=== PATIENT | male | born 1950 | race Caucasian/White ===

== ENCOUNTER 2023-03-15 18:18 | Inpatient (IN) | payer OTHER, SELFPAY ==
[2023-03-15] VITALS (10 sets, daily range): BP systolic 110–140; BP diastolic 58–78; PULSE 58–89; RESP 14–24; TEMP 36.2–36.5; O2SAT 92–95; BMI 52.4
--- NOTE | ~2023-03-15 | XR_ITS ---
EXAMINATION: XR CHEST CLINICAL INFORMATION: Cough COMPARISON: None available. TECHNIQUE: Frontal view of the chest was obtained. FINDINGS: Examination is limited due to patient's body habitus. There is no evidence of infiltrates nodules or pleural effusions seen. Cardiomediastinal silhouette is mildly prominent. XR/XR chest 1V IMPRESSION: Mild cardiomegaly
--- NOTE | ~2023-03-15 | CT_ITS ---
EXAMINATION: CT HEAD WITHOUT CONTRAST CLINICAL INFORMATION: Altered mental status. COMPARISON: CT head dated 03/16/2023. TECHNIQUE: Contiguous axial imaging was performed from the skull base to vertex without intravenous administration of contrast. This CT examination was performed using dose optimization techniques as appropriate, variously including the following: *Automated exposure control *Adjustment of mA and/or kV according to patient size (this includes techniques or standardized protocols for targeted exams where dose is matched to indication/reason for exam; i.e. extremities or head) *Use of iterative reconstruction technique DLP: 828 mGy-cm FINDINGS: There is no intracranial hemorrhage. There is no evidence of acute/subacute cerebral or cerebellar infarction. There is no mass effect. No midline shift. No extra-axial fluid collection. The ventricles are normal in size. The calvarium is intact. Visualized paranasal sinuses are well aerated. There is a small inferior right mastoid air cell effusion. CT/CT head/brain wo IV con IMPRESSION: No acute intracranial pathology.
--- NOTE | ~2023-03-15 | US_ITS ---
EXAMINATION: US ABDOMEN LIMITED CLINICAL INFORMATION: Mid back swelling. COMPARISON: None available. TECHNIQUE: Focused real-time imaging of the right mid back lesion on the left was performed. US/US abdomen limited FINDINGS / IMPRESSION: There is a 2.7 x 2.2 x 2.9 cm complex fluid collection overlying the mid left back. There is a skin tract identified. There is no appreciable flow within or around the lesion. This may represent an abscess.
--- NOTE | ~2023-03-15 | CT_ITS ---
EXAMINATION: CT HEAD WITHOUT CONTRAST CLINICAL INFORMATION: Visual and auditory hallucinations, and nystagmus. COMPARISON: None available. TECHNIQUE: Contiguous axial imaging was performed from the skull base to vertex without intravenous administration of contrast. This CT examination was performed using dose optimization techniques as appropriate, variously including the following: *Automated exposure control *Adjustment of mA and/or kV according to patient size (this includes techniques or standardized protocols for targeted exams where dose is matched to indication/reason for exam; i.e. extremities or head) *Use of iterative reconstruction technique DLP: 826 mGy-cm FINDINGS: There is no acute intra-axial, extra-axial bleed, masses or midline shift. There is no acute infarction evolution. There is no edema. The olguin to white matter differentiation is maintained normal. The lateral ventricles are symmetrical in size and configuration without enlargement. The posterior fossa is unremarkable. Bone windows reveal no calvarial abnormality. There is no scalp soft tissue abnormality. Bilateral paranasal sinuses and mastoid air cells are well-aerated. CT/CT head/brain wo IV con IMPRESSION: No acute intracranial process seen.
--- NOTE | ~2023-03-15 | XR_ITS ---
EXAMINATION: XR CHEST CLINICAL INFORMATION: Hypoxia. COMPARISON: Chest radiograph earlier today at 11:52 AM. TECHNIQUE: AP view of the chest was obtained. FINDINGS: Limited evaluation secondary to rotation and poor inspiratory effort. New multifocal patchy and interstitial opacities. Stable prominence of the cardiomediastinal silhouette. No pleural effusion or pneumothorax. No acute osseous findings. XR/XR chest 1V IMPRESSION: Worsening pulmonary aeration with new multifocal patchy and interstitial opacities; the rapid development of findings are worrisome for aspiration, pulmonary edema and atelectasis. Close attention on follow-up recommended.
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
--- NOTE | 2023-03-15 18:55 | PC.NURSE ---
labs obtained/sent to lab.
[2023-03-15 19:01] LABS: MANUAL DIFF FLAG NO
[2023-03-15 19:07] LABS: Basophils Percent Auto 0.4 % (0-2); Eosinophils Absolute Auto 0.2 X10*3/uL (0.0-0.4); Eosinophils Percent Auto 2.2 % (0-4); Hematocrit 42.1 % (42.0-52.0); Imm Gran Abs Auto 0.01 X10*3/uL (0.00-0.03); Imm Gran Pct Auto 0.1 % (0.0-0.4); Lymphocytes Percent Auto 13.4 % (20-40); Mean Corpuscular HGB Conc 33.3 g/dl (31.0-36.0); Mean Corpuscular Hemoglobin 32.9 pg (27.0-33.0); Mean Corpuscular Volume 99.1 fL (80.0-98.0); Mean Platelet Volume 9.7 fL (9.4-12.4); Monocytes Absolute Auto 0.5 X10*3/uL (0.1-1.2); Monocytes Percent Auto 7.1 % (2-11); Neutrophils Absolute Auto 5.5 x10*3/uL (2.0-8.3); Neutrophils Percent Auto 76.8 % (45-73); Platelet Count 159 X10*3/uL (160-400); Red Blood Count 4.25 X10*6/uL (4.60-5.80); White Blood Count 7.2 X10*3/uL (4.8-10.8)
--- NOTE | 2023-03-15 19:11 | PC.NURSE ---
Assumed care for patient. Pt currently resting at the bedside. No apparent distress noted. O2Sat 95% on 3L NC. Pt states unable to provide a urine sample at this time. Pending lab results. Pt made aware of plan of care.
[2023-03-15 19:17] LABS: Alanine Aminotransferase 12 U/L (0-40); Albumin Level 3.6 g/dL (3.5-5.0); Alkaline Phosphatase 140 U/L (39-117); Anion Gap 16 (12-20); Aspartate Amino Transferase 13 U/L (5-37); Bilirubin Direct 0.3 mg/dL (0.0-0.5); Bilirubin Total 0.8 mg/dL (0.0-1.0); Blood Urea Nitrogen 18 mg/dL (9-16); Calcium 9.5 mg/dL (8.4-10.2); Carbon Dioxide 27 mmol/L (22-29); Chloride 103 mmol/L (96-108); Estimated Glomerular Filt Rate 56; Glucose Random 108 mg/dL (60-115); Potassium 4.2 mmol/L (3.3-5.1); Sodium 142 mmol/L (135-145); Total Protein 6.5 g/dL (6.5-8.0)
--- NOTE | 2023-03-15 19:56 | MHC.EDTECH ---
Patient inc therefore patient changed and repositioned
--- NOTE | 2023-03-15 20:15 | PC.NURSE ---
This nurse called to the bedside as pt was agitated and combative attempting to get out of bed. Pt advised to remain in bed without any success. Pt is unredirectable, yelling and screaming obscenities attempting to grab at the staff. Removed nasal canula. MD at the bedside. Verbal order obtained to medicate pt for safety. Pt medicated. Tolerated well. Pt placed on the air sampling and monitoring and placed back on the nasal canula. Pt then became calm and cooperative and went to sleep with no complication. VSS. Breaths even regular and unlabored. @ 2140 Bladder scan showed 630cc of urine. Straight cath done as pt not able to provide a urine sample. Pt tolerated well. 500cc of urine removed. Urine sent to the lab. @ 2200 Video camera placed at the bedside for safety.
[2023-03-15] MEDS: Haloperidol Lactate 5 MG/ML VIAL IM (20:18)
[2023-03-15] MEDS: diphenhydrAMINE HCL 50 MG/ML VIAL IM (20:18)
[2023-03-15] MEDS: Ziprasidone Mesylate 20 MG VIAL IM (20:18)
[2023-03-15 21:53] LABS: Appearance Urine Clear; Color Urine Yellow; Glucose Urine UA Negative (Negative); Leukocyte Esterase Urine Negative (Negative); Nitrite Urine Negative (Negative); PH 5.5 (5.0-9.0); Urine Blood Negative (Negative); Urine Ketones Negative (Negative); Urine Protein Negative (Neg-Trace)
--- NOTE | 2023-03-15 22:34 | PHA.MEDREC ---
Pharmacy Consult ? Medication Reconciliation Pharmacy has completed the medication reconciliation. Patient came from [place] with med list. Guerda Glez, RoslynD
[2023-03-16] VITALS (7 sets, daily range): BP systolic 113–135; BP diastolic 48–68; PULSE 57–77; RESP 12–20; TEMP 36.7–36.8; O2SAT 92–95
--- NOTE | 2023-03-16 | ECG_ITS ---
Test Reason : QTC PROLONGNATION Blood Pressure : / mmHG Vent. Rate : 069 BPM Atrial Rate : 069 BPM P-R Int : 236 ms QRS Dur : 156 ms QT Int : 446 ms P-R-T Axes : 000 129 -13 degrees QTc Int : 477 ms Sinus rhythm with 1st degree A-V block Right bundle branch block Abnormal ECG No previous ECGs available Referred By: Rhonda Li Electronically Signed By:MARCUS WORTHY MD
[2023-03-16 09:30] LABS: Amphetamine Screen Urine Not Detected (Not Detect); Barbiturates, Urine Not Detected (Not Detect); Benzodiazepines Screen Urine Not Detected (Not Detect); Cannabinoid Screen Urine Not Detected (Not Detect); Cocaine Screen Urine Not Detected (Not Detect); Fentanyl, urine Not Detected (Not Detect); Opiate Screen Urine Not Detected (Not Detect); Phencyclidine Screen Urine Not Detected (Not Detect)
--- NOTE | 2023-03-16 10:18 | PC.NURSE ---
Pt alert, answering questions appropriately. Breathing even and unlabored. Skin warm and dry. Pt denies any pain or SOB, resting in bed. Pt noted to be incontinent of urine, cleaned and [place] cath placed. No agitation or aggression noted.
[2023-03-16 11:41] LABS: TSH reflex Free T4 3.36 uIU/mL (0.32-4.0)
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
[2023-03-16 12:23] LABS: Glucose, Whole Blood 103 mg/dL (60-115)
[2023-03-16 12:35] LABS: Iron 119 mcg/dL (45-160); Percent Iron Saturation 53 % (15-50); Total Iron Binding Capacity 223 mcg/dL (228-428); Unsaturated Iron Binding 104 ug/dL
[2023-03-16 12:49] LABS: Ferritin 144 ng/mL (20-250)
[2023-03-16] MEDS: Furosemide 40 MG TABLET PO (13:02)
[2023-03-16] MEDS: carvediloL 3.125 MG TABLET PO ×2 (13:02→21:12)
[2023-03-16] MEDS: Aspirin Enteric Coated 81 MG TABLET.DR PO (13:02)
[2023-03-16] MEDS: HaloperidoL 1 MG TABLET PO ×2 (13:02→21:11)
[2023-03-16] MEDS: Clopidogrel Bisulfate 75 MG TABLET PO (13:02)
[2023-03-16] MEDS: metFORMIN HCl ER 500 MG TAB.ER.24H PO (13:07)
[2023-03-16] MEDS: Docusate Sodium 100 MG CAPSULE PO ×2 (13:07→21:11)
[2023-03-16] MEDS: Folic Acid 1 MG TABLET PO (13:07)
[2023-03-16] MEDS: Fluticasone/Umeclidinium/Vilanterol 200/62.5/25 BLST.W.DEV 1 PUFF INHALE (13:10)
[2023-03-16 13:17] LABS: Glucose, Whole Blood 95 mg/dL (60-115)
--- NOTE | 2023-03-16 13:21 | PC.NURSE ---
Pt accepted some meds. VSS. Seen by Rhonda JEROME and assessed. Pt sleeping but awakes easily to voice and continues to follow commands. POC checked and 95. Declines lunch, Metformin held as pt refused breakfast as well.
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
--- NOTE | 2023-03-16 15:24 | PC.NURSE ---
Pt placed on hospital bed for comfort Tech attempted Vitamin b12 and folate, unable, no pt refusing more sticks at this time, will inquire to see if lab can add on to blood in lab at this time, dr Guzman aware
--- NOTE | 2023-03-16 19:11 | PC.NURSE ---
Assumed care of pt. pt lying on stretcher, eyes closed, respiratinos even and unlabored, no acute distress at this time.
--- NOTE | 2023-03-16 20:16 | MHC.EDTECH ---
[place] catheter placed on patient at 2015
[2023-03-16] MEDS: traZODone HCL 50 MG TABLET PO (21:11)
[2023-03-16] MEDS: Atorvastatin Calcium 80 MG TABLET PO (21:11)
[2023-03-16] MEDS: Gabapentin 300 MG CAPSULE PO (21:11)
[2023-03-16] MEDS: Sennosides 8.6 MG TABLET 17.2 MG PO (21:11)
[2023-03-17] VITALS (9 sets, daily range): BP systolic 103–128; BP diastolic 49–74; PULSE 58–70; RESP 16–22; TEMP 36.3–36.7; O2SAT 92–94
--- NOTE | 2023-03-17 01:15 | PC.NURSE ---
Pt bedding changed, pt cleaned from incontinence of stool and urine. Pt AxO x4, but states unable to press call gamboa prior to BM and urination.
--- NOTE | 2023-03-17 03:06 | PC.NURSE ---
Pt bedding and pads changed again after pt incontinent of stool and urine. pt sts that he is aware of when he has to go but unaware of why he will not notify staff.
--- NOTE | 2023-03-17 07:11 | MHC.EDTECH ---
This pct attempted to draw labs on patient and the patients states he doesnt want anymore labs drawn. RN Aware
--- NOTE | 2023-03-17 07:23 | PC.NURSE ---
Resumed care of patient, he is currently resting. PCT in room collecting vitals, pt continues to refuse lab work ordered d/t multiple attempts, MD aware. Pt sating 88% when sleeping but comes up to mid 90s on his own.
--- NOTE | 2023-03-17 07:57 | PC.NURSE ---
Pt refusing to feed himself breakfast, this RN asked patient what he would do if he was at home, where he stated he would feed himself. he stated his arms are too weak for him to do it here.
[2023-03-17] MEDS: Fluticasone/Umeclidinium/Vilanterol 200/62.5/25 BLST.W.DEV 1 PUFF INHALE (08:02)
--- NOTE | 2023-03-17 09:29 | PC.NURSE ---
Ths RN attempted to bring in morning medications for patient he reported he was not going to take them because the bed was to uncomfortable. Will attempt again. Provider aware.
--- NOTE | 2023-03-17 10:42 | PC.NURSE ---
This RN attemptd to give patient his morning medications as he was in agreement if given with chocolate ice cream. However this RN and tech were at bedside and patient began to spit ice cream and medications out and in our faces. Stating the doctors dont care, I am not taking it, it does nothing for me . Provider aware of situation and that patient is refusing medications.
[2023-03-17 11:53] LABS: COVID-19 Test Negative (Negative); IDNOW Serial# 152EDE1D
--- NOTE | 2023-03-17 13:19 | PC.NURSE ---
vss and up to date at this time. pt calm/cooperative a this time/eating lunch. daughter bedside visiting pt at this time. pt waiting to be transferred to [facility] at this time. no sob/wob noted. respirations even and unlabored. bed alarm turned on. camera in place for safety precautions. call gamboa placed within reach.
--- NOTE | 2023-03-17 13:44 | PC.NURSE ---
this RN gave report to SREE De La Cruz on [facility] at this time. transport notified at this time.
[2023-03-17] MEDS: Gabapentin 300 MG CAPSULE PO (14:39)
--- NOTE | 2023-03-17 15:33 | P.CNPS_ITS ---
History of Present Illness Date of Service: 03/17/2023 Chief Complaint: FROM SNF,HALLUCINATIONS, HCP GAVE CONSENT, NO SECT Sources of Information: patient interviewed, chart reviewed and crisis/core team assessment reviewed Additional Sources of Information: daughter HPI Narrative: Interim Hx: met with pt and daughter. She reports pt is almost blind due to cataracts. She reports he appears at baseline which is calm, although evidently with significant cognitive impairments. Daughter reports plan is for pt to return home with services. At this point, after one month of short term rehab minimal improvement is noted. He reports he is fine, knows he is in hospital but confused as to situation. Diagnostics Vital Signs (24Hr): Vital Signs - 24 hr 03/16/23 16:03 03/16/23 19:11 03/16/23 23:45 Temperature 98.1 F Pulse Rate 57 74 Respiratory Rate 20 16 18 Blood Pressure 135/61 122/68 Pulse Oximetry 95 92 Oxygen Delivery Method Nasal Cannula Room Air Oxygen Flow Rate 3 03/17/23 06:17 03/17/23 07:15 03/17/23 08:03 Temperature 97.4 F 97.9 F Pulse Rate 66 70 70 Respiratory Rate 18 16 16 Blood Pressure 128/66 120/68 Pulse Oximetry 94 93 Oxygen Delivery Method Room Air Nasal Cannula Oxygen Flow Rate 3 03/17/23 13:17 03/17/23 14:41 Temperature 98.0 F 97.6 F Pulse Rate 59 58 Respiratory Rate 16 16 Blood Pressure 103/74 115/49 L Pulse Oximetry 93 93 Oxygen Delivery Method Nasal Cannula Nasal Cannula Oxygen Flow Rate 3 3 BMI result Body Mass Index 52.4 Labs 03/15/23 18:55 03/15/23 18:55 Labs: Laboratory Results - last 48 hr 03/15/23 03/15/23 03/15/23 18:55 21:44 21:46 WBC 7.2 RBC 4.25 L Hgb 14.0 Hct 42.1 MCV 99.1 H MCH 32.9 MCHC 33.3 RDW 15.0 Plt Count 159 L MPV 9.7 Immature Gran % (Auto) 0.1 Neut % (Auto) 76.8 H Lymph % (Auto) 13.4 L Ransom % (Auto) 7.1 Eos % (Auto) 2.2 Baso % (Auto) 0.4 Lymph # (Auto) 1.0 L Ransom # (Auto) 0.5 Eos # (Auto) 0.2 Baso # (Auto) 0.0 Abs Immat Gran (auto) 0.01 Absolute Neuts (auto) 5.5 Absolute Nucleated RBC 0.000 Nucleated RBC % (auto) 0.0 Sodium 142 Potassium 4.2 Chloride 103 Carbon Dioxide 27 Anion Gap 16 BUN 18 H Creatinine 1.25 Estim Creat Clear Calc 88.0 Estimated GFR 56 POC Glucose Random Glucose 108 Calcium 9.5 Iron TIBC % Saturation Unsat Iron Binding Ferritin Total Bilirubin 0.8 Direct Bilirubin 0.3 AST 13 ALT 12 Alkaline Phosphatase 140 H Total Protein 6.5 Albumin 3.6 TSH Urine Color Yellow Urine Appearance Clear Urine pH 5.5 Ur Specific Kevil 1.020 Urine Protein Negative Urine Glucose (UA) Negative Urine Ketones Negative Urine Blood Negative Urine Nitrite Negative Ur Leukocyte Esterase Negative Urine Opiates Screen Not Detected Urine Fentanyl Screen Not Detected Ur Barbiturates Screen Not Detected Ur Phencyclidine Scrn Not Detected Ur Amphetamines Screen Not Detected U Benzodiazepines Scrn Not Detected Urine Cocaine Screen Not Detected U Marijuana (THC) Screen Not Detected COVID-19 ([facility]) COVID-[employer]Move 03/16/23 03/16/23 03/16/23 10:58 12:18 13:11 WBC RBC Hgb Hct MCV MCH MCHC RDW Plt Count MPV Immature Gran % (Auto) Neut % (Auto) Lymph % (Auto) Ransom % (Auto) Eos % (Auto) Baso % (Auto) Lymph # (Auto) Ransom # (Auto) Eos # (Auto) Baso # (Auto) Abs Immat Gran (auto) Absolute Neuts (auto) Absolute Nucleated RBC Nucleated RBC % (auto) Sodium Potassium Chloride Carbon Dioxide Anion Gap BUN Creatinine Estim Creat Clear Calc Estimated GFR POC Glucose 103 95 Random Glucose Calcium Iron 119 TIBC 223 L % Saturation 53 H Unsat Iron Binding 104 Ferritin 144 Total Bilirubin Direct Bilirubin AST ALT Alkaline Phosphatase Total Protein Albumin TSH 3.36 Urine Color Urine Appearance Urine pH Ur Specific Kevil Urine Protein Urine Glucose (UA) Urine Ketones Urine Blood Urine Nitrite Ur Leukocyte Esterase Urine Opiates Screen Urine Fentanyl Screen Ur Barbiturates Screen Ur Phencyclidine Scrn Ur Amphetamines Screen U Benzodiazepines Scrn Urine Cocaine Screen U Marijuana (THC) Screen COVID-19 ([facility]) COVID-19 [employer]) 03/17/23 11:26 WBC RBC Hgb Hct MCV MCH MCHC RDW Plt Count MPV Immature Gran % (Auto) Neut % (Auto) Lymph % (Auto) Ransom % (Auto) Eos % (Auto) Baso % (Auto) Lymph # (Auto) Ransom # (Auto) Eos # (Auto) Baso # (Auto) Abs Immat Gran (auto) Absolute Neuts (auto) Absolute Nucleated RBC Nucleated RBC % (auto) Sodium Potassium Chloride Carbon Dioxide Anion Gap BUN Creatinine Estim Creat Clear Calc Estimated GFR POC Glucose Random Glucose Calcium Iron TIBC % Saturation Unsat Iron Binding Ferritin Total Bilirubin Direct Bilirubin AST ALT Alkaline Phosphatase Total Protein Albumin TSH Urine Color Urine Appearance Urine pH Ur Specific Kevil Urine Protein Urine Glucose (UA) Urine Ketones Urine Blood Urine Nitrite Ur Leukocyte Esterase Urine Opiates Screen Urine Fentanyl Screen Ur Barbiturates Screen Ur Phencyclidine Scrn Ur Amphetamines Screen U Benzodiazepines Scrn Urine Cocaine Screen U Marijuana (THC) Screen COVID-19 ([facility]) Negative COVID-19 Clin Com See Note Imaging Radiology Impressions: ITS Impressions Head CT 03/16/23 11:03 IMPRESSION: No acute intracranial process seen. Mental Status Exam Mental Status Exam Narrative: Appearance: MO, wearing hospital gown, poor hygiene, in NAD Behavior: difficult to engage, poor attention Psychomotor: no agitation or retardation noted Speech: mumbling, single words, mostly unintelligible, minimally spontaneous TP: disorganized Affect: somewhat somnolent Insight/judgment: impaired x 2 Cog/memory: alert with verbal stimuli, poor attention, knows he is in the hospital but thinks he is at either [place] or [place], not oriented to situation Medications Medications Current Medications Albuterol Sulfate (Albuterol Sulfate 90 Mcg 8 Gm Inhaler) 2 puff INHALE Q4H PRN PRN Reason: Wheezing Aspirin (Aspirin Enteric Coated 81 Mg Tablet.) 81 mg PO DAILY [facility] Last Admin: 03/17/23 10:41 Dose: Not Given Atorvastatin Calcium (Atorvastatin Calcium 80 Mg Tablet) 80 mg PO BEDTIME [facility] Last Admin: 03/16/23 21:11 Dose: 80 mg Carvedilol (Carvedilol 3.125 Mg Tablet) 3.125 mg PO BID [facility]; Protocol Last Admin: 03/17/23 10:41 Dose: Not Given Clopidogrel Bisulfate (Clopidogrel Bisulfate 75 Mg Tablet) 75 mg PO DAILY [facility] Last Admin: 03/17/23 10:41 Dose: Not Given Cyanocobalamin (Cyanocobalamin (Vitamin B-12) 1,000 Mcg/Ml Vial) 1,000 mcg IM Q30D [facility] Docusate Sodium (Docusate Sodium 100 Mg Capsule) 100 mg PO BID [facility] Last Admin: 03/17/23 10:42 Dose: Not Given Fluticasone/Umeclidinium/Vilanterol (Fluticasone/Umeclidinium/Vilanterol 200/62.5/25 Blst.W.Dev) 1 puff INHALE RDAILY [facility] Last Admin: 03/17/23 08:02 Dose: 1 puff Folic Acid (Folic Acid 1 Mg Tablet) 1 mg PO DAILY [facility] Last Admin: 03/17/23 10:42 Dose: Not Given Furosemide (Furosemide 40 Mg Tablet) 40 mg PO DAILY [facility]; Protocol Last Admin: 03/17/23 10:42 Dose: Not Given Gabapentin (Gabapentin 300 Mg Capsule) 300 mg PO TID [facility] Last Admin: 03/17/23 14:39 Dose: 300 mg Haloperidol (Haloperidol 1 Mg Tablet) 1 mg PO BID [facility] Last Admin: 03/17/23 10:42 Dose: Not Given Lactulose (Lactulose 20 Gm/30 Ml Solution) 10 gm PO DAILY [facility] Last Admin: 03/17/23 10:42 Dose: Not Given Metformin HCl (Metformin Hcl Er 500 Mg Tab.Er.24h) 500 mg PO DAILY [facility] Last Admin: 03/17/23 10:42 Dose: Not Given Polyethylene Glycol (Polyethylene Glycol 3350 17 Gm Powd.Pack) 17 gm PO DAILY [facility] Last Admin: 03/17/23 10:42 Dose: Not Given Senna (Sennosides 8.6 Mg Tablet) 17.2 mg PO BEDTIME [facility] Last Admin: 03/16/23 21:11 Dose: 17.2 mg Sertraline HCl (Sertraline Hcl 100 Mg Tablet) 100 mg PO DAILY [facility] Last Admin: 03/17/23 10:42 Dose: Not Given Trazodone HCl (Trazodone Hcl 50 Mg Tablet) 50 mg PO BEDTIME [facility] Last Admin: 03/16/23 21:11 Dose: 50 mg Allergies Allergies Allergy/AdvReac Type Severity Reaction Status Date / Time No Known Allergies Allergy Verified 03/15/23 18:32 Assessment & Plan Assessment & Plan (1) Delirium due to another medical condition: Status: Acute Code(s): F05 - Delirium due to known physiological condition (2) Major neurocognitive disorder: Status: Acute Code(s): F03.90 - Unspecified dementia, unspecified severity, without behavioral disturbance, psychotic disturbance, mood disturbance, and anxiety Plan Mr. Villalobos is a 72 year-old male with hx of dementia who presents with s/s of delirum--> poor attention, disorganized thought process (which apparently not baseline), sent from [facility] due to combative behaviors at facility. PLAN 03/17/2023- pt appears calm, with evident memory/cognitive impairment. Still not oriented to situation but knows this is a hospital. Daughter states this seems to be his baseline, does not think he is far off. We discussed plan to return home with services- will referred pt back to case management Total time managing care of this patient today ____ minutes.
[2023-03-17] MEDS: diphenhydrAMINE HCL 50 MG/ML VIAL IM (18:04)
[2023-03-17] MEDS: Ziprasidone Mesylate 20 MG VIAL IM (18:05)
[2023-03-17] MEDS: Haloperidol Lactate 5 MG/ML VIAL IM (18:05)
--- NOTE | 2023-03-17 18:09 | PC.NURSE ---
PT began screaming profanities at multiple staff members, kicking staff, grabbing staffs cloths to move closer to pt. Security called to bedside, IM medication administered per order
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
--- NOTE | 2023-03-17 19:28 | PC.NURSE ---
Pt continues to rip off O2 probe, not allowing Bp cuff on. HCP is back at bedside, CM requested to go talk with family that is at bedside.
[2023-03-17 21:10] LABS: Glucose, Whole Blood 83 mg/dL (60-115)
[2023-03-17 22:02] LABS: Folate 7.6 ng/mL (> or = 4.0); Vitamin B12 852 pg/mL (200-900)
[2023-03-18 02:08] VITALS: BP 129/58; PULSE 55; RESP 16; O2SAT 92
--- NOTE | 2023-03-18 02:12 | MHC.EDTECH ---
External cath. placed at this time.
--- NOTE | 2023-03-18 06:30 | PC.NURSE ---
Pt overall had an uneventful night. Refused PO meds but allowed staff to assist with cleaning him up due to incontinence. Tech applied [place] cath, pt resting in bed, breathing even an unlabored, O2 sats 97%on 3L while sleeping. Pt had dyspnea while at rest.
[2023-03-18] MEDS: Fluticasone/Umeclidinium/Vilanterol 200/62.5/25 BLST.W.DEV 1 PUFF INHALE (07:47)
[2023-03-18 07:49] VITALS: PULSE 63; RESP 16; O2SAT 92
[2023-03-18] MEDS: Gabapentin 300 MG CAPSULE PO ×3 (08:30→20:11)
[2023-03-18] MEDS: Sertraline HCL 100 MG TABLET PO (08:31)
[2023-03-18] MEDS: HaloperidoL 1 MG TABLET PO (08:31)
[2023-03-18 09:20] VITALS: PULSE 63
--- NOTE | 2023-03-18 10:18 | PC.NURSE ---
pt calm, cooperative. no distress, behavior non-concerning at this time. plan of care ongoing.
--- NOTE | 2023-03-18 12:42 | PC.NURSE ---
linens and bed changed. pt was incontinent of large amounts of soft brown stool.
--- NOTE | 2023-03-18 13:04 | P.CNPS_ITS ---
History of Present Illness Date of Service: 03/18/23 Chief Complaint: FROM SNF,HALLUCINATIONS, HCP GAVE CONSENT, NO SECT Sources of Information: patient interviewed, chart reviewed and crisis/core team assessment reviewed HPI Narrative: Interim Hx: pt combative last evening, trying to take his IV and throwing things to staff. He received IM geodone and ativan. Will schedule seroquel 50mg po TID for agitation. Diagnostics Vital Signs (24Hr): Vital Signs - 24 hr 03/17/23 13:17 03/17/23 14:41 03/17/23 18:05 Temperature 98.0 F 97.6 F Pulse Rate 59 58 70 Respiratory Rate 16 16 22 H Blood Pressure 103/74 115/49 L Pulse Oximetry 93 93 93 Oxygen Delivery Method Nasal Cannula Nasal Cannula Nasal Cannula Oxygen Flow Rate 3 3 2 03/17/23 18:20 03/17/23 18:35 03/17/23 18:50 Temperature Pulse Rate 68 Respiratory Rate 16 18 16 Blood Pressure Pulse Oximetry 92 93 Oxygen Delivery Method Nasal Cannula Nasal Cannula Oxygen Flow Rate 2 2 03/18/23 02:08 03/18/23 07:49 03/18/23 09:20 Temperature Pulse Rate 55 63 63 Respiratory Rate 16 16 Blood Pressure 129/58 L Pulse Oximetry 92 Oxygen Delivery Method Room Air Nasal Cannula Oxygen Flow Rate 3 BMI result Body Mass Index 52.4 Labs 03/15/23 18:55 03/15/23 18:55 Labs: Laboratory Results - last 48 hr 03/16/23 03/17/23 03/17/23 13:11 11:26 20:53 POC Glucose 95 83 Vitamin B12 Folate COVID-19 ([facility]) Negative COVID-19 Clin Com See Note 03/17/23 21:06 POC Glucose Vitamin B12 852 Folate 7.6 COVID-19 ([facility]) COVID-19 Clin Com Imaging Radiology Impressions: ITS Impressions Head CT 03/16/23 11:03 IMPRESSION: No acute intracranial process seen. Mental Status Exam Mental Status Exam Narrative: Appearance: MO, wearing hospital gown, poor hygiene, in NAD Behavior: difficult to engage, poor attention Psychomotor: no agitation or retardation noted Speech: mumbling, single words, mostly unintelligible, minimally spontaneous TP: disorganized Affect: somewhat somnolent Insight/judgment: impaired x 2 Cog/memory: alert with verbal stimuli, poor attention, knows he is in the hospital but thinks he is at either [place] or [place], not oriented to situation Medications Medications Current Medications Albuterol Sulfate (Albuterol Sulfate 90 Mcg 8 Gm Inhaler) 2 puff INHALE Q4H PRN PRN Reason: Wheezing Aspirin (Aspirin Enteric Coated 81 Mg Tablet.) 81 mg PO DAILY [facility] Last Admin: 03/18/23 08:31 Dose: Not Given Atorvastatin Calcium (Atorvastatin Calcium 80 Mg Tablet) 80 mg PO BEDTIME [facility] Last Admin: 03/17/23 21:36 Dose: Not Given Carvedilol (Carvedilol 3.125 Mg Tablet) 3.125 mg PO BID [facility]; Protocol Last Admin: 03/18/23 08:32 Dose: Not Given Clopidogrel Bisulfate (Clopidogrel Bisulfate 75 Mg Tablet) 75 mg PO DAILY [facility] Last Admin: 03/18/23 08:32 Dose: Not Given Cyanocobalamin (Cyanocobalamin (Vitamin B-12) 1,000 Mcg/Ml Vial) 1,000 mcg IM Q30D [facility] Docusate Sodium (Docusate Sodium 100 Mg Capsule) 100 mg PO BID [facility] Last Admin: 03/18/23 08:32 Dose: Not Given Fluticasone/Umeclidinium/Vilanterol (Fluticasone/Umeclidinium/Vilanterol 200/62.5/25 Blst.W.Dev) 1 puff INHALE RDAILY [facility] Last Admin: 03/18/23 07:47 Dose: 1 puff Folic Acid (Folic Acid 1 Mg Tablet) 1 mg PO DAILY [facility] Last Admin: 03/18/23 08:32 Dose: Not Given Furosemide (Furosemide 40 Mg Tablet) 40 mg PO DAILY [facility]; Protocol Last Admin: 03/18/23 08:32 Dose: Not Given Gabapentin (Gabapentin 300 Mg Capsule) 300 mg PO TID [facility] Last Admin: 03/18/23 08:30 Dose: 300 mg Haloperidol (Haloperidol 1 Mg Tablet) 1 mg PO BID [facility] Last Admin: 03/18/23 08:31 Dose: 1 mg Lactulose (Lactulose 20 Gm/30 Ml Solution) 10 gm PO DAILY [facility] Last Admin: 03/18/23 08:32 Dose: Not Given Metformin HCl (Metformin Hcl Er 500 Mg Tab.Er.24h) 500 mg PO DAILY [facility] Last Admin: 02/01/24 08:32 Dose: Not Given Polyethylene Glycol (Polyethylene Glycol 3350 17 Gm Powd.Pack) 17 gm PO DAILY [facility] Last Admin: 03/18/23 08:32 Dose: Not Given Senna (Sennosides 8.6 Mg Tablet) 17.2 mg PO BEDTIME [facility] Last Admin: 03/17/23 21:36 Dose: Not Given Sertraline HCl (Sertraline Hcl 100 Mg Tablet) 100 mg PO DAILY [facility] Last Admin: 03/18/23 08:31 Dose: 100 mg Trazodone HCl (Trazodone Hcl 50 Mg Tablet) 50 mg PO BEDTIME [facility] Last Admin: 03/17/23 21:36 Dose: Not Given Allergies Allergies Allergy/AdvReac Type Severity Reaction Status Date / Time No Known Allergies Allergy Verified 03/15/23 18:32 Assessment & Plan Assessment & Plan (1) Major neurocognitive disorder: Status: Acute Code(s): F03.90 - Unspecified dementia, unspecified severity, without behavioral disturbance, psychotic disturbance, mood disturbance, and anxiety Plan Mr. Villalobos is a 72 year-old male with hx of dementia who presents with s/s of delirum--> poor attention, disorganized thought process (which apparently not baseline), sent from [facility] due to combative behaviors at facility. PLAN 03/17/2023- pt appears calm, with evident memory/cognitive impairment. Still not oriented to situation but knows this is a hospital. Daughter states this seems to be his baseline, does not think he is far off. We discussed plan to return home with services- will referred pt back to case management 03/18 start seroquel 50mg po TID for agitation. monitor over sedation, EKG maintain Qtc<500ms, K>4, Mg>2. Total time managing care of this patient today ____ minutes.
[2023-03-18] MEDS: QUEtiapine Fumarate 50 MG TABLET PO ×2 (14:03→20:11)
--- NOTE | 2023-03-18 14:09 | MHC.CM.ED ---
Patient remains in ER. Received IM Geodon last night. Physical therapy recommending [facility] inspector care. Anticipate patient will not be able to be placed for at least 48 hours. Per Rhonda, fuels engineer, not inpatient psych appropriate. Will make medication recommendations. Continue to monitor for d/c needs.
[2023-03-18 14:41] VITALS: BP 110/53; PULSE 77; RESP 16; TEMP 36.5; O2SAT 93
--- NOTE | 2023-03-18 15:11 | PC.NURSE ---
pt ate lunch well, ate all of sandwich, chocolate pudding and apple sauce. took medications as ordered without issue.
--- NOTE | 2023-03-18 15:38 | PC.NURSE ---
pt bed linens changed, incontinent of stool
--- NOTE | 2023-03-18 16:28 | MHC.CM.ED ---
Met with patient's daughter/HCP, Deirdre and patient's sig other, Isabell, in family room. Physical therapy manisha explained. Had extensive conversation about appropriate level of care. At this time both are agreeable that going home is not reasonable because Isabell does not have enough help to assist patient. Deirdre works full stack software developer and is not able to help Isabell. Both are aware patient will be difficult to place due to behaviors and dementia. Both agreeable to referral being broadcasted. Referral will be broadcasted in [facility]. Continue to monitor for d/c needs.
[2023-03-18] MEDS: Docusate Sodium 100 MG CAPSULE PO (20:11)
[2023-03-18] MEDS: Atorvastatin Calcium 80 MG TABLET PO (20:11)
[2023-03-18] MEDS: carvediloL 3.125 MG TABLET PO (20:11)
[2023-03-18] MEDS: traZODone HCL 50 MG TABLET PO (20:11)
[2023-03-18] MEDS: Sennosides 8.6 MG TABLET 17.2 MG PO (20:11)
[2023-03-18 20:22] VITALS: BP 133/57; PULSE 76; RESP 17; TEMP 36.7; O2SAT 95
[2023-03-18 23:00] VITALS: BP 135/60; PULSE 70; RESP 17; TEMP 36.7; O2SAT 94
--- NOTE | 2023-03-19 02:05 | PC.NURSE ---
Patient is alert and oriented to self and place, answering questions appropriately. Breathing even and unlabored. Patient noted to be incontinent of urine and soft, brown stool, moderate amount. Lakesha care provided, bed linen changed. Skin is intact. Patient denies any pain or SOB, resting in bed, no agitation or aggression noted.
[2023-03-19 05:50] VITALS: BP 128/56; PULSE 68; RESP 20; TEMP 36.8; O2SAT 90
[2023-03-19] MEDS: Fluticasone/Umeclidinium/Vilanterol 200/62.5/25 BLST.W.DEV 1 PUFF INHALE (07:52)
[2023-03-19 07:55] VITALS: PULSE 75; RESP 18; O2SAT 94
[2023-03-19] MEDS: Lactulose 20 GM/30 ML SOLUTION 10 GM PO (09:49)
[2023-03-19] MEDS: Gabapentin 300 MG CAPSULE PO ×3 (09:51→20:17)
[2023-03-19] MEDS: Aspirin Enteric Coated 81 MG TABLET.DR PO (09:51)
[2023-03-19] MEDS: Folic Acid 1 MG TABLET PO (09:51)
[2023-03-19] MEDS: Furosemide 40 MG TABLET PO (09:52)
[2023-03-19] MEDS: Docusate Sodium 100 MG CAPSULE PO ×2 (09:52→20:17)
[2023-03-19] MEDS: QUEtiapine Fumarate 50 MG TABLET PO ×3 (09:52→20:17)
[2023-03-19] MEDS: Clopidogrel Bisulfate 75 MG TABLET PO (09:52)
[2023-03-19] MEDS: metFORMIN HCl ER 500 MG TAB.ER.24H PO (09:52)
[2023-03-19] MEDS: carvediloL 3.125 MG TABLET PO ×2 (09:52→20:17)
[2023-03-19 09:57] VITALS: BP 136/57; PULSE 74; RESP 18; TEMP 36.6; O2SAT 96
[2023-03-19] MEDS: Sertraline HCL 100 MG TABLET PO (10:10)
--- NOTE | 2023-03-19 10:24 | MHC.CM.ED ---
Addendum entered by Alfreda Encinas 03/19/23 11:32: No bed offers at this time. Referral broadcasted to all facilities in the [facility] contracted with [facility]. 150 referrals made. Original Note: Patient remains in ER. No IM meds overnight. Referral broadcasted within 25 miles to all facilities that are contracted with [facility]. Received telephone call from Deirdre asking about a referral to [facility]. T/W explained Deirdre would need to complete an application for the facility with a copy of patient's [id number] from the [employer]. Deirdre is unsure is patient has this form at home. Deirdre encouraged to [facility] [place] for help to see how she could obtain one. Also explained there is a waiting list. Deirdre aware referral has been broadcasted. Continue to monitor for d/c needs.
--- NOTE | 2023-03-19 10:33 | PC.NURSE ---
PO meds given as documented, pt denies pain. Pt cleaned, changed, new claritza and linen given. Daughter called for update. Plan of care remains the same. Pt aware and his daughter aware.
[2023-03-19 14:58] VITALS: BP 125/53; PULSE 72; RESP 22; TEMP 36.8; O2SAT 87
--- NOTE | 2023-03-19 19:28 | PC.NURSE ---
this rn assumed care of pt. pt resting in stretcher comfortably, no acute distress noted.
[2023-03-19] MEDS: traZODone HCL 50 MG TABLET PO (20:17)
[2023-03-19] MEDS: Sennosides 8.6 MG TABLET 17.2 MG PO (20:17)
[2023-03-19] MEDS: Atorvastatin Calcium 80 MG TABLET PO (20:17)
--- NOTE | 2023-03-19 20:21 | PC.NURSE ---
pt medicated per apr. pt tolerated well with juice.
[2023-03-20 04:55] VITALS: BP 122/62; PULSE 82; RESP 16; TEMP 36.7; O2SAT 98
--- NOTE | 2023-03-20 04:58 | MHC.EDTECH ---
Care provided, cleaned up, change sheets
[2023-03-20 07:31] LABS: Glucose, Whole Blood 109 mg/dL (60-115)
[2023-03-20 07:36] VITALS: PULSE 82; RESP 16
[2023-03-20] MEDS: Fluticasone/Umeclidinium/Vilanterol 200/62.5/25 BLST.W.DEV 1 PUFF INHALE (07:36)
[2023-03-20 07:53] VITALS: BP 143/71; PULSE 84; RESP 20; O2SAT 92
[2023-03-20] MEDS: Clopidogrel Bisulfate 75 MG TABLET PO (10:00)
[2023-03-20] MEDS: Docusate Sodium 100 MG CAPSULE PO ×2 (10:00→20:31)
[2023-03-20] MEDS: Furosemide 40 MG TABLET PO (10:00)
[2023-03-20] MEDS: Sertraline HCL 100 MG TABLET PO (10:00)
[2023-03-20] MEDS: Gabapentin 300 MG CAPSULE PO ×3 (10:00→20:31)
[2023-03-20] MEDS: metFORMIN HCl ER 500 MG TAB.ER.24H PO (10:00)
[2023-03-20] MEDS: polyethylene glycoL 3350 17 GM POWD.PACK PO ×2 (10:01→10:04)
[2023-03-20] MEDS: QUEtiapine Fumarate 50 MG TABLET PO ×3 (10:01→20:31)
[2023-03-20] MEDS: carvediloL 3.125 MG TABLET PO ×2 (10:01→20:31)
[2023-03-20] MEDS: Aspirin Enteric Coated 81 MG TABLET.DR PO (10:02)
[2023-03-20] MEDS: Folic Acid 1 MG TABLET PO (10:04)
[2023-03-20] MEDS: Lactulose 20 GM/30 ML SOLUTION 10 GM PO (10:04)
--- NOTE | 2023-03-20 10:25 | PC.NURSE ---
patient found to be incontinent of urine, patient cleaned up, on new pads. patient pulled up and repositioned in bed. medicated per APR. patient awake and alert, skin PWD.
[2023-03-20 11:32] VITALS: BP 140/68; PULSE 78; RESP 18; TEMP 36.8; O2SAT 94
--- NOTE | 2023-03-20 11:33 | PC.NURSE ---
pt comes from ED in hospital bed. pt a&o x4, pleasant, calm, and cooperative. pt wearing sunglasses and listening to tv, given blanket. pt resting quietly joe. rr even/unlabored, on 2L O2. pt aware of care plan. call gamboa within reach. plan of care ongoing.
--- NOTE | 2023-03-20 12:16 | PC.NURSE ---
pt 1:1 feed, consumed ~25% of meal.
[2023-03-20 12:18] LABS: Glucose, Whole Blood 149 mg/dL (60-115)
--- NOTE | 2023-03-20 13:42 | PC.NURSE ---
PT INCONTINENT OF LOOSE BM, URINE. LINENS CHANGED, PT CLEANED UP. TEXAS CATH PLACED WITH LEG BAG.
[2023-03-20 14:00] VITALS: BP 138/64; PULSE 80; RESP 22; TEMP 36.5; O2SAT 92
[2023-03-20 16:36] LABS: Glucose, Whole Blood 124 mg/dL (60-115)
--- NOTE | 2023-03-20 18:31 | PC.NURSE ---
pt complaining of pain to rear. repositioned in bed for comfort, pillow placed on right side underneath hip. pt sts more comfortable. resting quietly listening to tv. rr even/unlabored. no signs of distress noted. plan of care ongoing. sitter camera in place for pt safety.
[2023-03-20 20:14] VITALS: BP 136/64; PULSE 78; RESP 16; TEMP 36.7; O2SAT 96
[2023-03-20] MEDS: traZODone HCL 50 MG TABLET PO (20:31)
[2023-03-20] MEDS: Sennosides 8.6 MG TABLET 17.2 MG PO (20:31)
[2023-03-20] MEDS: Atorvastatin Calcium 80 MG TABLET PO (20:31)
--- NOTE | 2023-03-20 21:33 | PC.NURSE ---
Pt repositioned HOB elevated took all pm meds resting comfortably offers no complaints.
[2023-03-21 06:00] VITALS: BP 152/61; PULSE 71; RESP 20; TEMP 36.4; O2SAT 93
[2023-03-21 07:15] LABS: Glucose, Whole Blood 119 mg/dL (60-115)
[2023-03-21 07:27] VITALS: PULSE 71; RESP 20
[2023-03-21] MEDS: Fluticasone/Umeclidinium/Vilanterol 200/62.5/25 BLST.W.DEV 1 PUFF INHALE (07:27)
--- NOTE | 2023-03-21 09:50 | PC.NURSE ---
pt resting iwth eyes clsoed, RR even, unlabored, pt in NAD at this time. plan to medicate with AM meds
--- NOTE | 2023-03-21 11:13 | PC.NURSE ---
PT daughter at bedside to visit with pt. informed her pt had an uneventful night and has been allowed to sleep this AM. AM medications not administered at this time as unable to sufficiently wake pt to safely take medications. Shane JEROME made aware.
[2023-03-21 11:26] LABS: Glucose, Whole Blood 105 mg/dL (60-115)
--- NOTE | 2023-03-21 13:07 | PC.NURSE ---
Shane ADMINISTRATIVE JOB TITLES update on pt, verbal order to continue to hold seroquel and other meds until pt more awake - will reassess seroquel dosing and strength
[2023-03-21 13:58] VITALS: BP 123/63; PULSE 64; RESP 18; TEMP 36.8; O2SAT 91
--- NOTE | 2023-03-21 14:57 | PC.NURSE ---
pt continues to sleep, arousable to verbal stimuli but quickly falls back asleep, not safe at this time to administer PO 1500 medications.
--- NOTE | 2023-03-21 16:22 | PC.NURSE ---
pt pulling on texas catheter, removed it. pt irritable, requesting what happened to him , drowsy during conversations, easily falling back asleep. pt reprots discomfort to his back.coccyx - repositioned to his right side, two pillows placed behind his back. pt not allowing of this RN and LEATHER STAKER to replace his texas cath at this time
[2023-03-21 16:31] LABS: Glucose, Whole Blood 104 mg/dL (60-115)
--- NOTE | 2023-03-21 17:07 | PC.NURSE ---
pt incontinent of urine since pulling off texas cath, allowed this RN and QUALITY COMPLIANCE COORDINATOR to change linens, skin cleaned, dry now and intect - replaced texas cath with kaur bag at this time. pt refusing dinner.
[2023-03-21 20:08] VITALS: BP 140/65; PULSE 76; RESP 16; TEMP 36.8; O2SAT 97
[2023-03-21 20:18] LABS: Glucose, Whole Blood 84 mg/dL (60-115)
--- NOTE | 2023-03-21 20:20 | PC.NURSE ---
Pt sleeping at the bedside. Awaken as BS is 84 and pt did not eat through out the day. Food and liquid provided. Pt ate well with assistance. Video camera at the bedside. Pt is able to make needs known. Pt voided in the urinal with assistance. Monitoring is ongoing.
[2023-03-21] MEDS: QUEtiapine Fumarate 50 MG TABLET PO (21:07)
[2023-03-21] MEDS: Sennosides 8.6 MG TABLET 17.2 MG PO (21:07)
[2023-03-21] MEDS: carvediloL 3.125 MG TABLET PO (21:07)
[2023-03-21] MEDS: Atorvastatin Calcium 80 MG TABLET PO (21:07)
[2023-03-21] MEDS: traZODone HCL 50 MG TABLET PO (21:07)
[2023-03-21] MEDS: Docusate Sodium 100 MG CAPSULE PO (21:07)
[2023-03-21] MEDS: Gabapentin 300 MG CAPSULE PO (21:07)
--- NOTE | 2023-03-21 21:10 | PC.NURSE ---
Pt calm and cooperative resting at the bedside. Medicated as per APR. Pt tolerated well.
[2023-03-22 05:42] VITALS: BP 133/66; PULSE 62; RESP 16; TEMP 36.5; O2SAT 95
--- NOTE | 2023-03-22 05:43 | MHC.EDTECH ---
Patient was inconient of small amount of stool snd urine ,care given and bedding change ,vitals taken ,pt drank 240 ml orange juice during the night .
--- NOTE | 2023-03-22 06:10 | PC.NURSE ---
Pt. did well overnight. Slept through most of night. One episode of incontinence of both stool and urine, able to change patient with no irritation/behaviors. Pt. cooperative, in NAD and turning appropriately and asking for food and juice.
[2023-03-22 07:20] LABS: Glucose, Whole Blood 101 mg/dL (60-115)
[2023-03-22] MEDS: Furosemide 40 MG TABLET PO (07:48)
[2023-03-22] MEDS: Folic Acid 1 MG TABLET PO (07:48)
[2023-03-22] MEDS: QUEtiapine Fumarate 50 MG TABLET PO ×3 (07:48→20:27)
[2023-03-22] MEDS: Sertraline HCL 100 MG TABLET PO (07:49)
[2023-03-22] MEDS: Lactulose 20 GM/30 ML SOLUTION 10 GM PO (07:49)
[2023-03-22] MEDS: Aspirin Enteric Coated 81 MG TABLET.DR PO (07:49)
[2023-03-22] MEDS: Docusate Sodium 100 MG CAPSULE PO ×2 (07:49→20:27)
[2023-03-22] MEDS: carvediloL 3.125 MG TABLET PO ×2 (07:49→20:26)
[2023-03-22] MEDS: Clopidogrel Bisulfate 75 MG TABLET PO (07:49)
[2023-03-22] MEDS: metFORMIN HCl ER 500 MG TAB.ER.24H PO (07:49)
[2023-03-22] MEDS: Gabapentin 300 MG CAPSULE PO ×3 (07:49→20:26)
[2023-03-22] MEDS: Fluticasone/Umeclidinium/Vilanterol 200/62.5/25 BLST.W.DEV 1 PUFF INHALE (07:50)
[2023-03-22] MEDS: polyethylene glycoL 3350 17 GM POWD.PACK PO (07:50)
--- NOTE | 2023-03-22 08:21 | MHC.CM.ED ---
Addendum entered by Alfreda Encinas 03/22/23 14:42: Deirdre made aware via telephone. Addendum entered by Alfreda Encinas 03/22/23 13:54: Patient's sig other, Isabell, at bedside. Updated that 150 referrals were made in the [facility]. The following facilities are reviewing: [facility], [facility]. and [facility]. Antonella Still waiting to hear from: Antonella [facility], [facility], [facility], [facility], [facility], [facility], [facility], [facility], [facility], [facility], [facility], and [facility]. Original Note: Patient remains in ER overflow. Clinical updates sent to facilities still following or that haven't responded in [facility]. Continue to monitor for d/c needs.
[2023-03-22 11:17] LABS: Glucose, Whole Blood 167 mg/dL (60-115)
--- NOTE | 2023-03-22 11:35 | MHC.EDTECH ---
patient was washed up with complete bed change
--- NOTE | 2023-03-22 11:46 | MHC.EDTECH ---
patient was assisted with teeth brushing
[2023-03-22 13:02] LABS: Estimated Glomerular Filt Rate 44
[2023-03-22 14:00] VITALS: BP 125/63; PULSE 65; RESP 22; TEMP 36.4; O2SAT 95
--- NOTE | 2023-03-22 14:36 | PC.NURSE ---
Pt washed up and was assisted with lunch by WATERFRONT DIRECTOR. Pt's at his bedside, pt resting quietly at this time.
[2023-03-22 16:54] LABS: Glucose, Whole Blood 103 mg/dL (60-115)
[2023-03-22 20:10] LABS: Glucose, Whole Blood 106 mg/dL (60-115)
[2023-03-22 20:17] VITALS: BP 141/61; PULSE 59; RESP 20; TEMP 36.7; O2SAT 93
[2023-03-22] MEDS: Sennosides 8.6 MG TABLET 17.2 MG PO (20:26)
[2023-03-22] MEDS: Atorvastatin Calcium 80 MG TABLET PO (20:26)
[2023-03-22] MEDS: traZODone HCL 50 MG TABLET PO (20:27)
--- NOTE | 2023-03-22 23:27 | PC.NURSE ---
Patient reports sore discomfort in buttocks, repositioned to left side, head of the bed elevated. Video monitor at bedside.
--- NOTE | 2023-03-23 00:55 | PC.NURSE ---
Patient awake, requested a snack, provided with turkey sandwich and diet kirill brian, tolerated well. Patient repositioned to right side, head of the bed elevated, call gamboa in reach.
[2023-03-23 05:29] VITALS: BP 131/59; PULSE 56; RESP 19; TEMP 36.2; O2SAT 92
--- NOTE | 2023-03-23 05:41 | PC.NURSE ---
Patient noted to be incontinent of urine, enedelia care provided, patient transferred from a hospital into bariatric bed to promote comfort. Patient denies any pain at present, resting with his eye closed, RR 18, kareem in distress, call gamboa within patient's reach, video monitor in place.
[2023-03-23 07:21] LABS: Glucose, Whole Blood 99 mg/dL (60-115)
[2023-03-23 08:06] VITALS: BP 110/52; PULSE 58; RESP 16; TEMP 36; O2SAT 92
[2023-03-23] MEDS: Lactulose 20 GM/30 ML SOLUTION 10 GM PO (10:01)
[2023-03-23] MEDS: polyethylene glycoL 3350 17 GM POWD.PACK PO (10:01)
[2023-03-23] MEDS: carvediloL 3.125 MG TABLET PO ×2 (10:02→22:09)
[2023-03-23] MEDS: Folic Acid 1 MG TABLET PO (10:02)
[2023-03-23] MEDS: Docusate Sodium 100 MG CAPSULE PO ×2 (10:02→22:10)
[2023-03-23] MEDS: Gabapentin 300 MG CAPSULE PO ×3 (10:03→22:10)
[2023-03-23] MEDS: Aspirin Enteric Coated 81 MG TABLET.DR PO (10:03)
[2023-03-23] MEDS: Furosemide 40 MG TABLET PO (10:03)
[2023-03-23] MEDS: Sertraline HCL 100 MG TABLET PO (10:03)
[2023-03-23] MEDS: Clopidogrel Bisulfate 75 MG TABLET PO (10:03)
[2023-03-23] MEDS: metFORMIN HCl ER 500 MG TAB.ER.24H PO (10:03)
[2023-03-23] MEDS: QUEtiapine Fumarate 50 MG TABLET PO ×3 (10:04→22:10)
--- NOTE | 2023-03-23 10:30 | PC.NURSE ---
Meds given as documented, pt was assisted with eating breakfast, he was changed and repositioned. Resting quietly, he denies pain, vss. no complaints.
[2023-03-23 11:14] LABS: Glucose, Whole Blood 129 mg/dL (60-115)
[2023-03-23 14:00] VITALS: BP 135/74; PULSE 58; RESP 12; TEMP 36.9; O2SAT 92
[2023-03-23] MEDS: Acetaminophen 325 MG TABLET 975 MG PO ×2 (15:25→22:10)
[2023-03-23 16:12] LABS: Glucose, Whole Blood 114 mg/dL (60-115)
[2023-03-23 20:40] LABS: Glucose, Whole Blood 113 mg/dL (60-115)
[2023-03-23 21:10] VITALS: BP 125/61; PULSE 58; RESP 17; TEMP 36.5; O2SAT 92
[2023-03-23] MEDS: Sennosides 8.6 MG TABLET 17.2 MG PO (22:09)
--- NOTE | 2023-03-23 22:09 | MHC.EDTECH ---
changed pts bed waiting for section supervisor to bring [place]enn[place] catheter to put back on
[2023-03-23] MEDS: traZODone HCL 50 MG TABLET PO (22:10)
[2023-03-23] MEDS: Atorvastatin Calcium 80 MG TABLET PO (22:10)
--- NOTE | 2023-03-24 01:35 | PC.NURSE ---
Took report from off-going RN at 2300 hours. Pt is a 72 y/o male who came in on a section 12 for increased aggressive behavior, here since 03/15 from a detention. Pt is A & O X 4, pleasant and cooperative with staff. 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 Needs assistance with feeding. Takes pills ok with applesauce/pudding. POC at 2100 hours was 113. Pt is incontinent of urine. Plan: pt is awaiting placement, sending facility will not take pt back. Verbalizes needs appropriately. Will continue to monitor.
--- NOTE | 2023-03-24 01:45 | PC.NURSE ---
Took report from off-going RN at 2300 hours. Pt is a 66 y/o female who came here from home on Mar 16. CC on arrival was increased agression/agitation, increased confusion, and hallucinations. Pt is A & O X 1, history or dementia. is the decision-maker. Independent with meals, takes pills whole ok with water. Pt is calm and cooperative, verbalizes needs appropriately. No acute distress observed and skin is W/P/D. Independent with ambulation, but pt is an elopement risk. Plan is possible discharge to long-term care facility. Will continue to monitor.
--- NOTE | 2023-03-24 02:55 | PC.NURSE ---
Pt is sleeping, appears to be comfortable. Changes positions in bed with minimal assistance. Pt is arousable with verbal stimuli. TV is on per pt request. Pt verbalizes needs appropriately. Pt is awaiting placement. Will continue to monitor.
--- NOTE | 2023-03-24 05:02 | PC.NURSE ---
Pt is sleeping, appears comfortable. Was restless earlier and found diagonal in bed multiple times and was repositioned. Pt has a camera at the bedside. No acute distress noted. RR is regular rate and pattern. Will continue to monitor.
[2023-03-24 06:00] VITALS: BP 132/59; PULSE 55; RESP 18; TEMP 36.6; O2SAT 92
[2023-03-24 07:29] LABS: Glucose, Whole Blood 87 mg/dL (60-115)
[2023-03-24] MEDS: Lactulose 20 GM/30 ML SOLUTION 10 GM PO (08:20)
[2023-03-24] MEDS: polyethylene glycoL 3350 17 GM POWD.PACK PO (08:20)
[2023-03-24] MEDS: Docusate Sodium 100 MG CAPSULE PO (08:21)
[2023-03-24] MEDS: Acetaminophen 325 MG TABLET 975 MG PO ×3 (08:21→21:34)
[2023-03-24] MEDS: Gabapentin 300 MG CAPSULE PO ×3 (08:21→21:34)
[2023-03-24] MEDS: QUEtiapine Fumarate 50 MG TABLET PO ×3 (08:21→21:34)
[2023-03-24] MEDS: metFORMIN HCl ER 500 MG TAB.ER.24H PO (08:21)
[2023-03-24] MEDS: Folic Acid 1 MG TABLET PO (08:21)
[2023-03-24] MEDS: Aspirin Enteric Coated 81 MG TABLET.DR PO (08:21)
[2023-03-24] MEDS: Furosemide 40 MG TABLET PO (08:21)
[2023-03-24] MEDS: Sertraline HCL 100 MG TABLET PO (08:21)
[2023-03-24] MEDS: Clopidogrel Bisulfate 75 MG TABLET PO (08:21)
--- NOTE | 2023-03-24 11:46 | MHC.CM.ED ---
Addendum entered by Alfreda Encinas 03/24/23 12:42: Deirdre updated via telephone. Isabell updated via telephone. Both want patient to be placed for STR. T/W reiterated 4 facilities closed locally and bed offers have not been made if facility does not feel patient is 100% STR. Both verbalized understanding. Original Note: Patient remains in ER overflow. [facility], [facility], [facility], [facility] and [facility] are not able to offer a bed. Reached out to facilities that are still reviewing: [facility], [facility] and [facility]. Also reached out to facilities that haven't responded in [facility]: [facility]ella [facility], [facility], [facility], [facility], [facility], [facility], [facility], and [facility]. Continue to monitor for d/c needs.
[2023-03-24 12:19] LABS: Glucose, Whole Blood 146 mg/dL (60-115)
[2023-03-24 13:51] VITALS: BP 110/55; PULSE 61; RESP 20; TEMP 36.4; O2SAT 95
--- NOTE | 2023-03-24 18:59 | PC.NURSE ---
Patient incontinent of a large amount of soft stool. Patient given enedelia-care and new sheets.
[2023-03-24 20:16] LABS: Glucose, Whole Blood 118 mg/dL (60-115)
[2023-03-24 21:32] VITALS: BP 120/62; PULSE 83; RESP 20; TEMP 36.4; O2SAT 95
[2023-03-24] MEDS: traZODone HCL 50 MG TABLET PO (21:34)
[2023-03-24] MEDS: carvediloL 3.125 MG TABLET PO (21:34)
[2023-03-24] MEDS: Atorvastatin Calcium 80 MG TABLET PO (21:34)
[2023-03-25 05:27] VITALS: BP 140/60; PULSE 61; RESP 16; TEMP 36.3; O2SAT 93
--- NOTE | 2023-03-25 05:53 | MHC.EDTECH ---
This tech and sql tech Nicole did full bedding change on Pt due to being incontinent of urine. Pt cleaned up, new hospital gown put on, repositioned. Call gamboa within reach.
[2023-03-25 06:15] LABS: Glucose, Whole Blood 95 mg/dL (60-115)
[2023-03-25] MEDS: Fluticasone/Umeclidinium/Vilanterol 200/62.5/25 BLST.W.DEV 1 PUFF INHALE (08:03)
[2023-03-25 08:04] VITALS: PULSE 58; RESP 18; O2SAT 91
[2023-03-25] MEDS: Clopidogrel Bisulfate 75 MG TABLET PO (09:14)
[2023-03-25] MEDS: Aspirin Enteric Coated 81 MG TABLET.DR PO (09:14)
[2023-03-25] MEDS: Folic Acid 1 MG TABLET PO (09:14)
[2023-03-25] MEDS: QUEtiapine Fumarate 50 MG TABLET PO ×3 (09:15→20:14)
[2023-03-25] MEDS: Furosemide 40 MG TABLET PO (09:15)
[2023-03-25] MEDS: Sertraline HCL 100 MG TABLET PO (09:15)
[2023-03-25] MEDS: Gabapentin 300 MG CAPSULE PO ×3 (09:15→20:16)
[2023-03-25] MEDS: metFORMIN HCl ER 500 MG TAB.ER.24H PO (09:15)
[2023-03-25] MEDS: carvediloL 3.125 MG TABLET PO ×2 (09:15→20:15)
--- NOTE | 2023-03-25 09:37 | MHC.CM.ED ---
Patient remains in ER overflow. Received telephone call from Dione of [facility]. She can be reached via telephone at [phone]. Dione spoke with Deirdre via telephone. Patient's sig other, Isabell was being paid to provide adult foster care prior to patient going to [facility]. Patient will not be able to receive PUBLIC IMPROVEMENT INSPECTOR hours since adult foster care was being provided. Dione also explained to Deirdre that patient returning home would be an unrealistic expectation. Still waiting to hear from 9 other facilities to see if they are able to offer a bed. Continue to monitor for d/c needs.
[2023-03-25 11:36] LABS: Glucose, Whole Blood 154 mg/dL (60-115)
[2023-03-25 14:00] VITALS: BP 155/69; PULSE 68; RESP 20; TEMP 36.6; O2SAT 95
[2023-03-25] MEDS: Acetaminophen 325 MG TABLET 975 MG PO ×2 (15:21→20:16)
[2023-03-25 16:20] LABS: Glucose, Whole Blood 120 mg/dL (60-115)
--- NOTE | 2023-03-25 16:56 | PC.NURSE ---
assumed care of pt at 1555, on arrival to unit pt attempting to get out of bed, agitated, combative, striking out at staff w arms and legs. pt phone thrown across overflow nursing station. placed into bag to keep at nursing station while not in use. pt assisted back into bed, security at bedside, ED provider aware, medication ordered. pt calmed w security presence and repositioned back into bed, agreeable to relax in bed until dinner. pt positioned up in bed and eating dinner. daughter at bedside.
[2023-03-25] MEDS: traZODone HCL 50 MG TABLET PO (20:13)
[2023-03-25] MEDS: Sennosides 8.6 MG TABLET 17.2 MG PO (20:13)
[2023-03-25] MEDS: Atorvastatin Calcium 80 MG TABLET PO (20:14)
[2023-03-25] MEDS: Docusate Sodium 100 MG CAPSULE PO (20:14)
[2023-03-25 20:36] LABS: Glucose, Whole Blood 123 mg/dL (60-115)
--- NOTE | 2023-03-25 21:29 | PC.NURSE ---
pt threw himself out of bed into standing position, cont'd agitation/combative w staff trying to get pt back into bed. security at bedside. pt incontinent of stool, pt cleaned and repositioned back into bed, linens changed. pt resting w lights dimmed.
[2023-03-26 00:26] VITALS: RESP 14
[2023-03-26] MEDS: Acetaminophen 325 MG TABLET 975 MG PO (05:03)
[2023-03-26 05:05] VITALS: BP 106/60; PULSE 75; RESP 16; O2SAT 93
--- NOTE | 2023-03-26 05:13 | PC.NURSE ---
Pt calm and cooperative resting at the bedside. Reports pain to the right hip, 5/10. Medicated with Tylenol per MD. Pt tolerated well. Video camera and 1:1 sitter at bedside. Bed alarm on. Monitoring is ongoing.
--- NOTE | 2023-03-26 09:02 | MHC.EDTECH ---
patient refused POC to be taken, this tech asked twice, once with no response and second time a refusal
--- NOTE | 2023-03-26 09:33 | PC.NURSE ---
RN at bedside to attempt to give AM medications, pt ignoring this RN. Will retry when patient is cooperative.
--- NOTE | 2023-03-26 10:57 | PC.NURSE ---
Pt continues refusing meds, food and vitals.
--- NOTE | 2023-03-26 13:39 | PC.NURSE ---
Pt continues refusing meds, VS and POC glucose check.
--- NOTE | 2023-03-26 15:01 | PC.NURSE ---
Pt incontinent of urine, was initially refusing to get cleaned up - pt assisted with cleans linens, enedelia care and new sheets. Pt swearing at staff the entire time but did not attempt to hit staff.
--- NOTE | 2023-03-26 16:09 | PC.NURSE ---
Pt enters my care- pt refusing all medications- I just want to go home you guys are doing nothing for me attempted to VS patient refused
[2023-03-26 18:22] VITALS: BP 131/71; PULSE 78; RESP 15; TEMP 36.6; O2SAT 95
--- NOTE | 2023-03-26 18:24 | PC.NURSE ---
pt minimally helpful with full bed change for soaking matress and puddle of uurine on floor. cleansed. no breakdown. pt able to roll back and forth. feeding himself
[2023-03-26 19:13] LABS: Glucose, Whole Blood 93 mg/dL (60-115)
[2023-03-27 03:07] VITALS: BP 124/68; PULSE 76; RESP 16; TEMP 36.7; O2SAT 96
[2023-03-27 08:06] VITALS: PULSE 54; RESP 18; O2SAT 92
[2023-03-27] MEDS: Fluticasone/Umeclidinium/Vilanterol 200/62.5/25 BLST.W.DEV 1 PUFF INHALE (08:06)
[2023-03-27 09:08] VITALS: BP 107/57; PULSE 64; RESP 20; O2SAT 92
[2023-03-27] MEDS: Folic Acid 1 MG TABLET PO (09:10)
[2023-03-27] MEDS: Clopidogrel Bisulfate 75 MG TABLET PO (09:10)
[2023-03-27] MEDS: Sertraline HCL 100 MG TABLET PO (09:10)
[2023-03-27] MEDS: carvediloL 3.125 MG TABLET PO ×2 (09:10→23:36)
[2023-03-27] MEDS: QUEtiapine Fumarate 50 MG TABLET PO ×3 (09:11→23:37)
[2023-03-27] MEDS: Gabapentin 300 MG CAPSULE PO ×3 (09:11→23:37)
[2023-03-27] MEDS: Docusate Sodium 100 MG CAPSULE PO ×2 (09:12→23:38)
[2023-03-27] MEDS: metFORMIN HCl ER 500 MG TAB.ER.24H PO (09:13)
[2023-03-27] MEDS: Acetaminophen 325 MG TABLET 975 MG PO ×3 (09:14→23:37)
[2023-03-27] MEDS: Aspirin Enteric Coated 81 MG TABLET.DR PO (09:15)
[2023-03-27] MEDS: Furosemide 40 MG TABLET PO (09:24)
--- NOTE | 2023-03-27 09:44 | MHC.EDTECH ---
patient refused POC this morning. RN aware
--- NOTE | 2023-03-27 09:45 | PC.NURSE ---
Resumed care of patient, he is currently sleeping in bed. All needs met at this time.
--- NOTE | 2023-03-27 11:07 | PC.NURSE ---
Addendum entered by Alejandrina Kay 03/27/23 11:39: spoke w daughter, updated w plan of care, pt cleaned and repositioned back into bed by another RN and tech. daughter remains at bedside. Original Note: assumed care of pt at 1100, pt resting quietly in bed, camera at bedside.
[2023-03-27 16:27] VITALS: BP 122/55; PULSE 62; RESP 18; TEMP 36.8; O2SAT 97
--- NOTE | 2023-03-27 16:43 | PC.NURSE ---
pt declined 1130 POC, medicated per MAR - meds taken whole w pudding, vss. pt assisted w adjusting bed and elevating feet - pads clean and dry.
[2023-03-27 18:48] LABS: Glucose, Whole Blood 104 mg/dL (60-115)
[2023-03-27 20:32] LABS: Glucose, Whole Blood 90 mg/dL (60-115)
--- NOTE | 2023-03-27 20:50 | PC.NURSE ---
PT sitting up eating sandwich. Offers no complaints at this time.
--- NOTE | 2023-03-27 23:21 | PC.NURSE ---
PT refused scheduled eveinng medicatoin
[2023-03-27] MEDS: Sennosides 8.6 MG TABLET 17.2 MG PO (23:36)
[2023-03-27] MEDS: traZODone HCL 50 MG TABLET PO (23:37)
[2023-03-27] MEDS: Atorvastatin Calcium 80 MG TABLET PO (23:37)
[2023-03-27 23:42] VITALS: BP 119/51; RESP 16; TEMP 37.1; O2SAT 97
--- NOTE | 2023-03-28 00:07 | PC.NURSE ---
At 23:30 pt changed his mind and requested his scheduled evening medications.
--- NOTE | 2023-03-28 01:21 | PC.NURSE ---
PT incontinent of urine, pt cleaned up, repositioned and all linens changed. Does not offer any complaints at this time.
[2023-03-28] MEDS: Fluticasone/Umeclidinium/Vilanterol 200/62.5/25 BLST.W.DEV 1 PUFF INHALE (08:15)
[2023-03-28 08:16] VITALS: PULSE 57; RESP 16; O2SAT 97
[2023-03-28] MEDS: QUEtiapine Fumarate 50 MG TABLET PO ×3 (08:23→20:15)
[2023-03-28] MEDS: Docusate Sodium 100 MG CAPSULE PO ×2 (08:23→20:15)
[2023-03-28] MEDS: Aspirin Enteric Coated 81 MG TABLET.DR PO (08:23)
[2023-03-28] MEDS: Clopidogrel Bisulfate 75 MG TABLET PO (08:23)
[2023-03-28] MEDS: Sertraline HCL 100 MG TABLET PO (08:23)
[2023-03-28] MEDS: Furosemide 40 MG TABLET PO (08:23)
[2023-03-28] MEDS: metFORMIN HCl ER 500 MG TAB.ER.24H PO (08:23)
[2023-03-28] MEDS: Gabapentin 300 MG CAPSULE PO ×3 (08:23→20:15)
[2023-03-28] MEDS: Acetaminophen 325 MG TABLET 975 MG PO ×2 (08:24→20:15)
[2023-03-28] MEDS: Folic Acid 1 MG TABLET PO (08:28)
[2023-03-28 08:34] VITALS: BP 109/33; PULSE 49; RESP 19; O2SAT 98
--- NOTE | 2023-03-28 08:59 | PC.NURSE ---
Assumed care of this pt at 0900. Pt was assisted with breakfast, morning meds given by previous nurse. Pt laying quietly in bed at this time. Belongings and call bed in close reach. Video monitor on.
[2023-03-28 10:37] VITALS: BP 115/62; PULSE 52; RESP 16; O2SAT 96
[2023-03-28 13:04] LABS: Glucose, Whole Blood 118 mg/dL (60-115)
--- NOTE | 2023-03-28 13:05 | PC.NURSE ---
Pt was assisted with boosting himself up in bed using the orthopedic lift bar that is attached to the bed. Pt resting quietly in bed, his is at his bedside.
--- NOTE | 2023-03-28 15:18 | PC.NURSE ---
Pt repositioned, meds given as documented, He refused Tylenol.
--- NOTE | 2023-03-28 19:05 | PC.NURSE ---
Assumed care of pt. Pt lying on hospital bed, denies acute distress at this time. Requested compression boots for pt per inpt protocols for DVT prevention. Also has 2100 medications ordered. No acute distress at this time, WCTM.
[2023-03-28 19:32] LABS: Glucose, Whole Blood 109 mg/dL (60-115)
[2023-03-28 19:43] VITALS: BP 113/62; PULSE 51; RESP 20; O2SAT 97
--- NOTE | 2023-03-28 19:47 | MHC.EDTECH ---
I was able to do patient's POC, Vitals, pads changed and patient was cleaned VM. Asked for orange juice and toasts.
[2023-03-28] MEDS: Enoxaparin Sodium 40 MG/0.4 ML SYRINGE SUBCUT (20:15)
[2023-03-28] MEDS: Sennosides 8.6 MG TABLET 17.2 MG PO (20:15)
[2023-03-28] MEDS: Atorvastatin Calcium 80 MG TABLET PO (20:15)
[2023-03-28] MEDS: traZODone HCL 50 MG TABLET PO (20:15)
[2023-03-28] MEDS: carvediloL 3.125 MG TABLET PO (20:15)
--- NOTE | 2023-03-28 20:51 | PC.NURSE ---
pt bedding changed, pt repositioned.
[2023-03-29 01:13] VITALS: BP 126/63; PULSE 53; RESP 16; TEMP 36.4; O2SAT 100
--- NOTE | 2023-03-29 01:25 | MHC.EDTECH ---
This Pct assumed care of 0100 ,Pt vitals taken ,blood sugar check ,RN Nunu aware of result of 99 ,Patient asleep and is dry ,Call gamboa within Pt reach .
[2023-03-29 01:32] LABS: Glucose, Whole Blood 99 mg/dL (60-115)
--- NOTE | 2023-03-29 04:27 | MHC.EDTECH ---
Patient awake ,and asked for a drink ,Patient was assisted to drink 240 ml juice ,Patient continue to be dry .
[2023-03-29 05:15] VITALS: BP 119/56; PULSE 56; RESP 15; TEMP 36.3; O2SAT 100
--- NOTE | 2023-03-29 05:16 | MHC.EDTECH ---
Patient awake ,had a small bowel movement ,care given and bed pad change ,Pt drank 240 ml juice ,vitals taken and Patient was position on his side with Pillows ,This pct notice that Patient had not void since this policy writer sales assumed care tonight ,This pct spoke to SREE Nunes about patient not voiding ,Bladder scan done ,And Patient had 721 ml in his bladder ,SREE Nunes aware .
--- NOTE | 2023-03-29 05:38 | PC.NURSE ---
Addendum entered by Manju Lopez 03/29/23 05:42: MD notified of urinary retention. No new orders at this time. Continue to monitor. Original Note: Pt rolled onto right side, propped up with pillows. Pt incontinent of a small amount of stool, provided enedelia care and repositioned. Per EDT, pt has not voided throughout the night and is known to be incontinent. Bladder scan showing 721 ml of urine within bladder. Pt denies pain/discomfort/urge to void. Pt given juice/water. Will continue to monitor void status.
--- NOTE | 2023-03-29 05:56 | MHC.EDTECH ---
Patient drank 1 can of kirill brian and 1 cup of cranberry juice .
--- NOTE | 2023-03-29 07:41 | PC.RT ---
RT NOTE: Pt does not have appropriate inspiratory force to perform inhaler.
[2023-03-29 07:42] LABS: Glucose, Whole Blood 113 mg/dL (60-115)
--- NOTE | 2023-03-29 07:57 | PC.NURSE ---
urinal placed twice and patient is unable to urinate. Dr Bautista and Sallie PYLE are aware and patient is refusing to have a kaur cath placed due to high retention of urine per shift coordinator and RN.
[2023-03-29] MEDS: carvediloL 3.125 MG TABLET PO (08:33)
[2023-03-29] MEDS: Acetaminophen 325 MG TABLET 975 MG PO ×2 (08:33→16:20)
[2023-03-29] MEDS: Gabapentin 300 MG CAPSULE PO ×2 (08:33→16:21)
[2023-03-29] MEDS: Folic Acid 1 MG TABLET PO (08:33)
[2023-03-29] MEDS: Clopidogrel Bisulfate 75 MG TABLET PO (08:33)
[2023-03-29] MEDS: Furosemide 40 MG TABLET PO (08:33)
[2023-03-29] MEDS: Aspirin Enteric Coated 81 MG TABLET.DR PO (08:34)
[2023-03-29] MEDS: QUEtiapine Fumarate 50 MG TABLET PO ×2 (08:34→16:21)
[2023-03-29] MEDS: Docusate Sodium 100 MG CAPSULE PO ×2 (08:34→23:32)
[2023-03-29] MEDS: metFORMIN HCl ER 500 MG TAB.ER.24H PO (08:34)
[2023-03-29] MEDS: Lactulose 20 GM/30 ML SOLUTION 10 GM PO (08:34)
[2023-03-29] MEDS: polyethylene glycoL 3350 17 GM POWD.PACK PO (08:35)
[2023-03-29] MEDS: Sertraline HCL 100 MG TABLET PO (08:38)
[2023-03-29 09:37] LABS: Creatinine Clr Calc Pharmacy 76.4; Estimated Glomerular Filt Rate 48
--- NOTE | 2023-03-29 11:57 | PC.NURSE ---
per my anesthesiology tech the patient has been incontinent a large amount of urine this morning, still refusing kaur.
[2023-03-29 12:56] LABS: Glucose, Whole Blood 104 mg/dL (60-115)
--- NOTE | 2023-03-29 14:04 | MHC.CM.ED ---
Patient remains in ER. No bed offers at this time. Waiting to hear from [facility]. [facility] at [facility] Clinical updates sent to her. Continue to monitor for d/c needs.
[2023-03-29 14:51] VITALS: BP 109/52; PULSE 50; RESP 16; O2SAT 96
[2023-03-29 17:40] LABS: Glucose, Whole Blood 123 mg/dL (60-115)
--- NOTE | 2023-03-29 18:37 | MHC.CM.ED ---
Daughter, Brenda present at bedside and requesting an update. CM explained that [facility] is following, but they do not have any beds. [facility] following and updates sent by previous CM. Also waiting on [facility]. Pt did not particpate x2 in PT and PT is recommending LTC. Daughter is fixed on her father getting rehab and feels then he can come home. Daughter aware that once accepted at a facility, they will assess how he is doing. Daughter is not accepting of the fact that her father needs LTC and that PT has recommended LTC. She just keeps saying that he needs more time to get better. Daughter asked if CM has placed local referrals. Again CM reviewed all the facilities that were referred to (150 statewide) and that re-referrals were placed on Wednesday. Explained that CM always refers locally first. Explained that there are few beds open for his care. Pt is taking his meds and is eating his sandwich independently, if handed his food. CM will follow for discharge planning.
[2023-03-29 22:00] VITALS: BP 108/50; PULSE 52; RESP 20; TEMP 36.4; O2SAT 94
[2023-03-29 23:27] VITALS: BP 117/49; PULSE 54; RESP 18; O2SAT 96
[2023-03-29] MEDS: Enoxaparin Sodium 40 MG/0.4 ML SYRINGE SUBCUT (23:31)
[2023-03-29] MEDS: traZODone HCL 50 MG TABLET PO (23:32)
--- NOTE | 2023-03-29 23:40 | MHC.EDTECH ---
Bladder scan 514 mL @2340
[2023-03-30 00:29] LABS: Glucose, Whole Blood 90 mg/dL (60-115)
--- NOTE | 2023-03-30 05:50 | PC.NURSE ---
Late entry: PT had BM and large amount of urine output. PT cleaned and repositioned for comfort. PT refused most medications stated take me to pill court . Call gamboa within reach. Plan of care ongoing.
[2023-03-30 06:00] VITALS: BP 123/58; PULSE 60; RESP 16; TEMP 36.3; O2SAT 95
[2023-03-30 07:27] LABS: Glucose, Whole Blood 99 mg/dL (60-115)
[2023-03-30 11:50] LABS: Glucose, Whole Blood 87 mg/dL (60-115)
[2023-03-30] MEDS: Gabapentin 300 MG CAPSULE PO ×3 (12:42→21:23)
[2023-03-30] MEDS: Aspirin Enteric Coated 81 MG TABLET.DR PO (12:42)
[2023-03-30] MEDS: QUEtiapine Fumarate 50 MG TABLET PO ×3 (12:42→21:23)
[2023-03-30] MEDS: Sertraline HCL 100 MG TABLET PO (12:42)
[2023-03-30] MEDS: carvediloL 3.125 MG TABLET PO ×2 (12:42→21:23)
[2023-03-30] MEDS: Acetaminophen 325 MG TABLET 975 MG PO ×2 (12:42→21:23)
[2023-03-30] MEDS: Clopidogrel Bisulfate 75 MG TABLET PO (12:42)
[2023-03-30] MEDS: Furosemide 40 MG TABLET PO (12:43)
[2023-03-30] MEDS: metFORMIN HCl ER 500 MG TAB.ER.24H PO (12:43)
[2023-03-30] MEDS: Folic Acid 1 MG TABLET PO (12:43)
--- NOTE | 2023-03-30 13:13 | PC.NURSE ---
pt incontinent of stool, cleaned, linens changed and blanket provided. medicated per apr. t/w repositioned pt in bed, sitting up at this time. reports he feels a little down today. pleasant and cooperative. camera system remains at bedside.
--- NOTE | 2023-03-30 14:19 | MHC.CM.ED ---
Patient remains in ER. Clinical updates sent to facilities that we are still waiting for responses from: [facility], [facility], [facility], [facility], [facility], [facility], [facility], [facility]. All [place] facilities have declined patient at this time. Continue to monitor for d/c needs.
[2023-03-30 17:42] VITALS: BP 116/56; PULSE 58; RESP 16; O2SAT 96
[2023-03-30] MEDS: Enoxaparin Sodium 40 MG/0.4 ML SYRINGE SUBCUT (21:22)
[2023-03-30] MEDS: traZODone HCL 50 MG TABLET PO (21:23)
[2023-03-30] MEDS: Atorvastatin Calcium 80 MG TABLET PO (21:23)
[2023-03-30] MEDS: Docusate Sodium 100 MG CAPSULE PO (21:23)
[2023-03-30] MEDS: Sennosides 8.6 MG TABLET 17.2 MG PO (21:23)
--- NOTE | 2023-03-30 21:31 | PC.NURSE ---
Pt calm and cooperative, resting at the bedside. Mediated as ordered. Pt tolerated well.
[2023-03-30 21:33] VITALS: BP 110/50; PULSE 54; RESP 16; O2SAT 98
[2023-03-30 21:43] LABS: Glucose, Whole Blood 111 mg/dL (60-115)
--- NOTE | 2023-03-30 22:19 | PC.NURSE ---
Pt currently eating at the bedside with 1:1 feed. Eating and tolerating well.
[2023-03-31 06:13] VITALS: BP 135/66; PULSE 60; RESP 17; TEMP 36.6; O2SAT 97
--- NOTE | 2023-03-31 06:15 | MHC.EDTECH ---
This Tech and SREE Mcarthur changed pt into a clean hospital gown and placed clean linen on stretcher
[2023-03-31 07:37] LABS: Glucose, Whole Blood 78 mg/dL (60-115)
--- NOTE | 2023-03-31 08:00 | MHC.EDTECH ---
pt refused breakfast this morning, rn aware
[2023-03-31 08:05] VITALS: BP 139/57; PULSE 62; RESP 12; TEMP 35.8; O2SAT 100
[2023-03-31] MEDS: Fluticasone/Umeclidinium/Vilanterol 200/62.5/25 BLST.W.DEV 1 PUFF INHALE (08:14)
[2023-03-31 08:15] VITALS: PULSE 62; RESP 16; O2SAT 98
--- NOTE | 2023-03-31 08:29 | PC.NURSE ---
patient attempted to exit bed, camera notified staff. patient tsated he wanted to get up because he has a lot to do today, patient redirected that he is still in the emergency dept, patient repositioned in bed, sitting up position with legs down so he feels as if he is sitting in a chair. patient states he is more comfortable sitting that way. patient refused breakfast stating he wants to eat it in a little while, let patient know we can heat up breakfast when he is ready. patient is calm and cooperative, martha gamboa within reach. patient skin dry and intact, linens and pads clean and dry
[2023-03-31] MEDS: metFORMIN HCl ER 500 MG TAB.ER.24H PO (08:50)
[2023-03-31] MEDS: carvediloL 3.125 MG TABLET PO ×2 (08:50→20:15)
[2023-03-31] MEDS: QUEtiapine Fumarate 50 MG TABLET PO ×3 (08:51→20:15)
[2023-03-31] MEDS: Gabapentin 300 MG CAPSULE PO ×3 (08:51→20:16)
[2023-03-31] MEDS: Lactulose 20 GM/30 ML SOLUTION 10 GM PO (08:51)
[2023-03-31] MEDS: Docusate Sodium 100 MG CAPSULE PO ×2 (08:51→20:19)
[2023-03-31] MEDS: Aspirin Enteric Coated 81 MG TABLET.DR PO (08:51)
[2023-03-31] MEDS: Folic Acid 1 MG TABLET PO (08:51)
[2023-03-31] MEDS: Furosemide 40 MG TABLET PO (08:51)
[2023-03-31] MEDS: Clopidogrel Bisulfate 75 MG TABLET PO (08:51)
[2023-03-31] MEDS: Acetaminophen 325 MG TABLET 975 MG PO ×3 (08:51→20:17)
[2023-03-31] MEDS: polyethylene glycoL 3350 17 GM POWD.PACK PO (08:52)
[2023-03-31] MEDS: Sertraline HCL 100 MG TABLET PO (09:04)
--- NOTE | 2023-03-31 12:32 | MHC.EDTECH ---
pt was found smeared with stool, pt was enedelia cleaned, blanket given, pt now comfortable in bed
[2023-03-31 13:40] LABS: Glucose, Whole Blood 125 mg/dL (60-115)
--- NOTE | 2023-03-31 13:42 | MHC.EDTECH ---
pt refused lunch, rn aware
[2023-03-31 14:43] VITALS: BP 136/61; PULSE 66; RESP 16; O2SAT 93
--- NOTE | 2023-03-31 14:44 | MHC.EDTECH ---
pt was found incontinent of stool/ pt was enedelia cleaned, blankets given, pt positioned comfortably in bed
[2023-03-31 16:55] LABS: Glucose, Whole Blood 111 mg/dL (60-115)
[2023-03-31 20:12] VITALS: BP 144/78; PULSE 71; RESP 19; O2SAT 93
[2023-03-31] MEDS: traZODone HCL 50 MG TABLET PO (20:15)
[2023-03-31] MEDS: Enoxaparin Sodium 40 MG/0.4 ML SYRINGE SUBCUT (20:15)
[2023-03-31] MEDS: Sennosides 8.6 MG TABLET 17.2 MG PO (20:19)
[2023-03-31] MEDS: Atorvastatin Calcium 80 MG TABLET PO (20:23)
--- NOTE | 2023-04-01 03:23 | PC.NURSE ---
This RN was called to room by EDTA after finding pt on floor when going to check on him. Pt found in sitting position between bed and storage cart in room. Urine noted on floor. Security staff called to bedside to assist with lift, however was unsuccessful due to body habitus and location in room. Pt was assisted to lie down on jaison mat, jaison mat connected to jaison lift and pt was successfully lifted onto baribed. No obvious injuries noted. Provider Zenaida made aware.
[2023-04-01 04:13] VITALS: BP 146/65; PULSE 64; RESP 16; TEMP 36.6; O2SAT 96
[2023-04-01 07:44] VITALS: BP 121/66; PULSE 78; RESP 18; TEMP 37; O2SAT 95
[2023-04-01 07:48] LABS: Glucose, Whole Blood 87 mg/dL (60-115)
[2023-04-01 07:53] VITALS: PULSE 78; RESP 18
[2023-04-01] MEDS: Fluticasone/Umeclidinium/Vilanterol 200/62.5/25 BLST.W.DEV 1 PUFF INHALE (07:53)
[2023-04-01] MEDS: carvediloL 3.125 MG TABLET PO (07:57)
[2023-04-01] MEDS: Clopidogrel Bisulfate 75 MG TABLET PO (07:57)
[2023-04-01] MEDS: Aspirin Enteric Coated 81 MG TABLET.DR PO (07:57)
[2023-04-01] MEDS: Folic Acid 1 MG TABLET PO (07:58)
[2023-04-01] MEDS: Furosemide 40 MG TABLET PO (07:58)
[2023-04-01] MEDS: metFORMIN HCl ER 500 MG TAB.ER.24H PO (07:58)
[2023-04-01] MEDS: QUEtiapine Fumarate 50 MG TABLET PO ×2 (07:58→16:35)
[2023-04-01] MEDS: Gabapentin 300 MG CAPSULE PO ×2 (07:58→16:34)
[2023-04-01] MEDS: Acetaminophen 325 MG TABLET 975 MG PO ×2 (07:59→16:34)
[2023-04-01] MEDS: polyethylene glycoL 3350 17 GM POWD.PACK PO (07:59)
[2023-04-01] MEDS: Docusate Sodium 100 MG CAPSULE PO (07:59)
[2023-04-01] MEDS: Lactulose 20 GM/30 ML SOLUTION 10 GM PO (07:59)
[2023-04-01] MEDS: Sertraline HCL 100 MG TABLET PO (08:02)
--- NOTE | 2023-04-01 11:30 | MHC.CM.ED ---
Addendum entered by Alfreda Encinas 04/01/23 15:31: Asked Surekha from [facility] to re-eval. Left a voicemail for [facility] to see if any of their facilities had a bed to offer patient. Original Note: Patient remains in ER. [facility] does [facility] at this time but is following. Will re-reach out to facilities that haven't responded: [facility], [facility], [facility], [facility], [facility], [facility]. Continue to monitor for d/c needs.
--- NOTE | 2023-04-01 11:31 | PC.NURSE ---
patient had large bowel movement in bed, patient linens changed, new pads, patient cleaned up. patient repositioned in bed. patient seems to be altered, often stating he is on a bus or going somewhere, patient is redirectable and explained to that he is in the emergency dept still. patient calm and cooperative, no signs of distress, tele camera on patient for safety.
--- NOTE | 2023-04-01 11:41 | P.CNPS_ITS ---
History of Present Illness Date of Service: Chief Complaint: FROM SNF,HALLUCINATIONS, HCP GAVE CONSENT, NO SECT Reason for Consult: agitation Sources of Information: patient interviewed, chart reviewed and crisis/core team assessment reviewed HPI Narrative: Interim Hx: pt has continued to present with episodes of increase combative behaviors, declining his medications and requiring IM medications. Pt seen with his . Pt reports I'm fine, I'm fine. He asks why he can't go home. Pt explained that he requiring more care- total care not ambulating than the one his can provide at this time. Pt states if I fall, she can just call the police, they help me back up. Pt lacks insight into concerns in terms of advancing dementia and level of care that he needs. He states I don't refuse medications, they don't give them to me. No SI/HI. No psychosis or delusions. Diagnostics Vital Signs (24Hr): Vital Signs - 24 hr 03/31/23 14:43 03/31/23 20:12 04/01/23 04:13 Temperature 97.9 F Pulse Rate 66 71 64 Respiratory Rate 16 19 16 Blood Pressure 136/61 144/78 H 146/65 H Pulse Oximetry 93 93 96 Oxygen Delivery Method Nasal Cannula Nasal Cannula Room Air Oxygen Flow Rate 2 2 04/01/23 07:44 04/01/23 07:53 Temperature 98.6 F Pulse Rate 78 78 Respiratory Rate 18 18 Blood Pressure 121/66 Pulse Oximetry 95 Oxygen Delivery Method Room Air Oxygen Flow Rate BMI result Body Mass Index 52.4 Labs 03/15/23 18:55 03/29/23 09:06 Labs: Laboratory Results - last 48 hr 03/30/23 03/30/23 03/31/23 11:44 21:39 07:33 POC Glucose 87 111 78 03/31/23 03/31/23 04/01/23 13:36 16:51 07:45 POC Glucose 125 H 111 87 Imaging Radiology Impressions: ITS Impressions Head CT 03/16/23 11:03 IMPRESSION: No acute intracranial process seen. Mental Status Exam Mental Status Exam Narrative: Appearance: MO, wearing hospital gown, poor hygiene, in NAD Behavior: coopearative Psychomotor: no agitation or retardation noted Speech: clear, regular rate. spontaneous TP:more organized and linear Mood: good Affect: constricted VH/AH: none Delusions: none Insight/judgment: impaired x 2 Cog/memory: Alert, oriented to place, not situation or need for higher level of care Medications Medications Current Medications Acetaminophen (Acetaminophen 325 Mg Tablet) 975 mg PO TID [facility] Last Admin: 04/01/23 07:59 Dose: 975 mg Albuterol Sulfate (Albuterol Sulfate 90 Mcg 8 Gm Inhaler) 2 puff INHALE Q4H PRN PRN Reason: Wheezing Aspirin (Aspirin Enteric Coated 81 Mg Tablet.) 81 mg PO DAILY [facility] Last Admin: 04/01/23 07:57 Dose: 81 mg Atorvastatin Calcium (Atorvastatin Calcium 80 Mg Tablet) 80 mg PO BEDTIME [facility] Last Admin: 03/31/23 20:23 Dose: 80 mg Carvedilol (Carvedilol 3.125 Mg Tablet) 3.125 mg PO BID [facility]; Protocol Last Admin: 04/01/23 07:57 Dose: 3.125 mg Clopidogrel Bisulfate (Clopidogrel Bisulfate 75 Mg Tablet) 75 mg PO DAILY [facility] Last Admin: 04/01/23 07:57 Dose: 75 mg Cyanocobalamin (Cyanocobalamin (Vitamin B-12) 1,000 Mcg/Ml Vial) 1,000 mcg IM Q30D [facility] Docusate Sodium (Docusate Sodium 100 Mg Capsule) 100 mg PO BID [facility] Last Admin: 04/01/23 07:59 Dose: 100 mg Enoxaparin Sodium (Enoxaparin Sodium 40 Mg/0.4 Ml Syringe) 40 mg SUBCUT Q24H [facility] Last Admin: 03/31/23 20:15 Dose: 40 mg Fluticasone/Umeclidinium/Vilanterol (Fluticasone/Umeclidinium/Vilanterol 200/62.5/25 Blst.W.Dev) 1 puff INHALE RDAILY [facility] Last Admin: 04/01/23 07:53 Dose: 1 puff Folic Acid (Folic Acid 1 Mg Tablet) 1 mg PO DAILY [facility] Last Admin: 04/01/23 07:58 Dose: 1 mg Furosemide (Furosemide 40 Mg Tablet) 40 mg PO DAILY [facility]; Protocol Last Admin: 04/01/23 07:58 Dose: 40 mg Gabapentin (Gabapentin 300 Mg Capsule) 300 mg PO TID [facility] Last Admin: 04/01/23 07:58 Dose: 300 mg Lactulose (Lactulose 20 Gm/30 Ml Solution) 10 gm PO DAILY [facility] Last Admin: 04/01/23 07:59 Dose: 10 gm Metformin HCl (Metformin Hcl Er 500 Mg Tab.Er.24h) 500 mg PO DAILY [facility] Last Admin: 04/01/23 07:58 Dose: 500 mg Polyethylene Glycol (Polyethylene Glycol 3350 17 Gm Powd.Pack) 17 gm PO DAILY [facility] Last Admin: 04/01/23 07:59 Dose: 17 gm Quetiapine Fumarate (Quetiapine Fumarate 50 Mg Tablet) 50 mg PO TID [facility] Last Admin: 04/01/23 07:58 Dose: 50 mg Senna (Sennosides 8.6 Mg Tablet) 17.2 mg PO BEDTIME [facility] Last Admin: 03/31/23 20:19 Dose: 17.2 mg Sertraline HCl (Sertraline Hcl 100 Mg Tablet) 100 mg PO DAILY [facility] Last Admin: 04/01/23 08:02 Dose: 100 mg Trazodone HCl (Trazodone Hcl 50 Mg Tablet) 50 mg PO BEDTIME [facility] Last Admin: 03/31/23 20:15 Dose: 50 mg Allergies Allergies Allergy/AdvReac Type Severity Reaction Status Date / Time No Known Allergies Allergy Verified 03/15/23 18:32 Assessment & Plan Assessment & Plan (1) Major neurocognitive disorder: Status: Acute Code(s): F03.90 - Unspecified dementia, unspecified severity, without behavioral disturbance, psychotic disturbance, mood disturbance, and anxiety Plan Mr. Villalobos is a 72 year-old male with hx of dementia who presents with s/s of delirium--> poor attention, disorganized thought process (which apparently not baseline), sent from [facility] due to combative behaviors at facility. PLAN 03/17/2023- pt appears calm, with evident memory/cognitive impairment. Still not oriented to situation but knows this is a hospital. Daughter states this seems to be his baseline, does not think he is far off. We discussed plan to return home with services- will referred pt back to case management 03/18 start seroquel 50mg po TID for agitation. monitor over sedation, EKG maintain Qtc<500ms, K>4, Mg>2. 2/2- it does appear that when he takes seroquel, he is calmer, unfortunately, when he refuses which is more out of episodic explosive behaviors than ongoing aggression or combative behaviors s/s to dementia, is difficult to redirect. His attention does appear much more improved. His thought process is more linear than when he first came to the hospital. Total time managing care of this patient today ____ minutes.
[2023-04-01 13:48] LABS: Glucose, Whole Blood 108 mg/dL (60-115)
--- NOTE | 2023-04-01 16:30 | PC.NURSE ---
patient found to be incontinent of a large amount of urine, patient linens changed, patient cleaned up, new dry pads. patient resting in bed, calm and cooperative, tele monitor in place for safety.
--- NOTE | 2023-04-01 18:54 | PC.NURSE ---
patient found to be incontinent of small amount of stool , patient cleaned up, new pads and linens in place, patient repositioned back in bed. respirations equal and unlabored. patient shows no signs of distress
[2023-04-01 19:52] VITALS: BP 124/57; PULSE 69; RESP 18; O2SAT 95
--- NOTE | 2023-04-01 21:31 | PC.NURSE ---
report given to SREE Carrillo
[2023-04-02] VITALS (7 sets, daily range): BP systolic 100–138; BP diastolic 46–62; PULSE 58–70; RESP 14–17; TEMP 36.4–36.8; O2SAT 83–96
[2023-04-02] MEDS: Fluticasone/Umeclidinium/Vilanterol 200/62.5/25 BLST.W.DEV 1 PUFF INHALE (07:18)
[2023-04-02 07:53] LABS: Glucose, Whole Blood 78 mg/dL (60-115)
--- NOTE | 2023-04-02 07:58 | MHC.EDTECH ---
T/w assisted Pt with breakfast. Had only OJ, bananas, and oatmeal per request.
[2023-04-02 08:40] LABS: Glucose, Whole Blood 122 mg/dL (60-115)
--- NOTE | 2023-04-02 08:56 | MHC.EDTECH ---
This tech and 2 other ED techs did full bedding change and cleaned up Pt. Repositioned and given warm blankets as Pt stated he was cold.
[2023-04-02] MEDS: Clopidogrel Bisulfate 75 MG TABLET PO (11:18)
[2023-04-02] MEDS: Aspirin Enteric Coated 81 MG TABLET.DR PO (11:18)
[2023-04-02] MEDS: carvediloL 3.125 MG TABLET PO ×2 (11:18→20:44)
[2023-04-02] MEDS: metFORMIN HCl ER 500 MG TAB.ER.24H PO (11:20)
[2023-04-02] MEDS: Furosemide 40 MG TABLET PO (11:20)
[2023-04-02] MEDS: Gabapentin 300 MG CAPSULE PO ×2 (11:20→20:44)
[2023-04-02] MEDS: Folic Acid 1 MG TABLET PO (11:21)
[2023-04-02] MEDS: QUEtiapine Fumarate 50 MG TABLET PO ×2 (11:21→20:44)
[2023-04-02] MEDS: Acetaminophen 325 MG TABLET 975 MG PO ×2 (11:21→20:43)
[2023-04-02] MEDS: Sertraline HCL 100 MG TABLET PO (11:38)
--- NOTE | 2023-04-02 11:41 | PC.NURSE ---
pt medicated per MAR, per primary RN pt has had 3 large BM's since 0700, colace, lactulose, and miralax held.
[2023-04-02] MEDS: Albuterol Sulfate 2.5 MG, Albuterol/Iprat 2.5/0.5MG 3 ML 3 ML INHALE (12:01)
[2023-04-02 12:31] LABS: Influenza A PCR NEGATIVE (Negative); Influenza B PCR NEGATIVE (Negative); Resp Syncy Virus RNA Qual PCR NEGATIVE (Negative); SARS COV2 PCR INHOUSE POSITIVE (Negative)
[2023-04-02 12:54] LABS: Glucose, Whole Blood 132 mg/dL (60-115)
[2023-04-02 14:06] LABS: MANUAL DIFF FLAG NO
[2023-04-02 14:09] LABS: Basophils Percent Auto 0.2 % (0-2); Eosinophils Absolute Auto 0.2 X10*3/uL (0.0-0.4); Eosinophils Percent Auto 2.2 % (0-4); Hematocrit 43.6 % (42.0-52.0); Hemoglobin 14.2 g/dl (14.0-18.0); Imm Gran Abs Auto 0.03 X10*3/uL (0.00-0.03); Imm Gran Pct Auto 0.4 % (0.0-0.4); Lymphocytes Percent Auto 12.3 % (20-40); Mean Corpuscular HGB Conc 32.6 g/dl (31.0-36.0); Mean Corpuscular Hemoglobin 32.8 pg (27.0-33.0); Mean Corpuscular Volume 100.7 fL (80.0-98.0); Mean Platelet Volume 9.6 fL (9.4-12.4); Monocytes Absolute Auto 0.7 X10*3/uL (0.1-1.2); Monocytes Percent Auto 8.4 % (2-11); Neutrophils Absolute Auto 6.2 x10*3/uL (2.0-8.3); Neutrophils Percent Auto 76.5 % (45-73); Platelet Count 162 X10*3/uL (160-400); Red Blood Count 4.33 X10*6/uL (4.60-5.80); Red Cell Distribution Width 14.8 % (11.0-16.0); White Blood Count 8.1 X10*3/uL (4.8-10.8)
[2023-04-02 14:12] LABS: VBG Base Excess 10.3 mmol/L; VBG HCO3 37 mmol/L (22-26); VBG pCO2 60 mmHg; VBG pO2 44 mmHg
[2023-04-02 14:12] LABS: Venous Blood Gas Refer to POC result
[2023-04-02 14:25] LABS: Alanine Aminotransferase 22 U/L (0-40); Albumin Level 3.7 g/dL (3.5-5.0); Alkaline Phosphatase 144 U/L (39-117); Anion Gap 13 (12-20); Aspartate Amino Transferase 22 U/L (5-37); Blood Urea Nitrogen 29 mg/dL (9-16); Calcium 9.4 mg/dL (8.4-10.2); Carbon Dioxide 33 mmol/L (22-29); Chloride 101 mmol/L (96-108); Estimated Glomerular Filt Rate 44; Glucose Random 124 mg/dL (60-115); Magnesium 2.7 mg/dL (1.6-2.6); Potassium 5.1 mmol/L (3.3-5.1); Sodium 142 mmol/L (135-145); Total Protein 6.9 g/dL (6.5-8.0)
[2023-04-02 14:33] LABS: Bilirubin Total 0.7 mg/dL (0.0-1.0)
[2023-04-02 15:05] LABS: Glucose, Whole Blood 97 mg/dL (60-115)
--- NOTE | 2023-04-02 15:10 | PC.NURSE ---
pt found to be Covid (+), pt has productive cough, pt SpO2 89-96 on 2l via NC-- PA Rick aware, respiratory at bedside.
--- NOTE | 2023-04-02 15:33 | PC.NURSE ---
pt in bed, appears to be sleeping, rise an fall of chest noted. pt difficult to rouse- will hold 3pm for now primary RN aware
[2023-04-02 15:45] LABS: Adenovirus F 40/41 Not Detected (Not Detect.); Astrovirus Not Detected (Not Detect.); Campylobacter Not Detected (Not Detect.); Cryptosporidium Not Detected (Not Detect.); Cyclospora cayetanensis Not Detected (Not Detect.); E. coli EAEC Not Detected (Not Detect.); E. coli EPEC Not Detected (Not Detect.); E. coli ETEC Not Detected (Not Detect.); E. coli STEC Not Detected (Not Detect.); Entamoeba histolytica Not Detected (Not Detect.); Giardia lamblia Not Detected (Not Detect.); Norovirus GI/GII Not Detected (Not Detect.); Plesiomonas shigelloides Not Detected (Not Detect.); Rotavirus A Not Detected (Not Detect.); Salmonella Not Detected (Not Detect.); Sapovirus Not Detected (Not Detect.); Shigella sp./EIEC Not Detected (Not Detect.); Vibrio Not Detected (Not Detect.); Vibrio Cholerae Not Detected (Not Detect.); Yersinia enterocolitica Not Detected (Not Detect.)
[2023-04-02] MEDS: dexAMETHasone sod phosphate 4 MG/ML VIAL 6 MG IVPUSH (19:44)
[2023-04-02] MEDS: Enoxaparin Sodium 40 MG/0.4 ML SYRINGE SUBCUT (19:44)
--- NOTE | 2023-04-02 19:44 | MHC.CM.ED ---
Pt diagnosed with Covid today. Sleepy, lethargic. O2Sats on RM 82. Dr. Casper will speak with hospitalist regarding admission. CM called a notified daugher/HCP Brenda regarding need for admission d/t covid and decreased oxygen saturations. Will speak with Brenda again after patient is seen by the hospitalist. Brenda reiterates that her father is a full code.
--- NOTE | 2023-04-02 19:45 | PM.IMHP ---
History of Present Illness Date of Service: 04/02/23 Attending physician on admission: Katelyn Abraham Chief Complaint: Hypoxia, COVID+ Pt is a 72-year-old male with a PMH significant for?CAD, [id number] diabetes type 2, who initially presented presents to the ED on 03/15/2023 from SNF after reportedly having hallucinations and being combative with staff. Patient was initially uncooperative and combative with EMS and declined being brought to the hospital. Healthcare proxy was invoked in order to bring him to the ED. a week prior patient was brought to be state but patient was non cooperative with labs and testing and was sent back to the facility without any workup. When patient presented to [facility] he had been experiencing worsening hallucinations, reportedly seeing horses, children, even dinosaurs. Workup at the hospital was negative for medical reason to explain his hallucinations. Psych was consulted and thought he may be suffering from delirium. Patient was then placed in physician observation. ?During stay patient had episode of sudden aggression, trying to punch staff, grab cords and IV lines; needed to be chemically restrained. Case management involved and initial plan at was for patient to return home with services, however after further discussion and consideration patient needs additional resources and bed search for long-term stay was undertaken. Earlier today patient was noted to be quite lethargic, and seen to be desatting to 82%. Patient tested positive for COVID, and was placed on 5 L O2. Other labs unremarkable. Patient afebrile, no tachycardia or tachypnea. No leukocytosis. CXR showed mild cardiomegaly and no evidence of pneumonia. Patient was started on dexamethasone. At time of interview and exam patient is somnolent but arousable. Answer some questions but falls back asleep immediately. Patient alert and oriented x2, not to place or situation. Denies any acute medical complaints. Patient will be admitted to the hospital medical floor for treatment and further evaluation of acute hypoxic respiratory failure in the setting of COVID infection. Review of Systems Review of Systems: Patient is somnolent, barely answering questions before falling back asleep. Denies any acute medical concerns at this time. [facility] Medical History (Updated 04/02/23 @ 20:52 by LASHANDA Martinez) Non-insulin dependent type 2 diabetes mellitus HTN (hypertension) CAD (coronary artery disease) Unspecified asthma Social History Patient Tobacco Use Status: Never used Tobacco Smoked in Last 30 Days: No Use of substances other than those prescribed or required for medical reasons: No Advance Directives: Yes Advance Directives on File: Yes Advance Directives Date on File: 03/15/23 Healthcare Proxy: Yes (Daughter) Guardian: No Meds Allergies Allergy/AdvReac Type Severity Reaction Status Date / Time No Known Allergies Allergy Verified 03/15/23 18:32 Active Medications: Current Medications Acetaminophen (Acetaminophen 325 Mg Tablet) 975 mg PO TID [facility] Last Admin: 04/02/23 17:03 Dose: Not Given Albuterol Sulfate (Albuterol Sulfate 90 Mcg 8 Gm Inhaler) 2 puff INHALE Q4H PRN PRN Reason: Wheezing Aspirin (Aspirin Enteric Coated 81 Mg Tablet.Dr) 81 mg PO DAILY [facility] Last Admin: 04/02/23 11:18 Dose: 81 mg Atorvastatin Calcium (Atorvastatin Calcium 80 Mg Tablet) 80 mg PO BEDTIME [facility] Last Admin: 04/01/23 21:05 Dose: Not Given Carvedilol (Carvedilol 3.125 Mg Tablet) 3.125 mg PO BID [facility]; Protocol Last Admin: 04/02/23 11:18 Dose: 3.125 mg Clopidogrel Bisulfate (Clopidogrel Bisulfate 75 Mg Tablet) 75 mg PO DAILY [facility] Last Admin: 04/02/23 11:18 Dose: 75 mg Cyanocobalamin (Cyanocobalamin (Vitamin B-12) 1,000 Mcg/Ml Vial) 1,000 mcg IM Q30D [facility] Dexamethasone Sodium Phosphate (Dexamethasone Sod Phosphate 4 Mg/Ml Vial) 6 mg IVPUSH DAILY [facility] Dextrose (Dextrose 50 % 25 Gm/50 Ml Syringe) 25 gm IVPUSH Q15M PRN; Protocol PRN Reason: per Hypoglycemia Standing Ord. Docusate Sodium (Docusate Sodium 100 Mg Capsule) 100 mg PO BID [facility] Last Admin: 04/02/23 11:32 Dose: Not Given Enoxaparin Sodium (Enoxaparin Sodium 40 Mg/0.4 Ml Syringe) 40 mg SUBCUT Q24H [facility] Last Admin: 04/02/23 19:44 Dose: 40 mg Fluticasone/Umeclidinium/Vilanterol (Fluticasone/Umeclidinium/Vilanterol 200/62.5/25 Blst.W.Dev) 1 puff INHALE RDAILY [facility] Last Admin: 04/02/23 07:18 Dose: 1 puff Folic Acid (Folic Acid 1 Mg Tablet) 1 mg PO DAILY [facility] Last Admin: 04/02/23 11:21 Dose: 1 mg Furosemide (Furosemide 40 Mg Tablet) 40 mg PO DAILY [facility]; Protocol Last Admin: 04/02/23 11:20 Dose: 40 mg Gabapentin (Gabapentin 300 Mg Capsule) 300 mg PO TID [facility] Last Admin: 04/02/23 17:03 Dose: Not Given Glucose (Glucose Gel 15 Gm Gel..Gram.) 15 gm PO Q15M PRN; Protocol PRN Reason: per Hypoglycemia Standing Ord. Insulin Human Lispro (Insulin Lispro 100 Unit/Ml 3 Ml Vial) 0 unit SUBCUT QIDACHS [facility]; Protocol Lactulose (Lactulose 20 Gm/30 Ml Solution) 10 gm PO DAILY [facility] Last Admin: 04/02/23 11:32 Dose: Not Given Melatonin (Melatonin 3 Mg Tablet) 6 mg PO BEDTIME PRN PRN Reason: Insomnia Metformin HCl (Metformin Hcl Er 500 Mg Tab.Er.24h) 500 mg PO DAILY [facility] Last Admin: 04/02/23 11:20 Dose: 500 mg Ondansetron HCl (Ondansetron Hcl 4 Mg/2 Ml Vial) 4 mg IVPUSH Q8H PRN PRN Reason: Nausea and Vomiting Polyethylene Glycol (Polyethylene Glycol 3350 17 Gm Powd.Pack) 17 gm PO DAILY [facility] Last Admin: 04/02/23 11:32 Dose: Not Given Quetiapine Fumarate (Quetiapine Fumarate 50 Mg Tablet) 50 mg PO TID [facility] Last Admin: 04/02/23 17:03 Dose: Not Given Senna (Sennosides 8.6 Mg Tablet) 17.2 mg PO BEDTIME [facility] Last Admin: 04/01/23 21:05 Dose: Not Given Sertraline HCl (Sertraline Hcl 100 Mg Tablet) 100 mg PO DAILY [facility] Last Admin: 04/02/23 11:38 Dose: 100 mg Sodium Chloride (0.9 % Sodium Chloride Flush 3 Ml Syringe) [facility] Trazodone HCl (Trazodone Hcl 50 Mg Tablet) 50 mg PO BEDTIME [facility] Last Admin: 04/01/23 21:05 Dose: Not Given Home Medications Medication Instructions Recorded Confirmed Last Taken Type acetaminophen 500 mg tablet 1,000 mg PO TID Pain 03/15/23 03/15/23 03/15/23 History albuterol sulfate 90 mcg/actuation 2 puff inhalation Q4H PRN Wheezing 03/15/23 03/15/23 Unknown History aerosol inhaler aspirin 81 mg tablet,delayed 81 mg PO DAILY 03/15/23 03/15/23 03/15/23 History release atorvastatin 80 mg tablet 80 mg PO BEDTIME 03/15/23 03/15/23 03/14/23 History bupropion HCl 100 mg tablet 100 mg PO DAILY 03/15/23 03/15/23 03/15/23 History carvedilol 3.125 mg tablet 3.125 mg PO BID 03/15/23 03/15/23 03/15/23 History cholecalciferol (vitamin D3) 1,250 1,250 mcg PO WE 03/15/23 03/15/23 03/10/23 History mcg (50,000 unit) tablet clopidogrel 75 mg tablet 75 mg PO DAILY 03/15/23 03/15/23 03/15/23 History cyanocobalamin (vitamin B-12) 100 mcg IM QMONTH 03/15/23 03/15/23 03/08/23 History 1,000 mcg/mL injection solution diclofenac sodium 1 % topical gel 2 g topical TID 03/15/23 03/15/23 03/15/23 History docusate sodium 100 mg capsule 100 mg PO BID 03/15/23 03/15/23 03/15/23 History (Colace) fluticasone fur. 200 mcg-umeclid 1 inh inhalation DAILY 03/15/23 03/15/23 03/15/23 History 62.5 mcg-vilant 25 mcg inhalat.powder (Trelegy Ellipta) folic acid 1 mg tablet 1 mg PO DAILY 03/15/23 03/15/23 03/15/23 History furosemide 40 mg tablet 40 mg PO DAILY 03/15/23 03/15/23 03/15/23 History gabapentin 300 mg capsule 300 mg PO TID 03/15/23 03/15/23 03/15/23 History lactulose 10 gram/15 mL oral 10 g PO DAILY 03/15/23 03/15/23 03/15/23 History solution metformin 500 mg tablet,extended 500 mg PO DAILY 03/15/23 03/15/23 03/15/23 History release 24 hr polyethylene glycol 3350 17 gram 17 g PO DAILY 03/15/23 03/15/23 03/15/23 History oral powder packet (Miralax) sennosides 8.6 mg tablet (senna) 17.2 mg PO BEDTIME 03/15/23 03/15/23 03/14/23 History sertraline 100 mg tablet 100 mg PO DAILY 03/15/23 03/15/23 03/15/23 History trazodone 50 mg tablet 50 mg PO BEDTIME 03/15/23 03/15/23 03/14/23 History Physical Exam Vital Signs and Narrative: Vital Signs: Last Vital Signs Temp 97.5 F 04/02/23 13:42 Pulse 69 04/02/23 13:42 Resp 16 04/02/23 13:42 BP 104/46 L 04/02/23 13:42 Pulse Ox 83 L 04/02/23 19:03 O2 Del Method Room Air 04/02/23 19:03 O2 Flow Rate 2 04/02/23 13:42 Oxygen Flow Rate 3 03/15/23 18:32 BMI result Body Mass Index 52.4 Constitutional: Somnolent but arousable. Answers a few questions, but falls back asleep immediately. In no acute distress. Mental Status: Oriented to person and time. Not to place or situation. Eyes: Pupils are equal, round, and reactive to light. Ear, Nose, and Throat: Oropharynx clear, mucous membranes moist. Ears and nose without deformities. Trachea midline. Respiratory: Clear to auscultation bilaterally. No wheezing, rales, or rhonchi. Cardiovascular: S1, S2 regular. No murmurs, rubs, or gallops. Gastrointestinal: Abdomen soft, non-tender, obese. Normal bowel sounds. Neurologic: Cranial nerves II-XII are grossly intact bilaterally. No focal neurological deficits. Moves all extremities spontaneously. Skin: Warm, dry. Musculoskeletal: No cyanosis or clubbing. Extremities: No edema. Results Labs 04/02/23 14:01 04/02/23 14:01 Labs: Laboratory Results - last 24 hr 04/02/23 04/02/23 04/02/23 07:39 08:38 11:50 MCV MCH MCHC RDW Plt Count MPV Immature Gran % (Auto) Neut % (Auto) Lymph % (Auto) [place] % (Auto) Eos % (Auto) Baso % (Auto) Lymph # (Auto) [place] # (Auto) Eos # (Auto) Baso # (Auto) Abs Immat Gran (auto) Absolute Neuts (auto) Absolute Nucleated RBC Nucleated RBC % (auto) VBG pH VBG pCO2 VBG pO2 VBG HCO3 VBG O2 Saturation VBG Base Excess Anion Gap Estim Creat Clear Calc Estimated GFR POC Glucose 78 122 H Random Glucose Calcium Magnesium Total Bilirubin AST ALT Alkaline Phosphatase Total Protein Albumin Stl C. cayetanensis PCR Stool Rotavirus A PCR Stl Adenov F 40/41 PCR Stool Astrovirus (PCR) Stool Campylobacter PCR Stool Cryptosporidium PCR Stl Sh Tox Pr E STEC PCR Stool E coli O157 PCR Stl Enterotoxigenic E PCR Stool EPEC (PCR) Stool EAEC (PCR) Stl E. histolytica PCR Stool Giardia Lamblia PCR Stl P. shigelloides PCR Stool Salmonella PCR Stool Sapovirus (PCR) Stl Shigella/EIEC PCR St Y.enterocolitica PCR Stool Vibrio (PCR) Stl Vibrio cholerae PCR Stl Norovirus GI/GII PCR Influenza Type A (PCR) NEGATIVE Influenza Type B (PCR) NEGATIVE RSV RNA Qual (PCR) NEGATIVE SARS-CoV-2 RNA (RT-PCR) POSITIVE A 04/02/23 04/02/23 04/02/23 12:45 12:49 14:01 MCV 100.7 H MCH 32.8 MCHC 32.6 RDW 14.8 Plt Count 162 MPV 9.6 Immature Gran % (Auto) 0.4 Neut % (Auto) 76.5 H Lymph % (Auto) 12.3 L [place] % (Auto) 8.4 Eos % (Auto) 2.2 Baso % (Auto) 0.2 Lymph # (Auto) 1.0 L [place] # (Auto) 0.7 Eos # (Auto) 0.2 Baso # (Auto) 0.0 Abs Immat Gran (auto) 0.03 Absolute Neuts (auto) 6.2 Absolute Nucleated RBC 0.000 Nucleated RBC % (auto) 0.0 VBG pH VBG pCO2 VBG pO2 VBG HCO3 VBG O2 Saturation VBG Base Excess Anion Gap 13 Estim Creat Clear Calc 71.0 Estimated GFR 44 POC Glucose 132 H Random Glucose 124 H Calcium 9.4 Magnesium 2.7 H Total Bilirubin 0.7 AST 22 ALT 22 Alkaline Phosphatase 144 H Total Protein 6.9 Albumin 3.7 Stl C. cayetanensis PCR Not Detected Stool Rotavirus A PCR Not Detected Stl Adenov F 40/41 PCR Not Detected Stool Astrovirus (PCR) Not Detected Stool Campylobacter PCR Not Detected Stool Cryptosporidium PCR Not Detected Stl Sh Tox Pr E STEC PCR Not Detected Stool E coli O157 PCR Not applicable Stl Enterotoxigenic E PCR Not Detected Stool EPEC (PCR) Not Detected Stool EAEC (PCR) Not Detected Stl E. histolytica PCR Not Detected Stool Giardia Lamblia PCR Not Detected Stl P. shigelloides PCR Not Detected Stool Salmonella PCR Not Detected Stool Sapovirus (PCR) Not Detected Stl Shigella/EIEC PCR Not Detected St Y.enterocolitica PCR Not Detected Stool Vibrio (PCR) Not Detected Stl Vibrio cholerae PCR Not Detected Stl Norovirus GI/GII PCR Not Detected Influenza Type A (PCR) Influenza Type B (PCR) RSV RNA Qual (PCR) SARS-CoV-2 RNA (RT-PCR) 04/02/23 04/02/23 14:05 14:58 MCV MCH MCHC RDW Plt Count MPV Immature Gran % (Auto) Neut % (Auto) Lymph % (Auto) [place] % (Auto) Eos % (Auto) Baso % (Auto) Lymph # (Auto) [place] # (Auto) Eos # (Auto) Baso # (Auto) Abs Immat Gran (auto) Absolute Neuts (auto) Absolute Nucleated RBC Nucleated RBC % (auto) VBG pH 7.40 VBG pCO2 60 VBG pO2 44 VBG HCO3 37 H VBG O2 Saturation 69.0 VBG Base Excess 10.3 Anion Gap Estim Creat Clear Calc Estimated GFR POC Glucose 97 Random Glucose Calcium Magnesium Total Bilirubin AST ALT Alkaline Phosphatase Total Protein Albumin Stl C. cayetanensis PCR Stool Rotavirus A PCR Stl Adenov F 40/41 PCR Stool Astrovirus (PCR) Stool Campylobacter PCR Stool Cryptosporidium PCR Stl Sh Tox Pr E STEC PCR Stool E coli O157 PCR Stl Enterotoxigenic E PCR Stool EPEC (PCR) Stool EAEC (PCR) Stl E. histolytica PCR Stool Giardia Lamblia PCR Stl P. shigelloides PCR Stool Salmonella PCR Stool Sapovirus (PCR) Stl Shigella/EIEC PCR St Y.enterocolitica PCR Stool Vibrio (PCR) Stl Vibrio cholerae PCR Stl Norovirus GI/GII PCR Influenza Type A (PCR) Influenza Type B (PCR) RSV RNA Qual (PCR) SARS-CoV-2 RNA (RT-PCR) Imaging Radiologist's Impressions: Impressions Chest X-Ray 04/02/23 12:03 IMPRESSION: Mild cardiomegaly Assessment and Plan (1) Hypoxia: Status: Acute (2) COVID-19: Status: Acute Plan Pt is a 72-year-old male with a PMH significant for?CAD, dii-bddxjqo-aukquszau diabetes type 2, who initially presented presents to the ED on 03/15/2023 from SNF after reportedly having hallucinations and being combative with staff. Pt was placed in physician observation in the ED until he became hypoxic and tested positive for COVID. Patient will be admitted to the hospital medical floor for treatment and further evaluation of acute hypoxic respiratory failure in the setting of COVID infection. Acute hypoxic respiratory failure in the setting COVID infection Patient desatted as low as 83% RA Will treat with dexamethasone, started 04/02/2023 No indication for remdesivir at this time Titrate supplemental O2 >92, wean as tolerated Continue home inhalers DuoNebs p.r.n. Monitor respiratory status HTN Continue Carvedilol CAD/HLD Continue statin, aspirin, and Plavix Mild persistence asthma Continue home inhalers Ifa-ddncmty-kxtaottlv type 2 diabetes Hold metformin [address] place on sliding scale insulin Diabetic diet Mood disorder Continue home meds Disposition Pt followed by Case Management for terminal operations supervisor placement Full Code Attending:?Dr. Abraham DVT Prophylaxis: Lovenox Pt will require a hospitalization of at least two nights for treatment of?acute hypoxic respiratory failure in setting of COVID. Patient will require hospitalization for administration of IV steroids and supplemental oxygen. Quality Stroke Does the patient have a stroke diagnosis?: No VTE Prior VTE?: No VTE Risk Level:: Medical - moderate - high VTE Device Contraindication: Treatment Not Indicated VTE Drug Contraindication: N/A - Med Ordered
[2023-04-02 19:49] LABS: VBG Base Excess 10.6 mmol/L; VBG HCO3 38 mmol/L (22-26); VBG pCO2 65 mmHg; VBG pH 7.37 (7.32-7.43); VBG pO2 27 mmHg
[2023-04-02 19:49] LABS: Venous Blood Gas Refer to POC result
[2023-04-02 19:58] LABS: Lactic Acid 0.8 mmol/L (0.5-2.0)
[2023-04-02 20:07] LABS: B Type Natriuretic Peptide 22 pg/mL (<100)
--- NOTE | 2023-04-02 20:11 | MHC.EDTECH ---
Patient total bed changed and repositioned
--- NOTE | 2023-04-02 20:12 | PC.NURSE ---
Pt tested positive for COVID today. Dr Casper at bedside removed O2. Pt O2 sat dropped intothe 80's. Pt is now going to be admitted. 20g IV placed in the right AC and labs/cultures have been drawn and sent. Pt was cleaned and repositioned in bed, assisted with the urinal.
[2023-04-02] MEDS: Sennosides 8.6 MG TABLET 17.2 MG PO (20:43)
[2023-04-02] MEDS: Docusate Sodium 100 MG CAPSULE PO (20:44)
[2023-04-02] MEDS: traZODone HCL 50 MG TABLET PO (20:44)
[2023-04-02] MEDS: Atorvastatin Calcium 80 MG TABLET PO (20:44)
[2023-04-02 21:09] LABS: Glucose, Whole Blood 109 mg/dL (60-115)
[2023-04-02 21:33] LABS: CDiff Gene PCR NEGATIVE (Negative)
[2023-04-03 00:36] VITALS: BP 114/81; PULSE 58; RESP 18; TEMP 36.4; O2SAT 96
[2023-04-03] MEDS: 0.9 % Sodium Chloride Flush 3 ML SYRINGE IVFLUSH ×3 (01:06→20:05)
[2023-04-03 01:28] LABS: Glucose, Whole Blood 150 mg/dL (60-115)
[2023-04-03 03:25] VITALS: BP 111/73; PULSE 62; RESP 18; TEMP 36.2; O2SAT 96
[2023-04-03 07:25] VITALS: BP 112/58; PULSE 58; RESP 20; TEMP 36.3; O2SAT 96
[2023-04-03 07:26] VITALS: BMI 44.3
--- NOTE | 2023-04-03 07:26 | PC.NURSE ---
Pt arrived with cell phone and some snacks in a bag. No other belongings with patient on arrival to unit.
[2023-04-03 08:23] LABS: Basophils Percent Auto 0.1 % (0-2); Hematocrit 39.2 % (42.0-52.0); Imm Gran Abs Auto 0.03 X10*3/uL (0.00-0.03); Imm Gran Pct Auto 0.4 % (0.0-0.4); Lymphocytes Absolute Auto 0.5 X10*3/uL (1.2-4.9); Lymphocytes Percent Auto 6.4 % (20-40); MANUAL DIFF FLAG SCAN; Mean Corpuscular HGB Conc 33.2 g/dl (31.0-36.0); Mean Corpuscular Hemoglobin 33.6 pg (27.0-33.0); Mean Corpuscular Volume 101.3 fL (80.0-98.0); Mean Platelet Volume 9.5 fL (9.4-12.4); Monocytes Absolute Auto 0.2 X10*3/uL (0.1-1.2); Monocytes Percent Auto 2.1 % (2-11); Platelet Count 153 X10*3/uL (160-400); Red Blood Count 3.87 X10*6/uL (4.60-5.80); Red Cell Distribution Width 14.7 % (11.0-16.0); SCAN SMEAR FLAG 1; White Blood Count 7.7 X10*3/uL (4.8-10.8)
[2023-04-03 08:29] LABS: Glucose, Whole Blood 137 mg/dL (60-115)
[2023-04-03] MEDS: Fluticasone/Umeclidinium/Vilanterol 200/62.5/25 BLST.W.DEV 1 PUFF INHALE (08:39)
[2023-04-03 08:40] VITALS: PULSE 58; RESP 20; O2SAT 94
[2023-04-03 08:48] LABS: Anion Gap 13 (12-20); Blood Urea Nitrogen 32 mg/dL (9-16); Calcium 9.3 mg/dL (8.4-10.2); Carbon Dioxide 33 mmol/L (22-29); Chloride 99 mmol/L (96-108); Creatinine Clr Calc Pharmacy 64.3; Estimated Glomerular Filt Rate 44; Glucose Random 137 mg/dL (60-115); Potassium 4.9 mmol/L (3.3-5.1); Sodium 140 mmol/L (135-145)
[2023-04-03] MEDS: Docusate Sodium 100 MG CAPSULE PO ×2 (09:46→20:04)
[2023-04-03] MEDS: QUEtiapine Fumarate 50 MG TABLET PO ×3 (09:46→20:05)
[2023-04-03] MEDS: carvediloL 3.125 MG TABLET PO ×2 (09:46→20:04)
[2023-04-03] MEDS: Sertraline HCL 100 MG TABLET PO (09:46)
[2023-04-03] MEDS: Clopidogrel Bisulfate 75 MG TABLET PO (09:46)
[2023-04-03] MEDS: Folic Acid 1 MG TABLET PO (09:46)
[2023-04-03] MEDS: dexAMETHasone sod phosphate 4 MG/ML VIAL 6 MG IVPUSH (09:47)
[2023-04-03] MEDS: Furosemide 40 MG TABLET PO (09:47)
[2023-04-03] MEDS: Acetaminophen 325 MG TABLET 975 MG PO ×3 (09:47→20:04)
[2023-04-03] MEDS: Gabapentin 300 MG CAPSULE PO ×3 (09:47→20:04)
[2023-04-03] MEDS: Aspirin Enteric Coated 81 MG TABLET.DR PO (09:47)
[2023-04-03 11:49] LABS: SLIDE REVIEW VERIFIED
--- NOTE | 2023-04-03 11:55 | MHC.CM.PN ---
IMM sent to pt.s HCP / daughter Deirdre Rolle. Pt. is confused, HCP has been invoked. DC plan for pt is LTC in SNF. referrals out, none accepting at this time. CM will follow and assist with DC plan.
[2023-04-03 11:56] LABS: Glucose, Whole Blood 208 mg/dL (60-115)
[2023-04-03] MEDS: Benzonatate 100 MG CAPSULE 200 MG PO ×3 (12:26→20:04)
[2023-04-03] MEDS: Omeprazole 20 MG CAPSULE.DR PO (12:27)
[2023-04-03] MEDS: Insulin Lispro 100 UNIT/ML 3 ML VIAL SUBCUT (12:27)
--- NOTE | 2023-04-03 13:07 | HO.PM.IMPN ---
Subjective Subjective Date of Service: 04/03/23 Interval History: Being followed for COVID-19 infection with hypoxia, patient is resting comfortably complaining of abdominal discomfort, and cough at times productive, denies fever ,chills offers no other complaints of nausea vomiting, no diarrhea not aware of last bowel movement. Review of Systems All other system reviewed and negative Physical Exam Vital Signs: Vital Signs: Last Vital Signs Temp 97.3 F 04/03/23 07:25 Pulse 58 04/03/23 08:40 Resp 20 04/03/23 08:40 BP 112/58 L 04/03/23 07:25 Pulse Ox 96 04/03/23 07:25 O2 Del Method Nasal Cannula 04/03/23 07:25 O2 Flow Rate 4 04/03/23 07:25 Oxygen Flow Rate 3 03/15/23 18:32 BMI result Body Mass Index 44.3 Const: Other: General awake alert, resting comfortably in no acute distress. Neck supple no JVD. CVS regular rate rhythm, Respiratory lungs clear to auscultation, no respiratory distress, no wheeze, no rhonchi. Gastrointestinal abdomen soft, nontender, bowel sounds audible,no guarding , no rigidity. Extremities no edema. Neuro non focal, moving all 4 extremity, speech clear. Psych appropriate affect Objective Data Active Medications Acetaminophen (Acetaminophen 325 Mg Tablet) 975 mg PO TID [facility] Last Admin: 04/03/23 09:47 Dose: 975 mg Documented By: KARINE Al Hydroxide/Mg Hydroxide (Magnesium Hydrox/Alum Hydrox 30 Ml Oral.Susp) 30 ml PO Q6H PRN PRN Reason: dyspepsia Albuterol Sulfate (Albuterol Sulfate 90 Mcg 8 Gm Inhaler) 2 puff INHALE Q4H PRN PRN Reason: Wheezing Albuterol/Ipratropium (Albuterol/Iprat 2.5/0.5mg 3 Ml Ampul.Neb) 3 ml INHALE RQ4H WHILE AWAKE PRN PRN Reason: Shortness of Breath/Wheezing Aspirin (Aspirin Enteric Coated 81 Mg Tablet.) 81 mg PO DAILY [facility] Last Admin: 04/03/23 09:47 Dose: 81 mg Documented By: KARINE Atorvastatin Calcium (Atorvastatin Calcium 80 Mg Tablet) 80 mg PO BEDTIME [facility] Last Admin: 04/02/23 20:44 Dose: 80 mg Documented By: PIERRE Benzonatate (Benzonatate 100 Mg Capsule) 200 mg PO TID [facility] Last Admin: 04/03/23 12:26 Dose: 200 mg Documented By: KARINE Carvedilol (Carvedilol 3.125 Mg Tablet) 3.125 mg PO BID [facility]; Protocol Last Admin: 04/03/23 09:46 Dose: 3.125 mg Documented By: KARINE Clopidogrel Bisulfate (Clopidogrel Bisulfate 75 Mg Tablet) 75 mg PO DAILY [facility] Last Admin: 04/03/23 09:46 Dose: 75 mg Documented By: KARINE Cyanocobalamin (Cyanocobalamin (Vitamin B-12) 1,000 Mcg/Ml Vial) 1,000 mcg IM Q30D [facility] Dexamethasone Sodium Phosphate (Dexamethasone Sod Phosphate 4 Mg/Ml Vial) 6 mg IVPUSH DAILY [facility] Last Admin: 04/03/23 09:47 Dose: 6 mg Documented By: KARINE Dextrose (Dextrose 50 % 25 Gm/50 Ml Syringe) 25 gm IVPUSH Q15M PRN; Protocol PRN Reason: per Hypoglycemia Standing Ord. Docusate Sodium (Docusate Sodium 100 Mg Capsule) 100 mg PO BID [facility] Last Admin: 04/03/23 09:46 Dose: 100 mg Documented By: KARINE Enoxaparin Sodium (Enoxaparin Sodium 40 Mg/0.4 Ml Syringe) 40 mg SUBCUT Q24H [facility] Last Admin: 04/02/23 19:44 Dose: 40 mg Documented By: PIERRE Fluticasone/Umeclidinium/Vilanterol (Fluticasone/Umeclidinium/Vilanterol 200/62.5/25 Blst.W.Dev) 1 puff INHALE RDAILY [facility] Last Admin: 04/03/23 08:39 Dose: 1 puff Documented By: JASSI Folic Acid (Folic Acid 1 Mg Tablet) 1 mg PO DAILY [facility] Last Admin: 04/03/23 09:46 Dose: 1 mg Documented By: KARINE Furosemide (Furosemide 40 Mg Tablet) 40 mg PO DAILY [facility]; Protocol Last Admin: 04/03/23 09:47 Dose: 40 mg Documented By: KARINE Gabapentin (Gabapentin 300 Mg Capsule) 300 mg PO TID [facility] Last Admin: 04/03/23 09:47 Dose: 300 mg Documented By: KARINE Glucose (Glucose Gel 15 Gm Gel..Gram.) 15 gm PO Q15M PRN; Protocol PRN Reason: per Hypoglycemia Standing Ord. Remdesivir 200 mg/ Sodium (Chloride) 210 mls @ 105 mls/hr IV ONCE ONE Stop: 04/03/23 14:59 Remdesivir 100 mg/ Sodium (Chloride) 230 mls @ 115 mls/hr IV Q24H [facility] Stop: 04/05/23 14:59 Insulin Human Lispro (Insulin Lispro 100 Unit/Ml 3 Ml Vial) 0 unit SUBCUT QIDACHS [facility]; Protocol Last Admin: 04/03/23 12:27 Dose: 4 unit Documented By: KARINE Lactulose (Lactulose 20 Gm/30 Ml Solution) 10 gm PO DAILY [facility] Last Admin: 04/03/23 10:31 Dose: Not Given Documented By: KARINE Non-Admin Reason: Patient Refused Melatonin (Melatonin 3 Mg Tablet) 6 mg PO BEDTIME PRN PRN Reason: Insomnia Omeprazole (Omeprazole 20 Mg Capsule.Dr) 20 mg PO DAILY@0630 [facility] Last Admin: 04/03/23 12:27 Dose: 20 mg Documented By: KARINE Ondansetron HCl (Ondansetron Hcl 4 Mg/2 Ml Vial) 4 mg IVPUSH Q8H PRN PRN Reason: Nausea and Vomiting Polyethylene Glycol (Polyethylene Glycol 3350 17 Gm Powd.Pack) 17 gm PO DAILY [facility] Last Admin: 04/03/23 10:31 Dose: Not Given Documented By: KARINE Non-Admin Reason: Patient Refused Quetiapine Fumarate (Quetiapine Fumarate 50 Mg Tablet) 50 mg PO TID [facility] Last Admin: 04/03/23 09:46 Dose: 50 mg Documented By: KARINE Senna (Sennosides 8.6 Mg Tablet) 17.2 mg PO BEDTIME [facility] Last Admin: 04/02/23 20:43 Dose: 17.2 mg Documented By: PIERRE Sertraline HCl (Sertraline Hcl 100 Mg Tablet) 100 mg PO DAILY [facility] Last Admin: 04/03/23 09:46 Dose: 100 mg Documented By: KARINE Sodium Chloride (0.9 % Sodium Chloride Flush 3 Ml Syringe) 3 ml IVFLUSH QSHIFT [facility] Last Admin: 04/03/23 01:06 Dose: 3 ml Documented By: ANDATUL Trazodone HCl (Trazodone Hcl 50 Mg Tablet) 50 mg PO BEDTIME [facility] Last Admin: 04/02/23 20:44 Dose: 50 mg Documented By: PIERRE Labs 04/03/23 07:48 04/03/23 07:48 Labs: Laboratory Results - last 24 hr 04/02/23 04/02/23 04/02/23 12:45 14:01 14:05 MCV 100.7 H MCH 32.8 MCHC 32.6 RDW 14.8 Plt Count 162 MPV 9.6 Immature Gran % (Auto) 0.4 Neut % (Auto) 76.5 H Lymph % (Auto) 12.3 L [place] % (Auto) 8.4 Eos % (Auto) 2.2 Baso % (Auto) 0.2 Lymph # (Auto) 1.0 L [place] # (Auto) 0.7 Eos # (Auto) 0.2 Baso # (Auto) 0.0 Abs Immat Gran (auto) 0.03 Absolute Neuts (auto) 6.2 Absolute Nucleated RBC 0.000 Nucleated RBC % (auto) 0.0 Smear Tech's Comments VBG pH 7.40 VBG pCO2 60 VBG pO2 44 VBG HCO3 37 H VBG O2 Saturation 69.0 VBG Base Excess 10.3 Anion Gap 13 Estim Creat Clear Calc 71.0 Estimated GFR 44 POC Glucose Random Glucose 124 H Lactic Acid Calcium 9.4 Magnesium 2.7 H Total Bilirubin 0.7 AST 22 ALT 22 Alkaline Phosphatase 144 H B-Natriuretic Peptide Total Protein 6.9 Albumin 3.7 Stl C. cayetanensis PCR Not Detected Stool Rotavirus A PCR Not Detected Stl Adenov F 40/41 PCR Not Detected Stool Astrovirus (PCR) Not Detected Stool Campylobacter PCR Not Detected Stool Cryptosporidium PCR Not Detected Stl Sh Tox Pr E STEC PCR Not Detected Stool E coli O157 PCR Not applicable Stl Enterotoxigenic E PCR Not Detected Stool EPEC (PCR) Not Detected Stool EAEC (PCR) Not Detected Stl E. histolytica PCR Not Detected Stool Giardia Lamblia PCR Not Detected Stl P. shigelloides PCR Not Detected Stool Salmonella PCR Not Detected Stool Sapovirus (PCR) Not Detected Stl Shigella/EIEC PCR Not Detected St Y.enterocolitica PCR Not Detected Stool Vibrio (PCR) Not Detected Stl Vibrio cholerae PCR Not Detected Stl Norovirus GI/GII PCR Not Detected C. difficile Tox B Gene NEGATIVE 04/02/23 04/02/23 04/02/23 14:58 19:38 19:42 MCV MCH MCHC RDW Plt Count MPV Immature Gran % (Auto) Neut % (Auto) Lymph % (Auto) [place] % (Auto) Eos % (Auto) Baso % (Auto) Lymph # (Auto) [place] # (Auto) Eos # (Auto) Baso # (Auto) Abs Immat Gran (auto) Absolute Neuts (auto) Absolute Nucleated RBC Nucleated RBC % (auto) Smear Tech's Comments VBG pH 7.37 VBG pCO2 65 VBG pO2 27 VBG HCO3 38 H VBG O2 Saturation 32.0 VBG Base Excess 10.6 Anion Gap Estim Creat Clear Calc Estimated GFR POC Glucose 97 Random Glucose Lactic Acid 0.8 Calcium Magnesium Total Bilirubin AST ALT Alkaline Phosphatase B-Natriuretic Peptide 22 Total Protein Albumin Stl C. cayetanensis PCR Stool Rotavirus A PCR Stl Adenov F 40/41 PCR Stool Astrovirus (PCR) Stool Campylobacter PCR Stool Cryptosporidium PCR Stl Sh Tox Pr E STEC PCR Stool E coli O157 PCR Stl Enterotoxigenic E PCR Stool EPEC (PCR) Stool EAEC (PCR) Stl E. histolytica PCR Stool Giardia Lamblia PCR Stl P. shigelloides PCR Stool Salmonella PCR Stool Sapovirus (PCR) Stl Shigella/EIEC PCR St Y.enterocolitica PCR Stool Vibrio (PCR) Stl Vibrio cholerae PCR Stl Norovirus GI/GII PCR C. difficile Tox B Gene 04/02/23 04/03/23 04/03/23 21:05 01:24 07:48 MCV 101.3 H MCH 33.6 H MCHC 33.2 RDW 14.7 Plt Count 153 L MPV 9.5 Immature Gran % (Auto) 0.4 Neut % (Auto) 91.0 H Lymph % (Auto) 6.4 L [place] % (Auto) 2.1 Eos % (Auto) 0.0 Baso % (Auto) 0.1 Lymph # (Auto) 0.5 L [place] # (Auto) 0.2 Eos # (Auto) 0.0 Baso # (Auto) 0.0 Abs Immat Gran (auto) 0.03 Absolute Neuts (auto) 7.0 Absolute Nucleated RBC 0.000 Nucleated RBC % (auto) 0.0 Smear Tech's Comments VERIFIED VBG pH VBG pCO2 VBG pO2 VBG HCO3 VBG O2 Saturation VBG Base Excess Anion Gap 13 Estim Creat Clear Calc 64.3 Estimated GFR 44 POC Glucose 109 150 H Random Glucose 137 H Lactic Acid Calcium 9.3 Magnesium Total Bilirubin AST ALT Alkaline Phosphatase B-Natriuretic Peptide Total Protein Albumin Stl C. cayetanensis PCR Stool Rotavirus A PCR Stl Adenov F PCR Stool Astrovirus (PCR) Stool Campylobacter PCR Stool Cryptosporidium PCR Stl Sh Tox Pr E STEC PCR Stool E coli O157 PCR Stl Enterotoxigenic E PCR Stool EPEC (PCR) Stool EAEC (PCR) Stl E. histolytica PCR Stool Giardia Lamblia PCR Stl P. shigelloides PCR Stool Salmonella PCR Stool Sapovirus (PCR) Stl Shigella/EIEC PCR St Y.enterocolitica PCR Stool Vibrio (PCR) Stl Vibrio cholerae PCR Stl Norovirus GI/GII PCR C. difficile Tox B Gene 04/03/23 04/03/23 08:05 11:53 MCV MCH MCHC RDW Plt Count MPV Immature Gran % (Auto) Neut % (Auto) Lymph % (Auto) [place] % (Auto) Eos % (Auto) Baso % (Auto) Lymph # (Auto) [place] # (Auto) Eos # (Auto) Baso # (Auto) Abs Immat Gran (auto) Absolute Neuts (auto) Absolute Nucleated RBC Nucleated RBC % (auto) Smear Tech's Comments VBG pH VBG pCO2 VBG pO2 VBG HCO3 VBG O2 Saturation VBG Base Excess Anion Gap Estim Creat Clear Calc Estimated GFR POC Glucose 137 H 208 H Random Glucose Lactic Acid Calcium Magnesium Total Bilirubin AST ALT Alkaline Phosphatase B-Natriuretic Peptide Total Protein Albumin Stl C. cayetanensis PCR Stool Rotavirus A PCR Stl Adenov F PCR Stool Astrovirus (PCR) Stool Campylobacter PCR Stool Cryptosporidium PCR Stl Sh Tox Pr E STEC PCR Stool E coli O157 PCR Stl Enterotoxigenic E PCR Stool EPEC (PCR) Stool EAEC (PCR) Stl E. histolytica PCR Stool Giardia Lamblia PCR Stl P. shigelloides PCR Stool Salmonella PCR Stool Sapovirus (PCR) Stl Shigella/EIEC PCR St Y.enterocolitica PCR Stool Vibrio (PCR) Stl Vibrio cholerae PCR Stl Norovirus GI/GII PCR C. difficile Tox B Gene Assessment and Plan (1) Hypoxia: Status: Acute (2) COVID-19: Status: Acute Plan 72-year-old male with a PMH significant for?CAD, [id number] diabetes type 2, who initially presented presents to the ED on 03/15/2023 from SNF after reportedly having hallucinations and being combative with staff. Pt was placed in physician observation in the ED until he became hypoxic and tested positive for COVID. Patient will be admitted to the hospital medical floor for treatment and further evaluation of acute hypoxic respiratory failure in the setting of COVID infection. Acute hypoxic respiratory failure in the setting COVID infection Clinically improving no shortness of breath, persistent cough Continue IV dexamethasone, started 04/02/2023, will add remdesivir Titrate supplemental O2 >92, wean as tolerated, not on home oxygen Will add Prilosec while on steroids Continue inhalers, DuoNeb as needed, add cough medication Monitor respiratory status HTN Soft blood pressures Continue Carvedilol and follow BP CAD/HLD Continue statin, aspirin, Coreg and Plavix Mild persistence asthma no acute exacerbation Continue home inhalers Oug-mkcxeuu-aqhogorcl type 2 diabetes Hold metformin, Will place on sliding scale insulin Diabetic diet Mood disorder Continue home meds, being followed by Psychiatry. Morbid obesity recommend low-calorie diet. Disposition Pt followed by Case Management for custodial placement. Full Code DVT Prophylaxis: Lovenox Pt will require continued inpatient hospitalization for?acute hypoxic respiratory failure in setting of COVID. Patient will require hospitalization for administration of IV steroids and supplemental oxygen. Quality Stroke Does the patient have a stroke diagnosis?: No VTE Prior VTE?: No VTE Risk Level:: Medical - moderate - high VTE Device Contraindication: Treatment Not Indicated VTE Drug Contraindication: N/A - Med Ordered
[2023-04-03] MEDS: Remdesivir 200 MG in 0.9 % Sodium Chloride 210 ML 105 MG IV (14:40)
[2023-04-03 15:26] VITALS: BP 129/62; PULSE 62; RESP 20; TEMP 36.2; O2SAT 92
[2023-04-03 16:42] LABS: Glucose, Whole Blood 167 mg/dL (60-115)
[2023-04-03 19:10] VITALS: BP 133/66; PULSE 56; RESP 20; TEMP 36.2; O2SAT 98
[2023-04-03] MEDS: Sennosides 8.6 MG TABLET 17.2 MG PO (20:04)
[2023-04-03] MEDS: traZODone HCL 50 MG TABLET PO (20:04)
[2023-04-03] MEDS: Enoxaparin Sodium 40 MG/0.4 ML SYRINGE SUBCUT (20:04)
[2023-04-03] MEDS: Atorvastatin Calcium 80 MG TABLET PO (20:05)
[2023-04-03 20:32] LABS: Glucose, Whole Blood 162 mg/dL (60-115)
[2023-04-04] VITALS (7 sets, daily range): BP systolic 117–167; BP diastolic 57–71; PULSE 47–70; RESP 16–20; TEMP 35.7–36.7; O2SAT 92–98
[2023-04-04] MEDS: Omeprazole 20 MG CAPSULE.DR PO (05:48)
[2023-04-04 07:38] LABS: Glucose, Whole Blood 144 mg/dL (60-115)
[2023-04-04] MEDS: Fluticasone/Umeclidinium/Vilanterol 200/62.5/25 BLST.W.DEV 1 PUFF INHALE (07:59)
[2023-04-04] MEDS: Benzonatate 100 MG CAPSULE 200 MG PO ×3 (08:00→20:54)
[2023-04-04] MEDS: Sertraline HCL 100 MG TABLET PO (08:44)
[2023-04-04] MEDS: Clopidogrel Bisulfate 75 MG TABLET PO (08:44)
[2023-04-04] MEDS: Gabapentin 300 MG CAPSULE PO ×3 (08:47→20:53)
[2023-04-04] MEDS: Acetaminophen 325 MG TABLET 975 MG PO ×3 (08:48→20:53)
[2023-04-04] MEDS: Aspirin Enteric Coated 81 MG TABLET.DR PO (08:48)
[2023-04-04] MEDS: Docusate Sodium 100 MG CAPSULE PO ×2 (08:48→20:54)
[2023-04-04] MEDS: carvediloL 3.125 MG TABLET PO (08:48)
[2023-04-04] MEDS: Furosemide 40 MG TABLET PO (08:48)
[2023-04-04] MEDS: Folic Acid 1 MG TABLET PO (08:48)
[2023-04-04] MEDS: 0.9 % Sodium Chloride Flush 3 ML SYRINGE IVFLUSH ×2 (08:49→20:54)
[2023-04-04] MEDS: dexAMETHasone sod phosphate 4 MG/ML VIAL 6 MG IVPUSH (08:49)
[2023-04-04] MEDS: QUEtiapine Fumarate 50 MG TABLET PO ×3 (08:50→20:54)
[2023-04-04 11:21] LABS: Glucose, Whole Blood 216 mg/dL (60-115)
[2023-04-04] MEDS: Insulin Lispro 100 UNIT/ML 3 ML VIAL SUBCUT ×2 (11:57→16:53)
--- NOTE | 2023-04-04 14:01 | HO.PM.IMPN ---
Subjective Subjective Date of Service: 04/04/23 Interval History: Being followed for COVID infection and hypoxia Patient offers no acute complaints, denies shortness of breath, no cough denies fever chills, tolerating diet with no nausea, no vomiting, no abdominal pain, no acute events overnight oxygenation is stable on 2 L Review of Systems All other system reviewed and negative Physical Exam Vital Signs: Vital Signs: Last Vital Signs Temp 97.2 F 04/04/23 07:26 Pulse 55 04/04/23 08:01 Resp 16 04/04/23 08:01 BP 126/57 L 04/04/23 07:26 Pulse Ox 97 04/04/23 07:26 O2 Del Method Nasal Cannula 04/04/23 07:26 O2 Flow Rate 4 04/04/23 07:26 Oxygen Flow Rate 3 03/15/23 18:32 BMI result Body Mass Index 44.3 Const: Other: General awake alert, resting comfortably in no acute distress. Neck supple no JVD. CVS regular rate rhythm, Respiratory lungs clear to auscultation, no respiratory distress, no wheeze, no rhonchi. Gastrointestinal abdomen soft, nontender, bowel sounds audible,no guarding , no rigidity. Extremities no edema. Neuro non focal, moving all 4 extremity, speech clear. Psych appropriate affect Objective Data Active Medications Acetaminophen (Acetaminophen 325 Mg Tablet) 975 mg PO TID [facility] Last Admin: 04/04/23 08:48 Dose: 975 mg Documented By: KARINE Al Hydroxide/Mg Hydroxide (Magnesium Hydrox/Alum Hydrox 30 Ml Oral.Susp) 30 ml PO Q6H PRN PRN Reason: dyspepsia Albuterol Sulfate (Albuterol Sulfate 90 Mcg 8 Gm Inhaler) 2 puff INHALE Q4H PRN PRN Reason: Wheezing Albuterol/Ipratropium (Albuterol/Iprat 2.5/0.5mg 3 Ml Ampul.Neb) 3 ml INHALE RQ4H WHILE AWAKE PRN PRN Reason: Shortness of Breath/Wheezing Aspirin (Aspirin Enteric Coated 81 Mg Tablet.) 81 mg PO DAILY [facility] Last Admin: 04/04/23 08:48 Dose: 81 mg Documented By: KARINE Atorvastatin Calcium (Atorvastatin Calcium 80 Mg Tablet) 80 mg PO BEDTIME [facility] Last Admin: 04/03/23 20:05 Dose: 80 mg Documented By: ZUNILDA Benzonatate (Benzonatate 100 Mg Capsule) 200 mg PO TID [facility] Last Admin: 04/04/23 08:00 Dose: 200 mg Documented By: KARINE Carvedilol (Carvedilol 3.125 Mg Tablet) 3.125 mg PO BID [facility]; Protocol Last Admin: 04/04/23 08:48 Dose: 3.125 mg Documented By: KARINE Clopidogrel Bisulfate (Clopidogrel Bisulfate 75 Mg Tablet) 75 mg PO DAILY [facility] Last Admin: 04/04/23 08:44 Dose: 75 mg Documented By: KARINE Cyanocobalamin (Cyanocobalamin (Vitamin B-12) 1,000 Mcg/Ml Vial) 1,000 mcg IM Q30D [facility] Dexamethasone Sodium Phosphate (Dexamethasone Sod Phosphate 4 Mg/Ml Vial) 6 mg IVPUSH DAILY [facility] Last Admin: 04/04/23 08:49 Dose: 6 mg Documented By: KARINE Dextrose (Dextrose 50 % 25 Gm/50 Ml Syringe) 25 gm IVPUSH Q15M PRN; Protocol PRN Reason: per Hypoglycemia Standing Ord. Docusate Sodium (Docusate Sodium 100 Mg Capsule) 100 mg PO BID [facility] Last Admin: 04/04/23 08:48 Dose: 100 mg Documented By: KARINE Enoxaparin Sodium (Enoxaparin Sodium 40 Mg/0.4 Ml Syringe) 40 mg SUBCUT Q24H [facility] Last Admin: 04/03/23 20:04 Dose: 40 mg Documented By: ZUNILDA Fluticasone/Umeclidinium/Vilanterol (Fluticasone/Umeclidinium/Vilanterol 200/62.5/25 Blst.W.Dev) 1 puff INHALE RDAILY [facility] Last Admin: 04/04/23 07:59 Dose: 1 puff Documented By: DU Folic Acid (Folic Acid 1 Mg Tablet) 1 mg PO DAILY [facility] Last Admin: 04/04/23 08:48 Dose: 1 mg Documented By: KARINE Furosemide (Furosemide 40 Mg Tablet) 40 mg PO DAILY [facility]; Protocol Last Admin: 04/04/23 08:48 Dose: 40 mg Documented By: KARINE Gabapentin (Gabapentin 300 Mg Capsule) 300 mg PO TID [facility] Last Admin: 04/04/23 08:47 Dose: 300 mg Documented By: KARINE Glucose (Glucose Gel 15 Gm Gel..Gram.) 15 gm PO Q15M PRN; Protocol PRN Reason: per Hypoglycemia Standing Ord. Remdesivir 100 mg/ Sodium (Chloride) 230 mls @ 115 mls/hr IV Q24H [facility] Stop: 04/05/23 14:59 Insulin Human Lispro (Insulin Lispro 100 Unit/Ml 3 Ml Vial) 0 unit SUBCUT QIDACHS [facility]; Protocol Last Admin: 04/04/23 11:57 Dose: 4 unit Documented By: KARINE Lactulose (Lactulose 20 Gm/30 Ml Solution) 10 gm PO DAILY [facility] Last Admin: 04/04/23 08:50 Dose: Not Given Documented By: KARINE Non-Admin Reason: Patient Refused Melatonin (Melatonin 3 Mg Tablet) 6 mg PO BEDTIME PRN PRN Reason: Insomnia Omeprazole (Omeprazole 20 Mg Capsule.Dr) 20 mg PO DAILY@0630 [facility] Last Admin: 04/04/23 05:48 Dose: 20 mg Documented By: ZUNILDA Ondansetron HCl (Ondansetron Hcl 4 Mg/2 Ml Vial) 4 mg IVPUSH Q8H PRN PRN Reason: Nausea and Vomiting Polyethylene Glycol (Polyethylene Glycol 3350 17 Gm Powd.Pack) 17 gm PO DAILY [facility] Last Admin: 04/04/23 08:50 Dose: Not Given Documented By: KARINE Non-Admin Reason: Patient Refused Quetiapine Fumarate (Quetiapine Fumarate 50 Mg Tablet) 50 mg PO TID [facility] Last Admin: 04/04/23 08:50 Dose: 50 mg Documented By: KARINE Senna (Sennosides 8.6 Mg Tablet) 17.2 mg PO BEDTIME [facility] Last Admin: 04/03/23 20:04 Dose: 17.2 mg Documented By: ZUNILDA Sertraline HCl (Sertraline Hcl 100 Mg Tablet) 100 mg PO DAILY [facility] Last Admin: 04/04/23 08:44 Dose: 100 mg Documented By: KARINE Sodium Chloride (0.9 % Sodium Chloride Flush 3 Ml Syringe) 3 ml IVFLUSH QSHIFT [facility] Last Admin: 04/04/23 08:49 Dose: 3 ml Documented By: KARINE Trazodone HCl (Trazodone Hcl 50 Mg Tablet) 50 mg PO BEDTIME [facility] Last Admin: 04/03/23 20:04 Dose: 50 mg Documented By: ZUNILDA Labs 04/03/23 07:48 04/03/23 07:48 Labs: Laboratory Results - last 24 hr 04/03/23 04/03/23 04/04/23 16:35 20:25 07:24 POC Glucose 167 H 162 H 144 H 04/04/23 11:17 POC Glucose 216 H Microbiology Microbiology Results: Microbiology 04/02/23 19:38 Blood Culture - Preliminary Blood - Venous No growth after 24 hours. 04/02/23 19:38 Blood Culture - Preliminary Blood - Venous No growth after 24 hours. Assessment and Plan (1) Hypoxia: Status: Acute (2) COVID-19: Status: Acute Plan 72-year-old male with a PMH significant for?CAD, [id number] diabetes type 2, who initially presented presents to the ED on 03/15/2023 from SNF after reportedly having hallucinations and being combative with staff. Pt was placed in physician observation in the ED until he became hypoxic and tested positive for COVID. Patient will be admitted to the hospital medical floor for treatment and further evaluation of acute hypoxic respiratory failure in the setting of COVID infection. Acute hypoxic respiratory failure in the setting COVID infection Clinically improving no shortness of breath, mild cough Continue IV dexamethasone, started 04/02/2023, and remdesivir started on 04/03/23- 04/05 Titrate supplemental O2 wean as tolerated, not on home oxygen Continue inhalers, DuoNeb as needed, cough medication, and GI prophylaxis with Prilosec Monitor respiratory status HTN Stable blood pressures Continue Carvedilol and follow BP CAD/HLD Continue statin, aspirin, Coreg and Plavix Mild persistence asthma no acute exacerbation Continue home inhalers Yoc-yurnjrh-ouxmnrike type 2 diabetes mild hyperglycemia due to steroids Hold metformin,,on sliding scale insulin and diabetic diet Mood disorder Continue home meds, being followed by Psychiatry. Morbid obesity recommend low-calorie diet. Disposition Pt followed by Case Management for vise hand placement. Full Code DVT Prophylaxis: Lovenox Pt will require continued inpatient hospitalization for?acute hypoxic respiratory failure in setting of COVID. Patient will require hospitalization for administration of IV steroids and supplemental oxygen. Quality Stroke Does the patient have a stroke diagnosis?: No VTE Prior VTE?: No VTE Risk Level:: Medical - moderate - high VTE Device Contraindication: Treatment Not Indicated VTE Drug Contraindication: N/A - Med Ordered
[2023-04-04] MEDS: Remdesivir 100 MG in 0.9 % Sodium Chloride 230 ML 115 MG IV (15:16)
[2023-04-04 16:22] LABS: Glucose, Whole Blood 190 mg/dL (60-115)
[2023-04-04] MEDS: traZODone HCL 50 MG TABLET PO (20:52)
[2023-04-04] MEDS: Sennosides 8.6 MG TABLET 17.2 MG PO (20:53)
[2023-04-04] MEDS: Atorvastatin Calcium 80 MG TABLET PO (20:53)
[2023-04-04] MEDS: Enoxaparin Sodium 40 MG/0.4 ML SYRINGE SUBCUT (20:54)
[2023-04-04 21:09] LABS: Glucose, Whole Blood 149 mg/dL (60-115)
[2023-04-04 21:15] LABS: Glucose, Whole Blood 147 mg/dL (60-115)
[2023-04-05 03:15] VITALS: BP 132/60; PULSE 53; RESP 20; TEMP 36.6; O2SAT 93
[2023-04-05] MEDS: Omeprazole 20 MG CAPSULE.DR PO (05:43)
[2023-04-05 07:47] LABS: Glucose, Whole Blood 170 mg/dL (60-115)
[2023-04-05 08:00] VITALS: BP 106/66; PULSE 50; RESP 20; TEMP 36.2; O2SAT 98
[2023-04-05 08:16] LABS: Glucose, Whole Blood 170 mg/dL (60-115)
[2023-04-05] MEDS: Insulin Lispro 100 UNIT/ML 3 ML VIAL SUBCUT ×4 (09:48→21:28)
[2023-04-05] MEDS: dexAMETHasone sod phosphate 4 MG/ML VIAL 6 MG IVPUSH (09:48)
[2023-04-05] MEDS: Docusate Sodium 100 MG CAPSULE PO ×2 (09:49→20:43)
[2023-04-05] MEDS: Sertraline HCL 100 MG TABLET PO (09:49)
[2023-04-05] MEDS: Aspirin Enteric Coated 81 MG TABLET.DR PO (09:49)
[2023-04-05] MEDS: Clopidogrel Bisulfate 75 MG TABLET PO (09:49)
[2023-04-05] MEDS: Benzonatate 100 MG CAPSULE 200 MG PO ×3 (09:49→20:43)
[2023-04-05] MEDS: Folic Acid 1 MG TABLET PO (09:49)
[2023-04-05] MEDS: carvediloL 3.125 MG TABLET PO ×2 (09:49→20:43)
[2023-04-05] MEDS: Gabapentin 300 MG CAPSULE PO ×3 (09:49→20:43)
[2023-04-05] MEDS: Acetaminophen 325 MG TABLET 975 MG PO ×3 (09:49→20:43)
[2023-04-05] MEDS: QUEtiapine Fumarate 50 MG TABLET PO ×3 (09:49→20:43)
[2023-04-05] MEDS: Furosemide 40 MG TABLET PO (09:49)
[2023-04-05] MEDS: 0.9 % Sodium Chloride Flush 3 ML SYRINGE IVFLUSH ×2 (09:51→23:23)
[2023-04-05 11:27] LABS: Glucose, Whole Blood 195 mg/dL (60-115)
[2023-04-05 11:48] VITALS: BP 121/63; PULSE 53; RESP 20; TEMP 36.1; O2SAT 95
--- NOTE | 2023-04-05 12:36 | P.PNIM_ITS ---
Subjective Subjective Date of Service: 04/05/23 Interval History: Being followed for COVID and hypoxia Patient awake alert offers no complaint of shortness of breath, no fevers, no chills, oxygenation stable at baseline on 2 L of oxygen, tolerating diet no nausea, no vomiting. Review of Systems All other system reviewed and negative Physical Exam 2 Vital Signs: Vital Signs: Last Vital Signs Temp 97 F 04/05/23 11:48 Pulse 53 04/05/23 11:48 Resp 20 04/05/23 11:48 BP 121/63 04/05/23 11:48 Pulse Ox 95 04/05/23 11:48 O2 Del Method Nasal Cannula 04/05/23 11:48 O2 Flow Rate 2 04/05/23 11:48 Oxygen Flow Rate 3 03/15/23 18:32 BMI result Body Mass Index 44.3 Const: Other: General awake alert, resting comfortably in no acute distress. Neck supple no JVD. CVS regular rate rhythm, Respiratory lungs clear to auscultation, no respiratory distress, no wheeze, no rhonchi. Gastrointestinal abdomen soft, non tender, bowel sounds audible,no guarding , no rigidity. Extremities no pitting edema. Neuro non focal, moving all 4 extremity, speech clear. Psych appropriate affect Objective Data Active Medications Acetaminophen (Acetaminophen 325 Mg Tablet) 975 mg PO TID [facility] Last Admin: 04/05/23 09:49 Dose: 975 mg Documented By: YUDY Al Hydroxide/Mg Hydroxide (Magnesium Hydrox/Alum Hydrox 30 Ml Oral.Susp) 30 ml PO Q6H PRN PRN Reason: dyspepsia Albuterol Sulfate (Albuterol Sulfate 90 Mcg 8 Gm Inhaler) 2 puff INHALE Q4H PRN PRN Reason: Wheezing Albuterol/Ipratropium (Albuterol/Iprat 2.5/0.5mg 3 Ml Ampul.Neb) 3 ml INHALE RQ4H WHILE AWAKE PRN PRN Reason: Shortness of Breath/Wheezing Aspirin (Aspirin Enteric Coated 81 Mg Tablet.) 81 mg PO DAILY [facility] Last Admin: 04/05/23 09:49 Dose: 81 mg Documented By: YUDY Atorvastatin Calcium (Atorvastatin Calcium 80 Mg Tablet) 80 mg PO BEDTIME [facility] Last Admin: 04/04/23 20:53 Dose: 80 mg Documented By: ARLEEN Benzonatate (Benzonatate 100 Mg Capsule) 200 mg PO TID [facility] Last Admin: 04/05/23 09:49 Dose: 200 mg Documented By: YUDY Carvedilol (Carvedilol 3.125 Mg Tablet) 3.125 mg PO BID [facility]; Protocol Last Admin: 04/05/23 09:49 Dose: 3.125 mg Documented By: YUDY Clopidogrel Bisulfate (Clopidogrel Bisulfate 75 Mg Tablet) 75 mg PO DAILY [facility] Last Admin: 04/05/23 09:49 Dose: 75 mg Documented By: YUDY Cyanocobalamin (Cyanocobalamin (Vitamin B-12) 1,000 Mcg/Ml Vial) 1,000 mcg IM Q30D [facility] Dexamethasone Sodium Phosphate (Dexamethasone Sod Phosphate 4 Mg/Ml Vial) 6 mg IVPUSH DAILY [facility] Last Admin: 04/05/23 09:48 Dose: 6 mg Documented By: YUDY Dextrose (Dextrose 50 % 25 Gm/50 Ml Syringe) 25 gm IVPUSH Q15M PRN; Protocol PRN Reason: per Hypoglycemia Standing Ord. Docusate Sodium (Docusate Sodium 100 Mg Capsule) 100 mg PO BID [facility] Last Admin: 04/05/23 09:49 Dose: 100 mg Documented By: YUDY Enoxaparin Sodium (Enoxaparin Sodium 40 Mg/0.4 Ml Syringe) 40 mg SUBCUT Q24H [facility] Last Admin: 04/04/23 20:54 Dose: 40 mg Documented By: ARLEEN Fluticasone/Umeclidinium/Vilanterol (Fluticasone/Umeclidinium/Vilanterol 200/62.5/25 Blst.W.Dev) 1 puff INHALE RDAILY [facility] Last Admin: 04/04/23 07:59 Dose: 1 puff Documented By: DU Folic Acid (Folic Acid 1 Mg Tablet) 1 mg PO DAILY [facility] Last Admin: 04/05/23 09:49 Dose: 1 mg Documented By: YUDY Furosemide (Furosemide 40 Mg Tablet) 40 mg PO DAILY [facility]; Protocol Last Admin: 04/05/23 09:49 Dose: 40 mg Documented By: YUDY Gabapentin (Gabapentin 300 Mg Capsule) 300 mg PO TID [facility] Last Admin: 04/05/23 09:49 Dose: 300 mg Documented By: YUDY Glucose (Glucose Gel 15 Gm Gel..Gram.) 15 gm PO Q15M PRN; Protocol PRN Reason: per Hypoglycemia Standing Ord. Remdesivir 100 mg/ Sodium (Chloride) 230 mls @ 115 mls/hr IV Q24H [facility] Stop: 04/05/23 14:59 Last Infusion: 04/04/23 18:04 Dose: Infused Documented By: LETHATEKWilton Insulin Human Lispro (Insulin Lispro 100 Unit/Ml 3 Ml Vial) 0 unit SUBCUT QIDACHS [facility]; Protocol Last Admin: 04/05/23 09:48 Dose: 2 unit Documented By: YUDY Lactulose (Lactulose 20 Gm/30 Ml Solution) 10 gm PO DAILY [facility] Last Admin: 04/05/23 09:50 Dose: Not Given Documented By: YUDY Non-Admin Reason: loose stools x2 Melatonin (Melatonin 3 Mg Tablet) 6 mg PO BEDTIME PRN PRN Reason: Insomnia Omeprazole (Omeprazole 20 Mg Capsule.) 20 mg PO DAILY@0630 [facility] Last Admin: 04/05/23 05:43 Dose: 20 mg Documented By: ARLEEN Ondansetron HCl (Ondansetron Hcl 4 Mg/2 Ml Vial) 4 mg IVPUSH Q8H PRN PRN Reason: Nausea and Vomiting Polyethylene Glycol (Polyethylene Glycol 3350 17 Gm Powd.Pack) 17 gm PO DAILY [facility] Last Admin: 04/05/23 09:51 Dose: Not Given Documented By: YUDY Non-Admin Reason: loose stools Quetiapine Fumarate (Quetiapine Fumarate 50 Mg Tablet) 50 mg PO TID [facility] Last Admin: 04/05/23 09:49 Dose: 50 mg Documented By: YUDY Senna (Sennosides 8.6 Mg Tablet) 17.2 mg PO BEDTIME [facility] Last Admin: 04/04/23 20:53 Dose: 17.2 mg Documented By: ARLEEN Sertraline HCl (Sertraline Hcl 100 Mg Tablet) 100 mg PO DAILY [facility] Last Admin: 04/05/23 09:49 Dose: 100 mg Documented By: YUDY Sodium Chloride (0.9 % Sodium Chloride Flush 3 Ml Syringe) [address] [facility] Last Admin: 04/05/23 09:51 Dose: 3 ml Documented By: YUDY Trazodone HCl (Trazodone Hcl 50 Mg Tablet) 50 mg PO BEDTIME [facility] Last Admin: 04/04/23 20:52 Dose: 50 mg Documented By: ARLEEN Labs 04/03/23 07:48 04/03/23 07:48 Labs: Laboratory Results - last 24 hr 04/04/23 04/04/23 04/04/23 16:15 19:52 21:11 POC Glucose 190 H 149 H 147 H 04/05/23 04/05/23 04/05/23 07:43 08:11 11:11 POC Glucose 170 H 170 H 195 H Microbiology Microbiology Results: Microbiology 04/02/23 19:38 Blood Culture - Preliminary Blood - Venous No growth after 48 hours. 04/02/23 19:38 Blood Culture - Preliminary Blood - Venous No growth after 48 hours. Assessment and Plan (1) Hypoxia: Status: Acute (2) COVID-19: Status: Acute Plan 72-year-old male with a PMH significant for?CAD, [id number]-mywuwviam diabetes type 2, who initially presented presents to the ED on 03/15/2023 from [facility] after reportedly having hallucinations and being combative with staff. Pt was placed in physician observation in the ED until he became hypoxic and tested positive for COVID. Patient will be admitted to the hospital medical floor for treatment and further evaluation of acute hypoxic respiratory failure in the setting of COVID infection. Acute hypoxic respiratory failure in the setting COVID infection no shortness of breath, cough improving on IV dexamethasone, started 04/02/2023, will transition to by mouth, on remdesivir 04/03/23- 04/05 Titrate supplemental O2 wean as tolerated, as as pt. on 2 L of home oxygen Continue inhalers, DuoNeb as needed, cough medication, and GI prophylaxis with Prilosec Monitor respiratory status HTN Stable blood pressures Continue Carvedilol and follow BP CAD/HLD Continue statin, aspirin, Coreg and Plavix Mild persistence asthma no acute exacerbation Continue home inhalers Csn-onwipdp-qaorqsmqf type 2 diabetes mild hyperglycemia due to steroids Hold metformin,,on sliding scale insulin and diabetic diet Mood disorder Continue home meds, being followed by Psychiatry. Morbid obesity recommend low-calorie diet. Disposition Pt followed by Case Management for lobsterman placement. Full Code DVT Prophylaxis: Lovenox Pt will require continued inpatient hospitalization for?acute hypoxic respiratory failure in setting of COVID. Need safe disposition will discuss with CM. Quality Stroke Does the patient have a stroke diagnosis?: No VTE Prior VTE?: No VTE Risk Level:: Medical - moderate - high VTE Device Contraindication: Treatment Not Indicated VTE Drug Contraindication: N/A - Med Ordered
[2023-04-05] MEDS: ondansetron HCL 4 MG/2 ML VIAL IVPUSH (12:43)
[2023-04-05] MEDS: Remdesivir 100 MG in 0.9 % Sodium Chloride 230 ML 115 MG IV (13:03)
[2023-04-05 16:00] VITALS: BP 135/63; PULSE 54; RESP 16; TEMP 36.1; O2SAT 98
[2023-04-05 16:43] LABS: Glucose, Whole Blood 191 mg/dL (60-115)
[2023-04-05 20:00] VITALS: BP 140/70; PULSE 51; RESP 18; TEMP 36.2; O2SAT 97
[2023-04-05] MEDS: traZODone HCL 50 MG TABLET PO (20:43)
[2023-04-05] MEDS: Enoxaparin Sodium 40 MG/0.4 ML SYRINGE SUBCUT (20:43)
[2023-04-05] MEDS: Atorvastatin Calcium 80 MG TABLET PO (20:43)
[2023-04-05 21:11] LABS: Glucose, Whole Blood 177 mg/dL (60-115)
[2023-04-06 03:22] VITALS: BP 134/68; PULSE 59; RESP 18; TEMP 37.1; O2SAT 98
[2023-04-06] MEDS: Omeprazole 20 MG CAPSULE.DR PO (06:11)
[2023-04-06 07:33] VITALS: BP 146/57; PULSE 55; RESP 18; TEMP 36.1; O2SAT 96
[2023-04-06] MEDS: Fluticasone/Umeclidinium/Vilanterol 200/62.5/25 BLST.W.DEV 1 PUFF INHALE (07:53)
[2023-04-06 07:55] VITALS: PULSE 57; RESP 16; O2SAT 96
[2023-04-06] MEDS: Lactulose 20 GM/30 ML SOLUTION 10 GM PO (09:00)
--- NOTE | 2023-04-06 09:08 | MHC.CM.PN ---
SNF referral updated in [facility], no current bed offers at this time. Referral faxed to [facility] at [phone], and this CM spoke to Chyna in admissions about the pt. Chyna states there is currently a wait list for their facility, but they will review pts information.
[2023-04-06 09:20] LABS: Glucose, Whole Blood 121 mg/dL (60-115)
[2023-04-06] MEDS: Furosemide 40 MG TABLET PO (09:31)
[2023-04-06] MEDS: Gabapentin 300 MG CAPSULE PO ×3 (09:31→20:49)
[2023-04-06] MEDS: Acetaminophen 325 MG TABLET 975 MG PO ×3 (09:31→20:49)
[2023-04-06] MEDS: Docusate Sodium 100 MG CAPSULE PO ×2 (09:31→20:49)
[2023-04-06] MEDS: carvediloL 3.125 MG TABLET PO ×2 (09:31→20:49)
[2023-04-06] MEDS: Clopidogrel Bisulfate 75 MG TABLET PO (09:31)
[2023-04-06] MEDS: Folic Acid 1 MG TABLET PO (09:31)
[2023-04-06] MEDS: Benzonatate 100 MG CAPSULE 200 MG PO ×3 (09:32→20:49)
[2023-04-06] MEDS: QUEtiapine Fumarate 50 MG TABLET PO ×3 (09:32→20:49)
[2023-04-06] MEDS: dexAMETHasone 6 MG TABLET PO (09:32)
[2023-04-06] MEDS: Aspirin Enteric Coated 81 MG TABLET.DR PO (09:32)
[2023-04-06] MEDS: polyethylene glycoL 3350 17 GM POWD.PACK PO (09:32)
[2023-04-06] MEDS: Sertraline HCL 100 MG TABLET PO (09:32)
[2023-04-06] MEDS: 0.9 % Sodium Chloride Flush 3 ML SYRINGE IVFLUSH ×3 (09:32→20:49)
[2023-04-06 12:04] LABS: Glucose, Whole Blood 181 mg/dL (60-115)
--- NOTE | 2023-04-06 12:19 | P.PNIM_ITS ---
Subjective Subjective Date of Service: 04/06/23 Interval History: Being followed for acute hypoxic respiratory failure due to COVID Patient offers no acute complaints no shortness of breath, no cough ,no fevers, no chills, no acute events overnight. Review of Systems All other system reviewed and negative. Physical Exam 2 Vital Signs: Vital Signs: Last Vital Signs Temp 96.9 F 04/06/23 07:33 Pulse 57 04/06/23 07:55 Resp 16 04/06/23 07:55 BP 146/57 H 04/06/23 07:33 Pulse Ox 96 04/06/23 07:33 O2 Del Method Nasal Cannula 04/06/23 07:33 O2 Flow Rate 2 04/06/23 07:33 Oxygen Flow Rate 3 03/15/23 18:32 BMI result Body Mass Index 44.3 Const: Other: General awake alert, resting comfortably in no acute distress. Neck supple no JVD. CVS regular rate rhythm, Respiratory lungs clear to auscultation, no respiratory distress, no wheeze, no rhonchi. Gastrointestinal abdomen soft, non tender, bowel sounds audible,no guarding , no rigidity. Extremities no pitting edema. Neuro non focal, moving all 4 extremity, speech clear. Psych appropriate affect Objective Data Active Medications Acetaminophen (Acetaminophen 325 Mg Tablet) 975 mg PO TID [facility] Last Admin: 04/06/23 09:31 Dose: 975 mg Documented By: JEROMY Al Hydroxide/Mg Hydroxide (Magnesium Hydrox/Alum Hydrox 30 Ml Oral.Susp) 30 ml PO Q6H PRN PRN Reason: dyspepsia Albuterol Sulfate (Albuterol Sulfate 90 Mcg 8 Gm Inhaler) 2 puff INHALE Q4H PRN PRN Reason: Wheezing Albuterol/Ipratropium (Albuterol/Iprat 2.5/0.5mg 3 Ml Ampul.Neb) 3 ml INHALE RQ4H WHILE AWAKE PRN PRN Reason: Shortness of Breath/Wheezing Aspirin (Aspirin Enteric Coated 81 Mg Tablet.) 81 mg PO DAILY [facility] Last Admin: 04/06/23 09:32 Dose: 81 mg Documented By: JEROMY Atorvastatin Calcium (Atorvastatin Calcium 80 Mg Tablet) 80 mg PO BEDTIME [facility] Last Admin: 04/05/23 20:43 Dose: 80 mg Documented By: FERMIN Benzonatate (Benzonatate 100 Mg Capsule) 200 mg PO TID [facility] Last Admin: 04/06/23 09:32 Dose: 200 mg Documented By: JEROMY Carvedilol (Carvedilol 3.125 Mg Tablet) 3.125 mg PO BID [facility]; Protocol Last Admin: 04/06/23 09:31 Dose: 3.125 mg Documented By: JEROMY Clopidogrel Bisulfate (Clopidogrel Bisulfate 75 Mg Tablet) 75 mg PO DAILY [facility] Last Admin: 04/06/23 09:31 Dose: 75 mg Documented By: JEROMY Cyanocobalamin (Cyanocobalamin (Vitamin B-12) 1,000 Mcg/Ml Vial) 1,000 mcg IM Q30D [facility] Dexamethasone (Dexamethasone 6 Mg Tablet) 6 mg PO DAILY [facility] Last Admin: 04/06/23 09:32 Dose: 6 mg Documented By: JEROMY Dextrose (Dextrose 50 % 25 Gm/50 Ml Syringe) 25 gm IVPUSH Q15M PRN; Protocol PRN Reason: per Hypoglycemia Standing Ord. Docusate Sodium (Docusate Sodium 100 Mg Capsule) 100 mg PO BID [facility] Last Admin: 04/06/23 09:31 Dose: 100 mg Documented By: JEROMY Enoxaparin Sodium (Enoxaparin Sodium 40 Mg/0.4 Ml Syringe) 40 mg SUBCUT Q24H [facility] Last Admin: 04/05/23 20:43 Dose: 40 mg Documented By: FERMIN Fluticasone/Umeclidinium/Vilanterol (Fluticasone/Umeclidinium/Vilanterol 200/62.5/25 Blst.W.Dev) 1 puff INHALE RDAILY [facility] Last Admin: 04/06/23 07:53 Dose: 1 puff Documented By: ANITA Folic Acid (Folic Acid 1 Mg Tablet) 1 mg PO DAILY [facility] Last Admin: 04/06/23 09:31 Dose: 1 mg Documented By: JEROMY Furosemide (Furosemide 40 Mg Tablet) 40 mg PO DAILY [facility]; Protocol Last Admin: 04/06/23 09:31 Dose: 40 mg Documented By: JEROMY Gabapentin (Gabapentin 300 Mg Capsule) 300 mg PO TID [facility] Last Admin: 04/06/23 09:31 Dose: 300 mg Documented By: JEROMY Glucose (Glucose Gel 15 Gm Gel..Gram.) 15 gm PO Q15M PRN; Protocol PRN Reason: per Hypoglycemia Standing Ord. Insulin Human Lispro (Insulin Lispro 100 Unit/Ml 3 Ml Vial) 0 unit SUBCUT QIDACHS [facility]; Protocol Last Admin: 04/06/23 09:26 Dose: Not Given Documented By: JEROMY Non-Admin Reason: No Insulin Coverage Lactulose (Lactulose 20 Gm/30 Ml Solution) 10 gm PO DAILY [facility] Last Admin: 04/05/23 09:50 Dose: Not Given Documented By: YUDY Non-Admin Reason: loose stools x2 Melatonin (Melatonin 3 Mg Tablet) 6 mg PO BEDTIME PRN PRN Reason: Insomnia Omeprazole (Omeprazole 20 Mg Capsule.Dr) 20 mg PO DAILY@0630 [facility] Last Admin: 04/06/23 06:11 Dose: 20 mg Documented By: SARIKA Ondansetron HCl (Ondansetron Hcl 4 Mg/2 Ml Vial) 4 mg IVPUSH Q8H PRN PRN Reason: Nausea and Vomiting Last Admin: 04/05/23 12:43 Dose: 4 mg Documented By: FERMIN Polyethylene Glycol (Polyethylene Glycol 3350 17 Gm Powd.Pack) 17 gm PO DAILY [facility] Last Admin: 04/06/23 09:32 Dose: 17 gm Documented By: JEROMY Quetiapine Fumarate (Quetiapine Fumarate 50 Mg Tablet) 50 mg PO TID [facility] Last Admin: 04/06/23 09:32 Dose: 50 mg Documented By: JEROMY Senna (Sennosides 8.6 Mg Tablet) 17.2 mg PO BEDTIME [facility] Last Admin: 04/05/23 20:44 Dose: Not Given Documented By: FERMIN Non-Admin Reason: large bm earlier Sertraline HCl (Sertraline Hcl 100 Mg Tablet) 100 mg PO DAILY [facility] Last Admin: 04/06/23 09:32 Dose: 100 mg Documented By: JEROMY Sodium Chloride (0.9 % Sodium Chloride Flush 3 Ml Syringe) 3 ml IVFLUSH QSHIFT [facility] Last Admin: 04/06/23 09:32 Dose: 3 ml Documented By: JEROMY Trazodone HCl (Trazodone Hcl 50 Mg Tablet) 50 mg PO BEDTIME [facility] Last Admin: 04/05/23 20:43 Dose: 50 mg Documented By: FERMIN Labs 04/03/23 07:48 04/03/23 07:48 Labs: Laboratory Results - last 24 hr 04/05/23 04/05/23 04/06/23 16:26 21:01 07:38 POC Glucose 191 H 177 H 121 H 04/06/23 11:12 POC Glucose 181 H Assessment and Plan (1) Hypoxia: Status: Acute (2) COVID-19: Status: Acute Plan 72-year-old male with a PMH significant for?CAD, mzs-wbgxwxa-[id number] diabetes type 2, who initially presented presents [facility] the ED [facility] after reportedly having hallucinations and being combative with staff. Pt was placed in physician observation in the ED until he became hypoxic and tested positive for COVID. Patient will be admitted to the hospital medical floor for treatment and further evaluation of acute hypoxic respiratory failure in the setting of COVID infection. Acute hypoxic respiratory failure in the setting COVID infection no shortness of breath, cough improving on po dexamethasone, started 04/02/2023, finished course of remdesivir 04/03/23- 04/05 Titrate supplemental O2 wean as tolerated, as as pt. on 2 L of home oxygen Continue inhalers, DuoNeb as needed, cough medication, and GI prophylaxis with Prilosec Monitor respiratory status HTN Stable blood pressures Continue Carvedilol and follow BP CAD/HLD Continue statin, aspirin, Coreg and Plavix, check lipid profile Mild persistence asthma no acute exacerbation Continue home inhalers Ivh-brufobf-bpkggczpn type 2 diabetes mild hyperglycemia due to steroids Hold metformin,,on sliding scale insulin and diabetic diet Mood disorder Continue home meds, being followed by Psychiatry. Morbid obesity recommend low-calorie diet. Disposition followed by Case Management for buttermaker continuous churn placement. Full Code DVT Prophylaxis: Lovenox Pt will require continued inpatient hospitalization for?acute hypoxic respiratory failure in setting of COVID. Need safe disposition CM arranging for long-term care placement. Quality Stroke Does the patient have a stroke diagnosis?: No VTE Prior VTE?: No VTE Risk Level:: Medical - moderate - high VTE Device Contraindication: Treatment Not Indicated VTE Drug Contraindication: N/A - Med Ordered
[2023-04-06] MEDS: Insulin Lispro 100 UNIT/ML 3 ML VIAL SUBCUT ×2 (12:39→16:32)
[2023-04-06 16:00] VITALS: BP 131/60; PULSE 55; RESP 18; TEMP 36.2; O2SAT 92
[2023-04-06 16:22] LABS: Glucose, Whole Blood 261 mg/dL (60-115)
[2023-04-06 20:00] VITALS: BP 129/63; PULSE 61; RESP 20; TEMP 36.4; O2SAT 95
[2023-04-06] MEDS: Enoxaparin Sodium 40 MG/0.4 ML SYRINGE SUBCUT (20:48)
[2023-04-06] MEDS: Atorvastatin Calcium 80 MG TABLET PO (20:49)
[2023-04-06] MEDS: traZODone HCL 50 MG TABLET PO (20:49)
[2023-04-06] MEDS: Sennosides 8.6 MG TABLET 17.2 MG PO (20:49)
[2023-04-06 21:28] LABS: Glucose, Whole Blood 177 mg/dL (60-115)
[2023-04-07 00:31] VITALS: BP 127/59; PULSE 54; RESP 20; TEMP 36.2; O2SAT 95
[2023-04-07 04:00] VITALS: BP 112/58; PULSE 52; RESP 18; TEMP 36.1; O2SAT 98
[2023-04-07 06:22] LABS: Anion Gap 10 (12-20); Blood Urea Nitrogen 34 mg/dL (9-16); Calcium 9.2 mg/dL (8.4-10.2); Carbon Dioxide 37 mmol/L (22-29); Chloride 99 mmol/L (96-108); Cholesterol 101 mg/dL (<200); Creatinine Clr Calc Pharmacy 79.1; Estimated Glomerular Filt Rate 56; Glucose Random 159 mg/dL (60-115); HDL Cholesterol 29 mg/dL (>40); LDL Cholesterol Calculated 52 mg/dL (<100); Potassium 4.9 mmol/L (3.3-5.1); Sodium 141 mmol/L (135-145); Triglycerides 103 mg/dL (<150)
[2023-04-07 08:00] VITALS: BP 112/58; PULSE 52; RESP 18; TEMP 36.1; O2SAT 98
[2023-04-07 08:00] LABS: Glucose, Whole Blood 149 mg/dL (60-115)
[2023-04-07] MEDS: Benzonatate 100 MG CAPSULE 200 MG PO ×3 (08:03→20:00)
[2023-04-07] MEDS: polyethylene glycoL 3350 17 GM POWD.PACK PO (08:03)
[2023-04-07] MEDS: QUEtiapine Fumarate 50 MG TABLET PO ×3 (08:04→20:01)
[2023-04-07] MEDS: Folic Acid 1 MG TABLET PO (08:04)
[2023-04-07] MEDS: Furosemide 40 MG TABLET PO (08:04)
[2023-04-07] MEDS: Docusate Sodium 100 MG CAPSULE PO ×2 (08:04→20:01)
[2023-04-07] MEDS: dexAMETHasone 6 MG TABLET PO (08:04)
[2023-04-07] MEDS: Aspirin Enteric Coated 81 MG TABLET.DR PO (08:04)
[2023-04-07] MEDS: carvediloL 3.125 MG TABLET PO ×2 (08:05→20:00)
[2023-04-07] MEDS: Gabapentin 300 MG CAPSULE PO ×3 (08:05→20:00)
[2023-04-07] MEDS: Clopidogrel Bisulfate 75 MG TABLET PO (08:05)
[2023-04-07] MEDS: Sertraline HCL 100 MG TABLET PO (08:05)
[2023-04-07] MEDS: 0.9 % Sodium Chloride Flush 3 ML SYRINGE IVFLUSH ×2 (08:39→20:01)
[2023-04-07 08:49] VITALS: PULSE 61; RESP 18; O2SAT 97
[2023-04-07] MEDS: Omeprazole 20 MG CAPSULE.DR PO (08:49)
[2023-04-07] MEDS: Fluticasone/Umeclidinium/Vilanterol 200/62.5/25 BLST.W.DEV 1 PUFF INHALE (08:49)
[2023-04-07 10:29] LABS: Glucose, Whole Blood 167 mg/dL (60-115)
--- NOTE | 2023-04-07 11:23 | MHC.SL.SWA ---
Risk of Aspiration Due to: ? Cognition Dysphasia Diet Status: No change Liquid Consistency and Strategies for Safe Swallow: Liquid Intake Recommendation: Thin Liquid Intake Strategies: Unrestricted Solid Food Consistency: Dietary Recommendations: Regular Additional Modifications to Solid Foods: Moisten w/ sauce/gravy Oral Medication Intake: Whole with Liquid Please contact the pharmacy regarding appropriate crushable or liquid drug formulations that are available whenever modified delivery is recommended. Compensatory Strategies and Precautions to be Taken for Safe Swallow: Sitting Upright (90 deg) Small Bites and Sips Alternate Liquids/Solids Rate of Ingestion Change Avoid Specific Foods Supervision While Eating and Drinking for Safe Swallow: Total Supervision (1:1) Foods to Avoid: Dry, tough to chew, sticky foods Recommendation for Speech: Inpatient Speech Therapy Comment: Recommend patient continue with REGULAR solids and THIN liquids. Pills WHOLE in liquid. Recommendations to decrease risk of aspiration: alternate liquids/solids, drink from cup to assist w/ residue clearance, small bites, slow rate of ingestion. Discussed recommendations w/ patient and patient was agreeable. Supervision recommended to support recommended strategies and assist w/ tray set up and navigation as needed. Recommend cognitive screening w/ DOORMAKER. RN, RD, and MD provided recommendations via [place]. Frequency/Duration: M-F during hospitalization Certified Court Interpreter Clinican/Clinical Fellow: No Supervisory Statement: I have reviewed and agree with the student/clinical fellow's documentation: N/A Speech Language Pathologist: Cyndi Patricia M.A., CCC-DOORMAKER
--- NOTE | 2023-04-07 12:12 | MHC.CM.PN ---
Received message from Elena Pretty that their copy director will be in to see pt tomorrow (04/08).
--- NOTE | 2023-04-07 12:13 | MHC.CM.PN ---
Received a phone call from Kalpana from the ID, she wanted to know why we [facility]. This CM explained that it appears we were not aware that this pt was [facility]. Per Kalpana, the pt is [facility] and ID # is [id number]. Kalpana requested that H&P, and progress notes be faxed to her by this CM. This CM explained that we are in the process of a LTC bed search for this pt.
[2023-04-07] MEDS: Insulin Lispro 100 UNIT/ML 3 ML VIAL SUBCUT ×3 (12:41→20:01)
--- NOTE | 2023-04-07 13:28 | P.PNIM_ITS ---
Subjective Subjective Date of Service: 04/07/23 Interval History: Being followed for COVID infection and need for long-term care placement Patient had an episode of aspiration while eating dinner last night, no issues this morning, seen by speech therapist and they recommend to continue regular solids and thin liquids, denies shortness of breath, no cough, no nausea, no vomiting ,tolerating diet, no abdominal pain no acute events overnight. Review of Systems All other system reviewed and negative. Physical Exam 2 Vital Signs: Vital Signs: Last Vital Signs Temp 97.0 F 04/07/23 04:00 Pulse 61 04/07/23 08:49 Resp 18 04/07/23 08:49 BP 112/58 L 04/07/23 04:00 Pulse Ox 98 04/07/23 04:00 O2 Del Method Nasal Cannula 04/07/23 04:00 O2 Flow Rate 2 04/07/23 04:00 Oxygen Flow Rate 3 03/15/23 18:32 BMI result Body Mass Index 44.3 Const: Other: General awake alert, resting comfortably in no acute distress. Neck supple no JVD. CVS regular rate rhythm, Respiratory lungs clear to auscultation, no respiratory distress, no wheeze, no rhonchi. Gastrointestinal abdomen soft, non tender, bowel sounds audible,no guarding , no rigidity. Extremities no pitting edema. Neuro non focal, moving all 4 extremity, speech clear. Psych appropriate affect [place] catheter Objective Data Active Medications Acetaminophen (Acetaminophen 325 Mg Tablet) 975 mg PO TID [facility] Last Admin: 04/07/23 08:37 Dose: Not Given Documented By: YUDY Non-Admin Reason: max dose almost reached Al Hydroxide/Mg Hydroxide (Magnesium Hydrox/Alum Hydrox 30 Ml Oral.Susp) 30 ml PO Q6H PRN PRN Reason: dyspepsia Albuterol Sulfate (Albuterol Sulfate 90 Mcg 8 Gm Inhaler) 2 puff INHALE Q4H PRN PRN Reason: Wheezing Albuterol/Ipratropium (Albuterol/Iprat 2.5/0.5mg 3 Ml Ampul.Neb) 3 ml INHALE RQ4H WHILE AWAKE PRN PRN Reason: Shortness of Breath/Wheezing Aspirin (Aspirin Enteric Coated 81 Mg Tablet.Dr) 81 mg PO DAILY [facility] Last Admin: 04/07/23 08:04 Dose: 81 mg Documented By: YUDY Atorvastatin Calcium (Atorvastatin Calcium 80 Mg Tablet) 80 mg PO BEDTIME [facility] Last Admin: 04/06/23 20:49 Dose: 80 mg Documented By: ZUNILDA Benzonatate (Benzonatate 100 Mg Capsule) 200 mg PO TID [facility] Last Admin: 04/07/23 08:03 Dose: 200 mg Documented By: YUDY Carvedilol (Carvedilol 3.125 Mg Tablet) 3.125 mg PO BID [facility]; Protocol Last Admin: 04/07/23 08:05 Dose: 3.125 mg Documented By: YUDY Clopidogrel Bisulfate (Clopidogrel Bisulfate 75 Mg Tablet) 75 mg PO DAILY [facility] Last Admin: 04/07/23 08:05 Dose: 75 mg Documented By: YUDY Cyanocobalamin (Cyanocobalamin (Vitamin B-12) 1,000 Mcg/Ml Vial) 1,000 mcg IM Q30D [facility] Dexamethasone (Dexamethasone 6 Mg Tablet) 6 mg PO DAILY [facility] Last Admin: 04/07/23 08:04 Dose: 6 mg Documented By: YUDY Dextrose (Dextrose 50 % 25 Gm/50 Ml Syringe) 25 gm IVPUSH Q15M PRN; Protocol PRN Reason: per Hypoglycemia Standing Ord. Docusate Sodium (Docusate Sodium 100 Mg Capsule) 100 mg PO BID [facility] Last Admin: 04/07/23 08:04 Dose: 100 mg Documented By: YUDY Enoxaparin Sodium (Enoxaparin Sodium 40 Mg/0.4 Ml Syringe) 40 mg SUBCUT Q24H [facility] Last Admin: 04/06/23 20:48 Dose: 40 mg Documented By: ZUNILDA Fluticasone/Umeclidinium/Vilanterol (Fluticasone/Umeclidinium/Vilanterol 200/62.5/25 Blst.W.Dev) 1 puff INHALE RDAILY [facility] Last Admin: 04/07/23 08:49 Dose: 1 puff Documented By: YANN Folic Acid (Folic Acid 1 Mg Tablet) 1 mg PO DAILY [facility] Last Admin: 04/07/23 08:04 Dose: 1 mg Documented By: YUDY Furosemide (Furosemide 40 Mg Tablet) 40 mg PO DAILY [facility]; Protocol Last Admin: 04/07/23 08:04 Dose: 40 mg Documented By: YUDY Gabapentin (Gabapentin 300 Mg Capsule) 300 mg PO TID [facility] Last Admin: 04/07/23 08:05 Dose: 300 mg Documented By: YUDY Glucose (Glucose Gel 15 Gm Gel..Gram.) 15 gm PO Q15M PRN; Protocol PRN Reason: per Hypoglycemia Standing Ord. Insulin Human Lispro (Insulin Lispro 100 Unit/Ml 3 Ml Vial) 0 unit SUBCUT QIDACHS [facility]; Protocol Last Admin: 04/07/23 12:41 Dose: 2 unit Documented By: YUDY Lactulose (Lactulose 20 Gm/30 Ml Solution) 10 gm PO DAILY [facility] Last Admin: 04/07/23 08:37 Dose: Not Given Documented By: YUDY Non-Admin Reason: pt had BM Melatonin (Melatonin 3 Mg Tablet) 6 mg PO BEDTIME PRN PRN Reason: Insomnia Omeprazole (Omeprazole 20 Mg Capsule.Dr) 20 mg PO DAILY@0630 [facility] Last Admin: 04/07/23 08:49 Dose: 20 mg Documented By: YUDY Ondansetron HCl (Ondansetron Hcl 4 Mg/2 Ml Vial) 4 mg IVPUSH Q8H PRN PRN Reason: Nausea and Vomiting Last Admin: 04/05/23 12:43 Dose: 4 mg Documented By: FERMIN Polyethylene Glycol (Polyethylene Glycol 3350 17 Gm Powd.Pack) 17 gm PO DAILY [facility] Last Admin: 04/07/23 08:03 Dose: 17 gm Documented By: YUDY Quetiapine Fumarate (Quetiapine Fumarate 50 Mg Tablet) 50 mg PO TID [facility] Last Admin: 04/07/23 08:04 Dose: 50 mg Documented By: YUDY Senna (Sennosides 8.6 Mg Tablet) 17.2 mg PO BEDTIME [facility] Last Admin: 04/06/23 20:49 Dose: 17.2 mg Documented By: ZUNILDA Sertraline HCl (Sertraline Hcl 100 Mg Tablet) 100 mg PO DAILY [facility] Last Admin: 04/07/23 08:05 Dose: 100 mg Documented By: YUDY Sodium Chloride (0.9 % Sodium Chloride Flush 3 Ml Syringe) 3 ml IVFLUSH QSHIFT [facility] Last Admin: 04/07/23 08:39 Dose: 3 ml Documented By: YUDY Trazodone HCl (Trazodone Hcl 50 Mg Tablet) 50 mg PO BEDTIME [facility] Last Admin: 04/06/23 20:49 Dose: 50 mg Documented By: ZUNILDA Labs 04/03/23 07:48 04/07/23 06:00 Labs: Laboratory Results - last 24 hr 04/06/23 04/06/23 04/07/23 16:02 21:11 06:00 Anion Gap 10 L Estim Creat Clear Calc 79.1 Estimated GFR 56 POC Glucose 261 H 177 H Random Glucose 159 H Calcium 9.2 Triglycerides 103 Cholesterol 101 LDL Cholesterol, Calc 52 HDL Cholesterol 29 L 04/07/23 04/07/23 07:56 10:25 Anion Gap Estim Creat Clear Calc Estimated GFR POC Glucose 149 H 167 H Random Glucose Calcium Triglycerides Cholesterol LDL Cholesterol, Calc HDL Cholesterol Assessment and Plan (1) Hypoxia: Status: Acute (2) COVID-19: Status: Acute Plan 72-year-old male with a PMH significant for?CAD, nae-bwinkgp-quhxiceeh diabetes type 2, who initially presented presents to the ED on 03/15/2023 from SNF after reportedly having hallucinations and being combative with staff. Pt was placed in physician observation in the ED until he became hypoxic and tested positive for COVID. Patient will be admitted to the hospital medical floor for treatment and further evaluation of acute hypoxic respiratory failure in the setting of COVID infection. Acute hypoxic respiratory failure in the setting COVID infection no shortness of breath, cough improving on po dexamethasone, started 04/02/2023 thru 04/12 , finished course of remdesivir 04/03/23- 04/05 o2 weaned to 2L , on home oxygen 2 L Continue inhalers, DuoNeb as needed, cough medication, and GI prophylaxis with Prilosec. Monitor respiratory status HTN Stable blood pressures Continue Carvedilol and follow BP CAD/HLD Continue statin, aspirin, Coreg and Plavix, ldl 52 / t.chol 101, will decrease dose of statin to 40 mg Mild persistence asthma no acute exacerbation Continue home inhalers Lin-cfcfydp-spgvfaywb type 2 diabetes mild hyperglycemia due to steroids Hold metformin,,on sliding scale insulin and diabetic diet Mood disorder Continue meds, as ordered by Psychiatry. Morbid obesity recommend low-calorie diet. Disposition followed by Case Management for snf placement. Full Code DVT Prophylaxis: Lovenox Pt will require continued inpatient hospitalization for?acute hypoxic respiratory failure in setting of COVID. Need safe disposition CM arranging for long-term care placement. Quality Stroke Does the patient have a stroke diagnosis?: No VTE Prior VTE?: No VTE Risk Level:: Medical - moderate - high VTE Device Contraindication: Treatment Not Indicated VTE Drug Contraindication: N/A - Med Ordered
[2023-04-07 14:56] VITALS: BP 132/59; PULSE 65; RESP 18; TEMP 36.3; O2SAT 92
--- NOTE | 2023-04-07 15:01 | MHC.CM.PN ---
[facility] in [place], [place] is interested and following for a potential LTC male bed. Per [facility] HACKETT, since pt was covid+ on 04/02, he won't be considered recovered until 04/13, so they cannot consider until then, but will follow.
[2023-04-07 16:20] LABS: Glucose, Whole Blood 205 mg/dL (60-115)
[2023-04-07 19:07] VITALS: BP 119/63; PULSE 65; RESP 18; TEMP 36.3; O2SAT 92
[2023-04-07] MEDS: traZODone HCL 50 MG TABLET PO (20:00)
[2023-04-07] MEDS: Atorvastatin Calcium 40 MG TABLET PO (20:00)
[2023-04-07] MEDS: Sennosides 8.6 MG TABLET 17.2 MG PO (20:00)
[2023-04-07] MEDS: Acetaminophen 325 MG TABLET 975 MG PO (20:00)
[2023-04-07] MEDS: Enoxaparin Sodium 40 MG/0.4 ML SYRINGE SUBCUT (20:01)
[2023-04-07 20:09] LABS: Glucose, Whole Blood 177 mg/dL (60-115)
[2023-04-08] VITALS (7 sets, daily range): BP systolic 120–157; BP diastolic 59–82; PULSE 58–90; RESP 17–22; TEMP 36.3–36.8; O2SAT 92–96
[2023-04-08] MEDS: Omeprazole 20 MG CAPSULE.DR PO (05:39)
[2023-04-08] MEDS: Fluticasone/Umeclidinium/Vilanterol 200/62.5/25 BLST.W.DEV 1 PUFF INHALE (08:31)
[2023-04-08] MEDS: Benzonatate 100 MG CAPSULE 200 MG PO ×2 (08:46→15:30)
[2023-04-08] MEDS: Aspirin Enteric Coated 81 MG TABLET.DR PO (08:46)
[2023-04-08] MEDS: polyethylene glycoL 3350 17 GM POWD.PACK PO (08:46)
[2023-04-08] MEDS: Gabapentin 300 MG CAPSULE PO ×2 (08:46→15:30)
[2023-04-08] MEDS: Lactulose 20 GM/30 ML SOLUTION 10 GM PO (08:46)
[2023-04-08] MEDS: dexAMETHasone 6 MG TABLET PO (08:47)
[2023-04-08] MEDS: Acetaminophen 325 MG TABLET 975 MG PO ×2 (08:47→15:30)
[2023-04-08] MEDS: QUEtiapine Fumarate 50 MG TABLET PO ×2 (08:47→15:30)
[2023-04-08] MEDS: Docusate Sodium 100 MG CAPSULE PO (08:47)
[2023-04-08] MEDS: Clopidogrel Bisulfate 75 MG TABLET PO (08:47)
[2023-04-08] MEDS: Furosemide 40 MG TABLET PO (08:47)
[2023-04-08] MEDS: Folic Acid 1 MG TABLET PO (08:47)
[2023-04-08] MEDS: carvediloL 3.125 MG TABLET PO (08:47)
[2023-04-08] MEDS: Sertraline HCL 100 MG TABLET PO (08:47)
[2023-04-08 08:48] LABS: Glucose, Whole Blood 113 mg/dL (60-115)
[2023-04-08] MEDS: 0.9 % Sodium Chloride Flush 3 ML SYRINGE IVFLUSH ×2 (09:00→15:30)
[2023-04-08 11:04] LABS: Glucose, Whole Blood 202 mg/dL (60-115)
[2023-04-08] MEDS: Cyanocobalamin (Vitamin B-12) 1,000 MCG/ML VIAL 1000 MCG IM (11:46)
[2023-04-08] MEDS: Insulin Lispro 100 UNIT/ML 3 ML VIAL SUBCUT ×3 (11:46→23:28)
--- NOTE | 2023-04-08 13:10 | MHC.SL.SWA ---
Speech Pathologist Impression: Risk of Aspiration Due to: Reduced Cognition None Dysphasia Diet Status: Recommend DOWNGRADE diet to Chopped/Advance (NDD3) to assure softer foods that a pre-cut, continue on thin liquids and pills whole with liquid. Patient requires 1-1 assistance at all meals. Liquid Consistency and Strategies for Safe Swallow: Liquid Intake Recommendation: Thin Liquid Intake Strategies: Small Sips Solid Food Consistency: Dietary Recommendations: Chopped/Advanced (NDD3) Additional Modifications to Solid Foods: Patient requires full assistance at all meals, including preparing tray by adding sauces and gravies, opening all items, orienting patient verbally to what is on his tray, then directly feeding patient. Oral Medication Intake: Whole with Liquid Please contact the pharmacy regarding appropriate crushable or liquid drug formulations that are available whenever modified delivery is recommended. Compensatory Strategies and Precautions to be Taken for Safe Swallow: Sitting Upright (90 deg) Liquids from Straw Small Bites and Sips Alternate Liquids/Solids Supervision While Eating and Drinking for Safe Swallow: Total Supervision (1:1) Foods to Avoid: Dry, tough to chew, sticky foods, large pieces of uncut meat. Swallowing Recommended Treatments: Compens. Strategy Educat. Recommendation for Speech: Inpatient Speech Therapy Comment: Patient seen at lunch. Patient was alone in room with lunch tray on table beside bed. When I stated who I was and that lunch was here, he replied Nobody told me about it, I didn't know. Tray had large, thick piece of uncut turkey, mashed potatoes and gravy, with chocolate pudding and diet kirill brian. TIMBER WATCHMAN assisted patient, who is visually impaired and has scattered dentition, by cutting up the meat into bite size pieces, pouring the gravy onto the plate, adjusting head of bed to 90 Degrees, and positioning table w/ tray in front of patient and placing fork in patient's hand. Patient then began to randomly stab fork away from plate of food and required hand over hand assistance to stab pieces of meat with fork and bring to mouth. Patient additionally appeared to miss mouth if not directed. TIMBER WATCHMAN then assisted patient fully with meal. Patient managed smaller, precut pieces of meat with gravy or mashed potatoes, producing a mildly prolonged oral phase to adequately chew meat (given limited dentition) and timely swallow. TIMBER WATCHMAN also assisted patient with holding can and taking straw sips of Kirill Brian. TIMBER WATCHMAN further attempted to assess patient's level of independence while eating by draping a towel on chest, handing patient the cup of pudding, placing spoon in hand and orienting him to the cup in other hand. Patient again was not able to manage self feeding in this condition, as he repeatedly stabbed the spoon at the towel on his chest, needed hand over hand assistance to get pudding from cup, frequently missed his mouth, depositing pudding on burrell/face and towel. Recommend DOWNGRADE diet to Chopped/Advance (NDD3) to assure softer foods that a pre-cut, continue on thin liquids and pills whole with liquid. Patient requires 1-1 assistance at all meals. MD, RD, RN notified of recommendations by secure text, TIMBER WATCHMAN adjusted whiteboard in room with revised recommendations. Recommend 1 f/u from TIMBER WATCHMAN to assure toleration and patient appropriately accessing meals. Frequency/Duration: M-F during hospitalization Date Range for Service Req: Timeline to reassess: Box Order Person Clinican/Clinical Fellow: No Supervisory Statement: I have reviewed and agree with the student/clinical fellow's documentation: N/A Speech Language Pathologist: Monie Luke M.A., [facility]TIM[facility] W[facility]
--- NOTE | 2023-04-08 14:41 | MHC.CM.PN ---
Pt. evaluated in person today by admission director at [facility], they have a contract with [facility]. Pt also has [facility] insurance coverage, [facility] a contract with [facility], Evelia, the [facility] liason said she would let [facility] know about pt. as well, they will let us know if they can accept him.
--- NOTE | 2023-04-08 16:05 | HO.PM.IMPN ---
Subjective Subjective Date of Service: 04/08/23 Interval History: seen and examined this morning follow up for placement appears comfortable Review of Systems Review of Systems: Yes all other systems are reviewed and are negative Constitutional Constitutional: Denies chills and Denies fever(s) Cardiovascular Cardiovascular: Denies chest pain, Denies palpitations and Denies dyspnea Respiratory Respiratory: Denies dyspnea Endocrine Endocrine: Denies palpitations Physical Exam Vital Signs: Vital Signs: Last Vital Signs Temp 97.9 F 04/08/23 16:00 Pulse 90 04/08/23 16:00 Resp 17 04/08/23 16:00 BP 149/74 H 04/08/23 16:00 Pulse Ox 94 04/08/23 16:00 O2 Del Method Nasal Cannula 04/08/23 16:00 O2 Flow Rate 3 04/08/23 16:00 Oxygen Flow Rate 3 03/15/23 18:32 BMI result Body Mass Index 44.3 Const: Other: resting in bed, appears comfortable General: alert and awake Nutritional Appearance: obese Resp: Effort & Inspection: normal respiratory effort, able to speak in complete sentences, no respiratory distress and no use of accessory muscles Cardio: Rate: regular rate GI: Inspection: No distended Palpation (GI): Soft to palpation and nontender Neuro: Other: grossly nonfocal General: moves all extremities Extrem: General: Yes no pedal edema Objective Data Active Medications Acetaminophen (Acetaminophen 325 Mg Tablet) 975 mg PO TID [facility] Last Admin: 04/08/23 15:30 Dose: 975 mg Documented By: ASHLEE Al Hydroxide/Mg Hydroxide (Magnesium Hydrox/Alum Hydrox 30 Ml Oral.Susp) 30 ml PO Q6H PRN PRN Reason: dyspepsia Albuterol Sulfate (Albuterol Sulfate 90 Mcg 8 Gm Inhaler) 2 puff INHALE Q4H PRN PRN Reason: Wheezing Albuterol/Ipratropium (Albuterol/Iprat 2.5/0.5mg 3 Ml Ampul.Neb) 3 ml INHALE RQ4H WHILE AWAKE PRN PRN Reason: Shortness of Breath/Wheezing Aspirin (Aspirin Enteric Coated 81 Mg Tablet.) 81 mg PO DAILY [facility] Last Admin: 04/08/23 08:46 Dose: 81 mg Documented By: SAHLEE Atorvastatin Calcium (Atorvastatin Calcium 40 Mg Tablet) 40 mg PO BEDTIME [facility] Last Admin: 04/07/23 20:00 Dose: 40 mg Documented By: ZUNILDA Benzonatate (Benzonatate 100 Mg Capsule) 200 mg PO TID [facility] Last Admin: 04/08/23 15:30 Dose: 200 mg Documented By: ASHLEE Carvedilol (Carvedilol 3.125 Mg Tablet) 3.125 mg PO BID [facility]; Protocol Last Admin: 04/08/23 08:47 Dose: 3.125 mg Documented By: ASHLEE Clopidogrel Bisulfate (Clopidogrel Bisulfate 75 Mg Tablet) 75 mg PO DAILY [facility] Last Admin: 04/08/23 08:47 Dose: 75 mg Documented By: ASHLEE Cyanocobalamin (Cyanocobalamin (Vitamin B-12) 1,000 Mcg/Ml Vial) 1,000 mcg IM Q30D [facility] Last Admin: 04/08/23 11:46 Dose: 1,000 mcg Documented By: ASHLEE Dexamethasone (Dexamethasone 6 Mg Tablet) 6 mg PO DAILY [facility] Last Admin: 04/08/23 08:47 Dose: 6 mg Documented By: ASHLEE Dextrose (Dextrose 50 % 25 Gm/50 Ml Syringe) 25 gm IVPUSH Q15M PRN; Protocol PRN Reason: per Hypoglycemia Standing Ord. Docusate Sodium (Docusate Sodium 100 Mg Capsule) 100 mg PO BID [facility] Last Admin: 04/08/23 08:47 Dose: 100 mg Documented By: ASHLEE Enoxaparin Sodium (Enoxaparin Sodium 40 Mg/0.4 Ml Syringe) 40 mg SUBCUT Q24H [facility] Last Admin: 04/07/23 20:01 Dose: 40 mg Documented By: ZUNILDA Fluticasone/Umeclidinium/Vilanterol (Fluticasone/Umeclidinium/Vilanterol 200/62.5/25 Blst.W.Dev) 1 puff INHALE RDAILY [facility] Last Admin: 04/08/23 08:31 Dose: 1 puff Documented By: YANN Folic Acid (Folic Acid 1 Mg Tablet) 1 mg PO DAILY [facility] Last Admin: 04/08/23 08:47 Dose: 1 mg Documented By: ASHLEE Furosemide (Furosemide 40 Mg Tablet) 40 mg PO DAILY [facility]; Protocol Last Admin: 04/08/23 08:47 Dose: 40 mg Documented By: ASHLEE Gabapentin (Gabapentin 300 Mg Capsule) 300 mg PO TID [facility] Last Admin: 04/08/23 15:30 Dose: 300 mg Documented By: ASHLEE Glucose (Glucose Gel 15 Gm Gel..Gram.) 15 gm PO Q15M PRN; Protocol PRN Reason: per Hypoglycemia Standing Ord. Insulin Human Lispro (Insulin Lispro 100 Unit/Ml 3 Ml Vial) 0 unit SUBCUT QIDACHS [facility]; Protocol Last Admin: 04/08/23 11:46 Dose: 4 unit Documented By: ASHLEE Lactulose (Lactulose 20 Gm/30 Ml Solution) 10 gm PO DAILY [facility] Last Admin: 04/08/23 08:46 Dose: 10 gm Documented By: ASHLEE Melatonin (Melatonin 3 Mg Tablet) 6 mg PO BEDTIME PRN PRN Reason: Insomnia Omeprazole (Omeprazole 20 Mg Capsule.Dr) 20 mg PO DAILY@0630 [facility] Last Admin: 04/08/23 05:39 Dose: 20 mg Documented By: ZUNILDA Ondansetron HCl (Ondansetron Hcl 4 Mg/2 Ml Vial) 4 mg IVPUSH Q8H PRN PRN Reason: Nausea and Vomiting Last Admin: 04/05/23 12:43 Dose: 4 mg Documented By: FERMIN Polyethylene Glycol (Polyethylene Glycol 3350 17 Gm Powd.Pack) 17 gm PO DAILY [facility] Last Admin: 04/08/23 08:46 Dose: 17 gm Documented By: ASHLEE Quetiapine Fumarate (Quetiapine Fumarate 50 Mg Tablet) 50 mg PO TID [facility] Last Admin: 04/08/23 15:30 Dose: 50 mg Documented By: ASHLEE Senna (Sennosides 8.6 Mg Tablet) 17.2 mg PO BEDTIME [facility] Last Admin: 04/07/23 20:00 Dose: 17.2 mg Documented By: ZUNILDA Sertraline HCl (Sertraline Hcl 100 Mg Tablet) 100 mg PO DAILY [facility] Last Admin: 04/08/23 08:47 Dose: 100 mg Documented By: ASHLEE Sodium Chloride (0.9 % Sodium Chloride Flush 3 Ml Syringe) 3 ml IVFLUSH QSHIFT [facility] Last Admin: 04/08/23 15:30 Dose: 3 ml Documented By: ASHLEE Trazodone HCl (Trazodone Hcl 50 Mg Tablet) 50 mg PO BEDTIME [facility] Last Admin: 04/07/23 20:00 Dose: 50 mg Documented By: ZUNILDA Labs 04/03/23 07:48 04/07/23 06:00 Labs: Laboratory Results - last 24 hr 04/07/23 04/07/23 04/08/23 16:15 19:56 08:25 POC Glucose 205 H 177 H 113 04/08/23 11:00 POC Glucose 202 H Microbiology Microbiology Results: Microbiology 04/02/23 19:38 Blood Culture - Final Blood - Venous No growth after 5 days. 04/02/23 19:38 Blood Culture - Final Blood - Venous No growth after 5 days. Assessment and Plan (1) COVID-19: Status: Acute (2) Major neurocognitive disorder: Status: Acute Plan This is a 72-year-old male with a PMH significant for?CAD, uor-sekhxdg-edrrrotqk diabetes type 2, who initially presented presents to the ED on 03/15/2023 from SNF after reportedly having hallucinations and being combative with staff. Pt was placed in physician observation in the ED until he became hypoxic and tested positive for COVID admitted to the medical floor for treatment and further evaluation of acute hypoxic respiratory failure in the setting of COVID infection. Acute hypoxic respiratory failure in the setting COVID 19 infection no shortness of breath, cough improving on po dexamethasone, started 04/02/2023 thru 04/12 , finished course of remdesivir 04/03/23- 04/05 currently on3L NC, on home oxygen 2 L Continue inhalers, DuoNeb as needed, cough medication, and GI prophylaxis with Prilosec. Monitor respiratory status HTN Stable blood pressures Continue Carvedilol and follow BP CAD/HLD Continue statin, aspirin, Coreg and Plavix, ldl 52 / t.chol 101, will decrease dose of statin to 40 mg Mild persistence asthma no acute exacerbation Continue home inhalers Tfo-yrfnxpk-oabbhtvxm type 2 diabetes mild hyperglycemia due to steroids Hold metformin,,on sliding scale insulin and diabetic diet Mood disorder/dementia Continue trazodone, sertraline continue seroquel as ordered by Psychiatry. Morbid obesity BMI 44.3 recommend low-calorie diet. Disposition followed by Case Management for senior care placement. Full Code DVT Prophylaxis: Lovenox Pt will require continued inpatient hospitalization for?acute hypoxic respiratory failure in setting of COVID. Need safe disposition CM arranging for long-term care placement. Quality Stroke Does the patient have a stroke diagnosis?: No VTE Prior VTE?: No VTE Risk Level:: Medical - moderate - high VTE Device Contraindication: Treatment Not Indicated VTE Drug Contraindication: N/A - Med Ordered
[2023-04-08 16:09] LABS: Glucose, Whole Blood 223 mg/dL (60-115)
[2023-04-08] MEDS: OLANZapine 10 MG VIAL 5 MG IM (21:23)
[2023-04-08] MEDS: Enoxaparin Sodium 40 MG/0.4 ML SYRINGE SUBCUT (21:24)
[2023-04-08 22:22] LABS: Glucose, Whole Blood 166 mg/dL (60-115)
[2023-04-09 03:08] VITALS: BP 133/70; PULSE 63; RESP 18; TEMP 36.2; O2SAT 96
--- NOTE | 2023-04-09 04:30 | PC.NURSE ---
Around 2100, high fall risk patient increasingly agitated and belligerent. Alert and oriented to person. Loud, verbally abusive to staff with profanity. Pulled off nasal cannula and attempted to climb out of bed. Patient not redirectable or consolable. MD notified, code assist called. Nursing spinning and winding supervisor at bedside. order of stat Zyprexa given with effect. Vital signs stable. Call gamboa in reach. Fall risk precautions in place. Sitter and camera in room. Call gamboa in reach. Plan of care ongoing.
[2023-04-09] MEDS: Omeprazole 20 MG CAPSULE.DR PO (05:49)
[2023-04-09 07:42] VITALS: BP 115/56; PULSE 70; RESP 20; TEMP 36.4; O2SAT 94
[2023-04-09 07:52] LABS: Glucose, Whole Blood 158 mg/dL (60-115)
[2023-04-09] MEDS: Fluticasone/Umeclidinium/Vilanterol 200/62.5/25 BLST.W.DEV 1 PUFF INHALE (08:23)
[2023-04-09 08:28] VITALS: PULSE 69; RESP 18; O2SAT 98
--- NOTE | 2023-04-09 08:58 | MHC.CM.PN ---
Addendum entered by Brielle Garrison 04/09/23 16:12: Pt retested for covid and is now negative. [facility] willing [facility] pt on Wednesday 04/12 pending [facility] auth and [facility] transport. Mag[facility] Z[facility] at [facility], and [facility] also continue to follow. This CM spoke with pts daughter/HCP Deirdre to provide an update. Deirdre states they would like him to get STR and come home. This CM explained that we have been looking for LTC for this pt as that is what PT has recommended. Deirdre is aware and in agreement with plan. Daughter/HCP Deirdre would like a call on Wednesday 04/12 to confirm placement preference. She states pt had been to [facility] in the past and it was a good experience. Original Note: [facility] met with pt yesterday, today they report they are willing to accept pt, but first have to confirm if they have a precaution bed available. [facility] suggested [facility] a better fit as [facility]. This CM contacted the [facility] and spoke with Pepper who confirmed that the pt has LTC coverage through the [facility]. Pepper is going to work on getting his case approved for LTC and will call and update us if she gets more information (since pt does not have VA MD, per Pepper there will be a few more steps to take in order to get approval).
[2023-04-09] MEDS: Aspirin Enteric Coated 81 MG TABLET.DR PO (09:04)
[2023-04-09] MEDS: carvediloL 3.125 MG TABLET PO (09:04)
[2023-04-09] MEDS: Acetaminophen 325 MG TABLET 975 MG PO ×2 (09:04→22:44)
[2023-04-09] MEDS: Insulin Lispro 100 UNIT/ML 3 ML VIAL SUBCUT ×4 (09:04→22:44)
[2023-04-09] MEDS: Benzonatate 100 MG CAPSULE 200 MG PO ×2 (09:04→22:43)
[2023-04-09] MEDS: 0.9 % Sodium Chloride Flush 3 ML SYRINGE IVFLUSH ×3 (09:05→22:45)
[2023-04-09] MEDS: Folic Acid 1 MG TABLET PO (09:05)
[2023-04-09] MEDS: Sertraline HCL 100 MG TABLET PO (09:05)
[2023-04-09] MEDS: Furosemide 40 MG TABLET PO (09:05)
[2023-04-09] MEDS: Gabapentin 300 MG CAPSULE PO ×2 (09:05→22:43)
[2023-04-09] MEDS: Clopidogrel Bisulfate 75 MG TABLET PO (09:05)
[2023-04-09] MEDS: dexAMETHasone 6 MG TABLET PO (09:05)
[2023-04-09] MEDS: QUEtiapine Fumarate 50 MG TABLET PO ×2 (09:05→22:43)
[2023-04-09 09:15] LABS: Hematocrit 38.5 % (42.0-52.0); Mean Corpuscular HGB Conc 33.8 g/dl (31.0-36.0); Mean Corpuscular Hemoglobin 33.1 pg (27.0-33.0); Mean Platelet Volume 9.6 fL (9.4-12.4); Platelet Count 144 X10*3/uL (160-400); Red Blood Count 3.93 X10*6/uL (4.60-5.80); Red Cell Distribution Width 14.5 % (11.0-16.0); White Blood Count 10.7 X10*3/uL (4.8-10.8)
[2023-04-09 09:31] LABS: Anion Gap 16 (12-20); Blood Urea Nitrogen 35 mg/dL (9-16); Calcium 9.1 mg/dL (8.4-10.2); Carbon Dioxide 25 mmol/L (22-29); Chloride 101 mmol/L (96-108); Estimated Glomerular Filt Rate 58; Glucose Random 162 mg/dL (60-115); Potassium 4.2 mmol/L (3.3-5.1); Sodium 138 mmol/L (135-145)
[2023-04-09 11:21] VITALS: BP 113/56; PULSE 65; RESP 20; TEMP 36.4; O2SAT 93
[2023-04-09 11:51] LABS: Glucose, Whole Blood 175 mg/dL (60-115)
--- NOTE | 2023-04-09 13:07 | MHC.SL.SWA ---
Speech Pathologist Impression: Risk of aspiration, oral phase dysphagia Risk of Aspiration Due to: Reduced Cognition Dysphasia Diet Status: No changes Liquid Consistency and Strategies for Safe Swallow: Liquid Intake Recommendation: Thin Liquid Intake Strategies: Small Sips Solid Food Consistency: Dietary Recommendations: Chopped/Advanced (NDD3) Additional Modifications to Solid Foods: Patient requires full assistance at all meals, including preparing tray by adding sauces and gravies, opening all items, orienting patient verbally to what is on his tray, then directly feeding patient. Oral Medication Intake: Whole with Liquid Please contact the pharmacy regarding appropriate crushable or liquid drug formulations that are available whenever modified delivery is recommended. Compensatory Strategies and Precautions to be Taken for Safe Swallow: Sitting Upright (90 deg) Double Swallow Small Bites and Sips Alternate Liquids/Solids Rate of Ingestion Change Oral Check Avoid Specific Foods Supervision While Eating and Drinking for Safe Swallow: Total Assistance (1:1) Foods to Avoid: Dry, tough to chew, sticky foods, large pieces of uncut meat. Swallowing Recommended Treatments: Compens. Strategy Educat. Recommendation for Speech: D/C Auditor Appraiser Clinican/Clinical Fellow: No Supervisory Statement: I have reviewed and agree with the student/clinical fellow's documentation: N/A Speech Language Pathologist: Peace Shepherd M.A., CCC-STUDY LEAD
[2023-04-09 14:50] LABS: Influenza A PCR NEGATIVE (Negative); Influenza B PCR NEGATIVE (Negative); Resp Syncy Virus RNA Qual PCR NEGATIVE (Negative); SARS COV2 PCR INHOUSE NEGATIVE (Negative)
--- NOTE | 2023-04-09 15:45 | PM.DS ---
DS: Providers Provider Date of Service: 04/09/23 Date of admission: 04/02/23 19:08 Date of discharge: 04/09/23 Primary care physician: Con Urena MD Consults: 03/15/23 20:14 Consult to Care Team Routine Comment: Reason for consultation: Agitation, aggression 03/16/23 10:27 Consult to Psychiatry Stat Consulting Provider: Psych Covering Reason for consultation: New onset auditory and visual hallucinations, aggressive behavior in SNF Attending physician on discharge: Cornelio Motta Discharging clinician: Tabitha Pandey DS: Diagnosis Discharge Diagnosis (1) COVID-19: Status: Acute (2) Major neurocognitive disorder: Status: Acute DS: Summary Hospital Course Hospital Course: From H&P on the day of admission Pt is a 72-year-old male with a PMH significant for?CAD, shw-nyaskqb-urgkhlddn diabetes type 2, who initially presented presents to the ED on 03/15/2023 from SNF after reportedly having hallucinations and being combative with staff. Patient was initially uncooperative and combative with EMS and declined being brought to the hospital. Healthcare proxy was invoked in order to bring him to the ED. a week prior patient was brought to be state but patient was non cooperative with labs and testing and was sent back to the facility without any workup. When patient presented to [facility] he had been experiencing worsening hallucinations, reportedly seeing horses, children, even dinosaurs. Workup at the hospital was negative for medical reason to explain his hallucinations. Psych was consulted and thought he may be suffering from delirium. Patient was then placed in physician observation. ?During stay patient had episode of sudden aggression, trying to punch staff, grab cords and IV lines; needed to be chemically restrained. Case management involved and initial plan at was for patient to return home with services, however after further discussion and consideration patient needs additional resources and bed search for long-term stay was undertaken. Earlier today patient was noted to be quite lethargic, and seen to be desatting to 82%. Patient tested positive for COVID, and was placed on 5 L O2. Other labs unremarkable. Patient afebrile, no tachycardia or tachypnea. No leukocytosis. CXR showed mild cardiomegaly and no evidence of pneumonia. Patient was started on dexamethasone. At time of interview and exam patient is somnolent but arousable. Answer some questions but falls back asleep immediately. Patient alert and oriented x2, not to place or situation. Denies any acute medical complaints. Patient will be admitted to the hospital medical floor for treatment and further evaluation of acute hypoxic respiratory failure in the setting of COVID infection. Hospital course by problem: Acute on chronic hypoxic respiratory failure due to COVID 19 infection no shortness of breath, cough improving on po dexamethasone, started 04/02/2023 to end 04/12, finished course of remdesivir 04/03/23- 04/05 during hospitalization currently on2L NC, baseline home oxygen 2 L Continue inhalers, DuoNeb as needed, cough medication, and GI prophylaxis with Prilosec. HTN Stable blood pressures Continue Carvedilol CAD/HLD Continue statin, aspirin, Coreg and Plavix, ldl 52 / t.chol 101, will decrease dose of statin to 40 mg Mild persistence asthma no acute exacerbation Continue home inhalers Kfp-spkkwte-jdgkrilbc type 2 diabetes mild hyperglycemia due to steroids Hold metformin,,on sliding scale insulin and diabetic diet Mood disorder/dementia Continue trazodone, sertraline continue seroquel as ordered by Psychiatry. Morbid obesity BMI 44.3 recommend low-calorie diet. Time Attestation Discharge coordination time: Greater than 30 minutes Quality: Safe Use of Opioids Does Pt have an Active Cancer Diagnosis on the Problem List?: No Quality: Stroke Does the patient have a stroke diagnosis?: No Physical Exam Vital Signs: Vital Signs: Last Vital Signs Temp 97.5 F 04/09/23 11:21 Pulse 65 04/09/23 11:21 Resp 20 04/09/23 11:21 BP 113/56 L 04/09/23 11:21 Pulse Ox 93 04/09/23 11:21 O2 Del Method Nasal Cannula 04/09/23 11:21 O2 Flow Rate 2 04/09/23 11:21 Oxygen Flow Rate 3 03/15/23 18:32 BMI result Body Mass Index 44.3 DS: Data Data Completed and Pending Labs on day of discharge: Laboratory Results - last 24 hr 04/08/23 04/08/23 04/09/23 16:03 22:17 07:48 WBC RBC Hgb Hct MCV MCH MCHC RDW Plt Count MPV Absolute Nucleated RBC Nucleated RBC % (auto) Sodium Potassium Chloride Carbon Dioxide Anion Gap BUN Creatinine Estim Creat Clear Calc Estimated GFR POC Glucose 223 H 166 H 158 H Random Glucose Calcium COVID-19 (CECY) COVID-19 Clin Com Influenza Type A (PCR) Influenza Type B (PCR) RSV RNA Qual (PCR) SARS-CoV-2 RNA (RT-PCR) 04/09/23 04/09/23 04/09/23 08:41 11:26 12:35 WBC 10.7 RBC 3.93 L Hgb 13.0 L Hct 38.5 L MCV 98.0 MCH 33.1 H MCHC 33.8 RDW 14.5 Plt Count 144 L MPV 9.6 Absolute Nucleated RBC 0.000 Nucleated RBC % (auto) 0.0 Sodium 138 Potassium 4.2 Chloride 101 Carbon Dioxide 25 Anion Gap 16 BUN 35 H Creatinine 1.23 Estim Creat Clear Calc 81.0 Estimated GFR 58 POC Glucose 175 H Random Glucose 162 H Calcium 9.1 COVID-19 (CECY) Cancelled COVID-19 Clin Com Cancelled Influenza Type A (PCR) NEGATIVE Influenza Type B (PCR) NEGATIVE RSV RNA Qual (PCR) NEGATIVE SARS-CoV-2 RNA (RT-PCR) NEGATIVE Discharge Plan Discharge Anticipated Discharge Date/Time: 04/09/23 15:58 Patient Disposition: Xfer SNF Discharge Diagnosis: acute on chronic hypoxic respiratory failure due to covid 19 Referrals: Physician,Unknown J [Physician] - 1 Week Discharge Medications: New omeprazole 20 mg Capsule,Delayed Release(Dr/Ec) 20 mg PO DAILY@0630 Qty: 1 0RF quetiapine 50 mg Tablet 50 mg PO TID Qty: 30 0RF dexamethasone 6 mg Tablet 6 mg PO DAILY Qty: 3 0RF atorvastatin 40 mg Tablet 40 mg PO BEDTIME Qty: 1 0RF Continued furosemide 40 mg tablet 40 mg PO DAILY sennosides [senna] 8.6 mg Tablet 17.2 mg PO BEDTIME trazodone 50 mg Tablet 50 mg PO BEDTIME polyethylene glycol 3350 [Miralax] 17 gram Powder In Packet 17 g PO DAILY sertraline 100 mg tablet 100 mg PO DAILY clopidogrel 75 mg tablet 75 mg PO DAILY aspirin 81 mg Tablet,Delayed Release (Dr/Ec) 81 mg PO DAILY acetaminophen 500 mg Tablet 1,000 mg PO TID carvedilol 3.125 mg tablet 3.125 mg PO BID cyanocobalamin (vitamin B-12) 1,000 mcg/mL Solution 100 mcg IM QMONTH docusate sodium [Colace] 100 mg Capsule 100 mg PO BID gabapentin 300 mg Capsule 300 mg PO TID folic acid 1 mg Tablet 1 mg PO DAILY albuterol sulfate 90 mcg/actuation Hfa Aerosol Inhaler 2 puff INHALATION Q4H PRN (Reason: Wheezing) metformin 500 mg tablet extended release 24 hr 500 mg PO DAILY lactulose 10 gram/15 mL Solution 10 g PO DAILY cholecalciferol (vitamin D3) 1,250 mcg (50,000 unit) Tablet 1,250 mcg PO WE Trelegy Ellipta 200-62.5-25 mcg Blister With Device 1 inh INHALATION DAILY Discontinued atorvastatin 80 mg tablet 80 mg PO BEDTIME bupropion HCl 100 mg Tablet 100 mg PO DAILY diclofenac sodium 1 % Gel 2 g TOPICAL TID Rx Instructions: apply to single elbow, wrist or hand; for hand includes palm/fingers/back of hand Discharge Orders: Discharge Order (Routine); Ordered 04/09/23 Ordered By: Tabitha Pandey Activity on Discharge: As tolerated Stand Alone Forms: Patient Portal Discharge page Care Plan Goals: see below Health Concerns: covid 19 dementia Plan of Treatment: complete three more days of decadron to complete 10 days for covid dose of statin decreased to 40 mg uses baseline 2L NC Assessment: see discharge summary
[2023-04-09 16:00] VITALS: BP 159/70; PULSE 60; RESP 29; TEMP 35.9; O2SAT 92
--- NOTE | 2023-04-09 16:12 | MHC.CM.PN ---
Addendum entered by Brielle Castroerland 04/09/23 16:19: This CM received call from [facility], they are not able to accept pt today as they do no have a bed ready for him until Wednesday. This CM updated provider, pts daughter/HCP Deirdre, and called and left a message for Pepper from the [place] to update. DCP: [facility]. Addendum entered by Brielle Bladimir 04/09/23 16:17: Second IMM given 04/09 to daughter Deirdre, and she was updated n time of D/C. Original Note: This CM received a call from Pepper from the [place], she states they received a phone call from [facility] who would like to take this patient today. Pepper states they have the [facility] and she will set [facility]. Pepper called back to confirm time of transport of 4:30pm.
--- NOTE | 2023-04-09 16:17 | P.PNIM_ITS ---
Subjective Subjective Date of Service: 04/09/23 Interval History: seen and this morning follow up for covid 19 on baseline oxygen denies sob Review of Systems Review of Systems: Yes all other systems are reviewed and are negative Constitutional Constitutional: Denies chills and Denies fever(s) Cardiovascular Cardiovascular: Denies dyspnea Respiratory Respiratory: Denies dyspnea Gastrointestinal Gastrointestinal: Denies abdominal pain Physical Exam 2 Vital Signs: Vital Signs: Last Vital Signs Temp 97.5 F 04/09/23 11:21 Pulse 65 04/09/23 11:21 Resp 20 04/09/23 11:21 BP 113/56 L 04/09/23 11:21 Pulse Ox 93 04/09/23 11:21 O2 Del Method Nasal Cannula 04/09/23 11:21 O2 Flow Rate 2 04/09/23 11:21 Oxygen Flow Rate 3 03/15/23 18:32 BMI result Body Mass Index 44.3 Const: Other: resting in bed, appears comfortable General: alert and awake Nutritional Appearance: obese Resp: Effort & Inspection: normal respiratory effort, able to speak in complete sentences, no respiratory distress and no use of accessory muscles Cardio: Rate: regular rate GI: Inspection: No distended Palpation (GI): Soft to palpation and nontender Neuro: Other: grossly nonfocal General: moves all extremities Extrem: General: Yes no pedal edema Objective Data Active Medications Acetaminophen (Acetaminophen 325 Mg Tablet) 975 mg PO TID [facility] Last Admin: 04/09/23 09:04 Dose: 975 mg Documented By: ALKA Al Hydroxide/Mg Hydroxide (Magnesium Hydrox/Alum Hydrox 30 Ml Oral.Susp) 30 ml PO Q6H PRN PRN Reason: dyspepsia Albuterol Sulfate (Albuterol Sulfate 90 Mcg 8 Gm Inhaler) 2 puff INHALE Q4H PRN PRN Reason: Wheezing Albuterol/Ipratropium (Albuterol/Iprat 2.5/0.5mg 3 Ml Ampul.Neb) 3 ml INHALE RQ4H WHILE AWAKE PRN PRN Reason: Shortness of Breath/Wheezing Aspirin (Aspirin Enteric Coated 81 Mg Tablet.Dr) 81 mg PO DAILY [facility] Last Admin: 04/09/23 09:04 Dose: 81 mg Documented By: ALKA Atorvastatin Calcium (Atorvastatin Calcium 40 Mg Tablet) 40 mg PO BEDTIME [facility] Last Admin: 04/08/23 23:50 Dose: Not Given Documented By: TRUPTI Non-Admin Reason: Patient Condition Contraindication Benzonatate (Benzonatate 100 Mg Capsule) 200 mg PO TID [facility] Last Admin: 04/09/23 09:04 Dose: 200 mg Documented By: ALKA Carvedilol (Carvedilol 3.125 Mg Tablet) 3.125 mg PO BID [facility]; Protocol Last Admin: 04/09/23 09:04 Dose: 3.125 mg Documented By: ALKA Clopidogrel Bisulfate (Clopidogrel Bisulfate 75 Mg Tablet) 75 mg PO DAILY [facility] Last Admin: 04/09/23 09:05 Dose: 75 mg Documented By: ALKA Cyanocobalamin (Cyanocobalamin (Vitamin B-12) 1,000 Mcg/Ml Vial) 1,000 mcg IM Q30D [facility] Last Admin: 04/08/23 11:46 Dose: 1,000 mcg Documented By: ASHLEE Dexamethasone (Dexamethasone 6 Mg Tablet) 6 mg PO DAILY [facility] Stop: 04/12/23 23:59 Last Admin: 04/09/23 09:05 Dose: 6 mg Documented By: ALKA Dextrose (Dextrose 50 % 25 Gm/50 Ml Syringe) 25 gm IVPUSH Q15M PRN; Protocol PRN Reason: per Hypoglycemia Standing Ord. Docusate Sodium (Docusate Sodium 100 Mg Capsule) 100 mg PO BID [facility] Last Admin: 04/09/23 09:12 Dose: Not Given Documented By: ALKA Non-Admin Reason: Physician Approved Enoxaparin Sodium (Enoxaparin Sodium 40 Mg/0.4 Ml Syringe) 40 mg SUBCUT Q24H [facility] Last Admin: 04/08/23 21:24 Dose: 40 mg Documented By: TRUPTI Fluticasone/Umeclidinium/Vilanterol (Fluticasone/Umeclidinium/Vilanterol 200/62.5/25 Blst.W.Dev) 1 puff INHALE RDAILY [facility] Last Admin: 04/09/23 08:23 Dose: 1 puff Documented By: JASON Folic Acid (Folic Acid 1 Mg Tablet) 1 mg PO DAILY [facility] Last Admin: 04/09/23 09:05 Dose: 1 mg Documented By: ALKA Furosemide (Furosemide 40 Mg Tablet) 40 mg PO DAILY [facility]; Protocol Last Admin: 04/09/23 09:05 Dose: 40 mg Documented By: ALKA Gabapentin (Gabapentin 300 Mg Capsule) 300 mg PO TID [facility] Last Admin: 04/09/23 09:05 Dose: 300 mg Documented By: ALKA Glucose (Glucose Gel 15 Gm Gel..Gram.) 15 gm PO Q15M PRN; Protocol PRN Reason: per Hypoglycemia Standing Ord. Insulin Human Lispro (Insulin Lispro 100 Unit/Ml 3 Ml Vial) 0 unit SUBCUT QIDACHS [facility]; Protocol Last Admin: 04/09/23 11:56 Dose: 2 unit Documented By: ALKA Lactulose (Lactulose 20 Gm/30 Ml Solution) 10 gm PO DAILY [facility] Last Admin: 04/09/23 09:12 Dose: Not Given Documented By: ALKA Non-Admin Reason: Physician Approved Melatonin (Melatonin 3 Mg Tablet) 6 mg PO BEDTIME PRN PRN Reason: Insomnia Omeprazole (Omeprazole 20 Mg Capsule.Dr) 20 mg PO DAILY@0630 [facility] Last Admin: 04/09/23 05:49 Dose: 20 mg Documented By: TRUPTI Ondansetron HCl (Ondansetron Hcl 4 Mg/2 Ml Vial) 4 mg IVPUSH Q8H PRN PRN Reason: Nausea and Vomiting Last Admin: 04/05/23 12:43 Dose: 4 mg Documented By: FERMIN Polyethylene Glycol (Polyethylene Glycol 3350 17 Gm Powd.Pack) 17 gm PO DAILY [facility] Last Admin: 04/09/23 09:12 Dose: Not Given Documented By: ALKA Non-Admin Reason: Physician Approved Quetiapine Fumarate (Quetiapine Fumarate 50 Mg Tablet) 50 mg PO TID [facility] Last Admin: 04/09/23 09:05 Dose: 50 mg Documented By: ALKA Senna (Sennosides 8.6 Mg Tablet) 17.2 mg PO BEDTIME [facility] Last Admin: 04/08/23 23:51 Dose: Not Given Documented By: TRUPTI Non-Admin Reason: Patient Condition Contraindication Sertraline HCl (Sertraline Hcl 100 Mg Tablet) 100 mg PO DAILY [facility] Last Admin: 04/09/23 09:05 Dose: 100 mg Documented By: ALKA Sodium Chloride (0.9 % Sodium Chloride Flush 3 Ml Syringe) 3 ml IVFLUSH QSHIFT [facility] Last Admin: 04/09/23 09:05 Dose: 3 ml Documented By: ALKA Trazodone HCl (Trazodone Hcl 50 Mg Tablet) 50 mg PO BEDTIME [facility] Last Admin: 04/08/23 23:51 Dose: Not Given Documented By: TRUPTI Non-Admin Reason: Patient Condition Contraindication Labs 04/09/23 08:41 04/09/23 08:41 Labs: Laboratory Results - last 24 hr 04/08/23 04/09/23 04/09/23 22:17 07:48 08:41 MCV 98.0 MCH 33.1 H MCHC 33.8 RDW 14.5 Plt Count 144 L MPV 9.6 Absolute Nucleated RBC 0.000 Nucleated RBC % (auto) 0.0 Anion Gap 16 Estim Creat Clear Calc 81.0 Estimated GFR 58 POC Glucose 166 H 158 H Random Glucose 162 H Calcium 9.1 COVID-19 ([facility]) COVID-19 Clin Com Influenza Type A (PCR) Influenza Type B (PCR) RSV RNA Qual (PCR) SARS-CoV-2 RNA (RT-PCR) 04/09/23 04/09/23 11:26 12:35 MCV MCH MCHC RDW Plt Count MPV Absolute Nucleated RBC Nucleated RBC % (auto) Anion Gap Estim Creat Clear Calc Estimated GFR POC Glucose 175 H Random Glucose Calcium COVID-19 (CECY) Cancelled COVID-19 Clin Com Cancelled Influenza Type A (PCR) NEGATIVE Influenza Type B (PCR) NEGATIVE RSV RNA Qual (PCR) NEGATIVE SARS-CoV-2 RNA (RT-PCR) NEGATIVE Assessment and Plan (1) COVID-19: Status: Acute Plan This is a 72-year-old male with a PMH significant for?CAD, oqe-wokkwqv-feurkvgqx diabetes type 2, who initially presented presents to the ED on 03/15/2023 from [facility] after reportedly having hallucinations and being combative with staff. Pt was placed in physician observation in the ED until he became hypoxic and tested positive for COVID admitted to the medical floor for treatment and further evaluation of acute hypoxic respiratory failure in the setting of COVID infection. Acute hypoxic respiratory failure in the setting COVID 19 infection no shortness of breath, cough improving on po dexamethasone, started 04/02/2023 thru 04/12 , finished course of remdesivir 04/03/23- 04/05 currently back on baseline home oxygen 2 L Continue inhalers, DuoNeb as needed, cough medication, and GI prophylaxis with Prilosec. Monitor respiratory status HTN Stable blood pressures Continue Carvedilol and follow BP CAD/HLD Continue statin, aspirin, Coreg and Plavix, ldl 52 / t.chol 101, will decrease dose of statin to 40 mg Mild persistence asthma no acute exacerbation Continue home inhalers Ehy-dkwmeen-rnehmkrko type 2 diabetes mild hyperglycemia due to steroids Hold metformin,,on sliding scale insulin and diabetic diet Mood disorder/dementia Continue trazodone, sertraline continue seroquel as ordered by Psychiatry. Morbid obesity BMI 44.3 recommend low-calorie diet. Disposition followed by Case Management for buttermaker helper placement. Full Code DVT Prophylaxis: Lovenox Pt will require continued inpatient hospitalization for?acute hypoxic respiratory failure in setting of COVID. Need safe disposition CM arranging for long-term care placement. Quality Stroke Does the patient have a stroke diagnosis?: No VTE Prior VTE?: No VTE Risk Level:: Medical - moderate - high VTE Device Contraindication: Treatment Not Indicated VTE Drug Contraindication: N/A - Med Ordered
[2023-04-09 17:09] LABS: Glucose, Whole Blood 204 mg/dL (60-115)
[2023-04-09 19:32] VITALS: BP 168/70; PULSE 50; RESP 18; TEMP 36.8; O2SAT 96
[2023-04-09 20:19] LABS: Glucose, Whole Blood 181 mg/dL (60-115)
[2023-04-09] MEDS: Enoxaparin Sodium 40 MG/0.4 ML SYRINGE SUBCUT (22:42)
[2023-04-09] MEDS: traZODone HCL 50 MG TABLET PO (22:43)
[2023-04-09] MEDS: Sennosides 8.6 MG TABLET 17.2 MG PO (22:43)
[2023-04-09] MEDS: Docusate Sodium 100 MG CAPSULE PO (22:43)
[2023-04-09] MEDS: Atorvastatin Calcium 40 MG TABLET PO (22:44)
[2023-04-10 03:16] VITALS: BP 133/60; PULSE 64; RESP 20; TEMP 37.2; O2SAT 94
[2023-04-10] MEDS: Omeprazole 20 MG CAPSULE.DR PO (04:56)
[2023-04-10 07:02] VITALS: BP 114/63; PULSE 75; RESP 18; TEMP 36.2; O2SAT 96
[2023-04-10 07:34] LABS: Glucose, Whole Blood 126 mg/dL (60-115)
[2023-04-10] MEDS: Fluticasone/Umeclidinium/Vilanterol 200/62.5/25 BLST.W.DEV 1 PUFF INHALE (08:19)
[2023-04-10 08:20] VITALS: PULSE 75; RESP 20; O2SAT 95
[2023-04-10] MEDS: Gabapentin 300 MG CAPSULE PO ×3 (09:50→21:52)
[2023-04-10] MEDS: Folic Acid 1 MG TABLET PO (09:50)
[2023-04-10] MEDS: Furosemide 40 MG TABLET PO (09:50)
[2023-04-10] MEDS: carvediloL 3.125 MG TABLET PO ×2 (09:50→21:52)
[2023-04-10] MEDS: Sertraline HCL 100 MG TABLET PO (09:50)
[2023-04-10] MEDS: QUEtiapine Fumarate 50 MG TABLET PO ×3 (09:50→21:52)
[2023-04-10] MEDS: Acetaminophen 325 MG TABLET 975 MG PO ×3 (09:50→21:52)
[2023-04-10] MEDS: Clopidogrel Bisulfate 75 MG TABLET PO (09:50)
[2023-04-10] MEDS: Benzonatate 100 MG CAPSULE 200 MG PO ×3 (09:51→21:52)
[2023-04-10] MEDS: dexAMETHasone 6 MG TABLET PO (09:51)
[2023-04-10] MEDS: Aspirin Enteric Coated 81 MG TABLET.DR PO (09:51)
[2023-04-10] MEDS: Docusate Sodium 100 MG CAPSULE PO ×2 (09:51→21:52)
[2023-04-10] MEDS: 0.9 % Sodium Chloride Flush 3 ML SYRINGE IVFLUSH ×2 (09:51→16:10)
[2023-04-10] MEDS: polyethylene glycoL 3350 17 GM POWD.PACK PO (09:52)
[2023-04-10 11:28] LABS: Glucose, Whole Blood 217 mg/dL (60-115)
[2023-04-10] MEDS: Insulin Lispro 100 UNIT/ML 3 ML VIAL SUBCUT ×3 (11:34→21:53)
[2023-04-10 15:05] VITALS: BP 153/67; PULSE 63; RESP 18; TEMP 36.2; O2SAT 95
--- NOTE | 2023-04-10 15:17 | MHC.CM.PN ---
CM MET WITH PTS DAUGHTER AT BEDSIDE PER HER REQUEST SHE SAYS SHE LOOKED UP [facility] AND IS CONCERNED ABOUT HOW FAR AWAY IT IS SHE ASKS THAT PT GO TO [facility] IF THEY ARE STILL OFFERING UPDATE SENT TO [facility] TO DETERMINE IF THEY HAVE A BED TO OFFER
[2023-04-10 15:29] LABS: Glucose, Whole Blood 187 mg/dL (60-115)
--- NOTE | 2023-04-10 16:06 | P.PNIM_ITS ---
Subjective Subjective Date of Service: 04/10/23 Interval History: seen and examined this morning follow up for placement no overnight events awake, alert, no complaints this am Review of Systems Review of Systems: Yes all other systems are reviewed and are negative Constitutional Constitutional: Denies chills and Denies fever(s) Cardiovascular Cardiovascular: Denies chest pain and Denies dyspnea Respiratory Respiratory: Denies cough and Denies dyspnea Physical Exam 2 Vital Signs: Vital Signs: Last Vital Signs Temp 97.1 F 04/10/23 15:05 Pulse 63 04/10/23 15:05 Resp 18 04/10/23 15:05 BP 153/67 H 04/10/23 15:05 Pulse Ox 95 04/10/23 15:05 O2 Del Method Nasal Cannula 04/10/23 15:05 O2 Flow Rate 2 04/10/23 15:05 Oxygen Flow Rate 3 03/15/23 18:32 BMI result Body Mass Index 44.3 Const: Other: resting in bed, appears comfortable General: alert and awake Nutritional Appearance: obese Resp: Effort & Inspection: normal respiratory effort, able to speak in complete sentences, no respiratory distress and no use of accessory muscles Cardio: Rate: regular rate GI: Inspection: No distended Palpation (GI): Soft to palpation and nontender Neuro: Other: grossly nonfocal General: moves all extremities Extrem: General: Yes no pedal edema Objective Data Active Medications Acetaminophen (Acetaminophen 325 Mg Tablet) 975 mg PO TID [facility] Last Admin: 04/10/23 09:50 Dose: 975 mg Documented By: VIRGIE Al Hydroxide/Mg Hydroxide (Magnesium Hydrox/Alum Hydrox 30 Ml Oral.Susp) 30 ml PO Q6H PRN PRN Reason: dyspepsia Albuterol Sulfate (Albuterol Sulfate 90 Mcg 8 Gm Inhaler) 2 puff INHALE Q4H PRN PRN Reason: Wheezing Aspirin (Aspirin Enteric Coated 81 Mg Tablet.) 81 mg PO DAILY [facility] Last Admin: 04/10/23 09:51 Dose: 81 mg Documented By: VIRGIE Atorvastatin Calcium (Atorvastatin Calcium 40 Mg Tablet) 40 mg PO BEDTIME [facility] Last Admin: 04/09/23 22:44 Dose: 40 mg Documented By: DEBI Benzonatate (Benzonatate 100 Mg Capsule) 200 mg PO TID [facility] Last Admin: 04/10/23 09:51 Dose: 200 mg Documented By: VIRGIE Carvedilol (Carvedilol 3.125 Mg Tablet) 3.125 mg PO BID [facility]; Protocol Last Admin: 04/10/23 09:50 Dose: 3.125 mg Documented By: VIRGIE Clopidogrel Bisulfate (Clopidogrel Bisulfate 75 Mg Tablet) 75 mg PO DAILY [facility] Last Admin: 04/10/23 09:50 Dose: 75 mg Documented By: VIRGIE Cyanocobalamin (Cyanocobalamin (Vitamin B-12) 1,000 Mcg/Ml Vial) 1,000 mcg IM Q30D [facility] Last Admin: 04/08/23 11:46 Dose: 1,000 mcg Documented By: ASHLEE Dexamethasone (Dexamethasone 6 Mg Tablet) 6 mg PO DAILY [facility] Stop: 04/12/23 23:59 Last Admin: 04/10/23 09:51 Dose: 6 mg Documented By: VIRGIE Dextrose (Dextrose 50 % 25 Gm/50 Ml Syringe) 25 gm IVPUSH Q15M PRN; Protocol PRN Reason: per Hypoglycemia Standing Ord. Docusate Sodium (Docusate Sodium 100 Mg Capsule) 100 mg PO BID [facility] Last Admin: 04/10/23 09:51 Dose: 100 mg Documented By: VIRGIE Enoxaparin Sodium (Enoxaparin Sodium 40 Mg/0.4 Ml Syringe) 40 mg SUBCUT Q24H [facility] Last Admin: 04/09/23 22:42 Dose: 40 mg Documented By: DEBI Fluticasone/Umeclidinium/Vilanterol (Fluticasone/Umeclidinium/Vilanterol 200/62.5/25 Blst.W.Dev) 1 puff INHALE RDAILY [facility] Last Admin: 04/10/23 08:19 Dose: 1 puff Documented By: PERLA Folic Acid (Folic Acid 1 Mg Tablet) 1 mg PO DAILY [facility] Last Admin: 04/10/23 09:50 Dose: 1 mg Documented By: VIRGIE Furosemide (Furosemide 40 Mg Tablet) 40 mg PO DAILY [facility]; Protocol Last Admin: 04/10/23 09:50 Dose: 40 mg Documented By: VIRGIE Gabapentin (Gabapentin 300 Mg Capsule) 300 mg PO TID [facility] Last Admin: 04/10/23 09:50 Dose: 300 mg Documented By: VIRGIE Glucose (Glucose Gel 15 Gm Gel..Gram.) 15 gm PO Q15M PRN; Protocol PRN Reason: per Hypoglycemia Standing Ord. Insulin Human Lispro (Insulin Lispro 100 Unit/Ml 3 Ml Vial) 0 unit SUBCUT QIDACHS [facility]; Protocol Last Admin: 04/10/23 11:34 Dose: 4 unit Documented By: VIRGIE Lactulose (Lactulose 20 Gm/30 Ml Solution) 10 gm PO DAILY [facility] Last Admin: 04/10/23 09:51 Dose: Not Given Documented By: VIRGIE Non-Admin Reason: Patient Refused Melatonin (Melatonin 3 Mg Tablet) 6 mg PO BEDTIME PRN PRN Reason: Insomnia Omeprazole (Omeprazole 20 Mg Capsule.Dr) 20 mg PO DAILY@0630 [facility] Last Admin: 04/10/23 04:56 Dose: 20 mg Documented By: ARLEEN Ondansetron HCl (Ondansetron Hcl 4 Mg/2 Ml Vial) 4 mg IVPUSH Q8H PRN PRN Reason: Nausea and Vomiting Last Admin: 04/05/23 12:43 Dose: 4 mg Documented By: FERMIN Polyethylene Glycol (Polyethylene Glycol 3350 17 Gm Powd.Pack) 17 gm PO DAILY [facility] Last Admin: 04/10/23 09:52 Dose: 17 gm Documented By: VIRGIE Quetiapine Fumarate (Quetiapine Fumarate 50 Mg Tablet) 50 mg PO TID [facility] Last Admin: 04/10/23 09:50 Dose: 50 mg Documented By: VIRGIE Senna (Sennosides 8.6 Mg Tablet) 17.2 mg PO BEDTIME [facility] Last Admin: 04/09/23 22:43 Dose: 17.2 mg Documented By: DEBI Sertraline HCl (Sertraline Hcl 100 Mg Tablet) 100 mg PO DAILY [facility] Last Admin: 04/10/23 09:50 Dose: 100 mg Documented By: VIRGIE Sodium Chloride (0.9 % Sodium Chloride Flush 3 Ml Syringe) 3 ml IVFLUSH QSHIFT [facility] Last Admin: 04/10/23 09:51 Dose: 3 ml Documented By: VIRGIE Trazodone HCl (Trazodone Hcl 50 Mg Tablet) 50 mg PO BEDTIME [facility] Last Admin: 04/09/23 22:43 Dose: 50 mg Documented By: DEBI Labs 04/09/23 08:41 04/09/23 08:41 Labs: Laboratory Results - last 24 hr 04/09/23 04/09/23 04/10/23 16:49 20:11 07:16 POC Glucose 204 H 181 H 126 H 04/10/23 04/10/23 11:21 15:07 POC Glucose 217 H 187 H Assessment and Plan (1) Major neurocognitive disorder: Status: Acute Plan This is a 72-year-old male with a PMH significant for?CAD, byn-xdwymke-kmebgdava diabetes type 2, who initially presented presents to the ED on 03/15/2023 from SNF after reportedly having hallucinations and being combative with staff. Pt was placed in physician observation in the ED until he became hypoxic and tested positive for COVID admitted to the medical floor for treatment and further evaluation of acute hypoxic respiratory failure in the setting of COVID infection. Acute hypoxic respiratory failure in the setting COVID 19 infection no shortness of breath, cough improving on po dexamethasone, started 04/02/2023 thru 04/12 , finished course of remdesivir 04/03/23- 04/05 currently back on baseline home oxygen 2 L Continue inhalers, DuoNeb as needed, cough medication, and GI prophylaxis with Prilosec. HTN Stable blood pressures Continue Carvedilol and follow BP CAD/HLD Continue statin, aspirin, Coreg and Plavix, ldl 52 / t.chol 101, will decrease dose of statin to 40 mg Mild persistence asthma no acute exacerbation Continue home inhalers Pah-fhbhjkl-mzuyvijfe type 2 diabetes mild hyperglycemia due to steroids Hold metformin,,on sliding scale insulin and diabetic diet Mood disorder/dementia Continue trazodone, sertraline continue seroquel as ordered by Psychiatry. Morbid obesity BMI 44.3 recommend low-calorie diet. Disposition followed by Case Management for director long term care placement Full Code DVT Prophylaxis: Lovenox Pt will require continued hospital stay for safe disposition CM arranging for long-term care placement. Quality Stroke Does the patient have a stroke diagnosis?: No VTE Prior VTE?: No VTE Risk Level:: Medical - moderate - high VTE Device Contraindication: Treatment Not Indicated VTE Drug Contraindication: N/A - Med Ordered
[2023-04-10 19:30] VITALS: BP 141/55; PULSE 53; RESP 16; TEMP 36.6; O2SAT 92
[2023-04-10 20:35] LABS: Glucose, Whole Blood 239 mg/dL (60-115)
[2023-04-10] MEDS: traZODone HCL 50 MG TABLET PO (21:52)
[2023-04-10] MEDS: Sennosides 8.6 MG TABLET 17.2 MG PO (21:52)
[2023-04-10] MEDS: Atorvastatin Calcium 40 MG TABLET PO (21:52)
[2023-04-10] MEDS: Enoxaparin Sodium 40 MG/0.4 ML SYRINGE SUBCUT (21:53)
[2023-04-11] VITALS (9 sets, daily range): BP systolic 118–158; BP diastolic 57–78; PULSE 54–73; RESP 16–20; TEMP 36–36.9; O2SAT 92–96
[2023-04-11] MEDS: Omeprazole 20 MG CAPSULE.DR PO (05:52)
[2023-04-11] MEDS: 0.9 % Sodium Chloride Flush 3 ML SYRINGE IVFLUSH ×3 (05:55→16:28)
[2023-04-11] MEDS: Fluticasone/Umeclidinium/Vilanterol 200/62.5/25 BLST.W.DEV 1 PUFF INHALE (07:54)
[2023-04-11 08:19] LABS: Glucose, Whole Blood 136 mg/dL (60-115)
[2023-04-11] MEDS: Furosemide 40 MG TABLET PO (09:46)
[2023-04-11] MEDS: dexAMETHasone 6 MG TABLET PO (09:46)
[2023-04-11] MEDS: Aspirin Enteric Coated 81 MG TABLET.DR PO (09:46)
[2023-04-11] MEDS: polyethylene glycoL 3350 17 GM POWD.PACK PO (09:46)
[2023-04-11] MEDS: Acetaminophen 325 MG TABLET 975 MG PO ×3 (09:46→21:41)
[2023-04-11] MEDS: Sertraline HCL 100 MG TABLET PO (09:46)
[2023-04-11] MEDS: QUEtiapine Fumarate 50 MG TABLET PO ×3 (09:46→20:06)
[2023-04-11] MEDS: Benzonatate 100 MG CAPSULE 200 MG PO ×3 (09:46→20:06)
[2023-04-11] MEDS: Clopidogrel Bisulfate 75 MG TABLET PO (09:47)
[2023-04-11] MEDS: Gabapentin 300 MG CAPSULE PO ×3 (09:47→20:06)
[2023-04-11] MEDS: Folic Acid 1 MG TABLET PO (09:47)
[2023-04-11] MEDS: Docusate Sodium 100 MG CAPSULE PO ×2 (09:52→20:04)
[2023-04-11] MEDS: Insulin Lispro 100 UNIT/ML 3 ML VIAL SUBCUT ×3 (11:42→21:40)
[2023-04-11 12:02] LABS: Glucose, Whole Blood 227 mg/dL (60-115)
--- NOTE | 2023-04-11 13:38 | HO.PM.IMPN ---
Subjective Subjective Date of Service: 04/11/23 Interval History: Seen in examined this morning Follow-up were placement No overnight events Doing well, no specific complaints. Denies shortness of breath or cough Review of Systems Review of Systems: Yes all other systems are reviewed and are negative Constitutional Constitutional: Denies chills and Denies fever(s) Cardiovascular Cardiovascular: Denies chest pain, Denies palpitations and Denies dyspnea Respiratory Respiratory: Denies cough and Denies dyspnea Endocrine Endocrine: Denies palpitations Physical Exam Vital Signs: Vital Signs: Last Vital Signs Temp 98.0 F 04/11/23 11:25 Pulse 59 04/11/23 11:25 Resp 16 04/11/23 11:25 BP 128/59 L 04/11/23 11:25 Pulse Ox 94 04/11/23 11:25 O2 Del Method Nasal Cannula 04/11/23 11:25 O2 Flow Rate 3 04/11/23 11:25 Oxygen Flow Rate 3 03/15/23 18:32 BMI result Body Mass Index 44.3 Const: Other: resting in bed, appears comfortable General: alert and awake Nutritional Appearance: obese Resp: Effort & Inspection: normal respiratory effort, able to speak in complete sentences, no respiratory distress and no use of accessory muscles Cardio: Rate: regular rate GI: Inspection: No distended Palpation (GI): Soft to palpation and nontender Neuro: Other: grossly nonfocal General: moves all extremities Extrem: General: Yes no pedal edema Objective Data Active Medications Acetaminophen (Acetaminophen 325 Mg Tablet) 975 mg PO TID [facility] Last Admin: 04/11/23 09:46 Dose: 975 mg Documented By: VIRGIE Al Hydroxide/Mg Hydroxide (Magnesium Hydrox/Alum Hydrox 30 Ml Oral.Susp) 30 ml PO Q6H PRN PRN Reason: dyspepsia Albuterol Sulfate (Albuterol Sulfate 90 Mcg 8 Gm Inhaler) 2 puff INHALE Q4H PRN PRN Reason: Wheezing Aspirin (Aspirin Enteric Coated 81 Mg Tablet.) 81 mg PO DAILY [facility] Last Admin: 04/11/23 09:46 Dose: 81 mg Documented By: VIRGIE Atorvastatin Calcium (Atorvastatin Calcium 40 Mg Tablet) 40 mg PO BEDTIME [facility] Last Admin: 04/10/23 21:52 Dose: 40 mg Documented By: DEBI Benzonatate (Benzonatate 100 Mg Capsule) 200 mg PO TID [facility] Last Admin: 04/11/23 09:46 Dose: 200 mg Documented By: VIRGIE Carvedilol (Carvedilol 3.125 Mg Tablet) 3.125 mg PO BID [facility]; Protocol Last Admin: 04/11/23 09:53 Dose: Not Given Documented By: VIRGIE Non-Admin Reason: Decreased Heart Rate Clopidogrel Bisulfate (Clopidogrel Bisulfate 75 Mg Tablet) 75 mg PO DAILY [facility] Last Admin: 04/11/23 09:47 Dose: 75 mg Documented By: VIRGIE Cyanocobalamin (Cyanocobalamin (Vitamin B-12) 1,000 Mcg/Ml Vial) 1,000 mcg IM Q30D [facility] Last Admin: 04/08/23 11:46 Dose: 1,000 mcg Documented By: ASHLEE Dexamethasone (Dexamethasone 6 Mg Tablet) 6 mg PO DAILY [facility] Stop: 04/12/23 23:59 Last Admin: 04/11/23 09:46 Dose: 6 mg Documented By: VIRGIE Dextrose (Dextrose 50 % 25 Gm/50 Ml Syringe) 25 gm IVPUSH Q15M PRN; Protocol PRN Reason: per Hypoglycemia Standing Ord. Docusate Sodium (Docusate Sodium 100 Mg Capsule) 100 mg PO BID [facility] Last Admin: 04/11/23 09:52 Dose: 100 mg Documented By: VIRGIE Enoxaparin Sodium (Enoxaparin Sodium 40 Mg/0.4 Ml Syringe) 40 mg SUBCUT Q24H [facility] Last Admin: 04/10/23 21:53 Dose: 40 mg Documented By: DBEI Fluticasone/Umeclidinium/Vilanterol (Fluticasone/Umeclidinium/Vilanterol 200/62.5/25 Blst.W.Dev) 1 puff INHALE RDAILY [facility] Last Admin: 04/11/23 07:54 Dose: 1 puff Documented By: PERLA Folic Acid (Folic Acid 1 Mg Tablet) 1 mg PO DAILY [facility] Last Admin: 04/11/23 09:47 Dose: 1 mg Documented By: VIRGIE Furosemide (Furosemide 40 Mg Tablet) 40 mg PO DAILY [facility]; Protocol Last Admin: 04/11/23 09:46 Dose: 40 mg Documented By: VIRGIE Gabapentin (Gabapentin 300 Mg Capsule) 300 mg PO TID [facility] Last Admin: 04/11/23 09:47 Dose: 300 mg Documented By: VIRGIE Glucose (Glucose Gel 15 Gm Gel..Gram.) 15 gm PO Q15M PRN; Protocol PRN Reason: per Hypoglycemia Standing Ord. Insulin Human Lispro (Insulin Lispro 100 Unit/Ml 3 Ml Vial) 0 unit SUBCUT QIDACHS [facility]; Protocol Last Admin: 04/11/23 11:42 Dose: 4 unit Documented By: VIRGIE Lactulose (Lactulose 20 Gm/30 Ml Solution) 10 gm PO DAILY [facility] Last Admin: 04/11/23 09:47 Dose: Not Given Documented By: VIRGIE Non-Admin Reason: Patient Refused Melatonin (Melatonin 3 Mg Tablet) 6 mg PO BEDTIME PRN PRN Reason: Insomnia Omeprazole (Omeprazole 20 Mg Capsule.Dr) 20 mg PO DAILY@0630 [facility] Last Admin: 04/11/23 05:52 Dose: 20 mg Documented By: SHI Ondansetron HCl (Ondansetron Hcl 4 Mg/2 Ml Vial) 4 mg IVPUSH Q8H PRN PRN Reason: Nausea and Vomiting Last Admin: 04/05/23 12:43 Dose: 4 mg Documented By: FERMIN Polyethylene Glycol (Polyethylene Glycol 3350 17 Gm Powd.Pack) 17 gm PO DAILY [facility] Last Admin: 04/11/23 09:46 Dose: 17 gm Documented By: VIRGIE Quetiapine Fumarate (Quetiapine Fumarate 50 Mg Tablet) 50 mg PO TID [facility] Last Admin: 04/11/23 09:46 Dose: 50 mg Documented By: VIRGIE Senna (Sennosides 8.6 Mg Tablet) 17.2 mg PO BEDTIME [facility] Last Admin: 04/10/23 21:52 Dose: 17.2 mg Documented By: DEBI Sertraline HCl (Sertraline Hcl 100 Mg Tablet) 100 mg PO DAILY [facility] Last Admin: 04/11/23 09:46 Dose: 100 mg Documented By: VIRGIE Sodium Chloride (0.9 % Sodium Chloride Flush 3 Ml Syringe) 3 ml IVFLUSH QSHIFT [facility] Last Admin: 04/11/23 09:47 Dose: 3 ml Documented By: VIRGIE Trazodone HCl (Trazodone Hcl 50 Mg Tablet) 50 mg PO BEDTIME [facility] Last Admin: 04/10/23 21:52 Dose: 50 mg Documented By: DEBI Labs 04/09/23 08:41 04/09/23 08:41 Labs: Laboratory Results - last 24 hr 04/10/23 04/10/23 04/11/23 15:07 20:28 07:54 POC Glucose 187 H 239 H 136 H 04/11/23 11:29 POC Glucose 227 H Assessment and Plan (1) Major neurocognitive disorder: Status: Acute Plan This is a 72-year-old male with a PMH significant for?CAD, [id number]-vbgybifgm diabetes type 2, who initially presented presents to the ED on 03/15/2023 from SNF after reportedly having hallucinations and being combative with staff. Pt was placed in physician observation in the ED until he became hypoxic and tested positive for COVID admitted to the medical floor for treatment and further evaluation of acute hypoxic respiratory failure in the setting of COVID infection. Acute hypoxic respiratory failure in the setting COVID 19 infection no shortness of breath, cough improving on po dexamethasone, started 04/02/2023 thru 04/12 , finished course of remdesivir 04/03/23- 04/05 currently back on baseline home oxygen 2 L Continue inhalers, DuoNeb as needed, cough medication, and GI prophylaxis with Prilosec. HTN Stable blood pressures Continue Carvedilol and follow BP CAD/HLD Continue statin, aspirin, Coreg and Plavix, ldl 52 / t.chol 101, dose of statin decreased to 40 mg Mild persistence asthma no acute exacerbation Continue home inhalers Jxr-vmfnrwi-psowvmokj type 2 diabetes mild hyperglycemia due to steroids Hold metformin,,on sliding scale insulin and diabetic diet Mood disorder/dementia Continue trazodone, sertraline continue seroquel as ordered by Psychiatry. Morbid obesity BMI 44.3 recommend low-calorie diet. 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 Quality Stroke Does the patient have a stroke diagnosis?: No VTE Prior VTE?: No VTE Risk Level:: Medical - moderate - high VTE Device Contraindication: Treatment Not Indicated VTE Drug Contraindication: N/A - Med Ordered
[2023-04-11 16:50] LABS: Glucose, Whole Blood 262 mg/dL (60-115)
[2023-04-11] MEDS: Enoxaparin Sodium 40 MG/0.4 ML SYRINGE SUBCUT (20:03)
[2023-04-11] MEDS: Atorvastatin Calcium 40 MG TABLET PO (20:04)
[2023-04-11] MEDS: Sennosides 8.6 MG TABLET 17.2 MG PO (20:05)
[2023-04-11] MEDS: traZODone HCL 50 MG TABLET PO (20:06)
[2023-04-11 21:20] LABS: Glucose, Whole Blood 232 mg/dL (60-115)
[2023-04-12] VITALS (7 sets, daily range): BP systolic 105–157; BP diastolic 61–75; PULSE 50–69; RESP 18–20; TEMP 36–36.6; O2SAT 93–98
[2023-04-12] MEDS: 0.9 % Sodium Chloride Flush 3 ML SYRINGE IVFLUSH ×2 (00:47→08:11)
[2023-04-12] MEDS: Omeprazole 20 MG CAPSULE.DR PO (05:23)
[2023-04-12] MEDS: Fluticasone/Umeclidinium/Vilanterol 200/62.5/25 BLST.W.DEV 1 PUFF INHALE (07:42)
[2023-04-12 08:03] LABS: Glucose, Whole Blood 163 mg/dL (60-115)
[2023-04-12] MEDS: Aspirin Enteric Coated 81 MG TABLET.DR PO (08:10)
[2023-04-12] MEDS: Folic Acid 1 MG TABLET PO (08:10)
[2023-04-12] MEDS: Acetaminophen 325 MG TABLET 975 MG PO ×3 (08:10→21:17)
[2023-04-12] MEDS: Clopidogrel Bisulfate 75 MG TABLET PO (08:11)
[2023-04-12] MEDS: Benzonatate 100 MG CAPSULE 200 MG PO ×3 (08:11→21:17)
[2023-04-12] MEDS: Gabapentin 300 MG CAPSULE PO ×3 (08:11→21:16)
[2023-04-12] MEDS: dexAMETHasone 6 MG TABLET PO (08:11)
[2023-04-12] MEDS: Docusate Sodium 100 MG CAPSULE PO ×2 (08:11→21:16)
[2023-04-12] MEDS: Sertraline HCL 100 MG TABLET PO (08:11)
[2023-04-12] MEDS: Lactulose 20 GM/30 ML SOLUTION 10 GM PO (08:11)
[2023-04-12] MEDS: Furosemide 40 MG TABLET PO (08:11)
[2023-04-12] MEDS: polyethylene glycoL 3350 17 GM POWD.PACK PO (08:11)
[2023-04-12] MEDS: QUEtiapine Fumarate 50 MG TABLET PO ×3 (08:11→21:18)
[2023-04-12] MEDS: Insulin Lispro 100 UNIT/ML 3 ML VIAL SUBCUT ×4 (08:12→21:16)
[2023-04-12 11:35] LABS: Glucose, Whole Blood 240 mg/dL (60-115)
--- NOTE | 2023-04-12 12:30 | HO.PM.IMPN ---
Subjective Subjective Date of Service: 04/12/23 Interval History: Asking for more food, no acute issues overnight, tolerating diet ,no nausea, no vomiting, no abdominal pain oxygen stable on 2 L of home oxygen, denies shortness of breath, no cough . Review of Systems All other system reviewed and negative. Physical Exam Vital Signs: Vital Signs: Last Vital Signs Temp 97.9 F 04/12/23 07:23 Pulse 53 04/12/23 07:42 Resp 18 04/12/23 07:42 BP 157/67 H 04/12/23 07:23 Pulse Ox 96 04/12/23 07:23 O2 Del Method Nasal Cannula 04/12/23 07:23 O2 Flow Rate 2 04/12/23 07:23 Oxygen Flow Rate 3 03/15/23 18:32 BMI result Body Mass Index 44.3 Const: Other: General awake alert, resting comfortably in no acute distress. Neck supple no JVD. CVS regular rate rhythm, Respiratory lungs clear to auscultation, no respiratory distress, no wheeze, no rhonchi. Gastrointestinal abdomen soft, non tender, bowel sounds audible,no guarding , no rigidity. Extremities no pitting edema. Neuro non focal, moving all 4 extremity, speech clear. Psych appropriate affect [place] catheter Objective Data Active Medications Acetaminophen (Acetaminophen 325 Mg Tablet) 975 mg PO TID [facility] Last Admin: 04/12/23 08:10 Dose: 975 mg Documented By: SHIV Al Hydroxide/Mg Hydroxide (Magnesium Hydrox/Alum Hydrox 30 Ml Oral.Susp) 30 ml PO Q6H PRN PRN Reason: dyspepsia Albuterol Sulfate (Albuterol Sulfate 90 Mcg 8 Gm Inhaler) 2 puff INHALE Q4H PRN PRN Reason: Wheezing Aspirin (Aspirin Enteric Coated 81 Mg Tablet.) 81 mg PO DAILY [facility] Last Admin: 04/12/23 08:10 Dose: 81 mg Documented By: SHIV Atorvastatin Calcium (Atorvastatin Calcium 40 Mg Tablet) 40 mg PO BEDTIME [facility] Last Admin: 04/11/23 20:04 Dose: 40 mg Documented By: LASHAWNAMER Benzonatate (Benzonatate 100 Mg Capsule) 200 mg PO TID [facility] Last Admin: 04/12/23 08:11 Dose: 200 mg Documented By: SHIV Carvedilol (Carvedilol 3.125 Mg Tablet) 3.125 mg PO BID [facility]; Protocol Last Admin: 04/12/23 08:12 Dose: Not Given Documented By: SHIV Non-Admin Reason: Decreased Heart Rate Clopidogrel Bisulfate (Clopidogrel Bisulfate 75 Mg Tablet) 75 mg PO DAILY [facility] Last Admin: 04/12/23 08:11 Dose: 75 mg Documented By: SHIV Cyanocobalamin (Cyanocobalamin (Vitamin B-12) 1,000 Mcg/Ml Vial) 1,000 mcg IM Q30D [facility] Last Admin: 04/08/23 11:46 Dose: 1,000 mcg Documented By: ASHLEE Dexamethasone (Dexamethasone 6 Mg Tablet) 6 mg PO DAILY [facility] Stop: 04/12/23 23:59 Last Admin: 04/12/23 08:11 Dose: 6 mg Documented By: SHIV Dextrose (Dextrose 50 % 25 Gm/50 Ml Syringe) 25 gm IVPUSH Q15M PRN; Protocol PRN Reason: per Hypoglycemia Standing Ord. Docusate Sodium (Docusate Sodium 100 Mg Capsule) 100 mg PO BID [facility] Last Admin: 04/12/23 08:11 Dose: 100 mg Documented By: SHIV Enoxaparin Sodium (Enoxaparin Sodium 40 Mg/0.4 Ml Syringe) 40 mg SUBCUT Q24H [facility] Last Admin: 04/11/23 20:03 Dose: 40 mg Documented By: KENNEDI Fluticasone/Umeclidinium/Vilanterol (Fluticasone/Umeclidinium/Vilanterol 200/62.5/25 Blst.W.Dev) 1 puff INHALE RDAILY [facility] Last Admin: 04/12/23 07:42 Dose: 1 puff Documented By: JASSI Folic Acid (Folic Acid 1 Mg Tablet) 1 mg PO DAILY [facility] Last Admin: 04/12/23 08:10 Dose: 1 mg Documented By: SHIV Furosemide (Furosemide 40 Mg Tablet) 40 mg PO DAILY [facility]; Protocol Last Admin: 04/12/23 08:11 Dose: 40 mg Documented By: SHIV Gabapentin (Gabapentin 300 Mg Capsule) 300 mg PO TID [facility] Last Admin: 04/12/23 08:11 Dose: 300 mg Documented By: SHIV Glucose (Glucose Gel 15 Gm Gel..Gram.) 15 gm PO Q15M PRN; Protocol PRN Reason: per Hypoglycemia Standing Ord. Insulin Human Lispro (Insulin Lispro 100 Unit/Ml 3 Ml Vial) 0 unit SUBCUT QIDACHS [facility]; Protocol Last Admin: 04/12/23 12:18 Dose: 4 unit Documented By: SHIV Lactulose (Lactulose 20 Gm/30 Ml Solution) 10 gm PO DAILY [facility] Last Admin: 04/12/23 08:11 Dose: 10 gm Documented By: SHIV Melatonin (Melatonin 3 Mg Tablet) 6 mg PO BEDTIME PRN PRN Reason: Insomnia Omeprazole (Omeprazole 20 Mg Capsule.Dr) 20 mg PO DAILY@0630 [facility] Last Admin: 04/12/23 05:23 Dose: 20 mg Documented By: JONI Ondansetron HCl (Ondansetron Hcl 4 Mg/2 Ml Vial) 4 mg IVPUSH Q8H PRN PRN Reason: Nausea and Vomiting Last Admin: 04/05/23 12:43 Dose: 4 mg Documented By: FERMIN Polyethylene Glycol (Polyethylene Glycol 3350 17 Gm Powd.Pack) 17 gm PO DAILY [facility] Last Admin: 04/12/23 08:11 Dose: 17 gm Documented By: SHIV Quetiapine Fumarate (Quetiapine Fumarate 50 Mg Tablet) 50 mg PO TID [facility] Last Admin: 04/12/23 08:11 Dose: 50 mg Documented By: SHIV Senna (Sennosides 8.6 Mg Tablet) 17.2 mg PO BEDTIME [facility] Last Admin: 04/11/23 20:05 Dose: 17.2 mg Documented By: KENNEDI Sertraline HCl (Sertraline Hcl 100 Mg Tablet) 100 mg PO DAILY [facility] Last Admin: 04/12/23 08:11 Dose: 100 mg Documented By: SHIV Sodium Chloride (0.9 % Sodium Chloride Flush 3 Ml Syringe) 3 ml IVFLUSH QSHIFT [facility] Last Admin: 04/12/23 08:11 Dose: 3 ml Documented By: SHIV Trazodone HCl (Trazodone Hcl 50 Mg Tablet) 50 mg PO BEDTIME [facility] Last Admin: 04/11/23 20:06 Dose: 50 mg Documented By: KENNEDI Labs 04/09/23 08:41 04/09/23 08:41 Labs: Laboratory Results - last 24 hr 04/11/23 04/11/23 04/12/23 15:49 21:09 07:47 POC Glucose 262 H 232 H 163 H 04/12/23 11:21 POC Glucose 240 H Assessment and Plan (1) Major neurocognitive disorder: Status: Acute Plan This is a 72-year-old male with a PMH significant for?CAD, wpi-cpxgrqm-trorqvejq diabetes type 2, who initially presented presents to the ED on 03/15/2023 from SNF after reportedly having hallucinations and being combative with staff. Pt was placed in physician observation in the ED until he became hypoxic and tested positive for COVID admitted to the medical floor for treatment and further evaluation of acute hypoxic respiratory failure in the setting of COVID infection. Acute hypoxic respiratory failure in the setting COVID 19 infection no shortness of breath, cough improving on po dexamethasone, started 04/02/2023 thru 04/12 , last dose of dexamethasone today finished course of remdesivir 04/03/23- 04/05 currently back on baseline home oxygen 2 L Continue inhalers, DuoNeb as needed, cough medication, and GI prophylaxis with Prilosec. HTN Stable blood pressures Continue Carvedilol and follow BP CAD/HLD Continue statin, aspirin, Coreg and Plavix, ldl 52 / t.chol 101, dose of statin decreased to 40 mg Mild persistence asthma no acute exacerbation Continue home inhalers Jnp-gcgbxqk-flncxtfvi type 2 diabetes mild hyperglycemia due to steroids on sliding scale insulin and diabetic diet, will resume home medication on discharge. Mood disorder/dementia Continue trazodone, sertraline and continue seroquel as ordered by Psychiatry. Morbid obesity BMI 44.3 recommend low-calorie diet. Disposition followed by Case Management for [facility] placement Full Code DVT Prophylaxis: Lovenox requires continued hospital stay for safe disposition CM arranging for long-term care placement. Quality Stroke Does the patient have a stroke diagnosis?: No VTE Prior VTE?: No VTE Risk Level:: Medical - moderate - high VTE Device Contraindication: Treatment Not Indicated VTE Drug Contraindication: N/A - Med Ordered
--- NOTE | 2023-04-12 12:46 | MHC.CM.PN ---
Pt. will not be transferring to SNF that had accepted him previously. SNF reported that they are not able to care for him because of behaviors. Referrals have been updated to find an alternative.
[2023-04-12 16:16] LABS: Glucose, Whole Blood 337 mg/dL (60-115)
[2023-04-12 20:47] LABS: Glucose, Whole Blood 236 mg/dL (60-115)
[2023-04-12] MEDS: traZODone HCL 50 MG TABLET PO (21:16)
[2023-04-12] MEDS: Sennosides 8.6 MG TABLET 17.2 MG PO (21:16)
[2023-04-12] MEDS: Enoxaparin Sodium 40 MG/0.4 ML SYRINGE SUBCUT (21:17)
[2023-04-12] MEDS: Atorvastatin Calcium 40 MG TABLET PO (21:17)
[2023-04-13] VITALS (7 sets, daily range): BP systolic 121–146; BP diastolic 58–83; PULSE 56–98; RESP 17–20; TEMP 36–36.8; O2SAT 91–96
[2023-04-13] MEDS: Omeprazole 20 MG CAPSULE.DR PO (04:26)
[2023-04-13 07:33] LABS: Glucose, Whole Blood 201 mg/dL (60-115)
[2023-04-13] MEDS: Fluticasone/Umeclidinium/Vilanterol 200/62.5/25 BLST.W.DEV 1 PUFF INHALE (07:47)
[2023-04-13] MEDS: polyethylene glycoL 3350 17 GM POWD.PACK PO (08:04)
[2023-04-13] MEDS: Lactulose 20 GM/30 ML SOLUTION 10 GM PO (08:05)
[2023-04-13] MEDS: Insulin Lispro 100 UNIT/ML 3 ML VIAL SUBCUT ×3 (08:06→20:06)
[2023-04-13] MEDS: Clopidogrel Bisulfate 75 MG TABLET PO (08:06)
[2023-04-13] MEDS: Acetaminophen 325 MG TABLET 975 MG PO ×2 (08:06→16:43)
[2023-04-13] MEDS: Benzonatate 100 MG CAPSULE 200 MG PO ×3 (08:06→19:58)
[2023-04-13] MEDS: Sertraline HCL 100 MG TABLET PO (08:06)
[2023-04-13] MEDS: Furosemide 40 MG TABLET PO (08:06)
[2023-04-13] MEDS: carvediloL 3.125 MG TABLET PO ×2 (08:07→19:57)
[2023-04-13] MEDS: Folic Acid 1 MG TABLET PO (08:07)
[2023-04-13] MEDS: Docusate Sodium 100 MG CAPSULE PO (08:07)
[2023-04-13] MEDS: QUEtiapine Fumarate 50 MG TABLET PO ×3 (08:07→19:58)
[2023-04-13] MEDS: Gabapentin 300 MG CAPSULE PO ×3 (08:07→19:58)
[2023-04-13] MEDS: Aspirin Enteric Coated 81 MG TABLET.DR PO (08:07)
[2023-04-13 11:13] LABS: Glucose, Whole Blood 182 mg/dL (60-115)
--- NOTE | 2023-04-13 12:38 | P.PNIM_ITS ---
Subjective Subjective Date of Service: 04/13/23 Interval History: Offers no acute complaints this morning, tolerating diet, no nausea no vomiting no abdominal pain no other acute issues overnight oxygenation stable on 2 L of home oxygen. Review of Systems All other system reviewed and negative. Physical Exam 2 Vital Signs: Vital Signs: Last Vital Signs Temp 98.2 F 04/13/23 07:33 Pulse 56 04/13/23 07:49 Resp 18 04/13/23 07:49 BP 146/67 H 04/13/23 07:33 Pulse Ox 94 04/13/23 07:33 O2 Del Method Nasal Cannula 04/13/23 07:33 O2 Flow Rate 2 04/13/23 07:33 Oxygen Flow Rate 3 03/15/23 18:32 BMI result Body Mass Index 44.3 Const: Other: General awake alert, resting comfortably in no acute distress. Neck supple no JVD. CVS regular rate rhythm, Respiratory lungs clear to auscultation, no respiratory distress, no wheeze, no rhonchi. Gastrointestinal abdomen soft, non tender, bowel sounds audible,no guarding , no rigidity. Extremities no pitting edema. Neuro non focal, moving all 4 extremity, speech clear. Psych appropriate affect Objective Data Active Medications Acetaminophen (Acetaminophen 325 Mg Tablet) 975 mg PO TID [facility] Last Admin: 04/13/23 08:06 Dose: 975 mg Documented By: ASHLEE Al Hydroxide/Mg Hydroxide (Magnesium Hydrox/Alum Hydrox 30 Ml Oral.Susp) 30 ml PO Q6H PRN PRN Reason: dyspepsia Albuterol Sulfate (Albuterol Sulfate 90 Mcg 8 Gm Inhaler) 2 puff INHALE Q4H PRN PRN Reason: Wheezing Aspirin (Aspirin Enteric Coated 81 Mg Tablet.) 81 mg PO DAILY [facility] Last Admin: 04/13/23 08:07 Dose: 81 mg Documented By: ASHLEE Atorvastatin Calcium (Atorvastatin Calcium 40 Mg Tablet) 40 mg PO BEDTIME [facility] Last Admin: 04/12/23 21:17 Dose: 40 mg Documented By: LASHAWNAMER Benzonatate (Benzonatate 100 Mg Capsule) 200 mg PO TID [facility] Last Admin: 04/13/23 08:06 Dose: 200 mg Documented By: ASHLEE Carvedilol (Carvedilol 3.125 Mg Tablet) 3.125 mg PO BID [facility]; Protocol Last Admin: 04/13/23 08:07 Dose: 3.125 mg Documented By: ASHLEE Clopidogrel Bisulfate (Clopidogrel Bisulfate 75 Mg Tablet) 75 mg PO DAILY [facility] Last Admin: 04/13/23 08:06 Dose: 75 mg Documented By: ASHLEE Cyanocobalamin (Cyanocobalamin (Vitamin B-12) 1,000 Mcg/Ml Vial) 1,000 mcg IM Q30D [facility] Last Admin: 04/08/23 11:46 Dose: 1,000 mcg Documented By: ASHLEE Dextrose (Dextrose 50 % 25 Gm/50 Ml Syringe) 25 gm IVPUSH Q15M PRN; Protocol PRN Reason: per Hypoglycemia Standing Ord. Docusate Sodium (Docusate Sodium 100 Mg Capsule) 100 mg PO BID [facility] Last Admin: 04/13/23 08:07 Dose: 100 mg Documented By: ASHLEE Enoxaparin Sodium (Enoxaparin Sodium 40 Mg/0.4 Ml Syringe) 40 mg SUBCUT Q24H [facility] Last Admin: 04/12/23 21:17 Dose: 40 mg Documented By: KENNEDI Fluticasone/Umeclidinium/Vilanterol (Fluticasone/Umeclidinium/Vilanterol 200/62.5/25 Blst.W.Dev) 1 puff INHALE RDAILY [facility] Last Admin: 04/13/23 07:47 Dose: 1 puff Documented By: JASON Folic Acid (Folic Acid 1 Mg Tablet) 1 mg PO DAILY [facility] Last Admin: 04/13/23 08:07 Dose: 1 mg Documented By: ASHLEE Furosemide (Furosemide 40 Mg Tablet) 40 mg PO DAILY [facility]; Protocol Last Admin: 04/13/23 08:06 Dose: 40 mg Documented By: ASHLEE Gabapentin (Gabapentin 300 Mg Capsule) 300 mg PO TID [facility] Last Admin: 04/13/23 08:07 Dose: 300 mg Documented By: ASHLEE Glucose (Glucose Gel 15 Gm Gel..Gram.) 15 gm PO Q15M PRN; Protocol PRN Reason: per Hypoglycemia Standing Ord. Insulin Human Lispro (Insulin Lispro 100 Unit/Ml 3 Ml Vial) 0 unit SUBCUT QIDACHS [facility]; Protocol Last Admin: 04/13/23 08:06 Dose: 4 unit Documented By: ASHLEE Lactulose (Lactulose 20 Gm/30 Ml Solution) 10 gm PO DAILY [facility] Last Admin: 04/13/23 08:05 Dose: 10 gm Documented By: ASHLEE Melatonin (Melatonin 3 Mg Tablet) 6 mg PO BEDTIME PRN PRN Reason: Insomnia Omeprazole (Omeprazole 20 Mg Capsule.Dr) 20 mg PO DAILY@0630 [facility] Last Admin: 04/13/23 04:26 Dose: 20 mg Documented By: JONI Ondansetron HCl (Ondansetron Hcl 4 Mg/2 Ml Vial) 4 mg IVPUSH Q8H PRN PRN Reason: Nausea and Vomiting Last Admin: 04/05/23 12:43 Dose: 4 mg Documented By: FERMIN Polyethylene Glycol (Polyethylene Glycol 3350 17 Gm Powd.Pack) 17 gm PO DAILY [facility] Last Admin: 04/13/23 08:04 Dose: 17 gm Documented By: ASHLEE Quetiapine Fumarate (Quetiapine Fumarate 50 Mg Tablet) 50 mg PO TID [facility] Last Admin: 04/13/23 08:07 Dose: 50 mg Documented By: ASHLEE Senna (Sennosides 8.6 Mg Tablet) 17.2 mg PO BEDTIME [facility] Last Admin: 04/12/23 21:16 Dose: 17.2 mg Documented By: KENNEDI Sertraline HCl (Sertraline Hcl 100 Mg Tablet) 100 mg PO DAILY [facility] Last Admin: 04/13/23 08:06 Dose: 100 mg Documented By: ASHLEE Sodium Chloride (0.9 % Sodium Chloride Flush 3 Ml Syringe) 3 ml IVFLUSH QSHIFT [facility] Last Admin: 04/13/23 08:07 Dose: Not Given Documented By: ASHLEE Non-Admin Reason: No IV access Trazodone HCl (Trazodone Hcl 50 Mg Tablet) 50 mg PO BEDTIME [facility] Last Admin: 04/12/23 21:16 Dose: 50 mg Documented By: KENNEDI Labs 04/09/23 08:41 04/09/23 08:41 Labs: Laboratory Results - last 24 hr 04/12/23 04/12/23 04/13/23 16:13 20:43 07:28 POC Glucose 337 H 236 H 201 H 04/13/23 11:10 POC Glucose 182 H Assessment and Plan (1) Major neurocognitive disorder: Status: Acute Plan This is a 72-year-old male with a PMH significant for?CAD, [id number]-zqkxjcecu diabetes type 2, who initially presented presents to the ED on 03/15/2023 from SNF after reportedly having hallucinations and being combative with staff. Pt was placed in physician observation in the ED until he became hypoxic and tested positive for COVID admitted to the medical floor for treatment and further evaluation of acute hypoxic respiratory failure in the setting of COVID infection. Acute hypoxic respiratory failure in the setting COVID 19 infection no shortness of breath, cough improving Finished course of dexamethasone and remdesivir currently back on baseline home oxygen 2 L Continue inhalers, DuoNeb as needed, cough medication, and GI prophylaxis with Prilosec. HTN Stable blood pressures Continue Carvedilol and follow BP CAD/HLD Continue statin, aspirin, Coreg and Plavix, ldl 52 / t.chol 101, dose of statin decreased to 40 mg Mild persistence asthma no acute exacerbation Continue home inhalers Xqk-hsjcrll-zitkajipq type 2 diabetes mild hyperglycemia due to steroids on sliding scale insulin and diabetic diet, will resume home medication on discharge. Mood disorder/dementia Continue trazodone, sertraline and continue seroquel as ordered by Psychiatry. Morbid obesity BMI 44.3 recommend low-calorie diet. Disposition Will obtain repeat PT evaluation to re assess disposition plan Full Code DVT Prophylaxis: Lovenox requires continued hospital stay for safe disposition . Quality Stroke Does the patient have a stroke diagnosis?: No VTE Prior VTE?: No VTE Risk Level:: Medical - moderate - high VTE Device Contraindication: Treatment Not Indicated VTE Drug Contraindication: N/A - Med Ordered
[2023-04-13 16:08] LABS: Glucose, Whole Blood 193 mg/dL (60-115)
[2023-04-13] MEDS: Atorvastatin Calcium 40 MG TABLET PO (19:57)
[2023-04-13] MEDS: metFORMIN HCl ER 500 MG TAB.ER.24H PO (19:58)
[2023-04-13] MEDS: traZODone HCL 50 MG TABLET PO (19:58)
[2023-04-13] MEDS: Enoxaparin Sodium 40 MG/0.4 ML SYRINGE SUBCUT (19:58)
[2023-04-13 20:01] LABS: Glucose, Whole Blood 215 mg/dL (60-115)
[2023-04-14] VITALS (8 sets, daily range): BP systolic 105–135; BP diastolic 53–67; PULSE 69–82; RESP 18–20; TEMP 36.3–37; O2SAT 91–96
[2023-04-14] MEDS: Omeprazole 20 MG CAPSULE.DR PO (06:32)
[2023-04-14 07:31] LABS: Glucose, Whole Blood 118 mg/dL (60-115)
[2023-04-14] MEDS: Fluticasone/Umeclidinium/Vilanterol 200/62.5/25 BLST.W.DEV 1 PUFF INHALE (07:33)
[2023-04-14] MEDS: Lactulose 20 GM/30 ML SOLUTION 10 GM PO (08:26)
[2023-04-14] MEDS: Benzonatate 100 MG CAPSULE 200 MG PO ×2 (08:27→16:07)
[2023-04-14] MEDS: Acetaminophen 325 MG TABLET 975 MG PO ×2 (08:27→16:06)
[2023-04-14] MEDS: Docusate Sodium 100 MG CAPSULE PO (08:28)
[2023-04-14] MEDS: Folic Acid 1 MG TABLET PO (08:28)
[2023-04-14] MEDS: Clopidogrel Bisulfate 75 MG TABLET PO (08:28)
[2023-04-14] MEDS: Sertraline HCL 100 MG TABLET PO (08:28)
[2023-04-14] MEDS: Gabapentin 300 MG CAPSULE PO ×2 (08:28→16:07)
[2023-04-14] MEDS: Furosemide 40 MG TABLET PO (08:28)
[2023-04-14] MEDS: QUEtiapine Fumarate 50 MG TABLET PO ×2 (08:28→16:07)
[2023-04-14] MEDS: carvediloL 3.125 MG TABLET PO (08:28)
[2023-04-14] MEDS: Aspirin Enteric Coated 81 MG TABLET.DR PO (08:28)
[2023-04-14] MEDS: polyethylene glycoL 3350 17 GM POWD.PACK PO (08:30)
--- NOTE | 2023-04-14 10:59 | HO.PM.IMPN ---
Subjective Subjective Date of Service: 04/14/23 Interval History: Being followed for placement. Offers no acute complaints tolerating diet with no nausea, no vomiting, no abdominal pain or diarrhea, denies shortness of breath. No other acute events overnight. Review of Systems All other system reviewed and negative Physical Exam Vital Signs: Vital Signs: Last Vital Signs Temp 97.3 F 04/14/23 07:55 Pulse 69 04/14/23 07:55 Resp 20 04/14/23 07:55 BP 110/53 L 04/14/23 07:55 Pulse Ox 94 04/14/23 07:55 O2 Del Method Nasal Cannula 04/14/23 07:55 O2 Flow Rate 2 04/14/23 07:55 Oxygen Flow Rate 3 03/15/23 18:32 BMI result Body Mass Index 44.3 Const: Other: General awake alert, resting comfortably in no acute distress. Neck supple no JVD. CVS regular rate rhythm, Respiratory lungs clear to auscultation, no respiratory distress, no wheeze, no rhonchi. Gastrointestinal abdomen soft, non tender, bowel sounds audible,no guarding , no rigidity. Extremities no pitting edema. Neuro non focal, moving all 4 extremity, speech clear. Psych appropriate affect Objective Data Active Medications Acetaminophen (Acetaminophen 325 Mg Tablet) 975 mg PO TID [facility] Last Admin: 04/14/23 08:27 Dose: 975 mg Documented By: KARINE Al Hydroxide/Mg Hydroxide (Magnesium Hydrox/Alum Hydrox 30 Ml Oral.Susp) 30 ml PO Q6H PRN PRN Reason: dyspepsia Albuterol Sulfate (Albuterol Sulfate 90 Mcg 8 Gm Inhaler) 2 puff INHALE Q4H PRN PRN Reason: Wheezing Aspirin (Aspirin Enteric Coated 81 Mg Tablet.) 81 mg PO DAILY [facility] Last Admin: 04/14/23 08:28 Dose: 81 mg Documented By: KARINE Atorvastatin Calcium (Atorvastatin Calcium 40 Mg Tablet) 40 mg PO BEDTIME [facility] Last Admin: 04/13/23 19:57 Dose: 40 mg Documented By: SARIKA Benzonatate (Benzonatate 100 Mg Capsule) 200 mg PO TID [facility] Last Admin: 04/14/23 08:27 Dose: 200 mg Documented By: KARINE Carvedilol (Carvedilol 3.125 Mg Tablet) 3.125 mg PO BID [facility]; Protocol Last Admin: 04/14/23 08:28 Dose: 3.125 mg Documented By: KARINE Clopidogrel Bisulfate (Clopidogrel Bisulfate 75 Mg Tablet) 75 mg PO DAILY [facility] Last Admin: 04/14/23 08:28 Dose: 75 mg Documented By: KARINE Cyanocobalamin (Cyanocobalamin (Vitamin B-12) 1,000 Mcg/Ml Vial) 1,000 mcg IM Q30D [facility] Last Admin: 04/08/23 11:46 Dose: 1,000 mcg Documented By: ASHLEE Dextrose (Dextrose 50 % 25 Gm/50 Ml Syringe) 25 gm IVPUSH Q15M PRN; Protocol PRN Reason: per Hypoglycemia Standing Ord. Docusate Sodium (Docusate Sodium 100 Mg Capsule) 100 mg PO BID [facility] Last Admin: 04/14/23 08:28 Dose: 100 mg Documented By: KARINE Enoxaparin Sodium (Enoxaparin Sodium 40 Mg/0.4 Ml Syringe) 40 mg SUBCUT Q24H [facility] Last Admin: 04/13/23 19:58 Dose: 40 mg Documented By: SARIKA Fluticasone/Umeclidinium/Vilanterol (Fluticasone/Umeclidinium/Vilanterol 200/62.5/25 Blst.W.Dev) 1 puff INHALE RDAILY [facility] Last Admin: 04/14/23 07:33 Dose: 1 puff Documented By: JASON Folic Acid (Folic Acid 1 Mg Tablet) 1 mg PO DAILY [facility] Last Admin: 04/14/23 08:28 Dose: 1 mg Documented By: KARINE Furosemide (Furosemide 40 Mg Tablet) 40 mg PO DAILY [facility]; Protocol Last Admin: 04/14/23 08:28 Dose: 40 mg Documented By: KARINE Gabapentin (Gabapentin 300 Mg Capsule) 300 mg PO TID [facility] Last Admin: 04/14/23 08:28 Dose: 300 mg Documented By: KARINE Glucose (Glucose Gel 15 Gm Gel..Gram.) 15 gm PO Q15M PRN; Protocol PRN Reason: per Hypoglycemia Standing Ord. Insulin Human Lispro (Insulin Lispro 100 Unit/Ml 3 Ml Vial) 0 unit SUBCUT QIDACHS [facility]; Protocol Last Admin: 04/14/23 07:34 Dose: Not Given Documented By: KARINE Non-Admin Reason: No Insulin Coverage Lactulose (Lactulose 20 Gm/30 Ml Solution) 10 gm PO DAILY [facility] Last Admin: 04/14/23 08:26 Dose: 10 gm Documented By: KARINE Melatonin (Melatonin 3 Mg Tablet) 6 mg PO BEDTIME PRN PRN Reason: Insomnia Metformin HCl (Metformin Hcl Er 500 Mg Tab.Er.24h) 500 mg PO DAILY@1800 [facility] Last Admin: 04/13/23 19:58 Dose: 500 mg Documented By: SARIKA Omeprazole (Omeprazole 20 Mg Capsule.Dr) 20 mg PO DAILY@0630 [facility] Last Admin: 04/14/23 06:32 Dose: 20 mg Documented By: MARIAELENA Ondansetron HCl (Ondansetron Hcl 4 Mg/2 Ml Vial) 4 mg IVPUSH Q8H PRN PRN Reason: Nausea and Vomiting Last Admin: 04/05/23 12:43 Dose: 4 mg Documented By: FERMIN Polyethylene Glycol (Polyethylene Glycol 3350 17 Gm Powd.Pack) 17 gm PO DAILY [facility] Last Admin: 04/14/23 08:30 Dose: 17 gm Documented By: KARINE Quetiapine Fumarate (Quetiapine Fumarate 50 Mg Tablet) 50 mg PO TID [facility] Last Admin: 04/14/23 08:28 Dose: 50 mg Documented By: KARINE Senna (Sennosides 8.6 Mg Tablet) 17.2 mg PO BEDTIME [facility] Last Admin: 04/13/23 20:07 Dose: Not Given Documented By: SARIKA Non-Admin Reason: Runny BMS Sertraline HCl (Sertraline Hcl 100 Mg Tablet) 100 mg PO DAILY [facility] Last Admin: 04/14/23 08:28 Dose: 100 mg Documented By: KARINE Sodium Chloride (0.9 % Sodium Chloride Flush 3 Ml Syringe) 3 ml IVFLUSH QSHIFT [facility] Last Admin: 04/14/23 08:41 Dose: Not Given Documented By: KARINE Non-Admin Reason: No Access Trazodone HCl (Trazodone Hcl 50 Mg Tablet) 50 mg PO BEDTIME [facility] Last Admin: 04/13/23 19:58 Dose: 50 mg Documented By: SARIKA Labs 04/09/23 08:41 04/09/23 08:41 Labs: Laboratory Results - last 24 hr 04/13/23 04/13/23 04/13/23 11:10 16:04 19:58 POC Glucose 182 H 193 H 215 H 04/14/23 07:26 POC Glucose 118 H Assessment and Plan (1) Major neurocognitive disorder: Status: Acute Plan This is a 72-year-old male with a PMH significant for?CAD, [id number]-jydodwyqe diabetes type 2, who initially presented presents to the ED on 03/15/2023 from SNF after reportedly having hallucinations and being combative with staff. Pt was placed in physician observation in the ED until he became hypoxic and tested positive for COVID admitted to the medical floor for treatment and further evaluation of acute hypoxic respiratory failure in the setting of COVID infection. Acute hypoxic respiratory failure in the setting COVID 19 infection no shortness of breath, cough improving Finished course of dexamethasone and remdesivir currently back on baseline home oxygen 2 L Continue inhalers, DuoNeb as needed, cough medication, and GI prophylaxis with Prilosec. HTN Stable blood pressures Continue Carvedilol and follow BP CAD/HLD Continue statin, aspirin, Coreg and Plavix, ldl 52 / t.chol 101, dose of statin decreased to 40 mg Mild persistence asthma no acute exacerbation Continue home inhalers Jja-ylajlux-npqagjvex type 2 diabetes mild hyperglycemia due to steroids on sliding scale insulin and diabetic diet, will resume home medication on discharge. Mood disorder/dementia Continue trazodone, sertraline and continue seroquel as ordered by Psychiatry. Morbid obesity BMI 44.3 recommend low-calorie diet. Disposition PT continue to recommend short-term rehab, for home patient will need wheelchair, bed with trapeze for repositioning further DME will be determined by PT Full Code DVT Prophylaxis: Lovenox requires continued hospital stay for safe disposition . Quality Stroke Does the patient have a stroke diagnosis?: No VTE Prior VTE?: No VTE Risk Level:: Medical - moderate - high VTE Device Contraindication: Treatment Not Indicated VTE Drug Contraindication: N/A - Med Ordered
[2023-04-14 11:05] LABS: Glucose, Whole Blood 230 mg/dL (60-115)
[2023-04-14] MEDS: Insulin Lispro 100 UNIT/ML 3 ML VIAL SUBCUT ×2 (11:37→16:07)
--- NOTE | 2023-04-14 13:31 | MHC.CM.PN ---
EMR reviewed and per MD rounds, pt remains medically cleared for D/C, but unable to due to placement issue, pt no longer has any SNF bed offers with 179 referrals [facility] throughout [place] and [place]. [facility] and per Sofia the primary care sales representative, they can help us with getting him services in the home including PT/OT/SN and DME, [facility]. CM will continue to follow.
--- NOTE | 2023-04-14 14:51 | HO.WOUND ---
Wound Consult: Initial 72yr old?M admitted to [facility] [place] on 04/02 - See progress notes and H&P for detailed history.? Wound consult placed for Back and Buttock wound.? Arrival to bedside pt was sitting in chair and not currently able to stand for assessment - discussed with direct care team upon return to bed will assess skin. Reviewed photos provided by staff and are documented below. Will attempt assessment in future when patient returns to bed. Back Etiology: ??Unknown Etiology Measurements: pin point opening Drainage / Odor: serosang drainage per direct care team - fluctuance noted Pain: pt denies Goals of Treatment: ?foam for exudate absorption until further assessment Bilateral buttock Etiology: Thrombocytopenia Wound Bed: scattered areas of dark purple pigmentation nonblanchable - will need further assessment however the shape and locations are not consisitent with pressure injury. The patients lab values were reviewed and he is noted to have Platelet count of 144 as of 04/09/23 vs COVID 19 diagnosis with covid like skin manifestations of microthrombi scattered throughout. Drainage / Odor: None per direct care team Edges: ? irregular [place]ha wound: ? observed MASD Goals of Treatment: ? barrier cream to protect from friction and moisture - off load pressure Recommendations: 1. Turn and Reposition every 2 hours and as needed for patient comfort.? Use pillows or wedges to support off loading positions. Currently in Bariatric Bed. 2. Off Load all bony prominences with use of pillows and heel boots if needed.? Apply Preventative foams where needed. ? 3. Monitor for incontinence and moisture control, use barrier creams when needed for prevention and treatment. Do not use brief for incontinence control. 4. Provide adequate and supplemental nutrition.? 5. When applicable maintain blood glucose levels per Providers order. Re-consult wound care Nurse for wound deterioration or wound changes.
[2023-04-14 15:24] LABS: Glucose, Whole Blood 154 mg/dL (60-115)
[2023-04-14] MEDS: metFORMIN HCl ER 500 MG TAB.ER.24H PO (18:16)
[2023-04-14 20:01] LABS: Glucose, Whole Blood 176 mg/dL (60-115)
[2023-04-14] MEDS: Enoxaparin Sodium 40 MG/0.4 ML SYRINGE SUBCUT (22:02)
[2023-04-15 03:44] VITALS: BP 137/86; PULSE 80; RESP 19; TEMP 37; O2SAT 94
[2023-04-15] MEDS: Omeprazole 20 MG CAPSULE.DR PO (05:26)
[2023-04-15 06:59] VITALS: BP 134/64; PULSE 89; RESP 20; TEMP 36.1; O2SAT 95
[2023-04-15 07:06] LABS: Glucose, Whole Blood 120 mg/dL (60-115)
[2023-04-15] MEDS: Fluticasone/Umeclidinium/Vilanterol 200/62.5/25 BLST.W.DEV 1 PUFF INHALE (07:41)
[2023-04-15 07:42] VITALS: PULSE 86; RESP 18; O2SAT 97
[2023-04-15] MEDS: Aspirin Enteric Coated 81 MG TABLET.DR PO (09:15)
[2023-04-15] MEDS: Sertraline HCL 100 MG TABLET PO (09:15)
[2023-04-15] MEDS: Furosemide 40 MG TABLET PO (09:15)
[2023-04-15] MEDS: carvediloL 3.125 MG TABLET PO ×2 (09:15→21:56)
[2023-04-15] MEDS: Folic Acid 1 MG TABLET PO ×2 (09:15)
[2023-04-15] MEDS: Clopidogrel Bisulfate 75 MG TABLET PO (09:15)
[2023-04-15] MEDS: Acetaminophen 325 MG TABLET 975 MG PO ×3 (09:16→21:50)
[2023-04-15] MEDS: Benzonatate 100 MG CAPSULE 200 MG PO (09:16)
[2023-04-15] MEDS: Docusate Sodium 100 MG CAPSULE PO (09:17)
[2023-04-15] MEDS: Lactulose 20 GM/30 ML SOLUTION 10 GM PO (09:17)
[2023-04-15] MEDS: Gabapentin 300 MG CAPSULE PO ×3 (09:17→21:50)
[2023-04-15] MEDS: polyethylene glycoL 3350 17 GM POWD.PACK PO (09:17)
[2023-04-15] MEDS: QUEtiapine Fumarate 50 MG TABLET PO (09:18)
[2023-04-15 11:34] LABS: Glucose, Whole Blood 182 mg/dL (60-115)
[2023-04-15] MEDS: Insulin Lispro 100 UNIT/ML 3 ML VIAL SUBCUT (12:08)
--- NOTE | 2023-04-15 13:30 | HO.WOUND ---
Wound Consult: Follow up 72yr old?M admitted [place] [facility] [place] - See progress notes and H&P for detailed history.? Wound consult placed for Back and Buttock wound.? Arrival to bedside pt was in bed and able to reposition with assist to have me assess hi back and buttock. I will defer to Dr. Molina who also assessed his back - etiology remains unknown there is a pinpoint opening oozing serosang fluid - there is significant pain the the area and a large moveable indurated area associated with significant pain when palpated. There was no fluctuance noted and the pink pigmentation is blanchable - no warmth detected at the time of my assessment. I suggest imaging or surgical consult for etiology. Per my discussion with Dr. Molina she will recommend warm compresses and she will followup - discussed with direct care team to cover with dry dressing for drainage absorption. Back Etiology: ??Unknown Etiology Measurements: pin point opening Drainage / Odor: serosang drainage induration noted - no fluctuance noted Pain: patient reports significant pain when assessed Goals of Treatment: ?foam or dry gauze dressing for exudate absorption until further assessment and follow up with Dr. Swartz Bilateral buttock Etiology: Thrombocytopenia vs Covid 19 related microthrombi - not consisitent with MASD or Pressure Presentation Wound Bed: scattered areas of dark purple pigmentation nonblanchable intact tissue the right buttock is not over a bony prominence the left buttock are red paco and are blanchable throuhgout - etiology is not consistent with typical pressure or MASD presentation. Pressure typically does not scattered and present in nonpressure points and have patterns of intact non-injured tissue. The patients lab values were reviewed and he is noted to have Platelet count of 144 as of 04/09/23 vs COVID 19 diagnosis with covid like skin manifestations of microthrombi scattered throughout. Drainage / Odor: None per direct care team Edges: ? irregular [place]ha wound: No induration no fluctuance and no warmth noted Goals of Treatment: ? barrier cream to protect from friction and moisture - off load pressure Recommendations: 1. Turn and Reposition every 2 hours and as needed for patient comfort.? Use pillows or wedges to support off loading positions. Currently in Bariatric Bed. 2. Off Load all bony prominences with use of pillows and heel boots if needed.? Apply Preventative foams where needed. ? 3. Monitor for incontinence and moisture control, use barrier creams when needed for prevention and treatment. Do not use brief for incontinence control. 4. Provide adequate and supplemental nutrition.? 5. When applicable maintain blood glucose levels per Providers order. 6. Sacrum and buttocks - Off Load Pressure - Cleanse with PH balance spray or wipes, pat dry. ?Apply thin layer of barrier cream to wound bed - only pat and dab no scrub and rub when soiling occurs. Reapply thin layer PRN after each episode of incontinence. 7. Back - Cleanse with NS pat dry. Cover with foam dressing or dry gauze dressing for drainage absorption. Defer to Dr. Swartz. Re-consult wound care Nurse for wound deterioration or wound changes.
--- NOTE | 2023-04-15 13:42 | MHC.CM.PN ---
This CM called the [facility] to inquire about any updates regarding them assisting with getting the pt any additional services/DME at home. Per the [facility], they are waiting for their MD to review his clinicals at this time, which will likely happen by tomorrow.
--- NOTE | 2023-04-15 14:01 | HO.PM.IMPN ---
Subjective Subjective Date of Service: 04/15/23 Interval History: Complaining of discomfort left-sided mid back, patient is awake historian complaining of having a mass there for almost a year and then says it is comes and goes, noted to have serosanguineous stain on bed sheet, denies fever, no chills, tolerating diet, no other acute issues overnight. Review of Systems All other system reviewed and negative. Physical Exam Vital Signs: Vital Signs: Last Vital Signs Temp 96.9 F 04/15/23 06:59 Pulse 86 04/15/23 07:42 Resp 18 04/15/23 07:42 BP 134/64 04/15/23 06:59 Pulse Ox 95 04/15/23 06:59 O2 Del Method Nasal Cannula 04/15/23 06:59 O2 Flow Rate 2 04/15/23 06:59 Oxygen Flow Rate 3 03/15/23 18:32 BMI result Body Mass Index 44.3 Const: Other: General awake alert, resting comfortably in no acute distress. Neck supple no JVD. CVS regular rate rhythm, Respiratory lungs clear to auscultation, no respiratory distress, no wheeze, no rhonchi. Gastrointestinal abdomen soft, non tender, bowel sounds audible,no guarding , no rigidity. Mid back left-sided oval area of subcutaneous mass, no fluctuation, no warmth, no redness mild discomfort with palpation, no opening or drainage noted mild stain on bedsheet Extremities no pitting edema. Neuro non focal, moving all 4 extremity, speech clear. Psych appropriate affect Objective Data Active Medications Acetaminophen (Acetaminophen 325 Mg Tablet) 975 mg PO TID [facility] Last Admin: 04/15/23 09:16 Dose: 975 mg Documented By: RADHA Al Hydroxide/Mg Hydroxide (Magnesium Hydrox/Alum Hydrox 30 Ml Oral.Susp) 30 ml PO Q6H PRN PRN Reason: dyspepsia Albuterol Sulfate (Albuterol Sulfate 90 Mcg 8 Gm Inhaler) 2 puff INHALE Q4H PRN PRN Reason: Wheezing Aspirin (Aspirin Enteric Coated 81 Mg Tablet.) 81 mg PO DAILY [facility] Last Admin: 04/15/23 09:15 Dose: 81 mg Documented By: RADHA Atorvastatin Calcium (Atorvastatin Calcium 40 Mg Tablet) 40 mg PO BEDTIME [facility] Last Admin: 04/14/23 21:57 Dose: Not Given Documented By: ARLEEN Non-Admin Reason: pt drowsy, held med Benzonatate (Benzonatate 100 Mg Capsule) 200 mg PO TID [facility] Last Admin: 04/15/23 09:16 Dose: 200 mg Documented By: RADHA Carvedilol (Carvedilol 3.125 Mg Tablet) 3.125 mg PO BID [facility]; Protocol Last Admin: 04/15/23 09:15 Dose: 3.125 mg Documented By: RADHA Clopidogrel Bisulfate (Clopidogrel Bisulfate 75 Mg Tablet) 75 mg PO DAILY [facility] Last Admin: 04/15/23 09:15 Dose: 75 mg Documented By: RADHA Cyanocobalamin (Cyanocobalamin (Vitamin B-12) 1,000 Mcg/Ml Vial) 1,000 mcg IM Q30D [facility] Last Admin: 04/08/23 11:46 Dose: 1,000 mcg Documented By: ASHLEE Dextrose (Dextrose 50 % 25 Gm/50 Ml Syringe) 25 gm IVPUSH Q15M PRN; Protocol PRN Reason: per Hypoglycemia Standing Ord. Docusate Sodium (Docusate Sodium 100 Mg Capsule) 100 mg PO BID [facility] Last Admin: 04/15/23 09:17 Dose: 100 mg Documented By: RADHA Enoxaparin Sodium (Enoxaparin Sodium 40 Mg/0.4 Ml Syringe) 40 mg SUBCUT Q24H [facility] Last Admin: 04/14/23 22:02 Dose: 40 mg Documented By: ARLEEN Fluticasone/Umeclidinium/Vilanterol (Fluticasone/Umeclidinium/Vilanterol 200/62.5/25 Blst.W.Dev) 1 puff INHALE RDAILY [facility] Last Admin: 04/15/23 07:41 Dose: 1 puff Documented By: JASON Folic Acid (Folic Acid 1 Mg Tablet) 1 mg PO DAILY [facility] Last Admin: 04/15/23 09:15 Dose: 1 mg Documented By: RADHA Furosemide (Furosemide 40 Mg Tablet) 40 mg PO DAILY [facility]; Protocol Last Admin: 04/15/23 09:15 Dose: 40 mg Documented By: RADHA Gabapentin (Gabapentin 300 Mg Capsule) 300 mg PO TID [facility] Last Admin: 04/15/23 09:17 Dose: 300 mg Documented By: RADHA Glucose (Glucose Gel 15 Gm Gel..Gram.) 15 gm PO Q15M PRN; Protocol PRN Reason: per Hypoglycemia Standing Ord. Insulin Human Lispro (Insulin Lispro 100 Unit/Ml 3 Ml Vial) 0 unit SUBCUT QIDACHS [facility]; Protocol Last Admin: 04/15/23 12:08 Dose: 2 unit Documented By: SHERRYFAChong Lactulose (Lactulose 20 Gm/30 Ml Solution) 10 gm PO DAILY [facility] Last Admin: 04/15/23 09:17 Dose: 10 gm Documented By: RADHA Melatonin (Melatonin 3 Mg Tablet) 6 mg PO BEDTIME PRN PRN Reason: Insomnia Metformin HCl (Metformin Hcl Er 500 Mg Tab.Er.24h) 500 mg PO DAILY@1800 [facility] Last Admin: 04/14/23 18:16 Dose: 500 mg Documented By: KARINE Omeprazole (Omeprazole 20 Mg Capsule.Dr) 20 mg PO DAILY@0630 [facility] Last Admin: 04/15/23 05:26 Dose: 20 mg Documented By: ARLEEN Ondansetron HCl (Ondansetron Hcl 4 Mg/2 Ml Vial) 4 mg IVPUSH Q8H PRN PRN Reason: Nausea and Vomiting Last Admin: 04/05/23 12:43 Dose: 4 mg Documented By: FERMIN Polyethylene Glycol (Polyethylene Glycol 3350 17 Gm Powd.Pack) 17 gm PO DAILY [facility] Last Admin: 04/15/23 09:17 Dose: 17 gm Documented By: RADHA Quetiapine Fumarate (Quetiapine Fumarate 50 Mg Tablet) 50 mg PO TID [facility] Last Admin: 04/15/23 09:18 Dose: 50 mg Documented By: RADHA Senna (Sennosides 8.6 Mg Tablet) 17.2 mg PO BEDTIME [facility] Last Admin: 04/14/23 21:58 Dose: Not Given Documented By: ARLEEN Non-Admin Reason: pt drowsy, held med Sertraline HCl (Sertraline Hcl 100 Mg Tablet) 100 mg PO DAILY [facility] Last Admin: 04/15/23 09:15 Dose: 100 mg Documented By: RADHA Sodium Chloride (0.9 % Sodium Chloride Flush 3 Ml Syringe) 3 ml IVFLUSH QSHIFT [facility] Last Admin: 04/15/23 11:18 Dose: Not Given Documented By: PAIGE Non-Admin Reason: See Note Trazodone HCl (Trazodone Hcl 50 Mg Tablet) 50 mg PO BEDTIME [facility] Last Admin: 04/14/23 21:58 Dose: Not Given Documented By: ARLEEN Non-Admin Reason: pt MD tony held med Labs 04/09/23 08:41 04/09/23 08:41 Labs: Laboratory Results - last 24 hr 04/14/23 04/14/23 04/15/23 15:20 19:57 07:02 POC Glucose 154 H 176 H 120 H 04/15/23 11:31 POC Glucose 182 H Assessment and Plan (1) Major neurocognitive disorder: Status: Acute Plan This is a 72-year-old male with a PMH significant for?CAD, rfw-mewyykr-wyrazvdyb diabetes type 2, who initially presented presents to the ED on 03/15/2023 from [facility] after reportedly having hallucinations and being combative with staff. Pt was placed in physician observation in the ED until he became hypoxic and tested positive for COVID admitted to the medical floor for treatment and further evaluation of acute hypoxic respiratory failure in the setting of COVID infection. Acute hypoxic respiratory failure in the setting COVID 19 infection Finished course of dexamethasone and remdesivir currently back on baseline home oxygen 2 L Continue inhalers, DuoNeb as needed, cough medication, and GI prophylaxis with Prilosec. Left mid back discomfort Noted to have egg shaped mobile mass question subcutaneous nodule versus area of induration/boil, no fevers, no chills as per patient he has this for a year that comes and goes. Apply hot compresses, obtain surgical consult HTN Stable blood pressures Continue Carvedilol ,lasix and follow BP CAD/HLD Continue statin, aspirin, Coreg and Plavix, ldl 52 / t.chol 101, dose of statin decreased to 40 mg Mild persistence asthma no acute exacerbation Continue home inhalers Zhy-mrorobd-mjcaugxmt type 2 diabetes Better blood pressure control since finished course of dexamethasone on metformin sliding scale insulin and diabetic diet, Mood disorder/dementia Continue trazodone, sertraline and continue seroquel as ordered by Psychiatry. Will re-consult Psychiatry to assess for need of additional antipsychotic medications to avoid as needed Zyprexa. Morbid obesity BMI 44.3 recommend low-calorie diet. Disposition PT continue to recommend short-term rehab, for home patient will need wheelchair, bed with trapeze for repositioning further DME will be determined by PT Full Code DVT Prophylaxis: Lovenox requires continued hospital stay for safe disposition . Quality Stroke Does the patient have a stroke diagnosis?: No VTE Prior VTE?: No VTE Risk Level:: Medical - moderate - high VTE Device Contraindication: Treatment Not Indicated VTE Drug Contraindication: N/A - Med Ordered
[2023-04-15] MEDS: QUEtiapine Fumarate 100 MG TABLET PO ×2 (14:41→21:50)
--- NOTE | 2023-04-15 15:46 | PM.CNGS ---
History of Present Illness Consult details Consult date: 04/15/23 Narrative: Patient is a 72-year-old male with significant psychiatric history who was complaining of a soft tissue mass of his mid back which he has had over the years time. Surgical consultation for evaluation. Chart was reviewed and patient evaluated PMFSH Past Medical History Medical History (Updated 04/15/23 @ 15:49 by Juve Holloway MD) Non-insulin dependent type 2 diabetes mellitus HTN (hypertension) CAD (coronary artery disease) Unspecified asthma Social History Social History Household Members: Other Household Members Other:: unable to assess Patient Tobacco Use Status: Never used Tobacco Advance Directives Date on File: 03/15/23 service: No Meds Allergies Allergy/AdvReac Type Severity Reaction Status Date / Time No Known Allergies Allergy Verified 03/15/23 18:32 Active Medications: Current Medications Acetaminophen (Acetaminophen 325 Mg Tablet) 975 mg PO TID [facility] Last Admin: 04/15/23 14:41 Dose: 975 mg Al Hydroxide/Mg Hydroxide (Magnesium Hydrox/Alum Hydrox 30 Ml Oral.Susp) 30 ml PO Q6H PRN PRN Reason: dyspepsia Albuterol Sulfate (Albuterol Sulfate 90 Mcg 8 Gm Inhaler) 2 puff INHALE Q4H PRN PRN Reason: Wheezing Aspirin (Aspirin Enteric Coated 81 Mg Tablet.Dr) 81 mg PO DAILY [facility] Last Admin: 04/15/23 09:15 Dose: 81 mg Atorvastatin Calcium (Atorvastatin Calcium 40 Mg Tablet) 40 mg PO BEDTIME [facility] Last Admin: 04/14/23 21:57 Dose: Not Given Carvedilol (Carvedilol 3.125 Mg Tablet) 3.125 mg PO BID [facility]; Protocol Last Admin: 04/15/23 09:15 Dose: 3.125 mg Clopidogrel Bisulfate (Clopidogrel Bisulfate 75 Mg Tablet) 75 mg PO DAILY [facility] Last Admin: 04/15/23 09:15 Dose: 75 mg Cyanocobalamin (Cyanocobalamin (Vitamin B-12) 1,000 Mcg/Ml Vial) 1,000 mcg IM Q30D [facility] Last Admin: 04/08/23 11:46 Dose: 1,000 mcg Dextrose (Dextrose 50 % 25 Gm/50 Ml Syringe) 25 gm IVPUSH Q15M PRN; Protocol PRN Reason: per Hypoglycemia Standing Ord. Docusate Sodium (Docusate Sodium 100 Mg Capsule) 100 mg PO BID [facility] Last Admin: 04/15/23 09:17 Dose: 100 mg Enoxaparin Sodium (Enoxaparin Sodium 40 Mg/0.4 Ml Syringe) 40 mg SUBCUT Q24H [facility] Last Admin: 04/14/23 22:02 Dose: 40 mg Fluticasone/Umeclidinium/Vilanterol (Fluticasone/Umeclidinium/Vilanterol 200/62.5/25 Blst.W.Dev) 1 puff INHALE RDAILY [facility] Last Admin: 04/15/23 07:41 Dose: 1 puff Folic Acid (Folic Acid 1 Mg Tablet) 1 mg PO DAILY [facility] Last Admin: 04/15/23 09:15 Dose: 1 mg Furosemide (Furosemide 40 Mg Tablet) 40 mg PO DAILY [facility]; Protocol Last Admin: 04/15/23 09:15 Dose: 40 mg Gabapentin (Gabapentin 300 Mg Capsule) 300 mg PO TID [facility] Last Admin: 04/15/23 14:41 Dose: 300 mg Glucose (Glucose Gel 15 Gm Gel..Gram.) 15 gm PO Q15M PRN; Protocol PRN Reason: per Hypoglycemia Standing Ord. Insulin Human Lispro (Insulin Lispro 100 Unit/Ml 3 Ml Vial) 0 unit SUBCUT QIDACHS [facility]; Protocol Last Admin: 04/15/23 12:08 Dose: 2 unit Lactulose (Lactulose 20 Gm/30 Ml Solution) 10 gm PO DAILY [facility] Last Admin: 04/15/23 09:17 Dose: 10 gm Melatonin (Melatonin 3 Mg Tablet) 6 mg PO BEDTIME PRN PRN Reason: Insomnia Metformin HCl (Metformin Hcl Er 500 Mg Tab.Er.24h) 500 mg PO DAILY@1800 [facility] Last Admin: 04/14/23 18:16 Dose: 500 mg Omeprazole (Omeprazole 20 Mg Capsule.Dr) 20 mg PO DAILY@0630 [facility] Last Admin: 04/15/23 05:26 Dose: 20 mg Ondansetron HCl (Ondansetron Hcl 4 Mg/2 Ml Vial) 4 mg IVPUSH Q8H PRN PRN Reason: Nausea and Vomiting Last Admin: 04/05/23 12:43 Dose: 4 mg Polyethylene Glycol (Polyethylene Glycol 3350 17 Gm Powd.Pack) 17 gm PO DAILY [facility] Last Admin: 04/15/23 09:17 Dose: 17 gm Quetiapine Fumarate (Quetiapine Fumarate 100 Mg Tablet) 100 mg PO TID [facility] Last Admin: 04/15/23 14:41 Dose: 100 mg Senna (Sennosides 8.6 Mg Tablet) 17.2 mg PO BEDTIME [facility] Last Admin: 04/14/23 21:58 Dose: Not Given Sertraline HCl (Sertraline Hcl 100 Mg Tablet) 100 mg PO DAILY [facility] Last Admin: 04/15/23 09:15 Dose: 100 mg Sodium Chloride (0.9 % Sodium Chloride Flush 3 Ml Syringe) 3 ml IVFLUSH QSHIFT [facility] Last Admin: 04/15/23 11:18 Dose: Not Given Trazodone HCl (Trazodone Hcl 50 Mg Tablet) 50 mg PO BEDTIME [facility] Last Admin: 04/14/23 21:58 Dose: Not Given Home Medications Medication Instructions Recorded Confirmed Last Taken Type acetaminophen 500 mg tablet 1,000 mg PO TID Pain 03/15/23 03/15/23 03/15/23 History albuterol sulfate 90 mcg/actuation 2 puff inhalation Q4H PRN Wheezing 03/15/23 03/15/23 Unknown History aerosol inhaler aspirin 81 mg tablet,delayed 81 mg PO DAILY 03/15/23 03/15/23 03/15/23 History release carvedilol 3.125 mg tablet 3.125 mg PO BID 03/15/23 03/15/23 03/15/23 History cholecalciferol (vitamin D3) 1,250 1,250 mcg PO WE 03/15/23 03/15/23 03/10/23 History mcg (50,000 unit) tablet clopidogrel 75 mg tablet 75 mg PO DAILY 03/15/23 03/15/23 03/15/23 History cyanocobalamin (vitamin B-12) 100 mcg IM QMONTH 03/15/23 03/15/23 03/08/23 History 1,000 mcg/mL injection solution docusate sodium 100 mg capsule 100 mg PO BID 03/15/23 03/15/23 03/15/23 History (Colace) fluticasone fur. 200 mcg-umeclid 1 inh inhalation DAILY 03/15/23 03/15/23 03/15/23 History 62.5 mcg-vilant 25 mcg inhalat.powder (Trelegy Ellipta) folic acid 1 mg tablet 1 mg PO DAILY 03/15/23 03/15/23 03/15/23 History furosemide 40 mg tablet 40 mg PO DAILY 03/15/23 03/15/23 03/15/23 History gabapentin 300 mg capsule 300 mg PO TID 03/15/23 03/15/23 03/15/23 History lactulose 10 gram/15 mL oral 10 g PO DAILY 03/15/23 03/15/23 03/15/23 History solution metformin 500 mg tablet,extended 500 mg PO DAILY 03/15/23 03/15/23 03/15/23 History release 24 hr polyethylene glycol 3350 17 gram 17 g PO DAILY 03/15/23 03/15/23 03/15/23 History oral powder packet (Miralax) sennosides 8.6 mg tablet (senna) 17.2 mg PO BEDTIME 03/15/23 03/15/23 03/14/23 History sertraline 100 mg tablet 100 mg PO DAILY 03/15/23 03/15/23 03/15/23 History trazodone 50 mg tablet 50 mg PO BEDTIME 03/15/23 03/15/23 03/14/23 History Physical Exam Vital Signs: Vital Signs: Last Vital Signs Temp 96.9 F 04/15/23 06:59 Pulse 86 04/15/23 07:42 Resp 18 04/15/23 07:42 BP 134/64 04/15/23 06:59 Pulse Ox 95 04/15/23 06:59 O2 Del Method Nasal Cannula 04/15/23 06:59 O2 Flow Rate 2 04/15/23 06:59 Oxygen Flow Rate 3 03/15/23 18:32 BMI result Body Mass Index 44.3 Const: Other: Profoundly corpulent morbidly obese patient. Minimally cooperative. Back/Spine/Pelvis: Other: Examined most noteworthy of a proximally 4 x 3 cm soft tissue mass mid back assist with a large lipoma, less likely sebaceous cyst. No evidence erythema, fluctuance or infection. Results Labs 04/09/23 08:41 04/09/23 08:41 Labs: Abnormal lab results 04/14/23 04/15/23 04/15/23 Range/Units 19:57 07:02 11:31 POC Glucose 176 H 120 H 182 H (60-115) mg/dL Urine 03/15/23 Range/Units 21:46 Urine Color Yellow Urine Appearance Clear Urine pH 5.5 (5.0-9.0) Ur Specific [place] 1.020 (1.005-1.025) Urine Protein Negative (Neg-Trace) mg/dL Urine Glucose (UA) Negative (Negative) mg/dL All other labs normal. Assessment and Plan (1) Lipoma of back: Status: Acute Plan At present, there is no immediately urgency for this process. Once the patient is being discharged, he can be followed up in the surgical clinic for further evaluation for possible excision. All questions answered. We will follow up p.r.n.. Procedures Date of Service Date of Service: 04/15/23
[2023-04-15 15:55] VITALS: BP 120/63; PULSE 63; RESP 20; TEMP 36.2; O2SAT 96
[2023-04-15 16:28] LABS: Glucose, Whole Blood 117 mg/dL (60-115)
[2023-04-15] MEDS: metFORMIN HCl ER 500 MG TAB.ER.24H PO (17:13)
[2023-04-15 19:17] VITALS: BP 131/59; PULSE 71; RESP 20; TEMP 36.3; O2SAT 92
[2023-04-15 19:34] LABS: Glucose, Whole Blood 141 mg/dL (60-115)
[2023-04-15] MEDS: Enoxaparin Sodium 40 MG/0.4 ML SYRINGE SUBCUT (21:50)
[2023-04-15] MEDS: Atorvastatin Calcium 40 MG TABLET PO (21:50)
[2023-04-16] VITALS (8 sets, daily range): BP systolic 106–130; BP diastolic 56–62; PULSE 68–77; RESP 16–20; TEMP 36.3–36.6; O2SAT 92–98
[2023-04-16] MEDS: Omeprazole 20 MG CAPSULE.DR PO (05:10)
[2023-04-16 08:01] LABS: Glucose, Whole Blood 114 mg/dL (60-115)
[2023-04-16] MEDS: Fluticasone/Umeclidinium/Vilanterol 200/62.5/25 BLST.W.DEV 1 PUFF INHALE (08:36)
[2023-04-16] MEDS: Lactulose 20 GM/30 ML SOLUTION 10 GM PO (09:30)
[2023-04-16] MEDS: polyethylene glycoL 3350 17 GM POWD.PACK PO (09:30)
[2023-04-16] MEDS: Sertraline HCL 100 MG TABLET PO (09:30)
[2023-04-16] MEDS: Clopidogrel Bisulfate 75 MG TABLET PO (09:31)
[2023-04-16] MEDS: Acetaminophen 325 MG TABLET 975 MG PO ×3 (09:31→22:21)
[2023-04-16] MEDS: Docusate Sodium 100 MG CAPSULE PO (09:31)
[2023-04-16] MEDS: Gabapentin 300 MG CAPSULE PO ×3 (09:31→22:22)
[2023-04-16] MEDS: carvediloL 3.125 MG TABLET PO ×2 (09:32→22:22)
[2023-04-16] MEDS: QUEtiapine Fumarate 100 MG TABLET PO ×4 (09:32→22:27)
[2023-04-16] MEDS: Furosemide 40 MG TABLET PO (09:32)
[2023-04-16] MEDS: Aspirin Enteric Coated 81 MG TABLET.DR PO (09:32)
[2023-04-16 11:07] LABS: Glucose, Whole Blood 195 mg/dL (60-115)
[2023-04-16] MEDS: Insulin Lispro 100 UNIT/ML 3 ML VIAL SUBCUT (12:18)
--- NOTE | 2023-04-16 14:59 | MHC.CM.PN ---
EMR reviewed and per MD rounds, pt remains medically cleared for D/C pending bed offer. Currently 180 SNF referrals out and no bed offers. CM will continue to follow.
[2023-04-16 16:35] LABS: Glucose, Whole Blood 118 mg/dL (60-115)
[2023-04-16] MEDS: metFORMIN HCl ER 500 MG TAB.ER.24H PO (16:47)
--- NOTE | 2023-04-16 16:51 | HO.PM.IMPN ---
Subjective Subjective Date of Service: 04/16/23 Interval History: No acute issues overnight. Daughter requesting repeat speech eval to upgrade diet Review of Systems Denies chest pain Denies shortness of breath Denies nausea vomiting diarrhea Denies fever Physical Exam Vital Signs: Vital Signs: Last Vital Signs Temp 97.5 F 04/16/23 15:50 Pulse 69 04/16/23 15:50 Resp 20 04/16/23 15:50 BP 106/56 L 04/16/23 15:50 Pulse Ox 92 04/16/23 15:50 O2 Del Method Nasal Cannula 04/16/23 15:50 O2 Flow Rate 2 04/16/23 15:50 Oxygen Flow Rate 3 03/15/23 18:32 BMI result Body Mass Index 44.3 Const: Other: No acute distress Resp: Other: Clear to auscultation bilaterally no rales rhonchi or wheezes Cardio: Other: No S4; positive S1-S2; no S3 murmurs rubs or gallops GI: Other: Soft nontender nondistended normoactive bowel sounds Extrem: Other: No edema bilaterally Objective Data Active Medications Acetaminophen (Acetaminophen 325 Mg Tablet) 975 mg PO TID [facility] Last Admin: 04/16/23 14:34 Dose: 975 mg Documented By: SINA Al Hydroxide/Mg Hydroxide (Magnesium Hydrox/Alum Hydrox 30 Ml Oral.Susp) 30 ml PO Q6H PRN PRN Reason: dyspepsia Albuterol Sulfate (Albuterol Sulfate 90 Mcg 8 Gm Inhaler) 2 puff INHALE Q4H PRN PRN Reason: Wheezing Aspirin (Aspirin Enteric Coated 81 Mg Tablet.) 81 mg PO DAILY [facility] Last Admin: 04/16/23 09:32 Dose: 81 mg Documented By: ZORAIDA Atorvastatin Calcium (Atorvastatin Calcium 40 Mg Tablet) 40 mg PO BEDTIME [facility] Last Admin: 04/15/23 21:50 Dose: 40 mg Documented By: ARLEEN Carvedilol (Carvedilol 3.125 Mg Tablet) 3.125 mg PO BID [facility]; Protocol Last Admin: 04/16/23 09:32 Dose: 3.125 mg Documented By: ZORAIDA Clopidogrel Bisulfate (Clopidogrel Bisulfate 75 Mg Tablet) 75 mg PO DAILY [facility] Last Admin: 04/16/23 09:31 Dose: 75 mg Documented By: ZORAIDA Cyanocobalamin (Cyanocobalamin (Vitamin B-12) 1,000 Mcg/Ml Vial) 1,000 mcg IM Q30D [facility] Last Admin: 04/08/23 11:46 Dose: 1,000 mcg Documented By: ASHLEE Dextrose (Dextrose 50 % 25 Gm/50 Ml Syringe) 25 gm IVPUSH Q15M PRN; Protocol PRN Reason: per Hypoglycemia Standing Ord. Docusate Sodium (Docusate Sodium 100 Mg Capsule) 100 mg PO BID [facility] Last Admin: 04/16/23 09:31 Dose: 100 mg Documented By: ZORAIDA Enoxaparin Sodium (Enoxaparin Sodium 40 Mg/0.4 Ml Syringe) 40 mg SUBCUT Q24H [facility] Last Admin: 04/15/23 21:50 Dose: 40 mg Documented By: ARLEEN Fluticasone/Umeclidinium/Vilanterol (Fluticasone/Umeclidinium/Vilanterol 200/62.5/25 Blst.W.Dev) 1 puff INHALE RDAILY [facility] Last Admin: 04/16/23 08:36 Dose: 1 puff Documented By: MAURICE Folic Acid (Folic Acid 1 Mg Tablet) 1 mg PO DAILY [facility] Last Admin: 04/15/23 09:15 Dose: 1 mg Documented By: RADHA Furosemide (Furosemide 40 Mg Tablet) 40 mg PO DAILY [facility]; Protocol Last Admin: 04/16/23 09:32 Dose: 40 mg Documented By: ZORAIDA Gabapentin (Gabapentin 300 Mg Capsule) 300 mg PO TID [facility] Last Admin: 04/16/23 14:35 Dose: 300 mg Documented By: SINA Glucose (Glucose Gel 15 Gm Gel..Gram.) 15 gm PO Q15M PRN; Protocol PRN Reason: per Hypoglycemia Standing Ord. Insulin Human Lispro (Insulin Lispro 100 Unit/Ml 3 Ml Vial) 0 unit SUBCUT QIDACHS [facility]; Protocol Last Admin: 04/16/23 16:39 Dose: Not Given Documented By: SINA Non-Admin Reason: No Insulin Coverage Lactulose (Lactulose 20 Gm/30 Ml Solution) 10 gm PO DAILY [facility] Last Admin: 04/16/23 09:30 Dose: 10 gm Documented By: ZORAIDA Melatonin (Melatonin 3 Mg Tablet) 6 mg PO BEDTIME PRN PRN Reason: Insomnia Metformin HCl (Metformin Hcl Er 500 Mg Tab.Er.24h) 500 mg PO DAILY@1800 [facility] Last Admin: 04/16/23 16:47 Dose: 500 mg Documented By: SINA Omeprazole (Omeprazole 20 Mg Capsule.Dr) 20 mg PO DAILY@0630 [facility] Last Admin: 04/16/23 05:10 Dose: 20 mg Documented By: ARLEEN Ondansetron HCl (Ondansetron Hcl 4 Mg/2 Ml Vial) 4 mg IVPUSH Q8H PRN PRN Reason: Nausea and Vomiting Last Admin: 04/05/23 12:43 Dose: 4 mg Documented By: FERMIN Polyethylene Glycol (Polyethylene Glycol 3350 17 Gm Powd.Pack) 17 gm PO DAILY [facility] Last Admin: 04/16/23 09:30 Dose: 17 gm Documented By: ZROAIDA Quetiapine Fumarate (Quetiapine Fumarate 100 Mg Tablet) 100 mg PO TID [facility] Last Admin: 04/16/23 14:35 Dose: Not Given Documented By: SINA Non-Admin Reason: No Access Senna (Sennosides 8.6 Mg Tablet) 17.2 mg PO BEDTIME [facility] Last Admin: 04/15/23 21:59 Dose: Not Given Documented By: ARLEEN Non-Admin Reason: multiple bowel movments Sertraline HCl (Sertraline Hcl 100 Mg Tablet) 100 mg PO DAILY [facility] Last Admin: 04/16/23 09:30 Dose: 100 mg Documented By: ZORAIDA Sodium Chloride (0.9 % Sodium Chloride Flush 3 Ml Syringe) 3 ml IVFLUSH QSHIFT [facility] Last Admin: 04/16/23 16:39 Dose: Not Given Documented By: SINA Non-Admin Reason: No Access Trazodone HCl (Trazodone Hcl 50 Mg Tablet) 50 mg PO BEDTIME [facility] Last Admin: 04/15/23 21:59 Dose: Not Given Documented By: ARLEEN Non-Admin Reason: pt drowsy Labs 04/09/23 08:41 04/09/23 08:41 Labs: Laboratory Results - last 24 hr 04/15/23 04/16/23 04/16/23 19:23 07:03 10:55 POC Glucose 141 H 114 195 H 04/16/23 15:53 POC Glucose 118 H Assessment and Plan (1) COVID-19: Status: Acute (2) Hypoxia: Status: Acute (3) Major neurocognitive disorder: Status: Acute Plan This is a 72-year-old male with a PMH significant for?CAD, scu-rcdqjuv-cgckyapmn diabetes type 2, who initially presented presents to the ED on 03/15/[facility] after reportedly having hallucinations and being combative with staff. Pt was placed in physician observation in the ED until he became hypoxic and tested positive for COVID admitted to the medical floor for treatment and further evaluation of acute hypoxic respiratory failure in the setting of COVID infection. 1.Acute hypoxic respiratory failure in the setting COVID 19 infection -Finished course of dexamethasone and remdesivir -baseline home oxygen 2 L 2.Left mid back discomfort -lipoma -no acute intervention. 3.HTN -acceptable control on current therapies -adjust as indicated 4.Ozk-cihlyxm-ageteeluq type 2 diabetes -acceptable control on current therapies -lispro correctional scale -adjust as indicated Full Code Lovenox requires continued hospital stay for safe disposition . Quality Stroke Does the patient have a stroke diagnosis?: No VTE Prior VTE?: No VTE Risk Level:: Medical - moderate - high VTE Device Contraindication: Treatment Not Indicated VTE Drug Contraindication: N/A - Med Ordered
[2023-04-16 19:53] LABS: Glucose, Whole Blood 173 mg/dL (60-115)
[2023-04-16 20:36] LABS: Creatinine Clr Calc Pharmacy 77.3; Estimated Glomerular Filt Rate 54
[2023-04-16] MEDS: Enoxaparin Sodium 40 MG/0.4 ML SYRINGE SUBCUT (22:21)
[2023-04-16] MEDS: traZODone HCL 50 MG TABLET PO (22:22)
[2023-04-16] MEDS: Atorvastatin Calcium 40 MG TABLET PO (22:22)
[2023-04-17 03:04] VITALS: BP 128/60; PULSE 71; RESP 18; TEMP 36.1; O2SAT 94
[2023-04-17] MEDS: Omeprazole 20 MG CAPSULE.DR PO (05:48)
[2023-04-17 08:00] VITALS: BP 112/58; PULSE 84; RESP 16; TEMP 37; O2SAT 96
[2023-04-17] MEDS: Fluticasone/Umeclidinium/Vilanterol 200/62.5/25 BLST.W.DEV 1 PUFF INHALE (08:04)
[2023-04-17 08:06] VITALS: PULSE 71; RESP 18; O2SAT 97
[2023-04-17 09:14] LABS: Glucose, Whole Blood 107 mg/dL (60-115)
[2023-04-17] MEDS: Gabapentin 300 MG CAPSULE PO ×3 (10:14→20:52)
[2023-04-17] MEDS: Clopidogrel Bisulfate 75 MG TABLET PO (10:14)
[2023-04-17] MEDS: Sertraline HCL 100 MG TABLET PO (10:15)
[2023-04-17] MEDS: Aspirin Enteric Coated 81 MG TABLET.DR PO (10:15)
[2023-04-17] MEDS: Folic Acid 1 MG TABLET PO (10:15)
[2023-04-17] MEDS: Acetaminophen 325 MG TABLET 975 MG PO ×3 (10:15→20:52)
[2023-04-17] MEDS: QUEtiapine Fumarate 100 MG TABLET PO ×2 (10:15→20:54)
[2023-04-17] MEDS: Furosemide 40 MG TABLET PO (10:15)
[2023-04-17] MEDS: Lactulose 20 GM/30 ML SOLUTION 10 GM PO (10:16)
[2023-04-17] MEDS: carvediloL 3.125 MG TABLET PO ×2 (10:16→20:53)
[2023-04-17] MEDS: polyethylene glycoL 3350 17 GM POWD.PACK PO (10:16)
[2023-04-17] MEDS: Docusate Sodium 100 MG CAPSULE PO ×2 (10:16→20:52)
[2023-04-17 12:00] VITALS: BP 114/56; PULSE 100; RESP 20; TEMP 37.3; O2SAT 92
--- NOTE | 2023-04-17 12:09 | PC.NURSE ---
patient is alert and oriented, to self, place, time, and situation. Patient is a agitated about not getting out of bed. Screaming at [employer] and nurse using profound language. Patient is bedfast and unable to get up. When asked when patient last walked he stated 1958. Patient refused repositioning at time. Bed in lowest position, bed alarm on. Patient has camera in room.
[2023-04-17 12:12] LABS: Glucose, Whole Blood 185 mg/dL (60-115)
[2023-04-17] MEDS: Insulin Lispro 100 UNIT/ML 3 ML VIAL SUBCUT ×3 (12:52→20:52)
--- NOTE | 2023-04-17 14:00 | P.PNIM_ITS ---
Subjective Subjective Date of Service: 04/17/23 Interval History: No acute issues overnight. Await speech eval to upgrade diet Review of Systems Denies chest pain Denies shortness of breath Denies nausea vomiting diarrhea Denies fever Physical Exam 2 Vital Signs: Vital Signs: Last Vital Signs Temp 99.1 F 04/17/23 12:00 Pulse 100 04/17/23 12:00 Resp 20 04/17/23 12:00 BP 114/56 L 04/17/23 12:00 Pulse Ox 92 04/17/23 12:00 O2 Del Method Nasal Cannula 04/17/23 12:00 O2 Flow Rate 2 04/17/23 12:00 Oxygen Flow Rate 3 03/15/23 18:32 BMI result Body Mass Index 44.3 Const: Other: No acute distress Resp: Other: Clear to auscultation bilaterally no rales rhonchi or wheezes Cardio: Other: No S4; positive S1-S2; no S3 murmurs rubs or gallops GI: Other: Soft nontender nondistended normoactive bowel sounds Extrem: Other: No edema bilaterally Objective Data Active Medications Acetaminophen (Acetaminophen 325 Mg Tablet) 975 mg PO TID [facility] Last Admin: 04/17/23 10:15 Dose: 975 mg Documented By: TORRIE Al Hydroxide/Mg Hydroxide (Magnesium Hydrox/Alum Hydrox 30 Ml Oral.Susp) 30 ml PO Q6H PRN PRN Reason: dyspepsia Albuterol Sulfate (Albuterol Sulfate 90 Mcg 8 Gm Inhaler) 2 puff INHALE Q4H PRN PRN Reason: Wheezing Aspirin (Aspirin Enteric Coated 81 Mg Tablet.) 81 mg PO DAILY [facility] Last Admin: 04/17/23 10:15 Dose: 81 mg Documented By: TORRIE Atorvastatin Calcium (Atorvastatin Calcium 40 Mg Tablet) 40 mg PO BEDTIME [facility] Last Admin: 04/16/23 22:22 Dose: 40 mg Documented By: BE Carvedilol (Carvedilol 3.125 Mg Tablet) 3.125 mg PO BID [facility]; Protocol Last Admin: 04/17/23 10:16 Dose: 3.125 mg Documented By: TORRIE Clopidogrel Bisulfate (Clopidogrel Bisulfate 75 Mg Tablet) 75 mg PO DAILY [facility] Last Admin: 04/17/23 10:14 Dose: 75 mg Documented By: TORRIE Cyanocobalamin (Cyanocobalamin (Vitamin B-12) 1,000 Mcg/Ml Vial) 1,000 mcg IM Q30D [facility] Last Admin: 04/08/23 11:46 Dose: 1,000 mcg Documented By: ASHLEE Dextrose (Dextrose 50 % 25 Gm/50 Ml Syringe) 25 gm IVPUSH Q15M PRN; Protocol PRN Reason: per Hypoglycemia Standing Ord. Docusate Sodium (Docusate Sodium 100 Mg Capsule) 100 mg PO BID [facility] Last Admin: 04/17/23 10:16 Dose: 100 mg Documented By: TORRIE Enoxaparin Sodium (Enoxaparin Sodium 40 Mg/0.4 Ml Syringe) 40 mg SUBCUT Q24H [facility] Last Admin: 04/16/23 22:21 Dose: 40 mg Documented By: BE Fluticasone/Umeclidinium/Vilanterol (Fluticasone/Umeclidinium/Vilanterol 200/62.5/25 Blst.W.Dev) 1 puff INHALE RDAILY [facility] Last Admin: 04/17/23 08:04 Dose: 1 puff Documented By: DU Folic Acid (Folic Acid 1 Mg Tablet) 1 mg PO DAILY [facility] Last Admin: 04/17/23 10:15 Dose: 1 mg Documented By: TORRIE Furosemide (Furosemide 40 Mg Tablet) 40 mg PO DAILY [facility]; Protocol Last Admin: 04/17/23 10:15 Dose: 40 mg Documented By: TORRIE Gabapentin (Gabapentin 300 Mg Capsule) 300 mg PO TID [facility] Last Admin: 04/17/23 10:14 Dose: 300 mg Documented By: TORRIE Glucose (Glucose Gel 15 Gm Gel..Gram.) 15 gm PO Q15M PRN; Protocol PRN Reason: per Hypoglycemia Standing Ord. Insulin Human Lispro (Insulin Lispro 100 Unit/Ml 3 Ml Vial) 0 unit SUBCUT QIDACHS [facility]; Protocol Last Admin: 04/17/23 12:52 Dose: 2 unit Documented By: TORRIE Lactulose (Lactulose 20 Gm/30 Ml Solution) 10 gm PO DAILY [facility] Last Admin: 04/17/23 10:16 Dose: 10 gm Documented By: TORRIE Melatonin (Melatonin 3 Mg Tablet) 6 mg PO BEDTIME PRN PRN Reason: Insomnia Metformin HCl (Metformin Hcl Er 500 Mg Tab.Er.24h) 500 mg PO DAILY@1800 [facility] Last Admin: 04/16/23 16:47 Dose: 500 mg Documented By: SINA Omeprazole (Omeprazole 20 Mg Capsule.Dr) 20 mg PO DAILY@0630 [facility] Last Admin: 04/17/23 05:48 Dose: 20 mg Documented By: BE Ondansetron HCl (Ondansetron Hcl 4 Mg/2 Ml Vial) 4 mg IVPUSH Q8H PRN PRN Reason: Nausea and Vomiting Last Admin: 04/05/23 12:43 Dose: 4 mg Documented By: FERMIN Polyethylene Glycol (Polyethylene Glycol 3350 17 Gm Powd.Pack) 17 gm PO DAILY [facility] Last Admin: 04/17/23 10:16 Dose: 17 gm Documented By: TORRIE Quetiapine Fumarate (Quetiapine Fumarate 100 Mg Tablet) 100 mg PO TID [facility] Last Admin: 04/17/23 10:15 Dose: 100 mg Documented By: TORRIE Senna (Sennosides 8.6 Mg Tablet) 17.2 mg PO BEDTIME [facility] Last Admin: 04/16/23 22:23 Dose: Not Given Documented By: BE Non-Admin Reason: Patient Refused Sertraline HCl (Sertraline Hcl 100 Mg Tablet) 100 mg PO DAILY [facility] Last Admin: 04/17/23 10:15 Dose: 100 mg Documented By: TORRIE Sodium Chloride (0.9 % Sodium Chloride Flush 3 Ml Syringe) 3 ml IVFLUSH QSHIFT [facility] Last Admin: 04/17/23 10:14 Dose: Not Given Documented By: TORRIE Non-Admin Reason: No Access Trazodone HCl (Trazodone Hcl 50 Mg Tablet) 50 mg PO BEDTIME [facility] Last Admin: 04/16/23 22:22 Dose: 50 mg Documented By: BE Labs 04/09/23 08:41 04/16/23 20:10 Labs: Laboratory Results - last 24 hr 04/16/23 04/16/23 04/16/23 15:53 19:44 20:10 Estim Creat Clear Calc 77.3 Estimated GFR 54 POC Glucose 118 H 173 H 04/17/23 04/17/23 09:11 12:04 Estim Creat Clear Calc Estimated GFR POC Glucose 107 185 H Assessment and Plan (1) Major neurocognitive disorder: Status: Acute Plan This is a 72-year-old male with a PMH significant for?CAD, [id number]-jvpacjhgt diabetes type 2, who initially presented presents to the ED on 03/15/2023 from SNF after reportedly having hallucinations and being combative with staff. Pt was placed in physician observation in the ED until he became hypoxic and tested positive for COVID admitted to the medical floor for treatment and further evaluation of acute hypoxic respiratory failure in the setting of COVID infection. 1.Acute hypoxic respiratory failure in the setting COVID 19 infection -Finished course of dexamethasone and remdesivir -baseline home oxygen 2 L 2.Left mid back discomfort -lipoma -no acute intervention. 3.HTN -acceptable control on current therapies -adjust as indicated 4.Rqh-irqzoud-snfvybfst type 2 diabetes -acceptable control on current therapies -lispro correctional scale -adjust as indicated Full Code Lovenox requires continued hospital stay for safe disposition . Quality Stroke Does the patient have a stroke diagnosis?: No VTE Prior VTE?: No VTE Risk Level:: Medical - moderate - high VTE Device Contraindication: Treatment Not Indicated VTE Drug Contraindication: N/A - Med Ordered
[2023-04-17 15:33] VITALS: BP 136/66; PULSE 87; RESP 16; TEMP 36.9; O2SAT 91
[2023-04-17 16:46] LABS: Glucose, Whole Blood 154 mg/dL (60-115)
[2023-04-17] MEDS: metFORMIN HCl ER 500 MG TAB.ER.24H PO (17:15)
[2023-04-17 19:36] VITALS: BP 91/53; PULSE 80; RESP 20; TEMP 36.9; O2SAT 95
[2023-04-17] MEDS: Enoxaparin Sodium 40 MG/0.4 ML SYRINGE SUBCUT (20:52)
[2023-04-17] MEDS: Atorvastatin Calcium 40 MG TABLET PO (20:53)
[2023-04-17] MEDS: traZODone HCL 50 MG TABLET PO (20:53)
[2023-04-17] MEDS: Sennosides 8.6 MG TABLET 17.2 MG PO (20:53)
[2023-04-18 00:01] VITALS: BP 104/56; PULSE 73; RESP 20; TEMP 36.1; O2SAT 91
[2023-04-18 00:16] LABS: Glucose, Whole Blood 151 mg/dL (60-115)
[2023-04-18 03:21] VITALS: BP 148/69; PULSE 74; RESP 20; TEMP 36.3; O2SAT 93
[2023-04-18] MEDS: Omeprazole 20 MG CAPSULE.DR PO (05:51)
[2023-04-18 07:28] VITALS: BP 127/58; PULSE 90; RESP 18; TEMP 36.1; O2SAT 95
[2023-04-18] MEDS: Fluticasone/Umeclidinium/Vilanterol 200/62.5/25 BLST.W.DEV 1 PUFF INHALE (07:54)
[2023-04-18 07:55] VITALS: PULSE 90; RESP 18; O2SAT 95
[2023-04-18 07:57] LABS: Glucose, Whole Blood 146 mg/dL (60-115)
[2023-04-18] MEDS: polyethylene glycoL 3350 17 GM POWD.PACK PO (09:38)
[2023-04-18] MEDS: Furosemide 40 MG TABLET PO (09:38)
[2023-04-18] MEDS: Lactulose 20 GM/30 ML SOLUTION 10 GM PO (09:38)
[2023-04-18] MEDS: carvediloL 3.125 MG TABLET PO ×2 (09:38→21:56)
[2023-04-18] MEDS: Gabapentin 300 MG CAPSULE PO ×3 (09:39→21:56)
[2023-04-18] MEDS: QUEtiapine Fumarate 100 MG TABLET PO ×3 (09:39→21:56)
[2023-04-18] MEDS: Aspirin Enteric Coated 81 MG TABLET.DR PO (09:39)
[2023-04-18] MEDS: Folic Acid 1 MG TABLET PO (09:39)
[2023-04-18] MEDS: Clopidogrel Bisulfate 75 MG TABLET PO (09:39)
[2023-04-18] MEDS: Acetaminophen 325 MG TABLET 975 MG PO ×3 (09:39→21:56)
[2023-04-18] MEDS: Sertraline HCL 100 MG TABLET PO (09:39)
[2023-04-18] MEDS: Docusate Sodium 100 MG CAPSULE PO (09:39)
[2023-04-18 11:42] LABS: Glucose, Whole Blood 177 mg/dL (60-115)
[2023-04-18] MEDS: Insulin Lispro 100 UNIT/ML 3 ML VIAL SUBCUT (12:15)
--- NOTE | 2023-04-18 12:33 | HO.PM.IMPN ---
Subjective Subjective Date of Service: 04/18/23 Interval History: No acute issues overnight Review of Systems Denies chest pain Denies shortness of breath Denies nausea vomiting diarrhea Denies fever Physical Exam Vital Signs: Vital Signs: Last Vital Signs Temp 96.9 F 04/18/23 07:28 Pulse 90 04/18/23 07:55 Resp 18 04/18/23 07:55 BP 127/58 L 04/18/23 07:28 Pulse Ox 95 04/18/23 07:28 O2 Del Method Nasal Cannula 04/18/23 07:28 O2 Flow Rate 2 04/18/23 07:28 Oxygen Flow Rate 3 03/15/23 18:32 BMI result Body Mass Index 44.3 Const: Other: No acute distress Resp: Other: Clear to auscultation bilaterally no rales rhonchi or wheezes Cardio: Other: No S4; positive S1-S2; no S3 murmurs rubs or gallops GI: Other: Soft nontender nondistended normoactive bowel sounds Extrem: Other: No edema bilaterally Objective Data Active Medications Acetaminophen (Acetaminophen 325 Mg Tablet) 975 mg PO TID [facility] Last Admin: 04/18/23 09:39 Dose: 975 mg Documented By: TORRIE Al Hydroxide/Mg Hydroxide (Magnesium Hydrox/Alum Hydrox 30 Ml Oral.Susp) 30 ml PO Q6H PRN PRN Reason: dyspepsia Albuterol Sulfate (Albuterol Sulfate 90 Mcg 8 Gm Inhaler) 2 puff INHALE Q4H PRN PRN Reason: Wheezing Aspirin (Aspirin Enteric Coated 81 Mg Tablet.) 81 mg PO DAILY [facility] Last Admin: 04/18/23 09:39 Dose: 81 mg Documented By: TORRIE Atorvastatin Calcium (Atorvastatin Calcium 40 Mg Tablet) 40 mg PO BEDTIME [facility] Last Admin: 04/17/23 20:53 Dose: 40 mg Documented By: FERMIN Carvedilol (Carvedilol 3.125 Mg Tablet) 3.125 mg PO BID [facility]; Protocol Last Admin: 04/18/23 09:38 Dose: 3.125 mg Documented By: TORRIE Clopidogrel Bisulfate (Clopidogrel Bisulfate 75 Mg Tablet) 75 mg PO DAILY [facility] Last Admin: 04/18/23 09:39 Dose: 75 mg Documented By: TORRIE Cyanocobalamin (Cyanocobalamin (Vitamin B-12) 1,000 Mcg/Ml Vial) 1,000 mcg IM Q30D [facility] Last Admin: 04/08/23 11:46 Dose: 1,000 mcg Documented By: ASHLEE Dextrose (Dextrose 50 % 25 Gm/50 Ml Syringe) 25 gm IVPUSH Q15M PRN; Protocol PRN Reason: per Hypoglycemia Standing Ord. Docusate Sodium (Docusate Sodium 100 Mg Capsule) 100 mg PO BID [facility] Last Admin: 04/18/23 09:39 Dose: 100 mg Documented By: TORRIE Enoxaparin Sodium (Enoxaparin Sodium 40 Mg/0.4 Ml Syringe) 40 mg SUBCUT Q24H [facility] Last Admin: 04/17/23 20:52 Dose: 40 mg Documented By: FERMIN Fluticasone/Umeclidinium/Vilanterol (Fluticasone/Umeclidinium/Vilanterol 200/62.5/25 Blst.W.Dev) 1 puff INHALE RDAILY [facility] Last Admin: 04/18/23 07:54 Dose: 1 puff Documented By: DU Folic Acid (Folic Acid 1 Mg Tablet) 1 mg PO DAILY [facility] Last Admin: 04/18/23 09:39 Dose: 1 mg Documented By: TORRIE Furosemide (Furosemide 40 Mg Tablet) 40 mg PO DAILY [facility]; Protocol Last Admin: 04/18/23 09:38 Dose: 40 mg Documented By: TORRIE Gabapentin (Gabapentin 300 Mg Capsule) 300 mg PO TID [facility] Last Admin: 04/18/23 09:39 Dose: 300 mg Documented By: TORRIE Glucose (Glucose Gel 15 Gm Gel..Gram.) 15 gm PO Q15M PRN; Protocol PRN Reason: per Hypoglycemia Standing Ord. Insulin Human Lispro (Insulin Lispro 100 Unit/Ml 3 Ml Vial) 0 unit SUBCUT QIDACHS [facility]; Protocol Last Admin: 04/18/23 12:15 Dose: 2 unit Documented By: TORRIE Lactulose (Lactulose 20 Gm/30 Ml Solution) 10 gm PO DAILY [facility] Last Admin: 04/18/23 09:38 Dose: 10 gm Documented By: TORRIE Melatonin (Melatonin 3 Mg Tablet) 6 mg PO BEDTIME PRN PRN Reason: Insomnia Metformin HCl (Metformin Hcl Er 500 Mg Tab.Er.24h) 500 mg PO DAILY@1800 [facility] Last Admin: 04/17/23 17:15 Dose: 500 mg Documented By: TORRIE Omeprazole (Omeprazole 20 Mg Capsule.) 20 mg PO DAILY@0630 [facility] Last Admin: 04/18/23 05:51 Dose: 20 mg Documented By: DEBI Ondansetron HCl (Ondansetron Hcl 4 Mg/2 Ml Vial) 4 mg IVPUSH Q8H PRN PRN Reason: Nausea and Vomiting Last Admin: 04/05/23 12:43 Dose: 4 mg Documented By: FERMIN Polyethylene Glycol (Polyethylene Glycol 3350 17 Gm Powd.Pack) 17 gm PO DAILY [facility] Last Admin: 04/18/23 09:38 Dose: 17 gm Documented By: TORRIE Quetiapine Fumarate (Quetiapine Fumarate 100 Mg Tablet) 100 mg PO TID [facility] Last Admin: 04/18/23 09:39 Dose: 100 mg Documented By: TORRIE Senna (Sennosides 8.6 Mg Tablet) 17.2 mg PO BEDTIME [facility] Last Admin: 04/17/23 20:53 Dose: 17.2 mg Documented By: FERMIN Sertraline HCl (Sertraline Hcl 100 Mg Tablet) 100 mg PO DAILY [facility] Last Admin: 04/18/23 09:39 Dose: 100 mg Documented By: TORRIE Sodium Chloride (0.9 % Sodium Chloride Flush 3 Ml Syringe) 3 ml IVFLUSH QSHIFT [facility] Last Admin: 04/18/23 09:21 Dose: Not Given Documented By: TORRIE Non-Admin Reason: No Access Trazodone HCl (Trazodone Hcl 50 Mg Tablet) 50 mg PO BEDTIME [facility] Last Admin: 04/17/23 20:53 Dose: 50 mg Documented By: FERMIN Labs 04/09/23 08:41 04/16/23 20:10 Labs: Laboratory Results - last 24 hr 04/17/23 04/17/23 04/18/23 16:27 19:52 07:31 POC Glucose 154 H 151 H 146 H 04/18/23 11:15 POC Glucose 177 H Assessment and Plan (1) Major neurocognitive disorder: Status: Acute Plan This is a 72-year-old male with a PMH significant for?CAD, [id number]-qpautlvoe diabetes type 2, who initially presented presents to the ED on 03/15/2023 from SNF after reportedly having hallucinations and being combative with staff. Pt was placed in physician observation in the ED until he became hypoxic and tested positive for COVID admitted to the medical floor for treatment and further evaluation of acute hypoxic respiratory failure in the setting of COVID infection. 1.Acute hypoxic respiratory failure in the setting COVID 19 infection -Finished course of dexamethasone and remdesivir -baseline home oxygen 2 L 2.Left mid back discomfort -lipoma -no acute intervention. 3.HTN -acceptable control on current therapies -adjust as indicated 4.Toy-klddwbi-yvkqadycf type 2 diabetes -acceptable control on current therapies -lispro correctional scale -adjust as indicated Full Code Lovenox requires continued hospital stay for safe disposition . Quality Stroke Does the patient have a stroke diagnosis?: No VTE Prior VTE?: No VTE Risk Level:: Medical - moderate - high VTE Device Contraindication: Treatment Not Indicated VTE Drug Contraindication: N/A - Med Ordered
[2023-04-18 15:12] VITALS: BP 111/55; PULSE 85; RESP 18; TEMP 36.2; O2SAT 92
[2023-04-18 16:10] LABS: Glucose, Whole Blood 137 mg/dL (60-115)
[2023-04-18] MEDS: metFORMIN HCl ER 500 MG TAB.ER.24H PO (17:01)
[2023-04-18 19:54] VITALS: BP 127/60; PULSE 88; RESP 20; TEMP 37.4; O2SAT 92
[2023-04-18 21:28] LABS: Glucose, Whole Blood 196 mg/dL (60-115)
[2023-04-18] MEDS: Enoxaparin Sodium 40 MG/0.4 ML SYRINGE SUBCUT (21:55)
[2023-04-18] MEDS: Atorvastatin Calcium 40 MG TABLET PO (21:56)
[2023-04-18] MEDS: traZODone HCL 50 MG TABLET PO (21:57)
[2023-04-19 04:00] VITALS: BP 116/58; PULSE 78; RESP 20; TEMP 36.3; O2SAT 92
[2023-04-19] MEDS: Omeprazole 20 MG CAPSULE.DR PO (06:23)
[2023-04-19 07:32] VITALS: BP 136/75; PULSE 86; RESP 20; TEMP 36.3; O2SAT 95
[2023-04-19] MEDS: Fluticasone/Umeclidinium/Vilanterol 200/62.5/25 BLST.W.DEV 1 PUFF INHALE (07:59)
[2023-04-19 08:00] VITALS: PULSE 85; RESP 21; O2SAT 91
[2023-04-19] MEDS: Clopidogrel Bisulfate 75 MG TABLET PO (08:05)
[2023-04-19] MEDS: polyethylene glycoL 3350 17 GM POWD.PACK PO (08:05)
[2023-04-19] MEDS: Docusate Sodium 100 MG CAPSULE PO ×2 (08:05→21:01)
[2023-04-19] MEDS: Lactulose 20 GM/30 ML SOLUTION 10 GM PO (08:05)
[2023-04-19] MEDS: QUEtiapine Fumarate 100 MG TABLET PO ×3 (08:06→21:02)
[2023-04-19] MEDS: Gabapentin 300 MG CAPSULE PO ×3 (08:06→21:01)
[2023-04-19] MEDS: carvediloL 3.125 MG TABLET PO ×2 (08:06→21:01)
[2023-04-19] MEDS: Aspirin Enteric Coated 81 MG TABLET.DR PO (08:06)
[2023-04-19] MEDS: Folic Acid 1 MG TABLET PO (08:06)
[2023-04-19] MEDS: Sertraline HCL 100 MG TABLET PO (08:07)
[2023-04-19] MEDS: Furosemide 40 MG TABLET PO (08:07)
[2023-04-19 08:51] LABS: Glucose, Whole Blood 121 mg/dL (60-115)
[2023-04-19 11:35] VITALS: BP 109/57; PULSE 82; RESP 20; TEMP 36.7; O2SAT 94
[2023-04-19 12:14] LABS: Glucose, Whole Blood 123 mg/dL (60-115)
[2023-04-19 12:25] LABS: Glucose, Whole Blood 119 mg/dL (60-115)
--- NOTE | 2023-04-19 13:42 | MHC.SL.SWA ---
Speech Pathologist Impression: Risk of aspiration, oropharyngeal dysphagia, lethargy Risk of Aspiration Due to: Reduced Cognition Dysphasia Diet Status: Not appropriate for upgrade at this time. Recommend continue on Chopped/Advanced diet (NDD3) to assure softer foods that a pre-cut, thin liquids and pills whole with liquid. Patient requires 1-1 assistance at all meals. Plan to re-assess tomorrow. Liquid Consistency and Strategies for Safe Swallow: Liquid Intake Recommendation: Thin Liquid Intake Strategies: Small Sips Solid Food Consistency: Dietary Recommendations: Chopped/Advanced (NDD3) Additional Modifications to Solid Foods: Patient requires full assistance at all meals, including preparing tray by adding sauces and gravies, opening all items, orienting patient verbally to what is on his tray, then directly feeding patient. Oral Medication Intake: Whole with Liquid Please contact the pharmacy regarding appropriate crushable or liquid drug formulations that are available whenever modified delivery is recommended. Compensatory Strategies and Precautions to be Taken for Safe Swallow: Sitting Upright (90 deg) Double Swallow Small Bites and Sips Alternate Liquids/Solids Rate of Ingestion Change Oral Check Avoid Specific Foods Supervision While Eating and Drinking for Safe Swallow: Total Assistance (1:1) Foods to Avoid: Dry, tough to chew, sticky foods, large pieces of uncut meat. Swallowing Recommended Treatments: Compens. Strategy Educat. Recommendation for Speech: Inpatient Speech Therapy Comment: 1:1 assistance feeding Frequency/Duration: M-F during hospitalization Date Range for Service Req: Timeline to reassess: Chemical Engineering Professor Clinican/Clinical Fellow: No Supervisory Statement: I have reviewed and agree with the student/clinical fellow's documentation: N/A Speech Language Pathologist: Peace Shepherd M.A., CCC-[employer]
--- NOTE | 2023-04-19 14:04 | P.PNIM_ITS ---
Subjective Subjective Date of Service: 04/19/23 Interval History: No acute events overnight. Seen by speech who felt he is not ready for upgrade of diet Review of Systems Denies chest pain Denies shortness of breath Denies nausea vomiting diarrhea Denies fever Physical Exam 2 Vital Signs: Vital Signs: Last Vital Signs Temp 98.1 F 04/19/23 11:35 Pulse 82 04/19/23 11:35 Resp 20 04/19/23 11:35 BP 109/57 L 04/19/23 11:35 Pulse Ox 94 04/19/23 11:35 O2 Del Method Nasal Cannula 04/19/23 11:35 O2 Flow Rate 2 04/19/23 11:35 Oxygen Flow Rate 3 03/15/23 18:32 BMI result Body Mass Index 44.3 Const: Other: No acute distress Resp: Other: Clear to auscultation bilaterally no rales rhonchi or wheezes Cardio: Other: No S4; positive S1-S2; no S3 murmurs rubs or gallops GI: Other: Soft nontender nondistended normoactive bowel sounds Extrem: Other: No edema bilaterally Objective Data Active Medications Acetaminophen (Acetaminophen 325 Mg Tablet) 975 mg PO TID [facility] Last Admin: 04/19/23 08:36 Dose: Not Given Documented By: JOSH Non-Admin Reason: Max dosage exceeded Al Hydroxide/Mg Hydroxide (Magnesium Hydrox/Alum Hydrox 30 Ml Oral.Susp) 30 ml PO Q6H PRN PRN Reason: dyspepsia Albuterol Sulfate (Albuterol Sulfate 90 Mcg 8 Gm Inhaler) 2 puff INHALE Q4H PRN PRN Reason: Wheezing Aspirin (Aspirin Enteric Coated 81 Mg Tablet.) 81 mg PO DAILY [facility] Last Admin: 04/19/23 08:06 Dose: 81 mg Documented By: JOSH Atorvastatin Calcium (Atorvastatin Calcium 40 Mg Tablet) 40 mg PO BEDTIME [facility] Last Admin: 04/18/23 21:56 Dose: 40 mg Documented By: DEB Carvedilol (Carvedilol 3.125 Mg Tablet) 3.125 mg PO BID [facility]; Protocol Last Admin: 04/19/23 08:06 Dose: 3.125 mg Documented By: JOSH Clopidogrel Bisulfate (Clopidogrel Bisulfate 75 Mg Tablet) 75 mg PO DAILY [facility] Last Admin: 04/19/23 08:05 Dose: 75 mg Documented By: JOSH Cyanocobalamin (Cyanocobalamin (Vitamin B-12) 1,000 Mcg/Ml Vial) 1,000 mcg IM Q30D [facility] Last Admin: 04/08/23 11:46 Dose: 1,000 mcg Documented By: ASHLEE Dextrose (Dextrose 50 % 25 Gm/50 Ml Syringe) 25 gm IVPUSH Q15M PRN; Protocol PRN Reason: per Hypoglycemia Standing Ord. Docusate Sodium (Docusate Sodium 100 Mg Capsule) 100 mg PO BID [facility] Last Admin: 04/19/23 08:05 Dose: 100 mg Documented By: JOSH Enoxaparin Sodium (Enoxaparin Sodium 40 Mg/0.4 Ml Syringe) 40 mg SUBCUT Q24H [facility] Last Admin: 04/18/23 21:55 Dose: 40 mg Documented By: DEB Fluticasone/Umeclidinium/Vilanterol (Fluticasone/Umeclidinium/Vilanterol 200/62.5/25 Blst.W.Dev) 1 puff INHALE RDAILY [facility] Last Admin: 04/19/23 07:59 Dose: 1 puff Documented By: PERLA Folic Acid (Folic Acid 1 Mg Tablet) 1 mg PO DAILY [facility] Last Admin: 04/19/23 08:06 Dose: 1 mg Documented By: JOSH Furosemide (Furosemide 40 Mg Tablet) 40 mg PO DAILY [facility]; Protocol Last Admin: 04/19/23 08:07 Dose: 40 mg Documented By: JOSH Gabapentin (Gabapentin 300 Mg Capsule) 300 mg PO TID [facility] Last Admin: 04/19/23 08:06 Dose: 300 mg Documented By: JOSH Glucose (Glucose Gel 15 Gm Gel..Gram.) 15 gm PO Q15M PRN; Protocol PRN Reason: per Hypoglycemia Standing Ord. Insulin Human Lispro (Insulin Lispro 100 Unit/Ml 3 Ml Vial) 0 unit SUBCUT QIDACHS [facility]; Protocol Last Admin: 04/19/23 12:20 Dose: Not Given Documented By: JOSH Non-Admin Reason: No Insulin Coverage Lactulose (Lactulose 20 Gm/30 Ml Solution) 10 gm PO DAILY [facility] Last Admin: 04/19/23 08:05 Dose: 10 gm Documented By: JOSH Melatonin (Melatonin 3 Mg Tablet) 6 mg PO BEDTIME PRN PRN Reason: Insomnia Metformin HCl (Metformin Hcl Er 500 Mg Tab.Er.24h) 500 mg PO DAILY@1800 [facility] Last Admin: 04/18/23 17:01 Dose: 500 mg Documented By: TORRIE Omeprazole (Omeprazole 20 Mg Capsule.Dr) 20 mg PO DAILY@0630 [facility] Last Admin: 04/19/23 06:23 Dose: 20 mg Documented By: DEB Ondansetron HCl (Ondansetron Hcl 4 Mg/2 Ml Vial) 4 mg IVPUSH Q8H PRN PRN Reason: Nausea and Vomiting Last Admin: 04/05/23 12:43 Dose: 4 mg Documented By: FERMIN Polyethylene Glycol (Polyethylene Glycol 3350 17 Gm Powd.Pack) 17 gm PO DAILY [facility] Last Admin: 04/19/23 08:05 Dose: 17 gm Documented By: JOSH Quetiapine Fumarate (Quetiapine Fumarate 100 Mg Tablet) 100 mg PO TID [facility] Last Admin: 04/19/23 08:06 Dose: 100 mg Documented By: JOSH Senna (Sennosides 8.6 Mg Tablet) 17.2 mg PO BEDTIME [facility] Last Admin: 04/18/23 22:04 Dose: Not Given Documented By: DEB Non-Admin Reason: Patient Refused Sertraline HCl (Sertraline Hcl 100 Mg Tablet) 100 mg PO DAILY [facility] Last Admin: 04/19/23 08:07 Dose: 100 mg Documented By: JOSH Sodium Chloride (0.9 % Sodium Chloride Flush 3 Ml Syringe) 3 ml IVFLUSH QSHIFT [facility] Last Admin: 04/19/23 08:07 Dose: Not Given Documented By: JOSH Non-Admin Reason: No IV access Trazodone HCl (Trazodone Hcl 50 Mg Tablet) 50 mg PO BEDTIME [facility] Last Admin: 04/18/23 21:57 Dose: 50 mg Documented By: DEB Labs 04/09/23 08:41 04/16/23 20:10 Labs: Laboratory Results - last 24 hr 04/18/23 04/18/23 04/19/23 15:16 20:46 07:36 POC Glucose 137 H 196 H 121 H 04/19/23 04/19/23 11:40 12:11 POC Glucose 119 H 123 H Assessment and Plan (1) Major neurocognitive disorder: Status: Acute Plan This is a 72-year-old male with a PMH significant for?CAD, fvf-tclhzcn-swedatzpr diabetes type 2, who initially presented presents to the ED on 03/15/2023 from SNF after reportedly having hallucinations and being combative with staff. Pt was placed in physician observation in the ED until he became hypoxic and tested positive for COVID admitted to the medical floor for treatment and further evaluation of acute hypoxic respiratory failure in the setting of COVID infection. 1.Acute hypoxic respiratory failure in the setting COVID 19 infection -Finished course of dexamethasone and remdesivir -baseline home oxygen 2 L 2.Left mid back discomfort -lipoma -no acute intervention. 3.HTN -acceptable control on current therapies -adjust as indicated 4.Zav-upxrokg-vuofhclnj type 2 diabetes -acceptable control on current therapies -lispro correctional scale -adjust as indicated Full Code Lovenox requires continued hospital stay for safe disposition . Quality Stroke Does the patient have a stroke diagnosis?: No VTE Prior VTE?: No VTE Risk Level:: Medical - moderate - high VTE Device Contraindication: Treatment Not Indicated VTE Drug Contraindication: N/A - Med Ordered
[2023-04-19] MEDS: Acetaminophen 325 MG TABLET 975 MG PO ×2 (15:26→21:01)
--- NOTE | 2023-04-19 15:28 | MHC.CM.PN ---
EMR reviewed and per MD rounds, pt remains medically cleared for D/C, but unable to due to inability to find placement for pt. 180 referrals in careport updated today, and there are no bed offers. This CM called [facility] and they state they lost pts information but requested we fax it to them again to review. [facility] states they are full but can possibly add pt to the waitlist.
[2023-04-19 15:57] VITALS: BP 116/56; PULSE 80; RESP 22; TEMP 37; O2SAT 96
[2023-04-19 16:00] LABS: Glucose, Whole Blood 130 mg/dL (60-115)
[2023-04-19] MEDS: metFORMIN HCl ER 500 MG TAB.ER.24H PO (18:01)
[2023-04-19 19:08] VITALS: BP 129/56; PULSE 85; RESP 20; TEMP 36.7; O2SAT 92
[2023-04-19 20:08] LABS: Glucose, Whole Blood 194 mg/dL (60-115)
[2023-04-19] MEDS: Sennosides 8.6 MG TABLET 17.2 MG PO (21:01)
[2023-04-19] MEDS: traZODone HCL 50 MG TABLET PO (21:01)
[2023-04-19] MEDS: Atorvastatin Calcium 40 MG TABLET PO (21:01)
[2023-04-19] MEDS: Insulin Lispro 100 UNIT/ML 3 ML VIAL SUBCUT (21:02)
[2023-04-19] MEDS: Enoxaparin Sodium 40 MG/0.4 ML SYRINGE SUBCUT (21:02)
[2023-04-20] VITALS (7 sets, daily range): BP systolic 107–136; BP diastolic 55–60; PULSE 66–90; RESP 16–20; TEMP 36.1–36.9; O2SAT 91–98
[2023-04-20] MEDS: Fluticasone/Umeclidinium/Vilanterol 200/62.5/25 BLST.W.DEV 1 PUFF INHALE (07:55)
[2023-04-20 07:59] LABS: Glucose, Whole Blood 134 mg/dL (60-115)
[2023-04-20] MEDS: Docusate Sodium 100 MG CAPSULE PO (08:30)
[2023-04-20] MEDS: Aspirin Enteric Coated 81 MG TABLET.DR PO (08:30)
[2023-04-20] MEDS: Acetaminophen 325 MG TABLET 975 MG PO ×2 (08:30→16:49)
[2023-04-20] MEDS: Gabapentin 300 MG CAPSULE PO ×2 (08:31→16:50)
[2023-04-20] MEDS: polyethylene glycoL 3350 17 GM POWD.PACK PO (08:31)
[2023-04-20] MEDS: Lactulose 20 GM/30 ML SOLUTION 10 GM PO (08:31)
[2023-04-20] MEDS: Furosemide 40 MG TABLET PO (08:31)
[2023-04-20] MEDS: carvediloL 3.125 MG TABLET PO (08:31)
[2023-04-20] MEDS: Folic Acid 1 MG TABLET PO (08:31)
[2023-04-20] MEDS: QUEtiapine Fumarate 100 MG TABLET PO ×2 (08:31→16:50)
[2023-04-20] MEDS: Clopidogrel Bisulfate 75 MG TABLET PO (08:31)
[2023-04-20] MEDS: Sertraline HCL 100 MG TABLET PO (08:31)
[2023-04-20 12:30] LABS: Glucose, Whole Blood 130 mg/dL (60-115)
--- NOTE | 2023-04-20 15:18 | MHC.SL.DTX ---
Dysphagia Diet modifications: Last documented Solid diet consistencies: Chopped/Advanced (NDD3) Last documented Liquid consistency: Thin Changes made to current diet?: No: No Changes Liquid Consistency and Strategies: Liquid Intake Recommendation: Thin Compensatory Strategies for Safe Swallow: Small Sips Compensatory Strategies for Safe Swallow(b): Sitting Upright (90 deg) Double Swallow Small Bites and Sips Alternate Liquids/Solids Rate of Ingestion Change Oral Check Avoid Specific Foods Solid Food Consistency: Dietary Recommendations: Chopped/Advanced (NDD3) Additional Modifications to Solids: Patient requires full assistance at all meals, including preparing tray by adding sauces and gravies, opening all items, orienting patient verbally to what is on his tray, then directly feeding patient. Oral Medication Intake: Whole with Liquid Strategies and Precautions to be Taken for Safe Swallow: Sitting Upright (90 deg) Double Swallow Small Bites and Sips Alternate Liquids/Solids Rate of Ingestion Change Oral Check Avoid Specific Foods Supervision While Eating and/Drinking: Total Assistance (1:1) Foods to Avoid: Dry, tough to chew, sticky foods, large pieces of uncut meat. Swallowing Recommended Treatments: Compens. Strategy Educat. Recommendation for Speech: Inpatient Speech Therapy Comment: 1:1 assistance feeding Frequency/Duration: M-F during hospitalization Date Range for Service Req: Timeline to reassess: Additional Comments: Patient initially presented to the ED on 03/15 from SNF after reportedly having hallucinations and becoming combative with staff. Patient was placed in physician observation in the ED, until he became hypoxic and tested positive for COVID. He was admitted to the medical floor for treatment and further evaluation of acute hypoxic respiratory failure in the setting of COVID infection. Patient finished course of dexamethasone and remdesivir and is on 2L home 02 at baseline. Per EMR, patient is medically cleared for discharge pending bed offer. Speech services were discharged 10 days ago, as patient was stable on a chopped diet, recommended per CLAY DRY PRESS MIXER OPERATOR given patient's scattered dentition and recent choking event on hamburger. CLAY DRY PRESS MIXER OPERATOR was re-consulted per daughter's request to evaluate for a diet upgrade. Treatment: Pt seen in the morning with breakfast. He awakens to name, agrees to trial PO. He is provided items from his breakfast tray. Cut-up pancakes, un-moistened with butter or syrup 2/2 diabetic restrictions. He tolerates with delayed mastication and oral residue present. He is missing multiple teeth and uses his tongue to break down the bolus. He tolerates follow-up sips of Thin Liquids via straw with no overt s/s of aspiration. CLAY DRY PRESS MIXER OPERATOR returns later in the day. His Daughter is present. She purchased him a Cheeseburger and Onion Rings from a local restaurant and is feeding him with 1:1 assistance. CLAY DRY PRESS MIXER OPERATOR discussed results of this mornings treatment, and informed that I am not recommending upgrade to Regular Solids. Pt Dtr confirmed that she is his HCP, CLAY DRY PRESS MIXER OPERATOR informed of their right to informed refusal. Discussed with MD and RN. Confirmed that we will continue keeping him on a diet of Chopped/Advanced Solids (NDD3) during admission, but that Family is able to make their own decisions about feeding under supervision. Per RN, Pt Dtr reporting to RN that CLAY DRY PRESS MIXER OPERATOR said, he can have whatever he wants . Rail Signal Worker Clinican/Clinical Fellow: No Supervisory Statement: I have reviewed and agree with the student/clinical fellow's documentation: N/A Speech Language Pathologist: Royer Perez M.A., [facility]-CLAY DRY PRESS MIXER OPERATOR
[2023-04-20] MEDS: Insulin Lispro 100 UNIT/ML 3 ML VIAL SUBCUT (16:49)
[2023-04-20 16:50] LABS: Glucose, Whole Blood 157 mg/dL (60-115)
[2023-04-20] MEDS: metFORMIN HCl ER 500 MG TAB.ER.24H PO (16:50)
[2023-04-20 16:59] LABS: Glucose, Whole Blood 162 mg/dL (60-115)
[2023-04-20 20:15] LABS: Glucose, Whole Blood 141 mg/dL (60-115)
[2023-04-21] MEDS: Enoxaparin Sodium 40 MG/0.4 ML SYRINGE SUBCUT ×2 (00:03→20:18)
[2023-04-21] MEDS: Atorvastatin Calcium 40 MG TABLET PO ×2 (00:04→20:18)
[2023-04-21] MEDS: Acetaminophen 325 MG TABLET 975 MG PO ×3 (00:04→16:01)
[2023-04-21] MEDS: carvediloL 3.125 MG TABLET PO ×3 (00:04→20:18)
[2023-04-21] MEDS: Docusate Sodium 100 MG CAPSULE PO ×3 (00:06→20:18)
[2023-04-21] MEDS: Sennosides 8.6 MG TABLET 17.2 MG PO ×2 (00:06→20:18)
[2023-04-21] MEDS: Gabapentin 300 MG CAPSULE PO ×4 (00:06→20:18)
[2023-04-21] MEDS: QUEtiapine Fumarate 100 MG TABLET PO ×4 (00:08→20:18)
[2023-04-21] MEDS: traZODone HCL 50 MG TABLET PO ×2 (00:08→20:18)
[2023-04-21 04:00] VITALS: BP 109/53; PULSE 69; RESP 16; TEMP 36.3; O2SAT 2
[2023-04-21 07:14] VITALS: BP 120/55; PULSE 67; RESP 17; TEMP 37; O2SAT 92
[2023-04-21 07:38] LABS: Glucose, Whole Blood 105 mg/dL (60-115)
[2023-04-21] MEDS: Aspirin Enteric Coated 81 MG TABLET.DR PO (07:56)
[2023-04-21] MEDS: Sertraline HCL 100 MG TABLET PO (07:56)
[2023-04-21] MEDS: Folic Acid 1 MG TABLET PO (07:56)
[2023-04-21] MEDS: Clopidogrel Bisulfate 75 MG TABLET PO (07:56)
[2023-04-21] MEDS: Furosemide 40 MG TABLET PO (07:57)
[2023-04-21] MEDS: Fluticasone/Umeclidinium/Vilanterol 200/62.5/25 BLST.W.DEV 1 PUFF INHALE (08:27)
[2023-04-21 08:29] VITALS: PULSE 69; RESP 16; O2SAT 91
[2023-04-21 11:53] LABS: Glucose, Whole Blood 160 mg/dL (60-115)
[2023-04-21] MEDS: Insulin Lispro 100 UNIT/ML 3 ML VIAL SUBCUT (12:19)
--- NOTE | 2023-04-21 14:26 | HO.PM.IMPN ---
Subjective Subjective Date of Service: 04/20/23 Interval History: date of service: 04/20/23 No acute events overnight. Review of Systems no chest pain or sob Physical Exam Vital Signs: Vital Signs: Last Vital Signs Temp 98.6 F 04/21/23 07:14 Pulse 69 04/21/23 08:29 Resp 16 04/21/23 08:29 BP 120/55 L 04/21/23 07:14 Pulse Ox 92 04/21/23 07:14 O2 Del Method Nasal Cannula 04/21/23 07:14 O2 Flow Rate 2 04/20/23 23:46 Oxygen Flow Rate 3 03/15/23 18:32 BMI result Body Mass Index 44.3 Appearance: awake,not in distress.? cvs: [id number], [id number] , no murmur res: clear to auscultation ,no rhonchii or wheezing abd: no rebound or guarding ,nt, bs present. ext pulses present , no cyanosis ,Gait well balanced well coordinated. neuro: axo3 , nonfocal. Objective Data Active Medications Acetaminophen (Acetaminophen 325 Mg Tablet) 975 mg PO TID [facility] Last Admin: 04/21/23 07:56 Dose: 975 mg Documented By: SINA Al Hydroxide/Mg Hydroxide (Magnesium Hydrox/Alum Hydrox 30 Ml Oral.Susp) 30 ml PO Q6H PRN PRN Reason: dyspepsia Albuterol Sulfate (Albuterol Sulfate 90 Mcg 8 Gm Inhaler) 2 puff INHALE Q4H PRN PRN Reason: Wheezing Aspirin (Aspirin Enteric Coated 81 Mg Tablet.) 81 mg PO DAILY [facility] Last Admin: 04/21/23 07:56 Dose: 81 mg Documented By: SINA Atorvastatin Calcium (Atorvastatin Calcium 40 Mg Tablet) 40 mg PO BEDTIME [facility] Last Admin: 04/21/23 00:04 Dose: 40 mg Documented By: KRYSTLE Carvedilol (Carvedilol 3.125 Mg Tablet) 3.125 mg PO BID [facility]; Protocol Last Admin: 04/21/23 07:56 Dose: 3.125 mg Documented By: SINA Clopidogrel Bisulfate (Clopidogrel Bisulfate 75 Mg Tablet) 75 mg PO DAILY [facility] Last Admin: 04/21/23 07:56 Dose: 75 mg Documented By: SINA Cyanocobalamin (Cyanocobalamin (Vitamin B-12) 1,000 Mcg/Ml Vial) 1,000 mcg IM Q30D [facility] Last Admin: 04/08/23 11:46 Dose: 1,000 mcg Documented By: ASHLEE Dextrose (Dextrose 50 % 25 Gm/50 Ml Syringe) 25 gm IVPUSH Q15M PRN; Protocol PRN Reason: per Hypoglycemia Standing Ord. Docusate Sodium (Docusate Sodium 100 Mg Capsule) 100 mg PO BID [facility] Last Admin: 04/21/23 07:57 Dose: 100 mg Documented By: SINA Enoxaparin Sodium (Enoxaparin Sodium 40 Mg/0.4 Ml Syringe) 40 mg SUBCUT Q24H [facility] Last Admin: 04/21/23 00:03 Dose: 40 mg Documented By: KRYSTLE Fluticasone/Umeclidinium/Vilanterol (Fluticasone/Umeclidinium/Vilanterol 200/62.5/25 Blst.W.Dev) 1 puff INHALE RDAILY [facility] Last Admin: 04/21/23 08:27 Dose: 1 puff Documented By: JASON Folic Acid (Folic Acid 1 Mg Tablet) 1 mg PO DAILY [facility] Last Admin: 04/21/23 07:56 Dose: 1 mg Documented By: SINA Furosemide (Furosemide 40 Mg Tablet) 40 mg PO DAILY [facility]; Protocol Last Admin: 04/21/23 07:57 Dose: 40 mg Documented By: SINA Gabapentin (Gabapentin 300 Mg Capsule) 300 mg PO TID [facility] Last Admin: 04/21/23 07:57 Dose: 300 mg Documented By: SINA Glucose (Glucose Gel 15 Gm Gel..Gram.) 15 gm PO Q15M PRN; Protocol PRN Reason: per Hypoglycemia Standing Ord. Insulin Human Lispro (Insulin Lispro 100 Unit/Ml 3 Ml Vial) 0 unit SUBCUT QIDACHS [facility]; Protocol Last Admin: 04/21/23 12:19 Dose: 2 unit Documented By: SINA Lactulose (Lactulose 20 Gm/30 Ml Solution) 10 gm PO DAILY [facility] Last Admin: 04/21/23 07:52 Dose: Not Given Documented By: SINA Non-Admin Reason: PT MOVING BOWELS WITH NO ISSUE Melatonin (Melatonin 3 Mg Tablet) 6 mg PO BEDTIME PRN PRN Reason: Insomnia Metformin HCl (Metformin Hcl Er 500 Mg Tab.Er.24h) 500 mg PO DAILY@1800 [facility] Last Admin: 04/20/23 16:50 Dose: 500 mg Documented By: SINA Omeprazole (Omeprazole 20 Mg Capsule.Dr) 20 mg PO DAILY@0630 [facility] Last Admin: 04/21/23 07:30 Dose: Not Given Documented By: SINA Non-Admin Reason: NOT MY PT AT THIS TIME Ondansetron HCl (Ondansetron Hcl 4 Mg/2 Ml Vial) 4 mg IVPUSH Q8H PRN PRN Reason: Nausea and Vomiting Last Admin: 04/05/23 12:43 Dose: 4 mg Documented By: FERMIN Polyethylene Glycol (Polyethylene Glycol 3350 17 Gm Powd.Pack) 17 gm PO DAILY [facility] Last Admin: 04/21/23 07:52 Dose: Not Given Documented By: SINA Non-Admin Reason: PT MOVING BOWELS WITH NO ISSUE Quetiapine Fumarate (Quetiapine Fumarate 100 Mg Tablet) 100 mg PO TID [facility] Last Admin: 04/21/23 07:57 Dose: 100 mg Documented By: SINA Senna (Sennosides 8.6 Mg Tablet) 17.2 mg PO BEDTIME [facility] Last Admin: 04/21/23 00:06 Dose: 17.2 mg Documented By: KRYSTLE Sertraline HCl (Sertraline Hcl 100 Mg Tablet) 100 mg PO DAILY [facility] Last Admin: 04/21/23 07:56 Dose: 100 mg Documented By: SIAN Sodium Chloride (0.9 % Sodium Chloride Flush 3 Ml Syringe) 3 ml IVFLUSH QSHIFT [facility] Last Admin: 04/21/23 06:56 Dose: Not Given Documented By: SINA Non-Admin Reason: No Access Trazodone HCl (Trazodone Hcl 50 Mg Tablet) 50 mg PO BEDTIME [facility] Last Admin: 04/21/23 00:08 Dose: 50 mg Documented By: KRYSTLE Labs 04/09/23 08:41 04/16/23 20:10 Labs: Laboratory Results - last 24 hr 04/20/23 04/20/23 04/20/23 16:28 16:46 20:12 POC Glucose 162 H 157 H 141 H 04/21/23 04/21/23 07:33 11:44 POC Glucose 105 160 H Assessment and Plan (1) COVID-19: Status: Acute Plan 72-year-old male with a PMH significant for?CAD, [id number] diabetes type 2, who initially presented presents to the ED on 03/15/2023 from SNF after reportedly having hallucinations and being combative with staff. Pt was placed in physician observation in the ED until he became hypoxic and tested positive for COVID admitted to the medical floor for treatment and further evaluation of acute hypoxic respiratory failure in the setting of COVID infection. 1.Acute hypoxic respiratory failure in the setting COVID 19 infection -Finished course of dexamethasone and remdesivir -baseline home oxygen 2 L 2.Left mid back discomfort -lipoma -no acute intervention. 3.HTN -acceptable control on current therapies -adjust as indicated 4.Ros-altxpek-znfrsvyzv type 2 diabetes -acceptable control on current therapies -lispro correctional scale -adjust as indicated Full Code Lovenox requires continued hospital stay for safe disposition . Quality Stroke Does the patient have a stroke diagnosis?: No VTE Prior VTE?: No VTE Risk Level:: Medical - moderate - high VTE Device Contraindication: Treatment Not Indicated VTE Drug Contraindication: N/A - Med Ordered
--- NOTE | 2023-04-21 14:29 | P.PNIM_ITS ---
Subjective Subjective Date of Service: 04/21/23 Interval History: No acute events overnight. Seen by speech who felt he is not ready for upgrade of diet Review of Systems denies any chest pain or no new acute events overnight. Physical Exam 2 Vital Signs: Vital Signs: Last Vital Signs Temp 98.6 F 04/21/23 07:14 Pulse 69 04/21/23 08:29 Resp 16 04/21/23 08:29 BP 120/55 L 04/21/23 07:14 Pulse Ox 92 04/21/23 07:14 O2 Del Method Nasal Cannula 04/21/23 07:14 O2 Flow Rate 2 04/20/23 23:46 Oxygen Flow Rate 3 03/15/23 18:32 BMI result Body Mass Index 44.3 Appearance: awake,not in distress.? cvs: rrr, [id number] . res: clear to auscultation ,no rhonchii or wheezing abd: no rebound or guarding ,nt, bs present. ext pulses present , no cyanosis . neuro: axo3 , nonfocal. Objective Data Active Medications Acetaminophen (Acetaminophen 325 Mg Tablet) 975 mg PO TID [facility] Last Admin: 04/21/23 07:56 Dose: 975 mg Documented By: SINA Al Hydroxide/Mg Hydroxide (Magnesium Hydrox/Alum Hydrox 30 Ml Oral.Susp) 30 ml PO Q6H PRN PRN Reason: dyspepsia Albuterol Sulfate (Albuterol Sulfate 90 Mcg 8 Gm Inhaler) 2 puff INHALE Q4H PRN PRN Reason: Wheezing Aspirin (Aspirin Enteric Coated 81 Mg Tablet.) 81 mg PO DAILY [facility] Last Admin: 04/21/23 07:56 Dose: 81 mg Documented By: SINA Atorvastatin Calcium (Atorvastatin Calcium 40 Mg Tablet) 40 mg PO BEDTIME [facility] Last Admin: 04/21/23 00:04 Dose: 40 mg Documented By: KRYSTLE Carvedilol (Carvedilol 3.125 Mg Tablet) 3.125 mg PO BID [facility]; Protocol Last Admin: 04/21/23 07:56 Dose: 3.125 mg Documented By: SINA Clopidogrel Bisulfate (Clopidogrel Bisulfate 75 Mg Tablet) 75 mg PO DAILY [facility] Last Admin: 04/21/23 07:56 Dose: 75 mg Documented By: SINA Cyanocobalamin (Cyanocobalamin (Vitamin B-12) 1,000 Mcg/Ml Vial) 1,000 mcg IM Q30D [facility] Last Admin: 04/08/23 11:46 Dose: 1,000 mcg Documented By: ASHLEE Dextrose (Dextrose 50 % 25 Gm/50 Ml Syringe) 25 gm IVPUSH Q15M PRN; Protocol PRN Reason: per Hypoglycemia Standing Ord. Docusate Sodium (Docusate Sodium 100 Mg Capsule) 100 mg PO BID [facility] Last Admin: 04/21/23 07:57 Dose: 100 mg Documented By: SINA Enoxaparin Sodium (Enoxaparin Sodium 40 Mg/0.4 Ml Syringe) 40 mg SUBCUT Q24H [facility] Last Admin: 04/21/23 00:03 Dose: 40 mg Documented By: KRYSTLE Fluticasone/Umeclidinium/Vilanterol (Fluticasone/Umeclidinium/Vilanterol 200/62.5/25 Blst.W.Dev) 1 puff INHALE RDAILY [facility] Last Admin: 04/21/23 08:27 Dose: 1 puff Documented By: JASON Folic Acid (Folic Acid 1 Mg Tablet) 1 mg PO DAILY [facility] Last Admin: 04/21/23 07:56 Dose: 1 mg Documented By: SINA Furosemide (Furosemide 40 Mg Tablet) 40 mg PO DAILY [facility]; Protocol Last Admin: 04/21/23 07:57 Dose: 40 mg Documented By: SINA Gabapentin (Gabapentin 300 Mg Capsule) 300 mg PO TID [facility] Last Admin: 04/21/23 07:57 Dose: 300 mg Documented By: SINA Glucose (Glucose Gel 15 Gm Gel..Gram.) 15 gm PO Q15M PRN; Protocol PRN Reason: per Hypoglycemia Standing Ord. Insulin Human Lispro (Insulin Lispro 100 Unit/Ml 3 Ml Vial) 0 unit SUBCUT QIDACHS [facility]; Protocol Last Admin: 04/21/23 12:19 Dose: 2 unit Documented By: SINA Lactulose (Lactulose 20 Gm/30 Ml Solution) 10 gm PO DAILY [facility] Last Admin: 04/21/23 07:52 Dose: Not Given Documented By: SINA Non-Admin Reason: PT MOVING BOWELS WITH NO ISSUE Melatonin (Melatonin 3 Mg Tablet) 6 mg PO BEDTIME PRN PRN Reason: Insomnia Metformin HCl (Metformin Hcl Er 500 Mg Tab.Er.24h) 500 mg PO DAILY@1800 [facility] Last Admin: 04/20/23 16:50 Dose: 500 mg Documented By: SINA Omeprazole (Omeprazole 20 Mg Capsule.Dr) 20 mg PO DAILY@0630 [facility] Last Admin: 04/21/23 07:30 Dose: Not Given Documented By: SINA Non-Admin Reason: NOT MY PT AT THIS TIME Ondansetron HCl (Ondansetron Hcl 4 Mg/2 Ml Vial) 4 mg IVPUSH Q8H PRN PRN Reason: Nausea and Vomiting Last Admin: 04/05/23 12:43 Dose: 4 mg Documented By: FERMIN Polyethylene Glycol (Polyethylene Glycol 3350 17 Gm Powd.Pack) 17 gm PO DAILY [facility] Last Admin: 04/21/23 07:52 Dose: Not Given Documented By: SINA Non-Admin Reason: PT MOVING BOWELS WITH NO ISSUE Quetiapine Fumarate (Quetiapine Fumarate 100 Mg Tablet) 100 mg PO TID [facility] Last Admin: 04/21/23 07:57 Dose: 100 mg Documented By: SINA Senna (Sennosides 8.6 Mg Tablet) 17.2 mg PO BEDTIME [facility] Last Admin: 04/21/23 00:06 Dose: 17.2 mg Documented By: KRYSTLE Sertraline HCl (Sertraline Hcl 100 Mg Tablet) 100 mg PO DAILY [facility] Last Admin: 04/21/23 07:56 Dose: 100 mg Documented By: SINA Sodium Chloride (0.9 % Sodium Chloride Flush 3 Ml Syringe) 3 ml IVFLUSH QSHIFT [facility] Last Admin: 04/21/23 06:56 Dose: Not Given Documented By: SINA Non-Admin Reason: No Access Trazodone HCl (Trazodone Hcl 50 Mg Tablet) 50 mg PO BEDTIME [facility] Last Admin: 04/21/23 00:08 Dose: 50 mg Documented By: KRYSTLE Labs 04/09/23 08:41 04/16/23 20:10 Labs: Laboratory Results - last 24 hr 04/20/23 04/20/23 04/20/23 16:28 16:46 20:12 POC Glucose 162 H 157 H 141 H 03/06/24 03/06/24 07:33 11:44 POC Glucose 105 160 H Assessment and Plan (1) Hypoxia: Status: Acute Plan 72-year-old male with a PMH significant for?CAD, [id number] diabetes type 2, who initially presented presents to the ED on 03/15/2023 from SNF after reportedly having hallucinations and being combative with staff. Pt was placed in physician observation in the ED until he became hypoxic and tested positive for COVID admitted to the medical floor for treatment and further evaluation of acute hypoxic respiratory failure in the setting of COVID infection. 1.Acute hypoxic respiratory failure in the setting COVID 19 infection -Finished course of dexamethasone and remdesivir -baseline home oxygen 2 L 2.Left mid back discomfort -lipoma -no acute intervention. 3.HTN -acceptable control on current therapies -adjust as indicated 4.Oit-ctmvfev-xijdfxfqp type 2 diabetes -acceptable control on current therapies -lispro correctional scale -adjust as indicated Full Code Lovenox requires continued hospital stay for safe disposition . Quality Stroke Does the patient have a stroke diagnosis?: No VTE Prior VTE?: No VTE Risk Level:: Medical - moderate - high VTE Device Contraindication: Treatment Not Indicated VTE Drug Contraindication: N/A - Med Ordered
--- NOTE | 2023-04-21 15:02 | MHC.CM.PN ---
EMR reviewed and per MD rounds, pt remains medically cleared for D/C, but unable to due to inability to find placement for pt. Referrals in [facility] updated today, no bed offers received.
[2023-04-21 15:17] VITALS: BP 132/60; PULSE 73; RESP 17; TEMP 37.1; O2SAT 94
[2023-04-21 15:49] LABS: Glucose, Whole Blood 108 mg/dL (60-115)
[2023-04-21] MEDS: metFORMIN HCl ER 500 MG TAB.ER.24H PO (16:38)
[2023-04-21 19:19] VITALS: BP 120/58; PULSE 75; RESP 18; TEMP 36.6; O2SAT 93
[2023-04-21 20:02] LABS: Glucose, Whole Blood 127 mg/dL (60-115)
[2023-04-22 03:19] VITALS: BP 106/58; PULSE 78; RESP 18; TEMP 36.1; O2SAT 93
[2023-04-22] MEDS: Omeprazole 20 MG CAPSULE.DR PO (05:09)
[2023-04-22 07:15] LABS: Glucose, Whole Blood 124 mg/dL (60-115)
[2023-04-22 07:20] VITALS: BP 103/52; PULSE 76; RESP 20; TEMP 36.3; O2SAT 94
[2023-04-22] MEDS: Lactulose 20 GM/30 ML SOLUTION 10 GM PO (08:37)
[2023-04-22] MEDS: polyethylene glycoL 3350 17 GM POWD.PACK PO (08:37)
[2023-04-22] MEDS: Furosemide 40 MG TABLET PO (08:39)
[2023-04-22] MEDS: Sertraline HCL 100 MG TABLET PO (08:39)
[2023-04-22] MEDS: Clopidogrel Bisulfate 75 MG TABLET PO (08:39)
[2023-04-22] MEDS: carvediloL 3.125 MG TABLET PO (08:39)
[2023-04-22] MEDS: Docusate Sodium 100 MG CAPSULE PO (08:39)
[2023-04-22] MEDS: Acetaminophen 325 MG TABLET 975 MG PO ×3 (08:39→20:50)
[2023-04-22] MEDS: Folic Acid 1 MG TABLET PO (08:39)
[2023-04-22] MEDS: Aspirin Enteric Coated 81 MG TABLET.DR PO (08:39)
[2023-04-22] MEDS: Gabapentin 300 MG CAPSULE PO ×3 (08:39→20:50)
[2023-04-22] MEDS: QUEtiapine Fumarate 100 MG TABLET PO ×3 (08:39→20:50)
[2023-04-22 11:02] LABS: Glucose, Whole Blood 197 mg/dL (60-115)
[2023-04-22 11:13] VITALS: PULSE 79; RESP 19; O2SAT 90
[2023-04-22] MEDS: Fluticasone/Umeclidinium/Vilanterol 200/62.5/25 BLST.W.DEV 1 PUFF INHALE (11:13)
[2023-04-22] MEDS: Insulin Lispro 100 UNIT/ML 3 ML VIAL SUBCUT ×2 (12:15→20:57)
--- NOTE | 2023-04-22 14:24 | MHC.CM.PN ---
This CM called [facility] to check on status of pts file, Chyna at [facility] stated they never received the information we faxed. Fax number verified with Chyna and paperwork faxed for the third time to [facility] in an effort to have him added to their wait list. Referrals in careport updated and expanded, of 220 referrals, no bed offers received.
--- NOTE | 2023-04-22 14:49 | HO.PM.IMPN ---
Subjective Subjective Date of Service: 04/22/23 Interval History: No acute events overnight. Seen by speech who felt he is not ready for upgrade of diet Review of Systems denies any chest pain or no new acute events overnight. Physical Exam Vital Signs: Vital Signs: Last Vital Signs Temp 97.4 F 04/22/23 07:20 Pulse 79 04/22/23 11:13 Resp 19 04/22/23 11:13 BP 103/52 L 04/22/23 07:20 Pulse Ox 94 04/22/23 07:20 O2 Del Method Nasal Cannula 04/22/23 07:20 O2 Flow Rate 2 04/22/23 07:20 Oxygen Flow Rate 3 03/15/23 18:32 BMI result Body Mass Index 44.3 Appearance: awake,not in distress.? cvs: rrr, [id number] . res: clear to auscultation ,no rhonchii or wheezing abd: no rebound or guarding ,nt, bs present. ext pulses present , no cyanosis . neuro: axo3 , nonfocal. Objective Data Active Medications Acetaminophen (Acetaminophen 325 Mg Tablet) 975 mg PO TID [facility] Last Admin: 04/22/23 08:39 Dose: 975 mg Documented By: ASHLEE Al Hydroxide/Mg Hydroxide (Magnesium Hydrox/Alum Hydrox 30 Ml Oral.Susp) 30 ml PO Q6H PRN PRN Reason: dyspepsia Albuterol Sulfate (Albuterol Sulfate 90 Mcg 8 Gm Inhaler) 2 puff INHALE Q4H PRN PRN Reason: Wheezing Aspirin (Aspirin Enteric Coated 81 Mg Tablet.) 81 mg PO DAILY [facility] Last Admin: 04/22/23 08:39 Dose: 81 mg Documented By: ASHLEE Atorvastatin Calcium (Atorvastatin Calcium 40 Mg Tablet) 40 mg PO BEDTIME [facility] Last Admin: 04/21/23 20:18 Dose: 40 mg Documented By: IBETH Carvedilol (Carvedilol 3.125 Mg Tablet) 3.125 mg PO BID [facility]; Protocol Last Admin: 04/22/23 08:39 Dose: 3.125 mg Documented By: ASHLEE Clopidogrel Bisulfate (Clopidogrel Bisulfate 75 Mg Tablet) 75 mg PO DAILY [facility] Last Admin: 04/22/23 08:39 Dose: 75 mg Documented By: ASHLEE Cyanocobalamin (Cyanocobalamin (Vitamin B-12) 1,000 Mcg/Ml Vial) 1,000 mcg IM Q30D [facility] Last Admin: 04/08/23 11:46 Dose: 1,000 mcg Documented By: ASHLEE Dextrose (Dextrose 50 % 25 Gm/50 Ml Syringe) 25 gm IVPUSH Q15M PRN; Protocol PRN Reason: per Hypoglycemia Standing Ord. Docusate Sodium (Docusate Sodium 100 Mg Capsule) 100 mg PO BID PRN PRN Reason: Constipation Enoxaparin Sodium (Enoxaparin Sodium 40 Mg/0.4 Ml Syringe) 40 mg SUBCUT Q24H [facility] Last Admin: 04/21/23 20:18 Dose: 40 mg Documented By: IBETH Fluticasone/Umeclidinium/Vilanterol (Fluticasone/Umeclidinium/Vilanterol 200/62.5/25 Blst.W.Dev) 1 puff INHALE RDAILY [facility] Last Admin: 04/22/23 11:13 Dose: 1 puff Documented By: PERLA Folic Acid (Folic Acid 1 Mg Tablet) 1 mg PO DAILY [facility] Last Admin: 04/22/23 08:39 Dose: 1 mg Documented By: ASHLEE Furosemide (Furosemide 40 Mg Tablet) 40 mg PO DAILY [facility]; Protocol Last Admin: 04/22/23 08:39 Dose: 40 mg Documented By: ASHLEE Gabapentin (Gabapentin 300 Mg Capsule) 300 mg PO TID [facility] Last Admin: 04/22/23 08:39 Dose: 300 mg Documented By: ASHLEE Glucose (Glucose Gel 15 Gm Gel..Gram.) 15 gm PO Q15M PRN; Protocol PRN Reason: per Hypoglycemia Standing Ord. Insulin Human Lispro (Insulin Lispro 100 Unit/Ml 3 Ml Vial) 0 unit SUBCUT QIDACHS [facility]; Protocol Last Admin: 04/22/23 12:15 Dose: 2 unit Documented By: ASHLEE Lactulose (Lactulose 20 Gm/30 Ml Solution) 10 gm PO DAILY PRN PRN Reason: Constipation Melatonin (Melatonin 3 Mg Tablet) 6 mg PO BEDTIME PRN PRN Reason: Insomnia Metformin HCl (Metformin Hcl Er 500 Mg Tab.Er.24h) 500 mg PO DAILY@1800 [facility] Last Admin: 04/21/23 16:38 Dose: 500 mg Documented By: SINA Omeprazole (Omeprazole 20 Mg Capsule.Dr) 20 mg PO DAILY@0630 [facility] Last Admin: 04/22/23 05:09 Dose: 20 mg Documented By: JONI Ondansetron HCl (Ondansetron Hcl 4 Mg/2 Ml Vial) 4 mg IVPUSH Q8H PRN PRN Reason: Nausea and Vomiting Last Admin: 04/05/23 12:43 Dose: 4 mg Documented By: FERMIN Polyethylene Glycol (Polyethylene Glycol 3350 17 Gm Powd.Pack) 17 gm PO DAILY PRN PRN Reason: Constipation Quetiapine Fumarate (Quetiapine Fumarate 100 Mg Tablet) 100 mg PO TID [facility] Last Admin: 04/22/23 08:39 Dose: 100 mg Documented By: ASHLEE Senna (Sennosides 8.6 Mg Tablet) 17.2 mg PO BEDTIME [facility] Last Admin: 04/21/23 20:18 Dose: 17.2 mg Documented By: IBETH Sertraline HCl (Sertraline Hcl 100 Mg Tablet) 100 mg PO DAILY [facility] Last Admin: 04/22/23 08:39 Dose: 100 mg Documented By: ASHLEE Sodium Chloride (0.9 % Sodium Chloride Flush 3 Ml Syringe) 3 ml IVFLUSH QSHIFT [facility] Last Admin: 04/22/23 08:45 Dose: Not Given Documented By: ASHLEE Non-Admin Reason: No IV access Trazodone HCl (Trazodone Hcl 50 Mg Tablet) 50 mg PO BEDTIME [facility] Last Admin: 04/21/23 20:18 Dose: 50 mg Documented By: IBETH Labs 04/09/23 08:41 04/16/23 20:10 Labs: Laboratory Results - last 24 hr 04/21/23 04/21/23 04/22/23 15:27 19:57 07:12 POC Glucose 108 127 H 124 H 04/22/23 10:58 POC Glucose 197 H Assessment and Plan (1) Hypoxia: Status: Acute Plan 72-year-old male with a PMH significant for?CAD, [id number] diabetes type 2, who initially presented presents to the ED on 03/15/2023 from [facility] after reportedly having hallucinations and being combative with staff. Pt was placed in physician observation in the ED until he became hypoxic and tested positive for COVID admitted to the medical floor for treatment and further evaluation of acute hypoxic respiratory failure in the setting of COVID infection. 1.Acute hypoxic respiratory failure in the setting COVID 19 infection -Finished course of dexamethasone and remdesivir -baseline home oxygen 2 L 2.Left mid back discomfort -lipoma -no acute intervention. 3.HTN -acceptable control on current therapies -adjust as indicated 4.Ecy-vbkjwsw-pkwjltiss type 2 diabetes -acceptable control on current therapies -lispro correctional scale -adjust as indicated Full Code Lovenox requires continued hospital stay for safe disposition . Quality Stroke Does the patient have a stroke diagnosis?: No VTE Prior VTE?: No VTE Risk Level:: Medical - moderate - high VTE Device Contraindication: Treatment Not Indicated VTE Drug Contraindication: N/A - Med Ordered
--- NOTE | 2023-04-22 14:52 | HO.PM.IMPN ---
Subjective Subjective Date of Service: 04/22/23 Interval History: No acute events overnight. Seen by speech who felt he is not ready for upgrade of diet Review of Systems denies any chest pain or no new acute events overnight. Physical Exam Vital Signs: Vital Signs: Last Vital Signs Temp 97.4 F 04/22/23 07:20 Pulse 79 04/22/23 11:13 Resp 19 04/22/23 11:13 BP 103/52 L 04/22/23 07:20 Pulse Ox 94 04/22/23 07:20 O2 Del Method Nasal Cannula 04/22/23 07:20 O2 Flow Rate 2 04/22/23 07:20 Oxygen Flow Rate 3 03/15/23 18:32 BMI result Body Mass Index 44.3 Appearance: awake,not in distress.? cvs: rrr, [id number] . res: clear to auscultation ,no rhonchii or wheezing abd: no rebound or guarding ,nt, bs present. ext pulses present , no cyanosis . neuro: axo3 , nonfocal. Objective Data Active Medications Acetaminophen (Acetaminophen 325 Mg Tablet) 975 mg PO TID [facility] Last Admin: 04/22/23 08:39 Dose: 975 mg Documented By: ASHLEE Al Hydroxide/Mg Hydroxide (Magnesium Hydrox/Alum Hydrox 30 Ml Oral.Susp) 30 ml PO Q6H PRN PRN Reason: dyspepsia Albuterol Sulfate (Albuterol Sulfate 90 Mcg 8 Gm Inhaler) 2 puff INHALE Q4H PRN PRN Reason: Wheezing Aspirin (Aspirin Enteric Coated 81 Mg Tablet.) 81 mg PO DAILY [facility] Last Admin: 04/22/23 08:39 Dose: 81 mg Documented By: ASHLEE Atorvastatin Calcium (Atorvastatin Calcium 40 Mg Tablet) 40 mg PO BEDTIME [facility] Last Admin: 04/21/23 20:18 Dose: 40 mg Documented By: IBETH Carvedilol (Carvedilol 3.125 Mg Tablet) 3.125 mg PO BID [facility]; Protocol Last Admin: 04/22/23 08:39 Dose: 3.125 mg Documented By: ASHLEE Clopidogrel Bisulfate (Clopidogrel Bisulfate 75 Mg Tablet) 75 mg PO DAILY [facility] Last Admin: 04/22/23 08:39 Dose: 75 mg Documented By: ASHLEE Cyanocobalamin (Cyanocobalamin (Vitamin B-12) 1,000 Mcg/Ml Vial) 1,000 mcg IM Q30D [facility] Last Admin: 04/08/23 11:46 Dose: 1,000 mcg Documented By: ASHLEE Dextrose (Dextrose 50 % 25 Gm/50 Ml Syringe) 25 gm IVPUSH Q15M PRN; Protocol PRN Reason: per Hypoglycemia Standing Ord. Docusate Sodium (Docusate Sodium 100 Mg Capsule) 100 mg PO BID PRN PRN Reason: Constipation Enoxaparin Sodium (Enoxaparin Sodium 40 Mg/0.4 Ml Syringe) 40 mg SUBCUT Q24H [facility] Last Admin: 04/21/23 20:18 Dose: 40 mg Documented By: IBETH Fluticasone/Umeclidinium/Vilanterol (Fluticasone/Umeclidinium/Vilanterol 200/62.5/25 Blst.W.Dev) 1 puff INHALE RDAILY [facility] Last Admin: 04/22/23 11:13 Dose: 1 puff Documented By: PERLA Folic Acid (Folic Acid 1 Mg Tablet) 1 mg PO DAILY [facility] Last Admin: 04/22/23 08:39 Dose: 1 mg Documented By: ASHLEE Furosemide (Furosemide 40 Mg Tablet) 40 mg PO DAILY [facility]; Protocol Last Admin: 04/22/23 08:39 Dose: 40 mg Documented By: ASHLEE Gabapentin (Gabapentin 300 Mg Capsule) 300 mg PO TID [facility] Last Admin: 04/22/23 08:39 Dose: 300 mg Documented By: ASHLEE Glucose (Glucose Gel 15 Gm Gel..Gram.) 15 gm PO Q15M PRN; Protocol PRN Reason: per Hypoglycemia Standing Ord. Insulin Human Lispro (Insulin Lispro 100 Unit/Ml 3 Ml Vial) 0 unit SUBCUT QIDACHS [facility]; Protocol Last Admin: 04/22/23 12:15 Dose: 2 unit Documented By: ASHLEE Lactulose (Lactulose 20 Gm/30 Ml Solution) 10 gm PO DAILY PRN PRN Reason: Constipation Melatonin (Melatonin 3 Mg Tablet) 6 mg PO BEDTIME PRN PRN Reason: Insomnia Metformin HCl (Metformin Hcl Er 500 Mg Tab.Er.24h) 500 mg PO DAILY@1800 [facility] Last Admin: 04/21/23 16:38 Dose: 500 mg Documented By: SINA Omeprazole (Omeprazole 20 Mg Capsule.Dr) 20 mg PO DAILY@0630 [facility] Last Admin: 04/22/23 05:09 Dose: 20 mg Documented By: JONI Ondansetron HCl (Ondansetron Hcl 4 Mg/2 Ml Vial) 4 mg IVPUSH Q8H PRN PRN Reason: Nausea and Vomiting Last Admin: 04/05/23 12:43 Dose: 4 mg Documented By: FERMIN Polyethylene Glycol (Polyethylene Glycol 3350 17 Gm Powd.Pack) 17 gm PO DAILY PRN PRN Reason: Constipation Quetiapine Fumarate (Quetiapine Fumarate 100 Mg Tablet) 100 mg PO TID [facility] Last Admin: 04/22/23 08:39 Dose: 100 mg Documented By: ASHLEE Senna (Sennosides 8.6 Mg Tablet) 17.2 mg PO BEDTIME [facility] Last Admin: 04/21/23 20:18 Dose: 17.2 mg Documented By: IBETH Sertraline HCl (Sertraline Hcl 100 Mg Tablet) 100 mg PO DAILY [facility] Last Admin: 04/22/23 08:39 Dose: 100 mg Documented By: ASHLEE Sodium Chloride (0.9 % Sodium Chloride Flush 3 Ml Syringe) 3 ml IVFLUSH QSHIFT [facility] Last Admin: 04/22/23 08:45 Dose: Not Given Documented By: ASHLEE Non-Admin Reason: No IV access Trazodone HCl (Trazodone Hcl 50 Mg Tablet) 50 mg PO BEDTIME [facility] Last Admin: 04/21/23 20:18 Dose: 50 mg Documented By: IBETH Labs 04/09/23 08:41 04/16/23 20:10 Labs: Laboratory Results - last 24 hr 04/21/23 04/21/23 04/22/23 15:27 19:57 07:12 POC Glucose 108 127 H 124 H 04/22/23 10:58 POC Glucose 197 H Assessment and Plan (1) Hypoxia: Status: Acute Plan 72-year-old male with a PMH significant for?CAD, [id number] diabetes type 2, who initially presented presents to the ED on 03/15/2023 from [facility] after reportedly having hallucinations and being combative with staff. Pt was placed in physician observation in the ED until he became hypoxic and tested positive for COVID admitted to the medical floor for treatment and further evaluation of acute hypoxic respiratory failure in the setting of COVID infection. 1.Acute hypoxic respiratory failure in the setting COVID 19 infection -Finished course of dexamethasone and remdesivir -baseline home oxygen 2 L 2.Left mid back discomfort -lipoma -no acute intervention. 3.HTN -acceptable control on current therapies -adjust as indicated 4.Ari-mvsumyf-ligqmvoob type 2 diabetes -acceptable control on current therapies -lispro correctional scale -adjust as indicated Full Code Lovenox requires continued hospital stay for safe disposition . Quality Stroke Does the patient have a stroke diagnosis?: No VTE Prior VTE?: No VTE Risk Level:: Medical - moderate - high VTE Device Contraindication: Treatment Not Indicated VTE Drug Contraindication: N/A - Med Ordered
--- NOTE | 2023-04-22 15:00 | HO.WOUND ---
Wound Consult: Follow up 72yr old?M admitted to [facility] [place] on 04/02 - See progress notes and H&P for detailed history.? Wound consult placed for Back reassessment and penis wound.? Arrival to bedside pt was in bed and able to reposition with assist to have me assess his back and buttock. Etiology remains unknown there is a pinpoint opening oozing serosang fluid - there is significant pain the the area and a large irregular softly indurated area associated with significant pain when palpated. There is a corresponding red pink erythema noted to his skin that remains blanchable. I suggest imaging or re consult surgical. Per my discussion with Dr. Osorio surgery was re-consulted today. 04/15/23 04/22/23 Back assessment increased erythema Back Etiology: ??Unknown Etiology Measurements: pin point opening Drainage / Odor: serosang drainage soft induration noted - no fluctuance noted Pain: patient reports significant pain when assessed Goals of Treatment: ?foam or dry gauze dressing for exudate absorption until further assessment from surgery and imaging 3 Buttocks Site - appears improving Bilateral buttock Etiology: Thrombocytopenia vs Covid 19 related microthrombi - not consistent with Pressure Presentation Wound Bed: resolving scattered areas of dark purple pigmentation nonblanchable intact tissue the right buttock is not over a bony prominence the left buttock are red maroon and are blanchable throughout - etiology is not consistent with typical pressure. Pressure typically does not scattered and present in nonpressure points and have patterns of intact non-injured tissue. The patients lab values were reviewed and he is noted to have Platelet count of 144 as of 04/09/23 the patient continues with significant bruising throughout his extremities platelet labs have not been drawn since 04/09/23 Drainage / Odor: None per direct care team Edges: ? irregular [place] wound: MASD - Patient with frequent loose stools - blanchable pink erythema to buttocks perianal and scrotum and No induration no fluctuance and no warmth noted Goals of Treatment: ? barrier cream to protect from friction and moisture - off load pressure Penis Etiology: Device related mucosal pressure injury Wound Bed: Intact maroon purple nonblanchable pigmentation -coincides with condom cath application Drainage / Odor: None Edges: ? irregular [place] wound: MASD to scrotum and perineal area- Patient with frequent loose stools - blanchable pink erythema to buttocks perianal and scrotum and No induration no fluctuance and no warmth noted Goals of Treatment: ? barrier cream to protect from friction and moisture - off load pressure Recommendations: 1. Turn and Reposition every 2 hours and as needed for patient comfort.? Use pillows or wedges to support off loading positions. Currently in Bariatric Bed. 2. Off Load all bony prominences with use of pillows and heel boots if needed.? Apply Preventative foams where needed. ? 3. Monitor for incontinence and moisture control, use barrier creams when needed for prevention and treatment. Do not use brief for incontinence control. 4. Provide adequate and supplemental nutrition.? 5. When applicable maintain blood glucose levels per Providers order. 6. Sacrum, scrotum and buttocks - Off Load Pressure - Cleanse with PH balance spray or wipes, pat dry. ?Apply thin layer of barrier cream to wound bed - only pat and dab no scrub and rub when soiling occurs. Reapply thin layer PRN after each episode of incontinence. 7. Back - Cleanse with NS pat dry. Cover with foam dressing or dry gauze dressing for drainage absorption. Defer to Dr. Osorio and Surgery Consult. 8. Penis - Protect from trauma - apply skin prep allow to dry. Discontinue use of Condom Cath. Re-consult wound care Nurse for wound deterioration or wound changes.
--- NOTE | 2023-04-22 15:27 | MHC.SL.SWA ---
Speech Pathologist Impression: Risk of Aspiration Due to: Reduced Cognition None Dysphasia Diet Status: Recommend continue on Chopped/Advanced diet (NDD3) to assure softer foods that a pre-cut, thin liquids, and pills whole with liquid. Patient requires 1-1 assistance at all meals. Liquid Consistency and Strategies for Safe Swallow: Liquid Intake Recommendation: Thin Liquid Intake Strategies: Small Sips Solid Food Consistency: Dietary Recommendations: Chopped/Advanced (NDD3) Additional Modifications to Solid Foods: Patient requires full assistance at all meals, including preparing tray by adding sauces and gravies, opening all items, orienting patient verbally to what is on his tray, then directly feeding patient. Oral Medication Intake: Whole with Liquid Please contact the pharmacy regarding appropriate crushable or liquid drug formulations that are available whenever modified delivery is recommended. Compensatory Strategies and Precautions to be Taken for Safe Swallow: Sitting Upright (90 deg) Small Bites and Sips Alternate Liquids/Solids Rate of Ingestion Change Avoid Specific Foods Supervision While Eating and Drinking for Safe Swallow: Total Assistance (1:1) Foods to Avoid: Dry, tough to chew, sticky foods, large pieces of uncut meat. Swallowing Recommended Treatments: Compens. Strategy Educat. Recommendation for Speech: Inpatient Speech Therapy Comment: Pt seen at lunch with tray of chopped turkey, mashed potatoes and gravy. Patient was seated in cardiac chair, having just been moved there by RN and PT. RN reports that staff has been regularly providing 1-1 feeding. VIDEOTAPE OPERATOR fed patient bites of turkey and mashed potatoes and gravy, cuing patient each time the fork was presented, with patient producing a timely, oral and pharyngeal phase of swallow. Patient noted to still be coughing periodically. Patient additionally took several straw sips of soda with meal, which was alternated with bites of food. Patient tolerated these consistencies well when given 1-1 support and cuing. Discussed patient with MD in phone call, as per MD, family member continues to request patient be advanced to regular diet. Safety issues due to patient's blindness and level of confusion, the need for one to one feeding with cuing and the history of patient choking on regular diet was discussed. Patient is currently on safest and least restrictive diet for this setting, can resume regular diet at next level of care as long as caregiver is present at all meals and has adequately prepared food cut into small, manageable pieces. Frequency/Duration: M-F during hospitalization Date Range for Service Req: Timeline to reassess: Senior Mobile Web Developer Clinican/Clinical Fellow: No Supervisory Statement: I have reviewed and agree with the student/clinical fellow's documentation: N/A Speech Language Pathologist: Cyndi Patricia M.A., CCC-VIDEOTAPE OPERATOR
[2023-04-22 15:58] VITALS: BP 133/75; PULSE 79; RESP 18; TEMP 36.4; O2SAT 94
[2023-04-22 16:21] LABS: Glucose, Whole Blood 129 mg/dL (60-115)
--- NOTE | 2023-04-22 16:33 | P.PNGS_ITS ---
Subjective Subjective Date of Service: 04/22/23 Interval history: Patient is back lesion re-evaluated today. Patient reports some discomfort from the lesion. Physical Exam 2 Vital Signs: Vital Signs: Last Vital Signs Temp 97.5 F 04/22/23 15:58 Pulse 79 04/22/23 15:58 Resp 18 04/22/23 15:58 BP 133/75 04/22/23 15:58 Pulse Ox 94 04/22/23 15:58 O2 Del Method Nasal Cannula 04/22/23 15:58 O2 Flow Rate 2 04/22/23 15:58 Oxygen Flow Rate 3 03/15/23 18:32 BMI result Body Mass Index 44.3 Const: General: no acute distress Nutritional Appearance: overweight O rientation/consciousness: patient oriented x3 Resp: Effort & Inspection: normal respiratory effort Back/Spine/Pelvis: Other: Area of inflammation noted in the mid back, covered with a pink foam dressing. Central punctum noted in the central portion of the lesion. Lesion appears consistent with an epidermal inclusion cyst with surrounding inflammation. No definite abscess appreciated. Neuro: General: patient oriented x3 Objective Data Active Medications Acetaminophen (Acetaminophen 325 Mg Tablet) 975 mg PO TID [facility] Last Admin: 04/22/23 15:41 Dose: 975 mg Documented By: ASHLEE Al Hydroxide/Mg Hydroxide (Magnesium Hydrox/Alum Hydrox 30 Ml Oral.Susp) 30 ml PO Q6H PRN PRN Reason: dyspepsia Albuterol Sulfate (Albuterol Sulfate 90 Mcg 8 Gm Inhaler) 2 puff INHALE Q4H PRN PRN Reason: Wheezing Aspirin (Aspirin Enteric Coated 81 Mg Tablet.) 81 mg PO DAILY [facility] Last Admin: 04/22/23 08:39 Dose: 81 mg Documented By: ASHLEE Atorvastatin Calcium (Atorvastatin Calcium 40 Mg Tablet) 40 mg PO BEDTIME [facility] Last Admin: 04/21/23 20:18 Dose: 40 mg Documented By: IBETH Carvedilol (Carvedilol 3.125 Mg Tablet) 3.125 mg PO BID [facility]; Protocol Last Admin: 04/22/23 08:39 Dose: 3.125 mg Documented By: ASHLEE Clopidogrel Bisulfate (Clopidogrel Bisulfate 75 Mg Tablet) 75 mg PO DAILY [facility] Last Admin: 04/22/23 08:39 Dose: 75 mg Documented By: ASHLEE Cyanocobalamin (Cyanocobalamin (Vitamin B-12) 1,000 Mcg/Ml Vial) 1,000 mcg IM Q30D [facility] Last Admin: 04/08/23 11:46 Dose: 1,000 mcg Documented By: ASHLEE Dextrose (Dextrose 50 % 25 Gm/50 Ml Syringe) 25 gm IVPUSH Q15M PRN; Protocol PRN Reason: per Hypoglycemia Standing Ord. Docusate Sodium (Docusate Sodium 100 Mg Capsule) 100 mg PO BID PRN PRN Reason: Constipation Enoxaparin Sodium (Enoxaparin Sodium 40 Mg/0.4 Ml Syringe) 40 mg SUBCUT Q24H [facility] Last Admin: 04/21/23 20:18 Dose: 40 mg Documented By: IBETH Fluticasone/Umeclidinium/Vilanterol (Fluticasone/Umeclidinium/Vilanterol 200/62.5/25 Blst.W.Dev) 1 puff INHALE RDAILY [facility] Last Admin: 04/22/23 11:13 Dose: 1 puff Documented By: PERLA Folic Acid (Folic Acid 1 Mg Tablet) 1 mg PO DAILY [facility] Last Admin: 04/22/23 08:39 Dose: 1 mg Documented By: ASHLEE Furosemide (Furosemide 40 Mg Tablet) 40 mg PO DAILY [facility]; Protocol Last Admin: 04/22/23 08:39 Dose: 40 mg Documented By: ASHLEE Gabapentin (Gabapentin 300 Mg Capsule) 300 mg PO TID [facility] Last Admin: 04/22/23 15:41 Dose: 300 mg Documented By: ASHLEE Glucose (Glucose Gel 15 Gm Gel..Gram.) 15 gm PO Q15M PRN; Protocol PRN Reason: per Hypoglycemia Standing Ord. Insulin Human Lispro (Insulin Lispro 100 Unit/Ml 3 Ml Vial) 0 unit SUBCUT QIDACHS [facility]; Protocol Last Admin: 04/22/23 12:15 Dose: 2 unit Documented By: ASHLEE Lactulose (Lactulose 20 Gm/30 Ml Solution) 10 gm PO DAILY PRN PRN Reason: Constipation Melatonin (Melatonin 3 Mg Tablet) 6 mg PO BEDTIME PRN PRN Reason: Insomnia Metformin HCl (Metformin Hcl Er 500 Mg Tab.Er.24h) 500 mg PO DAILY@1800 [facility] Last Admin: 04/21/23 16:38 Dose: 500 mg Documented By: SINA Omeprazole (Omeprazole 20 Mg Capsule.Dr) 20 mg PO DAILY@0630 [facility] Last Admin: 04/22/23 05:09 Dose: 20 mg Documented By: JONI Ondansetron HCl (Ondansetron Hcl 4 Mg/2 Ml Vial) 4 mg IVPUSH Q8H PRN PRN Reason: Nausea and Vomiting Last Admin: 04/05/23 12:43 Dose: 4 mg Documented By: FERMIN Polyethylene Glycol (Polyethylene Glycol 3350 17 Gm Powd.Pack) 17 gm PO DAILY PRN PRN Reason: Constipation Quetiapine Fumarate (Quetiapine Fumarate 100 Mg Tablet) 100 mg PO TID [facility] Last Admin: 04/22/23 15:41 Dose: 100 mg Documented By: ASHLEE Senna (Sennosides 8.6 Mg Tablet) 17.2 mg PO BEDTIME [facility] Last Admin: 04/21/23 20:18 Dose: 17.2 mg Documented By: IBETH Sertraline HCl (Sertraline Hcl 100 Mg Tablet) 100 mg PO DAILY [facility] Last Admin: 04/22/23 08:39 Dose: 100 mg Documented By: ASHLEE Sodium Chloride (0.9 % Sodium Chloride Flush 3 Ml Syringe) 3 ml IVFLUSH QSHIFT [facility] Last Admin: 04/22/23 08:45 Dose: Not Given Documented By: ASHLEE Non-Admin Reason: No IV access Trazodone HCl (Trazodone Hcl 50 Mg Tablet) 50 mg PO BEDTIME [facility] Last Admin: 04/21/23 20:18 Dose: 50 mg Documented By: IBETH Labs 04/09/23 08:41 04/16/23 20:10 Labs: Laboratory Results - last 24 hr 04/21/23 04/22/23 04/22/23 19:57 07:12 10:58 POC Glucose 127 H 124 H 197 H 04/22/23 16:17 POC Glucose 129 H Procedures Date of Service Date of Service: 04/22/23 Progress Note: A&P Assessment and plan (1) Epidermal inclusion cyst: Status: Acute Plan Area of inflammation in the upper back previously felt to be lipoma however now is much more inflamed, tender to palpation. May be an infected sebaceous cyst although no abscess is appreciated at this time. Recommend ultrasound of the soft tissue to evaluate for abscess. Time Spent With Patient Time: Total time managing care of this patient today ____ minutes. Quality Stroke Does the patient have a stroke diagnosis?: No VTE Prior VTE?: No VTE Risk Level:: Medical - moderate - high VTE Device Contraindication: Treatment Not Indicated VTE Drug Contraindication: N/A - Med Ordered
--- NOTE | 2023-04-22 18:38 | PC.NURSE ---
PATIENT HAS BEEN CALM/COOPERATIVE/EASILY REDIRECTABLE SINCE DISCONTINUATION OF DEXAMETHASONE. PATIENT OCCASSIONALLY WILL YELL OUT TO BE CLEANED IF UNABLE TO FIND CALL PHELPS DUE TO BLINDNESS AND MISPLACING HIS PHELPS, BUT IS OTHERWISE COOPERATIVE WITH CARE, TAKING MEDICATION PRESCRIBED, AND ATTEMPTS TO WORK WITH PHYSICAL THERAPY TO GET OUT OF BED. PATIENT HAS A GRUFF DEMEANOR AT TIMES BUT IS OTHERWISE FUNNY AND PLEASANT.
[2023-04-22] MEDS: metFORMIN HCl ER 500 MG TAB.ER.24H PO (18:49)
[2023-04-22 19:15] VITALS: BP 103/51; PULSE 77; RESP 18; TEMP 36.6; O2SAT 92
[2023-04-22 20:08] LABS: Glucose, Whole Blood 193 mg/dL (60-115)
[2023-04-22 20:35] LABS: MANUAL DIFF FLAG NO
[2023-04-22 20:36] LABS: Basophils Percent Auto 0.3 % (0-2); Eosinophils Absolute Auto 0.3 X10*3/uL (0.0-0.4); Eosinophils Percent Auto 3.5 % (0-4); Hematocrit 33.1 % (42.0-52.0); Hemoglobin 10.9 g/dl (14.0-18.0); Imm Gran Abs Auto 0.03 X10*3/uL (0.00-0.03); Imm Gran Pct Auto 0.4 % (0.0-0.4); Lymphocytes Absolute Auto 0.8 X10*3/uL (1.2-4.9); Mean Corpuscular HGB Conc 32.9 g/dl (31.0-36.0); Mean Corpuscular Hemoglobin 33.3 pg (27.0-33.0); Mean Corpuscular Volume 101.2 fL (80.0-98.0); Mean Platelet Volume 8.4 fL (9.4-12.4); Monocytes Absolute Auto 0.4 X10*3/uL (0.1-1.2); Monocytes Percent Auto 5.8 % (2-11); Neutrophils Absolute Auto 5.7 x10*3/uL (2.0-8.3); Platelet Count 158 X10*3/uL (160-400); Red Blood Count 3.27 X10*6/uL (4.60-5.80); White Blood Count 7.2 X10*3/uL (4.8-10.8)
[2023-04-22 20:49] LABS: Alanine Aminotransferase 10 U/L (0-40); Albumin Level 2.7 g/dL (3.5-5.0); Alkaline Phosphatase 104 U/L (39-117); Anion Gap 11 (12-20); Aspartate Amino Transferase 10 U/L (5-37); Bilirubin Total 0.4 mg/dL (0.0-1.0); Blood Urea Nitrogen 22 mg/dL (9-16); Calcium 8.8 mg/dL (8.4-10.2); Carbon Dioxide 32 mmol/L (22-29); Chloride 101 mmol/L (96-108); Creatinine Clr Calc Pharmacy 79.1; Estimated Glomerular Filt Rate 56; Glucose Random 190 mg/dL (60-115); Potassium 4.4 mmol/L (3.3-5.1); Sodium 140 mmol/L (135-145); Total Protein 5.7 g/dL (6.5-8.0)
[2023-04-22] MEDS: Atorvastatin Calcium 40 MG TABLET PO (20:50)
[2023-04-22] MEDS: Melatonin 3 MG TABLET 6 MG PO (20:50)
[2023-04-22] MEDS: Enoxaparin Sodium 40 MG/0.4 ML SYRINGE SUBCUT (20:57)
[2023-04-22] MEDS: traZODone HCL 50 MG TABLET PO (20:58)
[2023-04-22 21:50] VITALS: RESP 18
[2023-04-23 03:32] VITALS: BP 130/60; PULSE 72; RESP 20; TEMP 36.4; O2SAT 91
[2023-04-23] MEDS: Omeprazole 20 MG CAPSULE.DR PO (05:39)
--- NOTE | 2023-04-23 06:00 | PC.NURSE ---
Assumed care of patient at 19:00. Patient is A&Ox3-4 and has been calm and cooperative, compliant with most meds except bowel regimen due to report of multiple BMs earlier today; scheduled bowel regimen held per pt request. BM x1 this shift. NSR on tele. Scheduled coreg held per MD for soft BP. Per chart review patient had an abdominal ultrasound for a questionable mid-back lesion versus cyst at the recommendation of consulted general surgery; ultrasound showed a complex fluid collection with concern for abscess. Covering Dr. Yan Hawk notified, CBC with diff and CMP ordered and obtained. No leukocytosis noted. Pt remains afebrile for credit underwriter. Pt medicated in the evening for pain at this site with repositioning with +effect. Pt resting in bed appearing comfortable overnight, denied further pain. Breathing observed even and unlabored without distress on patient's baseline 2L nc. Bed alarm on and in-room camera for safety. Plan of care continues.
[2023-04-23 07:24] VITALS: BP 109/52; PULSE 75; RESP 20; TEMP 36.6; O2SAT 93
[2023-04-23] MEDS: Fluticasone/Umeclidinium/Vilanterol 200/62.5/25 BLST.W.DEV 1 PUFF INHALE (07:25)
[2023-04-23 07:26] VITALS: PULSE 75; RESP 20; O2SAT 91
[2023-04-23 07:26] LABS: Glucose, Whole Blood 109 mg/dL (60-115)
[2023-04-23 07:44] LABS: Creatinine Clr Calc Pharmacy 90.6; Estimated Glomerular Filt Rate > 60
[2023-04-23] MEDS: Gabapentin 300 MG CAPSULE PO ×3 (08:06→22:49)
[2023-04-23] MEDS: Folic Acid 1 MG TABLET PO (08:06)
[2023-04-23] MEDS: carvediloL 3.125 MG TABLET PO ×2 (08:06→22:49)
[2023-04-23] MEDS: Aspirin Enteric Coated 81 MG TABLET.DR PO (08:06)
[2023-04-23] MEDS: QUEtiapine Fumarate 100 MG TABLET PO ×3 (08:06→22:49)
[2023-04-23] MEDS: Sertraline HCL 100 MG TABLET PO (08:06)
[2023-04-23] MEDS: Clopidogrel Bisulfate 75 MG TABLET PO (08:06)
[2023-04-23] MEDS: Furosemide 40 MG TABLET PO (08:06)
[2023-04-23] MEDS: Acetaminophen 325 MG TABLET 975 MG PO ×3 (08:06→22:49)
--- NOTE | 2023-04-23 10:45 | PM.PNGS ---
Subjective Subjective Date of Service: 04/23/23 Interval history: C/o back pain. US performed yesterday suggests abscess. Physical Exam Vital Signs: Vital Signs: Last Vital Signs Temp 97.8 F 04/23/23 07:24 Pulse 75 04/23/23 07:26 Resp 20 04/23/23 07:26 BP 109/52 L 04/23/23 07:24 Pulse Ox 93 04/23/23 07:24 O2 Del Method Nasal Cannula 04/23/23 07:24 O2 Flow Rate 2 04/23/23 07:24 Oxygen Flow Rate 3 03/15/23 18:32 BMI result Body Mass Index 44.3 Const: General: comfortable, no acute distress and alert Orientation/consciousness: patient oriented x3 Back/Spine/Pelvis: Other: central/left midback with large indurated erythematous area with central punctate, area tender, no drainage Neuro: General: patient oriented x3 and moves all extremities Objective Data Active Medications Acetaminophen (Acetaminophen 325 Mg Tablet) 975 mg PO TID [facility] Last Admin: 04/23/23 08:06 Dose: 975 mg Documented By: ASHLEE Al Hydroxide/Mg Hydroxide (Magnesium Hydrox/Alum Hydrox 30 Ml Oral.Susp) 30 ml PO Q6H PRN PRN Reason: dyspepsia Albuterol Sulfate (Albuterol Sulfate 90 Mcg 8 Gm Inhaler) 2 puff INHALE Q4H PRN PRN Reason: Wheezing Aspirin (Aspirin Enteric Coated 81 Mg Tablet.) 81 mg PO DAILY [facility] Last Admin: 04/23/23 08:06 Dose: 81 mg Documented By: ASHLEE Atorvastatin Calcium (Atorvastatin Calcium 40 Mg Tablet) 40 mg PO BEDTIME [facility] Last Admin: 04/22/23 20:50 Dose: 40 mg Documented By: KATRINA Carvedilol (Carvedilol 3.125 Mg Tablet) 3.125 mg PO BID [facility]; Protocol Last Admin: 04/23/23 08:06 Dose: 3.125 mg Documented By: ASHLEE Clopidogrel Bisulfate (Clopidogrel Bisulfate 75 Mg Tablet) 75 mg PO DAILY [facility] Last Admin: 04/23/23 08:06 Dose: 75 mg Documented By: ASHLEE Cyanocobalamin (Cyanocobalamin (Vitamin B-12) 1,000 Mcg/Ml Vial) 1,000 mcg IM Q30D [facility] Last Admin: 04/08/23 11:46 Dose: 1,000 mcg Documented By: ASHLEE Dextrose (Dextrose 50 % 25 Gm/50 Ml Syringe) 25 gm IVPUSH Q15M PRN; Protocol PRN Reason: per Hypoglycemia Standing Ord. Docusate Sodium (Docusate Sodium 100 Mg Capsule) 100 mg PO BID PRN PRN Reason: Constipation Enoxaparin Sodium (Enoxaparin Sodium 40 Mg/0.4 Ml Syringe) 40 mg SUBCUT Q24H [facility] Last Admin: 04/22/23 20:57 Dose: 40 mg Documented By: KATRINA Fluticasone/Umeclidinium/Vilanterol (Fluticasone/Umeclidinium/Vilanterol 200/62.5/25 Blst.W.Dev) 1 puff INHALE RDAILY [facility] Last Admin: 04/23/23 07:25 Dose: 1 puff Documented By: JASSI Folic Acid (Folic Acid 1 Mg Tablet) 1 mg PO DAILY [facility] Last Admin: 04/23/23 08:06 Dose: 1 mg Documented By: ASHLEE Furosemide (Furosemide 40 Mg Tablet) 40 mg PO DAILY [facility]; Protocol Last Admin: 04/23/23 08:06 Dose: 40 mg Documented By: ASHLEE Gabapentin (Gabapentin 300 Mg Capsule) 300 mg PO TID [facility] Last Admin: 04/23/23 08:06 Dose: 300 mg Documented By: ASHLEE Glucose (Glucose Gel 15 Gm Gel..Gram.) 15 gm PO Q15M PRN; Protocol PRN Reason: per Hypoglycemia Standing Ord. Piperacillin Sod/Tazobactam (Sod 3.375 gm/ Sodium Chloride) 50 mls @ 100 mls/hr IV Q6H [facility] Insulin Human Lispro (Insulin Lispro 100 Unit/Ml 3 Ml Vial) 0 unit SUBCUT QIDACHS [facility]; Protocol Last Admin: 04/23/23 07:32 Dose: Not Given Documented By: ASHLEE Non-Admin Reason: No Insulin Coverage Lactulose (Lactulose 20 Gm/30 Ml Solution) 10 gm PO DAILY PRN PRN Reason: Constipation Melatonin (Melatonin 3 Mg Tablet) 6 mg PO BEDTIME PRN PRN Reason: Insomnia Last Admin: 04/22/23 20:50 Dose: 6 mg Documented By: KATRINA Metformin HCl (Metformin Hcl Er 500 Mg Tab.Er.24h) 500 mg PO DAILY@1800 [facility] Last Admin: 04/22/23 18:49 Dose: 500 mg Documented By: ASHLEE Omeprazole (Omeprazole 20 Mg Capsule.Dr) 20 mg PO DAILY@0630 [facility] Last Admin: 04/23/23 05:39 Dose: 20 mg Documented By: KATRINA Ondansetron HCl (Ondansetron Hcl 4 Mg/2 Ml Vial) 4 mg IVPUSH Q8H PRN PRN Reason: Nausea and Vomiting Last Admin: 04/05/23 12:43 Dose: 4 mg Documented By: FERMIN Polyethylene Glycol (Polyethylene Glycol 3350 17 Gm Powd.Pack) 17 gm PO DAILY PRN PRN Reason: Constipation Quetiapine Fumarate (Quetiapine Fumarate 100 Mg Tablet) 100 mg PO TID [facility] Last Admin: 04/23/23 08:06 Dose: 100 mg Documented By: ASHLEE Senna (Sennosides 8.6 Mg Tablet) 17.2 mg PO BEDTIME [facility] Last Admin: 04/22/23 21:00 Dose: Not Given Documented By: KATRINA Non-Admin Reason: Patient Refused Sertraline HCl (Sertraline Hcl 100 Mg Tablet) 100 mg PO DAILY [facility] Last Admin: 04/23/23 08:06 Dose: 100 mg Documented By: ASHLEE Sodium Chloride (0.9 % Sodium Chloride Flush 3 Ml Syringe) 3 ml IVFLUSH QSHIFT [facility] Last Admin: 04/23/23 08:07 Dose: Not Given Documented By: ASHLEE Non-Admin Reason: No IV access Trazodone HCl (Trazodone Hcl 50 Mg Tablet) 50 mg PO BEDTIME [facility] Last Admin: 04/22/23 20:58 Dose: 50 mg Documented By: KATRINA Labs 04/22/23 20:26 04/23/23 07:01 Labs: Laboratory Results - last 24 hr 04/22/23 04/22/23 04/22/23 10:58 16:17 19:19 MCV MCH MCHC RDW Plt Count MPV Immature Gran % (Auto) Neut % (Auto) Lymph % (Auto) Swift % (Auto) Eos % (Auto) Baso % (Auto) Lymph # (Auto) Swift # (Auto) Eos # (Auto) Baso # (Auto) Abs Immat Gran (auto) Absolute Neuts (auto) Absolute Nucleated RBC Nucleated RBC % (auto) Anion Gap Estim Creat Clear Calc Estimated GFR POC Glucose 197 H 129 H 193 H Random Glucose Calcium Total Bilirubin AST ALT Alkaline Phosphatase Total Protein Albumin 04/22/23 04/23/23 04/23/23 20:26 07:01 07:22 MCV 101.2 H MCH 33.3 H MCHC 32.9 RDW 16.0 Plt Count 158 L MPV 8.4 L Immature Gran % (Auto) 0.4 Neut % (Auto) 79.0 H Lymph % (Auto) 11.0 L Swift % (Auto) 5.8 Eos % (Auto) 3.5 Baso % (Auto) 0.3 Lymph # (Auto) 0.8 L Swift # (Auto) 0.4 Eos # (Auto) 0.3 Baso # (Auto) 0.0 Abs Immat Gran (auto) 0.03 Absolute Neuts (auto) 5.7 Absolute Nucleated RBC 0.000 Nucleated RBC % (auto) 0.0 Anion Gap 11 L Estim Creat Clear Calc 79.1 90.6 Estimated GFR 56 > 60 POC Glucose 109 Random Glucose 190 H Calcium 8.8 Total Bilirubin 0.4 AST 10 ALT 10 Alkaline Phosphatase 104 Total Protein 5.7 L Albumin 2.7 L Procedures Date of Service Date of Service: 04/23/23 Progress Note: A&P Assessment and plan (1) Epidermal inclusion cyst: Status: Acute (2) Back abscess: Status: Acute Plan Patient with epidermal inclusion cyst secondarily infected now with abscess and subsequent surrounding cellulitis. Recommended to proceed with I&D of back abscess. Patient in agreement. Patient was placed in right lateral decubitus position. The site of procedure was confirmed by the patient. After assuring informed consent, the skin was prepped with Betadine. 20cc 1% lidocaine local anesthesia was then infiltrated over the central portion of the induration and punctate. An incision was made with an 11 blade measuring approximately 3 cm the same location. This was deepened into the subcutaneous tissue with a milan clamp. A pocket was identified and a large amount of purulent fluid was evacuated. A culture was obtained. The area was then probed to ensure any loculations were broken up and the entire collection was drained. No further fluctuance was appreciated. Pressure was held with sterile gauze until hemostasis ensured. The patient tolerated the procedure well. Can perform daily dressing changes with saline soaked kerlix roll followed by fluffs and abdominal dressing. Time Spent With Patient Time: Total time managing care of this patient today ____ minutes. Quality Stroke Does the patient have a stroke diagnosis?: No VTE Prior VTE?: No VTE Risk Level:: Medical - moderate - high VTE Device Contraindication: Treatment Not Indicated VTE Drug Contraindication: N/A - Med Ordered
--- NOTE | 2023-04-23 11:31 | MHC.CM.PN ---
EMR reviewed and per MD rounds, pt is not medically cleared for D/C due to back abscess pending surgical drain this afternoon.
[2023-04-23 11:51] LABS: Glucose, Whole Blood 195 mg/dL (60-115)
--- NOTE | 2023-04-23 13:13 | MHC.SL.SWA ---
Speech Pathologist Impression: Risk of aspiration, oropharyngeal dysphagia Risk of Aspiration Due to: Reduced Cognition None Dysphasia Diet Status: Recommend continue on Chopped/Advanced diet (NDD3) to assure softer foods that a pre-cut, thin liquids, and pills whole with liquid. Patient requires 1-1 assistance at all meals. Liquid Consistency and Strategies for Safe Swallow: Liquid Intake Recommendation: Thin Liquid Intake Strategies: Small Sips Solid Food Consistency: Dietary Recommendations: Chopped/Advanced (NDD3) Additional Modifications to Solid Foods: Patient requires full assistance at all meals, including preparing tray by adding sauces and gravies, opening all items, orienting patient verbally to what is on his tray, then directly feeding patient. Oral Medication Intake: Whole with Liquid Please contact the pharmacy regarding appropriate crushable or liquid drug formulations that are available whenever modified delivery is recommended. Compensatory Strategies and Precautions to be Taken for Safe Swallow: Sitting Upright (90 deg) Small Bites and Sips Alternate Liquids/Solids Rate of Ingestion Change Avoid Specific Foods Supervision While Eating and Drinking for Safe Swallow: Total Assistance (1:1) Foods to Avoid: Dry, tough to chew, sticky foods, large pieces of uncut meat. Swallowing Recommended Treatments: Compens. Strategy Educat. Recommendation for Speech: Inpatient Speech Therapy Comment: 1:1 assistance feeding Frequency/Duration: M-F during hospitalization Date Range for Service Req: Timeline to reassess: Bilingual Medical Receptionist Clinican/Clinical Fellow: No Supervisory Statement: I have reviewed and agree with the student/clinical fellow's documentation: N/A Speech Language Pathologist: Peace Shepherd M.A., CCC-SIGN PAINTER HELPER
[2023-04-23 14:54] VITALS: BP 127/55; PULSE 84; RESP 20; TEMP 37; O2SAT 92
[2023-04-23] MEDS: Amoxicillin/Potassium Clav 4,000 MG/50 ML SUSP.RECON 875 MG PO ×2 (15:51→22:49)
[2023-04-23 16:31] LABS: Glucose, Whole Blood 131 mg/dL (60-115)
--- NOTE | 2023-04-23 17:46 | P.PNIM_ITS ---
Subjective Subjective Date of Service: 04/23/23 Interval History: back abcess Review of Systems s/p I&D No feveror chills Physical Exam 2 Vital Signs: Vital Signs: Last Vital Signs Temp 98.6 F 04/23/23 14:54 Pulse 84 04/23/23 14:54 Resp 20 04/23/23 14:54 BP 127/55 L 04/23/23 14:54 Pulse Ox 92 04/23/23 14:54 O2 Del Method Nasal Cannula 04/23/23 14:54 O2 Flow Rate 2 04/23/23 14:54 Oxygen Flow Rate 3 03/15/23 18:32 BMI result Body Mass Index 44.3 Appearance: awake,not in distress.? cvs: [id number], [id number] . res: clear to auscultation ,no rhonchii or wheezing abd: no rebound or guarding ,nt, bs present. ext pulses present , no cyanosis . neuro: axo3 , nonfocal. Objective Data Active Medications Acetaminophen (Acetaminophen 325 Mg Tablet) 975 mg PO TID [facility] Last Admin: 04/23/23 15:05 Dose: 975 mg Documented By: ASHLEE Al Hydroxide/Mg Hydroxide (Magnesium Hydrox/Alum Hydrox 30 Ml Oral.Susp) 30 ml PO Q6H PRN PRN Reason: dyspepsia Albuterol Sulfate (Albuterol Sulfate 90 Mcg 8 Gm Inhaler) 2 puff INHALE Q4H PRN PRN Reason: Wheezing Amoxicillin/Clavulanate Potassium (Amoxicillin/Potassium Clav 4,000 Mg/50 Ml Susp.Recon) 875 mg PO BID [facility] Last Admin: 04/23/23 15:51 Dose: 875 mg Documented By: ASHLEE Aspirin (Aspirin Enteric Coated 81 Mg Tablet.) 81 mg PO DAILY [facility] Last Admin: 04/23/23 08:06 Dose: 81 mg Documented By: ASHLEE Atorvastatin Calcium (Atorvastatin Calcium 40 Mg Tablet) 40 mg PO BEDTIME [facility] Last Admin: 04/22/23 20:50 Dose: 40 mg Documented By: KATRINA Carvedilol (Carvedilol 3.125 Mg Tablet) 3.125 mg PO BID [facility]; Protocol Last Admin: 04/23/23 08:06 Dose: 3.125 mg Documented By: ASHLEE Clopidogrel Bisulfate (Clopidogrel Bisulfate 75 Mg Tablet) 75 mg PO DAILY [facility] Last Admin: 04/23/23 08:06 Dose: 75 mg Documented By: ASHLEE Cyanocobalamin (Cyanocobalamin (Vitamin B-12) 1,000 Mcg/Ml Vial) 1,000 mcg IM Q30D [facility] Last Admin: 04/08/23 11:46 Dose: 1,000 mcg Documented By: ASHLEE Dextrose (Dextrose 50 % 25 Gm/50 Ml Syringe) 25 gm IVPUSH Q15M PRN; Protocol PRN Reason: per Hypoglycemia Standing Ord. Docusate Sodium (Docusate Sodium 100 Mg Capsule) 100 mg PO BID PRN PRN Reason: Constipation Enoxaparin Sodium (Enoxaparin Sodium 40 Mg/0.4 Ml Syringe) 40 mg SUBCUT Q24H [facility] Last Admin: 04/22/23 20:57 Dose: 40 mg Documented By: KATRINA Fluticasone/Umeclidinium/Vilanterol (Fluticasone/Umeclidinium/Vilanterol 200/62.5/25 Blst.W.Dev) 1 puff INHALE RDAILY [facility] Last Admin: 04/23/23 07:25 Dose: 1 puff Documented By: JASSI Folic Acid (Folic Acid 1 Mg Tablet) 1 mg PO DAILY [facility] Last Admin: 04/23/23 08:06 Dose: 1 mg Documented By: ASHLEE Furosemide (Furosemide 40 Mg Tablet) 40 mg PO DAILY [facility]; Protocol Last Admin: 04/23/23 08:06 Dose: 40 mg Documented By: ASHLEE Gabapentin (Gabapentin 300 Mg Capsule) 300 mg PO TID [facility] Last Admin: 04/23/23 15:05 Dose: 300 mg Documented By: ASHLEE Glucose (Glucose Gel 15 Gm Gel..Gram.) 15 gm PO Q15M PRN; Protocol PRN Reason: per Hypoglycemia Standing Ord. Insulin Human Lispro (Insulin Lispro 100 Unit/Ml 3 Ml Vial) 0 unit SUBCUT QIDACHS [facility]; Protocol Last Admin: 04/23/23 15:03 Dose: Not Given Documented By: ASHLEE Non-Admin Reason: patient refused Lactulose (Lactulose 20 Gm/30 Ml Solution) 10 gm PO DAILY PRN PRN Reason: Constipation Melatonin (Melatonin 3 Mg Tablet) 6 mg PO BEDTIME PRN PRN Reason: Insomnia Last Admin: 04/22/23 20:50 Dose: 6 mg Documented By: KATRINA Metformin HCl (Metformin Hcl Er 500 Mg Tab.Er.24h) 500 mg PO DAILY@1800 [facility] Last Admin: 04/22/23 18:49 Dose: 500 mg Documented By: ASHLEE Omeprazole (Omeprazole 20 Mg Capsule.Dr) 20 mg PO DAILY@0630 [facility] Last Admin: 04/23/23 05:39 Dose: 20 mg Documented By: KATRINA Ondansetron HCl (Ondansetron Hcl 4 Mg/2 Ml Vial) 4 mg IVPUSH Q8H PRN PRN Reason: Nausea and Vomiting Last Admin: 04/05/23 12:43 Dose: 4 mg Documented By: FERMIN Polyethylene Glycol (Polyethylene Glycol 3350 17 Gm Powd.Pack) 17 gm PO DAILY PRN PRN Reason: Constipation Quetiapine Fumarate (Quetiapine Fumarate 100 Mg Tablet) 100 mg PO TID [facility] Last Admin: 04/23/23 15:05 Dose: 100 mg Documented By: ASHLEE Senna (Sennosides 8.6 Mg Tablet) 17.2 mg PO BEDTIME [facility] Last Admin: 04/22/23 21:00 Dose: Not Given Documented By: KATRINA Non-Admin Reason: Patient Refused Sertraline HCl (Sertraline Hcl 100 Mg Tablet) 100 mg PO DAILY [facility] Last Admin: 04/23/23 08:06 Dose: 100 mg Documented By: ASHLEE Sodium Chloride (0.9 % Sodium Chloride Flush 3 Ml Syringe) 3 ml IVFLUSH QSHIFT [facility] Last Admin: 04/23/23 08:07 Dose: Not Given Documented By: ASHLEE Non-Admin Reason: No IV access Trazodone HCl (Trazodone Hcl 50 Mg Tablet) 50 mg PO BEDTIME [facility] Last Admin: 04/22/23 20:58 Dose: 50 mg Documented By: KATRINA Labs 04/22/23 20:26 04/23/23 07:01 Labs: Laboratory Results - last 24 hr 04/22/23 04/22/23 04/23/23 19:19 20:26 07:01 MCV 101.2 H MCH 33.3 H MCHC 32.9 RDW 16.0 Plt Count 158 L MPV 8.4 L Immature Gran % (Auto) 0.4 Neut % (Auto) 79.0 H Lymph % (Auto) 11.0 L [place] % (Auto) 5.8 Eos % (Auto) 3.5 Baso % (Auto) 0.3 Lymph # (Auto) 0.8 L [place] # (Auto) 0.4 Eos # (Auto) 0.3 Baso # (Auto) 0.0 Abs Immat Gran (auto) 0.03 Absolute Neuts (auto) 5.7 Absolute Nucleated RBC 0.000 Nucleated RBC % (auto) 0.0 Anion Gap 11 L Estim Creat Clear Calc 79.1 90.6 Estimated GFR 56 > 60 POC Glucose 193 H Random Glucose 190 H Calcium 8.8 Total Bilirubin 0.4 AST 10 ALT 10 Alkaline Phosphatase 104 Total Protein 5.7 L Albumin 2.7 L 04/23/23 04/23/23 04/23/23 07:22 11:48 16:23 MCV MCH MCHC RDW Plt Count MPV Immature Gran % (Auto) Neut % (Auto) Lymph % (Auto) [place] % (Auto) Eos % (Auto) Baso % (Auto) Lymph # (Auto) [place] # (Auto) Eos # (Auto) Baso # (Auto) Abs Immat Gran (auto) Absolute Neuts (auto) Absolute Nucleated RBC Nucleated RBC % (auto) Anion Gap Estim Creat Clear Calc Estimated GFR POC Glucose 109 195 H 131 H Random Glucose Calcium Total Bilirubin AST ALT Alkaline Phosphatase Total Protein Albumin Microbiology Microbiology Results: Microbiology 04/23/23 10:40 Gram Stain - Final Back Assessment and Plan (1) Hypoxia: Status: Acute Plan 72-year-old male with a PMH significant for?CAD, [id number] diabetes type 2, who initially presented presents to the ED on 03/15/2023 from [facility] after reportedly having hallucinations and being combative with staff. Pt was placed in physician observation in the ED until he became hypoxic and tested positive for COVID admitted to the medical floor for treatment and further evaluation of acute hypoxic respiratory failure in the setting of COVID infection. back lower Lumbar abcess s/p i&d day1 no fever or chills noleucocytosis started on po augmentin Acute hypoxic respiratory failure in the setting COVID 19 infection -Finished course of dexamethasone and remdesivir -baseline home oxygen 2 L Left mid back discomfort -lipoma -no acute intervention. HTN -acceptable control on current therapies -adjust as indicated [id number] type 2 diabetes -acceptable control on current therapies -lispro correctional scale -adjust as indicated Full Code Lovenox requires continued hospital stay for safe disposition . Quality Stroke Does the patient have a stroke diagnosis?: No VTE Prior VTE?: No VTE Risk Level:: Medical - moderate - high VTE Device Contraindication: Treatment Not Indicated VTE Drug Contraindication: N/A - Med Ordered
[2023-04-23] MEDS: metFORMIN HCl ER 500 MG TAB.ER.24H PO (17:59)
[2023-04-23 20:00] VITALS: BP 136/75; PULSE 93; RESP 20; TEMP 37.5; O2SAT 93
[2023-04-23 21:00] LABS: Glucose, Whole Blood 122 mg/dL (60-115)
[2023-04-23] MEDS: Sennosides 8.6 MG TABLET 17.2 MG PO (22:48)
[2023-04-23] MEDS: Atorvastatin Calcium 40 MG TABLET PO (22:48)
[2023-04-23] MEDS: traZODone HCL 50 MG TABLET PO (22:50)
[2023-04-23] MEDS: Enoxaparin Sodium 40 MG/0.4 ML SYRINGE SUBCUT (22:50)
[2023-04-24] VITALS (7 sets, daily range): BP systolic 95–117; BP diastolic 47–58; PULSE 66–74; RESP 18–20; TEMP 36.1–36.4; O2SAT 90–96
[2023-04-24] MEDS: Omeprazole 20 MG CAPSULE.DR PO (06:03)
[2023-04-24 07:07] LABS: Glucose, Whole Blood 108 mg/dL (60-115)
[2023-04-24] MEDS: Fluticasone/Umeclidinium/Vilanterol 200/62.5/25 BLST.W.DEV 1 PUFF INHALE (08:07)
[2023-04-24] MEDS: Sertraline HCL 100 MG TABLET PO (10:02)
[2023-04-24] MEDS: QUEtiapine Fumarate 100 MG TABLET PO ×3 (10:02→22:24)
[2023-04-24] MEDS: Clopidogrel Bisulfate 75 MG TABLET PO (10:02)
[2023-04-24] MEDS: Aspirin Enteric Coated 81 MG TABLET.DR PO (10:02)
[2023-04-24] MEDS: Gabapentin 300 MG CAPSULE PO ×3 (10:02→22:23)
[2023-04-24] MEDS: Folic Acid 1 MG TABLET PO (10:02)
[2023-04-24] MEDS: Furosemide 40 MG TABLET PO (10:02)
[2023-04-24] MEDS: carvediloL 3.125 MG TABLET PO ×2 (10:02→22:23)
[2023-04-24] MEDS: Acetaminophen 325 MG TABLET 975 MG PO ×3 (10:02→22:24)
[2023-04-24] MEDS: Amoxicillin/Potassium Clav 4,000 MG/50 ML SUSP.RECON 875 MG PO ×2 (10:03→22:24)
[2023-04-24 11:03] LABS: Glucose, Whole Blood 165 mg/dL (60-115)
--- NOTE | 2023-04-24 11:46 | MHC.CM.PN ---
OF THIS NOTE, 221 SNF REFERRALS HAVE BEEN PLACED. ZERO BEDS OFFERS. CM ATTEMPTING TO PLACE PATIENT ON [facility] WAIT LIST.
--- NOTE | 2023-04-24 12:03 | PC.NURSE ---
Encouraged patient to get out of bed using jaison lift to sit in chair, pt refuses at this time. Education provided on importance of changing position to prevent skin breakdown. Pt allowing staff to turn and reposition in bed every two hours with pillows and PRN. Foam dressing applied to bilateral heels (for prevention) and coccyx (per wound care).
--- NOTE | 2023-04-24 12:44 | PC.NURSE ---
MD Osorio made aware pts o2 88-89% on 2L, increased o2 to 3L saturating 96%. Pt denies any SOB.
--- NOTE | 2023-04-24 14:56 | HO.PM.IMPN ---
Subjective Subjective Date of Service: 04/24/23 Interval History: back abcess Review of Systems s/p I&D No feveror chills Physical Exam Vital Signs: Vital Signs: Last Vital Signs Temp 97.4 F 04/24/23 07:10 Pulse 70 04/24/23 10:06 Resp 18 04/24/23 08:10 BP 105/56 L 04/24/23 10:06 Pulse Ox 96 04/24/23 10:15 O2 Del Method Nasal Cannula 04/24/23 10:15 O2 Flow Rate 3 04/24/23 10:15 Oxygen Flow Rate 3 03/15/23 18:32 BMI result Body Mass Index 44.3 Appearance: awake,not in distress.? cvs: rrr, [id number] . res: clear to auscultation ,no rhonchii or wheezing abd: no rebound or guarding ,nt, bs present. ext pulses present , no cyanosis . neuro: axo3 , nonfocal. Objective Data Active Medications Acetaminophen (Acetaminophen 325 Mg Tablet) 975 mg PO TID [facility] Last Admin: 04/24/23 10:02 Dose: 975 mg Documented By: BRENDEN Al Hydroxide/Mg Hydroxide (Magnesium Hydrox/Alum Hydrox 30 Ml Oral.Susp) 30 ml PO Q6H PRN PRN Reason: dyspepsia Albuterol Sulfate (Albuterol Sulfate 90 Mcg 8 Gm Inhaler) 2 puff INHALE Q4H PRN PRN Reason: Wheezing Amoxicillin/Clavulanate Potassium (Amoxicillin/Potassium Clav 4,000 Mg/50 Ml Susp.Recon) 875 mg PO BID [facility] Last Admin: 04/24/23 10:03 Dose: 875 mg Documented By: BRENDEN Aspirin (Aspirin Enteric Coated 81 Mg Tablet.Dr) 81 mg PO DAILY [facility] Last Admin: 04/24/23 10:02 Dose: 81 mg Documented By: BRENDEN Atorvastatin Calcium (Atorvastatin Calcium 40 Mg Tablet) 40 mg PO BEDTIME [facility] Last Admin: 04/23/23 22:48 Dose: 40 mg Documented By: DEBI Carvedilol (Carvedilol 3.125 Mg Tablet) 3.125 mg PO BID [facility]; Protocol Last Admin: 04/24/23 10:02 Dose: 3.125 mg Documented By: BRENDEN Clopidogrel Bisulfate (Clopidogrel Bisulfate 75 Mg Tablet) 75 mg PO DAILY [facility] Last Admin: 04/24/23 10:02 Dose: 75 mg Documented By: BRENDEN Cyanocobalamin (Cyanocobalamin (Vitamin B-12) 1,000 Mcg/Ml Vial) 1,000 mcg IM Q30D [facility] Last Admin: 04/08/23 11:46 Dose: 1,000 mcg Documented By: ASHLEE Dextrose (Dextrose 50 % 25 Gm/50 Ml Syringe) 25 gm IVPUSH Q15M PRN; Protocol PRN Reason: per Hypoglycemia Standing Ord. Docusate Sodium (Docusate Sodium 100 Mg Capsule) 100 mg PO BID PRN PRN Reason: Constipation Enoxaparin Sodium (Enoxaparin Sodium 40 Mg/0.4 Ml Syringe) 40 mg SUBCUT Q24H [facility] Last Admin: 04/23/23 22:50 Dose: 40 mg Documented By: DEBI Fluticasone/Umeclidinium/Vilanterol (Fluticasone/Umeclidinium/Vilanterol 200/62.5/25 Blst.W.Dev) 1 puff INHALE RDAILY [facility] Last Admin: 04/24/23 08:07 Dose: 1 puff Documented By: JASON Folic Acid (Folic Acid 1 Mg Tablet) 1 mg PO DAILY [facility] Last Admin: 04/24/23 10:02 Dose: 1 mg Documented By: BRENDEN Furosemide (Furosemide 40 Mg Tablet) 40 mg PO DAILY [facility]; Protocol Last Admin: 04/24/23 10:02 Dose: 40 mg Documented By: BRENDEN Gabapentin (Gabapentin 300 Mg Capsule) 300 mg PO TID [facility] Last Admin: 04/24/23 10:02 Dose: 300 mg Documented By: BRENDEN Glucose (Glucose Gel 15 Gm Gel..Gram.) 15 gm PO Q15M PRN; Protocol PRN Reason: per Hypoglycemia Standing Ord. Insulin Human Lispro (Insulin Lispro 100 Unit/Ml 3 Ml Vial) 0 unit SUBCUT QIDACHS [facility]; Protocol Last Admin: 04/24/23 12:07 Dose: Not Given Documented By: BRENDEN Non-Admin Reason: pt refusing to eat lunch Lactulose (Lactulose 20 Gm/30 Ml Solution) 10 gm PO DAILY PRN PRN Reason: Constipation Melatonin (Melatonin 3 Mg Tablet) 6 mg PO BEDTIME PRN PRN Reason: Insomnia Last Admin: 04/22/23 20:50 Dose: 6 mg Documented By: KATRINA Metformin HCl (Metformin Hcl Er 500 Mg Tab.Er.24h) 500 mg PO DAILY@1800 [facility] Last Admin: 04/23/23 17:59 Dose: 500 mg Documented By: ZACK Omeprazole (Omeprazole 20 Mg Capsule.Dr) 20 mg PO DAILY@0630 [facility] Last Admin: 04/24/23 06:03 Dose: 20 mg Documented By: DEBI Ondansetron HCl (Ondansetron Hcl 4 Mg/2 Ml Vial) 4 mg IVPUSH Q8H PRN PRN Reason: Nausea and Vomiting Last Admin: 04/05/23 12:43 Dose: 4 mg Documented By: FERMIN Polyethylene Glycol (Polyethylene Glycol 3350 17 Gm Powd.Pack) 17 gm PO DAILY PRN PRN Reason: Constipation Quetiapine Fumarate (Quetiapine Fumarate 100 Mg Tablet) 100 mg PO TID [facility] Last Admin: 04/24/23 10:02 Dose: 100 mg Documented By: BRENDEN Senna (Sennosides 8.6 Mg Tablet) 17.2 mg PO BEDTIME [facility] Last Admin: 04/23/23 22:48 Dose: 17.2 mg Documented By: DEBI Sertraline HCl (Sertraline Hcl 100 Mg Tablet) 100 mg PO DAILY [facility] Last Admin: 04/24/23 10:02 Dose: 100 mg Documented By: BRENDEN Sodium Chloride (0.9 % Sodium Chloride Flush 3 Ml Syringe) 3 ml IVFLUSH QSHIFT [facility] Last Admin: 04/24/23 10:15 Dose: Not Given Documented By: BRENDEN Non-Admin Reason: No IV present Trazodone HCl (Trazodone Hcl 50 Mg Tablet) 50 mg PO BEDTIME [facility] Last Admin: 04/23/23 22:50 Dose: 50 mg Documented By: DEBI Labs 04/22/23 20:26 04/23/23 07:01 Labs: Laboratory Results - last 24 hr 04/23/23 04/23/23 04/24/23 16:23 20:50 06:58 POC Glucose 131 H 122 H 108 04/24/23 10:53 POC Glucose 165 H Microbiology Microbiology Results: Microbiology 04/23/23 10:40 Gram Stain - Final Back Routine Culture - Preliminary No growth to date. Assessment and Plan (1) Back abscess: Status: Acute Plan 72-year-old male with a PMH significant for?CAD, [id number] diabetes type 2, who initially presented presents to the ED on [facility] after reportedly having hallucinations and being combative with staff. Pt was placed in physician observation in the ED until he became hypoxic and tested positive for COVID admitted to the medical floor for treatment and further evaluation of acute hypoxic respiratory failure in the setting of COVID infection. back lower Lumbar abcess s/p i&d day 2 no fever or chills noleucocytosis started on po augmentin Acute hypoxic respiratory failure in the setting COVID 19 infection -Finished course of dexamethasone and remdesivir -baseline home oxygen 2 L Left mid back discomfort -lipoma -no acute intervention. HTN -acceptable control on current therapies -adjust as indicated Ozg-jvciuhe-rkycckizy type 2 diabetes -acceptable control on current therapies -lispro correctional scale -adjust as indicated Full Code Lovenox requires continued hospital stay for safe disposition . Quality Stroke Does the patient have a stroke diagnosis?: No VTE Prior VTE?: No VTE Risk Level:: Medical - moderate - high VTE Device Contraindication: Treatment Not Indicated VTE Drug Contraindication: N/A - Med Ordered
[2023-04-24 16:12] LABS: Glucose, Whole Blood 120 mg/dL (60-115)
[2023-04-24] MEDS: metFORMIN HCl ER 500 MG TAB.ER.24H PO (17:25)
[2023-04-24 20:12] LABS: Glucose, Whole Blood 118 mg/dL (60-115)
[2023-04-24] MEDS: Enoxaparin Sodium 40 MG/0.4 ML SYRINGE SUBCUT (22:23)
[2023-04-24] MEDS: Atorvastatin Calcium 40 MG TABLET PO (22:24)
[2023-04-24] MEDS: traZODone HCL 50 MG TABLET PO (22:24)
[2023-04-24] MEDS: Sennosides 8.6 MG TABLET 17.2 MG PO (22:24)
[2023-04-25 03:10] VITALS: BP 113/56; PULSE 71; RESP 19; TEMP 36.4; O2SAT 95
[2023-04-25] MEDS: Omeprazole 20 MG CAPSULE.DR PO (06:35)
[2023-04-25 07:05] LABS: Glucose, Whole Blood 107 mg/dL (60-115)
[2023-04-25 07:10] VITALS: BP 107/62; PULSE 67; RESP 18; TEMP 36.1; O2SAT 94
[2023-04-25] MEDS: Fluticasone/Umeclidinium/Vilanterol 200/62.5/25 BLST.W.DEV 1 PUFF INHALE (07:51)
[2023-04-25 07:52] VITALS: PULSE 62; RESP 18; O2SAT 93
[2023-04-25] MEDS: Amoxicillin/Potassium Clav 4,000 MG/50 ML SUSP.RECON 875 MG PO ×2 (08:52→20:36)
[2023-04-25] MEDS: Clopidogrel Bisulfate 75 MG TABLET PO (08:53)
[2023-04-25] MEDS: Folic Acid 1 MG TABLET PO (08:53)
[2023-04-25] MEDS: Gabapentin 300 MG CAPSULE PO ×3 (08:54→20:36)
[2023-04-25] MEDS: carvediloL 3.125 MG TABLET PO ×2 (08:54→20:36)
[2023-04-25] MEDS: QUEtiapine Fumarate 100 MG TABLET PO ×3 (08:54→20:36)
[2023-04-25] MEDS: Acetaminophen 325 MG TABLET 975 MG PO ×2 (08:54→20:35)
[2023-04-25] MEDS: Furosemide 40 MG TABLET PO (08:54)
[2023-04-25] MEDS: Aspirin Enteric Coated 81 MG TABLET.DR PO (08:54)
[2023-04-25] MEDS: Sertraline HCL 100 MG TABLET PO (09:21)
[2023-04-25 10:58] LABS: Glucose, Whole Blood 153 mg/dL (60-115)
[2023-04-25] MEDS: Insulin Lispro 100 UNIT/ML 3 ML VIAL SUBCUT (11:22)
--- NOTE | 2023-04-25 13:40 | P.PNIM_ITS ---
Subjective Subjective Date of Service: 04/25/23 Interval History: back abcess Review of Systems ate breakfast No fever or chills Physical Exam 2 Vital Signs: Vital Signs: Last Vital Signs Temp 97.0 F 04/25/23 07:10 Pulse 62 04/25/23 07:52 Resp 18 04/25/23 07:52 BP 107/62 04/25/23 07:10 Pulse Ox 94 04/25/23 07:10 O2 Del Method Nasal Cannula 04/25/23 07:10 O2 Flow Rate 3 04/25/23 07:10 Oxygen Flow Rate 3 03/15/23 18:32 BMI result Body Mass Index 44.3 Appearance: awake,not in distress.? cvs: rrr, [id number] . res: clear to auscultation ,no rhonchii or wheezing abd: no rebound or guarding ,nt, bs present. ext pulses present , no cyanosis . neuro: axo3 , nonfocal. Objective Data Active Medications Acetaminophen (Acetaminophen 325 Mg Tablet) 975 mg PO TID [facility] Last Admin: 04/25/23 08:54 Dose: 975 mg Documented By: KEYSHA Al Hydroxide/Mg Hydroxide (Magnesium Hydrox/Alum Hydrox 30 Ml Oral.Susp) 30 ml PO Q6H PRN PRN Reason: dyspepsia Albuterol Sulfate (Albuterol Sulfate 90 Mcg 8 Gm Inhaler) 2 puff INHALE Q4H PRN PRN Reason: Wheezing Amoxicillin/Clavulanate Potassium (Amoxicillin/Potassium Clav 4,000 Mg/50 Ml Susp.Recon) 875 mg PO BID [facility] Last Admin: 04/25/23 08:52 Dose: 875 mg Documented By: KEYSHA Aspirin (Aspirin Enteric Coated 81 Mg Tablet.Dr) 81 mg PO DAILY [facility] Last Admin: 04/25/23 08:54 Dose: 81 mg Documented By: KEYSHA Atorvastatin Calcium (Atorvastatin Calcium 40 Mg Tablet) 40 mg PO BEDTIME [facility] Last Admin: 04/24/23 22:24 Dose: 40 mg Documented By: DEBI Carvedilol (Carvedilol 3.125 Mg Tablet) 3.125 mg PO BID [facility]; Protocol Last Admin: 04/25/23 08:54 Dose: 3.125 mg Documented By: KEYSHA Clopidogrel Bisulfate (Clopidogrel Bisulfate 75 Mg Tablet) 75 mg PO DAILY [facility] Last Admin: 04/25/23 08:53 Dose: 75 mg Documented By: KEYSHA Cyanocobalamin (Cyanocobalamin (Vitamin B-12) 1,000 Mcg/Ml Vial) 1,000 mcg IM Q30D [facility] Last Admin: 04/08/23 11:46 Dose: 1,000 mcg Documented By: ASHLEE Dextrose (Dextrose 50 % 25 Gm/50 Ml Syringe) 25 gm IVPUSH Q15M PRN; Protocol PRN Reason: per Hypoglycemia Standing Ord. Docusate Sodium (Docusate Sodium 100 Mg Capsule) 100 mg PO BID PRN PRN Reason: Constipation Enoxaparin Sodium (Enoxaparin Sodium 40 Mg/0.4 Ml Syringe) 40 mg SUBCUT Q24H [facility] Last Admin: 04/24/23 22:23 Dose: 40 mg Documented By: DEBI Fluticasone/Umeclidinium/Vilanterol (Fluticasone/Umeclidinium/Vilanterol 200/62.5/25 Blst.W.Dev) 1 puff INHALE RDAILY [facility] Last Admin: 04/25/23 07:51 Dose: 1 puff Documented By: PERLA Folic Acid (Folic Acid 1 Mg Tablet) 1 mg PO DAILY [facility] Last Admin: 04/25/23 08:53 Dose: 1 mg Documented By: KEYSHA Furosemide (Furosemide 40 Mg Tablet) 40 mg PO DAILY [facility]; Protocol Last Admin: 04/25/23 08:54 Dose: 40 mg Documented By: KEYSHA Gabapentin (Gabapentin 300 Mg Capsule) 300 mg PO TID [facility] Last Admin: 04/25/23 08:54 Dose: 300 mg Documented By: KEYSHA Glucose (Glucose Gel 15 Gm Gel..Gram.) 15 gm PO Q15M PRN; Protocol PRN Reason: per Hypoglycemia Standing Ord. Insulin Human Lispro (Insulin Lispro 100 Unit/Ml 3 Ml Vial) 0 unit SUBCUT QIDACHS [facility]; Protocol Last Admin: 04/25/23 11:22 Dose: 2 unit Documented By: KEYSHA Lactulose (Lactulose 20 Gm/30 Ml Solution) 10 gm PO DAILY PRN PRN Reason: Constipation Melatonin (Melatonin 3 Mg Tablet) 6 mg PO BEDTIME PRN PRN Reason: Insomnia Last Admin: 04/22/23 20:50 Dose: 6 mg Documented By: KATRINA Metformin HCl (Metformin Hcl Er 500 Mg Tab.Er.24h) 500 mg PO DAILY@1800 [facility] Last Admin: 04/24/23 17:25 Dose: 500 mg Documented By: BRENDEN Omeprazole (Omeprazole 20 Mg Capsule.Dr) 20 mg PO DAILY@0630 [facility] Last Admin: 04/25/23 06:35 Dose: 20 mg Documented By: DEBI Ondansetron HCl (Ondansetron Hcl 4 Mg/2 Ml Vial) 4 mg IVPUSH Q8H PRN PRN Reason: Nausea and Vomiting Last Admin: 04/05/23 12:43 Dose: 4 mg Documented By: FERMIN Polyethylene Glycol (Polyethylene Glycol 3350 17 Gm Powd.Pack) 17 gm PO DAILY PRN PRN Reason: Constipation Quetiapine Fumarate (Quetiapine Fumarate 100 Mg Tablet) 100 mg PO TID [facility] Last Admin: 04/25/23 08:54 Dose: 100 mg Documented By: KEYSHA Senna (Sennosides 8.6 Mg Tablet) 17.2 mg PO BEDTIME [facility] Last Admin: 04/24/23 22:24 Dose: 17.2 mg Documented By: DEBI Sertraline HCl (Sertraline Hcl 100 Mg Tablet) 100 mg PO DAILY [facility] Last Admin: 04/25/23 09:21 Dose: 100 mg Documented By: KEYSHA Sodium Chloride (0.9 % Sodium Chloride Flush 3 Ml Syringe) 3 ml IVFLUSH QSHIFT [facility] Last Admin: 04/25/23 07:21 Dose: Not Given Documented By: KEYSHA Non-Admin Reason: No Access Trazodone HCl (Trazodone Hcl 50 Mg Tablet) 50 mg PO BEDTIME [facility] Last Admin: 04/24/23 22:24 Dose: 50 mg Documented By: DEBI Labs 04/22/23 20:26 04/23/23 07:01 Labs: Laboratory Results - last 24 hr 04/24/23 04/24/23 04/25/23 15:38 19:33 06:53 POC Glucose 120 H 118 H 107 04/25/23 10:45 POC Glucose 153 H Microbiology Microbiology Results: Microbiology 04/23/23 10:40 Gram Stain - Final Back Routine Culture - Preliminary No growth to date. Assessment and Plan (1) Back abscess: Status: Acute Plan 72-year-old male with a PMH significant for?CAD, ovw-mabhyul-jlcgcyndw diabetes type 2, who initially presented presents to the ED on 03/15/[facility]23 from [facility] after reportedly having hallucinations and being combative with staff. Pt was placed in physician observation in the ED until he became hypoxic and tested positive for COVID admitted to the medical floor for treatment and further evaluation of acute hypoxic respiratory failure in the setting of COVID infection. back lower Lumbar abcess s/p i&d day 2 no fever or chills noleucocytosis started on po augmentin Acute hypoxic respiratory failure in the setting COVID 19 infection -Finished course of dexamethasone and remdesivir -baseline home oxygen 2 L Left mid back discomfort -lipoma -no acute intervention. HTN -acceptable control on current therapies -adjust as indicated Gmg-cieolbj-zpwjdyslt type 2 diabetes -acceptable control on current therapies -lispro correctional scale -adjust as indicated Full Code Lovenox requires continued hospital stay for safe disposition . Quality Stroke Does the patient have a stroke diagnosis?: No VTE Prior VTE?: No VTE Risk Level:: Medical - moderate - high VTE Device Contraindication: Treatment Not Indicated VTE Drug Contraindication: N/A - Med Ordered
--- NOTE | 2023-04-25 14:11 | HO.SKINPHOTO ---
Addendum entered by Russell Gerardo 04/25/23 14:12: Mid back- Post incision and drainage 04/22. Serosangiounous packing removed and packing replaced 04/24. Original Note: Location: Category: Stage: Length: Width: Depth: cm Location: Category: Stage: Length: Width: Depth: cm Location: Category: Stage: Length: Width: Depth: cm Location: Category: Stage: Length: Width: Depth: cm Location: Category: Stage: Length: Width: Depth: cm Location: Category: Stage: Length: Width: Depth: cm
[2023-04-25 15:12] VITALS: BP 106/56; PULSE 66; RESP 20; TEMP 36.7; O2SAT 94
[2023-04-25 16:06] LABS: Glucose, Whole Blood 135 mg/dL (60-115)
[2023-04-25 19:02] VITALS: BP 126/61; PULSE 60; RESP 20; TEMP 36.7; O2SAT 90
[2023-04-25] MEDS: metFORMIN HCl ER 500 MG TAB.ER.24H PO (19:12)
[2023-04-25 19:59] LABS: Glucose, Whole Blood 136 mg/dL (60-115)
[2023-04-25] MEDS: Enoxaparin Sodium 40 MG/0.4 ML SYRINGE SUBCUT (20:35)
[2023-04-25] MEDS: Atorvastatin Calcium 40 MG TABLET PO (20:36)
[2023-04-25] MEDS: traZODone HCL 50 MG TABLET PO (20:36)
[2023-04-25] MEDS: Sennosides 8.6 MG TABLET 17.2 MG PO (20:36)
[2023-04-26 03:54] VITALS: BP 123/57; PULSE 66; RESP 18; TEMP 37.1; O2SAT 95
[2023-04-26] MEDS: Omeprazole 20 MG CAPSULE.DR PO (05:35)
[2023-04-26 07:19] LABS: Glucose, Whole Blood 112 mg/dL (60-115)
[2023-04-26 07:35] VITALS: BP 117/48; PULSE 63; RESP 20; TEMP 36.2; O2SAT 97
[2023-04-26] MEDS: Amoxicillin/Potassium Clav 4,000 MG/50 ML SUSP.RECON 875 MG PO ×2 (09:57→20:22)
[2023-04-26] MEDS: Furosemide 40 MG TABLET PO (09:57)
[2023-04-26] MEDS: Clopidogrel Bisulfate 75 MG TABLET PO (09:57)
[2023-04-26] MEDS: Acetaminophen 325 MG TABLET 975 MG PO ×3 (09:57→20:13)
[2023-04-26] MEDS: Gabapentin 300 MG CAPSULE PO ×3 (09:58→20:14)
[2023-04-26] MEDS: QUEtiapine Fumarate 100 MG TABLET PO ×3 (09:58→20:13)
[2023-04-26] MEDS: Folic Acid 1 MG TABLET PO (09:58)
[2023-04-26] MEDS: Aspirin Enteric Coated 81 MG TABLET.DR PO (09:58)
[2023-04-26] MEDS: carvediloL 3.125 MG TABLET PO ×2 (09:58→20:14)
[2023-04-26] MEDS: Sertraline HCL 100 MG TABLET PO (09:58)
[2023-04-26 11:31] LABS: Glucose, Whole Blood 159 mg/dL (60-115)
[2023-04-26] MEDS: Insulin Lispro 100 UNIT/ML 3 ML VIAL SUBCUT (12:14)
--- NOTE | 2023-04-26 12:30 | MHC.CM.PN ---
Addendum entered by Pepper Phillips 04/26/23 13:33: referral expanded to include CT and [facility] SNFs Original Note: Pt continues to require STR and likely LTC, no accepting SNF's. CM to follow and continue to try and find placement for him.
--- NOTE | 2023-04-26 13:51 | MHC.SL.SWA ---
Speech Pathologist Impression: Risk of aspiration, oropharyngeal dysphagia Risk of Aspiration Due to: Reduced Cognition Dysphasia Diet Status: Recommend continue on Chopped/Advanced diet (NDD3) to assure softer foods that a pre-cut, thin liquids, and pills whole with liquid. Patient to be permitted soft sandwiches (i.e. tuna, egg salad, chicken salad, pb&j)-Kitchen staff and nursing notified. Patient requires 1-1 assistance at all meals. Liquid Consistency and Strategies for Safe Swallow: Liquid Intake Recommendation: Thin Liquid Intake Strategies: Small Sips Solid Food Consistency: Dietary Recommendations: Chopped/Advanced (NDD3) Additional Modifications to Solid Foods: Soft sandwiches and muffins ok with nursing or CREDENTIALER supervision Oral Medication Intake: Whole with Liquid Please contact the pharmacy regarding appropriate crushable or liquid drug formulations that are available whenever modified delivery is recommended. Compensatory Strategies and Precautions to be Taken for Safe Swallow: Sitting Upright (90 deg) Double Swallow Small Bites and Sips Alternate Liquids/Solids Rate of Ingestion Change Oral Check Avoid Specific Foods Supervision While Eating and Drinking for Safe Swallow: Total Assistance (1:1) Foods to Avoid: Dry, tough to chew, sticky foods, large pieces of uncut meat. Swallowing Recommended Treatments: Compens. Strategy Educat. Recommendation for Speech: Inpatient Speech Therapy Comment: 1:1 assistance feeding Frequency/Duration: M-F during hospitalization Date Range for Service Req: Timeline to reassess: Track Announcer Clinican/Clinical Fellow: No Supervisory Statement: I have reviewed and agree with the student/clinical fellow's documentation: N/A Speech Language Pathologist: Peace Shepherd M.A., CCC-CREDENTIALER
[2023-04-26 14:18] VITALS: O2SAT 87
[2023-04-26 15:17] VITALS: BP 139/58; PULSE 63; RESP 20; TEMP 36.1; O2SAT 92
[2023-04-26 15:28] LABS: Glucose, Whole Blood 119 mg/dL (60-115)
--- NOTE | 2023-04-26 16:32 | P.PNIM_ITS ---
Subjective Subjective Date of Service: 04/26/23 Interval History: back abcess Review of Systems no new c/o, Seen by speech who felt he is not ready for upgrade of diet. No fever or chills Physical Exam 2 Vital Signs: Vital Signs: Last Vital Signs Temp 97 F 04/26/23 15:17 Pulse 63 04/26/23 15:17 Resp 20 04/26/23 15:17 BP 139/58 L 04/26/23 15:17 Pulse Ox 92 04/26/23 15:17 O2 Del Method Nasal Cannula 04/26/23 15:17 O2 Flow Rate 2 04/26/23 15:17 Oxygen Flow Rate 3 03/15/23 18:32 BMI result Body Mass Index 44.3 Appearance: awake,not in distress.? cvs: [id number], [id number] . res: clear to auscultation ,no rhonchii or wheezing abd: no rebound or guarding ,nt, bs present. ext pulses present , no cyanosis . neuro: axo3 , nonfocal. Objective Data Active Medications Acetaminophen (Acetaminophen 325 Mg Tablet) 975 mg PO TID [facility] Last Admin: 04/26/23 15:55 Dose: 975 mg Documented By: KRISTY Al Hydroxide/Mg Hydroxide (Magnesium Hydrox/Alum Hydrox 30 Ml Oral.Susp) 30 ml PO Q6H PRN PRN Reason: dyspepsia Albuterol Sulfate (Albuterol Sulfate 90 Mcg 8 Gm Inhaler) 2 puff INHALE Q4H PRN PRN Reason: Wheezing Amoxicillin/Clavulanate Potassium (Amoxicillin/Potassium Clav 4,000 Mg/50 Ml Susp.Recon) 875 mg PO BID [facility] Last Admin: 04/26/23 09:57 Dose: 875 mg Documented By: KRISTY Aspirin (Aspirin Enteric Coated 81 Mg Tablet.) 81 mg PO DAILY [facility] Last Admin: 04/26/23 09:58 Dose: 81 mg Documented By: KRISTY Atorvastatin Calcium (Atorvastatin Calcium 40 Mg Tablet) 40 mg PO BEDTIME [facility] Last Admin: 04/25/23 20:36 Dose: 40 mg Documented By: IBETH Carvedilol (Carvedilol 3.125 Mg Tablet) 3.125 mg PO BID [facility]; Protocol Last Admin: 04/26/23 09:58 Dose: 3.125 mg Documented By: KRISTY Clopidogrel Bisulfate (Clopidogrel Bisulfate 75 Mg Tablet) 75 mg PO DAILY [facility] Last Admin: 04/26/23 09:57 Dose: 75 mg Documented By: KRISTY Cyanocobalamin (Cyanocobalamin (Vitamin B-12) 1,000 Mcg/Ml Vial) 1,000 mcg IM Q30D [facility] Last Admin: 04/08/23 11:46 Dose: 1,000 mcg Documented By: CHIRAGARLeobardo Dextrose (Dextrose 50 % 25 Gm/50 Ml Syringe) 25 gm IVPUSH Q15M PRN; Protocol PRN Reason: per Hypoglycemia Standing Ord. Docusate Sodium (Docusate Sodium 100 Mg Capsule) 100 mg PO BID PRN PRN Reason: Constipation Enoxaparin Sodium (Enoxaparin Sodium 40 Mg/0.4 Ml Syringe) 40 mg SUBCUT Q24H [facility] Last Admin: 04/25/23 20:35 Dose: 40 mg Documented By: IBETH Fluticasone/Umeclidinium/Vilanterol (Fluticasone/Umeclidinium/Vilanterol 200/62.5/25 Blst.W.Dev) 1 puff INHALE RDAILY [facility] Last Admin: 04/26/23 07:36 Dose: Not Given Documented By: JASSI Non-Admin Reason: Patient Asleep Folic Acid (Folic Acid 1 Mg Tablet) 1 mg PO DAILY [facility] Last Admin: 04/26/23 09:58 Dose: 1 mg Documented By: KRISTY Furosemide (Furosemide 40 Mg Tablet) 40 mg PO DAILY [facility]; Protocol Last Admin: 04/26/23 09:57 Dose: 40 mg Documented By: KRISTY Gabapentin (Gabapentin 300 Mg Capsule) 300 mg PO TID [facility] Last Admin: 04/26/23 15:55 Dose: 300 mg Documented By: KRISTY Glucose (Glucose Gel 15 Gm Gel..Gram.) 15 gm PO Q15M PRN; Protocol PRN Reason: per Hypoglycemia Standing Ord. Insulin Human Lispro (Insulin Lispro 100 Unit/Ml 3 Ml Vial) 0 unit SUBCUT QIDACHS [facility]; Protocol Last Admin: 04/26/23 15:55 Dose: Not Given Documented By: KRISTY Non-Admin Reason: poc= 119 Lactulose (Lactulose 20 Gm/30 Ml Solution) 10 gm PO DAILY PRN PRN Reason: Constipation Melatonin (Melatonin 3 Mg Tablet) 6 mg PO BEDTIME PRN PRN Reason: Insomnia Last Admin: 04/22/23 20:50 Dose: 6 mg Documented By: KATRINA Metformin HCl (Metformin Hcl Er 500 Mg Tab.Er.24h) 500 mg PO DAILY@1800 [facility] Last Admin: 04/25/23 19:12 Dose: 500 mg Documented By: IBETH Omeprazole (Omeprazole 20 Mg Capsule.Dr) 20 mg PO DAILY@0630 [facility] Last Admin: 04/26/23 05:35 Dose: 20 mg Documented By: JACKIE Ondansetron HCl (Ondansetron Hcl 4 Mg/2 Ml Vial) 4 mg IVPUSH Q8H PRN PRN Reason: Nausea and Vomiting Last Admin: 04/05/23 12:43 Dose: 4 mg Documented By: FERMIN Polyethylene Glycol (Polyethylene Glycol 3350 17 Gm Powd.Pack) 17 gm PO DAILY PRN PRN Reason: Constipation Quetiapine Fumarate (Quetiapine Fumarate 100 Mg Tablet) 100 mg PO TID [facility] Last Admin: 04/26/23 15:55 Dose: 100 mg Documented By: KRISTY Senna (Sennosides 8.6 Mg Tablet) 17.2 mg PO BEDTIME [facility] Last Admin: 04/25/23 20:36 Dose: 17.2 mg Documented By: IBETH Sertraline HCl (Sertraline Hcl 100 Mg Tablet) 100 mg PO DAILY [facility] Last Admin: 04/26/23 09:58 Dose: 100 mg Documented By: KRISTY Sodium Chloride (0.9 % Sodium Chloride Flush 3 Ml Syringe) 3 ml IVFLUSH QSHIFT [facility] Last Admin: 04/26/23 15:54 Dose: Not Given Documented By: KRISTY Non-Admin Reason: No Access Trazodone HCl (Trazodone Hcl 50 Mg Tablet) 50 mg PO BEDTIME [facility] Last Admin: 04/25/23 20:36 Dose: 50 mg Documented By: IBETH Labs 04/22/23 20:26 04/23/23 07:01 Labs: Laboratory Results - last 24 hr 04/25/23 04/26/23 04/26/23 19:51 07:09 11:21 POC Glucose 136 H 112 159 H 04/26/23 15:20 POC Glucose 119 H Microbiology Microbiology Results: Microbiology 04/23/23 10:40 Gram Stain - Final Back Routine Culture - Final Assessment and Plan (1) Back abscess: Status: Acute Plan 72-year-old male with a PMH significant for?CAD, qnc-hbmflag-eaesxlbup diabetes type 2, who initially presented presents to the ED on 03/15/2023 from SNF after reportedly having hallucinations and being combative with staff. Pt was placed in physician observation in the ED until he became hypoxic and tested positive for COVID admitted to the medical floor for treatment and further evaluation of acute hypoxic respiratory failure in the setting of COVID infection. back lower Lumbar abcess s/p i&d day 2 no fever or chills no leucocytosis started on po augmentin(started on 04/22) consider surgery follow up before discharge . Acute hypoxic respiratory failure in the setting COVID 19 infection -Finished course of dexamethasone and remdesivir -baseline home oxygen 2 L Left mid back discomfort -lipoma -no acute intervention. HTN -acceptable control on current therapies -adjust as indicated Rze-gjjlzmk-abxhoiiau type 2 diabetes -acceptable control on current therapies -lispro correctional scale -adjust as indicated Full Code Lovenox requires continued hospital stay for safe disposition . Quality Stroke Does the patient have a stroke diagnosis?: No VTE Prior VTE?: No VTE Risk Level:: Medical - moderate - high VTE Device Contraindication: Treatment Not Indicated VTE Drug Contraindication: N/A - Med Ordered
[2023-04-26] MEDS: metFORMIN HCl ER 500 MG TAB.ER.24H PO (17:07)
[2023-04-26 19:20] VITALS: BP 118/65; PULSE 65; RESP 18; TEMP 36.2; O2SAT 92
[2023-04-26 19:59] LABS: Glucose, Whole Blood 129 mg/dL (60-115)
[2023-04-26] MEDS: Sennosides 8.6 MG TABLET 17.2 MG PO (20:13)
[2023-04-26] MEDS: Atorvastatin Calcium 40 MG TABLET PO (20:13)
[2023-04-26] MEDS: Enoxaparin Sodium 40 MG/0.4 ML SYRINGE SUBCUT (20:14)
[2023-04-26] MEDS: traZODone HCL 50 MG TABLET PO (20:14)
[2023-04-27 03:30] VITALS: BP 124/58; PULSE 56; RESP 18; TEMP 36; O2SAT 94
[2023-04-27] MEDS: Omeprazole 20 MG CAPSULE.DR PO (05:43)
[2023-04-27 07:36] VITALS: BP 113/49; PULSE 57; RESP 20; TEMP 36.1; O2SAT 97
[2023-04-27 07:48] LABS: Glucose, Whole Blood 92 mg/dL (60-115)
[2023-04-27] MEDS: Fluticasone/Umeclidinium/Vilanterol 200/62.5/25 BLST.W.DEV 1 PUFF INHALE (08:11)
[2023-04-27 08:13] VITALS: PULSE 64; RESP 15; O2SAT 94
--- NOTE | 2023-04-27 10:25 | P.PNIM_ITS ---
Subjective Subjective Date of Service: 04/27/23 Interval History: f/u on need for placement, no new issues Physical Exam 2 Vital Signs: Vital Signs: Last Vital Signs Temp 97.0 F 04/27/23 07:36 Pulse 64 04/27/23 08:13 Resp 15 04/27/23 08:13 BP 113/49 L 04/27/23 07:36 Pulse Ox 97 04/27/23 07:36 O2 Del Method Nasal Cannula 04/27/23 07:36 O2 Flow Rate 2 04/27/23 07:36 Oxygen Flow Rate 3 03/15/23 18:32 BMI result Body Mass Index 44.3 Appearance: awake,not in distress.? cvs: rrr, [id number] . res: clear to auscultation ,no rhonchii or wheezing abd: no rebound or guarding ,nt, bs present. ext pulses present , no cyanosis . neuro: axo3 , nonfocal. Objective Data Active Medications Acetaminophen (Acetaminophen 325 Mg Tablet) 975 mg PO TID [facility] Last Admin: 04/26/23 20:13 Dose: 975 mg Documented By: JEANNIE Al Hydroxide/Mg Hydroxide (Magnesium Hydrox/Alum Hydrox 30 Ml Oral.Susp) 30 ml PO Q6H PRN PRN Reason: dyspepsia Albuterol Sulfate (Albuterol Sulfate 90 Mcg 8 Gm Inhaler) 2 puff INHALE Q4H PRN PRN Reason: Wheezing Amoxicillin/Clavulanate Potassium (Amoxicillin/Potassium Clav 4,000 Mg/50 Ml Susp.Recon) 875 mg PO BID [facility] Last Admin: 04/26/23 20:22 Dose: 875 mg Documented By: JEANNIE Aspirin (Aspirin Enteric Coated 81 Mg Tablet.) 81 mg PO DAILY [facility] Last Admin: 04/26/23 09:58 Dose: 81 mg Documented By: KRISTY Atorvastatin Calcium (Atorvastatin Calcium 40 Mg Tablet) 40 mg PO BEDTIME [facility] Last Admin: 04/26/23 20:13 Dose: 40 mg Documented By: JEANNIE Carvedilol (Carvedilol 3.125 Mg Tablet) 3.125 mg PO BID [facility]; Protocol Last Admin: 04/26/23 20:14 Dose: 3.125 mg Documented By: JEANNIE Clopidogrel Bisulfate (Clopidogrel Bisulfate 75 Mg Tablet) 75 mg PO DAILY [facility] Last Admin: 04/26/23 09:57 Dose: 75 mg Documented By: KRISTY Cyanocobalamin (Cyanocobalamin (Vitamin B-12) 1,000 Mcg/Ml Vial) 1,000 mcg IM Q30D [facility] Last Admin: 04/08/23 11:46 Dose: 1,000 mcg Documented By: ASHLEE Dextrose (Dextrose 50 % 25 Gm/50 Ml Syringe) 25 gm IVPUSH Q15M PRN; Protocol PRN Reason: per Hypoglycemia Standing Ord. Docusate Sodium (Docusate Sodium 100 Mg Capsule) 100 mg PO BID PRN PRN Reason: Constipation Enoxaparin Sodium (Enoxaparin Sodium 40 Mg/0.4 Ml Syringe) 40 mg SUBCUT Q24H [facility] Last Admin: 04/26/23 20:14 Dose: 40 mg Documented By: JEANNIE Fluticasone/Umeclidinium/Vilanterol (Fluticasone/Umeclidinium/Vilanterol 200/62.5/25 Blst.W.Dev) 1 puff INHALE RDAILY [facility] Last Admin: 04/27/23 08:11 Dose: 1 puff Documented By: PERLA Folic Acid (Folic Acid 1 Mg Tablet) 1 mg PO DAILY [facility] Last Admin: 04/26/23 09:58 Dose: 1 mg Documented By: KRISTY Furosemide (Furosemide 40 Mg Tablet) 40 mg PO DAILY [facility]; Protocol Last Admin: 04/26/23 09:57 Dose: 40 mg Documented By: KRISTY Gabapentin (Gabapentin 300 Mg Capsule) 300 mg PO TID [facility] Last Admin: 04/26/23 20:14 Dose: 300 mg Documented By: JEANNIE Glucose (Glucose Gel 15 Gm Gel..Gram.) 15 gm PO Q15M PRN; Protocol PRN Reason: per Hypoglycemia Standing Ord. Insulin Human Lispro (Insulin Lispro 100 Unit/Ml 3 Ml Vial) 0 unit SUBCUT QIDACHS [facility]; Protocol Last Admin: 04/27/23 09:12 Dose: Not Given Documented By: CHIRAG Non-Admin Reason: No Insulin Coverage Lactulose (Lactulose 20 Gm/30 Ml Solution) 10 gm PO DAILY PRN PRN Reason: Constipation Melatonin (Melatonin 3 Mg Tablet) 6 mg PO BEDTIME PRN PRN Reason: Insomnia Last Admin: 04/22/23 20:50 Dose: 6 mg Documented By: KATRINA Metformin HCl (Metformin Hcl Er 500 Mg Tab.Er.24h) 500 mg PO DAILY@1800 [facility] Last Admin: 04/26/23 17:07 Dose: 500 mg Documented By: KRISTY Omeprazole (Omeprazole 20 Mg Capsule.Dr) 20 mg PO DAILY@0630 [facility] Last Admin: 04/27/23 05:43 Dose: 20 mg Documented By: JEANNIE Ondansetron HCl (Ondansetron Hcl 4 Mg/2 Ml Vial) 4 mg IVPUSH Q8H PRN PRN Reason: Nausea and Vomiting Last Admin: 04/05/23 12:43 Dose: 4 mg Documented By: FERMIN Polyethylene Glycol (Polyethylene Glycol 3350 17 Gm Powd.Pack) 17 gm PO DAILY PRN PRN Reason: Constipation Quetiapine Fumarate (Quetiapine Fumarate 100 Mg Tablet) 100 mg PO TID [facility] Last Admin: 04/26/23 20:13 Dose: 100 mg Documented By: JEANNIE Senna (Sennosides 8.6 Mg Tablet) 17.2 mg PO BEDTIME [facility] Last Admin: 04/26/23 20:13 Dose: 17.2 mg Documented By: JEANNIE Sertraline HCl (Sertraline Hcl 100 Mg Tablet) 100 mg PO DAILY [facility] Last Admin: 04/26/23 09:58 Dose: 100 mg Documented By: KRISTY Sodium Chloride (0.9 % Sodium Chloride Flush 3 Ml Syringe) 3 ml IVFLUSH QSHIFT [facility] Last Admin: 04/26/23 22:34 Dose: Not Given Documented By: JEANNIE Non-Admin Reason: No Access Trazodone HCl (Trazodone Hcl 50 Mg Tablet) 50 mg PO BEDTIME [facility] Last Admin: 04/26/23 20:14 Dose: 50 mg Documented By: JEANNIE Labs 04/22/23 20:26 04/23/23 07:01 Labs: Laboratory Results - last 24 hr 04/26/23 04/26/23 04/26/23 11:21 15:20 19:49 POC Glucose 159 H 119 H 129 H 04/27/23 07:42 POC Glucose 92 Microbiology Microbiology Results: Microbiology 03/08/24 10:40 Gram Stain - Final Back Routine Culture - Final Assessment and Plan (1) Back abscess: Status: Acute Plan 72-year-old male with a PMH significant for?CAD, pcl-iggxdik-rqrdizlke diabetes type 2, who initially presented presents to the ED on 03/15/2023 from SNF after reportedly having hallucinations and being combative with staff. Pt was placed in physician observation in the ED until he became hypoxic and tested positive for COVID admitted to the medical floor for treatment and further evaluation of acute hypoxic respiratory failure in the setting of COVID infection and new awaiting Placement back lower Lumbar abcess s/p I and D, culture growing nothing at this point. Continue Augmentin for 7 days Acute hypoxic respiratory failure in the setting COVID 19 infection, -Finished course of dexamethasone and remdesivir -baseline home oxygen 2 L Left mid back discomfort -lipoma -no acute intervention. HTN--continue coreg, lasix morbid obesity weight loss adivsed Bxt-jzvticp-eejooolez type 2 diabetes -acceptable control on current therapies -continue metformin -lispro correctional scale -adjust as indicated Full Code Lovenox requires continued hospital stay for safe disposition . Quality Stroke Does the patient have a stroke diagnosis?: No VTE Prior VTE?: No VTE Risk Level:: Medical - moderate - high VTE Device Contraindication: Treatment Not Indicated VTE Drug Contraindication: N/A - Med Ordered
[2023-04-27] MEDS: carvediloL 3.125 MG TABLET PO ×2 (10:38→21:27)
[2023-04-27] MEDS: Clopidogrel Bisulfate 75 MG TABLET PO (10:39)
[2023-04-27] MEDS: Sertraline HCL 100 MG TABLET PO (10:39)
[2023-04-27] MEDS: Aspirin Enteric Coated 81 MG TABLET.DR PO (10:39)
[2023-04-27] MEDS: Acetaminophen 325 MG TABLET 975 MG PO ×3 (10:39→21:26)
[2023-04-27] MEDS: Folic Acid 1 MG TABLET PO (10:39)
[2023-04-27] MEDS: Furosemide 40 MG TABLET PO (10:39)
[2023-04-27] MEDS: Gabapentin 300 MG CAPSULE PO ×3 (10:39→21:27)
[2023-04-27] MEDS: Amoxicillin/Potassium Clav 4,000 MG/50 ML SUSP.RECON 875 MG PO ×2 (10:47→21:26)
[2023-04-27 12:10] LABS: Glucose, Whole Blood 128 mg/dL (60-115)
--- NOTE | 2023-04-27 14:26 | MHC.CM.PN ---
CM contacted daughter, Deirdre / HCP to recommend that she complete application for the [facility]. Deirdre said she will call there and put in an application.
[2023-04-27] MEDS: QUEtiapine Fumarate 100 MG TABLET PO ×2 (14:43→21:27)
[2023-04-27 15:50] VITALS: BP 112/74; PULSE 65; RESP 18; TEMP 37; O2SAT 89
[2023-04-27 16:58] LABS: Glucose, Whole Blood 114 mg/dL (60-115)
[2023-04-27] MEDS: metFORMIN HCl ER 500 MG TAB.ER.24H PO (17:28)
[2023-04-27 19:46] VITALS: BP 105/55; PULSE 60; RESP 18; TEMP 36.6; O2SAT 88
[2023-04-27 20:01] LABS: Glucose, Whole Blood 136 mg/dL (60-115)
[2023-04-27 21:06] VITALS: O2SAT 90
[2023-04-27] MEDS: Atorvastatin Calcium 40 MG TABLET PO (21:27)
[2023-04-27] MEDS: Enoxaparin Sodium 40 MG/0.4 ML SYRINGE SUBCUT (21:27)
[2023-04-27] MEDS: traZODone HCL 50 MG TABLET PO (21:27)
[2023-04-27] MEDS: Sennosides 8.6 MG TABLET 17.2 MG PO (21:28)
[2023-04-28 03:13] VITALS: BP 146/65; PULSE 82; RESP 18; TEMP 36.6; O2SAT 94
[2023-04-28] MEDS: Omeprazole 20 MG CAPSULE.DR PO (05:44)
[2023-04-28 06:58] VITALS: BP 124/57; PULSE 70; RESP 20; TEMP 37.1; O2SAT 97
[2023-04-28 07:05] LABS: Glucose, Whole Blood 97 mg/dL (60-115)
[2023-04-28] MEDS: Fluticasone/Umeclidinium/Vilanterol 200/62.5/25 BLST.W.DEV 1 PUFF INHALE (07:56)
[2023-04-28] MEDS: Furosemide 40 MG TABLET PO (09:32)
[2023-04-28] MEDS: QUEtiapine Fumarate 100 MG TABLET PO ×2 (09:33→21:57)
[2023-04-28] MEDS: Acetaminophen 325 MG TABLET 975 MG PO ×2 (09:33→21:57)
[2023-04-28] MEDS: Clopidogrel Bisulfate 75 MG TABLET PO (09:33)
[2023-04-28] MEDS: Folic Acid 1 MG TABLET PO (09:33)
[2023-04-28] MEDS: carvediloL 3.125 MG TABLET PO ×2 (09:33→21:57)
[2023-04-28] MEDS: Sertraline HCL 100 MG TABLET PO (09:33)
[2023-04-28] MEDS: Aspirin Enteric Coated 81 MG TABLET.DR PO (09:33)
[2023-04-28] MEDS: Gabapentin 300 MG CAPSULE PO ×3 (09:33→21:57)
[2023-04-28 09:48] VITALS: PULSE 70; RESP 20
[2023-04-28] MEDS: Amoxicillin/Potassium Clav 4,000 MG/50 ML SUSP.RECON 875 MG PO ×2 (11:13→22:02)
--- NOTE | 2023-04-28 11:25 | P.PNIM_ITS ---
Subjective Subjective Date of Service: 04/28/23 Interval History: f/u on need for placement, no new active issues, reting comfortably Physical Exam 2 Vital Signs: Vital Signs: Last Vital Signs Temp 98.7 F 04/28/23 06:58 Pulse 70 04/28/23 09:48 Resp 20 04/28/23 09:48 BP 124/57 L 04/28/23 06:58 Pulse Ox 97 04/28/23 06:58 O2 Del Method Nasal Cannula 04/28/23 06:58 O2 Flow Rate 2 04/28/23 06:58 Oxygen Flow Rate 3 03/15/23 18:32 BMI result Body Mass Index 44.3 Appearance: awake,not in distress.? cvs: [id number], [id number] . res: clear to auscultation ,no rhonchii or wheezing abd: no rebound or guarding ,nt, bs present. ext pulses present , no cyanosis . neuro: axo3 , nonfocal. Objective Data Active Medications Acetaminophen (Acetaminophen 325 Mg Tablet) 975 mg PO TID [facility] Last Admin: 04/28/23 09:33 Dose: 975 mg Documented By: GLORIA Al Hydroxide/Mg Hydroxide (Magnesium Hydrox/Alum Hydrox 30 Ml Oral.Susp) 30 ml PO Q6H PRN PRN Reason: dyspepsia Albuterol Sulfate (Albuterol Sulfate 90 Mcg 8 Gm Inhaler) 2 puff INHALE Q4H PRN PRN Reason: Wheezing Amoxicillin/Clavulanate Potassium (Amoxicillin/Potassium Clav 4,000 Mg/50 Ml Susp.Recon) 875 mg PO BID [facility] Last Admin: 04/28/23 11:13 Dose: 875 mg Documented By: GLORIA Aspirin (Aspirin Enteric Coated 81 Mg Tablet.) 81 mg PO DAILY [facility] Last Admin: 04/28/23 09:33 Dose: 81 mg Documented By: GLORIA Atorvastatin Calcium (Atorvastatin Calcium 40 Mg Tablet) 40 mg PO BEDTIME [facility] Last Admin: 04/27/23 21:27 Dose: 40 mg Documented By: TAHIR Carvedilol (Carvedilol 3.125 Mg Tablet) 3.125 mg PO BID [facility]; Protocol Last Admin: 04/28/23 09:33 Dose: 3.125 mg Documented By: GLORIA Clopidogrel Bisulfate (Clopidogrel Bisulfate 75 Mg Tablet) 75 mg PO DAILY [facility] Last Admin: 04/28/23 09:33 Dose: 75 mg Documented By: GLORIA Cyanocobalamin (Cyanocobalamin (Vitamin B-12) 1,000 Mcg/Ml Vial) 1,000 mcg IM Q30D [facility] Last Admin: 04/08/23 11:46 Dose: 1,000 mcg Documented By: LESSARLeobardo Dextrose (Dextrose 50 % 25 Gm/50 Ml Syringe) 25 gm IVPUSH Q15M PRN; Protocol PRN Reason: per Hypoglycemia Standing Ord. Docusate Sodium (Docusate Sodium 100 Mg Capsule) 100 mg PO BID PRN PRN Reason: Constipation Enoxaparin Sodium (Enoxaparin Sodium 40 Mg/0.4 Ml Syringe) 40 mg SUBCUT Q24H [facility] Last Admin: 04/27/23 21:27 Dose: 40 mg Documented By: TAHIR Fluticasone/Umeclidinium/Vilanterol (Fluticasone/Umeclidinium/Vilanterol 200/62.5/25 Blst.W.Dev) 1 puff INHALE RDAILY [facility] Last Admin: 04/28/23 07:56 Dose: 1 puff Documented By: RANDAL Folic Acid (Folic Acid 1 Mg Tablet) 1 mg PO DAILY [facility] Last Admin: 04/28/23 09:33 Dose: 1 mg Documented By: GLORIA Furosemide (Furosemide 40 Mg Tablet) 40 mg PO DAILY [facility]; Protocol Last Admin: 04/28/23 09:32 Dose: 40 mg Documented By: GLORIA Gabapentin (Gabapentin 300 Mg Capsule) 300 mg PO TID [facility] Last Admin: 04/28/23 09:33 Dose: 300 mg Documented By: GLORIA Glucose (Glucose Gel 15 Gm Gel..Gram.) 15 gm PO Q15M PRN; Protocol PRN Reason: per Hypoglycemia Standing Ord. Insulin Human Lispro (Insulin Lispro 100 Unit/Ml 3 Ml Vial) 0 unit SUBCUT QIDACHS [facility]; Protocol Last Admin: 04/28/23 08:23 Dose: Not Given Documented By: GLORIA Non-Admin Reason: No Insulin Coverage Lactulose (Lactulose 20 Gm/30 Ml Solution) 10 gm PO DAILY PRN PRN Reason: Constipation Melatonin (Melatonin 3 Mg Tablet) 6 mg PO BEDTIME PRN PRN Reason: Insomnia Last Admin: 04/22/23 20:50 Dose: 6 mg Documented By: KATRINA Metformin HCl (Metformin Hcl Er 500 Mg Tab.Er.24h) 500 mg PO DAILY@1800 [facility] Last Admin: 04/27/23 17:28 Dose: 500 mg Documented By: CHIRAG Omeprazole (Omeprazole 20 Mg Capsule.Dr) 20 mg PO DAILY@0630 [facility] Last Admin: 04/28/23 05:44 Dose: 20 mg Documented By: TAHIR Ondansetron HCl (Ondansetron Hcl 4 Mg/2 Ml Vial) 4 mg IVPUSH Q8H PRN PRN Reason: Nausea and Vomiting Last Admin: 04/05/23 12:43 Dose: 4 mg Documented By: FERMIN Polyethylene Glycol (Polyethylene Glycol 3350 17 Gm Powd.Pack) 17 gm PO DAILY PRN PRN Reason: Constipation Quetiapine Fumarate (Quetiapine Fumarate 100 Mg Tablet) 100 mg PO TID [facility] Last Admin: 04/28/23 09:33 Dose: 100 mg Documented By: GLORIA Senna (Sennosides 8.6 Mg Tablet) 17.2 mg PO BEDTIME [facility] Last Admin: 04/27/23 21:28 Dose: 17.2 mg Documented By: TAHIR Sertraline HCl (Sertraline Hcl 100 Mg Tablet) 100 mg PO DAILY [facility] Last Admin: 04/28/23 09:33 Dose: 100 mg Documented By: GLORIA Sodium Chloride (0.9 % Sodium Chloride Flush 3 Ml Syringe) 3 ml IVFLUSH QSHIFT [facility] Last Admin: 04/28/23 08:23 Dose: Not Given Documented By: GLORIA Non-Admin Reason: No Access Trazodone HCl (Trazodone Hcl 50 Mg Tablet) 50 mg PO BEDTIME [facility] Last Admin: 04/27/23 21:27 Dose: 50 mg Documented By: TAHIR Labs 04/22/23 20:26 04/23/23 07:01 Labs: Laboratory Results - last 24 hr 04/27/23 04/27/23 04/27/23 12:04 16:54 19:49 POC Glucose 128 H 114 136 H 04/28/23 07:01 POC Glucose 97 Assessment and Plan (1) Back abscess: Status: Acute Plan 72-year-old male with a PMH significant for?CAD, era-xdmewon-mkdgxvesc diabetes type 2, who initially presented presents to the ED on 03/15/2023 from SNF after reportedly having hallucinations and being combative with staff. Pt was placed in physician observation in the ED until he became hypoxic and tested positive for COVID admitted to the medical floor for treatment and further evaluation of acute hypoxic respiratory failure in the setting of COVID infection and new awaiting Placement back lower Lumbar abcess s/p I and D, culture growing nothing at this point. Continue Augmentin for 7 days Acute hypoxic respiratory failure in the setting COVID 19 infection, resolved -Finished course of dexamethasone and remdesivir -baseline home oxygen 2 L Left mid back discomfort -lipoma -no acute intervention. HTN--continue coreg, lasix morbid obesity weight loss adivsed Fzx-txngjom-ymvnvlkia type 2 diabetes -acceptable control on current therapies -continue metformin -lispro correctional scale -adjust as indicated Full Code Lovenox requires continued hospital stay for safe disposition . Quality Stroke Does the patient have a stroke diagnosis?: No VTE Prior VTE?: No VTE Risk Level:: Medical - moderate - high VTE Device Contraindication: Treatment Not Indicated VTE Drug Contraindication: N/A - Med Ordered
[2023-04-28 11:37] LABS: Glucose, Whole Blood 127 mg/dL (60-115)
[2023-04-28 15:32] VITALS: BP 140/63; PULSE 60; RESP 21; TEMP 36.3; O2SAT 95
[2023-04-28 15:59] LABS: Glucose, Whole Blood 106 mg/dL (60-115)
[2023-04-28] MEDS: metFORMIN HCl ER 500 MG TAB.ER.24H PO (17:40)
[2023-04-28 19:40] VITALS: BP 138/64; PULSE 63; RESP 21; TEMP 36.3; O2SAT 94
[2023-04-28 20:05] LABS: Glucose, Whole Blood 136 mg/dL (60-115)
[2023-04-28] MEDS: Enoxaparin Sodium 40 MG/0.4 ML SYRINGE SUBCUT (21:56)
[2023-04-28] MEDS: Atorvastatin Calcium 40 MG TABLET PO (21:57)
[2023-04-28] MEDS: Sennosides 8.6 MG TABLET 17.2 MG PO (21:57)
[2023-04-28] MEDS: traZODone HCL 50 MG TABLET PO (22:07)
[2023-04-29 07:20] LABS: Glucose, Whole Blood 90 mg/dL (60-115)
[2023-04-29 07:24] VITALS: BP 127/63; PULSE 65; RESP 22; TEMP 35.8; O2SAT 94
[2023-04-29] MEDS: Fluticasone/Umeclidinium/Vilanterol 200/62.5/25 BLST.W.DEV 1 PUFF INHALE (07:46)
[2023-04-29 07:50] VITALS: PULSE 63; RESP 20; O2SAT 95
--- NOTE | 2023-04-29 10:17 | PC.NURSE ---
This Rn went into the patient room this morning to medicate him with morning medications. Patient stats I am not taking anything this place has to give me. This RN educated patient on the importance of taking medications but patient was insistent on not taking them. He also refused to eat or drink anything and states that he wants everyone out of the room and to be left alone. MD was notified and will continue to encourage taking medications and eating. Call gamboa within reach, all other patients needs met.
[2023-04-29 11:34] LABS: Glucose, Whole Blood 102 mg/dL (60-115)
[2023-04-29 11:48] LABS: Hematocrit 35.6 % (42.0-52.0); Hemoglobin 11.7 g/dl (14.0-18.0); Mean Corpuscular HGB Conc 32.9 g/dl (31.0-36.0); Mean Corpuscular Hemoglobin 33.4 pg (27.0-33.0); Mean Corpuscular Volume 101.7 fL (80.0-98.0); Mean Platelet Volume 8.2 fL (9.4-12.4); Platelet Count 183 X10*3/uL (160-400); Red Cell Distribution Width 15.9 % (11.0-16.0); White Blood Count 6.9 X10*3/uL (4.8-10.8)
--- NOTE | 2023-04-29 11:51 | MHC.CM.PN ---
JASPREET called Genna at [facility] at HCP request to ask about DME and services that can provided to pt if he goes home. Genna reviewed this with her manager infrastructure and met with the family. [facility] came to the conclusion that the patient going home would not be a safe DC. They support continued SNF search and asked that the list of facilities that we have referred to be emailed to them and they will make some calls to see if they can help to get him accepted. List emailed today.
[2023-04-29 12:24] LABS: Anion Gap 13 (12-20); Blood Urea Nitrogen 18 mg/dL (9-16); Calcium 8.9 mg/dL (8.4-10.2); Carbon Dioxide 33 mmol/L (22-29); Chloride 100 mmol/L (96-108); Creatinine Clr Calc Pharmacy 88.2; Estimated Glomerular Filt Rate > 60; Glucose Random 106 mg/dL (60-115); Potassium 4.7 mmol/L (3.3-5.1); Sodium 141 mmol/L (135-145)
--- NOTE | 2023-04-29 12:45 | HO.PM.IMPN ---
Subjective Subjective Date of Service: 04/30/23 Interval History: Patient seems confused today, refusing care, food and thinks he's home Physical Exam Vital Signs: Vital Signs: Last Vital Signs Temp 96.4 F L 04/29/23 07:24 Pulse 63 04/29/23 07:50 Resp 20 04/29/23 07:50 BP 127/63 04/29/23 07:24 Pulse Ox 94 04/29/23 07:24 O2 Del Method Nasal Cannula 04/29/23 07:24 O2 Flow Rate 3 04/29/23 07:24 Oxygen Flow Rate 3 03/15/23 18:32 BMI result Body Mass Index 44.3 Objective Data Active Medications Acetaminophen (Acetaminophen 325 Mg Tablet) 975 mg PO TID [facility] Last Admin: 04/29/23 10:14 Dose: Not Given Documented By: VIRGIE Non-Admin Reason: Patient Refused Al Hydroxide/Mg Hydroxide (Magnesium Hydrox/Alum Hydrox 30 Ml Oral.Susp) 30 ml PO Q6H PRN PRN Reason: dyspepsia Albuterol Sulfate (Albuterol Sulfate 90 Mcg 8 Gm Inhaler) 2 puff INHALE Q4H PRN PRN Reason: Wheezing Amoxicillin/Clavulanate Potassium (Amoxicillin/Potassium Clav 4,000 Mg/50 Ml Susp.Recon) 875 mg PO BID [facility] Last Admin: 04/29/23 10:14 Dose: Not Given Documented By: VIRGIE Non-Admin Reason: Patient Refused Aspirin (Aspirin Enteric Coated 81 Mg Tablet.) 81 mg PO DAILY [facility] Last Admin: 04/29/23 10:14 Dose: Not Given Documented By: VIRGIE Non-Admin Reason: Patient Refused Atorvastatin Calcium (Atorvastatin Calcium 40 Mg Tablet) 40 mg PO BEDTIME [facility] Last Admin: 04/28/23 21:57 Dose: 40 mg Documented By: DEB Carvedilol (Carvedilol 3.125 Mg Tablet) 3.125 mg PO BID [facility]; Protocol Last Admin: 04/29/23 10:14 Dose: Not Given Documented By: VIRGIE Non-Admin Reason: Patient Refused Clopidogrel Bisulfate (Clopidogrel Bisulfate 75 Mg Tablet) 75 mg PO DAILY [facility] Last Admin: 04/29/23 10:14 Dose: Not Given Documented By: VIRGIE Non-Admin Reason: Patient Refused Cyanocobalamin (Cyanocobalamin (Vitamin B-12) 1,000 Mcg/Ml Vial) 1,000 mcg IM Q30D [facility] Last Admin: 04/08/23 11:46 Dose: 1,000 mcg Documented By: ASHLEE Dextrose (Dextrose 50 % 25 Gm/50 Ml Syringe) 25 gm IVPUSH Q15M PRN; Protocol PRN Reason: per Hypoglycemia Standing Ord. Docusate Sodium (Docusate Sodium 100 Mg Capsule) 100 mg PO BID PRN PRN Reason: Constipation Enoxaparin Sodium (Enoxaparin Sodium 40 Mg/0.4 Ml Syringe) 40 mg SUBCUT Q24H [facility] Last Admin: 04/28/23 21:56 Dose: 40 mg Documented By: DEB Fluticasone/Umeclidinium/Vilanterol (Fluticasone/Umeclidinium/Vilanterol 200/62.5/25 Blst.W.Dev) 1 puff INHALE RDAILY [facility] Last Admin: 04/29/23 07:46 Dose: 1 puff Documented By: MAURICE Folic Acid (Folic Acid 1 Mg Tablet) 1 mg PO DAILY [facility] Last Admin: 04/29/23 10:15 Dose: Not Given Documented By: VIRGIE Non-Admin Reason: Patient Refused Furosemide (Furosemide 40 Mg Tablet) 40 mg PO DAILY [facility]; Protocol Last Admin: 04/29/23 10:15 Dose: Not Given Documented By: VIRGIE Non-Admin Reason: Patient Refused Gabapentin (Gabapentin 300 Mg Capsule) 300 mg PO TID [facility] Last Admin: 04/29/23 10:15 Dose: Not Given Documented By: VIRGIE Non-Admin Reason: Patient Refused Glucose (Glucose Gel 15 Gm Gel..Gram.) 15 gm PO Q15M PRN; Protocol PRN Reason: per Hypoglycemia Standing Ord. Insulin Human Lispro (Insulin Lispro 100 Unit/Ml 3 Ml Vial) 0 unit SUBCUT QIDACHS [facility]; Protocol Last Admin: 04/29/23 11:44 Dose: Not Given Documented By: VIRGIE Non-Admin Reason: No Insulin Coverage Lactulose (Lactulose 20 Gm/30 Ml Solution) 10 gm PO DAILY PRN PRN Reason: Constipation Melatonin (Melatonin 3 Mg Tablet) 6 mg PO BEDTIME PRN PRN Reason: Insomnia Last Admin: 04/22/23 20:50 Dose: 6 mg Documented By: KATRINA Metformin HCl (Metformin Hcl Er 500 Mg Tab.Er.24h) 500 mg PO DAILY@1800 [facility] Last Admin: 04/28/23 17:40 Dose: 500 mg Documented By: GLORIA Omeprazole (Omeprazole 20 Mg Capsule.Dr) 20 mg PO DAILY@0630 [facility] Last Admin: 04/29/23 06:19 Dose: Not Given Documented By: DEB Non-Admin Reason: Patient Refused Ondansetron HCl (Ondansetron Hcl 4 Mg/2 Ml Vial) 4 mg IVPUSH Q8H PRN PRN Reason: Nausea and Vomiting Last Admin: 04/05/23 12:43 Dose: 4 mg Documented By: FERMIN Polyethylene Glycol (Polyethylene Glycol 3350 17 Gm Powd.Pack) 17 gm PO DAILY PRN PRN Reason: Constipation Quetiapine Fumarate (Quetiapine Fumarate 100 Mg Tablet) 100 mg PO TID [facility] Last Admin: 04/29/23 10:15 Dose: Not Given Documented By: VIRGIE Non-Admin Reason: Patient Refused Senna (Sennosides 8.6 Mg Tablet) 17.2 mg PO BEDTIME [facility] Last Admin: 04/28/23 21:57 Dose: 17.2 mg Documented By: DEB Sertraline HCl (Sertraline Hcl 100 Mg Tablet) 100 mg PO DAILY [facility] Last Admin: 04/29/23 10:15 Dose: Not Given Documented By: VIRGIE Non-Admin Reason: Patient Refused Sodium Chloride (0.9 % Sodium Chloride Flush 3 Ml Syringe) 3 ml IVFLUSH QSHIFT [facility] Last Admin: 04/29/23 10:13 Dose: Not Given Documented By: VIRGIE Non-Admin Reason: No Access Trazodone HCl (Trazodone Hcl 50 Mg Tablet) 50 mg PO BEDTIME [facility] Last Admin: 04/28/23 22:07 Dose: 50 mg Documented By: DEB Labs 04/29/23 11:37 04/30/23 09:20 Labs: Laboratory Results - last 24 hr 04/28/23 04/28/23 04/29/23 15:56 19:56 07:12 MCV MCH MCHC RDW Plt Count MPV Absolute Nucleated RBC Nucleated RBC % (auto) Anion Gap Estim Creat Clear Calc Estimated GFR POC Glucose 106 136 H 90 Random Glucose Calcium 04/29/23 04/29/23 11:21 11:37 MCV 101.7 H MCH 33.4 H MCHC 32.9 RDW 15.9 Plt Count 183 MPV 8.2 L Absolute Nucleated RBC 0.000 Nucleated RBC % (auto) 0.0 Anion Gap 13 Estim Creat Clear Calc 88.2 Estimated GFR > 60 POC Glucose 102 Random Glucose 106 Calcium 8.9 Assessment and Plan (1) Back abscess: Status: Acute Plan 72-year-old male with a PMH significant for?CAD, [id number] diabetes type 2, who initially presented presents to the ED on 03/15/2023 from SNF after reportedly having hallucinations and being combative with staff. Pt was placed in physician observation in the ED until he became hypoxic and tested positive for COVID admitted to the medical floor for treatment and further evaluation of acute hypoxic respiratory failure in the setting of COVID infection and new awaiting Placement back lower Lumbar abcess s/p I and D, culture growing nothing at this point. Continue Augmentin for 7 days Acute hypoxic respiratory failure in the setting COVID 19 infection, resolved -Finished course of dexamethasone and remdesivir -baseline home oxygen 2 L Left mid back discomfort -lipoma -no acute intervention. HTN--continue coreg, lasix morbid obesity weight loss adivsed Wvv-wsmjhao-hthfhvhmi type 2 diabetes -acceptable control on current therapies -continue metformin -lispro correctional scale -adjust as indicated Change in status, refusing care, uncooperative, routine labs including cbc and bmp ok.. check LFTs, check UA Full Code Lovenox requires continued hospital stay for safe disposition . Quality Stroke Does the patient have a stroke diagnosis?: No VTE Prior VTE?: No VTE Risk Level:: Medical - moderate - high VTE Device Contraindication: Treatment Not Indicated VTE Drug Contraindication: N/A - Med Ordered
--- NOTE | 2023-04-29 12:54 | MHC.SLORD ---
Speech Language Pathology Order Status: Patient sleeping or very lethargic on two visits today. Did not eat breakfast, took a few bites of lunch, per [employer], then refused. BILINGUAL OPERATOR attempted to wake patient to see if he wanted more, patient did not wake to prompting. BILINGUAL OPERATOR will follow.
[2023-04-29 13:56] LABS: Alanine Aminotransferase 27 U/L (0-40); Albumin Level 2.9 g/dL (3.5-5.0); Alkaline Phosphatase 127 U/L (39-117); Aspartate Amino Transferase 32 U/L (5-37); Bilirubin Direct 0.2 mg/dL (0.0-0.5); Bilirubin Total 0.4 mg/dL (0.0-1.0); Total Protein 5.7 g/dL (6.5-8.0)
[2023-04-29] MEDS: Gabapentin 300 MG CAPSULE PO ×2 (14:37→20:55)
[2023-04-29] MEDS: Acetaminophen 325 MG TABLET 975 MG PO ×2 (14:37→20:55)
[2023-04-29] MEDS: QUEtiapine Fumarate 100 MG TABLET PO ×2 (14:37→20:55)
[2023-04-29 15:51] VITALS: BP 115/56; PULSE 73; RESP 22; TEMP 36.2; O2SAT 96
[2023-04-29 16:00] LABS: Glucose, Whole Blood 140 mg/dL (60-115)
[2023-04-29] MEDS: metFORMIN HCl ER 500 MG TAB.ER.24H PO (17:46)
[2023-04-29 20:00] VITALS: BP 95/56; PULSE 77; RESP 17; TEMP 36.3; O2SAT 96
[2023-04-29 20:13] LABS: Glucose, Whole Blood 128 mg/dL (60-115)
[2023-04-29] MEDS: Enoxaparin Sodium 40 MG/0.4 ML SYRINGE SUBCUT (20:54)
[2023-04-29] MEDS: Sennosides 8.6 MG TABLET 17.2 MG PO (20:54)
[2023-04-29] MEDS: Atorvastatin Calcium 40 MG TABLET PO (20:55)
[2023-04-29] MEDS: carvediloL 3.125 MG TABLET PO (20:55)
[2023-04-29] MEDS: traZODone HCL 50 MG TABLET PO (20:55)
[2023-04-29] MEDS: Amoxicillin/Potassium Clav 4,000 MG/50 ML SUSP.RECON 875 MG PO (21:03)
[2023-04-30 04:00] VITALS: BP 133/65; PULSE 68; TEMP 37.1; O2SAT 98
[2023-04-30] MEDS: Fluticasone/Umeclidinium/Vilanterol 200/62.5/25 BLST.W.DEV 1 PUFF INHALE (07:45)
[2023-04-30 07:53] LABS: Glucose, Whole Blood 90 mg/dL (60-115)
[2023-04-30 08:00] VITALS: BP 113/49; PULSE 67; RESP 16; TEMP 36.4; O2SAT 97
[2023-04-30] MEDS: Aspirin Enteric Coated 81 MG TABLET.DR PO (09:43)
[2023-04-30] MEDS: Clopidogrel Bisulfate 75 MG TABLET PO (09:43)
[2023-04-30] MEDS: Gabapentin 300 MG CAPSULE PO (09:43)
[2023-04-30] MEDS: Sertraline HCL 100 MG TABLET PO (09:43)
[2023-04-30] MEDS: carvediloL 3.125 MG TABLET PO ×2 (09:43→20:18)
[2023-04-30] MEDS: QUEtiapine Fumarate 100 MG TABLET PO ×2 (09:45→20:18)
[2023-04-30] MEDS: Folic Acid 1 MG TABLET PO (09:45)
[2023-04-30] MEDS: Acetaminophen 325 MG TABLET 975 MG PO ×2 (09:45→20:18)
[2023-04-30] MEDS: Furosemide 40 MG TABLET PO (09:45)
[2023-04-30 09:58] LABS: Creatinine Clr Calc Pharmacy 76.7; Estimated Glomerular Filt Rate 54
[2023-04-30] MEDS: Amoxicillin/Potassium Clav 4,000 MG/50 ML SUSP.RECON 875 MG PO ×2 (10:01→20:19)
--- NOTE | 2023-04-30 11:10 | HO.PM.IMPN ---
Subjective Subjective Date of Service: 04/30/23 Interval History: He seems to be back at his baseline, cooperative and vitals ok Physical Exam Vital Signs: Vital Signs: Last Vital Signs Temp 97.6 F 04/30/23 08:00 Pulse 67 04/30/23 08:00 Resp 16 04/30/23 08:00 BP 113/49 L 04/30/23 08:00 Pulse Ox 97 04/30/23 08:00 O2 Del Method Nasal Cannula 04/30/23 08:00 O2 Flow Rate 3 04/30/23 08:00 Oxygen Flow Rate 3 03/15/23 18:32 BMI result Body Mass Index 44.3 Appearance: awake,not in distress.? cvs: rrr, [id number] . res: clear to auscultation ,no rhonchii or wheezing abd: no rebound or guarding ,nt, bs present. ext pulses present , no cyanosis . neuro: axo3 , nonfocal. Objective Data Active Medications Acetaminophen (Acetaminophen 325 Mg Tablet) 975 mg PO TID [facility] Last Admin: 04/30/23 09:45 Dose: 975 mg Documented By: JOSH Al Hydroxide/Mg Hydroxide (Magnesium Hydrox/Alum Hydrox 30 Ml Oral.Susp) 30 ml PO Q6H PRN PRN Reason: dyspepsia Albuterol Sulfate (Albuterol Sulfate 90 Mcg 8 Gm Inhaler) 2 puff INHALE Q4H PRN PRN Reason: Wheezing Amoxicillin/Clavulanate Potassium (Amoxicillin/Potassium Clav 4,000 Mg/50 Ml Susp.Recon) 875 mg PO BID [facility] Last Admin: 04/30/23 10:01 Dose: 875 mg Documented By: SARIKA Aspirin (Aspirin Enteric Coated 81 Mg Tablet.Dr) 81 mg PO DAILY [facility] Last Admin: 04/30/23 09:43 Dose: 81 mg Documented By: JOSH Atorvastatin Calcium (Atorvastatin Calcium 40 Mg Tablet) 40 mg PO BEDTIME [facility] Last Admin: 04/29/23 20:55 Dose: 40 mg Documented By: DEB Carvedilol (Carvedilol 3.125 Mg Tablet) 3.125 mg PO BID [facility]; Protocol Last Admin: 04/30/23 09:43 Dose: 3.125 mg Documented By: JOSH Clopidogrel Bisulfate (Clopidogrel Bisulfate 75 Mg Tablet) 75 mg PO DAILY [facility] Last Admin: 04/30/23 09:43 Dose: 75 mg Documented By: JOSH Cyanocobalamin (Cyanocobalamin (Vitamin B-12) 1,000 Mcg/Ml Vial) 1,000 mcg IM Q30D [facility] Last Admin: 04/08/23 11:46 Dose: 1,000 mcg Documented By: LESSARLeobardo Dextrose (Dextrose 50 % 25 Gm/50 Ml Syringe) 25 gm IVPUSH Q15M PRN; Protocol PRN Reason: per Hypoglycemia Standing Ord. Docusate Sodium (Docusate Sodium 100 Mg Capsule) 100 mg PO BID PRN PRN Reason: Constipation Enoxaparin Sodium (Enoxaparin Sodium 40 Mg/0.4 Ml Syringe) 40 mg SUBCUT Q24H [facility] Last Admin: 04/29/23 20:54 Dose: 40 mg Documented By: DEB Fluticasone/Umeclidinium/Vilanterol (Fluticasone/Umeclidinium/Vilanterol 200/62.5/25 Blst.W.Dev) 1 puff INHALE RDAILY [facility] Last Admin: 04/30/23 07:45 Dose: 1 puff Documented By: RANDAL Folic Acid (Folic Acid 1 Mg Tablet) 1 mg PO DAILY [facility] Last Admin: 04/30/23 09:45 Dose: 1 mg Documented By: JOSH Furosemide (Furosemide 40 Mg Tablet) 40 mg PO DAILY [facility]; Protocol Last Admin: 04/30/23 09:45 Dose: 40 mg Documented By: JOSH Gabapentin (Gabapentin 300 Mg Capsule) 300 mg PO TID [facility] Last Admin: 04/30/23 09:43 Dose: 300 mg Documented By: JOSH Glucose (Glucose Gel 15 Gm Gel..Gram.) 15 gm PO Q15M PRN; Protocol PRN Reason: per Hypoglycemia Standing Ord. Insulin Human Lispro (Insulin Lispro 100 Unit/Ml 3 Ml Vial) 0 unit SUBCUT QIDACHS [facility]; Protocol Last Admin: 04/30/23 08:28 Dose: Not Given Documented By: CONCEPCIÓN Non-Admin Reason: poc 90 Lactulose (Lactulose 20 Gm/30 Ml Solution) 10 gm PO DAILY PRN PRN Reason: Constipation Melatonin (Melatonin 3 Mg Tablet) 6 mg PO BEDTIME PRN PRN Reason: Insomnia Last Admin: 04/22/23 20:50 Dose: 6 mg Documented By: KATRINA Metformin HCl (Metformin Hcl Er 500 Mg Tab.Er.24h) 500 mg PO DAILY@1800 [facility] Last Admin: 04/29/23 17:46 Dose: 500 mg Documented By: VIRGIE Omeprazole (Omeprazole 20 Mg Capsule.Dr) 20 mg PO DAILY@0630 [facility] Last Admin: 04/30/23 07:50 Dose: Not Given Documented By: DEB Non-Admin Reason: Patient Refused Ondansetron HCl (Ondansetron Hcl 4 Mg/2 Ml Vial) 4 mg IVPUSH Q8H PRN PRN Reason: Nausea and Vomiting Last Admin: 04/05/23 12:43 Dose: 4 mg Documented By: FERMIN Polyethylene Glycol (Polyethylene Glycol 3350 17 Gm Powd.Pack) 17 gm PO DAILY PRN PRN Reason: Constipation Quetiapine Fumarate (Quetiapine Fumarate 100 Mg Tablet) 100 mg PO TID [facility] Last Admin: 04/30/23 09:45 Dose: 100 mg Documented By: JOSH Senna (Sennosides 8.6 Mg Tablet) 17.2 mg PO BEDTIME [facility] Last Admin: 04/29/23 20:54 Dose: 17.2 mg Documented By: DEB Sertraline HCl (Sertraline Hcl 100 Mg Tablet) 100 mg PO DAILY [facility] Last Admin: 04/30/23 09:43 Dose: 100 mg Documented By: JOSH Sodium Chloride (0.9 % Sodium Chloride Flush 3 Ml Syringe) 3 ml IVFLUSH QSHIFT [facility] Last Admin: 04/30/23 09:43 Dose: Not Given Documented By: JOSH Non-Admin Reason: no IV access Trazodone HCl (Trazodone Hcl 50 Mg Tablet) 50 mg PO BEDTIME [facility] Last Admin: 04/29/23 20:55 Dose: 50 mg Documented By: DEB Labs 04/29/23 11:37 04/30/23 09:20 Labs: Laboratory Results - last 24 hr 04/29/23 04/29/23 04/29/23 11:21 11:37 15:55 MCV 101.7 H MCH 33.4 H MCHC 32.9 RDW 15.9 Plt Count 183 MPV 8.2 L Absolute Nucleated RBC 0.000 Nucleated RBC % (auto) 0.0 Anion Gap 13 Estim Creat Clear Calc 88.2 Estimated GFR > 60 POC Glucose 102 140 H Random Glucose 106 Calcium 8.9 Total Bilirubin 0.4 Direct Bilirubin 0.2 AST 32 ALT 27 Alkaline Phosphatase 127 H Total Protein 5.7 L Albumin 2.9 L 04/29/23 04/30/23 04/30/23 19:49 07:49 09:20 MCV MCH MCHC RDW Plt Count MPV Absolute Nucleated RBC Nucleated RBC % (auto) Anion Gap Estim Creat Clear Calc 76.7 Estimated GFR 54 POC Glucose 128 H 90 Random Glucose Calcium Total Bilirubin Direct Bilirubin AST ALT Alkaline Phosphatase Total Protein Albumin Assessment and Plan (1) Back abscess: Status: Acute Plan 72-year-old male with a PMH significant for?CAD, hag-hmfonyb-[id number] diabetes type 2, who initially presented presents to the ED on 03/15/2023 from SNF after reportedly having hallucinations and being combative with staff. Pt was placed in physician observation in the ED until he became hypoxic and tested positive for COVID admitted to the medical floor for treatment and further evaluation of acute hypoxic respiratory failure in the setting of COVID infection and new awaiting Placement back lower Lumbar abcess s/p I and D, culture growing nothing at this point. Continue Augmentin for 7 days Acute hypoxic respiratory failure in the setting COVID 19 infection, resolved -Finished course of dexamethasone and remdesivir -baseline home oxygen 2 L Left mid back discomfort -lipoma -no acute intervention. HTN--continue coreg, lasix morbid obesity weight loss adivsed Eek-suyqcer-zsdvjwvma type 2 diabetes -acceptable control on current therapies -continue metformin -lispro correctional scale -adjust as indicated Change in status, refusing care, uncooperative, routine labs including cbc and bmp ok and he is back at his baseline Full Code Lovenox requires continued hospital stay for safe disposition . Quality Stroke Does the patient have a stroke diagnosis?: No VTE Prior VTE?: No VTE Risk Level:: Medical - moderate - high VTE Device Contraindication: Treatment Not Indicated VTE Drug Contraindication: N/A - Med Ordered
[2023-04-30 12:00] LABS: Glucose, Whole Blood 117 mg/dL (60-115)
--- NOTE | 2023-04-30 12:15 | MHC.SL.SWA ---
Speech Pathologist Impression: Risk of Aspiration Due to: Reduced Cognition None Dysphasia Diet Status: Recommend continue on Chopped/Advanced diet (NDD3) to assure softer foods that a pre-cut, thin liquids, and pills whole with liquid. Patient to be permitted soft sandwiches (i.e. tuna, egg salad, chicken salad, pb&j)-Kitchen staff and nursing notified. Patient requires 1-1 assistance at all meals. Liquid Consistency and Strategies for Safe Swallow: Liquid Intake Recommendation: Thin Liquid Intake Strategies: Small Sips Solid Food Consistency: Dietary Recommendations: Chopped/Advanced (NDD3) Additional Modifications to Solid Foods: Soft sandwiches and muffins ok with nursing or TEST CONSULTANT supervision. Oral Medication Intake: Whole with Liquid Please contact the pharmacy regarding appropriate crushable or liquid drug formulations that are available whenever modified delivery is recommended. Compensatory Strategies and Precautions to be Taken for Safe Swallow: Sitting Upright (90 deg) Double Swallow Small Bites and Sips Alternate Liquids/Solids Rate of Ingestion Change Oral Check Avoid Specific Foods Supervision While Eating and Drinking for Safe Swallow: Total Assistance (1:1) Foods to Avoid: Dry, tough to chew, sticky foods, large pieces of uncut meat. Swallowing Recommended Treatments: Compens. Strategy Educat. Recommendation for Speech: Inpatient Speech Therapy Comment: Patient was seen for trial of sandwich/advanced texture in the late a.m. Patient reportedly has been refusing food and medicine recently. Today he was reclined/sleeping upon TEST CONSULTANT entering room, but woke easily and expressed interest in trying a SB&J. Head of bed was raised so patient was roughly with upper body at 70 degrees while seated in bed, with patient expressing some discomfort with position change. Patient was given a piece of the sandwich, placing it in his hand, with patient bringing it to mouth, initially missing mouth, then putting it in. Patient then munched on the piece of sandwich briefly, then appeared to fall back to sleep, but woke with prompt and began to chew again. Patient took a prolonged period to chew this one piece of sandwich, seeming to lapse to sleep X2 more then waking to prompt. Patient was given sip of liquid to encourage swallowing the bolus that was in his mouth. Patient eventually swallowed bolus, opened mouth when requested to assure that he had swallow, and no evidence of residual was present. As patient was waxing and waning with lethargy, further trials were not attempted. Patient is currently on safest and least restrictive diet for this setting. It is recommended that patient continue on Chopped/Advanced (NDD3), be allowed soft sandwiches, either from kitchen or floor supply, thin liquids, and pills whole with liquid. Patient continues to require 1-1 feeding. At next level of care, Patient will continue to need a well prepared meal that is soft in texture and cut into bite size pieces and supported with one to one feeding. TEST CONSULTANT will continue to follow. Frequency/Duration: M-F during hospitalization Date Range for Service Req: Timeline to reassess: Structures Engineer Clinican/Clinical Fellow: No Supervisory Statement: I have reviewed and agree with the student/clinical fellow's documentation: N/A Speech Language Pathologist: Monie Luke M.A., CCC-TEST CONSULTANT
--- NOTE | 2023-04-30 13:40 | MHC.CM.PN ---
CM gathered requested information from medical chart and faxed it to [facility], it was part of the application for pt to go there that family obtained and dropped off here for us to complete. Dtr / HCP said she will bring the remaining papers of the application to the Home today.
[2023-04-30 14:15] LABS: Glucose, Whole Blood 152 mg/dL (60-115)
[2023-04-30 14:18] LABS: ABG Base Excess 10.5 mmol/L; ABG HCO3 37 mmol/L (22-26); ABG pCO2 61 mmHg (32-45); ABG pH 7.39 (7.35-7.45); ABG pO2 81 mmHg (83-108)
[2023-04-30 14:42] VITALS: O2SAT 94
[2023-04-30 14:44] LABS: Ammonia 39 umol/L (13-55)
[2023-04-30 15:33] VITALS: BP 121/80; PULSE 60; RESP 12; TEMP 36; O2SAT 97
[2023-04-30 15:55] LABS: Glucose, Whole Blood 157 mg/dL (60-115)
--- NOTE | 2023-04-30 16:14 | PC.NURSE ---
#22 angio inserted in right wrist per primary RN Reyna request,patient tolerated it well
[2023-04-30] MEDS: 0.9 % Sodium Chloride Flush 3 ML SYRINGE IVFLUSH (17:12)
[2023-04-30 18:03] LABS: Anion Gap 12 (12-20); Blood Urea Nitrogen 17 mg/dL (9-16); Calcium 9.4 mg/dL (8.4-10.2); Carbon Dioxide 34 mmol/L (22-29); Chloride 100 mmol/L (96-108); Glucose Random 99 mg/dL (60-115); Potassium 4.6 mmol/L (3.3-5.1); Sodium 141 mmol/L (135-145)
--- NOTE | 2023-04-30 18:43 | PM.EVENT ---
Event Note Date of Service: 04/30/23 Event Note: pt has been more somnolent than usual,, on examination sleeping but awakes to his name and converses apropriately, vital are stable. ABG shows ph 7.39 CO2 61 PO2 81 fully compensated chronic resp acidosis from COPD, labs BMP, ammonia normal, CT head negative, he woke up and ate his dinner. He reportedly was like that yesterday, but later became agresive, beligerant and code assist was called. He maybe more sedated from Psych meds, will have Psych review his meds, get UA Time Spent With Patient Time: Total time managing care of this patient today ____ minutes.
[2023-04-30] MEDS: metFORMIN HCl ER 500 MG TAB.ER.24H PO (18:46)
[2023-04-30 18:52] LABS: Appearance Urine Clear; Color Urine Yellow; Glucose Urine UA Negative (Negative); Leukocyte Esterase Urine Negative (Negative); Nitrite Urine Negative (Negative); PH 5.5 (5.0-9.0); Urine Blood Negative (Negative); Urine Ketones Negative (Negative); Urine Protein Negative (Neg-Trace)
[2023-04-30 19:13] VITALS: BP 115/51; PULSE 61; RESP 18; TEMP 36.4; O2SAT 96
[2023-04-30 19:22] LABS: Glucose, Whole Blood 133 mg/dL (60-115)
[2023-04-30] MEDS: Sennosides 8.6 MG TABLET 17.2 MG PO (20:18)
[2023-04-30] MEDS: Enoxaparin Sodium 40 MG/0.4 ML SYRINGE SUBCUT (20:18)
[2023-04-30] MEDS: Gabapentin 100 MG CAPSULE 200 MG PO (20:18)
[2023-04-30] MEDS: Atorvastatin Calcium 40 MG TABLET PO (20:18)
--- NOTE | 2023-04-30 23:54 | PC.NURSE ---
Pt alert to person and place, responds to voice , answers appropriately, flat affects, no moods swings tonight , tolerated 100% of his dinner, fed by the nursing staff, no s/s of aspiration .
[2023-05-01 00:30] LABS: ABG Refer to POC result
[2023-05-01 03:09] VITALS: BP 135/91; PULSE 67; RESP 18; TEMP 36.1; O2SAT 96
[2023-05-01] MEDS: Omeprazole 20 MG CAPSULE.DR PO (05:51)
--- NOTE | 2023-05-01 06:18 | PC.NURSE ---
Patient A/Ox4 bladder scanned patient @[id number] mls , notified Dr. Abraham, straight cath ordered. Explained procedure to pt, verbalized understanding, 600 mLs total output. Tolerated well. Repositioned in bed to his R side. notified.
[2023-05-01 07:32] LABS: Glucose, Whole Blood 95 mg/dL (60-115)
[2023-05-01 07:42] VITALS: BP 140/70; PULSE 65; RESP 18; TEMP 36.3; O2SAT 95
[2023-05-01] MEDS: Fluticasone/Umeclidinium/Vilanterol 200/62.5/25 BLST.W.DEV 1 PUFF INHALE (07:53)
[2023-05-01 07:56] VITALS: PULSE 67; RESP 18; O2SAT 95
[2023-05-01] MEDS: Acetaminophen 325 MG TABLET 975 MG PO ×3 (09:27→21:17)
[2023-05-01] MEDS: Sertraline HCL 100 MG TABLET PO (09:27)
[2023-05-01] MEDS: Folic Acid 1 MG TABLET PO (09:27)
[2023-05-01] MEDS: carvediloL 3.125 MG TABLET PO (09:27)
[2023-05-01] MEDS: Gabapentin 100 MG CAPSULE 200 MG PO ×2 (09:27→21:19)
[2023-05-01] MEDS: Amoxicillin/Potassium Clav 4,000 MG/50 ML SUSP.RECON 875 MG PO ×2 (09:27→21:48)
[2023-05-01] MEDS: QUEtiapine Fumarate 100 MG TABLET PO (09:27)
[2023-05-01] MEDS: Aspirin Enteric Coated 81 MG TABLET.DR PO (09:27)
[2023-05-01] MEDS: Furosemide 40 MG TABLET PO (09:28)
[2023-05-01] MEDS: Clopidogrel Bisulfate 75 MG TABLET PO (09:28)
[2023-05-01 11:19] LABS: Glucose, Whole Blood 153 mg/dL (60-115)
--- NOTE | 2023-05-01 13:11 | P.PNIM_ITS ---
Subjective Subjective Date of Service: 05/01/23 Interval History: Patient was awake and eating breakfst with staff, vitals look stable. Physical Exam 2 Vital Signs: Vital Signs: Last Vital Signs Temp 97.4 F 05/01/23 07:42 Pulse 67 05/01/23 07:56 Resp 18 05/01/23 07:56 BP 140/70 H 05/01/23 07:42 Pulse Ox 95 05/01/23 07:42 O2 Del Method Nasal Cannula 05/01/23 07:42 O2 Flow Rate 1 05/01/23 07:42 Oxygen Flow Rate 3 03/15/23 18:32 BMI result Body Mass Index 44.3 Appearance: awake,not in distress, cvs: rrr, [id number] . res: clear to auscultation ,no rhonchii or wheezing abd: no rebound or guarding ,nt, bs present. ext pulses present , no cyanosis . neuro: axo3 , nonfocal. Objective Data Active Medications Acetaminophen (Acetaminophen 325 Mg Tablet) 975 mg PO TID [facility] Last Admin: 05/01/23 09:27 Dose: 975 mg Documented By: KARINE Al Hydroxide/Mg Hydroxide (Magnesium Hydrox/Alum Hydrox 30 Ml Oral.Susp) 30 ml PO Q6H PRN PRN Reason: dyspepsia Albuterol Sulfate (Albuterol Sulfate 90 Mcg 8 Gm Inhaler) 2 puff INHALE Q4H PRN PRN Reason: Wheezing Amoxicillin/Clavulanate Potassium (Amoxicillin/Potassium Clav 4,000 Mg/50 Ml Susp.Recon) 875 mg PO BID [facility] Last Admin: 05/01/23 09:27 Dose: 875 mg Documented By: KARINE Aspirin (Aspirin Enteric Coated 81 Mg Tablet.Dr) 81 mg PO DAILY [facility] Last Admin: 05/01/23 09:27 Dose: 81 mg Documented By: KARINE Atorvastatin Calcium (Atorvastatin Calcium 40 Mg Tablet) 40 mg PO BEDTIME [facility] Last Admin: 04/30/23 20:18 Dose: 40 mg Documented By: IBETH Carvedilol (Carvedilol 3.125 Mg Tablet) 3.125 mg PO BID [facility]; Protocol Last Admin: 05/01/23 09:27 Dose: 3.125 mg Documented By: KARINE Clopidogrel Bisulfate (Clopidogrel Bisulfate 75 Mg Tablet) 75 mg PO DAILY [facility] Last Admin: 05/01/23 09:28 Dose: 75 mg Documented By: KARINE Cyanocobalamin (Cyanocobalamin (Vitamin B-12) 1,000 Mcg/Ml Vial) 1,000 mcg IM Q30D [facility] Last Admin: 04/08/23 11:46 Dose: 1,000 mcg Documented By: ASHLEE Dextrose (Dextrose 50 % 25 Gm/50 Ml Syringe) 25 gm IVPUSH Q15M PRN; Protocol PRN Reason: per Hypoglycemia Standing Ord. Docusate Sodium (Docusate Sodium 100 Mg Capsule) 100 mg PO BID PRN PRN Reason: Constipation Enoxaparin Sodium (Enoxaparin Sodium 40 Mg/0.4 Ml Syringe) 40 mg SUBCUT Q24H [facility] Last Admin: 04/30/23 20:18 Dose: 40 mg Documented By: IBETH Fluticasone/Umeclidinium/Vilanterol (Fluticasone/Umeclidinium/Vilanterol 200/62.5/25 Blst.W.Dev) 1 puff INHALE RDAILY [facility] Last Admin: 05/01/23 07:53 Dose: 1 puff Documented By: JASON Folic Acid (Folic Acid 1 Mg Tablet) 1 mg PO DAILY [facility] Last Admin: 05/01/23 09:27 Dose: 1 mg Documented By: KARINE Furosemide (Furosemide 40 Mg Tablet) 40 mg PO DAILY [facility]; Protocol Last Admin: 05/01/23 09:28 Dose: 40 mg Documented By: KARINE Gabapentin (Gabapentin 100 Mg Capsule) 200 mg PO BID [facility] Last Admin: 05/01/23 09:27 Dose: 200 mg Documented By: KARINE Glucose (Glucose Gel 15 Gm Gel..Gram.) 15 gm PO Q15M PRN; Protocol PRN Reason: per Hypoglycemia Standing Ord. Insulin Human Lispro (Insulin Lispro 100 Unit/Ml 3 Ml Vial) 0 unit SUBCUT QIDACHS [facility]; Protocol Last Admin: 05/01/23 12:01 Dose: Not Given Documented By: KARINE Non-Admin Reason: pt has not eaten Lactulose (Lactulose 20 Gm/30 Ml Solution) 10 gm PO DAILY PRN PRN Reason: Constipation Melatonin (Melatonin 3 Mg Tablet) 6 mg PO BEDTIME PRN PRN Reason: Insomnia Last Admin: 04/22/23 20:50 Dose: 6 mg Documented By: KATRINA Metformin HCl (Metformin Hcl Er 500 Mg Tab.Er.24h) 500 mg PO DAILY@1800 [facility] Last Admin: 04/30/23 18:46 Dose: 500 mg Documented By: IBETH Omeprazole (Omeprazole 20 Mg Capsule.Dr) 20 mg PO DAILY@0630 [facility] Last Admin: 05/01/23 05:51 Dose: 20 mg Documented By: PRESLEY Ondansetron HCl (Ondansetron Hcl 4 Mg/2 Ml Vial) 4 mg IVPUSH Q8H PRN PRN Reason: Nausea and Vomiting Last Admin: 04/05/23 12:43 Dose: 4 mg Documented By: FERMIN Polyethylene Glycol (Polyethylene Glycol 3350 17 Gm Powd.Pack) 17 gm PO DAILY PRN PRN Reason: Constipation Quetiapine Fumarate (Quetiapine Fumarate 100 Mg Tablet) 100 mg PO TID [facility] Last Admin: 05/01/23 09:27 Dose: 100 mg Documented By: KARINE Senna (Sennosides 8.6 Mg Tablet) 17.2 mg PO BEDTIME [facility] Last Admin: 04/30/23 20:18 Dose: 17.2 mg Documented By: IBETH Sertraline HCl (Sertraline Hcl 100 Mg Tablet) 100 mg PO DAILY [facility] Last Admin: 05/01/23 09:27 Dose: 100 mg Documented By: KARINE Sodium Chloride (0.9 % Sodium Chloride Flush 3 Ml Syringe) 3 ml IVFLUSH QSHIFT [facility] Last Admin: 05/01/23 12:01 Dose: Not Given Documented By: KARINE Non-Admin Reason: Patient Asleep Trazodone HCl (Trazodone Hcl 50 Mg Tablet) 50 mg PO BEDTIME PRN PRN Reason: insomnia Labs 04/29/23 11:37 04/30/23 09:20 Labs: Laboratory Results - last 24 hr 04/30/23 04/30/23 04/30/23 09:20 14:11 14:12 O2 Saturation 96.0 ABG pH at Pt Temp 7.39 ABG pCO2 at Pt Temp 61 H* ABG pO2 at Pt Temp 81 L ABG HCO3 37 H ABG Base Excess (Actual) 10.5 Anion Gap 12 Estim Creat Clear Calc 76.7 Estimated GFR 54 POC Glucose 152 H Random Glucose 99 Calcium 9.4 Ammonia Urine Color Urine Appearance Urine pH Ur Specific [place] Urine Protein Urine Glucose (UA) Urine Ketones Urine Blood Urine Nitrite Ur Leukocyte Esterase 04/30/23 04/30/23 04/30/23 14:30 14:32 15:52 O2 Saturation ABG pH at Pt Temp ABG pCO2 at Pt Temp ABG pO2 at Pt Temp ABG HCO3 ABG Base Excess (Actual) Anion Gap Estim Creat Clear Calc Estimated GFR POC Glucose 157 H Random Glucose Calcium Ammonia 39 Urine Color Yellow Urine Appearance Clear Urine pH 5.5 Ur Specific [place] 1.020 Urine Protein Negative Urine Glucose (UA) Negative Urine Ketones Negative Urine Blood Negative Urine Nitrite Negative Ur Leukocyte Esterase Negative 04/30/23 05/01/23 05/01/23 19:17 07:23 11:13 O2 Saturation ABG pH at Pt Temp ABG pCO2 at Pt Temp ABG pO2 at Pt Temp ABG HCO3 ABG Base Excess (Actual) Anion Gap Estim Creat Clear Calc Estimated GFR POC Glucose 133 H 95 153 H Random Glucose Calcium Ammonia Urine Color Urine Appearance Urine pH Ur Specific [place] Urine Protein Urine Glucose (UA) Urine Ketones Urine Blood Urine Nitrite Ur Leukocyte Esterase Microbiology Microbiology Results: Microbiology 04/30/23 14:30 Urine Culture - Preliminary Urine Catheterized - Straight Catheter No growth to date. Assessment and Plan (1) Back abscess: Status: Acute Plan 72-year-old male with a PMH significant for?CAD, [id number] diabetes type 2, who initially presented presents to the ED on 03/15/[address] [facility] after reportedly having hallucinations and being combative with staff. Pt was placed in physician observation in the ED until he became hypoxic and tested positive for COVID admitted to the medical floor for treatment and further evaluation of acute hypoxic respiratory failure in the setting of COVID infection and new awaiting Placement back lower Lumbar abcess s/p I and D, culture growing nothing at this point. Continue Augmentin for 7 days Acute hypoxic respiratory failure in the setting COVID 19 infection, resolved -Finished course of dexamethasone and remdesivir -baseline home oxygen 2 L Left mid back discomfort -lipoma -no acute intervention. HTN--continue coreg, lasix morbid obesity weight loss adivsed [id number] type 2 diabetes -acceptable control on current therapies -continue metformin -lispro correctional scale -adjust as indicated Increased somnolence--work up including head CTH, CBC, BMP, UA all have been negative. Concern for oversdation with meds, Psych advises decreasing seroquel to 75 tid and if not improving to 50 Full Code Lovenox requires continued hospital stay for safe disposition . Quality Stroke Does the patient have a stroke diagnosis?: No VTE Prior VTE?: No VTE Risk Level:: Medical - moderate - high VTE Device Contraindication: Treatment Not Indicated VTE Drug Contraindication: N/A - Med Ordered
--- NOTE | 2023-05-01 13:24 | P.CNPS_ITS ---
History of Present Illness Date of Service: 05/01/23 Chief Complaint: sedation Reason for Consult: sedation Requesting physician: Faraz Higgins Discussed with referring provider: Yes (text) Sources of Information: patient interviewed and chart reviewed HPI Narrative: Rodo is a 72-year-old white, partner, man who has been in the hospital and was initially agitated. He has been seen in consultation and his Seroquel was increased to 100 mg t.i.d., Zoloft to 100 mg daily and trazodone 50 mg p.r.n. for sleep. In the past few days he has been overly sedated and input has been requested. No history of substance abuse. 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 Lives with his partner of many years. Review of Systems Review of Systems Yes Unobtainable due to mental condition and Unobtainable due to mental status [facility] Medical History (Updated 04/23/23 @ 10:47 by Katie Cartagena PA-C) Non-insulin dependent type 2 diabetes mellitus HTN (hypertension) CAD (coronary artery disease) Unspecified asthma Diagnostics Vital Signs (24Hr): Vital Signs - 24 hr 04/30/23 15:33 04/30/23 19:13 05/01/23 03:09 Temperature 96.8 F 97.5 F 96.9 F Pulse Rate 60 61 67 Respiratory Rate 12 18 18 Blood Pressure 121/80 115/51 L 135/91 H Pulse Oximetry 97 96 96 Oxygen Delivery Method Nasal Cannula Nasal Cannula Nasal Cannula Oxygen Flow Rate 3 1 1 05/01/23 07:42 05/01/23 07:56 Temperature 97.4 F Pulse Rate 65 67 Respiratory Rate 18 18 Blood Pressure 140/70 H Pulse Oximetry 95 Oxygen Delivery Method Nasal Cannula Oxygen Flow Rate 1 BMI result Body Mass Index 44.3 Labs 04/29/23 11:37 04/30/23 09:20 Labs: Laboratory Results - last 48 hr 04/29/23 04/29/23 04/29/23 11:37 15:55 19:49 O2 Saturation ABG pH at Pt Temp ABG pCO2 at Pt Temp ABG pO2 at Pt Temp ABG HCO3 ABG Base Excess (Actual) Sodium Potassium Chloride Carbon Dioxide Anion Gap BUN Creatinine Estim Creat Clear Calc Estimated GFR POC Glucose 140 H 128 H Random Glucose Calcium Total Bilirubin 0.4 Direct Bilirubin 0.2 AST 32 ALT 27 Alkaline Phosphatase 127 H Ammonia Total Protein 5.7 L Albumin 2.9 L Urine Color Urine Appearance Urine pH Ur Specific [place] Urine Protein Urine Glucose (UA) Urine Ketones Urine Blood Urine Nitrite Ur Leukocyte Esterase 04/30/23 04/30/23 04/30/23 07:49 09:20 11:18 O2 Saturation ABG pH at Pt Temp ABG pCO2 at Pt Temp ABG pO2 at Pt Temp ABG HCO3 ABG Base Excess (Actual) Sodium 141 Potassium 4.6 Chloride 100 Carbon Dioxide 34 H Anion Gap 12 BUN 17 H Creatinine 1.30 Estim Creat Clear Calc 76.7 Estimated GFR 54 POC Glucose 90 117 H Random Glucose 99 Calcium 9.4 Total Bilirubin Direct Bilirubin AST ALT Alkaline Phosphatase Ammonia Total Protein Albumin Urine Color Urine Appearance Urine pH Ur Specific [place] Urine Protein Urine Glucose (UA) Urine Ketones Urine Blood Urine Nitrite Ur Leukocyte Esterase 04/30/23 04/30/23 04/30/23 14:11 14:12 14:30 O2 Saturation 96.0 ABG pH at Pt Temp 7.39 ABG pCO2 at Pt Temp 61 H* ABG pO2 at Pt Temp 81 L ABG HCO3 37 H ABG Base Excess (Actual) 10.5 Sodium Potassium Chloride Carbon Dioxide Anion Gap BUN Creatinine Estim Creat Clear Calc Estimated GFR POC Glucose 152 H Random Glucose Calcium Total Bilirubin Direct Bilirubin AST ALT Alkaline Phosphatase Ammonia Total Protein Albumin Urine Color Yellow Urine Appearance Clear Urine pH 5.5 Ur Specific [place] 1.020 Urine Protein Negative Urine Glucose (UA) Negative Urine Ketones Negative Urine Blood Negative Urine Nitrite Negative Ur Leukocyte Esterase Negative 04/30/23 04/30/23 04/30/23 14:32 15:52 19:17 O2 Saturation ABG pH at Pt Temp ABG pCO2 at Pt Temp ABG pO2 at Pt Temp ABG HCO3 ABG Base Excess (Actual) Sodium Potassium Chloride Carbon Dioxide Anion Gap BUN Creatinine Estim Creat Clear Calc Estimated GFR POC Glucose 157 H 133 H Random Glucose Calcium Total Bilirubin Direct Bilirubin AST ALT Alkaline Phosphatase Ammonia 39 Total Protein Albumin Urine Color Urine Appearance Urine pH Ur Specific [place] Urine Protein Urine Glucose (UA) Urine Ketones Urine Blood Urine Nitrite Ur Leukocyte Esterase 05/01/23 05/01/23 07:23 11:13 O2 Saturation ABG pH at Pt Temp ABG pCO2 at Pt Temp ABG pO2 at Pt Temp ABG HCO3 ABG Base Excess (Actual) Sodium Potassium Chloride Carbon Dioxide Anion Gap BUN Creatinine Estim Creat Clear Calc Estimated GFR POC Glucose 95 153 H Random Glucose Calcium Total Bilirubin Direct Bilirubin AST ALT Alkaline Phosphatase Ammonia Total Protein Albumin Urine Color Urine Appearance Urine pH Ur Specific [place] Urine Protein Urine Glucose (UA) Urine Ketones Urine Blood Urine Nitrite Ur Leukocyte Esterase Imaging Radiology Impressions: ITS Impressions Head CT 03/16/23 11:03 IMPRESSION: No acute intracranial process seen. Chest X-Ray 04/02/23 12:03 IMPRESSION: Mild cardiomegaly Chest X-Ray 04/02/23 19:15 IMPRESSION: Worsening pulmonary aeration with new multifocal patchy and interstitial opacities; the rapid development of findings are worrisome for aspiration, pulmonary edema and atelectasis. Close attention on follow-up recommended. Abdomen Ultrasound 04/22/23 16:52 FINDINGS / IMPRESSION: There is a 2.7 x 2.2 x 2.9 cm complex fluid collection overlying the mid left back. There is a skin tract identified. There is no appreciable flow within or around the lesion. This may represent an abscess. Head CT 04/30/23 16:56 IMPRESSION: No acute intracranial pathology. Mental Status Exam Mental Status Exam Narrative: Rodo was laying on his bed. He is alert, oriented to person and place, the month and the year. He is not able to convey why he is here. He is not able to understand his need for higher level of care. Speech is scanned with only 1 or 2 word answers. No signs of psychosis. No dangerous behaviors. Cognitively he has slow thought processes and some impairment but could not be formally tested. No suicidal ideations. Judgment is marginal Medications Medications Current Medications Acetaminophen (Acetaminophen 325 Mg Tablet) 975 mg PO TID [facility] Last Admin: 05/01/23 09:27 Dose: 975 mg Al Hydroxide/Mg Hydroxide (Magnesium Hydrox/Alum Hydrox 30 Ml Oral.Susp) 30 ml PO Q6H PRN PRN Reason: dyspepsia Albuterol Sulfate (Albuterol Sulfate 90 Mcg 8 Gm Inhaler) 2 puff INHALE Q4H PRN PRN Reason: Wheezing Amoxicillin/Clavulanate Potassium (Amoxicillin/Potassium Clav 4,000 Mg/50 Ml Susp.Recon) 875 mg PO BID [facility] Last Admin: 05/01/23 09:27 Dose: 875 mg Aspirin (Aspirin Enteric Coated 81 Mg Tablet.Dr) 81 mg PO DAILY [facility] Last Admin: 05/01/23 09:27 Dose: 81 mg Atorvastatin Calcium (Atorvastatin Calcium 40 Mg Tablet) 40 mg PO BEDTIME [facility] Last Admin: 04/30/23 20:18 Dose: 40 mg Carvedilol (Carvedilol 3.125 Mg Tablet) 3.125 mg PO BID [facility]; Protocol Last Admin: 05/01/23 09:27 Dose: 3.125 mg Clopidogrel Bisulfate (Clopidogrel Bisulfate 75 Mg Tablet) 75 mg PO DAILY [facility] Last Admin: 05/01/23 09:28 Dose: 75 mg Cyanocobalamin (Cyanocobalamin (Vitamin B-12) 1,000 Mcg/Ml Vial) 1,000 mcg IM Q30D [facility] Last Admin: 04/08/23 11:46 Dose: 1,000 mcg Dextrose (Dextrose 50 % 25 Gm/50 Ml Syringe) 25 gm IVPUSH Q15M PRN; Protocol PRN Reason: per Hypoglycemia Standing Ord. Docusate Sodium (Docusate Sodium 100 Mg Capsule) 100 mg PO BID PRN PRN Reason: Constipation Enoxaparin Sodium (Enoxaparin Sodium 40 Mg/0.4 Ml Syringe) 40 mg SUBCUT Q24H [facility] Last Admin: 04/30/23 20:18 Dose: 40 mg Fluticasone/Umeclidinium/Vilanterol (Fluticasone/Umeclidinium/Vilanterol 200/62.5/25 Blst.W.Dev) 1 puff INHALE RDAILY [facility] Last Admin: 05/01/23 07:53 Dose: 1 puff Folic Acid (Folic Acid 1 Mg Tablet) 1 mg PO DAILY [facility] Last Admin: 05/01/23 09:27 Dose: 1 mg Furosemide (Furosemide 40 Mg Tablet) 40 mg PO DAILY [facility]; Protocol Last Admin: 05/01/23 09:28 Dose: 40 mg Gabapentin (Gabapentin 100 Mg Capsule) 200 mg PO BID [facility] Last Admin: 05/01/23 09:27 Dose: 200 mg Glucose (Glucose Gel 15 Gm Gel..Gram.) 15 gm PO Q15M PRN; Protocol PRN Reason: per Hypoglycemia Standing Ord. Insulin Human Lispro (Insulin Lispro 100 Unit/Ml 3 Ml Vial) 0 unit SUBCUT QIDACHS [facility]; Protocol Last Admin: 05/01/23 12:01 Dose: Not Given Lactulose (Lactulose 20 Gm/30 Ml Solution) 10 gm PO DAILY PRN PRN Reason: Constipation Melatonin (Melatonin 3 Mg Tablet) 6 mg PO BEDTIME PRN PRN Reason: Insomnia Last Admin: 04/22/23 20:50 Dose: 6 mg Metformin HCl (Metformin Hcl Er 500 Mg Tab.Er.24h) 500 mg PO DAILY@1800 [facility] Last Admin: 04/30/23 18:46 Dose: 500 mg Omeprazole (Omeprazole 20 Mg Capsule.Dr) 20 mg PO DAILY@0630 [facility] Last Admin: 05/01/23 05:51 Dose: 20 mg Ondansetron HCl (Ondansetron Hcl 4 Mg/2 Ml Vial) 4 mg IVPUSH Q8H PRN PRN Reason: Nausea and Vomiting Last Admin: 04/05/23 12:43 Dose: 4 mg Polyethylene Glycol (Polyethylene Glycol 3350 17 Gm Powd.Pack) 17 gm PO DAILY PRN PRN Reason: Constipation Quetiapine Fumarate (Quetiapine Fumarate 100 Mg Tablet) 100 mg PO TID [facility] Last Admin: 05/01/23 09:27 Dose: 100 mg Senna (Sennosides 8.6 Mg Tablet) 17.2 mg PO BEDTIME [facility] Last Admin: 04/30/23 20:18 Dose: 17.2 mg Sertraline HCl (Sertraline Hcl 100 Mg Tablet) 100 mg PO DAILY [facility] Last Admin: 05/01/23 09:27 Dose: 100 mg Sodium Chloride (0.9 % Sodium Chloride Flush 3 Ml Syringe) [facility] Last Admin: 05/01/23 12:01 Dose: Not Given Trazodone HCl (Trazodone Hcl 50 Mg Tablet) 50 mg PO BEDTIME PRN PRN Reason: insomnia Allergies Allergies Allergy/AdvReac Type Severity Reaction Status Date / Time No Known Allergies Allergy Verified 03/15/23 18:32 Assessment & Plan Assessment & Plan (1) Major neurocognitive disorder: Status: Acute Code(s): F03.90 - Unspecified dementia, unspecified severity, without behavioral disturbance, psychotic disturbance, mood disturbance, and anxiety Plan I would suggest decreasing his Seroquel to 75 mg t.i.d. initially and if in a couple of days he has not improved to decrease further to 50 mg t.i.d.. Continue Zoloft and trazodone for now Total time managing care of this patient today ____ minutes.
[2023-05-01 15:23] VITALS: BP 109/60; PULSE 60; RESP 18; TEMP 36.3; O2SAT 94
[2023-05-01 15:30] LABS: Glucose, Whole Blood 105 mg/dL (60-115)
[2023-05-01] MEDS: 0.9 % Sodium Chloride Flush 3 ML SYRINGE IVFLUSH ×2 (16:35→21:49)
[2023-05-01] MEDS: metFORMIN HCl ER 500 MG TAB.ER.24H PO (16:35)
--- NOTE | 2023-05-01 18:16 | PC.NURSE ---
pt voided only one time this shift. Bladder scan showed only 76mls. pt denies any pain/discomfort. MD notified, pt started on 02/16 NS
[2023-05-01] MEDS: Sodium Chloride 0.45 % 1,000 ML 100 ML IVCONT (18:35)
[2023-05-01 20:00] VITALS: BP 122/59; PULSE 55; RESP 21; TEMP 37.1; O2SAT 92
[2023-05-01 20:45] LABS: Glucose, Whole Blood 95 mg/dL (60-115)
[2023-05-01] MEDS: Enoxaparin Sodium 40 MG/0.4 ML SYRINGE SUBCUT (21:15)
[2023-05-01] MEDS: Sennosides 8.6 MG TABLET 17.2 MG PO (21:18)
[2023-05-01] MEDS: QUEtiapine Fumarate 25 MG TABLET 75 MG PO (21:19)
[2023-05-01] MEDS: Atorvastatin Calcium 40 MG TABLET PO (21:20)
[2023-05-02 04:00] VITALS: BP 124/62; PULSE 60; RESP 20; TEMP 36.6; O2SAT 93
[2023-05-02 05:14] LABS: Glucose, Whole Blood 84 mg/dL (60-115)
[2023-05-02] MEDS: Omeprazole 20 MG CAPSULE.DR PO (06:57)
[2023-05-02 07:32] LABS: Glucose, Whole Blood 98 mg/dL (60-115)
[2023-05-02 07:45] VITALS: BP 124/50; PULSE 67; RESP 20; TEMP 36.1; O2SAT 93
[2023-05-02] MEDS: Fluticasone/Umeclidinium/Vilanterol 200/62.5/25 BLST.W.DEV 1 PUFF INHALE (07:49)
--- NOTE | 2023-05-02 08:13 | PC.NURSE ---
Pt incontinent of urine twice by 2200 then no U/O at 0500, Pt bladder scanned for 523cc, MD Abraham aware and straight cath ordered. Pt straight cathed for 450cc CYU, No resistance met but patient did not tolerate well from the moment he was being washed. He was repositioned and was resting comfortably once done. plan of care progressing.
--- NOTE | 2023-05-02 09:31 | P.PNIM_ITS ---
Subjective Subjective Date of Service: 05/02/23 Interval History: Pt is more awaker alert and at his baseline Physical Exam 2 Vital Signs: Vital Signs: Last Vital Signs Temp 97.0 F 05/02/23 07:45 Pulse 67 05/02/23 07:45 Resp 20 05/02/23 07:45 BP 124/50 L 05/02/23 07:45 Pulse Ox 93 05/02/23 07:45 O2 Del Method Nasal Cannula 05/02/23 07:45 O2 Flow Rate 2 05/02/23 07:45 Oxygen Flow Rate 3 03/15/23 18:32 BMI result Body Mass Index 44.3 Appearance: awake,not in distress, cvs: rrr, [id number] . res: clear to auscultation ,no rhonchii or wheezing abd: no rebound or guarding ,nt, bs present. ext pulses present , no cyanosis . neuro: axo3 , nonfocal. Objective Data Active Medications Acetaminophen (Acetaminophen 325 Mg Tablet) 975 mg PO TID [facility] Last Admin: 05/01/23 21:17 Dose: 975 mg Documented By: LISA Al Hydroxide/Mg Hydroxide (Magnesium Hydrox/Alum Hydrox 30 Ml Oral.Susp) 30 ml PO Q6H PRN PRN Reason: dyspepsia Albuterol Sulfate (Albuterol Sulfate 90 Mcg 8 Gm Inhaler) 2 puff INHALE Q4H PRN PRN Reason: Wheezing Amoxicillin/Clavulanate Potassium (Amoxicillin/Potassium Clav 4,000 Mg/50 Ml Susp.Recon) 875 mg PO BID [facility] Last Admin: 05/01/23 21:48 Dose: 875 mg Documented By: LISA Aspirin (Aspirin Enteric Coated 81 Mg Tablet.Dr) 81 mg PO DAILY [facility] Last Admin: 05/01/23 09:27 Dose: 81 mg Documented By: KARINE Atorvastatin Calcium (Atorvastatin Calcium 40 Mg Tablet) 40 mg PO BEDTIME [facility] Last Admin: 05/01/23 21:20 Dose: 40 mg Documented By: LISA Carvedilol (Carvedilol 3.125 Mg Tablet) 3.125 mg PO BID [facility]; Protocol Last Admin: 05/01/23 21:48 Dose: Not Given Documented By: LISA Non-Admin Reason: Decreased Heart Rate Clopidogrel Bisulfate (Clopidogrel Bisulfate 75 Mg Tablet) 75 mg PO DAILY [facility] Last Admin: 05/01/23 09:28 Dose: 75 mg Documented By: KARINE Cyanocobalamin (Cyanocobalamin (Vitamin B-12) 1,000 Mcg/Ml Vial) 1,000 mcg IM Q30D [facility] Last Admin: 04/08/23 11:46 Dose: 1,000 mcg Documented By: CHIRAGARLeobardo Dextrose (Dextrose 50 % 25 Gm/50 Ml Syringe) 25 gm IVPUSH Q15M PRN; Protocol PRN Reason: per Hypoglycemia Standing Ord. Docusate Sodium (Docusate Sodium 100 Mg Capsule) 100 mg PO BID PRN PRN Reason: Constipation Enoxaparin Sodium (Enoxaparin Sodium 40 Mg/0.4 Ml Syringe) 40 mg SUBCUT Q24H [facility] Last Admin: 05/01/23 21:15 Dose: 40 mg Documented By: LISA Fluticasone/Umeclidinium/Vilanterol (Fluticasone/Umeclidinium/Vilanterol 200/62.5/25 Blst.W.Dev) 1 puff INHALE RDAILY [facility] Last Admin: 05/02/23 07:49 Dose: 1 puff Documented By: ANITA Folic Acid (Folic Acid 1 Mg Tablet) 1 mg PO DAILY [facility] Last Admin: 05/01/23 09:27 Dose: 1 mg Documented By: KARINE Furosemide (Furosemide 40 Mg Tablet) 40 mg PO DAILY [facility]; Protocol Last Admin: 05/01/23 09:28 Dose: 40 mg Documented By: KARINE Gabapentin (Gabapentin 100 Mg Capsule) 200 mg PO BID [facility] Last Admin: 05/01/23 21:19 Dose: 200 mg Documented By: LISA Glucose (Glucose Gel 15 Gm Gel..Gram.) 15 gm PO Q15M PRN; Protocol PRN Reason: per Hypoglycemia Standing Ord. Sodium Chloride (Sodium Chloride 0.45 %) 1,000 mls @ 100 mls/hr IVCONT .Q10H [facility] Last Infusion: 05/02/23 03:30 Dose: 0 mls/hr Documented By: LISA Insulin Human Lispro (Insulin Lispro 100 Unit/Ml 3 Ml Vial) 0 unit SUBCUT QIDACHS [facility]; Protocol Last Admin: 05/01/23 21:26 Dose: Not Given Documented By: LISA Non-Admin Reason: No Insulin Coverage Lactulose (Lactulose 20 Gm/30 Ml Solution) 10 gm PO DAILY PRN PRN Reason: Constipation Melatonin (Melatonin 3 Mg Tablet) 6 mg PO BEDTIME PRN PRN Reason: Insomnia Last Admin: 04/22/23 20:50 Dose: 6 mg Documented By: KATRINA Metformin HCl (Metformin Hcl Er 500 Mg Tab.Er.24h) 500 mg PO DAILY@1800 [facility] Last Admin: 05/01/23 16:35 Dose: 500 mg Documented By: KARINE Omeprazole (Omeprazole 20 Mg Capsule.Dr) 20 mg PO DAILY@0630 [facility] Last Admin: 05/02/23 06:57 Dose: 20 mg Documented By: LISA Ondansetron HCl (Ondansetron Hcl 4 Mg/2 Ml Vial) 4 mg IVPUSH Q8H PRN PRN Reason: Nausea and Vomiting Last Admin: 04/05/23 12:43 Dose: 4 mg Documented By: FERMIN Polyethylene Glycol (Polyethylene Glycol 3350 17 Gm Powd.Pack) 17 gm PO DAILY PRN PRN Reason: Constipation Quetiapine Fumarate (Quetiapine Fumarate 25 Mg Tablet) 75 mg PO TID [facility] Last Admin: 05/01/23 21:19 Dose: 75 mg Documented By: LISA Senna (Sennosides 8.6 Mg Tablet) 17.2 mg PO BEDTIME [facility] Last Admin: 05/01/23 21:18 Dose: 17.2 mg Documented By: LISA Sertraline HCl (Sertraline Hcl 100 Mg Tablet) 100 mg PO DAILY [facility] Last Admin: 05/01/23 09:27 Dose: 100 mg Documented By: KARINE Sodium Chloride (0.9 % Sodium Chloride Flush 3 Ml Syringe) 3 ml IVFLUSH QSHIFT [facility] Last Admin: 05/01/23 21:49 Dose: 3 ml Documented By: LISA Trazodone HCl (Trazodone Hcl 50 Mg Tablet) 50 mg PO BEDTIME PRN PRN Reason: insomnia Labs 04/29/23 11:37 04/30/23 09:20 Labs: Laboratory Results - last 24 hr 05/01/23 05/01/23 05/01/23 11:13 15:26 20:41 POC Glucose 153 H 105 95 05/02/23 05/02/23 05:09 07:28 POC Glucose 84 98 Microbiology Microbiology Results: Microbiology 04/30/23 14:30 Urine Culture - Preliminary Urine Catheterized - Straight Catheter No growth to date. Assessment and Plan (1) Back abscess: Status: Acute Plan 72-year-old male with a PMH significant for?CAD, qcx-ymrcddl-dailoitby diabetes type 2, who initially presented presents to the ED on 03/15/2023 from SNF after reportedly having hallucinations and being combative with staff. Pt was placed in physician observation in the ED until he became hypoxic and tested positive for COVID admitted to the medical floor for treatment and further evaluation of acute hypoxic respiratory failure in the setting of COVID infection and new awaiting Placement back lower Lumbar abcess s/p I and D, culture growing nothing at this point. Continue Augmentin for 7 days Acute hypoxic respiratory failure in the setting COVID 19 infection, resolved -Finished course of dexamethasone and remdesivir -baseline home oxygen 2 L Left mid back discomfort -lipoma -no acute intervention. HTN--continue coreg, lasix morbid obesity weight loss adivsed Jip-orqnske-qyvokcwgu type 2 diabetes -acceptable control on current therapies -continue metformin -lispro correctional scale -adjust as indicated Increased somnolence--work up including head CTH, CBC, BMP, UA all have been negative. Concern for oversdation with meds, Psych advises decreasing seroquel to 75 tid and if not improving to 50. He is more alert today Decrease urine output not drinking much--encourage oral water, given some IVF and will reassess. Full Code Lovenox requires continued hospital stay for safe disposition . Quality Stroke Does the patient have a stroke diagnosis?: No VTE Prior VTE?: No VTE Risk Level:: Medical - moderate - high VTE Device Contraindication: Treatment Not Indicated VTE Drug Contraindication: N/A - Med Ordered
[2023-05-02] MEDS: Clopidogrel Bisulfate 75 MG TABLET PO (09:51)
[2023-05-02] MEDS: Gabapentin 100 MG CAPSULE 200 MG PO ×2 (09:51→20:56)
[2023-05-02] MEDS: carvediloL 3.125 MG TABLET PO ×2 (09:51→21:00)
[2023-05-02] MEDS: Sertraline HCL 100 MG TABLET PO (09:51)
[2023-05-02] MEDS: Folic Acid 1 MG TABLET PO (09:51)
[2023-05-02] MEDS: Acetaminophen 325 MG TABLET 975 MG PO ×3 (09:51→20:55)
[2023-05-02] MEDS: Aspirin Enteric Coated 81 MG TABLET.DR PO (09:52)
[2023-05-02] MEDS: Furosemide 40 MG TABLET PO (09:52)
[2023-05-02] MEDS: QUEtiapine Fumarate 25 MG TABLET 75 MG PO ×3 (09:52→20:55)
[2023-05-02] MEDS: Amoxicillin/Potassium Clav 4,000 MG/50 ML SUSP.RECON 875 MG PO ×2 (10:20→21:18)
[2023-05-02 11:13] LABS: Glucose, Whole Blood 155 mg/dL (60-115)
[2023-05-02] MEDS: Sodium Chloride 0.45 % 1,000 ML 100 ML IVCONT ×2 (12:12→22:41)
[2023-05-02] MEDS: Insulin Lispro 100 UNIT/ML 3 ML VIAL SUBCUT (12:23)
[2023-05-02 16:00] VITALS: BP 118/59; PULSE 62; RESP 20; TEMP 36.3; O2SAT 95
[2023-05-02 16:24] LABS: Glucose, Whole Blood 125 mg/dL (60-115)
[2023-05-02] MEDS: metFORMIN HCl ER 500 MG TAB.ER.24H PO (17:12)
[2023-05-02 19:05] VITALS: BP 112/55; PULSE 63; RESP 18; TEMP 36.2; O2SAT 94
[2023-05-02] MEDS: Atorvastatin Calcium 40 MG TABLET PO (20:55)
[2023-05-02] MEDS: Sennosides 8.6 MG TABLET 17.2 MG PO (20:55)
[2023-05-02] MEDS: Enoxaparin Sodium 40 MG/0.4 ML SYRINGE SUBCUT (21:00)
[2023-05-02] MEDS: 0.9 % Sodium Chloride Flush 3 ML SYRINGE IVFLUSH (21:04)
[2023-05-02 21:11] LABS: Glucose, Whole Blood 137 mg/dL (60-115)
[2023-05-03 03:03] VITALS: BP 121/58; PULSE 60; RESP 18; TEMP 36.4; O2SAT 92
[2023-05-03] MEDS: Omeprazole 20 MG CAPSULE.DR PO (06:10)
[2023-05-03 06:56] LABS: Glucose, Whole Blood 88 mg/dL (60-115)
[2023-05-03 07:09] VITALS: BP 132/56; PULSE 62; RESP 18; TEMP 36.2; O2SAT 95
[2023-05-03] MEDS: Fluticasone/Umeclidinium/Vilanterol 200/62.5/25 BLST.W.DEV 1 PUFF INHALE (07:53)
[2023-05-03 07:54] VITALS: PULSE 63; RESP 18; O2SAT 93
[2023-05-03 09:01] LABS: Anion Gap 10 (12-20); Blood Urea Nitrogen 18 mg/dL (9-16); Calcium 9.1 mg/dL (8.4-10.2); Carbon Dioxide 34 mmol/L (22-29); Chloride 101 mmol/L (96-108); Estimated Glomerular Filt Rate > 60; Glucose Random 91 mg/dL (60-115); Potassium 4.2 mmol/L (3.3-5.1); Sodium 141 mmol/L (135-145)
[2023-05-03] MEDS: Clopidogrel Bisulfate 75 MG TABLET PO (09:03)
[2023-05-03] MEDS: QUEtiapine Fumarate 25 MG TABLET 75 MG PO ×3 (09:03→20:56)
[2023-05-03] MEDS: Furosemide 40 MG TABLET PO (09:03)
[2023-05-03] MEDS: Sertraline HCL 100 MG TABLET PO (09:03)
[2023-05-03] MEDS: Gabapentin 100 MG CAPSULE 200 MG PO ×2 (09:03→20:54)
[2023-05-03] MEDS: Aspirin Enteric Coated 81 MG TABLET.DR PO (09:03)
[2023-05-03] MEDS: Amoxicillin/Potassium Clav 4,000 MG/50 ML SUSP.RECON 875 MG PO (09:04)
[2023-05-03] MEDS: Folic Acid 1 MG TABLET PO (09:04)
[2023-05-03] MEDS: carvediloL 3.125 MG TABLET PO ×2 (09:04→20:54)
--- NOTE | 2023-05-03 10:26 | P.PNIM_ITS ---
Subjective Subjective Date of Service: 05/03/23 Interval History: He is at his baseline, no acute complaining, Physical Exam 2 Vital Signs: Vital Signs: Last Vital Signs Temp 97.2 F 05/03/23 07:09 Pulse 63 05/03/23 07:54 Resp 18 05/03/23 07:54 BP 132/56 L 05/03/23 07:09 Pulse Ox 95 05/03/23 07:09 O2 Del Method Nasal Cannula 05/03/23 07:09 O2 Flow Rate 2 05/03/23 07:09 Oxygen Flow Rate 3 03/15/23 18:32 BMI result Body Mass Index 44.3 Appearance: awake,not in distress, cvs: rrr, [id number] . res: clear to auscultation ,no rhonchii or wheezing abd: no rebound or guarding ,nt, bs present. ext pulses present , no cyanosis . neuro: axo3 , nonfocal. Objective Data Active Medications Acetaminophen (Acetaminophen 325 Mg Tablet) 975 mg PO TID [facility] Last Admin: 05/03/23 08:43 Dose: Not Given Documented By: YUDY Non-Admin Reason: not needed Al Hydroxide/Mg Hydroxide (Magnesium Hydrox/Alum Hydrox 30 Ml Oral.Susp) 30 ml PO Q6H PRN PRN Reason: dyspepsia Albuterol Sulfate (Albuterol Sulfate 90 Mcg 8 Gm Inhaler) 2 puff INHALE Q4H PRN PRN Reason: Wheezing Amoxicillin/Clavulanate Potassium (Amoxicillin/Potassium Clav 4,000 Mg/50 Ml Susp.Recon) 875 mg PO BID [facility] Last Admin: 05/03/23 09:04 Dose: 875 mg Documented By: YUDY Aspirin (Aspirin Enteric Coated 81 Mg Tablet.Dr) 81 mg PO DAILY [facility] Last Admin: 05/03/23 09:03 Dose: 81 mg Documented By: YUDY Atorvastatin Calcium (Atorvastatin Calcium 40 Mg Tablet) 40 mg PO BEDTIME [facility] Last Admin: 05/02/23 20:55 Dose: 40 mg Documented By: ARLEEN Carvedilol (Carvedilol 3.125 Mg Tablet) 3.125 mg PO BID [facility]; Protocol Last Admin: 05/03/23 09:04 Dose: 3.125 mg Documented By: YUDY Clopidogrel Bisulfate (Clopidogrel Bisulfate 75 Mg Tablet) 75 mg PO DAILY [facility] Last Admin: 05/03/23 09:03 Dose: 75 mg Documented By: YUDY Cyanocobalamin (Cyanocobalamin (Vitamin B-12) 1,000 Mcg/Ml Vial) 1,000 mcg IM Q30D [facility] Last Admin: 04/08/23 11:46 Dose: 1,000 mcg Documented By: LESSARLeobardo Dextrose (Dextrose 50 % 25 Gm/50 Ml Syringe) 25 gm IVPUSH Q15M PRN; Protocol PRN Reason: per Hypoglycemia Standing Ord. Docusate Sodium (Docusate Sodium 100 Mg Capsule) 100 mg PO BID PRN PRN Reason: Constipation Enoxaparin Sodium (Enoxaparin Sodium 40 Mg/0.4 Ml Syringe) 40 mg SUBCUT Q24H [facility] Last Admin: 05/02/23 21:00 Dose: 40 mg Documented By: ARLEEN Fluticasone/Umeclidinium/Vilanterol (Fluticasone/Umeclidinium/Vilanterol 200/62.5/25 Blst.W.Dev) 1 puff INHALE RDAILY [facility] Last Admin: 05/03/23 07:53 Dose: 1 puff Documented By: YANN Folic Acid (Folic Acid 1 Mg Tablet) 1 mg PO DAILY [facility] Last Admin: 05/03/23 09:04 Dose: 1 mg Documented By: YUDY Furosemide (Furosemide 40 Mg Tablet) 40 mg PO DAILY [facility]; Protocol Last Admin: 05/03/23 09:03 Dose: 40 mg Documented By: YUDY Gabapentin (Gabapentin 100 Mg Capsule) 200 mg PO BID [facility] Last Admin: 05/03/23 09:03 Dose: 200 mg Documented By: YUDY Glucose (Glucose Gel 15 Gm Gel..Gram.) 15 gm PO Q15M PRN; Protocol PRN Reason: per Hypoglycemia Standing Ord. Insulin Human Lispro (Insulin Lispro 100 Unit/Ml 3 Ml Vial) 0 unit SUBCUT QIDACHS [facility]; Protocol Last Admin: 05/03/23 06:57 Dose: Not Given Documented By: YUDY Non-Admin Reason: No Insulin Coverage Lactulose (Lactulose 20 Gm/30 Ml Solution) 10 gm PO DAILY PRN PRN Reason: Constipation Melatonin (Melatonin 3 Mg Tablet) 6 mg PO BEDTIME PRN PRN Reason: Insomnia Last Admin: 04/22/23 20:50 Dose: 6 mg Documented By: KATRINA Metformin HCl (Metformin Hcl Er 500 Mg Tab.Er.24h) 500 mg PO DAILY@1800 [facility] Last Admin: 05/02/23 17:12 Dose: 500 mg Documented By: YUDY Omeprazole (Omeprazole 20 Mg Capsule.Dr) 20 mg PO DAILY@0630 [facility] Last Admin: 05/03/23 06:10 Dose: 20 mg Documented By: ARLEEN Ondansetron HCl (Ondansetron Hcl 4 Mg/2 Ml Vial) 4 mg IVPUSH Q8H PRN PRN Reason: Nausea and Vomiting Last Admin: 04/05/23 12:43 Dose: 4 mg Documented By: FERMIN Polyethylene Glycol (Polyethylene Glycol 3350 17 Gm Powd.Pack) 17 gm PO DAILY PRN PRN Reason: Constipation Quetiapine Fumarate (Quetiapine Fumarate 25 Mg Tablet) 75 mg PO TID [facility] Last Admin: 05/03/23 09:03 Dose: 75 mg Documented By: YUDY Senna (Sennosides 8.6 Mg Tablet) 17.2 mg PO BEDTIME [facility] Last Admin: 05/02/23 20:55 Dose: 17.2 mg Documented By: ARLEEN Sertraline HCl (Sertraline Hcl 100 Mg Tablet) 100 mg PO DAILY [facility] Last Admin: 05/03/23 09:03 Dose: 100 mg Documented By: YUDY Sodium Chloride (0.9 % Sodium Chloride Flush 3 Ml Syringe) 3 ml IVFLUSH QSHIFT [facility] Last Admin: 05/03/23 08:00 Dose: Not Given Documented By: YUDY Non-Admin Reason: IV Running Trazodone HCl (Trazodone Hcl 50 Mg Tablet) 50 mg PO BEDTIME PRN PRN Reason: insomnia Labs 04/29/23 11:37 05/03/23 07:59 Labs: Laboratory Results - last 24 hr 05/02/23 05/02/23 05/02/23 11:07 16:20 20:25 Hold Purple Top Anion Gap Estim Creat Clear Calc Estimated GFR POC Glucose 155 H 125 H 137 H Random Glucose Calcium 05/03/23 05/03/23 06:52 07:59 Hold Purple Top SEE NOTE Anion Gap 10 L Estim Creat Clear Calc 89.0 Estimated GFR > 60 POC Glucose 88 Random Glucose 91 Calcium 9.1 Microbiology Microbiology Results: Microbiology 04/30/23 14:30 Urine Culture - Final Urine Catheterized - Straight Catheter No growth. Assessment and Plan (1) Back abscess: Status: Acute Plan 72-year-old male with a PMH significant for?CAD, bdm-rzzelxx-hgrfrxukc diabetes type 2, who initially presented presents to the ED on 03/15/2023 from SNF after reportedly having hallucinations and being combative with staff. Pt was placed in physician observation in the ED until he became hypoxic and tested positive for COVID admitted to the medical floor for treatment and further evaluation of acute hypoxic respiratory failure in the setting of COVID infection and new awaiting Placement back lower Lumbar abcess s/p I and D, culture growing nothing at this point. Has completed course of Augmentin Acute hypoxic respiratory failure in the setting COVID 19 infection, resolved -Finished course of dexamethasone and remdesivir -baseline home oxygen 2 L Left mid back discomfort -lipoma -no acute intervention. HTN--continue coreg, lasix morbid obesity weight loss adivsed Mye-ifsrzzh-ykfamhqgi type 2 diabetes -acceptable control on current therapies -continue metformin -lispro correctional scale -adjust as indicated Increased somnolence--work up including head CTH, CBC, BMP, UA all have been negative. Concern for oversdation with meds, Psych advises decreasing seroquel to 75 tid and if not improving to 50. resolved. Dehydration, given IVF last 2 days, Bun/Creating better, he is eating and drinking on his own Decrease urine output not drinking much--encourage oral water, given some IVF and will reassess. Full Code Lovenox requires continued hospital stay for safe disposition . Quality Stroke Does the patient have a stroke diagnosis?: No VTE Prior VTE?: No VTE Risk Level:: Medical - moderate - high VTE Device Contraindication: Treatment Not Indicated VTE Drug Contraindication: N/A - Med Ordered
[2023-05-03 10:51] LABS: MANUAL DIFF FLAG NO
[2023-05-03 11:00] LABS: Basophils Percent Auto 0.3 % (0-2); Eosinophils Absolute Auto 0.5 X10*3/uL (0.0-0.4); Eosinophils Percent Auto 8.7 % (0-4); Hemoglobin 11.9 g/dl (14.0-18.0); Imm Gran Abs Auto 0.16 X10*3/uL (0.00-0.03); Imm Gran Pct Auto 2.6 % (0.0-0.4); Lymphocytes Absolute Auto 1.4 X10*3/uL (1.2-4.9); Lymphocytes Percent Auto 21.7 % (20-40); Mean Corpuscular HGB Conc 33.1 g/dl (31.0-36.0); Mean Corpuscular Volume 102.9 fL (80.0-98.0); Monocytes Absolute Auto 0.5 X10*3/uL (0.1-1.2); Monocytes Percent Auto 7.4 % (2-11); Neutrophils Absolute Auto 3.7 x10*3/uL (2.0-8.3); Neutrophils Percent Auto 59.3 % (45-73); Platelet Count 223 X10*3/uL (160-400); Red Cell Distribution Width 16.5 % (11.0-16.0); White Blood Count 6.2 X10*3/uL (4.8-10.8)
[2023-05-03 11:06] LABS: Glucose, Whole Blood 114 mg/dL (60-115)
--- NOTE | 2023-05-03 11:37 | MHC.SLORD ---
Speech Language Pathology Order Status: Patient attempting to get out of bed and refusing to participate in SOCIAL SECURITY BENEFITS INTERVIEWER eval/tx. He is on a chopped/advanced diet (NDD3), permitted soft sandwiches. SOCIAL SECURITY BENEFITS INTERVIEWER to f/u 1-2x.
--- NOTE | 2023-05-03 13:01 | MHC.CM.PN ---
Pt has been medically cleared for DC, we are still seeking LTC placement in SNF for him. Today, CM re sent requests for a bed through care port to all SNFs in [facility] and [facility].
[2023-05-03 15:47] VITALS: BP 138/62; PULSE 63; RESP 20; TEMP 36.4; O2SAT 92
[2023-05-03 16:18] LABS: Glucose, Whole Blood 117 mg/dL (60-115)
[2023-05-03] MEDS: Acetaminophen 325 MG TABLET 975 MG PO ×2 (16:21→20:55)
[2023-05-03] MEDS: metFORMIN HCl ER 500 MG TAB.ER.24H PO (16:22)
[2023-05-03] MEDS: 0.9 % Sodium Chloride Flush 3 ML SYRINGE IVFLUSH ×2 (16:23→21:30)
[2023-05-03 19:30] VITALS: BP 119/58; PULSE 79; RESP 20; TEMP 36.3; O2SAT 92
[2023-05-03] MEDS: Atorvastatin Calcium 40 MG TABLET PO (20:56)
[2023-05-03] MEDS: Enoxaparin Sodium 40 MG/0.4 ML SYRINGE SUBCUT (20:57)
[2023-05-03 21:17] LABS: Glucose, Whole Blood 116 mg/dL (60-115)
[2023-05-04 03:20] VITALS: BP 136/64; PULSE 62; RESP 20; TEMP 36.1; O2SAT 94
[2023-05-04] MEDS: Omeprazole 20 MG CAPSULE.DR PO (06:06)
[2023-05-04 07:08] LABS: Glucose, Whole Blood 86 mg/dL (60-115)
[2023-05-04] MEDS: Fluticasone/Umeclidinium/Vilanterol 200/62.5/25 BLST.W.DEV 1 PUFF INHALE (07:37)
[2023-05-04 07:38] VITALS: PULSE 69; RESP 20; O2SAT 94
[2023-05-04 07:46] VITALS: BP 116/50; PULSE 60; RESP 15; TEMP 36; O2SAT 95
--- NOTE | 2023-05-04 08:00 | PC.RT ---
pt on oxyegn and no orders present
[2023-05-04] MEDS: Folic Acid 1 MG TABLET PO (08:32)
[2023-05-04] MEDS: Clopidogrel Bisulfate 75 MG TABLET PO (08:32)
[2023-05-04] MEDS: Furosemide 40 MG TABLET PO (08:32)
[2023-05-04] MEDS: Acetaminophen 325 MG TABLET 975 MG PO ×3 (08:32→23:07)
[2023-05-04] MEDS: Gabapentin 100 MG CAPSULE 200 MG PO ×2 (08:32→23:08)
[2023-05-04] MEDS: carvediloL 3.125 MG TABLET PO ×2 (08:33→23:09)
[2023-05-04] MEDS: Aspirin Enteric Coated 81 MG TABLET.DR PO (08:33)
[2023-05-04] MEDS: 0.9 % Sodium Chloride Flush 3 ML SYRINGE IVFLUSH (08:33)
[2023-05-04] MEDS: QUEtiapine Fumarate 25 MG TABLET 75 MG PO ×3 (08:33→23:08)
[2023-05-04] MEDS: Sertraline HCL 100 MG TABLET PO (09:22)
--- NOTE | 2023-05-04 10:40 | HO.PM.IMPN ---
Subjective Subjective Date of Service: 05/04/23 Interval History: He is at his baseline, no acute complaining, Physical Exam Vital Signs: Vital Signs: Last Vital Signs Temp 96.8 F 05/04/23 07:46 Pulse 60 05/04/23 07:46 Resp 15 05/04/23 07:46 BP 116/50 L 05/04/23 07:46 Pulse Ox 95 05/04/23 07:46 O2 Del Method Nasal Cannula 05/04/23 07:46 O2 Flow Rate 2 05/04/23 07:46 Oxygen Flow Rate 3 03/15/23 18:32 BMI result Body Mass Index 44.3 Appearance: awake,not in distress, cvs: [id number], [id number] . res: clear to auscultation ,no rhonchii or wheezing abd: no rebound or guarding ,nt, bs present. ext pulses present , no cyanosis . neuro: axo3 , nonfocal. Objective Data Active Medications Acetaminophen (Acetaminophen 325 Mg Tablet) 975 mg PO TID [facility] Last Admin: 05/04/23 08:32 Dose: 975 mg Documented By: ALLEN Al Hydroxide/Mg Hydroxide (Magnesium Hydrox/Alum Hydrox 30 Ml Oral.Susp) 30 ml PO Q6H PRN PRN Reason: dyspepsia Albuterol Sulfate (Albuterol Sulfate 90 Mcg 8 Gm Inhaler) 2 puff INHALE Q4H PRN PRN Reason: Wheezing Aspirin (Aspirin Enteric Coated 81 Mg Tablet.) 81 mg PO DAILY [facility] Last Admin: 05/04/23 08:33 Dose: 81 mg Documented By: ALLEN Atorvastatin Calcium (Atorvastatin Calcium 40 Mg Tablet) 40 mg PO BEDTIME [facility] Last Admin: 05/03/23 20:56 Dose: 40 mg Documented By: BE Carvedilol (Carvedilol 3.125 Mg Tablet) 3.125 mg PO BID [facility]; Protocol Last Admin: 05/04/23 08:33 Dose: 3.125 mg Documented By: ALLEN Clopidogrel Bisulfate (Clopidogrel Bisulfate 75 Mg Tablet) 75 mg PO DAILY [facility] Last Admin: 05/04/23 08:32 Dose: 75 mg Documented By: ALLEN Cyanocobalamin (Cyanocobalamin (Vitamin B-12) 1,000 Mcg/Ml Vial) 1,000 mcg IM Q30D [facility] Last Admin: 04/08/23 11:46 Dose: 1,000 mcg Documented By: CHIRAGARLeobardo Dextrose (Dextrose 50 % 25 Gm/50 Ml Syringe) 25 gm IVPUSH Q15M PRN; Protocol PRN Reason: per Hypoglycemia Standing Ord. Docusate Sodium (Docusate Sodium 100 Mg Capsule) 100 mg PO BID PRN PRN Reason: Constipation Enoxaparin Sodium (Enoxaparin Sodium 40 Mg/0.4 Ml Syringe) 40 mg SUBCUT Q24H [facility] Last Admin: 05/03/23 20:57 Dose: 40 mg Documented By: BE Fluticasone/Umeclidinium/Vilanterol (Fluticasone/Umeclidinium/Vilanterol 200/62.5/25 Blst.W.Dev) 1 puff INHALE RDAILY [facility] Last Admin: 05/04/23 07:37 Dose: 1 puff Documented By: YANN Folic Acid (Folic Acid 1 Mg Tablet) 1 mg PO DAILY [facility] Last Admin: 05/04/23 08:32 Dose: 1 mg Documented By: ALLEN Furosemide (Furosemide 40 Mg Tablet) 40 mg PO DAILY [facility]; Protocol Last Admin: 05/04/23 08:32 Dose: 40 mg Documented By: ALLEN Gabapentin (Gabapentin 100 Mg Capsule) 200 mg PO BID [facility] Last Admin: 05/04/23 08:32 Dose: 200 mg Documented By: ALLEN Glucose (Glucose Gel 15 Gm Gel..Gram.) 15 gm PO Q15M PRN; Protocol PRN Reason: per Hypoglycemia Standing Ord. Insulin Human Lispro (Insulin Lispro 100 Unit/Ml 3 Ml Vial) 0 unit SUBCUT QIDACHS [facility]; Protocol Last Admin: 05/04/23 08:51 Dose: Not Given Documented By: ALLEN Non-Admin Reason: No Insulin Coverage Lactulose (Lactulose 20 Gm/30 Ml Solution) 10 gm PO DAILY PRN PRN Reason: Constipation Melatonin (Melatonin 3 Mg Tablet) 6 mg PO BEDTIME PRN PRN Reason: Insomnia Last Admin: 04/22/23 20:50 Dose: 6 mg Documented By: KATRINA Metformin HCl (Metformin Hcl Er 500 Mg Tab.Er.24h) 500 mg PO DAILY@1800 [facility] Last Admin: 05/03/23 16:22 Dose: 500 mg Documented By: HO.RUANES Omeprazole (Omeprazole 20 Mg Capsule.Dr) 20 mg PO DAILY@0630 [facility] Last Admin: 05/04/23 06:06 Dose: 20 mg Documented By: BE Ondansetron HCl (Ondansetron Hcl 4 Mg/2 Ml Vial) 4 mg IVPUSH Q8H PRN PRN Reason: Nausea and Vomiting Last Admin: 04/05/23 12:43 Dose: 4 mg Documented By: FERMIN Polyethylene Glycol (Polyethylene Glycol 3350 17 Gm Powd.Pack) 17 gm PO DAILY PRN PRN Reason: Constipation Quetiapine Fumarate (Quetiapine Fumarate 25 Mg Tablet) 75 mg PO TID [facility] Last Admin: 05/04/23 08:33 Dose: 75 mg Documented By: ALLEN Senna (Sennosides 8.6 Mg Tablet) 17.2 mg PO BEDTIME [facility] Last Admin: 05/03/23 20:56 Dose: Not Given Documented By: BE Non-Admin Reason: Patient Refused Sertraline HCl (Sertraline Hcl 100 Mg Tablet) 100 mg PO DAILY [facility] Last Admin: 05/04/23 09:22 Dose: 100 mg Documented By: ALLEN Sodium Chloride (0.9 % Sodium Chloride Flush 3 Ml Syringe) 3 ml IVFLUSH QSHIFT [facility] Last Admin: 05/04/23 08:33 Dose: 3 ml Documented By: ALLEN Trazodone HCl (Trazodone Hcl 50 Mg Tablet) 50 mg PO BEDTIME PRN PRN Reason: insomnia Labs 05/03/23 07:59 05/03/23 07:59 Labs: Laboratory Results - last 24 hr 05/03/23 05/03/23 05/03/23 07:59 11:02 16:09 MCV 102.9 H MCH 34.0 H MCHC 33.1 RDW 16.5 H Plt Count 223 MPV 9.0 L Immature Gran % (Auto) 2.6 H Neut % (Auto) 59.3 Lymph % (Auto) 21.7 Dukes % (Auto) 7.4 Eos % (Auto) 8.7 H Baso % (Auto) 0.3 Lymph # (Auto) 1.4 Dukes # (Auto) 0.5 Eos # (Auto) 0.5 H Baso # (Auto) 0.0 Abs Immat Gran (auto) 0.16 H Absolute Neuts (auto) 3.7 Absolute Nucleated RBC 0.000 Nucleated RBC % (auto) 0.0 POC Glucose 114 117 H 05/03/23 05/04/23 21:05 07:01 MCV MCH MCHC RDW Plt Count MPV Immature Gran % (Auto) Neut % (Auto) Lymph % (Auto) Dukes % (Auto) Eos % (Auto) Baso % (Auto) Lymph # (Auto) Dukes # (Auto) Eos # (Auto) Baso # (Auto) Abs Immat Gran (auto) Absolute Neuts (auto) Absolute Nucleated RBC Nucleated RBC % (auto) POC Glucose 116 H 86 Assessment and Plan (1) Back abscess: Status: Acute Plan 72-year-old male with a PMH significant for?CAD, lik-vspnniw-njfinesgy diabetes type 2, who initially presented presents to the ED on 03/15/2023 from SNF after reportedly having hallucinations and being combative with staff. Pt was placed in physician observation in the ED until he became hypoxic and tested positive for COVID admitted to the medical floor for treatment and further evaluation of acute hypoxic respiratory failure in the setting of COVID infection and new awaiting Placement back lower Lumbar abcess s/p I and D, culture growing nothing at this point. Has completed course of Augmentin Acute hypoxic respiratory failure in the setting COVID 19 infection, resolved -Finished course of dexamethasone and remdesivir -baseline home oxygen 2 L Left mid back discomfort -lipoma -no acute intervention. HTN--continue coreg, lasix morbid obesity weight loss adivsed Vfz-pnfdiev-xgeaeiohv type 2 diabetes -acceptable control on current therapies -continue metformin -lispro correctional scale -adjust as needed Increased somnolence--work up including head CTH, CBC, BMP, UA all have been negative. Concern for oversdation with meds, Psych advises decreasing seroquel to 75 tid and if not improving to 50. resolved. Dehydration, given IVF last 2 days, Bun/Creating better, he is eating and drinking on his own Decrease urine output not drinking much--encourage oral water, given some IVF and improved. check labs every week or every other week, mondays Full Code Lovenox requires continued hospital stay for safe disposition . Quality Stroke Does the patient have a stroke diagnosis?: No VTE Prior VTE?: No VTE Risk Level:: Medical - moderate - high VTE Device Contraindication: Treatment Not Indicated VTE Drug Contraindication: N/A - Med Ordered
--- NOTE | 2023-05-04 11:15 | MHC.SPEECHCO ---
Pt declined offerings of PO food and drink this morning. Per EMR, Pt tolerating his current diet with 1:1 feeding assistance. SIGN LANGUAGE INSTRUCTOR will re-attempt x1.
[2023-05-04 11:24] LABS: Glucose, Whole Blood 151 mg/dL (60-115)
[2023-05-04 11:27] VITALS: BP 108/63; PULSE 59; RESP 18; TEMP 36; O2SAT 94
--- NOTE | 2023-05-04 11:41 | MHC.CM.PN ---
[facility], spoke to Chyna who states they don't currently have any open beds to offer, but they are willing to continue to follow and review his case. Clinical updates faxed to Chyna for her review.
[2023-05-04] MEDS: Insulin Lispro 100 UNIT/ML 3 ML VIAL SUBCUT (11:54)
--- NOTE | 2023-05-04 13:03 | HO.WOUND ---
Wound Consult: Follow up 72yr old?[place] [facility] [place] See progress notes and H&P for detailed history.? Wound consult followup for reassessment of penis wound.? Arrival to bedside pt was in bed and agreeable to my assessment. Penis foreskin pulled back and assessed - no injury noted - no device in place - male urinary pad in place. Penis - Resolved device related mucosal pressure injury - no injury noted at this time. Topical care orders updated for direct care team.
[2023-05-04 15:55] VITALS: BP 137/63; PULSE 60; RESP 20; TEMP 36.2; O2SAT 99
[2023-05-04 16:34] LABS: Glucose, Whole Blood 76 mg/dL (60-115)
[2023-05-04] MEDS: metFORMIN HCl ER 500 MG TAB.ER.24H PO (17:08)
[2023-05-04 20:00] VITALS: BP 122/53; PULSE 73; RESP 20; TEMP 36.5; O2SAT 90
[2023-05-04 20:08] LABS: Glucose, Whole Blood 113 mg/dL (60-115)
[2023-05-04] MEDS: Enoxaparin Sodium 40 MG/0.4 ML SYRINGE SUBCUT (23:07)
[2023-05-04] MEDS: Atorvastatin Calcium 40 MG TABLET PO (23:08)
[2023-05-04] MEDS: traZODone HCL 50 MG TABLET PO (23:08)
[2023-05-04] MEDS: Sennosides 8.6 MG TABLET 17.2 MG PO (23:08)
[2023-05-05 03:42] VITALS: BP 119/66; PULSE 72; RESP 20; TEMP 36.1; O2SAT 92
[2023-05-05 07:18] VITALS: BP 110/62; PULSE 59; RESP 20; TEMP 36.4; O2SAT 93
[2023-05-05 07:30] LABS: Glucose, Whole Blood 98 mg/dL (60-115)
[2023-05-05] MEDS: Aspirin Enteric Coated 81 MG TABLET.DR PO (09:48)
[2023-05-05] MEDS: Furosemide 40 MG TABLET PO (09:49)
[2023-05-05] MEDS: Gabapentin 100 MG CAPSULE 200 MG PO (09:49)
[2023-05-05] MEDS: Clopidogrel Bisulfate 75 MG TABLET PO (09:49)
[2023-05-05] MEDS: Sertraline HCL 100 MG TABLET PO (09:49)
[2023-05-05] MEDS: carvediloL 3.125 MG TABLET PO (09:49)
[2023-05-05] MEDS: Acetaminophen 325 MG TABLET 975 MG PO ×2 (09:49→20:52)
[2023-05-05] MEDS: Folic Acid 1 MG TABLET PO (09:50)
[2023-05-05] MEDS: QUEtiapine Fumarate 25 MG TABLET 75 MG PO (09:55)
[2023-05-05 11:05] LABS: Glucose, Whole Blood 120 mg/dL (60-115)
[2023-05-05 11:12] VITALS: BP 163/70; PULSE 68; RESP 20; TEMP 35.9; O2SAT 95
[2023-05-05 11:40] LABS: Glucose, Whole Blood 116 mg/dL (60-115)
--- NOTE | 2023-05-05 12:17 | P.PNIM_ITS ---
Subjective Subjective Date of Service: 05/05/23 Interval History: Seen and evaluated this morning and afternoon difficult to arouse reported more sleepy and less responsive overnight denies any complaints Review of Systems Review of Systems: Yes all other systems are reviewed and are negative Physical Exam 2 Vital Signs: Vital Signs: Last Vital Signs Temp 96.6 F L 05/05/23 11:12 Pulse 68 05/05/23 11:12 Resp 20 05/05/23 11:12 BP 163/70 H 05/05/23 11:12 Pulse Ox 95 05/05/23 11:12 O2 Del Method Nasal Cannula 05/05/23 11:12 O2 Flow Rate 2 05/05/23 11:12 Oxygen Flow Rate 3 03/15/23 18:32 BMI result Body Mass Index 44.3 Const: Other: Constitutional : sleeping, not in distress Neck : Normal inspection, Supple Cardiovascular : RRR, no JVP, no lower extremity edema Respiratory : good bilateral air entry, no crackles, wheezes or rhonchi Gastrointestinal: soft, lax, Normal bowel sounds, Non tender Skin : Warm, Dry Neurological : Alert with stimulation, difficult to arouse, Objective Data Active Medications Acetaminophen (Acetaminophen 325 Mg Tablet) 975 mg PO TID [facility] Last Admin: 05/05/23 09:49 Dose: 975 mg Documented By: LEANN Al Hydroxide/Mg Hydroxide (Magnesium Hydrox/Alum Hydrox 30 Ml Oral.Susp) 30 ml PO Q6H PRN PRN Reason: dyspepsia Albuterol Sulfate (Albuterol Sulfate 90 Mcg 8 Gm Inhaler) 2 puff INHALE Q4H PRN PRN Reason: Wheezing Aspirin (Aspirin Enteric Coated 81 Mg Tablet.) 81 mg PO DAILY [facility] Last Admin: 05/05/23 09:48 Dose: 81 mg Documented By: LEANN Atorvastatin Calcium (Atorvastatin Calcium 40 Mg Tablet) 40 mg PO BEDTIME [facility] Last Admin: 05/04/23 23:08 Dose: 40 mg Documented By: TRUPTI Carvedilol (Carvedilol 3.125 Mg Tablet) 3.125 mg PO BID [facility]; Protocol Last Admin: 05/05/23 09:49 Dose: 3.125 mg Documented By: LEANN Clopidogrel Bisulfate (Clopidogrel Bisulfate 75 Mg Tablet) 75 mg PO DAILY [facility] Last Admin: 05/05/23 09:49 Dose: 75 mg Documented By: LEANN Cyanocobalamin (Cyanocobalamin (Vitamin B-12) 1,000 Mcg/Ml Vial) 1,000 mcg IM Q30D [facility] Last Admin: 04/08/23 11:46 Dose: 1,000 mcg Documented By: ASHLEE Dextrose (Dextrose 50 % 25 Gm/50 Ml Syringe) 25 gm IVPUSH Q15M PRN; Protocol PRN Reason: per Hypoglycemia Standing Ord. Docusate Sodium (Docusate Sodium 100 Mg Capsule) 100 mg PO BID PRN PRN Reason: Constipation Enoxaparin Sodium (Enoxaparin Sodium 40 Mg/0.4 Ml Syringe) 40 mg SUBCUT Q24H [facility] Last Admin: 05/04/23 23:07 Dose: 40 mg Documented By: LAFLAMNona Fluticasone/Umeclidinium/Vilanterol (Fluticasone/Umeclidinium/Vilanterol 200/62.5/25 Blst.W.Dev) 1 puff INHALE RDAILY [facility] Last Admin: 05/05/23 07:48 Dose: Not Given Documented By: JASON Non-Admin Reason: Patient Asleep Folic Acid (Folic Acid 1 Mg Tablet) 1 mg PO DAILY [facility] Last Admin: 05/05/23 09:50 Dose: 1 mg Documented By: LEANN Furosemide (Furosemide 40 Mg Tablet) 40 mg PO DAILY [facility]; Protocol Last Admin: 05/05/23 09:49 Dose: 40 mg Documented By: LEANN Gabapentin (Gabapentin 100 Mg Capsule) 200 mg PO BID [facility] Last Admin: 05/05/23 09:49 Dose: 200 mg Documented By: LEANN Glucose (Glucose Gel 15 Gm Gel..Gram.) 15 gm PO Q15M PRN; Protocol PRN Reason: per Hypoglycemia Standing Ord. Insulin Human Lispro (Insulin Lispro 100 Unit/Ml 3 Ml Vial) 0 unit SUBCUT QIDACHS [facility]; Protocol Last Admin: 05/05/23 11:08 Dose: Not Given Documented By: LEANN Non-Admin Reason: No Insulin Coverage Lactulose (Lactulose 20 Gm/30 Ml Solution) 10 gm PO DAILY PRN PRN Reason: Constipation Melatonin (Melatonin 3 Mg Tablet) 6 mg PO BEDTIME PRN PRN Reason: Insomnia Last Admin: 04/22/23 20:50 Dose: 6 mg Documented By: KATRINA Metformin HCl (Metformin Hcl Er 500 Mg Tab.Er.24h) 500 mg PO DAILY@1800 [facility] Last Admin: 05/04/23 17:08 Dose: 500 mg Documented By: ALLEN Omeprazole (Omeprazole 20 Mg Capsule.Dr) 20 mg PO DAILY@0630 [facility] Last Admin: 05/05/23 06:40 Dose: Not Given Documented By: TRUPTI Non-Admin Reason: Patient Refused Ondansetron HCl (Ondansetron Hcl 4 Mg/2 Ml Vial) 4 mg IVPUSH Q8H PRN PRN Reason: Nausea and Vomiting Last Admin: 04/05/23 12:43 Dose: 4 mg Documented By: FERMIN Polyethylene Glycol (Polyethylene Glycol 3350 17 Gm Powd.Pack) 17 gm PO DAILY PRN PRN Reason: Constipation Quetiapine Fumarate (Quetiapine Fumarate 50 Mg Tablet) 50 mg PO TID [facility] Senna (Sennosides 8.6 Mg Tablet) 17.2 mg PO BEDTIME [facility] Last Admin: 05/04/23 23:08 Dose: 17.2 mg Documented By: TRUPTI Sertraline HCl (Sertraline Hcl 100 Mg Tablet) 100 mg PO DAILY [facility] Last Admin: 05/05/23 09:49 Dose: 100 mg Documented By: LEANN Sodium Chloride (0.9 % Sodium Chloride Flush 3 Ml Syringe) 3 ml IVFLUSH QSHIFT [facility] Last Admin: 05/05/23 09:00 Dose: Not Given Documented By: LEANN Non-Admin Reason: No Access Trazodone HCl (Trazodone Hcl 50 Mg Tablet) 50 mg PO BEDTIME PRN PRN Reason: insomnia Last Admin: 05/04/23 23:08 Dose: 50 mg Documented By: TRUPTI Labs 05/03/23 07:59 05/03/23 07:59 Labs: Laboratory Results - last 24 hr 05/04/23 05/04/23 05/05/23 15:57 20:05 07:21 POC Glucose 76 113 98 05/05/23 05/05/23 10:58 11:37 POC Glucose 120 H 116 H Assessment and Plan (1) Back abscess: Status: Acute (2) Lipoma of back: Status: Acute (3) Toxic metabolic encephalopathy: Status: Acute Plan 72-year-old male with a PMH significant for?CAD, [id number]-vjhalqhax diabetes type 2, who initially presented presents to the ED on 03/15/2023 from SNF after reportedly having hallucinations and being combative with staff. Pt was placed in physician observation in the ED until he became hypoxic and tested positive for COVID admitted to the medical floor for treatment and further evaluation of acute hypoxic respiratory failure in the setting of COVID infection and new awaiting Placement back lower Lumbar abcess s/p I and D, culture did not grow anything. Has completed course of Augmentin Acute hypoxic respiratory failure in the setting COVID 19 infection, resolved Finished course of dexamethasone and remdesivir baseline home oxygen 2 L Left mid back discomfort lipoma, no acute intervention. HTN continue coreg, lasix morbid obesity weight loss adivsed Fbh-yrllsfp-yeelwciac type 2 diabetes acceptable control on current therapies continue metformin lispro correctional scale adjust as needed Increased somnolence fluctuating work up including head CTH, CBC, BMP, UA all have been negative. Concern for oversdation with meds, Psych advises decreasing seroquel to 75 tid and if not improving to 50. Will lower it more to 50 tid for now Dehydration given IVF, Bun/Creating better, he is eating and drinking on his own Decrease urine output not drinking much encourage oral water, given some IVF and improved. check labs every week or every other week, mondays Full Code Lovenox requires continued hospital stay for safe disposition . Quality Stroke Does the patient have a stroke diagnosis?: No VTE Prior VTE?: No VTE Risk Level:: Medical - moderate - high VTE Device Contraindication: Treatment Not Indicated VTE Drug Contraindication: N/A - Med Ordered
--- NOTE | 2023-05-05 12:19 | MHC.SLORD ---
Speech Language Pathology Order Status: PAINTER ASSISTANT attempted to see patient during lunch. Patient agreeable to eat w/ PAINTER ASSISTANT, was repositioned in bed, and consistently fell back asleep w/ multiple attempts to give PO. RN reports patient had recently been given seroquel which may have made him drowsy. PAINTER ASSISTANT to re-attempt later in day if time allows. Otherwise, PAINTER ASSISTANT to see patient tomorrow.
--- NOTE | 2023-05-05 12:52 | MHC.CM.PN ---
pt remains medically cleared and no accepting SNF. Referrals updated this week. CM received a call from pt.'s daughter, Shirley, she talked about her father going home with services from [facility]. This CM had informed her last week that [facility] is not pursuing bringing him home (by getting equipment and arranging for [employer] assistance in the home) because they do not think it would be a safe DC. Shirley said she wants him to come home and that [facility] will need to provide care. I advised her to speak directly to [facility] about this. She informed me that the application to the [facility] has been submitted and they have a 8-12 month waiting period.
[2023-05-05 12:55] VITALS: TEMP 36.5
[2023-05-05 14:47] VITALS: BP 137/62; PULSE 60; RESP 20; TEMP 36.2; O2SAT 90
--- NOTE | 2023-05-05 16:05 | HO.WOUND ---
Wound Consult: Follow up 72yr old?M admitted to [facility] on 04/02 - See progress notes and H&P for detailed history.? Wound consult follow up for Sacrum/ buttock and Back site. Back site has orders in place from the Surgical Team - however todays assessment revelaed packing is not longer needed - there is very little depth and the incision is approximating well. TT to Dr. Ortiz with regards to new orders needed - he will followup on topical orders. Back - I&D site - healing well - little erythema noted - WNL - Depth of approximately 0.3cm - likely does not need packing at this time - would recommend foam dressing Recommendations: My recommendation would be for the following: Back: Cleanse and lightly irrigate with NS, pat dry. Apply skin prep to periwound, allow to dry. Cover with Foam dressing change every other day. 04/22/23 Buttocks Site - appears improving Bilateral buttock - no pressure injury noted - -no purple maroon tissue noted - resolved - no open lesions noted - the red area to the right buttock remains intact and blanchable - barrier cream and off loading in place - incontinence care was provided and barrier cream applied and turned with wedges and pillows in place - bariatric bed in use. Goals of Treatment: ? barrier cream to protect from friction and moisture - off load pressure Penis - resolved no injury noted 1. Turn and Reposition every 2 hours and as needed for patient comfort.? Use pillows or wedges to support off loading positions. Currently in Bariatric Bed. 2. Off Load all bony prominences with use of pillows and heel boots if needed.? Apply Preventative foams where needed. ? 3. Monitor for incontinence and moisture control, use barrier creams when needed for prevention and treatment. Do not use brief for incontinence control. 4. Provide adequate and supplemental nutrition.? 5. When applicable maintain blood glucose levels per Providers order. 6. Sacrum, scrotum and buttocks - Off Load Pressure - Cleanse with PH balance spray or wipes, pat dry. ?Apply thin layer of barrier cream to wound bed - only pat and dab no scrub and rub when soiling occurs. Reapply thin layer PRN after each episode of incontinence. Re-consult wound care Nurse for wound deterioration or wound changes.
[2023-05-05 16:20] LABS: Glucose, Whole Blood 111 mg/dL (60-115)
[2023-05-05] MEDS: metFORMIN HCl ER 500 MG TAB.ER.24H PO (17:48)
[2023-05-05 20:00] VITALS: BP 99/51; PULSE 54; RESP 18; TEMP 36.7; O2SAT 99
[2023-05-05] MEDS: Enoxaparin Sodium 40 MG/0.4 ML SYRINGE SUBCUT (20:51)
[2023-05-05] MEDS: Atorvastatin Calcium 40 MG TABLET PO (20:53)
[2023-05-05] MEDS: Melatonin 3 MG TABLET 6 MG PO (20:54)
[2023-05-05] MEDS: Sennosides 8.6 MG TABLET 17.2 MG PO (20:55)
[2023-05-05 21:01] LABS: Glucose, Whole Blood 93 mg/dL (60-115)
[2023-05-06 03:12] VITALS: BP 107/48; PULSE 66; RESP 20; TEMP 36.1; O2SAT 91
[2023-05-06] MEDS: Omeprazole 20 MG CAPSULE.DR PO (06:36)
[2023-05-06 07:10] VITALS: BP 113/56; PULSE 59; RESP 20; TEMP 36.6; O2SAT 95
[2023-05-06 07:17] LABS: Glucose, Whole Blood 105 mg/dL (60-115)
[2023-05-06] MEDS: Clopidogrel Bisulfate 75 MG TABLET PO (08:14)
[2023-05-06] MEDS: Furosemide 40 MG TABLET PO (08:14)
[2023-05-06] MEDS: Acetaminophen 325 MG TABLET 975 MG PO ×2 (08:14→21:15)
[2023-05-06] MEDS: Sertraline HCL 100 MG TABLET PO (08:14)
[2023-05-06] MEDS: Folic Acid 1 MG TABLET PO (08:15)
[2023-05-06] MEDS: Aspirin Enteric Coated 81 MG TABLET.DR PO (08:15)
[2023-05-06 08:43] VITALS: PULSE 64; RESP 20; O2SAT 94
[2023-05-06] MEDS: Fluticasone/Umeclidinium/Vilanterol 200/62.5/25 BLST.W.DEV 1 PUFF INHALE (08:43)
[2023-05-06 11:12] LABS: Glucose, Whole Blood 111 mg/dL (60-115)
--- NOTE | 2023-05-06 11:54 | P.PNIM_ITS ---
Subjective Subjective Date of Service: 05/06/23 Interval History: Seen and evaluated this morning and afternoon more alert and interactive this morning tolerating diet denies any complaints Review of Systems Review of Systems: Yes all other systems are reviewed and are negative Physical Exam 2 Vital Signs: Vital Signs: Last Vital Signs Temp 97.8 F 05/06/23 07:10 Pulse 64 05/06/23 08:43 Resp 20 05/06/23 08:43 BP 113/56 L 05/06/23 07:10 Pulse Ox 95 05/06/23 07:10 O2 Del Method Nasal Cannula 05/06/23 07:10 O2 Flow Rate 2 05/06/23 07:10 Oxygen Flow Rate 3 03/15/23 18:32 BMI result Body Mass Index 44.3 Const: Other: Constitutional : sleeping, not in distress Neck : Normal inspection, Supple Cardiovascular : RRR, no JVP, no lower extremity edema Respiratory : good bilateral air entry, no crackles, wheezes or rhonchi Gastrointestinal: soft, lax, Normal bowel sounds, Non tender Skin : Warm, Dry Neurological : Alert , disoriented about time and place, moving all extremities Objective Data Active Medications Acetaminophen (Acetaminophen 325 Mg Tablet) 975 mg PO TID [facility] Last Admin: 05/06/23 08:14 Dose: 975 mg Documented By: ALKA Al Hydroxide/Mg Hydroxide (Magnesium Hydrox/Alum Hydrox 30 Ml Oral.Susp) 30 ml PO Q6H PRN PRN Reason: dyspepsia Albuterol Sulfate (Albuterol Sulfate 90 Mcg 8 Gm Inhaler) 2 puff INHALE Q4H PRN PRN Reason: Wheezing Aspirin (Aspirin Enteric Coated 81 Mg Tablet.) 81 mg PO DAILY [facility] Last Admin: 05/06/23 08:15 Dose: 81 mg Documented By: ALKA Atorvastatin Calcium (Atorvastatin Calcium 40 Mg Tablet) 40 mg PO BEDTIME [facility] Last Admin: 05/05/23 20:53 Dose: 40 mg Documented By: KRYSTLE Carvedilol (Carvedilol 3.125 Mg Tablet) 3.125 mg PO BID [facility]; Protocol Last Admin: 05/06/23 07:57 Dose: Not Given Documented By: ALKA Non-Admin Reason: Decreased Heart Rate Clopidogrel Bisulfate (Clopidogrel Bisulfate 75 Mg Tablet) 75 mg PO DAILY [facility] Last Admin: 05/06/23 08:14 Dose: 75 mg Documented By: ALKA Cyanocobalamin (Cyanocobalamin (Vitamin B-12) 1,000 Mcg/Ml Vial) 1,000 mcg IM Q30D [facility] Last Admin: 04/08/23 11:46 Dose: 1,000 mcg Documented By: ASHLEE Dextrose (Dextrose 50 % 25 Gm/50 Ml Syringe) 25 gm IVPUSH Q15M PRN; Protocol PRN Reason: per Hypoglycemia Standing Ord. Docusate Sodium (Docusate Sodium 100 Mg Capsule) 100 mg PO BID PRN PRN Reason: Constipation Enoxaparin Sodium (Enoxaparin Sodium 40 Mg/0.4 Ml Syringe) 40 mg SUBCUT Q24H [facility] Last Admin: 05/05/23 20:51 Dose: 40 mg Documented By: KRYSTLE Fluticasone/Umeclidinium/Vilanterol (Fluticasone/Umeclidinium/Vilanterol 200/62.5/25 Blst.W.Dev) 1 puff INHALE RDAILY [facility] Last Admin: 05/06/23 08:43 Dose: 1 puff Documented By: JACKELYN Folic Acid (Folic Acid 1 Mg Tablet) 1 mg PO DAILY [facility] Last Admin: 05/06/23 08:15 Dose: 1 mg Documented By: ALKA Furosemide (Furosemide 40 Mg Tablet) 40 mg PO DAILY [facility]; Protocol Last Admin: 05/06/23 08:14 Dose: 40 mg Documented By: ALKA Gabapentin (Gabapentin 100 Mg Capsule) 200 mg PO BID [facility] Last Admin: 05/05/23 09:49 Dose: 200 mg Documented By: LEANN Glucose (Glucose Gel 15 Gm Gel..Gram.) 15 gm PO Q15M PRN; Protocol PRN Reason: per Hypoglycemia Standing Ord. Insulin Human Lispro (Insulin Lispro 100 Unit/Ml 3 Ml Vial) 0 unit SUBCUT QIDACHS [facility]; Protocol Last Admin: 05/06/23 11:32 Dose: Not Given Documented By: ALKA Non-Admin Reason: No Insulin Coverage Lactulose (Lactulose 20 Gm/30 Ml Solution) 10 gm PO DAILY PRN PRN Reason: Constipation Melatonin (Melatonin 3 Mg Tablet) 6 mg PO BEDTIME PRN PRN Reason: Insomnia Last Admin: 05/05/23 20:54 Dose: 6 mg Documented By: KRYSTLE Metformin HCl (Metformin Hcl Er 500 Mg Tab.Er.24h) 500 mg PO DAILY@1800 [facility] Last Admin: 05/05/23 17:48 Dose: 500 mg Documented By: LEANN Omeprazole (Omeprazole 20 Mg Capsule.Dr) 20 mg PO DAILY@0630 [facility] Last Admin: 05/06/23 06:36 Dose: 20 mg Documented By: KRYSTLE Ondansetron HCl (Ondansetron Hcl 4 Mg/2 Ml Vial) 4 mg IVPUSH Q8H PRN PRN Reason: Nausea and Vomiting Last Admin: 04/05/23 12:43 Dose: 4 mg Documented By: FERMIN Polyethylene Glycol (Polyethylene Glycol 3350 17 Gm Powd.Pack) 17 gm PO DAILY PRN PRN Reason: Constipation Quetiapine Fumarate (Quetiapine Fumarate 50 Mg Tablet) 50 mg PO TID [facility] Last Admin: 05/05/23 15:38 Dose: Not Given Documented By: LEANN Non-Admin Reason: pt very drowsy, aware, ok to hold med Quetiapine Fumarate (Quetiapine Fumarate 50 Mg Tablet) 50 mg PO Q8H PRN PRN Reason: anxiety/restlessness Senna (Sennosides 8.6 Mg Tablet) 17.2 mg PO BEDTIME [facility] Last Admin: 05/05/23 20:55 Dose: 17.2 mg Documented By: KRYSTLE Sertraline HCl (Sertraline Hcl 100 Mg Tablet) 100 mg PO DAILY [facility] Last Admin: 05/06/23 08:14 Dose: 100 mg Documented By: ALKA Sodium Chloride (0.9 % Sodium Chloride Flush 3 Ml Syringe) 3 ml IVFLUSH QSHIFT [facility] Last Admin: 05/06/23 07:37 Dose: Not Given Documented By: ALKA Non-Admin Reason: No Access Trazodone HCl (Trazodone Hcl 50 Mg Tablet) 50 mg PO BEDTIME PRN PRN Reason: insomnia Last Admin: 05/04/23 23:08 Dose: 50 mg Documented By: LAFLAMC Labs 05/03/23 07:59 05/03/23 07:59 Labs: Laboratory Results - last 24 hr 05/05/23 05/05/23 05/06/23 16:13 20:55 07:14 POC Glucose 111 93 105 05/06/23 11:08 POC Glucose 111 Assessment and Plan (1) Toxic metabolic encephalopathy: Status: Acute Plan 72-year-old male with a PMH significant for?CAD, clm-[id number]-prgnmbnug diabetes type 2, who initially presented presents to the ED on 03/15/2023 from SNF after reportedly having hallucinations and being combative with staff. Pt was placed in physician observation in the ED until he became hypoxic and tested positive for COVID admitted to the medical floor for treatment and further evaluation of acute hypoxic respiratory failure in the setting of COVID infection and new awaiting Placement Increased somnolence 2/2 Toxic metabolic encephalopathy work up including head CTH, CBC, BMP, UA all have been negative. more alert and interactive Concern for oversdation with meds, Hold Seroquel 50 tid, to use PRN doses for now and restart full dose afterward Psych input appreciated back lower Lumbar abcess s/p I and D, culture did not grow anything. Has completed course of Augmentin local wound care, no packing , foam dressing and change every otherday Acute hypoxic respiratory failure in the setting COVID 19 infection, resolved Finished course of dexamethasone and remdesivir baseline home oxygen 2 L Left mid back discomfort lipoma, no acute intervention. HTN continue coreg, lasix morbid obesity weight loss adivsed Wtd-bexqpmo-vccnruyta type 2 diabetes acceptable control on current therapies continue metformin lispro correctional scale adjust as needed Dehydration Post IVF, Bun/Creating better, he is eating and drinking on his own check labs every week or every other week, mondays Full Code Lovenox requires continued hospital stay for safe disposition and medication management for Somnolence and altered mentation . Quality Stroke Does the patient have a stroke diagnosis?: No VTE Prior VTE?: No VTE Risk Level:: Medical - moderate - high VTE Device Contraindication: Treatment Not Indicated VTE Drug Contraindication: N/A - Med Ordered
[2023-05-06 15:32] VITALS: BP 122/59; PULSE 61; RESP 16; TEMP 36.3; O2SAT 93
--- NOTE | 2023-05-06 15:56 | MHC.CM.PN ---
CM met with pt.'s SO on 05/05/23, she was feeding pt his lunch. She discussed situation of wanting pt to go home, CM explained that services provided at home are limited in hours, she cried several times during conversation and said that she is having a nervous breakdown, and that some days are better than others. CM discussed that she may need to supplement care with private services, and she said she will think about this. Pt requires 2-3 people to assist with care due to his lack of mobility and care needs. CM discussed this with SO in terms of availability of assistance in the home, she understood and also said that she had heart surgery last year.
[2023-05-06 16:10] LABS: Glucose, Whole Blood 125 mg/dL (60-115)
--- NOTE | 2023-05-06 17:32 | MHC.SLORD ---
Speech Language Pathology Order Status: Patient was sleeping soundly at time of visit today, did not attempt to feed or po trials. MOSAIC TILER will continue to follow.
[2023-05-06 19:24] VITALS: BP 141/64; PULSE 59; RESP 18; TEMP 36.1; O2SAT 95
[2023-05-06 20:26] LABS: Glucose, Whole Blood 154 mg/dL (60-115)
[2023-05-06] MEDS: carvediloL 3.125 MG TABLET PO (21:15)
[2023-05-06] MEDS: Atorvastatin Calcium 40 MG TABLET PO (21:15)
[2023-05-06] MEDS: Sennosides 8.6 MG TABLET 17.2 MG PO (21:15)
[2023-05-06] MEDS: Enoxaparin Sodium 40 MG/0.4 ML SYRINGE SUBCUT (21:15)
[2023-05-06] MEDS: Insulin Lispro 100 UNIT/ML 3 ML VIAL SUBCUT (21:16)
[2023-05-07 03:47] VITALS: BP 127/60; PULSE 56; RESP 20; TEMP 37.1; O2SAT 98
[2023-05-07] MEDS: Omeprazole 20 MG CAPSULE.DR PO (06:04)
[2023-05-07 07:12] LABS: Hemoglobin 11.7 g/dl (14.0-18.0); Mean Corpuscular HGB Conc 33.4 g/dl (31.0-36.0); Mean Corpuscular Hemoglobin 34.3 pg (27.0-33.0); Mean Corpuscular Volume 102.6 fL (80.0-98.0); Mean Platelet Volume 9.1 fL (9.4-12.4); Platelet Count 192 X10*3/uL (160-400); Red Blood Count 3.41 X10*6/uL (4.60-5.80); Red Cell Distribution Width 16.3 % (11.0-16.0); White Blood Count 8.5 X10*3/uL (4.8-10.8)
[2023-05-07 07:32] LABS: Glucose, Whole Blood 77 mg/dL (60-115)
[2023-05-07 07:34] LABS: Anion Gap 10 (12-20); Blood Urea Nitrogen 20 mg/dL (9-16); Calcium 8.6 mg/dL (8.4-10.2); Carbon Dioxide 33 mmol/L (22-29); Chloride 103 mmol/L (96-108); Creatinine Clr Calc Pharmacy 86.7; Estimated Glomerular Filt Rate > 60; Glucose Random 84 mg/dL (60-115); Potassium 4.1 mmol/L (3.3-5.1); Sodium 142 mmol/L (135-145)
[2023-05-07 08:15] VITALS: PULSE 56; RESP 20; O2SAT 94
[2023-05-07] MEDS: Fluticasone/Umeclidinium/Vilanterol 200/62.5/25 BLST.W.DEV 1 PUFF INHALE (08:15)
[2023-05-07] MEDS: Acetaminophen 325 MG TABLET 975 MG PO ×3 (09:34→22:00)
[2023-05-07 09:35] VITALS: BP 117/61; PULSE 67
[2023-05-07] MEDS: Furosemide 40 MG TABLET PO (09:35)
[2023-05-07] MEDS: Folic Acid 1 MG TABLET PO (09:35)
[2023-05-07] MEDS: QUEtiapine Fumarate 25 MG TABLET PO ×3 (09:35→22:01)
[2023-05-07] MEDS: Aspirin Enteric Coated 81 MG TABLET.DR PO (09:35)
[2023-05-07] MEDS: Sertraline HCL 100 MG TABLET PO (09:35)
[2023-05-07] MEDS: carvediloL 3.125 MG TABLET PO ×2 (09:35→22:00)
[2023-05-07] MEDS: Clopidogrel Bisulfate 75 MG TABLET PO (09:37)
--- NOTE | 2023-05-07 09:52 | HO.PM.IMPN ---
Subjective Subjective Date of Service: 05/07/23 Interval History: Seen and evaluated this morning more alert and interactive tolerating diet, having bowel motions denies any complaints Review of Systems Review of Systems: Yes all other systems are reviewed and are negative Physical Exam Vital Signs: Vital Signs: Last Vital Signs Temp 98.7 F 05/07/23 03:47 Pulse 56 05/07/23 08:15 Resp 20 05/07/23 08:15 BP 127/60 05/07/23 03:47 Pulse Ox 98 05/07/23 03:47 O2 Del Method Nasal Cannula 05/07/23 03:47 O2 Flow Rate 2 05/07/23 03:47 Oxygen Flow Rate 3 03/15/23 18:32 BMI result Body Mass Index 44.3 Const: Other: Constitutional : alert, interactive, not in distress Neck : Normal inspection, Supple Cardiovascular : RRR, no JVP, no lower extremity edema Respiratory : good bilateral air entry, no crackles, wheezes or rhonchi Gastrointestinal: soft, lax, Normal bowel sounds, Non tender Skin : Warm, Dry Neurological : Alert , oriented x3, moving all extremities Objective Data Active Medications Acetaminophen (Acetaminophen 325 Mg Tablet) 975 mg PO TID [facility] Last Admin: 05/07/23 09:34 Dose: 975 mg Documented By: LEANN Al Hydroxide/Mg Hydroxide (Magnesium Hydrox/Alum Hydrox 30 Ml Oral.Susp) 30 ml PO Q6H PRN PRN Reason: dyspepsia Albuterol Sulfate (Albuterol Sulfate 90 Mcg 8 Gm Inhaler) 2 puff INHALE Q4H PRN PRN Reason: Wheezing Aspirin (Aspirin Enteric Coated 81 Mg Tablet.) 81 mg PO DAILY [facility] Last Admin: 05/07/23 09:35 Dose: 81 mg Documented By: LEANN Atorvastatin Calcium (Atorvastatin Calcium 40 Mg Tablet) 40 mg PO BEDTIME [facility] Last Admin: 05/06/23 21:15 Dose: 40 mg Documented By: IBETH Carvedilol (Carvedilol 3.125 Mg Tablet) 3.125 mg PO BID [facility]; Protocol Last Admin: 05/07/23 09:35 Dose: 3.125 mg Documented By: LEANN Clopidogrel Bisulfate (Clopidogrel Bisulfate 75 Mg Tablet) 75 mg PO DAILY [facility] Last Admin: 05/07/23 09:37 Dose: 75 mg Documented By: LEANN Cyanocobalamin (Cyanocobalamin (Vitamin B-12) 1,000 Mcg/Ml Vial) 1,000 mcg IM Q30D [facility] Last Admin: 04/08/23 11:46 Dose: 1,000 mcg Documented By: ASHLEE Dextrose (Dextrose 50 % 25 Gm/50 Ml Syringe) 25 gm IVPUSH Q15M PRN; Protocol PRN Reason: per Hypoglycemia Standing Ord. Docusate Sodium (Docusate Sodium 100 Mg Capsule) 100 mg PO BID PRN PRN Reason: Constipation Enoxaparin Sodium (Enoxaparin Sodium 40 Mg/0.4 Ml Syringe) 40 mg SUBCUT Q24H [facility] Last Admin: 05/06/23 21:15 Dose: 40 mg Documented By: IBETH Fluticasone/Umeclidinium/Vilanterol (Fluticasone/Umeclidinium/Vilanterol 200/62.5/25 Blst.W.Dev) 1 puff INHALE RDAILY [facility] Last Admin: 05/07/23 08:15 Dose: 1 puff Documented By: JACKELYN Folic Acid (Folic Acid 1 Mg Tablet) 1 mg PO DAILY [facility] Last Admin: 05/07/23 09:35 Dose: 1 mg Documented By: LEANN Furosemide (Furosemide 40 Mg Tablet) 40 mg PO DAILY [facility]; Protocol Last Admin: 05/07/23 09:35 Dose: 40 mg Documented By: LEANN Gabapentin (Gabapentin 100 Mg Capsule) 200 mg PO BID [facility] Last Admin: 05/05/23 09:49 Dose: 200 mg Documented By: LEANN Glucose (Glucose Gel 15 Gm Gel..Gram.) 15 gm PO Q15M PRN; Protocol PRN Reason: per Hypoglycemia Standing Ord. Insulin Human Lispro (Insulin Lispro 100 Unit/Ml 3 Ml Vial) 0 unit SUBCUT QIDACHS [facility]; Protocol Last Admin: 05/07/23 07:52 Dose: Not Given Documented By: LEANN Non-Admin Reason: No Insulin Coverage Lactulose (Lactulose 20 Gm/30 Ml Solution) 10 gm PO DAILY PRN PRN Reason: Constipation Melatonin (Melatonin 3 Mg Tablet) 6 mg PO BEDTIME PRN PRN Reason: Insomnia Last Admin: 05/05/23 20:54 Dose: 6 mg Documented By: KRYSTLE Metformin HCl (Metformin Hcl Er 500 Mg Tab.Er.24h) 500 mg PO DAILY@1800 [facility] Last Admin: 05/06/23 17:06 Dose: Not Given Documented By: ALKA Non-Admin Reason: Patient Refused Omeprazole (Omeprazole 20 Mg Capsule.) 20 mg PO DAILY@0630 [facility] Last Admin: 05/07/23 06:04 Dose: 20 mg Documented By: ASHVIN Ondansetron HCl (Ondansetron Hcl 4 Mg/2 Ml Vial) 4 mg IVPUSH Q8H PRN PRN Reason: Nausea and Vomiting Last Admin: 04/05/23 12:43 Dose: 4 mg Documented By: FERMIN Polyethylene Glycol (Polyethylene Glycol 3350 17 Gm Powd.Pack) 17 gm PO DAILY PRN PRN Reason: Constipation Quetiapine Fumarate (Quetiapine Fumarate 50 Mg Tablet) 50 mg PO Q8H PRN PRN Reason: anxiety/restlessness Quetiapine Fumarate (Quetiapine Fumarate 25 Mg Tablet) 25 mg PO TID [facility] Last Admin: 05/07/23 09:35 Dose: 25 mg Documented By: LEANN Senna (Sennosides 8.6 Mg Tablet) 17.2 mg PO BEDTIME [facility] Last Admin: 05/06/23 21:15 Dose: 17.2 mg Documented By: IBETH Sertraline HCl (Sertraline Hcl 100 Mg Tablet) 100 mg PO DAILY [facility] Last Admin: 05/07/23 09:35 Dose: 100 mg Documented By: LEANN Sodium Chloride (0.9 % Sodium Chloride Flush 3 Ml Syringe) 3 ml IVFLUSH QSHIFT [facility] Last Admin: 05/07/23 09:34 Dose: Not Given Documented By: LEANN Non-Admin Reason: No Access Trazodone HCl (Trazodone Hcl 50 Mg Tablet) 50 mg PO BEDTIME PRN PRN Reason: insomnia Last Admin: 05/04/23 23:08 Dose: 50 mg Documented By: MARIAMC Labs 05/07/23 06:44 05/07/23 06:44 Labs: Laboratory Results - last 24 hr 05/06/23 05/06/23 05/06/23 11:08 15:36 20:21 MCV MCH MCHC RDW Plt Count MPV Absolute Nucleated RBC Nucleated RBC % (auto) Anion Gap Estim Creat Clear Calc Estimated GFR POC Glucose 111 125 H 154 H Random Glucose Calcium 05/07/23 05/07/23 06:44 07:13 MCV 102.6 H MCH 34.3 H MCHC 33.4 RDW 16.3 H Plt Count 192 MPV 9.1 L Absolute Nucleated RBC 0.000 Nucleated RBC % (auto) 0.0 Anion Gap 10 L Estim Creat Clear Calc 86.7 Estimated GFR > 60 POC Glucose 77 Random Glucose 84 Calcium 8.6 Assessment and Plan (1) Toxic metabolic encephalopathy: Status: Acute (2) Aggressive behavior: Status: Acute (3) Major neurocognitive disorder: Status: Acute Plan 72-year-old male with a PMH significant for?CAD, [id number] diabetes type 2, who initially presented presents to the ED on 03/15/2023 from SNF after reportedly having hallucinations and being combative with staff. Pt was placed in physician observation in the ED until he became hypoxic and tested positive for COVID admitted to the medical floor for treatment and further evaluation of acute hypoxic respiratory failure in the setting of COVID infection and new awaiting Placement Increased somnolence 2/2 Toxic metabolic encephalopathy work up including head CTH, CBC, BMP, UA all have been negative. more alert and interactive Concern for oversdation with meds, Restart Seroquel 25 mg tid PRN Seroquel 50 tid if needed Psych input appreciated back lower Lumbar abcess s/p I and D, culture did not grow anything. Has completed course of Augmentin local wound care, no packing , foam dressing and change every otherday Acute hypoxic respiratory failure in the setting COVID 19 infection, resolved Finished course of dexamethasone and remdesivir baseline home oxygen 2 L Left mid back discomfort lipoma, no acute intervention. HTN continue coreg, lasix morbid obesity weight loss adivsed [id number] type 2 diabetes acceptable control on current therapies continue metformin lispro correctional scale adjust as needed Dehydration Post IVF, Bun/Creating better, he is eating and drinking on his own check labs every week or every other week, mondays Full Code Lovenox requires continued hospital stay for safe disposition and medication management for Somnolence and altered mentation . Quality Stroke Does the patient have a stroke diagnosis?: No VTE Prior VTE?: No VTE Risk Level:: Medical - moderate - high VTE Device Contraindication: Treatment Not Indicated VTE Drug Contraindication: N/A - Med Ordered
[2023-05-07 11:31] LABS: Glucose, Whole Blood 129 mg/dL (60-115)
--- NOTE | 2023-05-07 14:54 | MHC.CM.PN ---
Pt remains medically cleared for D/C, but unable to due to no bed offers. Referral updated, and updated clinicals [facility].
[2023-05-07 15:22] VITALS: BP 130/60; PULSE 60; RESP 18; TEMP 36.2; O2SAT 96
[2023-05-07 15:31] LABS: Glucose, Whole Blood 136 mg/dL (60-115)
--- NOTE | 2023-05-07 16:20 | MHC.SL.SWA ---
Speech Pathologist Impression: Risk of aspiration, oropharyngeal dysphagia Risk of Aspiration Due to: Reduced Cognition Dysphasia Diet Status: Recommend continue on Chopped/Advanced diet (NDD3) to assure softer foods that a pre-cut, thin liquids, and pills whole with liquid. Patient to be permitted soft sandwiches (i.e. tuna, egg salad, chicken salad, pb&j)-Kitchen staff and nursing notified. Patient requires 1-1 assistance at all meals. Liquid Consistency and Strategies for Safe Swallow: Liquid Intake Recommendation: Thin Liquid Intake Strategies: Small Sips Solid Food Consistency: Dietary Recommendations: Chopped/Advanced (NDD3) Additional Modifications to Solid Foods: Soft sandwiches and muffins ok with nursing or [employer] supervision. Oral Medication Intake: Whole with Liquid Please contact the pharmacy regarding appropriate crushable or liquid drug formulations that are available whenever modified delivery is recommended. Compensatory Strategies and Precautions to be Taken for Safe Swallow: Sitting Upright (90 deg) Double Swallow Small Bites and Sips Alternate Liquids/Solids Rate of Ingestion Change Oral Check Avoid Specific Foods Supervision While Eating and Drinking for Safe Swallow: Total Assistance (1:1) Foods to Avoid: Dry, tough to chew, sticky foods, large pieces of uncut meat. Swallowing Recommended Treatments: Compens. Strategy Educat. Recommendation for Speech: Inpatient Speech Therapy Comment: 1:1 assistance feeding Frequency/Duration: M-F during hospitalization Date Range for Service Req: Timeline to reassess: Cartography Technician Clinican/Clinical Fellow: No Supervisory Statement: I have reviewed and agree with the student/clinical fellow's documentation: N/A Speech Language Pathologist: Peace Shepherd M.A., CCC-[employer]
[2023-05-07] MEDS: metFORMIN HCl ER 500 MG TAB.ER.24H PO (17:33)
[2023-05-07 19:56] VITALS: BP 149/74; PULSE 83; RESP 17; TEMP 36.8; O2SAT 96
[2023-05-07 20:32] LABS: Glucose, Whole Blood 116 mg/dL (60-115)
[2023-05-07] MEDS: Sennosides 8.6 MG TABLET 17.2 MG PO (22:00)
[2023-05-07] MEDS: Enoxaparin Sodium 40 MG/0.4 ML SYRINGE SUBCUT (22:00)
[2023-05-07] MEDS: Atorvastatin Calcium 40 MG TABLET PO (22:00)
[2023-05-08 04:00] VITALS: BP 135/60; PULSE 59; RESP 16; TEMP 36.2; O2SAT 97
[2023-05-08] MEDS: Omeprazole 20 MG CAPSULE.DR PO (06:13)
[2023-05-08 07:20] LABS: Glucose, Whole Blood 85 mg/dL (60-115)
[2023-05-08 07:35] VITALS: BP 128/60; PULSE 61; RESP 20; TEMP 36.1; O2SAT 96
[2023-05-08] MEDS: Fluticasone/Umeclidinium/Vilanterol 200/62.5/25 BLST.W.DEV 1 PUFF INHALE (08:11)
[2023-05-08 08:13] VITALS: PULSE 62; RESP 16; O2SAT 94
[2023-05-08] MEDS: carvediloL 3.125 MG TABLET PO ×2 (08:46→20:16)
[2023-05-08] MEDS: Sertraline HCL 100 MG TABLET PO (08:46)
[2023-05-08] MEDS: Folic Acid 1 MG TABLET PO (08:46)
[2023-05-08] MEDS: Aspirin Enteric Coated 81 MG TABLET.DR PO (08:46)
[2023-05-08] MEDS: Acetaminophen 325 MG TABLET 975 MG PO ×2 (08:46→14:20)
[2023-05-08] MEDS: Furosemide 40 MG TABLET PO (08:46)
[2023-05-08] MEDS: Clopidogrel Bisulfate 75 MG TABLET PO (08:46)
[2023-05-08] MEDS: QUEtiapine Fumarate 25 MG TABLET PO ×3 (08:46→20:17)
--- NOTE | 2023-05-08 10:27 | HO.PM.IMPN ---
Subjective Subjective Date of Service: 05/08/23 Interval History: Seen and evaluated this morning alert and interactive denies any complaints Review of Systems Review of Systems: Yes all other systems are reviewed and are negative Physical Exam Vital Signs: Vital Signs: Last Vital Signs Temp 97.0 F 05/08/23 07:35 Pulse 62 05/08/23 08:13 Resp 16 05/08/23 08:13 BP 128/60 05/08/23 07:35 Pulse Ox 96 05/08/23 07:35 O2 Del Method Nasal Cannula 05/08/23 07:35 O2 Flow Rate 2 05/08/23 07:35 Oxygen Flow Rate 3 03/15/23 18:32 BMI result Body Mass Index 44.3 Const: Other: Constitutional : alert, interactive, not in distress Neck : Normal inspection, Supple Cardiovascular : RRR, no JVP, no lower extremity edema Respiratory : good bilateral air entry, no crackles, wheezes or rhonchi Gastrointestinal: soft, lax, Normal bowel sounds, Non tender Skin : Warm, Dry Neurological : Alert , oriented x3, moving all extremities Objective Data Active Medications Acetaminophen (Acetaminophen 325 Mg Tablet) 975 mg PO TID [facility] Last Admin: 05/08/23 08:46 Dose: 975 mg Documented By: ALEXA Al Hydroxide/Mg Hydroxide (Magnesium Hydrox/Alum Hydrox 30 Ml Oral.Susp) 30 ml PO Q6H PRN PRN Reason: dyspepsia Albuterol Sulfate (Albuterol Sulfate 90 Mcg 8 Gm Inhaler) 2 puff INHALE Q4H PRN PRN Reason: Wheezing Aspirin (Aspirin Enteric Coated 81 Mg Tablet.) 81 mg PO DAILY [facility] Last Admin: 05/08/23 08:46 Dose: 81 mg Documented By: ALEXA Atorvastatin Calcium (Atorvastatin Calcium 40 Mg Tablet) 40 mg PO BEDTIME [facility] Last Admin: 05/07/23 22:00 Dose: 40 mg Documented By: SHERRON Carvedilol (Carvedilol 3.125 Mg Tablet) 3.125 mg PO BID [facility]; Protocol Last Admin: 05/08/23 08:46 Dose: 3.125 mg Documented By: ALEXA Clopidogrel Bisulfate (Clopidogrel Bisulfate 75 Mg Tablet) 75 mg PO DAILY [facility] Last Admin: 05/08/23 08:46 Dose: 75 mg Documented By: ALEXA Cyanocobalamin (Cyanocobalamin (Vitamin B-12) 1,000 Mcg/Ml Vial) 1,000 mcg IM Q30D [facility] Last Admin: 05/08/23 09:05 Dose: Not Given Documented By: ALEXA Non-Admin Reason: Patient Refused Dextrose (Dextrose 50 % 25 Gm/50 Ml Syringe) 25 gm IVPUSH Q15M PRN; Protocol PRN Reason: per Hypoglycemia Standing Ord. Docusate Sodium (Docusate Sodium 100 Mg Capsule) 100 mg PO BID PRN PRN Reason: Constipation Enoxaparin Sodium (Enoxaparin Sodium 40 Mg/0.4 Ml Syringe) 40 mg SUBCUT Q24H [facility] Last Admin: 05/07/23 22:00 Dose: 40 mg Documented By: SHERRON Fluticasone/Umeclidinium/Vilanterol (Fluticasone/Umeclidinium/Vilanterol 200/62.5/25 Blst.W.Dev) 1 puff INHALE RDAILY [facility] Last Admin: 05/08/23 08:11 Dose: 1 puff Documented By: JASON Folic Acid (Folic Acid 1 Mg Tablet) 1 mg PO DAILY [facility] Last Admin: 05/08/23 08:46 Dose: 1 mg Documented By: ALEXA Furosemide (Furosemide 40 Mg Tablet) 40 mg PO DAILY [facility]; Protocol Last Admin: 05/08/23 08:46 Dose: 40 mg Documented By: ALEXA Gabapentin (Gabapentin 100 Mg Capsule) 200 mg PO BID [facility] Last Admin: 05/05/23 09:49 Dose: 200 mg Documented By: LEANN Glucose (Glucose Gel 15 Gm Gel..Gram.) 15 gm PO Q15M PRN; Protocol PRN Reason: per Hypoglycemia Standing Ord. Insulin Human Lispro (Insulin Lispro 100 Unit/Ml 3 Ml Vial) 0 unit SUBCUT QIDACHS [facility]; Protocol Last Admin: 05/08/23 07:21 Dose: Not Given Documented By: ALEXA Non-Admin Reason: No Insulin Coverage Lactulose (Lactulose 20 Gm/30 Ml Solution) 10 gm PO DAILY PRN PRN Reason: Constipation Melatonin (Melatonin 3 Mg Tablet) 6 mg PO BEDTIME PRN PRN Reason: Insomnia Last Admin: 05/05/23 20:54 Dose: 6 mg Documented By: KRYSTLE Metformin HCl (Metformin Hcl Er 500 Mg Tab.Er.24h) 500 mg PO DAILY@1800 [facility] Last Admin: 05/07/23 17:33 Dose: 500 mg Documented By: LEANN Omeprazole (Omeprazole 20 Mg Capsule.Dr) 20 mg PO DAILY@0630 [facility] Last Admin: 05/08/23 06:13 Dose: 20 mg Documented By: SHERRON Ondansetron HCl (Ondansetron Hcl 4 Mg/2 Ml Vial) 4 mg IVPUSH Q8H PRN PRN Reason: Nausea and Vomiting Last Admin: 04/05/23 12:43 Dose: 4 mg Documented By: FERMIN Polyethylene Glycol (Polyethylene Glycol 3350 17 Gm Powd.Pack) 17 gm PO DAILY PRN PRN Reason: Constipation Quetiapine Fumarate (Quetiapine Fumarate 50 Mg Tablet) 50 mg PO Q8H PRN PRN Reason: anxiety/restlessness Quetiapine Fumarate (Quetiapine Fumarate 25 Mg Tablet) 25 mg PO TID [facility] Last Admin: 05/08/23 08:46 Dose: 25 mg Documented By: ALEXA Senna (Sennosides 8.6 Mg Tablet) 17.2 mg PO BEDTIME [facility] Last Admin: 05/07/23 22:00 Dose: 17.2 mg Documented By: SHERRON Sertraline HCl (Sertraline Hcl 100 Mg Tablet) 100 mg PO DAILY [facility] Last Admin: 05/08/23 08:46 Dose: 100 mg Documented By: ALEXA Sodium Chloride (0.9 % Sodium Chloride Flush 3 Ml Syringe) 3 ml IVFLUSH QSHIFT [facility] Last Admin: 05/08/23 08:07 Dose: Not Given Documented By: ALEXA Non-Admin Reason: No Access Trazodone HCl (Trazodone Hcl 50 Mg Tablet) 50 mg PO BEDTIME PRN PRN Reason: insomnia Last Admin: 05/04/23 23:08 Dose: 50 mg Documented By: LAFLAMC Labs 05/07/23 06:44 05/07/23 06:44 Labs: Laboratory Results - last 24 hr 05/07/23 05/07/23 05/07/23 11:19 15:28 20:12 POC Glucose 129 H 136 H 116 H 05/08/23 07:16 POC Glucose 85 Assessment and Plan (1) Toxic metabolic encephalopathy: Status: Acute Plan 72-year-old male with a PMH significant for?CAD, [id number] diabetes type 2, who initially presented presents to the ED on 03/15/2023 from SNF after reportedly having hallucinations and being combative with staff. Pt was placed in physician observation in the ED until he became hypoxic and tested positive for COVID admitted to the medical floor for treatment and further evaluation of acute hypoxic respiratory failure in the setting of COVID infection and new awaiting Placement Increased somnolence 2/2 Toxic metabolic encephalopathy work up including head CTH, CBC, BMP, UA all have been negative. more alert and interactive Concern for oversdation with meds, Lowered Seroquel to 25 mg tid PRN Seroquel 50 tid if needed Psych input appreciated back lower Lumbar abcess s/p I and D, culture did not grow anything. Has completed course of Augmentin local wound care, no packing , foam dressing and change every otherday Acute hypoxic respiratory failure in the setting COVID 19 infection, resolved Finished course of dexamethasone and remdesivir baseline home oxygen 2 L Left mid back discomfort lipoma, no acute intervention. HTN continue coreg, lasix morbid obesity weight loss adivsed Hcc-ctdnybe-opdajtzas type 2 diabetes acceptable control on current therapies continue metformin lispro correctional scale adjust as needed Dehydration Post IVF, Bun/Creating better, he is eating and drinking on his own check labs every week or every other week, mondays Full Code Lovenox requires continued hospital stay for safe disposition and medication management for Somnolence and altered mentation . Quality Stroke Does the patient have a stroke diagnosis?: No VTE Prior VTE?: No VTE Risk Level:: Medical - moderate - high VTE Device Contraindication: Treatment Not Indicated VTE Drug Contraindication: N/A - Med Ordered
[2023-05-08 11:09] LABS: Glucose, Whole Blood 130 mg/dL (60-115)
[2023-05-08 15:30] VITALS: BP 126/60; PULSE 72; RESP 16; TEMP 36.4; O2SAT 97
[2023-05-08 16:33] LABS: Glucose, Whole Blood 120 mg/dL (60-115)
[2023-05-08] MEDS: metFORMIN HCl ER 500 MG TAB.ER.24H PO (17:37)
[2023-05-08 19:28] VITALS: BP 119/58; PULSE 76; RESP 16; TEMP 36.6; O2SAT 94
[2023-05-08 20:03] LABS: Glucose, Whole Blood 145 mg/dL (60-115)
[2023-05-08] MEDS: Sennosides 8.6 MG TABLET 17.2 MG PO (20:16)
[2023-05-08] MEDS: Enoxaparin Sodium 40 MG/0.4 ML SYRINGE SUBCUT (20:16)
[2023-05-08] MEDS: traZODone HCL 50 MG TABLET PO (20:16)
[2023-05-08] MEDS: Atorvastatin Calcium 40 MG TABLET PO (20:16)
[2023-05-09 04:00] VITALS: BP 118/56; PULSE 66; RESP 16; TEMP 36; O2SAT 97
[2023-05-09] MEDS: Omeprazole 20 MG CAPSULE.DR PO (05:29)
[2023-05-09 07:27] LABS: Glucose, Whole Blood 103 mg/dL (60-115)
[2023-05-09] MEDS: Fluticasone/Umeclidinium/Vilanterol 200/62.5/25 BLST.W.DEV 1 PUFF INHALE (07:29)
[2023-05-09 07:32] VITALS: PULSE 67; RESP 16; O2SAT 95
[2023-05-09 07:33] VITALS: BP 149/68; PULSE 94; RESP 14; TEMP 36.6; O2SAT 98
[2023-05-09] MEDS: Furosemide 40 MG TABLET PO (08:54)
[2023-05-09] MEDS: Acetaminophen 325 MG TABLET 975 MG PO ×2 (08:54→14:32)
[2023-05-09] MEDS: Folic Acid 1 MG TABLET PO (08:54)
[2023-05-09] MEDS: carvediloL 3.125 MG TABLET PO ×2 (08:55→21:40)
[2023-05-09] MEDS: Clopidogrel Bisulfate 75 MG TABLET PO (08:55)
[2023-05-09] MEDS: QUEtiapine Fumarate 25 MG TABLET PO ×3 (08:55→21:39)
[2023-05-09] MEDS: Aspirin Enteric Coated 81 MG TABLET.DR PO (08:55)
[2023-05-09] MEDS: Sertraline HCL 100 MG TABLET PO (08:55)
--- NOTE | 2023-05-09 09:46 | HO.PM.IMPN ---
Subjective Subjective Date of Service: 05/09/23 Interval History: Seen and evaluated this morning alert and interactive denies any complaints Review of Systems Review of Systems: Yes all other systems are reviewed and are negative Physical Exam Vital Signs: Vital Signs: Last Vital Signs Temp 97.8 F 05/09/23 07:33 Pulse 94 05/09/23 07:33 Resp 14 05/09/23 07:33 BP 149/68 H 05/09/23 07:33 Pulse Ox 98 05/09/23 07:33 O2 Del Method Room Air 05/09/23 07:33 O2 Flow Rate 2 05/09/23 04:00 Oxygen Flow Rate 3 03/15/23 18:32 BMI result Body Mass Index 44.3 Const: Other: Constitutional : alert, interactive, not in distress Neck : Normal inspection, Supple Cardiovascular : RRR, no JVP, no lower extremity edema Respiratory : good bilateral air entry, no crackles, wheezes or rhonchi Gastrointestinal: soft, lax, Normal bowel sounds, Non tender Skin : Warm, Dry Neurological : Alert , oriented x3, moving all extremities Objective Data Active Medications Acetaminophen (Acetaminophen 325 Mg Tablet) 975 mg PO TID [facility] Last Admin: 05/09/23 08:54 Dose: 975 mg Documented By: KENNEDI Al Hydroxide/Mg Hydroxide (Magnesium Hydrox/Alum Hydrox 30 Ml Oral.Susp) 30 ml PO Q6H PRN PRN Reason: dyspepsia Albuterol Sulfate (Albuterol Sulfate 90 Mcg 8 Gm Inhaler) 2 puff INHALE Q4H PRN PRN Reason: Wheezing Aspirin (Aspirin Enteric Coated 81 Mg Tablet.) 81 mg PO DAILY [facility] Last Admin: 05/09/23 08:55 Dose: 81 mg Documented By: KENNEDI Atorvastatin Calcium (Atorvastatin Calcium 40 Mg Tablet) 40 mg PO BEDTIME [facility] Last Admin: 05/08/23 20:16 Dose: 40 mg Documented By: CASTILAnita Carvedilol (Carvedilol 3.125 Mg Tablet) 3.125 mg PO BID [facility]; Protocol Last Admin: 05/09/23 08:55 Dose: 3.125 mg Documented By: KENNEDI Clopidogrel Bisulfate (Clopidogrel Bisulfate 75 Mg Tablet) 75 mg PO DAILY [facility] Last Admin: 05/09/23 08:55 Dose: 75 mg Documented By: KENNEDI Cyanocobalamin (Cyanocobalamin (Vitamin B-12) 1,000 Mcg/Ml Vial) 1,000 mcg IM Q30D [facility] Last Admin: 05/08/23 09:05 Dose: Not Given Documented By: ALEXA Non-Admin Reason: Patient Refused Dextrose (Dextrose 50 % 25 Gm/50 Ml Syringe) 25 gm IVPUSH Q15M PRN; Protocol PRN Reason: per Hypoglycemia Standing Ord. Docusate Sodium (Docusate Sodium 100 Mg Capsule) 100 mg PO BID PRN PRN Reason: Constipation Enoxaparin Sodium (Enoxaparin Sodium 40 Mg/0.4 Ml Syringe) 40 mg SUBCUT Q24H [facility] Last Admin: 05/08/23 20:16 Dose: 40 mg Documented By: CASTILAnita Fluticasone/Umeclidinium/Vilanterol (Fluticasone/Umeclidinium/Vilanterol 200/62.5/25 Blst.W.Dev) 1 puff INHALE RDAILY [facility] Last Admin: 05/09/23 07:29 Dose: 1 puff Documented By: JASON Folic Acid (Folic Acid 1 Mg Tablet) 1 mg PO DAILY [facility] Last Admin: 05/09/23 08:54 Dose: 1 mg Documented By: KENNEDI Furosemide (Furosemide 40 Mg Tablet) 40 mg PO DAILY [facility]; Protocol Last Admin: 05/09/23 08:54 Dose: 40 mg Documented By: KENNEDI Gabapentin (Gabapentin 100 Mg Capsule) 200 mg PO BID [facility] Last Admin: 05/05/23 09:49 Dose: 200 mg Documented By: LEANN Glucose (Glucose Gel 15 Gm Gel..Gram.) 15 gm PO Q15M PRN; Protocol PRN Reason: per Hypoglycemia Standing Ord. Insulin Human Lispro (Insulin Lispro 100 Unit/Ml 3 Ml Vial) 0 unit SUBCUT QIDACHS [facility]; Protocol Last Admin: 05/09/23 08:52 Dose: Not Given Documented By: KENNEDI Non-Admin Reason: No Insulin Coverage Lactulose (Lactulose 20 Gm/30 Ml Solution) 10 gm PO DAILY PRN PRN Reason: Constipation Melatonin (Melatonin 3 Mg Tablet) 6 mg PO BEDTIME PRN PRN Reason: Insomnia Last Admin: 05/05/23 20:54 Dose: 6 mg Documented By: KRYSTLE Metformin HCl (Metformin Hcl Er 500 Mg Tab.Er.24h) 500 mg PO DAILY@1800 [facility] Last Admin: 05/08/23 17:37 Dose: 500 mg Documented By: ALEXA Omeprazole (Omeprazole 20 Mg Capsule.Dr) 20 mg PO DAILY@0630 [facility] Last Admin: 05/09/23 05:29 Dose: 20 mg Documented By: JOE Ondansetron HCl (Ondansetron Hcl 4 Mg/2 Ml Vial) 4 mg IVPUSH Q8H PRN PRN Reason: Nausea and Vomiting Last Admin: 04/05/23 12:43 Dose: 4 mg Documented By: FERMIN Polyethylene Glycol (Polyethylene Glycol 3350 17 Gm Powd.Pack) 17 gm PO DAILY PRN PRN Reason: Constipation Quetiapine Fumarate (Quetiapine Fumarate 50 Mg Tablet) 50 mg PO Q8H PRN PRN Reason: anxiety/restlessness Quetiapine Fumarate (Quetiapine Fumarate 25 Mg Tablet) 25 mg PO TID [facility] Last Admin: 05/09/23 08:55 Dose: 25 mg Documented By: KENNEDI Senna (Sennosides 8.6 Mg Tablet) 17.2 mg PO BEDTIME [facility] Last Admin: 05/08/23 20:16 Dose: 17.2 mg Documented By: JOE Sertraline HCl (Sertraline Hcl 100 Mg Tablet) 100 mg PO DAILY [facility] Last Admin: 05/09/23 08:55 Dose: 100 mg Documented By: KENNEDI Sodium Chloride (0.9 % Sodium Chloride Flush 3 Ml Syringe) 3 ml IVFLUSH QSHIFT [facility] Last Admin: 05/09/23 08:54 Dose: Not Given Documented By: KENNEDI Non-Admin Reason: No Access Trazodone HCl (Trazodone Hcl 50 Mg Tablet) 50 mg PO BEDTIME PRN PRN Reason: insomnia Last Admin: 05/08/23 20:16 Dose: 50 mg Documented By: JOE Labs 05/07/23 06:44 05/07/23 06:44 Labs: Laboratory Results - last 24 hr 05/08/23 05/08/23 05/08/23 11:06 16:19 19:26 POC Glucose 130 H 120 H 145 H 05/09/23 07:22 POC Glucose 103 Assessment and Plan (1) Toxic metabolic encephalopathy: Status: Acute (2) Back abscess: Status: Acute (3) Aggressive behavior: Status: Acute Plan 72-year-old male with a PMH significant for?CAD, [id number] diabetes type 2, who initially presented presents to the ED on 03/15/2023 from SN[facility] after reportedly having hallucinations and being combative with staff. Pt was placed in physician observation in the ED until he became hypoxic and tested positive for COVID admitted to the medical floor for treatment and further evaluation of acute hypoxic respiratory failure in the setting of COVID infection and new awaiting Placement Increased somnolence 2/2 Toxic metabolic encephalopathy work up including head CTH, CBC, BMP, UA all have been negative. more alert and interactive Concern for oversdation with meds, Lowered Seroquel to 25 mg tid PRN Seroquel 50 tid if needed Psych input appreciated back lower Lumbar abcess s/p I and D, culture did not grow anything. Has completed course of Augmentin local wound care, no packing , foam dressing and change every otherday Acute hypoxic respiratory failure in the setting COVID 19 infection, resolved Finished course of dexamethasone and remdesivir baseline home oxygen 2 L Left mid back discomfort lipoma, no acute intervention. HTN continue coreg, lasix morbid obesity weight loss adivsed Tai-[id number] type 2 diabetes acceptable control on current therapies continue metformin lispro correctional scale adjust as needed Dehydration Post IVF, Bun/Creating better, he is eating and drinking on his own check labs every week or every other week, mondays Full Code Lovenox requires continued hospital stay for safe disposition and medication management for Somnolence and altered mentation . Quality Stroke Does the patient have a stroke diagnosis?: No VTE Prior VTE?: No VTE Risk Level:: Medical - moderate - high VTE Device Contraindication: Treatment Not Indicated VTE Drug Contraindication: N/A - Med Ordered
[2023-05-09 11:48] LABS: Glucose, Whole Blood 115 mg/dL (60-115)
[2023-05-09 15:19] VITALS: BP 118/58; PULSE 86; RESP 16; TEMP 36.7; O2SAT 95
[2023-05-09 16:09] LABS: Glucose, Whole Blood 98 mg/dL (60-115)
[2023-05-09] MEDS: metFORMIN HCl ER 500 MG TAB.ER.24H PO (17:13)
[2023-05-09 19:27] VITALS: BP 139/61; PULSE 72; RESP 18; TEMP 36.1; O2SAT 98
[2023-05-09 20:30] LABS: Glucose, Whole Blood 117 mg/dL (60-115)
[2023-05-09] MEDS: Enoxaparin Sodium 40 MG/0.4 ML SYRINGE SUBCUT (21:38)
[2023-05-09] MEDS: Sennosides 8.6 MG TABLET 17.2 MG PO (21:39)
[2023-05-09] MEDS: Atorvastatin Calcium 40 MG TABLET PO (21:40)
[2023-05-10 03:06] VITALS: BP 111/56; PULSE 64; RESP 18; TEMP 36.1; O2SAT 95
[2023-05-10 05:56] LABS: Hematocrit 37.2 % (42.0-52.0); Hemoglobin 11.9 g/dl (14.0-18.0); Mean Corpuscular Hemoglobin 32.6 pg (27.0-33.0); Mean Corpuscular Volume 101.9 fL (80.0-98.0); Mean Platelet Volume 9.2 fL (9.4-12.4); Platelet Count 159 X10*3/uL (160-400); Red Blood Count 3.65 X10*6/uL (4.60-5.80); Red Cell Distribution Width 15.9 % (11.0-16.0); White Blood Count 8.2 X10*3/uL (4.8-10.8)
[2023-05-10 06:12] LABS: Anion Gap 14 (12-20); Blood Urea Nitrogen 20 mg/dL (9-16); Calcium 8.6 mg/dL (8.4-10.2); Carbon Dioxide 29 mmol/L (22-29); Chloride 103 mmol/L (96-108); Creatinine Clr Calc Pharmacy 88.2; Estimated Glomerular Filt Rate > 60; Glucose Random 87 mg/dL (60-115); Potassium 3.9 mmol/L (3.3-5.1); Sodium 142 mmol/L (135-145)
[2023-05-10] MEDS: Omeprazole 20 MG CAPSULE.DR PO (06:16)
[2023-05-10 07:05] VITALS: BP 124/60; PULSE 62; RESP 18; TEMP 36.4; O2SAT 94
[2023-05-10 07:30] LABS: Glucose, Whole Blood 89 mg/dL (60-115)
[2023-05-10] MEDS: Fluticasone/Umeclidinium/Vilanterol 200/62.5/25 BLST.W.DEV 1 PUFF INHALE (07:30)
[2023-05-10 07:31] VITALS: PULSE 62; RESP 18; O2SAT 94
--- NOTE | 2023-05-10 08:34 | P.PNIM_ITS ---
Subjective Subjective Date of Service: 05/10/23 Interval History: Seen and evaluated this morning alert and interactive denies any complaints Review of Systems Review of Systems: Yes all other systems are reviewed and are negative Physical Exam 2 Vital Signs: Vital Signs: Last Vital Signs Temp 97.6 F 05/10/23 07:05 Pulse 62 05/10/23 07:31 Resp 18 05/10/23 07:31 BP 124/60 05/10/23 07:05 Pulse Ox 94 05/10/23 07:05 O2 Del Method Nasal Cannula 05/10/23 07:05 O2 Flow Rate 2 05/10/23 07:05 Oxygen Flow Rate 3 03/15/23 18:32 BMI result Body Mass Index 44.3 Const: Other: Constitutional : alert, interactive, not in distress Neck : Normal inspection, Supple Cardiovascular : RRR, no JVP, no lower extremity edema Respiratory : good bilateral air entry, no crackles, wheezes or rhonchi Gastrointestinal: soft, lax, Normal bowel sounds, Non tender Skin : Warm, Dry Neurological : Alert , oriented x3, moving all extremities Objective Data Active Medications Acetaminophen (Acetaminophen 325 Mg Tablet) 975 mg PO TID [facility] Last Admin: 05/09/23 21:39 Dose: Not Given Documented By: SHERRON Non-Admin Reason: Patient Refused Al Hydroxide/Mg Hydroxide (Magnesium Hydrox/Alum Hydrox 30 Ml Oral.Susp) 30 ml PO Q6H PRN PRN Reason: dyspepsia Albuterol Sulfate (Albuterol Sulfate 90 Mcg 8 Gm Inhaler) 2 puff INHALE Q4H PRN PRN Reason: Wheezing Aspirin (Aspirin Enteric Coated 81 Mg Tablet.) 81 mg PO DAILY [facility] Last Admin: 05/09/23 08:55 Dose: 81 mg Documented By: KENNEDI Atorvastatin Calcium (Atorvastatin Calcium 40 Mg Tablet) 40 mg PO BEDTIME [facility] Last Admin: 05/09/23 21:40 Dose: 40 mg Documented By: SHERRON Carvedilol (Carvedilol 3.125 Mg Tablet) 3.125 mg PO BID [facility]; Protocol Last Admin: 05/09/23 21:40 Dose: 3.125 mg Documented By: SHERRON Clopidogrel Bisulfate (Clopidogrel Bisulfate 75 Mg Tablet) 75 mg PO DAILY [facility] Last Admin: 05/09/23 08:55 Dose: 75 mg Documented By: KENNEDI Cyanocobalamin (Cyanocobalamin (Vitamin B-12) 1,000 Mcg/Ml Vial) 1,000 mcg IM Q30D [facility] Last Admin: 05/08/23 09:05 Dose: Not Given Documented By: ALEXA Non-Admin Reason: Patient Refused Dextrose (Dextrose 50 % 25 Gm/50 Ml Syringe) 25 gm IVPUSH Q15M PRN; Protocol PRN Reason: per Hypoglycemia Standing Ord. Docusate Sodium (Docusate Sodium 100 Mg Capsule) 100 mg PO BID PRN PRN Reason: Constipation Enoxaparin Sodium (Enoxaparin Sodium 40 Mg/0.4 Ml Syringe) 40 mg SUBCUT Q24H [facility] Last Admin: 05/09/23 21:38 Dose: 40 mg Documented By: SHERRON Fluticasone/Umeclidinium/Vilanterol (Fluticasone/Umeclidinium/Vilanterol 200/62.5/25 Blst.W.Dev) 1 puff INHALE RDAILY [facility] Last Admin: 05/10/23 07:30 Dose: 1 puff Documented By: JASSI Folic Acid (Folic Acid 1 Mg Tablet) 1 mg PO DAILY [facility] Last Admin: 05/09/23 08:54 Dose: 1 mg Documented By: KENNEDI Furosemide (Furosemide 40 Mg Tablet) 40 mg PO DAILY [facility]; Protocol Last Admin: 05/09/23 08:54 Dose: 40 mg Documented By: KENNEDI Gabapentin (Gabapentin 100 Mg Capsule) 200 mg PO BID [facility] Last Admin: 05/05/23 09:49 Dose: 200 mg Documented By: LEANN Glucose (Glucose Gel 15 Gm Gel..Gram.) 15 gm PO Q15M PRN; Protocol PRN Reason: per Hypoglycemia Standing Ord. Insulin Human Lispro (Insulin Lispro 100 Unit/Ml 3 Ml Vial) 0 unit SUBCUT QIDACHS [facility]; Protocol Last Admin: 05/10/23 08:04 Dose: Not Given Documented By: CAT Non-Admin Reason: No Insulin Coverage Lactulose (Lactulose 20 Gm/30 Ml Solution) 10 gm PO DAILY PRN PRN Reason: Constipation Melatonin (Melatonin 3 Mg Tablet) 6 mg PO BEDTIME PRN PRN Reason: Insomnia Last Admin: 05/05/23 20:54 Dose: 6 mg Documented By: KRYSTLE Metformin HCl (Metformin Hcl Er 500 Mg Tab.Er.24h) 500 mg PO DAILY@1800 [facility] Last Admin: 05/09/23 17:13 Dose: 500 mg Documented By: KENNEDI Omeprazole (Omeprazole 20 Mg Capsule.Dr) 20 mg PO DAILY@0630 [facility] Last Admin: 05/10/23 06:16 Dose: 20 mg Documented By: SHERRON Ondansetron HCl (Ondansetron Hcl 4 Mg/2 Ml Vial) 4 mg IVPUSH Q8H PRN PRN Reason: Nausea and Vomiting Last Admin: 04/05/23 12:43 Dose: 4 mg Documented By: FERMIN Polyethylene Glycol (Polyethylene Glycol 3350 17 Gm Powd.Pack) 17 gm PO DAILY PRN PRN Reason: Constipation Quetiapine Fumarate (Quetiapine Fumarate 50 Mg Tablet) 50 mg PO Q8H PRN PRN Reason: anxiety/restlessness Quetiapine Fumarate (Quetiapine Fumarate 25 Mg Tablet) 25 mg PO TID [facility] Last Admin: 05/09/23 21:39 Dose: 25 mg Documented By: SHERRON Senna (Sennosides 8.6 Mg Tablet) 17.2 mg PO BEDTIME [facility] Last Admin: 05/09/23 21:39 Dose: 17.2 mg Documented By: SHERRON Sertraline HCl (Sertraline Hcl 100 Mg Tablet) 100 mg PO DAILY [facility] Last Admin: 05/09/23 08:55 Dose: 100 mg Documented By: KENNEDI Sodium Chloride (0.9 % Sodium Chloride Flush 3 Ml Syringe) 3 ml IVFLUSH QSHIFT [facility] Last Admin: 05/10/23 00:26 Dose: Not Given Documented By: SHERRON Non-Admin Reason: No Access Trazodone HCl (Trazodone Hcl 50 Mg Tablet) 50 mg PO BEDTIME PRN PRN Reason: insomnia Last Admin: 05/08/23 20:16 Dose: 50 mg Documented By: GEORGESILM Labs 05/10/23 05:12 05/10/23 05:12 Labs: Laboratory Results - last 24 hr 05/09/23 05/09/23 05/09/23 11:33 15:59 20:20 MCV MCH MCHC RDW Plt Count MPV Absolute Nucleated RBC Nucleated RBC % (auto) Anion Gap Estim Creat Clear Calc Estimated GFR POC Glucose 115 98 117 H Random Glucose Calcium 05/10/23 05/10/23 05:12 07:08 MCV 101.9 H MCH 32.6 MCHC 32.0 RDW 15.9 Plt Count 159 L MPV 9.2 L Absolute Nucleated RBC 0.000 Nucleated RBC % (auto) 0.0 Anion Gap 14 Estim Creat Clear Calc 88.2 Estimated GFR > 60 POC Glucose 89 Random Glucose 87 Calcium 8.6 Assessment and Plan (1) Toxic metabolic encephalopathy: Status: Acute (2) Major neurocognitive disorder: Status: Acute Plan 72-year-old male with a PMH significant for?CAD, [id number] diabetes type 2, who initially presented presents to the ED on 03/15/2023 from SNF after reportedly having hallucinations and being combative with staff. Pt was placed in physician observation in the ED until he became hypoxic and tested positive for COVID admitted to the medical floor for treatment and further evaluation of acute hypoxic respiratory failure in the setting of COVID infection and new awaiting Placement Toxic metabolic encephalopathy more alert and interactive now Likely related to medications, hospital stay among others work up including head CTH, CBC, BMP, UA all have been negative. Concern for oversdation with meds, Lowered Seroquel to 25 mg tid with good response PRN Seroquel 50 tid if needed (did not have to use since 05/04) Psych input appreciated back lower Lumbar abcess s/p I and D, culture did not grow anything. Has completed course of Augmentin local wound care, no packing , foam dressing and change every otherday Acute hypoxic respiratory failure in the setting COVID 19 infection, resolved Finished course of dexamethasone and remdesivir baseline home oxygen 2 L Left mid back discomfort lipoma, no acute intervention. HTN continue coreg, lasix morbid obesity weight loss adivsed Szs-uohwgol-ryaxtnoxx type 2 diabetes acceptable control on current therapies continue metformin lispro correctional scale adjust as needed Dehydration Post IVF, Bun/Creating better he is eating and drinking on his own check labs every week or every other week, mondays Full Code Lovenox requires continued hospital stay for safe disposition and medication management for Somnolence and altered mentation pending safe discharge plan . Quality Stroke Does the patient have a stroke diagnosis?: No VTE Prior VTE?: No VTE Risk Level:: Medical - moderate - high VTE Device Contraindication: Treatment Not Indicated VTE Drug Contraindication: N/A - Med Ordered
[2023-05-10] MEDS: Aspirin Enteric Coated 81 MG TABLET.DR PO (09:28)
[2023-05-10] MEDS: Folic Acid 1 MG TABLET PO (09:29)
[2023-05-10] MEDS: QUEtiapine Fumarate 25 MG TABLET PO ×2 (09:29→21:16)
[2023-05-10] MEDS: Furosemide 40 MG TABLET PO (09:29)
[2023-05-10] MEDS: Clopidogrel Bisulfate 75 MG TABLET PO (09:29)
[2023-05-10] MEDS: carvediloL 3.125 MG TABLET PO ×2 (09:29→21:16)
[2023-05-10] MEDS: Sertraline HCL 100 MG TABLET PO (09:29)
[2023-05-10 11:51] LABS: Glucose, Whole Blood 113 mg/dL (60-115)
[2023-05-10 15:11] VITALS: BP 132/59; PULSE 66; RESP 14; TEMP 36.2; O2SAT 94
--- NOTE | 2023-05-10 16:05 | MHC.CM.PN ---
pt on a [facility]
[2023-05-10 16:31] LABS: Glucose, Whole Blood 94 mg/dL (60-115)
--- NOTE | 2023-05-10 17:27 | MHC.SLORD ---
Speech Language Pathology Order Status: Patient has been stable on CHOPPED/ADVANCED (NDD3) diet and THIN liquids. Patient was re-assessed multiple times by HISTORY INSTRUCTOR per family's request and no upgrade was recommended given patient's scattered dentition, waxing and waning level of alertness, and choking event on hamburger. He does additionally tolerate SOFT sandwiches (i.e. egg salad, pb&j, chicken salad, tuna fish salad, etc). He continues to require total 1:1 assistance feeding and aspiration precautions: ensure optimal positioning at 90 degrees, give small bites, alternate bites with sips, check oral cavity for clearance. Discussed with Dr. Ortiz. Per , further ST intervention is no longer warranted in this setting as patient appears to be on safest, least restrictive dietary recommendations for this setting. Please re-refer if HISTORY INSTRUCTOR can be of further assistance.
[2023-05-10] MEDS: metFORMIN HCl ER 500 MG TAB.ER.24H PO (17:39)
[2023-05-10 19:49] VITALS: BP 122/59; PULSE 76; RESP 16; TEMP 36.4; O2SAT 95
[2023-05-10 20:07] LABS: Glucose, Whole Blood 189 mg/dL (60-115)
[2023-05-10] MEDS: Insulin Lispro 100 UNIT/ML 3 ML VIAL SUBCUT (21:15)
[2023-05-10] MEDS: Acetaminophen 325 MG TABLET 975 MG PO (21:15)
[2023-05-10] MEDS: Sennosides 8.6 MG TABLET 17.2 MG PO (21:16)
[2023-05-10] MEDS: Enoxaparin Sodium 40 MG/0.4 ML SYRINGE SUBCUT (21:16)
[2023-05-10] MEDS: Atorvastatin Calcium 40 MG TABLET PO (21:16)
[2023-05-11 03:40] VITALS: BP 110/54; PULSE 60; RESP 18; TEMP 36.1; O2SAT 94
[2023-05-11] MEDS: Omeprazole 20 MG CAPSULE.DR PO (06:07)
[2023-05-11 07:28] LABS: Glucose, Whole Blood 96 mg/dL (60-115)
[2023-05-11 08:00] VITALS: BP 122/59; PULSE 66; RESP 16; TEMP 36.2; O2SAT 93
[2023-05-11] MEDS: Fluticasone/Umeclidinium/Vilanterol 200/62.5/25 BLST.W.DEV 1 PUFF INHALE (08:49)
[2023-05-11 08:53] VITALS: PULSE 66; RESP 16; O2SAT 90
[2023-05-11] MEDS: Sertraline HCL 100 MG TABLET PO (09:07)
[2023-05-11] MEDS: Clopidogrel Bisulfate 75 MG TABLET PO (09:07)
[2023-05-11] MEDS: Aspirin Enteric Coated 81 MG TABLET.DR PO (09:07)
[2023-05-11] MEDS: QUEtiapine Fumarate 25 MG TABLET PO ×3 (09:07→20:22)
[2023-05-11] MEDS: Furosemide 40 MG TABLET PO (09:07)
[2023-05-11] MEDS: Folic Acid 1 MG TABLET PO (09:08)
[2023-05-11] MEDS: carvediloL 3.125 MG TABLET PO ×2 (09:08→20:22)
--- NOTE | 2023-05-11 09:31 | P.PNIM_ITS ---
Subjective Subjective Date of Service: 05/11/23 Interval History: Seen and evaluated this morning alert and interactive denies any complaints Review of Systems Review of Systems: Yes all other systems are reviewed and are negative Physical Exam 2 Vital Signs: Vital Signs: Last Vital Signs Temp 97.1 F 05/11/23 08:00 Pulse 66 05/11/23 08:53 Resp 16 05/11/23 08:53 BP 122/59 L 05/11/23 08:00 Pulse Ox 93 05/11/23 08:00 O2 Del Method Nasal Cannula 05/11/23 08:00 O2 Flow Rate 3.0 05/11/23 08:00 Oxygen Flow Rate 3 03/15/23 18:32 BMI result Body Mass Index 44.3 Const: Other: Constitutional : alert, interactive, not in distress Neck : Normal inspection, Supple Cardiovascular : RRR, no JVP, no lower extremity edema Respiratory : good bilateral air entry, no crackles, wheezes or rhonchi Gastrointestinal: soft, lax, Normal bowel sounds, Non tender Skin : Warm, Dry Neurological : Alert , oriented x3, moving all extremities Objective Data Active Medications Acetaminophen (Acetaminophen 325 Mg Tablet) 975 mg PO TID REPLACED BY [facility] Last Admin: 05/11/23 09:08 Dose: Not Given Documented By: CAT Non-Admin Reason: Patient Refused Al Hydroxide/Mg Hydroxide (Magnesium Hydrox/Alum Hydrox 30 Ml Oral.Susp) 30 ml PO Q6H PRN PRN Reason: dyspepsia Albuterol Sulfate (Albuterol Sulfate 90 Mcg 8 Gm Inhaler) 2 puff INHALE Q4H PRN PRN Reason: Wheezing Aspirin (Aspirin Enteric Coated 81 Mg Tablet.) 81 mg PO DAILY REPLACED BY [facility] Last Admin: 05/11/23 09:07 Dose: 81 mg Documented By: CAT Atorvastatin Calcium (Atorvastatin Calcium 40 Mg Tablet) 40 mg PO BEDTIME REPLACED BY [facility] Last Admin: 05/10/23 21:16 Dose: 40 mg Documented By: SHERRON Carvedilol (Carvedilol 3.125 Mg Tablet) 3.125 mg PO BID REPLACED BY [facility]; Protocol Last Admin: 05/11/23 09:08 Dose: 3.125 mg Documented By: CAT Clopidogrel Bisulfate (Clopidogrel Bisulfate 75 Mg Tablet) 75 mg PO DAILY REPLACED BY [facility] Last Admin: 05/11/23 09:07 Dose: 75 mg Documented By: CAT Cyanocobalamin (Cyanocobalamin (Vitamin B-12) 1,000 Mcg/Ml Vial) 1,000 mcg IM Q30D REPLACED BY [facility] Last Admin: 05/08/23 09:05 Dose: Not Given Documented By: ALEXA Non-Admin Reason: Patient Refused Dextrose (Dextrose 50 % 25 Gm/50 Ml Syringe) 25 gm IVPUSH Q15M PRN; Protocol PRN Reason: per Hypoglycemia Standing Ord. Docusate Sodium (Docusate Sodium 100 Mg Capsule) 100 mg PO BID PRN PRN Reason: Constipation Enoxaparin Sodium (Enoxaparin Sodium 40 Mg/0.4 Ml Syringe) 40 mg SUBCUT Q24H REPLACED BY [facility] Last Admin: 05/10/23 21:16 Dose: 40 mg Documented By: SHERORN Fluticasone/Umeclidinium/Vilanterol (Fluticasone/Umeclidinium/Vilanterol 200/62.5/25 Blst.W.Dev) 1 puff INHALE RDAILY REPLACED BY [facility] Last Admin: 05/11/23 08:49 Dose: 1 puff Documented By: RANDAL Folic Acid (Folic Acid 1 Mg Tablet) 1 mg PO DAILY REPLACED BY [facility] Last Admin: 05/11/23 09:08 Dose: 1 mg Documented By: CAT Furosemide (Furosemide 40 Mg Tablet) 40 mg PO DAILY REPLACED BY [facility]; Protocol Last Admin: 05/11/23 09:07 Dose: 40 mg Documented By: CAT Gabapentin (Gabapentin 100 Mg Capsule) 200 mg PO BID REPLACED BY [facility] Last Admin: 05/05/23 09:49 Dose: 200 mg Documented By: LEANN Glucose (Glucose Gel 15 Gm Gel..Gram.) 15 gm PO Q15M PRN; Protocol PRN Reason: per Hypoglycemia Standing Ord. Insulin Human Lispro (Insulin Lispro 100 Unit/Ml 3 Ml Vial) 0 unit SUBCUT QIDACHS REPLACED BY [facility]; Protocol Last Admin: 05/11/23 07:30 Dose: Not Given Documented By: CAT Non-Admin Reason: No Insulin Coverage Lactulose (Lactulose 20 Gm/30 Ml Solution) 10 gm PO DAILY PRN PRN Reason: Constipation Melatonin (Melatonin 3 Mg Tablet) 6 mg PO BEDTIME PRN PRN Reason: Insomnia Last Admin: 05/05/23 20:54 Dose: 6 mg Documented By: KRYSTLE Metformin HCl (Metformin Hcl Er 500 Mg Tab.Er.24h) 500 mg PO DAILY@1800 REPLACED BY [facility] Last Admin: 05/10/23 17:39 Dose: 500 mg Documented By: CAT Omeprazole (Omeprazole 20 Mg Capsule.Dr) 20 mg PO DAILY@0630 REPLACED BY [facility] Last Admin: 05/11/23 06:07 Dose: 20 mg Documented By: SHERRON Ondansetron HCl (Ondansetron Hcl 4 Mg/2 Ml Vial) 4 mg IVPUSH Q8H PRN PRN Reason: Nausea and Vomiting Last Admin: 04/05/23 12:43 Dose: 4 mg Documented By: FERMIN Polyethylene Glycol (Polyethylene Glycol 3350 17 Gm Powd.Pack) 17 gm PO DAILY PRN PRN Reason: Constipation Quetiapine Fumarate (Quetiapine Fumarate 50 Mg Tablet) 50 mg PO Q8H PRN PRN Reason: anxiety/restlessness Quetiapine Fumarate (Quetiapine Fumarate 25 Mg Tablet) 25 mg PO TID REPLACED BY [facility] Last Admin: 05/11/23 09:07 Dose: 25 mg Documented By: CAT Senna (Sennosides 8.6 Mg Tablet) 17.2 mg PO BEDTIME REPLACED BY [facility] Last Admin: 05/10/23 21:16 Dose: 17.2 mg Documented By: SHERRON Sertraline HCl (Sertraline Hcl 100 Mg Tablet) 100 mg PO DAILY REPLACED BY [facility] Last Admin: 05/11/23 09:07 Dose: 100 mg Documented By: CAT Sodium Chloride (0.9 % Sodium Chloride Flush 3 Ml Syringe) 3 ml IVFLUSH QSHIFT REPLACED BY [facility] Last Admin: 05/11/23 07:31 Dose: Not Given Documented By: CAT Non-Admin Reason: No Access Trazodone HCl (Trazodone Hcl 50 Mg Tablet) 50 mg PO BEDTIME PRN PRN Reason: insomnia Last Admin: 05/08/23 20:16 Dose: 50 mg Documented By: GEORGESILAnita Labs 05/10/23 05:12 05/10/23 05:12 Labs: Laboratory Results - last 24 hr 05/10/23 05/10/23 05/10/23 11:47 16:25 19:51 POC Glucose 113 94 189 H 05/11/23 07:17 POC Glucose 96 Assessment and Plan (1) Toxic metabolic encephalopathy: Status: Acute (2) Major neurocognitive disorder: Status: Acute Plan 72-year-old male with a PMH significant for?CAD, [id number]-iunfavvzy diabetes type 2, who initially presented presents to the ED on 03/15/2023 from SNF after reportedly having hallucinations and being combative with staff. Pt was placed in physician observation in the ED until he became hypoxic and tested positive for COVID admitted to the medical floor for treatment and further evaluation of acute hypoxic respiratory failure in the setting of COVID infection and new awaiting Placement Toxic metabolic encephalopathy more alert and interactive now Likely related to medications, hospital stay among others work up including head CTH, CBC, BMP, UA all have been negative. Concern for oversdation with meds, Lowered Seroquel to 25 mg tid with good response PRN Seroquel 50 tid if needed (did not have to use since 05/04) Psych input appreciated back lower Lumbar abcess s/p I and D, culture did not grow anything. Has completed course of Augmentin local wound care, no packing , foam dressing and change every otherday Acute hypoxic respiratory failure in the setting COVID 19 infection, resolved Finished course of dexamethasone and remdesivir baseline home oxygen 2 L Left mid back discomfort lipoma, no acute intervention. HTN continue coreg, lasix morbid obesity weight loss adivsed Pds-umblase-lymmzxoyf type 2 diabetes acceptable control on current therapies continue metformin lispro correctional scale adjust as needed Dehydration Post IVF, Bun/Creating better he is eating and drinking on his own check labs every week or every other week, mondays Full Code Lovenox requires continued hospital stay for safe disposition and medication management for Somnolence and altered mentation pending safe discharge plan . Quality Stroke Does the patient have a stroke diagnosis?: No VTE Prior VTE?: No VTE Risk Level:: Medical - moderate - high VTE Device Contraindication: Treatment Not Indicated VTE Drug Contraindication: N/A - Med Ordered
[2023-05-11 11:12] LABS: Glucose, Whole Blood 152 mg/dL (60-115)
[2023-05-11] MEDS: Insulin Lispro 100 UNIT/ML 3 ML VIAL SUBCUT (11:39)
[2023-05-11 15:41] VITALS: BP 118/57; PULSE 62; RESP 16; TEMP 36.2; O2SAT 95
[2023-05-11 16:22] LABS: Glucose, Whole Blood 125 mg/dL (60-115)
[2023-05-11] MEDS: metFORMIN HCl ER 500 MG TAB.ER.24H PO (17:35)
[2023-05-11 19:14] VITALS: BP 113/59; PULSE 66; RESP 19; TEMP 36.1; O2SAT 94
[2023-05-11 20:14] LABS: Glucose, Whole Blood 137 mg/dL (60-115)
[2023-05-11] MEDS: Sennosides 8.6 MG TABLET 17.2 MG PO (20:22)
[2023-05-11] MEDS: Atorvastatin Calcium 40 MG TABLET PO (20:22)
[2023-05-11] MEDS: Enoxaparin Sodium 40 MG/0.4 ML SYRINGE SUBCUT (20:22)
[2023-05-12 02:48] VITALS: BP 131/60; PULSE 71; RESP 18; TEMP 36.1; O2SAT 94
[2023-05-12] MEDS: Omeprazole 20 MG CAPSULE.DR PO (05:57)
[2023-05-12 07:15] LABS: Glucose, Whole Blood 133 mg/dL (60-115)
[2023-05-12 07:33] VITALS: BP 106/53; PULSE 70; RESP 20; TEMP 36.8; O2SAT 93
[2023-05-12] MEDS: carvediloL 3.125 MG TABLET PO ×2 (08:05→19:53)
[2023-05-12] MEDS: Furosemide 40 MG TABLET PO (08:05)
[2023-05-12] MEDS: QUEtiapine Fumarate 25 MG TABLET PO ×3 (08:05→19:55)
[2023-05-12] MEDS: Aspirin Enteric Coated 81 MG TABLET.DR PO (08:05)
[2023-05-12] MEDS: Folic Acid 1 MG TABLET PO (08:05)
[2023-05-12] MEDS: Clopidogrel Bisulfate 75 MG TABLET PO (08:05)
[2023-05-12] MEDS: Sertraline HCL 100 MG TABLET PO (08:05)
[2023-05-12] MEDS: Fluticasone/Umeclidinium/Vilanterol 200/62.5/25 BLST.W.DEV 1 PUFF INHALE (08:23)
[2023-05-12 08:25] VITALS: PULSE 81; RESP 18; O2SAT 92
--- NOTE | 2023-05-12 10:04 | HO.PM.IMPN ---
Subjective Subjective Date of Service: 05/12/23 Interval History: back pain Physical Exam Vital Signs: Vital Signs: Last Vital Signs Temp 98.2 F 05/12/23 07:33 Pulse 81 05/12/23 08:25 Resp 18 05/12/23 08:25 BP 106/53 L 05/12/23 07:33 Pulse Ox 93 05/12/23 07:33 O2 Del Method Nasal Cannula 05/12/23 07:33 O2 Flow Rate 2 05/12/23 07:33 Oxygen Flow Rate 3 03/15/23 18:32 BMI result Body Mass Index 44.3 Const: Other: Constitutional : alert, interactive, not in distress Neck : Normal inspection, Supple Cardiovascular : RRR, no JVP, no lower extremity edema Respiratory : good bilateral air entry, no crackles, wheezes or rhonchi Gastrointestinal: soft, lax, Normal bowel sounds, Non tender Skin : Warm, Dry Neurological : Alert , oriented x3, moving all extremities Objective Data Active Medications Acetaminophen (Acetaminophen 325 Mg Tablet) 975 mg PO TID [facility] Last Admin: 05/12/23 08:03 Dose: Not Given Documented By: ROLAND Non-Admin Reason: Patient Refused Al Hydroxide/Mg Hydroxide (Magnesium Hydrox/Alum Hydrox 30 Ml Oral.Susp) 30 ml PO Q6H PRN PRN Reason: dyspepsia Albuterol Sulfate (Albuterol Sulfate 90 Mcg 8 Gm Inhaler) 2 puff INHALE Q4H PRN PRN Reason: Wheezing Aspirin (Aspirin Enteric Coated 81 Mg Tablet.) 81 mg PO DAILY [facility] Last Admin: 05/12/23 08:05 Dose: 81 mg Documented By: ROLAND Atorvastatin Calcium (Atorvastatin Calcium 40 Mg Tablet) 40 mg PO BEDTIME [facility] Last Admin: 05/11/23 20:22 Dose: 40 mg Documented By: CAT Carvedilol (Carvedilol 3.125 Mg Tablet) 3.125 mg PO BID [facility]; Protocol Last Admin: 05/12/23 08:05 Dose: 3.125 mg Documented By: ROLAND Clopidogrel Bisulfate (Clopidogrel Bisulfate 75 Mg Tablet) 75 mg PO DAILY [facility] Last Admin: 05/12/23 08:05 Dose: 75 mg Documented By: ROLAND Cyanocobalamin (Cyanocobalamin (Vitamin B-12) 1,000 Mcg/Ml Vial) 1,000 mcg IM Q30D [facility] Last Admin: 05/08/23 09:05 Dose: Not Given Documented By: ALEXA Non-Admin Reason: Patient Refused Dextrose (Dextrose 50 % 25 Gm/50 Ml Syringe) 25 gm IVPUSH Q15M PRN; Protocol PRN Reason: per Hypoglycemia Standing Ord. Docusate Sodium (Docusate Sodium 100 Mg Capsule) 100 mg PO BID PRN PRN Reason: Constipation Enoxaparin Sodium (Enoxaparin Sodium 40 Mg/0.4 Ml Syringe) 40 mg SUBCUT Q24H [facility] Last Admin: 05/11/23 20:22 Dose: 40 mg Documented By: CAT Fluticasone/Umeclidinium/Vilanterol (Fluticasone/Umeclidinium/Vilanterol 200/62.5/25 Blst.W.Dev) 1 puff INHALE RDAILY [facility] Last Admin: 05/12/23 08:23 Dose: 1 puff Documented By: JASON Folic Acid (Folic Acid 1 Mg Tablet) 1 mg PO DAILY [facility] Last Admin: 05/12/23 08:05 Dose: 1 mg Documented By: ROLAND Furosemide (Furosemide 40 Mg Tablet) 40 mg PO DAILY [facility]; Protocol Last Admin: 05/12/23 08:05 Dose: 40 mg Documented By: ROLAND Gabapentin (Gabapentin 100 Mg Capsule) 200 mg PO BID [facility] Last Admin: 05/05/23 09:49 Dose: 200 mg Documented By: LEANN Glucose (Glucose Gel 15 Gm Gel..Gram.) 15 gm PO Q15M PRN; Protocol PRN Reason: per Hypoglycemia Standing Ord. Insulin Human Lispro (Insulin Lispro 100 Unit/Ml 3 Ml Vial) 0 unit SUBCUT QIDACHS [facility]; Protocol Last Admin: 05/12/23 07:24 Dose: Not Given Documented By: ROLAND Non-Admin Reason: No Insulin Coverage Lactulose (Lactulose 20 Gm/30 Ml Solution) 10 gm PO DAILY PRN PRN Reason: Constipation Melatonin (Melatonin 3 Mg Tablet) 6 mg PO BEDTIME PRN PRN Reason: Insomnia Last Admin: 05/05/23 20:54 Dose: 6 mg Documented By: KRYSTLE Metformin HCl (Metformin Hcl Er 500 Mg Tab.Er.24h) 500 mg PO DAILY@1800 [facility] Last Admin: 05/11/23 17:35 Dose: 500 mg Documented By: CAT Omeprazole (Omeprazole 20 Mg Capsule.Dr) 20 mg PO DAILY@0630 [facility] Last Admin: 05/12/23 05:57 Dose: 20 mg Documented By: CARROLL Ondansetron HCl (Ondansetron Hcl 4 Mg/2 Ml Vial) 4 mg IVPUSH Q8H PRN PRN Reason: Nausea and Vomiting Last Admin: 04/05/23 12:43 Dose: 4 mg Documented By: FERMIN Polyethylene Glycol (Polyethylene Glycol 3350 17 Gm Powd.Pack) 17 gm PO DAILY PRN PRN Reason: Constipation Quetiapine Fumarate (Quetiapine Fumarate 50 Mg Tablet) 50 mg PO Q8H PRN PRN Reason: anxiety/restlessness Quetiapine Fumarate (Quetiapine Fumarate 25 Mg Tablet) 25 mg PO TID [facility] Last Admin: 05/12/23 08:05 Dose: 25 mg Documented By: ROLAND Senna (Sennosides 8.6 Mg Tablet) 17.2 mg PO BEDTIME [facility] Last Admin: 05/11/23 20:22 Dose: 17.2 mg Documented By: CAT Sertraline HCl (Sertraline Hcl 100 Mg Tablet) 100 mg PO DAILY [facility] Last Admin: 05/12/23 08:05 Dose: 100 mg Documented By: ROLAND Sodium Chloride (0.9 % Sodium Chloride Flush 3 Ml Syringe) 3 ml IVFLUSH QSHIFT [facility] Last Admin: 05/12/23 08:02 Dose: Not Given Documented By: ROLAND Non-Admin Reason: No Access Trazodone HCl (Trazodone Hcl 50 Mg Tablet) 50 mg PO BEDTIME PRN PRN Reason: insomnia Last Admin: 05/08/23 20:16 Dose: 50 mg Documented By: GEORGESILAnita Labs 05/10/23 05:12 05/10/23 05:12 Labs: Laboratory Results - last 24 hr 05/11/23 05/11/23 05/11/23 11:02 16:17 19:31 POC Glucose 152 H 125 H 137 H 05/12/23 07:04 POC Glucose 133 H Assessment and Plan (1) Toxic metabolic encephalopathy: Status: Acute (2) Major neurocognitive disorder: Status: Acute Plan 72M PMH significant for?CAD, tuj-grgkrgr-ingfjknil diabetes type 2, who initially presented to the ED on 03/15/2023 from SNF after reportedly having hallucinations and being combative with staff. Pt was placed in physician observation in the ED until he became hypoxic and tested positive for COVID admitted to the medical floor for treatment and further evaluation of acute hypoxic respiratory failure in the setting of COVID infection and new awaiting Placement Toxic metabolic encephalopathy more alert and interactive now Likely related to medications, hospital stay among others work up including head CTH, CBC, BMP, UA all have been negative. Concern for oversdation with meds, Lowered Seroquel to 25 mg tid with good response PRN Seroquel 50 tid if needed (did not have to use since 05/04) Psych input appreciated back lower Lumbar abcess s/p I and D, culture did not grow anything. Has completed course of Augmentin local wound care, no packing , foam dressing and change every other day Acute hypoxic respiratory failure in the setting COVID 19 infection, resolved Finished course of dexamethasone and remdesivir baseline home oxygen 2 L Left mid back discomfort lipoma, no acute intervention. HTN continue coreg, lasix morbid obesity weight loss advised Lsg-mvagfqt-mlmqmphpu type 2 diabetes acceptable control on current therapies continue metformin lispro correctional scale adjust as needed Dehydration Post IVF, Bun/Creating better he is eating and drinking on his own Full Code Lovenox requires continued hospital stay for safe disposition and medication management for Somnolence and altered mentation pending safe discharge plan . Quality Stroke Does the patient have a stroke diagnosis?: No VTE Prior VTE?: No VTE Risk Level:: Medical - moderate - high VTE Device Contraindication: Treatment Not Indicated VTE Drug Contraindication: N/A - Med Ordered
[2023-05-12 11:08] LABS: Glucose, Whole Blood 134 mg/dL (60-115)
[2023-05-12 15:19] VITALS: BP 135/65; PULSE 76; RESP 16; TEMP 36.6; O2SAT 94
[2023-05-12 16:30] LABS: Glucose, Whole Blood 111 mg/dL (60-115)
[2023-05-12] MEDS: metFORMIN HCl ER 500 MG TAB.ER.24H PO (17:28)
[2023-05-12 19:05] VITALS: BP 126/58; PULSE 75; RESP 16; TEMP 36.3; O2SAT 96
[2023-05-12 19:40] LABS: Glucose, Whole Blood 142 mg/dL (60-115)
[2023-05-12] MEDS: Enoxaparin Sodium 40 MG/0.4 ML SYRINGE SUBCUT (19:52)
[2023-05-12] MEDS: Atorvastatin Calcium 40 MG TABLET PO (19:53)
[2023-05-12] MEDS: Sennosides 8.6 MG TABLET 17.2 MG PO (19:53)
[2023-05-13 04:00] VITALS: BP 114/56; PULSE 67; RESP 18; TEMP 37.1; O2SAT 94
[2023-05-13] MEDS: Omeprazole 20 MG CAPSULE.DR PO (06:23)
[2023-05-13 07:21] VITALS: BP 115/54; PULSE 73; RESP 18; TEMP 36.1; O2SAT 96
[2023-05-13 07:21] LABS: Glucose, Whole Blood 136 mg/dL (60-115)
[2023-05-13] MEDS: Acetaminophen 325 MG TABLET 975 MG PO ×3 (07:55→20:46)
[2023-05-13] MEDS: Folic Acid 1 MG TABLET PO (07:55)
[2023-05-13] MEDS: QUEtiapine Fumarate 25 MG TABLET PO ×3 (07:55→20:46)
[2023-05-13] MEDS: Clopidogrel Bisulfate 75 MG TABLET PO (07:55)
[2023-05-13] MEDS: carvediloL 3.125 MG TABLET PO ×2 (07:55→20:46)
[2023-05-13] MEDS: Sertraline HCL 100 MG TABLET PO (07:55)
[2023-05-13] MEDS: Aspirin Enteric Coated 81 MG TABLET.DR PO (07:56)
[2023-05-13] MEDS: Furosemide 40 MG TABLET PO (07:56)
[2023-05-13] MEDS: Fluticasone/Umeclidinium/Vilanterol 200/62.5/25 BLST.W.DEV 1 PUFF INHALE (08:46)
[2023-05-13 08:50] VITALS: PULSE 70; RESP 15; O2SAT 93
--- NOTE | 2023-05-13 09:10 | HO.PM.IMPN ---
Subjective Subjective Date of Service: 05/13/23 Interval History: no new issues Physical Exam Vital Signs: Vital Signs: Last Vital Signs Temp 96.9 F 05/13/23 07:21 Pulse 70 05/13/23 08:50 Resp 15 05/13/23 08:50 BP 115/54 L 05/13/23 07:21 Pulse Ox 96 05/13/23 07:21 O2 Del Method Nasal Cannula 05/13/23 07:21 O2 Flow Rate 2 05/13/23 07:21 Oxygen Flow Rate 3 03/15/23 18:32 BMI result Body Mass Index 44.3 Const: Other: Constitutional : alert, interactive, not in distress Neck : Normal inspection, Supple Cardiovascular : RRR, no JVP, no lower extremity edema Respiratory : good bilateral air entry, no crackles, wheezes or rhonchi Gastrointestinal: soft, lax, Normal bowel sounds, Non tender Skin : Warm, Dry Neurological : Alert , oriented x3, moving all extremities Objective Data Active Medications Acetaminophen (Acetaminophen 325 Mg Tablet) 975 mg PO TID [facility] Last Admin: 05/13/23 07:55 Dose: 975 mg Documented By: JEROMY Al Hydroxide/Mg Hydroxide (Magnesium Hydrox/Alum Hydrox 30 Ml Oral.Susp) 30 ml PO Q6H PRN PRN Reason: dyspepsia Albuterol Sulfate (Albuterol Sulfate 90 Mcg 8 Gm Inhaler) 2 puff INHALE Q4H PRN PRN Reason: Wheezing Aspirin (Aspirin Enteric Coated 81 Mg Tablet.) 81 mg PO DAILY [facility] Last Admin: 05/13/23 07:56 Dose: 81 mg Documented By: JEROMY Atorvastatin Calcium (Atorvastatin Calcium 40 Mg Tablet) 40 mg PO BEDTIME [facility] Last Admin: 05/12/23 19:53 Dose: 40 mg Documented By: RAZIA Carvedilol (Carvedilol 3.125 Mg Tablet) 3.125 mg PO BID [facility]; Protocol Last Admin: 05/13/23 07:55 Dose: 3.125 mg Documented By: JEROMY Clopidogrel Bisulfate (Clopidogrel Bisulfate 75 Mg Tablet) 75 mg PO DAILY [facility] Last Admin: 05/13/23 07:55 Dose: 75 mg Documented By: JEROMY Cyanocobalamin (Cyanocobalamin (Vitamin B-12) 1,000 Mcg/Ml Vial) 1,000 mcg IM Q30D [facility] Last Admin: 05/08/23 09:05 Dose: Not Given Documented By: ALEXA Non-Admin Reason: Patient Refused Dextrose (Dextrose 50 % 25 Gm/50 Ml Syringe) 25 gm IVPUSH Q15M PRN; Protocol PRN Reason: per Hypoglycemia Standing Ord. Docusate Sodium (Docusate Sodium 100 Mg Capsule) 100 mg PO BID PRN PRN Reason: Constipation Enoxaparin Sodium (Enoxaparin Sodium 40 Mg/0.4 Ml Syringe) 40 mg SUBCUT Q24H [facility] Last Admin: 05/12/23 19:52 Dose: 40 mg Documented By: RAZIA Fluticasone/Umeclidinium/Vilanterol (Fluticasone/Umeclidinium/Vilanterol 200/62.5/25 Blst.W.Dev) 1 puff INHALE RDAILY [facility] Last Admin: 05/13/23 08:46 Dose: 1 puff Documented By: JASON Folic Acid (Folic Acid 1 Mg Tablet) 1 mg PO DAILY [facility] Last Admin: 05/13/23 07:55 Dose: 1 mg Documented By: JEROMY Furosemide (Furosemide 40 Mg Tablet) 40 mg PO DAILY [facility]; Protocol Last Admin: 05/13/23 07:56 Dose: 40 mg Documented By: JEROMY Gabapentin (Gabapentin 100 Mg Capsule) 200 mg PO BID [facility] Last Admin: 05/05/23 09:49 Dose: 200 mg Documented By: LEANN Glucose (Glucose Gel 15 Gm Gel..Gram.) 15 gm PO Q15M PRN; Protocol PRN Reason: per Hypoglycemia Standing Ord. Insulin Human Lispro (Insulin Lispro 100 Unit/Ml 3 Ml Vial) 0 unit SUBCUT QIDACHS [facility]; Protocol Last Admin: 05/13/23 07:39 Dose: Not Given Documented By: JEROMY Non-Admin Reason: No Insulin Coverage Lactulose (Lactulose 20 Gm/30 Ml Solution) 10 gm PO DAILY PRN PRN Reason: Constipation Melatonin (Melatonin 3 Mg Tablet) 6 mg PO BEDTIME PRN PRN Reason: Insomnia Last Admin: 05/05/23 20:54 Dose: 6 mg Documented By: KRYSTLE Metformin HCl (Metformin Hcl Er 500 Mg Tab.Er.24h) 500 mg PO DAILY@1800 [facility] Last Admin: 05/12/23 17:28 Dose: 500 mg Documented By: RAZIA Omeprazole (Omeprazole 20 Mg Capsule.) 20 mg PO DAILY@0630 [facility] Last Admin: 05/13/23 06:23 Dose: 20 mg Documented By: JYOTI Ondansetron HCl (Ondansetron Hcl 4 Mg/2 Ml Vial) 4 mg IVPUSH Q8H PRN PRN Reason: Nausea and Vomiting Last Admin: 04/05/23 12:43 Dose: 4 mg Documented By: FERMIN Polyethylene Glycol (Polyethylene Glycol 3350 17 Gm Powd.Pack) 17 gm PO DAILY PRN PRN Reason: Constipation Quetiapine Fumarate (Quetiapine Fumarate 50 Mg Tablet) 50 mg PO Q8H PRN PRN Reason: anxiety/restlessness Quetiapine Fumarate (Quetiapine Fumarate 25 Mg Tablet) 25 mg PO TID [facility] Last Admin: 05/13/23 07:55 Dose: 25 mg Documented By: JEROMY Senna (Sennosides 8.6 Mg Tablet) 17.2 mg PO BEDTIME [facility] Last Admin: 05/12/23 19:53 Dose: 17.2 mg Documented By: RAZIA Sertraline HCl (Sertraline Hcl 100 Mg Tablet) 100 mg PO DAILY [facility] Last Admin: 05/13/23 07:55 Dose: 100 mg Documented By: JEROMY Sodium Chloride (0.9 % Sodium Chloride Flush 3 Ml Syringe) 3 ml IVFLUSH QSHIFT [facility] Last Admin: 05/13/23 07:56 Dose: Not Given Documented By: JEROMY Non-Admin Reason: No Access Trazodone HCl (Trazodone Hcl 50 Mg Tablet) 50 mg PO BEDTIME PRN PRN Reason: insomnia Last Admin: 05/08/23 20:16 Dose: 50 mg Documented By: JOE Labs 05/10/23 05:12 05/10/23 05:12 Labs: Laboratory Results - last 24 hr 05/12/23 05/12/23 05/12/23 11:05 16:10 19:07 POC Glucose 134 H 111 142 H 05/13/23 07:11 POC Glucose 136 H Assessment and Plan (1) Toxic metabolic encephalopathy: Status: Acute (2) Major neurocognitive disorder: Status: Acute Plan 72M PMH significant for?CAD, lnv-eyalalq-scppnifiu diabetes type 2, who initially presented to the ED on 03/15/2023 from SNF after reportedly having hallucinations and being combative with staff. Pt was placed in physician observation in the ED until he became hypoxic and tested positive for COVID admitted to the medical floor for treatment and further evaluation of acute hypoxic respiratory failure in the setting of COVID infection and new awaiting Placement no new events overnight Toxic metabolic encephalopathy more alert and interactive now Likely related to medications, hospital stay among others work up including head CTH, CBC, BMP, UA all have been negative. Concern for oversdation with meds, Lowered Seroquel to 25 mg tid with good response PRN Seroquel 50 tid if needed (did not have to use since 05/04) Psych input appreciated back lower Lumbar abcess s/p I and D, culture did not grow anything. Has completed course of Augmentin local wound care, no packing , foam dressing and change every other day Acute hypoxic respiratory failure in the setting COVID 19 infection, resolved Finished course of dexamethasone and remdesivir baseline home oxygen 2 L Left mid back discomfort lipoma, no acute intervention. HTN continue coreg, lasix morbid obesity weight loss advised Jkq-ygzyvyj-tiqfipjrc type 2 diabetes acceptable control on current therapies continue metformin lispro correctional scale adjust as needed Dehydration Post IVF, Bun/Creating better he is eating and drinking on his own Full Code Lovenox requires continued hospital stay for safe disposition and medication management for Somnolence and altered mentation pending safe discharge plan . Quality Stroke Does the patient have a stroke diagnosis?: No VTE Prior VTE?: No VTE Risk Level:: Medical - moderate - high VTE Device Contraindication: Treatment Not Indicated VTE Drug Contraindication: N/A - Med Ordered
--- NOTE | 2023-05-13 09:25 | MHC.CM.PN ---
Addendum entered by Anastasiia Anaya 05/13/23 12:26: CM SPOKE TO [facility]U AND CONFIRMED PT IS STILL SEEKING PLACEMENT SHE REQUESTED UPDATED CLINICALS BE FAXED TO HER AT [phone] SHE CONFIRMED THE LAST UPDATES RECEIVED WERE 05/04/23 UPDATES FAXED Original Note: JASPREET RECEIVED A MESSAGE FROM [facility] AT [facility] REQUESTING A RETURN CALL ON THIS PT CM CALLED BACK AND LEFT A MESSAGE [facility] [phone] X [phone]
[2023-05-13 11:19] LABS: Glucose, Whole Blood 126 mg/dL (60-115)
[2023-05-13 14:52] VITALS: BP 122/60; PULSE 72; RESP 16; TEMP 36.6; O2SAT 93
[2023-05-13 16:17] LABS: Glucose, Whole Blood 132 mg/dL (60-115)
[2023-05-13] MEDS: metFORMIN HCl ER 500 MG TAB.ER.24H PO (18:27)
[2023-05-13 19:45] VITALS: BP 115/56; RESP 18; TEMP 36.5; O2SAT 93
[2023-05-13 20:03] LABS: Glucose, Whole Blood 115 mg/dL (60-115)
[2023-05-13] MEDS: Enoxaparin Sodium 40 MG/0.4 ML SYRINGE SUBCUT (20:45)
[2023-05-13] MEDS: traZODone HCL 50 MG TABLET PO (20:46)
[2023-05-13] MEDS: Sennosides 8.6 MG TABLET 17.2 MG PO (20:46)
[2023-05-13] MEDS: Atorvastatin Calcium 40 MG TABLET PO (20:46)
[2023-05-14] MEDS: Omeprazole 20 MG CAPSULE.DR PO (05:56)
[2023-05-14 06:25] LABS: Estimated Glomerular Filt Rate 58
[2023-05-14 07:20] LABS: Glucose, Whole Blood 99 mg/dL (60-115)
[2023-05-14 07:25] VITALS: BP 133/60; PULSE 78; RESP 18; TEMP 37; O2SAT 94
--- NOTE | 2023-05-14 07:46 | P.PNIM_ITS ---
Subjective Subjective Date of Service: 05/14/23 Interval History: denies new complaints Physical Exam 2 Vital Signs: Vital Signs: Last Vital Signs Temp 98.6 F 05/14/23 07:25 Pulse 78 05/14/23 07:25 Resp 18 05/14/23 07:25 BP 133/60 05/14/23 07:25 Pulse Ox 94 05/14/23 07:25 O2 Del Method Nasal Cannula 05/14/23 07:25 O2 Flow Rate 2 05/14/23 07:25 Oxygen Flow Rate 3 03/15/23 18:32 BMI result Body Mass Index 44.3 Const: Other: Constitutional : alert, interactive, not in distress Neck : Normal inspection, Supple Cardiovascular : RRR, no JVP, no lower extremity edema Respiratory : good bilateral air entry, no crackles, wheezes or rhonchi Gastrointestinal: soft, lax, Normal bowel sounds, Non tender Skin : Warm, Dry Neurological : Alert , oriented x3, moving all extremities Objective Data Active Medications Acetaminophen (Acetaminophen 325 Mg Tablet) 975 mg PO TID [facility] Last Admin: 05/13/23 20:46 Dose: 975 mg Documented By: BINH Al Hydroxide/Mg Hydroxide (Magnesium Hydrox/Alum Hydrox 30 Ml Oral.Susp) 30 ml PO Q6H PRN PRN Reason: dyspepsia Albuterol Sulfate (Albuterol Sulfate 90 Mcg 8 Gm Inhaler) 2 puff INHALE Q4H PRN PRN Reason: Wheezing Aspirin (Aspirin Enteric Coated 81 Mg Tablet.) 81 mg PO DAILY [facility] Last Admin: 05/13/23 07:56 Dose: 81 mg Documented By: JEROMY Atorvastatin Calcium (Atorvastatin Calcium 40 Mg Tablet) 40 mg PO BEDTIME [facility] Last Admin: 05/13/23 20:46 Dose: 40 mg Documented By: BINH Carvedilol (Carvedilol 3.125 Mg Tablet) 3.125 mg PO BID [facility]; Protocol Last Admin: 05/13/23 20:46 Dose: 3.125 mg Documented By: BINH Clopidogrel Bisulfate (Clopidogrel Bisulfate 75 Mg Tablet) 75 mg PO DAILY [facility] Last Admin: 05/13/23 07:55 Dose: 75 mg Documented By: JEROMY Cyanocobalamin (Cyanocobalamin (Vitamin B-12) 1,000 Mcg/Ml Vial) 1,000 mcg IM Q30D [facility] Last Admin: 05/08/23 09:05 Dose: Not Given Documented By: ALEXA Non-Admin Reason: Patient Refused Dextrose (Dextrose 50 % 25 Gm/50 Ml Syringe) 25 gm IVPUSH Q15M PRN; Protocol PRN Reason: per Hypoglycemia Standing Ord. Docusate Sodium (Docusate Sodium 100 Mg Capsule) 100 mg PO BID PRN PRN Reason: Constipation Enoxaparin Sodium (Enoxaparin Sodium 40 Mg/0.4 Ml Syringe) 40 mg SUBCUT Q24H [facility] Last Admin: 05/13/23 20:45 Dose: 40 mg Documented By: BINH Fluticasone/Umeclidinium/Vilanterol (Fluticasone/Umeclidinium/Vilanterol 200/62.5/25 Blst.W.Dev) 1 puff INHALE RDAILY [facility] Last Admin: 05/14/23 07:45 Dose: Not Given Documented By: JASSI Non-Admin Reason: pt unable to perform this am Folic Acid (Folic Acid 1 Mg Tablet) 1 mg PO DAILY [facility] Last Admin: 05/13/23 07:55 Dose: 1 mg Documented By: JEROMY Furosemide (Furosemide 40 Mg Tablet) 40 mg PO DAILY [facility]; Protocol Last Admin: 05/13/23 07:56 Dose: 40 mg Documented By: JEROMY Gabapentin (Gabapentin 100 Mg Capsule) 200 mg PO BID [facility] Last Admin: 05/05/23 09:49 Dose: 200 mg Documented By: LEANN Glucose (Glucose Gel 15 Gm Gel..Gram.) 15 gm PO Q15M PRN; Protocol PRN Reason: per Hypoglycemia Standing Ord. Insulin Human Lispro (Insulin Lispro 100 Unit/Ml 3 Ml Vial) 0 unit SUBCUT QIDACHS [facility]; Protocol Last Admin: 05/13/23 20:47 Dose: Not Given Documented By: BINH Non-Admin Reason: No Insulin Coverage Lactulose (Lactulose 20 Gm/30 Ml Solution) 10 gm PO DAILY PRN PRN Reason: Constipation Melatonin (Melatonin 3 Mg Tablet) 6 mg PO BEDTIME PRN PRN Reason: Insomnia Last Admin: 05/05/23 20:54 Dose: 6 mg Documented By: KRYSTLE Metformin HCl (Metformin Hcl Er 500 Mg Tab.Er.24h) 500 mg PO DAILY@1800 [facility] Last Admin: 05/13/23 18:27 Dose: 500 mg Documented By: JEROMY Omeprazole (Omeprazole 20 Mg Capsule.Dr) 20 mg PO DAILY@0630 [facility] Last Admin: 05/14/23 05:56 Dose: 20 mg Documented By: BINH Ondansetron HCl (Ondansetron Hcl 4 Mg/2 Ml Vial) 4 mg IVPUSH Q8H PRN PRN Reason: Nausea and Vomiting Last Admin: 04/05/23 12:43 Dose: 4 mg Documented By: FERMIN Polyethylene Glycol (Polyethylene Glycol 3350 17 Gm Powd.Pack) 17 gm PO DAILY PRN PRN Reason: Constipation Quetiapine Fumarate (Quetiapine Fumarate 50 Mg Tablet) 50 mg PO Q8H PRN PRN Reason: anxiety/restlessness Quetiapine Fumarate (Quetiapine Fumarate 25 Mg Tablet) 25 mg PO TID [facility] Last Admin: 05/13/23 20:46 Dose: 25 mg Documented By: BINH Senna (Sennosides 8.6 Mg Tablet) 17.2 mg PO BEDTIME [facility] Last Admin: 05/13/23 20:46 Dose: 17.2 mg Documented By: BINH Sertraline HCl (Sertraline Hcl 100 Mg Tablet) 100 mg PO DAILY [facility] Last Admin: 05/13/23 07:55 Dose: 100 mg Documented By: JEROMY Sodium Chloride (0.9 % Sodium Chloride Flush 3 Ml Syringe) 3 ml IVFLUSH QSHIFT [facility] Last Admin: 05/13/23 20:47 Dose: Not Given Documented By: BINH Non-Admin Reason: No Access Trazodone HCl (Trazodone Hcl 50 Mg Tablet) 50 mg PO BEDTIME PRN PRN Reason: insomnia Last Admin: 05/13/23 20:46 Dose: 50 mg Documented By: BINH Labs 05/10/23 05:12 05/14/23 05:26 Labs: Laboratory Results - last 24 hr 05/13/23 05/13/23 05/13/23 11:01 16:12 19:48 Hold Purple Top Estim Creat Clear Calc Estimated GFR POC Glucose 126 H 132 H 115 05/14/23 05/14/23 05:26 07:16 Hold Purple Top SEE NOTE Estim Creat Clear Calc 81.0 Estimated GFR 58 POC Glucose 99 Assessment and Plan (1) Toxic metabolic encephalopathy: Status: Acute (2) Major neurocognitive disorder: Status: Acute Plan 72M PMH significant for?CAD, [id number] diabetes type 2, who initially presented to the ED on 03/15/2023 from SNF after reportedly having hallucinations and being combative with staff. Pt was placed in physician observation in the ED until he became hypoxic and tested positive for COVID admitted to the medical floor for treatment and further evaluation of acute hypoxic respiratory failure in the setting of COVID infection and new awaiting Placement stable today Toxic metabolic encephalopathy more alert and interactive now Likely related to medications, hospital stay among others work up including head CTH, CBC, BMP, UA all have been negative. Concern for oversdation with meds, Lowered Seroquel to 25 mg tid with good response PRN Seroquel 50 tid if needed (did not have to use since 05/04) Psych input appreciated back lower Lumbar abcess s/p I and D, culture did not grow anything. Has completed course of Augmentin local wound care, no packing , foam dressing and change every other day Acute hypoxic respiratory failure in the setting COVID 19 infection, resolved Finished course of dexamethasone and remdesivir baseline home oxygen 2 L Left mid back discomfort lipoma, no acute intervention. HTN continue coreg, lasix morbid obesity weight loss advised [id number] type 2 diabetes acceptable control on current therapies continue metformin lispro correctional scale adjust as needed Dehydration Post IVF, Bun/Creating better he is eating and drinking on his own Full Code Lovenox requires continued hospital stay for safe disposition and medication management for Somnolence and altered mentation pending safe discharge plan . Quality Stroke Does the patient have a stroke diagnosis?: No VTE Prior VTE?: No VTE Risk Level:: Medical - moderate - high VTE Device Contraindication: Treatment Not Indicated VTE Drug Contraindication: N/A - Med Ordered
[2023-05-14] MEDS: QUEtiapine Fumarate 25 MG TABLET PO ×3 (08:41→22:21)
[2023-05-14] MEDS: Sertraline HCL 100 MG TABLET PO (08:42)
[2023-05-14] MEDS: Folic Acid 1 MG TABLET PO (08:42)
[2023-05-14] MEDS: Clopidogrel Bisulfate 75 MG TABLET PO (08:42)
[2023-05-14] MEDS: carvediloL 3.125 MG TABLET PO ×2 (08:42→22:21)
[2023-05-14] MEDS: Acetaminophen 325 MG TABLET 975 MG PO ×3 (08:42→22:20)
[2023-05-14] MEDS: Aspirin Enteric Coated 81 MG TABLET.DR PO (08:42)
[2023-05-14] MEDS: Furosemide 40 MG TABLET PO (08:42)
--- NOTE | 2023-05-14 10:55 | PC.NURSE ---
Mr. Villalobos was hoyered with 2A into the recliner chair this shift. Pt was only able to tolerate approximately 30-45 mins in chair pt then began to endorse pain in his buttocks and started yelling out. Pt as hoyered back into bed. Foam dressing on upper back changed, foam dressings applied to coccyx and heels for preventative measures, skin on BLE dry, petroleum based ointment applied. All safety measures in place.
[2023-05-14 11:40] LABS: Glucose, Whole Blood 148 mg/dL (60-115)
--- NOTE | 2023-05-14 13:05 | MHC.CM.PN ---
call placed to [facility] leaving messages for helga maya 2 in admissions
[2023-05-14 14:49] VITALS: BP 146/68; PULSE 67; RESP 18; TEMP 36.1; O2SAT 97
[2023-05-14 15:30] VITALS: BP 146/68; PULSE 67; O2SAT 97
--- NOTE | 2023-05-14 15:42 | MHC.CM.PN ---
received call from helga and then carlos manuel they were given clinical updates by pt,pts rn,sw and nurse cm ..if pt accpted bed will be available next week
[2023-05-14 16:25] LABS: Glucose, Whole Blood 140 mg/dL (60-115)
[2023-05-14] MEDS: metFORMIN HCl ER 500 MG TAB.ER.24H PO (17:01)
[2023-05-14 19:30] VITALS: BP 128/60; PULSE 67; RESP 19; TEMP 36.8; O2SAT 96
[2023-05-14 20:36] LABS: Glucose, Whole Blood 131 mg/dL (60-115)
[2023-05-14] MEDS: Sennosides 8.6 MG TABLET 17.2 MG PO (22:20)
[2023-05-14] MEDS: Atorvastatin Calcium 40 MG TABLET PO (22:21)
[2023-05-14] MEDS: Enoxaparin Sodium 40 MG/0.4 ML SYRINGE SUBCUT (22:24)
[2023-05-15 03:20] VITALS: BP 114/57; PULSE 60; RESP 19; TEMP 37.1; O2SAT 94
[2023-05-15] MEDS: Omeprazole 20 MG CAPSULE.DR PO (05:33)
[2023-05-15 07:25] VITALS: BP 118/58; PULSE 72; RESP 16; TEMP 36.2; O2SAT 91
[2023-05-15] MEDS: Fluticasone/Umeclidinium/Vilanterol 200/62.5/25 BLST.W.DEV 1 PUFF INHALE (07:33)
[2023-05-15 07:34] VITALS: PULSE 72; RESP 16; O2SAT 94
[2023-05-15 07:37] LABS: Glucose, Whole Blood 108 mg/dL (60-115)
--- NOTE | 2023-05-15 08:48 | HO.PM.IMPN ---
Subjective Subjective Date of Service: 05/15/23 Interval History: denies new complaints Physical Exam Vital Signs: Vital Signs: Last Vital Signs Temp 97.1 F 05/15/23 07:25 Pulse 72 05/15/23 07:34 Resp 16 05/15/23 07:34 BP 118/58 L 05/15/23 07:25 Pulse Ox 91 L 05/15/23 07:25 O2 Del Method Nasal Cannula 05/15/23 07:25 O2 Flow Rate 2.0 05/15/23 07:25 Oxygen Flow Rate 3 03/15/23 18:32 BMI result Body Mass Index 44.3 Const: Other: Constitutional : alert, interactive, not in distress Neck : Normal inspection, Supple Cardiovascular : RRR, no JVP, no lower extremity edema Respiratory : good bilateral air entry, no crackles, wheezes or rhonchi Gastrointestinal: soft, lax, Normal bowel sounds, Non tender Skin : Warm, Dry Neurological : Alert , oriented x3, moving all extremities Objective Data Active Medications Acetaminophen (Acetaminophen 325 Mg Tablet) 975 mg PO TID [facility] Last Admin: 05/14/23 22:20 Dose: 975 mg Documented By: KEARA Al Hydroxide/Mg Hydroxide (Magnesium Hydrox/Alum Hydrox 30 Ml Oral.Susp) 30 ml PO Q6H PRN PRN Reason: dyspepsia Albuterol Sulfate (Albuterol Sulfate 90 Mcg 8 Gm Inhaler) 2 puff INHALE Q4H PRN PRN Reason: Wheezing Aspirin (Aspirin Enteric Coated 81 Mg Tablet.) 81 mg PO DAILY [facility] Last Admin: 05/14/23 08:42 Dose: 81 mg Documented By: BRENDEN Atorvastatin Calcium (Atorvastatin Calcium 40 Mg Tablet) 40 mg PO BEDTIME [facility] Last Admin: 05/14/23 22:21 Dose: 40 mg Documented By: KEARA Carvedilol (Carvedilol 3.125 Mg Tablet) 3.125 mg PO BID [facility]; Protocol Last Admin: 05/14/23 22:21 Dose: 3.125 mg Documented By: KEARA Clopidogrel Bisulfate (Clopidogrel Bisulfate 75 Mg Tablet) 75 mg PO DAILY [facility] Last Admin: 05/14/23 08:42 Dose: 75 mg Documented By: BRENDEN Cyanocobalamin (Cyanocobalamin (Vitamin B-12) 1,000 Mcg/Ml Vial) 1,000 mcg IM Q30D [facility] Last Admin: 05/08/23 09:05 Dose: Not Given Documented By: ALEXA Non-Admin Reason: Patient Refused Dextrose (Dextrose 50 % 25 Gm/50 Ml Syringe) 25 gm IVPUSH Q15M PRN; Protocol PRN Reason: per Hypoglycemia Standing Ord. Docusate Sodium (Docusate Sodium 100 Mg Capsule) 100 mg PO BID PRN PRN Reason: Constipation Enoxaparin Sodium (Enoxaparin Sodium 40 Mg/0.4 Ml Syringe) 40 mg SUBCUT Q24H [facility] Last Admin: 05/14/23 22:24 Dose: 40 mg Documented By: KEARA Fluticasone/Umeclidinium/Vilanterol (Fluticasone/Umeclidinium/Vilanterol 200/62.5/25 Blst.W.Dev) 1 puff INHALE RDAILY [facility] Last Admin: 05/15/23 07:33 Dose: 1 puff Documented By: JASSI Folic Acid (Folic Acid 1 Mg Tablet) 1 mg PO DAILY [facility] Last Admin: 05/14/23 08:42 Dose: 1 mg Documented By: BRENDEN Furosemide (Furosemide 40 Mg Tablet) 40 mg PO DAILY [facility]; Protocol Last Admin: 05/14/23 08:42 Dose: 40 mg Documented By: BRENDEN Gabapentin (Gabapentin 100 Mg Capsule) 200 mg PO BID [facility] Last Admin: 05/05/23 09:49 Dose: 200 mg Documented By: LEANN Glucose (Glucose Gel 15 Gm Gel..Gram.) 15 gm PO Q15M PRN; Protocol PRN Reason: per Hypoglycemia Standing Ord. Insulin Human Lispro (Insulin Lispro 100 Unit/Ml 3 Ml Vial) 0 unit SUBCUT QIDACHS [facility]; Protocol Last Admin: 05/15/23 07:47 Dose: Not Given Documented By: CAT Non-Admin Reason: No Insulin Coverage Lactulose (Lactulose 20 Gm/30 Ml Solution) 10 gm PO DAILY PRN PRN Reason: Constipation Melatonin (Melatonin 3 Mg Tablet) 6 mg PO BEDTIME PRN PRN Reason: Insomnia Last Admin: 05/05/23 20:54 Dose: 6 mg Documented By: KRYSTLE Metformin HCl (Metformin Hcl Er 500 Mg Tab.Er.24h) 500 mg PO DAILY@1800 [facility] Last Admin: 05/14/23 17:01 Dose: 500 mg Documented By: BRENDEN Omeprazole (Omeprazole 20 Mg Capsule.Dr) 20 mg PO DAILY@0630 [facility] Last Admin: 05/15/23 05:33 Dose: 20 mg Documented By: KEARA Ondansetron HCl (Ondansetron Hcl 4 Mg/2 Ml Vial) 4 mg IVPUSH Q8H PRN PRN Reason: Nausea and Vomiting Last Admin: 04/05/23 12:43 Dose: 4 mg Documented By: FERMIN Polyethylene Glycol (Polyethylene Glycol 3350 17 Gm Powd.Pack) 17 gm PO DAILY PRN PRN Reason: Constipation Quetiapine Fumarate (Quetiapine Fumarate 50 Mg Tablet) 50 mg PO Q8H PRN PRN Reason: anxiety/restlessness Quetiapine Fumarate (Quetiapine Fumarate 25 Mg Tablet) 25 mg PO TID [facility] Last Admin: 05/14/23 22:21 Dose: 25 mg Documented By: KEARA Senna (Sennosides 8.6 Mg Tablet) 17.2 mg PO BEDTIME [facility] Last Admin: 05/14/23 22:20 Dose: 17.2 mg Documented By: KEARA Sertraline HCl (Sertraline Hcl 100 Mg Tablet) 100 mg PO DAILY [facility] Last Admin: 05/14/23 08:42 Dose: 100 mg Documented By: BRENDEN Sodium Chloride (0.9 % Sodium Chloride Flush 3 Ml Syringe) 3 ml IVFLUSH QSHIFT [facility] Last Admin: 05/15/23 07:47 Dose: Not Given Documented By: CAT Non-Admin Reason: No Access Trazodone HCl (Trazodone Hcl 50 Mg Tablet) 50 mg PO BEDTIME PRN PRN Reason: insomnia Last Admin: 05/13/23 20:46 Dose: 50 mg Documented By: BINH Labs 05/10/23 05:12 05/14/23 05:26 Labs: Laboratory Results - last 24 hr 05/14/23 05/14/23 05/14/23 11:33 16:15 20:28 POC Glucose 148 H 140 H 131 H 05/15/23 07:31 POC Glucose 108 Assessment and Plan (1) Toxic metabolic encephalopathy: Status: Acute (2) Major neurocognitive disorder: Status: Acute Plan 72M PMH significant for?CAD, [id number] diabetes type 2, who initially presented to the ED on 03/15/2023 from SNF after reportedly having hallucinations and being combative with staff. Pt was placed in physician observation in the ED until he became hypoxic and tested positive for COVID admitted to the medical floor for treatment and further evaluation of acute hypoxic respiratory failure in the setting of COVID infection and new awaiting Placement stable today Toxic metabolic encephalopathy more alert and interactive now Likely related to medications, hospital stay among others work up including head CTH, CBC, BMP, UA all have been negative. Concern for oversdation with meds, Lowered Seroquel to 25 mg tid with good response PRN Seroquel 50 tid if needed (did not have to use since 05/04) Psych input appreciated back lower Lumbar abcess s/p I and D, culture did not grow anything. Has completed course of Augmentin local wound care, no packing , foam dressing and change every other day Acute hypoxic respiratory failure in the setting COVID 19 infection, resolved Finished course of dexamethasone and remdesivir baseline home oxygen 2 L Left mid back discomfort lipoma, no acute intervention. HTN continue coreg, lasix morbid obesity weight loss advised [id number]-[id number] type 2 diabetes acceptable control on current therapies continue metformin lispro correctional scale adjust as needed Dehydration Post IVF, Bun/Creating better he is eating and drinking on his own Full Code Lovenox requires continued hospital stay for safe disposition and medication management for Somnolence and altered mentation pending safe discharge plan . Quality Stroke Does the patient have a stroke diagnosis?: No VTE Prior VTE?: No VTE Risk Level:: Medical - moderate - high VTE Device Contraindication: Treatment Not Indicated VTE Drug Contraindication: N/A - Med Ordered
[2023-05-15] MEDS: Aspirin Enteric Coated 81 MG TABLET.DR PO (09:27)
[2023-05-15] MEDS: QUEtiapine Fumarate 25 MG TABLET PO ×3 (09:27→21:58)
[2023-05-15] MEDS: Folic Acid 1 MG TABLET PO (09:27)
[2023-05-15] MEDS: carvediloL 3.125 MG TABLET PO ×2 (09:27→21:58)
[2023-05-15] MEDS: Sertraline HCL 100 MG TABLET PO (09:27)
[2023-05-15] MEDS: Furosemide 40 MG TABLET PO (09:27)
[2023-05-15] MEDS: Acetaminophen 325 MG TABLET 975 MG PO (09:27)
[2023-05-15] MEDS: Clopidogrel Bisulfate 75 MG TABLET PO (09:27)
[2023-05-15 11:29] LABS: Glucose, Whole Blood 116 mg/dL (60-115)
[2023-05-15 15:01] VITALS: BP 139/59; PULSE 64; RESP 16; TEMP 36.2; O2SAT 92
[2023-05-15 16:31] LABS: Glucose, Whole Blood 109 mg/dL (60-115)
[2023-05-15] MEDS: metFORMIN HCl ER 500 MG TAB.ER.24H PO (17:50)
[2023-05-15 19:27] VITALS: BP 136/63; PULSE 66; RESP 19; TEMP 36.5; O2SAT 94
[2023-05-15 20:27] LABS: Glucose, Whole Blood 118 mg/dL (60-115)
[2023-05-15] MEDS: Atorvastatin Calcium 40 MG TABLET PO (21:58)
[2023-05-15] MEDS: Sennosides 8.6 MG TABLET 17.2 MG PO (21:58)
[2023-05-15] MEDS: Enoxaparin Sodium 40 MG/0.4 ML SYRINGE SUBCUT (21:58)
[2023-05-16 03:45] VITALS: BP 126/59; PULSE 71; RESP 16; TEMP 36.2; O2SAT 92
[2023-05-16] MEDS: Omeprazole 20 MG CAPSULE.DR PO (05:54)
[2023-05-16 07:39] LABS: Glucose, Whole Blood 101 mg/dL (60-115)
[2023-05-16] MEDS: Fluticasone/Umeclidinium/Vilanterol 200/62.5/25 BLST.W.DEV 1 PUFF INHALE (07:48)
[2023-05-16 07:51] VITALS: PULSE 68; RESP 16; O2SAT 93
[2023-05-16 08:00] VITALS: BP 137/60; PULSE 63; RESP 18; TEMP 36.3; O2SAT 93
[2023-05-16] MEDS: Clopidogrel Bisulfate 75 MG TABLET PO (08:20)
[2023-05-16] MEDS: Furosemide 40 MG TABLET PO (08:20)
[2023-05-16] MEDS: Sertraline HCL 100 MG TABLET PO (08:20)
[2023-05-16] MEDS: carvediloL 3.125 MG TABLET PO ×2 (08:20→21:51)
[2023-05-16] MEDS: QUEtiapine Fumarate 25 MG TABLET PO ×3 (08:20→21:51)
[2023-05-16] MEDS: Aspirin Enteric Coated 81 MG TABLET.DR PO (08:20)
[2023-05-16] MEDS: Folic Acid 1 MG TABLET PO (08:20)
--- NOTE | 2023-05-16 08:24 | HO.PM.IMPN ---
Subjective Subjective Date of Service: 05/16/23 Interval History: no changes Physical Exam Vital Signs: Vital Signs: Last Vital Signs Temp 97.3 F 05/16/23 08:00 Pulse 63 05/16/23 08:00 Resp 18 05/16/23 08:00 BP 137/60 05/16/23 08:00 Pulse Ox 93 05/16/23 08:00 O2 Del Method Nasal Cannula 05/16/23 08:00 O2 Flow Rate 2.0 05/16/23 08:00 Oxygen Flow Rate 3 03/15/23 18:32 BMI result Body Mass Index 44.3 Const: Other: Constitutional : alert, interactive, not in distress Neck : Normal inspection, Supple Cardiovascular : RRR, no JVP, no lower extremity edema Respiratory : good bilateral air entry, no crackles, wheezes or rhonchi Gastrointestinal: soft, lax, Normal bowel sounds, Non tender Skin : Warm, Dry Neurological : Alert , oriented x3, moving all extremities Objective Data Active Medications Acetaminophen (Acetaminophen 325 Mg Tablet) 975 mg PO TID [facility] Last Admin: 05/16/23 08:20 Dose: Not Given Documented By: CAT Non-Admin Reason: Patient Refused Al Hydroxide/Mg Hydroxide (Magnesium Hydrox/Alum Hydrox 30 Ml Oral.Susp) 30 ml PO Q6H PRN PRN Reason: dyspepsia Albuterol Sulfate (Albuterol Sulfate 90 Mcg 8 Gm Inhaler) 2 puff INHALE Q4H PRN PRN Reason: Wheezing Aspirin (Aspirin Enteric Coated 81 Mg Tablet.) 81 mg PO DAILY [facility] Last Admin: 05/16/23 08:20 Dose: 81 mg Documented By: CAT Atorvastatin Calcium (Atorvastatin Calcium 40 Mg Tablet) 40 mg PO BEDTIME [facility] Last Admin: 05/15/23 21:58 Dose: 40 mg Documented By: KEARA Carvedilol (Carvedilol 3.125 Mg Tablet) 3.125 mg PO BID [facility]; Protocol Last Admin: 05/16/23 08:20 Dose: 3.125 mg Documented By: CAT Clopidogrel Bisulfate (Clopidogrel Bisulfate 75 Mg Tablet) 75 mg PO DAILY [facility] Last Admin: 05/16/23 08:20 Dose: 75 mg Documented By: CAT Cyanocobalamin (Cyanocobalamin (Vitamin B-12) 1,000 Mcg/Ml Vial) 1,000 mcg IM Q30D [facility] Last Admin: 05/08/23 09:05 Dose: Not Given Documented By: ALEXA Non-Admin Reason: Patient Refused Dextrose (Dextrose 50 % 25 Gm/50 Ml Syringe) 25 gm IVPUSH Q15M PRN; Protocol PRN Reason: per Hypoglycemia Standing Ord. Docusate Sodium (Docusate Sodium 100 Mg Capsule) 100 mg PO BID PRN PRN Reason: Constipation Enoxaparin Sodium (Enoxaparin Sodium 40 Mg/0.4 Ml Syringe) 40 mg SUBCUT Q24H [facility] Last Admin: 05/15/23 21:58 Dose: 40 mg Documented By: KEARA Fluticasone/Umeclidinium/Vilanterol (Fluticasone/Umeclidinium/Vilanterol 200/62.5/25 Blst.W.Dev) 1 puff INHALE RDAILY [facility] Last Admin: 05/16/23 07:48 Dose: 1 puff Documented By: MAURICE Folic Acid (Folic Acid 1 Mg Tablet) 1 mg PO DAILY [facility] Last Admin: 05/16/23 08:20 Dose: 1 mg Documented By: CAT Furosemide (Furosemide 40 Mg Tablet) 40 mg PO DAILY [facility]; Protocol Last Admin: 05/16/23 08:20 Dose: 40 mg Documented By: CAT Gabapentin (Gabapentin 100 Mg Capsule) 200 mg PO BID [facility] Last Admin: 05/05/23 09:49 Dose: 200 mg Documented By: LEANN Glucose (Glucose Gel 15 Gm Gel..Gram.) 15 gm PO Q15M PRN; Protocol PRN Reason: per Hypoglycemia Standing Ord. Insulin Human Lispro (Insulin Lispro 100 Unit/Ml 3 Ml Vial) 0 unit SUBCUT QIDACHS [facility]; Protocol Last Admin: 05/16/23 07:51 Dose: Not Given Documented By: CAT Non-Admin Reason: No Insulin Coverage Lactulose (Lactulose 20 Gm/30 Ml Solution) 10 gm PO DAILY PRN PRN Reason: Constipation Melatonin (Melatonin 3 Mg Tablet) 6 mg PO BEDTIME PRN PRN Reason: Insomnia Last Admin: 05/05/23 20:54 Dose: 6 mg Documented By: KRYSTLE Metformin HCl (Metformin Hcl Er 500 Mg Tab.Er.24h) 500 mg PO DAILY@1800 [facility] Last Admin: 05/15/23 17:50 Dose: 500 mg Documented By: HAYLEY Omeprazole (Omeprazole 20 Mg Capsule.Dr) 20 mg PO DAILY@0630 [facility] Last Admin: 05/16/23 05:54 Dose: 20 mg Documented By: KEARA Ondansetron HCl (Ondansetron Hcl 4 Mg/2 Ml Vial) 4 mg IVPUSH Q8H PRN PRN Reason: Nausea and Vomiting Last Admin: 04/05/23 12:43 Dose: 4 mg Documented By: FERMIN Polyethylene Glycol (Polyethylene Glycol 3350 17 Gm Powd.Pack) 17 gm PO DAILY PRN PRN Reason: Constipation Quetiapine Fumarate (Quetiapine Fumarate 50 Mg Tablet) 50 mg PO Q8H PRN PRN Reason: anxiety/restlessness Quetiapine Fumarate (Quetiapine Fumarate 25 Mg Tablet) 25 mg PO TID [facility] Last Admin: 05/16/23 08:20 Dose: 25 mg Documented By: CAT Senna (Sennosides 8.6 Mg Tablet) 17.2 mg PO BEDTIME [facility] Last Admin: 05/15/23 21:58 Dose: 17.2 mg Documented By: KEARA Sertraline HCl (Sertraline Hcl 100 Mg Tablet) 100 mg PO DAILY [facility] Last Admin: 05/16/23 08:20 Dose: 100 mg Documented By: CAT Sodium Chloride (0.9 % Sodium Chloride Flush 3 Ml Syringe) 3 ml IVFLUSH QSHIFT [facility] Last Admin: 05/16/23 08:20 Dose: Not Given Documented By: CAT Non-Admin Reason: No Access Trazodone HCl (Trazodone Hcl 50 Mg Tablet) 50 mg PO BEDTIME PRN PRN Reason: insomnia Last Admin: 05/13/23 20:46 Dose: 50 mg Documented By: BINH Labs 05/10/23 05:12 05/14/23 05:26 Labs: Laboratory Results - last 24 hr 05/15/23 05/15/23 05/15/23 11:22 16:25 20:17 POC Glucose 116 H 109 118 H 05/16/23 07:17 POC Glucose 101 Assessment and Plan (1) Toxic metabolic encephalopathy: Status: Acute (2) Major neurocognitive disorder: Status: Acute Plan 72M PMH significant for?CAD, [id number]-iuvpveuya diabetes type 2, who initially presented to the ED on 03/15/2023 from SNF after reportedly having hallucinations and being combative with staff. Pt was placed in physician observation in the ED until he became hypoxic and tested positive for COVID admitted to the medical floor for treatment and further evaluation of acute hypoxic respiratory failure in the setting of COVID infection and new awaiting Placement no changes today Toxic metabolic encephalopathy more alert and interactive now Likely related to medications, hospital stay among others work up including head CTH, CBC, BMP, UA all have been negative. Concern for oversdation with meds, Lowered Seroquel to 25 mg tid with good response PRN Seroquel 50 tid if needed (did not have to use since 05/04) Psych input appreciated back lower Lumbar abcess s/p I and D, culture did not grow anything. Has completed course of Augmentin local wound care, no packing , foam dressing and change every other day Acute hypoxic respiratory failure in the setting COVID 19 infection, resolved Finished course of dexamethasone and remdesivir baseline home oxygen 2 L Left mid back discomfort lipoma, no acute intervention. HTN continue coreg, lasix morbid obesity weight loss advised Tvx-locaobl-nrejkcamk type 2 diabetes acceptable control on current therapies continue metformin lispro correctional scale adjust as needed Dehydration Post IVF, Bun/Creating better he is eating and drinking on his own Full Code Lovenox requires continued hospital stay for safe disposition and medication management for Somnolence and altered mentation pending safe discharge plan . Quality Stroke Does the patient have a stroke diagnosis?: No VTE Prior VTE?: No VTE Risk Level:: Medical - moderate - high VTE Device Contraindication: Treatment Not Indicated VTE Drug Contraindication: N/A - Med Ordered
--- NOTE | 2023-05-16 09:26 | PC.NURSE ---
Patient accepting turning and repositioning, however is favouring right side laying down in bed. Foam applied to right hip for protection. Skin pink and blanchable- remains intact.
[2023-05-16 11:30] LABS: Glucose, Whole Blood 137 mg/dL (60-115)
[2023-05-16 15:17] VITALS: BP 128/61; PULSE 66; RESP 16; TEMP 36.2; O2SAT 95
[2023-05-16 16:27] LABS: Glucose, Whole Blood 152 mg/dL (60-115)
[2023-05-16] MEDS: metFORMIN HCl ER 500 MG TAB.ER.24H PO (17:07)
[2023-05-16] MEDS: Insulin Lispro 100 UNIT/ML 3 ML VIAL SUBCUT (17:07)
[2023-05-16] MEDS: Enoxaparin Sodium 40 MG/0.4 ML SYRINGE SUBCUT (19:12)
[2023-05-16 19:19] VITALS: BP 152/69; PULSE 66; RESP 19; TEMP 36.5; O2SAT 95
[2023-05-16 20:31] LABS: Glucose, Whole Blood 95 mg/dL (60-115)
[2023-05-16] MEDS: Acetaminophen 325 MG TABLET 975 MG PO (21:51)
[2023-05-16] MEDS: Atorvastatin Calcium 40 MG TABLET PO (21:51)
[2023-05-16] MEDS: Sennosides 8.6 MG TABLET 17.2 MG PO (21:51)
[2023-05-17 03:35] VITALS: BP 119/54; PULSE 62; RESP 18; TEMP 36.7; O2SAT 94
[2023-05-17] MEDS: Omeprazole 20 MG CAPSULE.DR PO (05:51)
[2023-05-17 07:09] VITALS: BP 135/60; PULSE 60; RESP 18; TEMP 36.6; O2SAT 95
[2023-05-17] MEDS: Fluticasone/Umeclidinium/Vilanterol 200/62.5/25 BLST.W.DEV 1 PUFF INHALE (07:38)
[2023-05-17 07:39] VITALS: PULSE 60; RESP 18; O2SAT 92
[2023-05-17 07:51] LABS: Glucose, Whole Blood 106 mg/dL (60-115)
[2023-05-17] MEDS: Aspirin Enteric Coated 81 MG TABLET.DR PO (08:35)
[2023-05-17] MEDS: Furosemide 40 MG TABLET PO (08:35)
[2023-05-17] MEDS: carvediloL 3.125 MG TABLET PO ×2 (08:35→20:54)
[2023-05-17] MEDS: Sertraline HCL 100 MG TABLET PO (08:35)
[2023-05-17] MEDS: Folic Acid 1 MG TABLET PO (08:35)
[2023-05-17] MEDS: QUEtiapine Fumarate 25 MG TABLET PO ×3 (08:35→20:54)
[2023-05-17] MEDS: Clopidogrel Bisulfate 75 MG TABLET PO (08:35)
--- NOTE | 2023-05-17 08:47 | HO.PM.IMPN ---
Subjective Subjective Date of Service: 05/17/23 Interval History: no chest pain, no sob Physical Exam Vital Signs: Vital Signs: Last Vital Signs Temp 97.8 F 05/17/23 07:09 Pulse 60 05/17/23 07:39 Resp 18 05/17/23 07:39 BP 135/60 05/17/23 07:09 Pulse Ox 95 05/17/23 07:09 O2 Del Method Nasal Cannula 05/17/23 07:09 O2 Flow Rate 2 05/17/23 07:09 Oxygen Flow Rate 3 03/15/23 18:32 BMI result Body Mass Index 44.3 Const: Other: Constitutional : alert, interactive, not in distress Neck : Normal inspection, Supple Cardiovascular : RRR, no JVP, no lower extremity edema Respiratory : good bilateral air entry, no crackles, wheezes or rhonchi Gastrointestinal: soft, lax, Normal bowel sounds, Non tender Skin : Warm, Dry Neurological : Alert , oriented x3, moving all extremities Objective Data Active Medications Acetaminophen (Acetaminophen 325 Mg Tablet) 975 mg PO TID [facility] Last Admin: 05/17/23 08:35 Dose: Not Given Documented By: COTEMA Non-Admin Reason: Patient Refused Al Hydroxide/Mg Hydroxide (Magnesium Hydrox/Alum Hydrox 30 Ml Oral.Susp) 30 ml PO Q6H PRN PRN Reason: dyspepsia Albuterol Sulfate (Albuterol Sulfate 90 Mcg 8 Gm Inhaler) 2 puff INHALE Q4H PRN PRN Reason: Wheezing Aspirin (Aspirin Enteric Coated 81 Mg Tablet.) 81 mg PO DAILY [facility] Last Admin: 05/17/23 08:35 Dose: 81 mg Documented By: CARROLL Atorvastatin Calcium (Atorvastatin Calcium 40 Mg Tablet) 40 mg PO BEDTIME [facility] Last Admin: 05/16/23 21:51 Dose: 40 mg Documented By: MICHELLE Carvedilol (Carvedilol 3.125 Mg Tablet) 3.125 mg PO BID [facility]; Protocol Last Admin: 05/17/23 08:35 Dose: 3.125 mg Documented By: KANDIEMA Clopidogrel Bisulfate (Clopidogrel Bisulfate 75 Mg Tablet) 75 mg PO DAILY [facility] Last Admin: 05/17/23 08:35 Dose: 75 mg Documented By: COTEMA Cyanocobalamin (Cyanocobalamin (Vitamin B-12) 1,000 Mcg/Ml Vial) 1,000 mcg IM Q30D [facility] Last Admin: 05/08/23 09:05 Dose: Not Given Documented By: ALEXA Non-Admin Reason: Patient Refused Dextrose (Dextrose 50 % 25 Gm/50 Ml Syringe) 25 gm IVPUSH Q15M PRN; Protocol PRN Reason: per Hypoglycemia Standing Ord. Docusate Sodium (Docusate Sodium 100 Mg Capsule) 100 mg PO BID PRN PRN Reason: Constipation Enoxaparin Sodium (Enoxaparin Sodium 40 Mg/0.4 Ml Syringe) 40 mg SUBCUT Q24H [facility] Last Admin: 05/16/23 19:12 Dose: 40 mg Documented By: MICHELLE Fluticasone/Umeclidinium/Vilanterol (Fluticasone/Umeclidinium/Vilanterol 200/62.5/25 Blst.W.Dev) 1 puff INHALE RDAILY [facility] Last Admin: 05/17/23 07:38 Dose: 1 puff Documented By: JASSI Folic Acid (Folic Acid 1 Mg Tablet) 1 mg PO DAILY [facility] Last Admin: 05/17/23 08:35 Dose: 1 mg Documented By: COTEMA Furosemide (Furosemide 40 Mg Tablet) 40 mg PO DAILY [facility]; Protocol Last Admin: 05/17/23 08:35 Dose: 40 mg Documented By: CARROLL Gabapentin (Gabapentin 100 Mg Capsule) 200 mg PO BID [facility] Last Admin: 05/05/23 09:49 Dose: 200 mg Documented By: LEANN Glucose (Glucose Gel 15 Gm Gel..Gram.) 15 gm PO Q15M PRN; Protocol PRN Reason: per Hypoglycemia Standing Ord. Insulin Human Lispro (Insulin Lispro 100 Unit/Ml 3 Ml Vial) 0 unit SUBCUT QIDACHS [facility]; Protocol Last Admin: 05/17/23 07:53 Dose: Not Given Documented By: CARROLL Non-Admin Reason: No Insulin Coverage Lactulose (Lactulose 20 Gm/30 Ml Solution) 10 gm PO DAILY PRN PRN Reason: Constipation Melatonin (Melatonin 3 Mg Tablet) 6 mg PO BEDTIME PRN PRN Reason: Insomnia Last Admin: 05/05/23 20:54 Dose: 6 mg Documented By: KRYSTLE Metformin HCl (Metformin Hcl Er 500 Mg Tab.Er.24h) 500 mg PO DAILY@1800 [facility] Last Admin: 05/16/23 17:07 Dose: 500 mg Documented By: CAT Omeprazole (Omeprazole 20 Mg Capsule.Dr) 20 mg PO DAILY@0630 [facility] Last Admin: 05/17/23 05:51 Dose: 20 mg Documented By: MICHELLE Ondansetron HCl (Ondansetron Hcl 4 Mg/2 Ml Vial) 4 mg IVPUSH Q8H PRN PRN Reason: Nausea and Vomiting Last Admin: 04/05/23 12:43 Dose: 4 mg Documented By: FERMIN Polyethylene Glycol (Polyethylene Glycol 3350 17 Gm Powd.Pack) 17 gm PO DAILY PRN PRN Reason: Constipation Quetiapine Fumarate (Quetiapine Fumarate 50 Mg Tablet) 50 mg PO Q8H PRN PRN Reason: anxiety/restlessness Quetiapine Fumarate (Quetiapine Fumarate 25 Mg Tablet) 25 mg PO TID [facility] Last Admin: 05/17/23 08:35 Dose: 25 mg Documented By: CARROLL Senna (Sennosides 8.6 Mg Tablet) 17.2 mg PO BEDTIME [facility] Last Admin: 05/16/23 21:51 Dose: 17.2 mg Documented By: MICHELLE Sertraline HCl (Sertraline Hcl 100 Mg Tablet) 100 mg PO DAILY [facility] Last Admin: 05/17/23 08:35 Dose: 100 mg Documented By: CARROLL Sodium Chloride (0.9 % Sodium Chloride Flush 3 Ml Syringe) 3 ml IVFLUSH QSHIFT [facility] Last Admin: 05/17/23 07:54 Dose: Not Given Documented By: CARROLL Non-Admin Reason: No Access Trazodone HCl (Trazodone Hcl 50 Mg Tablet) 50 mg PO BEDTIME PRN PRN Reason: insomnia Last Admin: 05/13/23 20:46 Dose: 50 mg Documented By: BINH Labs 05/10/23 05:12 05/14/23 05:26 Labs: Laboratory Results - last 24 hr 05/16/23 05/16/23 05/16/23 11:25 16:07 20:24 POC Glucose 137 H 152 H 95 05/17/23 07:13 POC Glucose 106 Assessment and Plan (1) Toxic metabolic encephalopathy: Status: Acute (2) Major neurocognitive disorder: Status: Acute Plan 72M PMH significant for?CAD, rky-ohadmnx-hjintoanp diabetes type 2, who initially presented to the ED on 03/15/2023 from SNF after reportedly having hallucinations and being combative with staff. Pt was placed in physician observation in the ED until he became hypoxic and tested positive for COVID admitted to the medical floor for treatment and further evaluation of acute hypoxic respiratory failure in the setting of COVID infection and new awaiting Placement stable today Toxic metabolic encephalopathy more alert and interactive now Likely related to medications, hospital stay among others work up including head CTH, CBC, BMP, UA all have been negative. Concern for oversdation with meds, Lowered Seroquel to 25 mg tid with good response PRN Seroquel 50 tid if needed (did not have to use since 05/04) Psych input appreciated back lower Lumbar abcess s/p I and D, culture did not grow anything. Has completed course of Augmentin local wound care, no packing , foam dressing and change every other day Acute hypoxic respiratory failure in the setting COVID 19 infection, resolved Finished course of dexamethasone and remdesivir baseline home oxygen 2 L Left mid back discomfort lipoma, no acute intervention. HTN continue coreg, lasix morbid obesity weight loss advised Mta-eqqhvft-rjdmwvaoy type 2 diabetes acceptable control on current therapies continue metformin lispro correctional scale adjust as needed Dehydration Post IVF, Bun/Creating better he is eating and drinking on his own Full Code Lovenox requires continued hospital stay for safe disposition and medication management for Somnolence and altered mentation pending safe discharge plan . Quality Stroke Does the patient have a stroke diagnosis?: No VTE Prior VTE?: No VTE Risk Level:: Medical - moderate - high VTE Device Contraindication: Treatment Not Indicated VTE Drug Contraindication: N/A - Med Ordered
[2023-05-17 11:04] LABS: Glucose, Whole Blood 161 mg/dL (60-115)
[2023-05-17] MEDS: Insulin Lispro 100 UNIT/ML 3 ML VIAL SUBCUT (11:37)
--- NOTE | 2023-05-17 13:08 | MHC.CM.PN ---
pt remains in a bed search,[facility] considering pt await their decision
[2023-05-17 14:52] VITALS: BP 125/61; PULSE 63; RESP 18; TEMP 36.7; O2SAT 93
[2023-05-17 16:14] LABS: Glucose, Whole Blood 99 mg/dL (60-115)
[2023-05-17] MEDS: metFORMIN HCl ER 500 MG TAB.ER.24H PO (16:49)
[2023-05-17 19:18] VITALS: BP 123/58; PULSE 70; RESP 19; TEMP 36.8; O2SAT 96
[2023-05-17 19:59] LABS: Glucose, Whole Blood 144 mg/dL (60-115)
[2023-05-17] MEDS: Enoxaparin Sodium 40 MG/0.4 ML SYRINGE SUBCUT (20:54)
[2023-05-17] MEDS: Atorvastatin Calcium 40 MG TABLET PO (20:54)
[2023-05-17] MEDS: Sennosides 8.6 MG TABLET 17.2 MG PO (20:58)
[2023-05-18] MEDS: Omeprazole 20 MG CAPSULE.DR PO (05:35)
[2023-05-18] MEDS: Fluticasone/Umeclidinium/Vilanterol 200/62.5/25 BLST.W.DEV 1 PUFF INHALE (07:30)
[2023-05-18 07:31] VITALS: PULSE 70; RESP 19; O2SAT 93
[2023-05-18 07:46] LABS: Glucose, Whole Blood 97 mg/dL (60-115)
[2023-05-18 08:00] VITALS: BP 132/65; PULSE 87; RESP 12; TEMP 37; O2SAT 92
[2023-05-18] MEDS: Folic Acid 1 MG TABLET PO (08:45)
[2023-05-18] MEDS: QUEtiapine Fumarate 25 MG TABLET PO ×3 (08:45→20:41)
[2023-05-18] MEDS: Clopidogrel Bisulfate 75 MG TABLET PO (08:45)
[2023-05-18] MEDS: Aspirin Enteric Coated 81 MG TABLET.DR PO (08:45)
[2023-05-18] MEDS: carvediloL 3.125 MG TABLET PO ×2 (08:45→20:41)
[2023-05-18] MEDS: Furosemide 40 MG TABLET PO (08:45)
[2023-05-18] MEDS: Sertraline HCL 100 MG TABLET PO (08:45)
--- NOTE | 2023-05-18 08:47 | HO.PM.IMPN ---
Subjective Subjective Date of Service: 05/18/23 Interval History: no new complaints, Physical Exam Vital Signs: Vital Signs: Last Vital Signs Temp 98.6 F 05/18/23 08:00 Pulse 87 05/18/23 08:00 Resp 12 05/18/23 08:00 BP 132/65 05/18/23 08:00 Pulse Ox 92 05/18/23 08:00 O2 Del Method Nasal Cannula 05/18/23 08:00 O2 Flow Rate 2 05/18/23 08:00 Oxygen Flow Rate 3 03/15/23 18:32 BMI result Body Mass Index 44.3 Const: Other: Constitutional : alert, interactive, not in distress Neck : Normal inspection, Supple Cardiovascular : RRR, no JVP, no lower extremity edema Respiratory : good bilateral air entry, no crackles, wheezes or rhonchi Gastrointestinal: soft, lax, Normal bowel sounds, Non tender Skin : Warm, Dry Neurological : Alert , oriented x3, moving all extremities Objective Data Active Medications Acetaminophen (Acetaminophen 325 Mg Tablet) 975 mg PO TID [facility] Last Admin: 05/18/23 07:56 Dose: Not Given Documented By: COTEMA Non-Admin Reason: Patient Refused Al Hydroxide/Mg Hydroxide (Magnesium Hydrox/Alum Hydrox 30 Ml Oral.Susp) 30 ml PO Q6H PRN PRN Reason: dyspepsia Albuterol Sulfate (Albuterol Sulfate 90 Mcg 8 Gm Inhaler) 2 puff INHALE Q4H PRN PRN Reason: Wheezing Aspirin (Aspirin Enteric Coated 81 Mg Tablet.) 81 mg PO DAILY [facility] Last Admin: 05/18/23 08:45 Dose: 81 mg Documented By: CARROLL Atorvastatin Calcium (Atorvastatin Calcium 40 Mg Tablet) 40 mg PO BEDTIME [facility] Last Admin: 05/17/23 20:54 Dose: 40 mg Documented By: BINH Carvedilol (Carvedilol 3.125 Mg Tablet) 3.125 mg PO BID [facility]; Protocol Last Admin: 05/18/23 08:45 Dose: 3.125 mg Documented By: COTEMA Clopidogrel Bisulfate (Clopidogrel Bisulfate 75 Mg Tablet) 75 mg PO DAILY [facility] Last Admin: 05/18/23 08:45 Dose: 75 mg Documented By: COTEMA Cyanocobalamin (Cyanocobalamin (Vitamin B-12) 1,000 Mcg/Ml Vial) 1,000 mcg IM Q30D [facility] Last Admin: 05/08/23 09:05 Dose: Not Given Documented By: ALEXA Non-Admin Reason: Patient Refused Dextrose (Dextrose 50 % 25 Gm/50 Ml Syringe) 25 gm IVPUSH Q15M PRN; Protocol PRN Reason: per Hypoglycemia Standing Ord. Docusate Sodium (Docusate Sodium 100 Mg Capsule) 100 mg PO BID PRN PRN Reason: Constipation Enoxaparin Sodium (Enoxaparin Sodium 40 Mg/0.4 Ml Syringe) 40 mg SUBCUT Q24H [facility] Last Admin: 05/17/23 20:54 Dose: 40 mg Documented By: BINH Fluticasone/Umeclidinium/Vilanterol (Fluticasone/Umeclidinium/Vilanterol 200/62.5/25 Blst.W.Dev) 1 puff INHALE RDAILY [facility] Last Admin: 05/18/23 07:30 Dose: 1 puff Documented By: JASSI Folic Acid (Folic Acid 1 Mg Tablet) 1 mg PO DAILY [facility] Last Admin: 05/18/23 08:45 Dose: 1 mg Documented By: COTEMA Furosemide (Furosemide 40 Mg Tablet) 40 mg PO DAILY [facility]; Protocol Last Admin: 05/18/23 08:45 Dose: 40 mg Documented By: CARROLL Gabapentin (Gabapentin 100 Mg Capsule) 200 mg PO BID [facility] Last Admin: 05/05/23 09:49 Dose: 200 mg Documented By: LEANN Glucose (Glucose Gel 15 Gm Gel..Gram.) 15 gm PO Q15M PRN; Protocol PRN Reason: per Hypoglycemia Standing Ord. Insulin Human Lispro (Insulin Lispro 100 Unit/Ml 3 Ml Vial) 0 unit SUBCUT QIDACHS [facility]; Protocol Last Admin: 05/18/23 07:48 Dose: Not Given Documented By: ACRROLL Non-Admin Reason: No Insulin Coverage Lactulose (Lactulose 20 Gm/30 Ml Solution) 10 gm PO DAILY PRN PRN Reason: Constipation Melatonin (Melatonin 3 Mg Tablet) 6 mg PO BEDTIME PRN PRN Reason: Insomnia Last Admin: 05/05/23 20:54 Dose: 6 mg Documented By: KRYSTLE Metformin HCl (Metformin Hcl Er 500 Mg Tab.Er.24h) 500 mg PO DAILY@1800 [facility] Last Admin: 05/17/23 16:49 Dose: 500 mg Documented By: CARROLL Omeprazole (Omeprazole 20 Mg Capsule.Dr) 20 mg PO DAILY@0630 [facility] Last Admin: 05/18/23 05:35 Dose: 20 mg Documented By: BINH Ondansetron HCl (Ondansetron Hcl 4 Mg/2 Ml Vial) 4 mg IVPUSH Q8H PRN PRN Reason: Nausea and Vomiting Last Admin: 04/05/23 12:43 Dose: 4 mg Documented By: FERMIN Polyethylene Glycol (Polyethylene Glycol 3350 17 Gm Powd.Pack) 17 gm PO DAILY PRN PRN Reason: Constipation Quetiapine Fumarate (Quetiapine Fumarate 50 Mg Tablet) 50 mg PO Q8H PRN PRN Reason: anxiety/restlessness Quetiapine Fumarate (Quetiapine Fumarate 25 Mg Tablet) 25 mg PO TID [facility] Last Admin: 05/18/23 08:45 Dose: 25 mg Documented By: CARROLL Senna (Sennosides 8.6 Mg Tablet) 17.2 mg PO BEDTIME [facility] Last Admin: 05/17/23 20:58 Dose: 17.2 mg Documented By: BINH Sertraline HCl (Sertraline Hcl 100 Mg Tablet) 100 mg PO DAILY [facility] Last Admin: 05/18/23 08:45 Dose: 100 mg Documented By: CARROLL Sodium Chloride (0.9 % Sodium Chloride Flush 3 Ml Syringe) 3 ml IVFLUSH QSHIFT [facility] Last Admin: 05/18/23 07:51 Dose: Not Given Documented By: CARROLL Non-Admin Reason: No Access Trazodone HCl (Trazodone Hcl 50 Mg Tablet) 50 mg PO BEDTIME PRN PRN Reason: insomnia Last Admin: 05/13/23 20:46 Dose: 50 mg Documented By: BINH Labs 05/10/23 05:12 05/14/23 05:26 Labs: Laboratory Results - last 24 hr 05/17/23 05/17/23 05/17/23 10:55 16:04 19:49 POC Glucose 161 H 99 144 H 05/18/23 07:19 POC Glucose 97 Assessment and Plan (1) Toxic metabolic encephalopathy: Status: Acute (2) Major neurocognitive disorder: Status: Acute Plan 72M PMH significant for?CAD, bls-iolxrzg-gcyylxwva diabetes type 2, who initially presented to the ED on 03/15/2023 from SNF after reportedly having hallucinations and being combative with staff. Pt was placed in physician observation in the ED until he became hypoxic and tested positive for COVID admitted to the medical floor for treatment and further evaluation of acute hypoxic respiratory failure in the setting of COVID infection and new awaiting Placement Toxic metabolic encephalopathy more alert and interactive now Likely related to medications, hospital stay among others work up including head CTH, CBC, BMP, UA all have been negative. Concern for oversdation with meds, Lowered Seroquel to 25 mg tid with good response PRN Seroquel 50 tid if needed (did not have to use since 05/04) Psych input appreciated back lower Lumbar abcess s/p I and D, culture did not grow anything. Has completed course of Augmentin local wound care, no packing , foam dressing and change every other day Acute hypoxic respiratory failure in the setting COVID 19 infection, resolved Finished course of dexamethasone and remdesivir baseline home oxygen 2 L Left mid back discomfort lipoma, no acute intervention. HTN continue coreg, lasix morbid obesity weight loss advised Srd-fldhvfg-fkxoxqrqf type 2 diabetes acceptable control on current therapies continue metformin lispro correctional scale adjust as needed Dehydration Post IVF, Bun/Creating better he is eating and drinking on his own Full Code Lovenox requires continued hospital stay for safe disposition and medication management for Somnolence and altered mentation pending safe discharge plan . Quality Stroke Does the patient have a stroke diagnosis?: No VTE Prior VTE?: No VTE Risk Level:: Medical - moderate - high VTE Device Contraindication: Treatment Not Indicated VTE Drug Contraindication: N/A - Med Ordered
[2023-05-18 11:18] LABS: Glucose, Whole Blood 142 mg/dL (60-115)
[2023-05-18 15:07] VITALS: BP 137/65; PULSE 61; RESP 18; TEMP 36.9; O2SAT 94
[2023-05-18 16:14] LABS: Glucose, Whole Blood 121 mg/dL (60-115)
[2023-05-18] MEDS: metFORMIN HCl ER 500 MG TAB.ER.24H PO (16:29)
[2023-05-18 19:09] VITALS: BP 109/53; PULSE 60; RESP 18; TEMP 36.4; O2SAT 93
[2023-05-18] MEDS: Enoxaparin Sodium 40 MG/0.4 ML SYRINGE SUBCUT (20:41)
[2023-05-18] MEDS: Atorvastatin Calcium 40 MG TABLET PO (20:41)
[2023-05-18] MEDS: Sennosides 8.6 MG TABLET 17.2 MG PO (20:41)
[2023-05-18 20:47] LABS: Glucose, Whole Blood 119 mg/dL (60-115)
[2023-05-19 03:07] VITALS: BP 131/69; PULSE 69; RESP 18; TEMP 36.2; O2SAT 92
[2023-05-19 05:32] LABS: Hematocrit 36.5 % (42.0-52.0); Hemoglobin 11.9 g/dl (14.0-18.0); Mean Corpuscular HGB Conc 32.6 g/dl (31.0-36.0); Mean Corpuscular Volume 101.1 fL (80.0-98.0); Mean Platelet Volume 9.3 fL (9.4-12.4); Platelet Count 142 X10*3/uL (160-400); Red Blood Count 3.61 X10*6/uL (4.60-5.80); Red Cell Distribution Width 14.6 % (11.0-16.0); White Blood Count 6.7 X10*3/uL (4.8-10.8)
[2023-05-19] MEDS: Omeprazole 20 MG CAPSULE.DR PO (05:41)
[2023-05-19 05:47] LABS: Anion Gap 11 (12-20); Blood Urea Nitrogen 20 mg/dL (9-16); Calcium 9.2 mg/dL (8.4-10.2); Carbon Dioxide 32 mmol/L (22-29); Chloride 103 mmol/L (96-108); Creatinine Clr Calc Pharmacy 86.7; Estimated Glomerular Filt Rate > 60; Glucose Fasting 97 mg/dL (60-99); Potassium 3.7 mmol/L (3.3-5.1); Sodium 142 mmol/L (135-145)
[2023-05-19 07:01] VITALS: BP 142/65; PULSE 64; RESP 17; TEMP 36.6; O2SAT 93
[2023-05-19 07:12] LABS: Glucose, Whole Blood 101 mg/dL (60-115)
[2023-05-19] MEDS: QUEtiapine Fumarate 25 MG TABLET PO ×3 (08:02→21:56)
[2023-05-19] MEDS: Fluticasone/Umeclidinium/Vilanterol 200/62.5/25 BLST.W.DEV 1 PUFF INHALE (08:03)
[2023-05-19] MEDS: Aspirin Enteric Coated 81 MG TABLET.DR PO (08:03)
[2023-05-19] MEDS: Acetaminophen 325 MG TABLET 975 MG PO ×3 (08:03→21:55)
[2023-05-19] MEDS: Sertraline HCL 100 MG TABLET PO (08:04)
[2023-05-19] MEDS: Clopidogrel Bisulfate 75 MG TABLET PO (08:04)
[2023-05-19] MEDS: carvediloL 3.125 MG TABLET PO ×2 (08:04→21:56)
[2023-05-19] MEDS: Furosemide 40 MG TABLET PO (08:04)
[2023-05-19] MEDS: Folic Acid 1 MG TABLET PO (08:04)
[2023-05-19 08:05] VITALS: PULSE 69; RESP 16; O2SAT 92
[2023-05-19 11:10] LABS: Glucose, Whole Blood 116 mg/dL (60-115)
--- NOTE | 2023-05-19 11:57 | P.PNIM_ITS ---
Subjective Subjective Date of Service: 05/19/23 Interval History: Seen and evaluated this morning alert and interactive denies any complaints Review of Systems Review of Systems: Yes all other systems are reviewed and are negative Physical Exam 2 Vital Signs: Vital Signs: Last Vital Signs Temp 98 F 05/19/23 07:01 Pulse 69 05/19/23 08:05 Resp 16 05/19/23 08:05 BP 142/65 H 05/19/23 07:01 Pulse Ox 93 05/19/23 07:01 O2 Del Method Nasal Cannula 05/19/23 07:01 O2 Flow Rate 2 05/19/23 07:01 Oxygen Flow Rate 3 03/15/23 18:32 BMI result Body Mass Index 44.3 Const: Other: Constitutional : alert, interactive, not in distress Neck : Normal inspection, Supple Cardiovascular : RRR, no JVP, no lower extremity edema Respiratory : good bilateral air entry, no crackles, wheezes or rhonchi Gastrointestinal: soft, lax, Normal bowel sounds, Non tender Skin : Warm, Dry Neurological : Alert , oriented x3, moving all extremities Objective Data Active Medications Acetaminophen (Acetaminophen 325 Mg Tablet) 975 mg PO TID [facility] Last Admin: 05/19/23 08:03 Dose: 975 mg Documented By: LEANN Al Hydroxide/Mg Hydroxide (Magnesium Hydrox/Alum Hydrox 30 Ml Oral.Susp) 30 ml PO Q6H PRN PRN Reason: dyspepsia Albuterol Sulfate (Albuterol Sulfate 90 Mcg 8 Gm Inhaler) 2 puff INHALE Q4H PRN PRN Reason: Wheezing Aspirin (Aspirin Enteric Coated 81 Mg Tablet.) 81 mg PO DAILY [facility] Last Admin: 05/19/23 08:03 Dose: 81 mg Documented By: LEANN Atorvastatin Calcium (Atorvastatin Calcium 40 Mg Tablet) 40 mg PO BEDTIME [facility] Last Admin: 05/18/23 20:41 Dose: 40 mg Documented By: WOOD Carvedilol (Carvedilol 3.125 Mg Tablet) 3.125 mg PO BID [facility]; Protocol Last Admin: 05/19/23 08:04 Dose: 3.125 mg Documented By: LEANN Clopidogrel Bisulfate (Clopidogrel Bisulfate 75 Mg Tablet) 75 mg PO DAILY [facility] Last Admin: 05/19/23 08:04 Dose: 75 mg Documented By: LEANN Cyanocobalamin (Cyanocobalamin (Vitamin B-12) 1,000 Mcg/Ml Vial) 1,000 mcg IM Q30D [facility] Last Admin: 05/08/23 09:05 Dose: Not Given Documented By: ALEXA Non-Admin Reason: Patient Refused Dextrose (Dextrose 50 % 25 Gm/50 Ml Syringe) 25 gm IVPUSH Q15M PRN; Protocol PRN Reason: per Hypoglycemia Standing Ord. Docusate Sodium (Docusate Sodium 100 Mg Capsule) 100 mg PO BID PRN PRN Reason: Constipation Enoxaparin Sodium (Enoxaparin Sodium 40 Mg/0.4 Ml Syringe) 40 mg SUBCUT Q24H [facility] Last Admin: 05/18/23 20:41 Dose: 40 mg Documented By: WOOD Fluticasone/Umeclidinium/Vilanterol (Fluticasone/Umeclidinium/Vilanterol 200/62.5/25 Blst.W.Dev) 1 puff INHALE RDAILY [facility] Last Admin: 05/19/23 08:03 Dose: 1 puff Documented By: JASON Folic Acid (Folic Acid 1 Mg Tablet) 1 mg PO DAILY [facility] Last Admin: 05/19/23 08:04 Dose: 1 mg Documented By: LEANN Furosemide (Furosemide 40 Mg Tablet) 40 mg PO DAILY [facility]; Protocol Last Admin: 05/19/23 08:04 Dose: 40 mg Documented By: LEANN Gabapentin (Gabapentin 100 Mg Capsule) 200 mg PO BID [facility] Last Admin: 05/05/23 09:49 Dose: 200 mg Documented By: LEANN Glucose (Glucose Gel 15 Gm Gel..Gram.) 15 gm PO Q15M PRN; Protocol PRN Reason: per Hypoglycemia Standing Ord. Insulin Human Lispro (Insulin Lispro 100 Unit/Ml 3 Ml Vial) 0 unit SUBCUT QIDACHS [facility]; Protocol Last Admin: 05/19/23 11:11 Dose: Not Given Documented By: LEANN Non-Admin Reason: No Insulin Coverage Lactulose (Lactulose 20 Gm/30 Ml Solution) 10 gm PO DAILY PRN PRN Reason: Constipation Melatonin (Melatonin 3 Mg Tablet) 6 mg PO BEDTIME PRN PRN Reason: Insomnia Last Admin: 05/05/23 20:54 Dose: 6 mg Documented By: KRYSTLE Metformin HCl (Metformin Hcl Er 500 Mg Tab.Er.24h) 500 mg PO DAILY@1800 [facility] Last Admin: 05/18/23 16:29 Dose: 500 mg Documented By: COTROLAN Omeprazole (Omeprazole 20 Mg Capsule.Dr) 20 mg PO DAILY@0630 [facility] Last Admin: 05/19/23 05:41 Dose: 20 mg Documented By: WOOD Ondansetron HCl (Ondansetron Hcl 4 Mg/2 Ml Vial) 4 mg IVPUSH Q8H PRN PRN Reason: Nausea and Vomiting Last Admin: 04/05/23 12:43 Dose: 4 mg Documented By: FERMIN Polyethylene Glycol (Polyethylene Glycol 3350 17 Gm Powd.Pack) 17 gm PO DAILY PRN PRN Reason: Constipation Quetiapine Fumarate (Quetiapine Fumarate 50 Mg Tablet) 50 mg PO Q8H PRN PRN Reason: anxiety/restlessness Quetiapine Fumarate (Quetiapine Fumarate 25 Mg Tablet) 25 mg PO TID [facility] Last Admin: 05/19/23 08:02 Dose: 25 mg Documented By: LEANN Senna (Sennosides 8.6 Mg Tablet) 17.2 mg PO BEDTIME [facility] Last Admin: 05/18/23 20:41 Dose: 17.2 mg Documented By: WOOD Sertraline HCl (Sertraline Hcl 100 Mg Tablet) 100 mg PO DAILY [facility] Last Admin: 05/19/23 08:04 Dose: 100 mg Documented By: LEANN Sodium Chloride (0.9 % Sodium Chloride Flush 3 Ml Syringe) 3 ml IVFLUSH QSHIFT [facility] Last Admin: 05/19/23 08:04 Dose: Not Given Documented By: LEANN Non-Admin Reason: No Access Trazodone HCl (Trazodone Hcl 50 Mg Tablet) 50 mg PO BEDTIME PRN PRN Reason: insomnia Last Admin: 05/13/23 20:46 Dose: 50 mg Documented By: BINH Labs 05/19/23 05:24 05/19/23 05:24 Labs: Laboratory Results - last 24 hr 05/18/23 05/18/23 05/19/23 16:03 20:43 05:24 MCV 101.1 H MCH 33.0 MCHC 32.6 RDW 14.6 Plt Count 142 L MPV 9.3 L Absolute Nucleated RBC 0.000 Nucleated RBC % (auto) 0.0 Anion Gap 11 L Estim Creat Clear Calc 86.7 Estimated GFR > 60 POC Glucose 121 H 119 H Fasting Glucose 97 Calcium 9.2 D 05/19/23 05/19/23 07:00 11:01 MCV MCH MCHC RDW Plt Count MPV Absolute Nucleated RBC Nucleated RBC % (auto) Anion Gap Estim Creat Clear Calc Estimated GFR POC Glucose 101 116 H Fasting Glucose Calcium Assessment and Plan (1) Toxic metabolic encephalopathy: Status: Acute (2) Back abscess: Status: Acute (3) Major neurocognitive disorder: Status: Acute Plan 72M PMH significant for?CAD, gxy-efniwef-chgeulxgj diabetes type 2, who initially presented to the ED on 03/15/2023 from SNF after reportedly having hallucinations and being combative with staff. Pt was placed in physician observation in the ED until he became hypoxic and tested positive for COVID admitted to the medical floor for treatment and further evaluation of acute hypoxic respiratory failure in the setting of COVID infection and new awaiting Placement Toxic metabolic encephalopathy more alert and interactive now Likely related to medications, hospital stay among others work up including head CTH, CBC, BMP, UA all have been negative. Concern for oversdation with meds, Lowered Seroquel to 25 mg tid with good response PRN Seroquel 50 tid if needed (did not have to use since 05/04) Psych input appreciated back lower Lumbar abcess s/p I and D, culture did not grow anything. Has completed course of Augmentin local wound care, no packing , foam dressing and change every other day Acute hypoxic respiratory failure in the setting COVID 19 infection, resolved Finished course of dexamethasone and remdesivir baseline home oxygen 2 L Left mid back discomfort lipoma, no acute intervention. HTN continue coreg, lasix morbid obesity weight loss advised Wae-wxretib-cgufmpudc type 2 diabetes acceptable control on current therapies continue metformin lispro correctional scale adjust as needed Dehydration Post IVF, Bun/Creating better he is eating and drinking on his own Full Code Lovenox requires continued hospital stay for safe disposition and medication management for Somnolence and altered mentation pending safe discharge plan . Quality Stroke Does the patient have a stroke diagnosis?: No VTE Prior VTE?: No VTE Risk Level:: Medical - moderate - high VTE Device Contraindication: Treatment Not Indicated VTE Drug Contraindication: N/A - Med Ordered
--- NOTE | 2023-05-19 12:47 | MHC.CM.PN ---
pt ready for dc no accepting facilities
[2023-05-19 15:25] VITALS: BP 160/73; PULSE 59; RESP 18; TEMP 36; O2SAT 97
[2023-05-19 16:05] LABS: Glucose, Whole Blood 119 mg/dL (60-115)
[2023-05-19] MEDS: metFORMIN HCl ER 500 MG TAB.ER.24H PO (17:27)
[2023-05-19 20:00] VITALS: BP 136/63; PULSE 69; RESP 20; TEMP 36.1; O2SAT 98
[2023-05-19 20:26] LABS: Glucose, Whole Blood 144 mg/dL (60-115)
[2023-05-19] MEDS: Enoxaparin Sodium 40 MG/0.4 ML SYRINGE SUBCUT (21:55)
[2023-05-19] MEDS: Atorvastatin Calcium 40 MG TABLET PO (21:56)
[2023-05-19] MEDS: Sennosides 8.6 MG TABLET 17.2 MG PO (21:56)
[2023-05-20 02:08] VITALS: BP 119/56; PULSE 63; RESP 20; TEMP 36.2; O2SAT 93
[2023-05-20] MEDS: Omeprazole 20 MG CAPSULE.DR PO (05:56)
[2023-05-20 06:56] VITALS: BP 127/59; PULSE 69; RESP 16; TEMP 36.6; O2SAT 94
[2023-05-20 07:09] LABS: Glucose, Whole Blood 91 mg/dL (60-115)
[2023-05-20] MEDS: Fluticasone/Umeclidinium/Vilanterol 200/62.5/25 BLST.W.DEV 1 PUFF INHALE (08:14)
[2023-05-20 08:18] VITALS: PULSE 70; RESP 16; O2SAT 91
[2023-05-20] MEDS: Acetaminophen 325 MG TABLET 975 MG PO (09:08)
[2023-05-20] MEDS: Sertraline HCL 100 MG TABLET PO (09:09)
[2023-05-20] MEDS: QUEtiapine Fumarate 25 MG TABLET PO ×2 (09:09→21:18)
[2023-05-20] MEDS: Folic Acid 1 MG TABLET PO (09:09)
[2023-05-20] MEDS: carvediloL 3.125 MG TABLET PO (09:09)
[2023-05-20] MEDS: Aspirin Enteric Coated 81 MG TABLET.DR PO (09:09)
[2023-05-20] MEDS: Clopidogrel Bisulfate 75 MG TABLET PO (09:09)
[2023-05-20] MEDS: Furosemide 40 MG TABLET PO (09:09)
--- NOTE | 2023-05-20 09:09 | MHC.CM.PN ---
Addendum entered by Anastasiia Anaya 05/21/23 08:32: JASPREET MET WITH PTS DAUGHTER YESTERDAY AFTERNOON SHE REPORTS SINCE THESE ARE THE ONLY SNFS FOLLOWING, THEY WANT TO TAKE PT HOME SHE UNDERSTANDS [facility] AND [facility] WILL NOT ASSESS FOR SERVICES UNTIL PT IS IN THE HOME AND FAMILY WOULD HAVE TO PROVIDE CARE SHE ALSO UNDERSTANDS CM WOULD HAVE TO INITIATE DELIVERY OF DME AND THIS MAY TAKE SOME TIME JASPREET CALLED HIRA AT [facility] [phone] AND INFORMED HER OF THE FAMILIES WISH TO TAKE PT HOME SHE INITIALLY STATED THEY DID NOT SUPPORT THIS HOWEVER UNDERSTANDS THE PT/FAMILY HAS THE RIGHT TO TRY AND WILL NOT KNOW IF IT IS SUCCESSFUL UNTIL THEY ARE ALLOWED TO TRY. HIRA SAYS THE PT DID HAVE [employer] HOURS PER WEEK HOWEVER IT , SHE SAYS THEY CAN TRY TO GET THEM REINSTATED AND THEN CAN DO A NEW ASSESSMENT ONCE HE IS HOME. SHE IS ALSO AWARE THE FAMILY WILL ARRANGE FOR [facility] TO DO A [facility] CARE ASSESSMENT HIRA SAYS SCRIPTS WILL BE NEEDED FOR PTS DME INCLUDING A BARIATRIC BED, ISAIAS AND W/C THESE SHOULD BE SENT TO &R [facility] S[facility] WILL BE SENT TODAY, ONCE IN, [facility] WILL WORK ON AUTH Original Note: PT AWAITING LTC PLACEMENT 297 REFERRALS WERE MADE, THERE HAVE BEEN NO BED OFFERS [facility] IS THE ONLY FACILITY FOLLOWING CLINICAL UPDATES FAXED TO THEM AT [phone] CM WILL CALL ADMISSIONS [facility]IAISON[facility], LATER TODAY
--- NOTE | 2023-05-20 09:32 | HO.PM.IMPN ---
Subjective Subjective Date of Service: 05/20/23 Interval History: Seen and evaluated this morning alert and interactive laying comfortable in his bed denies any complaints Review of Systems Review of Systems: Yes all other systems are reviewed and are negative Physical Exam Vital Signs: Vital Signs: Last Vital Signs Temp 98 F 05/20/23 06:56 Pulse 70 05/20/23 08:18 Resp 16 05/20/23 08:18 BP 127/59 L 05/20/23 06:56 Pulse Ox 94 05/20/23 06:56 O2 Del Method Nasal Cannula 05/20/23 06:56 O2 Flow Rate 2 05/20/23 02:08 Oxygen Flow Rate 3 03/15/23 18:32 BMI result Body Mass Index 44.3 Const: Other: Constitutional : interactive, not in distress, legally blind, morbidly obese Cardiovascular : no JVP, no lower extremity edema Respiratory : bilateral chest movement, not in resp distress Gastrointestinal: soft, lax, Non tender Skin : Warm, Dry Neurological : Alert & oriented , No focal deficit Objective Data Active Medications Acetaminophen (Acetaminophen 325 Mg Tablet) 975 mg PO TID [facility] Last Admin: 05/20/23 09:08 Dose: 975 mg Documented By: VLAD Al Hydroxide/Mg Hydroxide (Magnesium Hydrox/Alum Hydrox 30 Ml Oral.Susp) 30 ml PO Q6H PRN PRN Reason: dyspepsia Albuterol Sulfate (Albuterol Sulfate 90 Mcg 8 Gm Inhaler) 2 puff INHALE Q4H PRN PRN Reason: Wheezing Aspirin (Aspirin Enteric Coated 81 Mg Tablet.) 81 mg PO DAILY [facility] Last Admin: 05/20/23 09:09 Dose: 81 mg Documented By: VLAD Atorvastatin Calcium (Atorvastatin Calcium 40 Mg Tablet) 40 mg PO BEDTIME [facility] Last Admin: 05/19/23 21:56 Dose: 40 mg Documented By: KEARA Carvedilol (Carvedilol 3.125 Mg Tablet) 3.125 mg PO BID [facility]; Protocol Last Admin: 05/20/23 09:09 Dose: 3.125 mg Documented By: VLAD Clopidogrel Bisulfate (Clopidogrel Bisulfate 75 Mg Tablet) 75 mg PO DAILY [facility] Last Admin: 05/20/23 09:09 Dose: 75 mg Documented By: VLAD Cyanocobalamin (Cyanocobalamin (Vitamin B-12) 1,000 Mcg/Ml Vial) 1,000 mcg IM Q30D [facility] Last Admin: 05/08/23 09:05 Dose: Not Given Documented By: ALEXA Non-Admin Reason: Patient Refused Dextrose (Dextrose 50 % 25 Gm/50 Ml Syringe) 25 gm IVPUSH Q15M PRN; Protocol PRN Reason: per Hypoglycemia Standing Ord. Docusate Sodium (Docusate Sodium 100 Mg Capsule) 100 mg PO BID PRN PRN Reason: Constipation Enoxaparin Sodium (Enoxaparin Sodium 40 Mg/0.4 Ml Syringe) 40 mg SUBCUT Q24H [facility] Last Admin: 05/19/23 21:55 Dose: 40 mg Documented By: KEARA Fluticasone/Umeclidinium/Vilanterol (Fluticasone/Umeclidinium/Vilanterol 200/62.5/25 Blst.W.Dev) 1 puff INHALE RDAILY [facility] Last Admin: 05/20/23 08:14 Dose: 1 puff Documented By: JASON Folic Acid (Folic Acid 1 Mg Tablet) 1 mg PO DAILY [facility] Last Admin: 05/20/23 09:09 Dose: 1 mg Documented By: VLAD Furosemide (Furosemide 40 Mg Tablet) 40 mg PO DAILY [facility]; Protocol Last Admin: 05/20/23 09:09 Dose: 40 mg Documented By: VLAD Gabapentin (Gabapentin 100 Mg Capsule) 200 mg PO BID [facility] Last Admin: 05/05/23 09:49 Dose: 200 mg Documented By: LEANN Glucose (Glucose Gel 15 Gm Gel..Gram.) 15 gm PO Q15M PRN; Protocol PRN Reason: per Hypoglycemia Standing Ord. Insulin Human Lispro (Insulin Lispro 100 Unit/Ml 3 Ml Vial) 0 unit SUBCUT QIDACHS [facility]; Protocol Last Admin: 05/20/23 07:34 Dose: Not Given Documented By: VLAD Non-Admin Reason: No Insulin Coverage Lactulose (Lactulose 20 Gm/30 Ml Solution) 10 gm PO DAILY PRN PRN Reason: Constipation Melatonin (Melatonin 3 Mg Tablet) 6 mg PO BEDTIME PRN PRN Reason: Insomnia Last Admin: 05/05/23 20:54 Dose: 6 mg Documented By: KRYSTLE Metformin HCl (Metformin Hcl Er 500 Mg Tab.Er.24h) 500 mg PO DAILY@1800 [facility] Last Admin: 05/19/23 17:27 Dose: 500 mg Documented By: LEANN Omeprazole (Omeprazole 20 Mg Capsule.Dr) 20 mg PO DAILY@0630 [facility] Last Admin: 05/20/23 05:56 Dose: 20 mg Documented By: KEARA Ondansetron HCl (Ondansetron Hcl 4 Mg/2 Ml Vial) 4 mg IVPUSH Q8H PRN PRN Reason: Nausea and Vomiting Last Admin: 04/05/23 12:43 Dose: 4 mg Documented By: FERMIN Polyethylene Glycol (Polyethylene Glycol 3350 17 Gm Powd.Pack) 17 gm PO DAILY PRN PRN Reason: Constipation Quetiapine Fumarate (Quetiapine Fumarate 50 Mg Tablet) 50 mg PO Q8H PRN PRN Reason: anxiety/restlessness Quetiapine Fumarate (Quetiapine Fumarate 25 Mg Tablet) 25 mg PO TID [facility] Last Admin: 05/20/23 09:09 Dose: 25 mg Documented By: VLAD Senna (Sennosides 8.6 Mg Tablet) 17.2 mg PO BEDTIME [facility] Last Admin: 05/19/23 21:56 Dose: 17.2 mg Documented By: KEARA Sertraline HCl (Sertraline Hcl 100 Mg Tablet) 100 mg PO DAILY [facility] Last Admin: 05/20/23 09:09 Dose: 100 mg Documented By: VLAD Sodium Chloride (0.9 % Sodium Chloride Flush 3 Ml Syringe) 3 ml IVFLUSH QSHIFT [facility] Last Admin: 05/20/23 09:05 Dose: Not Given Documented By: VLAD Non-Admin Reason: No Access Trazodone HCl (Trazodone Hcl 50 Mg Tablet) 50 mg PO BEDTIME PRN PRN Reason: insomnia Last Admin: 05/13/23 20:46 Dose: 50 mg Documented By: BINH Labs 05/19/23 05:24 05/19/23 05:24 Labs: Laboratory Results - last 24 hr 05/19/23 05/19/23 05/19/23 11:01 15:29 20:07 POC Glucose 116 H 119 H 144 H 05/20/23 06:55 POC Glucose 91 Assessment and Plan (1) Toxic metabolic encephalopathy: Status: Acute (2) Major neurocognitive disorder: Status: Acute Plan 72M PMH significant for?CAD, [id number]-terrlkjia diabetes type 2, who initially presented to the ED on 03/15/2023 from SNF after reportedly having hallucinations and being combative with staff. Pt was placed in physician observation in the ED until he became hypoxic and tested positive for COVID admitted to the medical floor for treatment and further evaluation of acute hypoxic respiratory failure in the setting of COVID infection and new awaiting Placement Toxic metabolic encephalopathy more alert and interactive Likely related to medications, hospital stay among others work up including head CTH, CBC, BMP, UA all have been negative. Concern for oversdation with meds, Lowered Seroquel to 25 mg tid with good response PRN Seroquel 50 tid if needed (did not have to use since 05/04) Psych input appreciated back lower Lumbar abcess s/p I and D, culture did not grow anything. Has completed course of Augmentin local wound care, no packing , foam dressing and change every other day Acute hypoxic respiratory failure in the setting COVID 19 infection, resolved Finished course of dexamethasone and remdesivir baseline home oxygen 2 L Left mid back discomfort lipoma, no acute intervention. HTN continue coreg, lasix morbid obesity weight loss advised Hdx-cibvwnj-awuecvlbs type 2 diabetes acceptable control on current therapies continue metformin lispro correctional scale adjust as needed Dehydration Post IVF, Bun/Creating better he is eating and drinking on his own Full Code Lovenox requires continued hospital stay for safe disposition and medication management for Somnolence and altered mentation pending safe discharge plan . Quality Stroke Does the patient have a stroke diagnosis?: No VTE Prior VTE?: No VTE Risk Level:: Medical - moderate - high VTE Device Contraindication: Treatment Not Indicated VTE Drug Contraindication: N/A - Med Ordered
[2023-05-20 11:42] LABS: Glucose, Whole Blood 128 mg/dL (60-115)
[2023-05-20 15:02] VITALS: BP 131/60; PULSE 60; RESP 16; TEMP 36.1; O2SAT 94
[2023-05-20 16:27] LABS: Glucose, Whole Blood 122 mg/dL (60-115)
[2023-05-20] MEDS: metFORMIN HCl ER 500 MG TAB.ER.24H PO (18:07)
[2023-05-20 20:00] VITALS: BP 104/58; PULSE 65; RESP 20; TEMP 36.1; O2SAT 95
[2023-05-20 20:22] LABS: Glucose, Whole Blood 113 mg/dL (60-115)
[2023-05-20] MEDS: Sennosides 8.6 MG TABLET 17.2 MG PO (21:18)
[2023-05-20] MEDS: Atorvastatin Calcium 40 MG TABLET PO (21:18)
[2023-05-20] MEDS: Enoxaparin Sodium 40 MG/0.4 ML SYRINGE SUBCUT (21:19)
[2023-05-21 03:49] VITALS: BP 117/56; PULSE 67; RESP 17; TEMP 36.1; O2SAT 94
[2023-05-21] MEDS: Omeprazole 20 MG CAPSULE.DR PO (05:39)
[2023-05-21 05:53] LABS: Creatinine Clr Calc Pharmacy 110.8; Estimated Glomerular Filt Rate > 60
[2023-05-21 06:49] VITALS: BP 136/66; PULSE 62; RESP 17; TEMP 36.6; O2SAT 94
[2023-05-21 07:14] LABS: Glucose, Whole Blood 107 mg/dL (60-115)
[2023-05-21] MEDS: carvediloL 3.125 MG TABLET PO ×2 (07:30→20:55)
[2023-05-21] MEDS: Furosemide 40 MG TABLET PO (07:30)
[2023-05-21] MEDS: Sertraline HCL 100 MG TABLET PO (07:31)
[2023-05-21] MEDS: Folic Acid 1 MG TABLET PO (07:31)
[2023-05-21] MEDS: Clopidogrel Bisulfate 75 MG TABLET PO (07:31)
[2023-05-21] MEDS: Aspirin Enteric Coated 81 MG TABLET.DR PO (07:31)
[2023-05-21] MEDS: QUEtiapine Fumarate 25 MG TABLET PO ×3 (07:31→20:55)
[2023-05-21] MEDS: Acetaminophen 325 MG TABLET 975 MG PO ×3 (07:33→20:56)
[2023-05-21] MEDS: Fluticasone/Umeclidinium/Vilanterol 200/62.5/25 BLST.W.DEV 1 PUFF INHALE (07:56)
[2023-05-21 07:57] VITALS: PULSE 62; RESP 17; O2SAT 92
--- NOTE | 2023-05-21 09:26 | MHC.CLN ---
NUTRITION INTAKE USUALLY GOOD. PO INTAKE DOES NOT SUPPORT SIGNIFICANT WEIGHT LOSS. NO ADDITIONAL NUTRITION INTERVENTIONS AT THIS TIME.
--- NOTE | 2023-05-21 10:19 | HO.PM.IMPN ---
Subjective Subjective Date of Service: 05/21/23 Interval History: Seen and evaluated this morning alert and interactive laying comfortable in his bed denies any complaints Review of Systems Review of Systems: Yes all other systems are reviewed and are negative Physical Exam Vital Signs: Vital Signs: Last Vital Signs Temp 98 F 05/21/23 06:49 Pulse 62 05/21/23 07:57 Resp 17 05/21/23 07:57 BP 136/66 05/21/23 06:49 Pulse Ox 94 05/21/23 06:49 O2 Del Method Nasal Cannula 05/21/23 06:49 O2 Flow Rate 2 05/21/23 06:49 Oxygen Flow Rate 3 03/15/23 18:32 BMI result Body Mass Index 44.3 Const: Other: Constitutional : interactive, not in distress, legally blind, morbidly obese Cardiovascular : no JVP, no lower extremity edema Respiratory : bilateral chest movement, not in resp distress Gastrointestinal: soft, lax, Non tender Skin : Warm, Dry Neurological : Alert & oriented , No focal deficit Objective Data Active Medications Acetaminophen (Acetaminophen 325 Mg Tablet) 975 mg PO TID [facility] Last Admin: 05/21/23 07:33 Dose: 975 mg Documented By: PATIENCE Al Hydroxide/Mg Hydroxide (Magnesium Hydrox/Alum Hydrox 30 Ml Oral.Susp) 30 ml PO Q6H PRN PRN Reason: dyspepsia Albuterol Sulfate (Albuterol Sulfate 90 Mcg 8 Gm Inhaler) 2 puff INHALE Q4H PRN PRN Reason: Wheezing Aspirin (Aspirin Enteric Coated 81 Mg Tablet.) 81 mg PO DAILY [facility] Last Admin: 05/21/23 07:31 Dose: 81 mg Documented By: PATIENCE Atorvastatin Calcium (Atorvastatin Calcium 40 Mg Tablet) 40 mg PO BEDTIME [facility] Last Admin: 05/20/23 21:18 Dose: 40 mg Documented By: KEARA Carvedilol (Carvedilol 3.125 Mg Tablet) 3.125 mg PO BID [facility]; Protocol Last Admin: 05/21/23 07:30 Dose: 3.125 mg Documented By: PATIENCE Clopidogrel Bisulfate (Clopidogrel Bisulfate 75 Mg Tablet) 75 mg PO DAILY [facility] Last Admin: 05/21/23 07:31 Dose: 75 mg Documented By: PATIENCE Cyanocobalamin (Cyanocobalamin (Vitamin B-12) 1,000 Mcg/Ml Vial) 1,000 mcg IM Q30D [facility] Last Admin: 05/08/23 09:05 Dose: Not Given Documented By: ALEXA Non-Admin Reason: Patient Refused Dextrose (Dextrose 50 % 25 Gm/50 Ml Syringe) 25 gm IVPUSH Q15M PRN; Protocol PRN Reason: per Hypoglycemia Standing Ord. Docusate Sodium (Docusate Sodium 100 Mg Capsule) 100 mg PO BID PRN PRN Reason: Constipation Enoxaparin Sodium (Enoxaparin Sodium 40 Mg/0.4 Ml Syringe) 40 mg SUBCUT Q24H [facility] Last Admin: 05/20/23 21:19 Dose: 40 mg Documented By: KEARA Fluticasone/Umeclidinium/Vilanterol (Fluticasone/Umeclidinium/Vilanterol 200/62.5/25 Blst.W.Dev) 1 puff INHALE RDAILY [facility] Last Admin: 05/21/23 07:56 Dose: 1 puff Documented By: JASSI Folic Acid (Folic Acid 1 Mg Tablet) 1 mg PO DAILY [facility] Last Admin: 05/21/23 07:31 Dose: 1 mg Documented By: PATIENCE Furosemide (Furosemide 40 Mg Tablet) 40 mg PO DAILY [facility]; Protocol Last Admin: 05/21/23 07:30 Dose: 40 mg Documented By: PATIENCE Gabapentin (Gabapentin 100 Mg Capsule) 200 mg PO BID [facility] Last Admin: 05/05/23 09:49 Dose: 200 mg Documented By: LEANN Glucose (Glucose Gel 15 Gm Gel..Gram.) 15 gm PO Q15M PRN; Protocol PRN Reason: per Hypoglycemia Standing Ord. Insulin Human Lispro (Insulin Lispro 100 Unit/Ml 3 Ml Vial) 0 unit SUBCUT QIDACHS [facility]; Protocol Last Admin: 05/21/23 07:22 Dose: Not Given Documented By: PATIENCE Non-Admin Reason: No Insulin Coverage Lactulose (Lactulose 20 Gm/30 Ml Solution) 10 gm PO DAILY PRN PRN Reason: Constipation Melatonin (Melatonin 3 Mg Tablet) 6 mg PO BEDTIME PRN PRN Reason: Insomnia Last Admin: 05/05/23 20:54 Dose: 6 mg Documented By: KRYSTLE Metformin HCl (Metformin Hcl Er 500 Mg Tab.Er.24h) 500 mg PO DAILY@1800 [facility] Last Admin: 05/20/23 18:07 Dose: 500 mg Documented By: VLAD Omeprazole (Omeprazole 20 Mg Capsule.Dr) 20 mg PO DAILY@0630 [facility] Last Admin: 05/21/23 05:39 Dose: 20 mg Documented By: KEARA Ondansetron HCl (Ondansetron Hcl 4 Mg/2 Ml Vial) 4 mg IVPUSH Q8H PRN PRN Reason: Nausea and Vomiting Last Admin: 04/05/23 12:43 Dose: 4 mg Documented By: FERMIN Polyethylene Glycol (Polyethylene Glycol 3350 17 Gm Powd.Pack) 17 gm PO DAILY PRN PRN Reason: Constipation Quetiapine Fumarate (Quetiapine Fumarate 50 Mg Tablet) 50 mg PO Q8H PRN PRN Reason: anxiety/restlessness Quetiapine Fumarate (Quetiapine Fumarate 25 Mg Tablet) 25 mg PO TID [facility] Last Admin: 05/21/23 07:31 Dose: 25 mg Documented By: PATIENCE Senna (Sennosides 8.6 Mg Tablet) 17.2 mg PO BEDTIME [facility] Last Admin: 05/20/23 21:18 Dose: 17.2 mg Documented By: KEARA Sertraline HCl (Sertraline Hcl 100 Mg Tablet) 100 mg PO DAILY [facility] Last Admin: 05/21/23 07:31 Dose: 100 mg Documented By: PATIENCE Sodium Chloride (0.9 % Sodium Chloride Flush 3 Ml Syringe) 3 ml IVFLUSH QSHIFT [facility] Last Admin: 05/21/23 07:31 Dose: Not Given Documented By: PATIENCE Non-Admin Reason: No Access Trazodone HCl (Trazodone Hcl 50 Mg Tablet) 50 mg PO BEDTIME PRN PRN Reason: insomnia Last Admin: 05/13/23 20:46 Dose: 50 mg Documented By: BINH Labs 05/19/23 05:24 05/21/23 05:25 Labs: Laboratory Results - last 24 hr 05/20/23 05/20/23 05/20/23 11:13 16:20 20:17 Hold Purple Top Estim Creat Clear Calc Estimated GFR POC Glucose 128 H 122 H 113 05/21/23 05/21/23 05:25 06:49 Hold Purple Top SEE NOTE Estim Creat Clear Calc 110.8 Estimated GFR > 60 POC Glucose 107 Assessment and Plan (1) Major neurocognitive disorder: Status: Acute Plan 72M PMH significant for?CAD, log-schbofx-vmhmufple diabetes type 2, who initially presented to the ED on 03/15/2023 from SNF after reportedly having hallucinations and being combative with staff. Pt was placed in physician observation in the ED until he became hypoxic and tested positive for COVID admitted to the medical floor for treatment and further evaluation of acute hypoxic respiratory failure in the setting of COVID infection and new awaiting Placement Toxic metabolic encephalopathy more alert and interactive Likely related to medications, hospital stay among others work up including head CTH, CBC, BMP, UA all have been negative. Concern for oversdation with meds, Lowered Seroquel to 25 mg tid with good response PRN Seroquel if needed (did not have to use since 05/04) Psych input appreciated diet advanced to regular back lower Lumbar abcess s/p I and D, culture did not grow anything. Has completed course of Augmentin local wound care, no packing , foam dressing and change every other day Acute hypoxic respiratory failure in the setting COVID 19 infection, resolved Finished course of dexamethasone and remdesivir baseline home oxygen 2 L Left mid back discomfort lipoma, no acute intervention. HTN continue coreg, lasix morbid obesity weight loss advised Kka-fsmknpb-fvdoadxku type 2 diabetes acceptable control on current therapies continue metformin lispro correctional scale adjust as needed Full Code Lovenox requires continued hospital stay for safe disposition and medication management for Somnolence and altered mentation pending safe discharge plan . Quality Stroke Does the patient have a stroke diagnosis?: No VTE Prior VTE?: No VTE Risk Level:: Medical - moderate - high VTE Device Contraindication: Treatment Not Indicated VTE Drug Contraindication: N/A - Med Ordered
[2023-05-21 11:28] LABS: Glucose, Whole Blood 130 mg/dL (60-115)
--- NOTE | 2023-05-21 13:37 | MHC.CM.PN ---
SCRIPT FOR DME SENT VIA FAX TO [facility]
[2023-05-21 16:00] VITALS: BP 116/65; PULSE 64; RESP 16; TEMP 36.4; O2SAT 93
[2023-05-21 16:35] LABS: Glucose, Whole Blood 115 mg/dL (60-115)
[2023-05-21] MEDS: metFORMIN HCl ER 500 MG TAB.ER.24H PO (16:54)
[2023-05-21 19:34] VITALS: BP 148/63; PULSE 66; RESP 18; TEMP 36.1; O2SAT 98
[2023-05-21 20:03] LABS: Glucose, Whole Blood 152 mg/dL (60-115)
[2023-05-21] MEDS: Atorvastatin Calcium 40 MG TABLET PO (20:55)
[2023-05-21] MEDS: Sennosides 8.6 MG TABLET 17.2 MG PO (20:55)
[2023-05-21] MEDS: Insulin Lispro 100 UNIT/ML 3 ML VIAL SUBCUT (20:55)
[2023-05-21] MEDS: Enoxaparin Sodium 40 MG/0.4 ML SYRINGE SUBCUT (20:55)
[2023-05-22 03:09] VITALS: BP 144/65; PULSE 59; RESP 16; TEMP 36; O2SAT 95
[2023-05-22] MEDS: Omeprazole 20 MG CAPSULE.DR PO (05:52)
[2023-05-22 07:37] LABS: Glucose, Whole Blood 84 mg/dL (60-115)
[2023-05-22] MEDS: carvediloL 3.125 MG TABLET PO ×2 (07:38→20:48)
[2023-05-22] MEDS: Acetaminophen 325 MG TABLET 975 MG PO ×2 (07:38→15:13)
[2023-05-22] MEDS: Clopidogrel Bisulfate 75 MG TABLET PO (07:39)
[2023-05-22] MEDS: QUEtiapine Fumarate 25 MG TABLET PO ×3 (07:39→20:48)
[2023-05-22] MEDS: Aspirin Enteric Coated 81 MG TABLET.DR PO (07:39)
[2023-05-22] MEDS: Furosemide 40 MG TABLET PO (07:39)
[2023-05-22] MEDS: Sertraline HCL 100 MG TABLET PO (07:39)
[2023-05-22] MEDS: Folic Acid 1 MG TABLET PO (07:39)
[2023-05-22 07:40] VITALS: BP 132/58; PULSE 60; RESP 12; TEMP 37; O2SAT 96
[2023-05-22] MEDS: Fluticasone/Umeclidinium/Vilanterol 200/62.5/25 BLST.W.DEV 1 PUFF INHALE (07:54)
[2023-05-22 07:58] VITALS: PULSE 60; RESP 16; O2SAT 95
--- NOTE | 2023-05-22 09:34 | HO.PM.IMPN ---
Subjective Subjective Date of Service: 05/22/23 Interval History: Seen and evaluated this morning alert and interactive laying comfortable in his bed denies any complaints Review of Systems Review of Systems: Yes all other systems are reviewed and are negative Physical Exam Vital Signs: Vital Signs: Last Vital Signs Temp 98.6 F 05/22/23 07:40 Pulse 60 05/22/23 07:58 Resp 16 05/22/23 07:58 BP 132/58 L 05/22/23 07:40 Pulse Ox 96 05/22/23 07:40 O2 Del Method Room Air 05/22/23 07:40 O2 Flow Rate 2 05/22/23 03:09 Oxygen Flow Rate 3 03/15/23 18:32 BMI result Body Mass Index 44.3 Const: Other: Constitutional : interactive, not in distress, legally blind, morbidly obese Cardiovascular : no JVP, no lower extremity edema Respiratory : bilateral chest movement, not in resp distress Gastrointestinal: soft, lax, Non tender Skin : Warm, Dry Neurological : Alert & oriented , No focal deficit Objective Data Active Medications Acetaminophen (Acetaminophen 325 Mg Tablet) 975 mg PO TID [facility] Last Admin: 05/22/23 07:38 Dose: 975 mg Documented By: BRENDEN Al Hydroxide/Mg Hydroxide (Magnesium Hydrox/Alum Hydrox 30 Ml Oral.Susp) 30 ml PO Q6H PRN PRN Reason: dyspepsia Albuterol Sulfate (Albuterol Sulfate 90 Mcg 8 Gm Inhaler) 2 puff INHALE Q4H PRN PRN Reason: Wheezing Aspirin (Aspirin Enteric Coated 81 Mg Tablet.) 81 mg PO DAILY [facility] Last Admin: 05/22/23 07:39 Dose: 81 mg Documented By: BRENDEN Atorvastatin Calcium (Atorvastatin Calcium 40 Mg Tablet) 40 mg PO BEDTIME [facility] Last Admin: 05/21/23 20:55 Dose: 40 mg Documented By: BINH Carvedilol (Carvedilol 3.125 Mg Tablet) 3.125 mg PO BID [facility]; Protocol Last Admin: 05/22/23 07:38 Dose: 3.125 mg Documented By: BRENDEN Clopidogrel Bisulfate (Clopidogrel Bisulfate 75 Mg Tablet) 75 mg PO DAILY [facility] Last Admin: 05/22/23 07:39 Dose: 75 mg Documented By: BRENDEN Cyanocobalamin (Cyanocobalamin (Vitamin B-12) 1,000 Mcg/Ml Vial) 1,000 mcg IM Q30D [facility] Last Admin: 05/08/23 09:05 Dose: Not Given Documented By: ALEXA Non-Admin Reason: Patient Refused Docusate Sodium (Docusate Sodium 100 Mg Capsule) 100 mg PO BID PRN PRN Reason: Constipation Enoxaparin Sodium (Enoxaparin Sodium 40 Mg/0.4 Ml Syringe) 40 mg SUBCUT Q24H [facility] Last Admin: 05/21/23 20:55 Dose: 40 mg Documented By: BINH Fluticasone/Umeclidinium/Vilanterol (Fluticasone/Umeclidinium/Vilanterol 200/62.5/25 Blst.W.Dev) 1 puff INHALE RDAILY [facility] Last Admin: 05/22/23 07:54 Dose: 1 puff Documented By: MAURICE Folic Acid (Folic Acid 1 Mg Tablet) 1 mg PO DAILY [facility] Last Admin: 05/22/23 07:39 Dose: 1 mg Documented By: BRENDEN Furosemide (Furosemide 40 Mg Tablet) 40 mg PO DAILY [facility]; Protocol Last Admin: 05/22/23 07:39 Dose: 40 mg Documented By: BRENDEN Gabapentin (Gabapentin 100 Mg Capsule) 200 mg PO BID [facility] Last Admin: 05/05/23 09:49 Dose: 200 mg Documented By: LEANN Glucose (Glucose Gel 15 Gm Gel..Gram.) 15 gm PO Q15M PRN; Protocol PRN Reason: per Hypoglycemia Standing Ord. Dextrose (D10) 250 mls @ 750 mls/hr IV Q15M PRN PRN Reason: per Hypoglycemia Standing Ord. Insulin Human Lispro (Insulin Lispro 100 Unit/Ml 3 Ml Vial) 0 unit SUBCUT QIDACHS [facility]; Protocol Last Admin: 05/22/23 07:39 Dose: Not Given Documented By: BRENDEN Non-Admin Reason: No Insulin Coverage Lactulose (Lactulose 20 Gm/30 Ml Solution) 10 gm PO DAILY PRN PRN Reason: Constipation Melatonin (Melatonin 3 Mg Tablet) 6 mg PO BEDTIME PRN PRN Reason: Insomnia Last Admin: 05/05/23 20:54 Dose: 6 mg Documented By: KRYSTLE Metformin HCl (Metformin Hcl Er 500 Mg Tab.Er.24h) 500 mg PO DAILY@1800 [facility] Last Admin: 05/21/23 16:54 Dose: 500 mg Documented By: PATIENCE Omeprazole (Omeprazole 20 Mg Capsule.Dr) 20 mg PO DAILY@0630 [facility] Last Admin: 05/22/23 05:52 Dose: 20 mg Documented By: BINH Ondansetron HCl (Ondansetron Hcl 4 Mg/2 Ml Vial) 4 mg IVPUSH Q8H PRN PRN Reason: Nausea and Vomiting Last Admin: 04/05/23 12:43 Dose: 4 mg Documented By: FERMIN Polyethylene Glycol (Polyethylene Glycol 3350 17 Gm Powd.Pack) 17 gm PO DAILY PRN PRN Reason: Constipation Quetiapine Fumarate (Quetiapine Fumarate 50 Mg Tablet) 50 mg PO Q8H PRN PRN Reason: anxiety/restlessness Quetiapine Fumarate (Quetiapine Fumarate 25 Mg Tablet) 25 mg PO TID [facility] Last Admin: 05/22/23 07:39 Dose: 25 mg Documented By: BRENDEN Senna (Sennosides 8.6 Mg Tablet) 17.2 mg PO BEDTIME [facility] Last Admin: 05/21/23 20:55 Dose: 17.2 mg Documented By: BINH Sertraline HCl (Sertraline Hcl 100 Mg Tablet) 100 mg PO DAILY [facility] Last Admin: 05/22/23 07:39 Dose: 100 mg Documented By: BRENDEN Sodium Chloride (0.9 % Sodium Chloride Flush 3 Ml Syringe) 3 ml IVFLUSH QSHIFT [facility] Last Admin: 05/22/23 07:40 Dose: Not Given Documented By: BRENDEN Non-Admin Reason: no access Trazodone HCl (Trazodone Hcl 50 Mg Tablet) 50 mg PO BEDTIME PRN PRN Reason: insomnia Last Admin: 05/13/23 20:46 Dose: 50 mg Documented By: BINH Labs 05/19/23 05:24 05/21/23 05:25 Labs: Laboratory Results - last 24 hr 05/21/23 05/21/23 05/21/23 11:03 16:17 19:37 POC Glucose 130 H 115 152 H 05/22/23 07:07 POC Glucose 84 Assessment and Plan (1) Major neurocognitive disorder: Status: Acute (2) Physical deconditioning: Status: Acute (3) Morbid obesity with BMI of 40.0-44.9, adult: Status: Acute Plan 72M PMH significant for?CAD, [id number] diabetes type 2, who initially presented to the ED on 03/15/2023 from SNF after reportedly having hallucinations and being combative with staff. Pt was placed in physician observation in the ED until he became hypoxic and tested positive for COVID admitted to the medical floor for treatment and further evaluation of acute hypoxic respiratory failure in the setting of COVID infection and new awaiting Placement Toxic metabolic encephalopathy more alert and interactive Likely related to medications, hospital stay among others work up including head CTH, CBC, BMP, UA all have been negative. Concern for oversdation with meds, Lowered Seroquel to 25 mg tid with good response PRN Seroquel if needed (did not have to use since 05/04) Psych input appreciated diet advanced to regular back lower Lumbar abcess s/p I and D, culture did not grow anything. Has completed course of Augmentin local wound care, no packing , foam dressing and change every other day Acute hypoxic respiratory failure in the setting COVID 19 infection, resolved Finished course of dexamethasone and remdesivir baseline home oxygen 2 L Left mid back discomfort lipoma, no acute intervention. HTN continue coreg, lasix morbid obesity weight loss advised Dsp-ixtvfyf-kyhlhyvuk type 2 diabetes acceptable control on current therapies continue metformin lispro correctional scale adjust as needed Full Code Lovenox requires continued hospital stay for safe disposition and medication management for Somnolence and altered mentation pending safe discharge plan . Quality Stroke Does the patient have a stroke diagnosis?: No VTE Prior VTE?: No VTE Risk Level:: Medical - moderate - high VTE Device Contraindication: Treatment Not Indicated VTE Drug Contraindication: N/A - Med Ordered
[2023-05-22] MEDS: Loratadine 10 MG TABLET PO (10:47)
--- NOTE | 2023-05-22 11:09 | MHC.CM.PN ---
PER DISCUSSION WITH AND HOSPITALIST, NO PLAN FOR DC TODAY. NO SNF REFERRALS WILL BE PLACED. PATIENT HAS AMPLE ASSISTANCE IN THE HOME AND WANTS PATIENT HOME WITH RESUMPTION OF HIS [employer] AND P[facility] SERVICES. SON WILL BE HOME AND ABLE TO ASSIST WITH PATIENT CARE THIS COMING WEDNESDAY, May. PATIENT WILL REQUIRE BLS HOME. , LEANDER, CAN BE REACHED AT [phone], AND NOT THE NUMBER LISTED IN EXPANSE.
--- NOTE | 2023-05-22 11:30 | MHC.CM.PN ---
DAUGHTER, CLARKE, IS IN ROOM AND DISCUSSING DC PLAN WITH T/W. SHE IS NOW AWARE THAT RX WERE SENT TO [facility], AND THAT [facility] WILL HAVE TO REVIEW AND AUTHORIZE ONCE RECEIVED. CLARKE IS ALSO HOPING FOR ADDITIONAL SERVICES IN THE HOME TO ASSIST WITH DAILY CARE. [facility] IS NOT OPEN ON WEEKEND FOR AUTHORIZATION, AND T/W IS NOT AWARE OF [facility] CONTACT NUMBER
[2023-05-22 11:34] LABS: Glucose, Whole Blood 145 mg/dL (60-115)
[2023-05-22 14:51] VITALS: BP 134/63; PULSE 65; RESP 18; TEMP 37.1; O2SAT 94
[2023-05-22 16:33] LABS: Glucose, Whole Blood 124 mg/dL (60-115)
--- NOTE | 2023-05-22 16:55 | PC.NURSE ---
Pt reports itching on bilateral arms, Claritin given at 10:47 with mild effectiveness. Hydrocolloid bandages applied to scabs.
[2023-05-22] MEDS: metFORMIN HCl ER 500 MG TAB.ER.24H PO (17:04)
[2023-05-22 20:00] VITALS: BP 140/65; PULSE 59; RESP 18; TEMP 36; O2SAT 95
[2023-05-22 20:19] LABS: Glucose, Whole Blood 106 mg/dL (60-115)
[2023-05-22] MEDS: Enoxaparin Sodium 40 MG/0.4 ML SYRINGE SUBCUT (20:48)
[2023-05-22] MEDS: Atorvastatin Calcium 40 MG TABLET PO (20:48)
[2023-05-23] MEDS: Omeprazole 20 MG CAPSULE.DR PO (05:34)
[2023-05-23 07:18] VITALS: BP 134/63; PULSE 64; RESP 16; TEMP 36.1; O2SAT 94
[2023-05-23 07:42] LABS: Glucose, Whole Blood 96 mg/dL (60-115)
[2023-05-23] MEDS: Acetaminophen 325 MG TABLET 975 MG PO ×2 (08:09→15:18)
[2023-05-23] MEDS: Sertraline HCL 100 MG TABLET PO (08:10)
[2023-05-23] MEDS: Folic Acid 1 MG TABLET PO (08:10)
[2023-05-23] MEDS: Furosemide 40 MG TABLET PO (08:10)
[2023-05-23] MEDS: carvediloL 3.125 MG TABLET PO ×2 (08:10→20:10)
[2023-05-23] MEDS: QUEtiapine Fumarate 25 MG TABLET PO ×3 (08:10→20:09)
[2023-05-23] MEDS: Aspirin Enteric Coated 81 MG TABLET.DR PO (08:10)
[2023-05-23] MEDS: Clopidogrel Bisulfate 75 MG TABLET PO (08:10)
[2023-05-23] MEDS: Fluticasone/Umeclidinium/Vilanterol 200/62.5/25 BLST.W.DEV 1 PUFF INHALE (08:20)
[2023-05-23 08:22] VITALS: PULSE 65; RESP 17; O2SAT 93
[2023-05-23 11:24] LABS: Glucose, Whole Blood 120 mg/dL (60-115)
--- NOTE | 2023-05-23 12:26 | P.PNIM_ITS ---
Subjective Subjective Date of Service: 05/23/23 Interval History: Seen and evaluated this morning alert and interactive laying comfortable in his bed denies any complaints Review of Systems Review of Systems: Yes all other systems are reviewed and are negative Physical Exam 2 Vital Signs: Vital Signs: Last Vital Signs Temp 97.0 F 05/23/23 07:18 Pulse 65 05/23/23 08:22 Resp 17 05/23/23 08:22 BP 134/63 05/23/23 07:18 Pulse Ox 94 05/23/23 07:18 O2 Del Method Nasal Cannula 05/23/23 07:18 O2 Flow Rate 2 05/23/23 07:18 Oxygen Flow Rate 3 03/15/23 18:32 BMI result Body Mass Index 44.3 Const: Other: Constitutional : interactive, not in distress, legally blind, morbidly obese Cardiovascular : no JVP, no lower extremity edema Respiratory : bilateral chest movement, not in resp distress Gastrointestinal: soft, lax, Non tender Skin : Warm, Dry Neurological : Alert & oriented , No focal deficit Objective Data Active Medications Acetaminophen (Acetaminophen 325 Mg Tablet) 975 mg PO TID [facility] Last Admin: 05/23/23 08:09 Dose: 975 mg Documented By: BRENDEN Al Hydroxide/Mg Hydroxide (Magnesium Hydrox/Alum Hydrox 30 Ml Oral.Susp) 30 ml PO Q6H PRN PRN Reason: dyspepsia Albuterol Sulfate (Albuterol Sulfate 90 Mcg 8 Gm Inhaler) 2 puff INHALE Q4H PRN PRN Reason: Wheezing Aspirin (Aspirin Enteric Coated 81 Mg Tablet.) 81 mg PO DAILY [facility] Last Admin: 05/23/23 08:10 Dose: 81 mg Documented By: BRENDEN Atorvastatin Calcium (Atorvastatin Calcium 40 Mg Tablet) 40 mg PO BEDTIME [facility] Last Admin: 05/22/23 20:48 Dose: 40 mg Documented By: BINH Carvedilol (Carvedilol 3.125 Mg Tablet) 3.125 mg PO BID [facility]; Protocol Last Admin: 05/23/23 08:10 Dose: 3.125 mg Documented By: BRENDEN Clopidogrel Bisulfate (Clopidogrel Bisulfate 75 Mg Tablet) 75 mg PO DAILY [facility] Last Admin: 05/23/23 08:10 Dose: 75 mg Documented By: BRENDEN Cyanocobalamin (Cyanocobalamin (Vitamin B-12) 1,000 Mcg/Ml Vial) 1,000 mcg IM Q30D [facility] Last Admin: 05/08/23 09:05 Dose: Not Given Documented By: ALEXA Non-Admin Reason: Patient Refused Docusate Sodium (Docusate Sodium 100 Mg Capsule) 100 mg PO BID PRN PRN Reason: Constipation Enoxaparin Sodium (Enoxaparin Sodium 40 Mg/0.4 Ml Syringe) 40 mg SUBCUT Q24H [facility] Last Admin: 05/22/23 20:48 Dose: 40 mg Documented By: BINH Fluticasone/Umeclidinium/Vilanterol (Fluticasone/Umeclidinium/Vilanterol 200/62.5/25 Blst.W.Dev) 1 puff INHALE RDAILY [facility] Last Admin: 05/23/23 08:20 Dose: 1 puff Documented By: PERLA Folic Acid (Folic Acid 1 Mg Tablet) 1 mg PO DAILY [facility] Last Admin: 05/23/23 08:10 Dose: 1 mg Documented By: BRENDEN Furosemide (Furosemide 40 Mg Tablet) 40 mg PO DAILY [facility]; Protocol Last Admin: 05/23/23 08:10 Dose: 40 mg Documented By: BRENDEN Gabapentin (Gabapentin 100 Mg Capsule) 200 mg PO BID [facility] Last Admin: 05/05/23 09:49 Dose: 200 mg Documented By: LEANN Glucose (Glucose Gel 15 Gm Gel..Gram.) 15 gm PO Q15M PRN; Protocol PRN Reason: per Hypoglycemia Standing Ord. Dextrose (D10) 250 mls @ 750 mls/hr IV Q15M PRN PRN Reason: per Hypoglycemia Standing Ord. Insulin Human Lispro (Insulin Lispro 100 Unit/Ml 3 Ml Vial) 0 unit SUBCUT QIDACHS [facility]; Protocol Last Admin: 05/23/23 08:10 Dose: Not Given Documented By: BRENDEN Non-Admin Reason: No Insulin Coverage Lactulose (Lactulose 20 Gm/30 Ml Solution) 10 gm PO DAILY PRN PRN Reason: Constipation Loratadine (Loratadine 10 Mg Tablet) 10 mg PO DAILY PRN PRN Reason: Itching Last Admin: 05/22/23 10:47 Dose: 10 mg Documented By: BRENDEN Melatonin (Melatonin 3 Mg Tablet) 6 mg PO BEDTIME PRN PRN Reason: Insomnia Last Admin: 05/05/23 20:54 Dose: 6 mg Documented By: KRYSTLE Metformin HCl (Metformin Hcl Er 500 Mg Tab.Er.24h) 500 mg PO DAILY@1800 [facility] Last Admin: 05/22/23 17:04 Dose: 500 mg Documented By: BRENDEN Omeprazole (Omeprazole 20 Mg Capsule.Dr) 20 mg PO DAILY@0630 [facility] Last Admin: 05/23/23 05:34 Dose: 20 mg Documented By: BINH Ondansetron HCl (Ondansetron Hcl 4 Mg/2 Ml Vial) 4 mg IVPUSH Q8H PRN PRN Reason: Nausea and Vomiting Last Admin: 04/05/23 12:43 Dose: 4 mg Documented By: FERMIN Polyethylene Glycol (Polyethylene Glycol 3350 17 Gm Powd.Pack) 17 gm PO DAILY PRN PRN Reason: Constipation Quetiapine Fumarate (Quetiapine Fumarate 50 Mg Tablet) 50 mg PO Q8H PRN PRN Reason: anxiety/restlessness Quetiapine Fumarate (Quetiapine Fumarate 25 Mg Tablet) 25 mg PO TID [facility] Last Admin: 05/23/23 08:10 Dose: 25 mg Documented By: BRENDEN Senna (Sennosides 8.6 Mg Tablet) 17.2 mg PO BEDTIME [facility] Last Admin: 05/22/23 20:50 Dose: Not Given Documented By: BINH Non-Admin Reason: multiple bm Sertraline HCl (Sertraline Hcl 100 Mg Tablet) 100 mg PO DAILY [facility] Last Admin: 05/23/23 08:10 Dose: 100 mg Documented By: BRENDEN Sodium Chloride (0.9 % Sodium Chloride Flush 3 Ml Syringe) 3 ml IVFLUSH QSHIFT [facility] Last Admin: 05/23/23 08:10 Dose: Not Given Documented By: BRENDEN Non-Admin Reason: no iv access Trazodone HCl (Trazodone Hcl 50 Mg Tablet) 50 mg PO BEDTIME PRN PRN Reason: insomnia Last Admin: 05/13/23 20:46 Dose: 50 mg Documented By: BINH Labs 05/19/23 05:24 05/21/23 05:25 Labs: Laboratory Results - last 24 hr 05/22/23 05/22/23 05/23/23 16:08 20:15 07:22 POC Glucose 124 H 106 96 05/23/23 11:12 POC Glucose 120 H Assessment and Plan (1) Major neurocognitive disorder: Status: Acute Plan 72M PMH significant for?CAD, [id number] diabetes type 2, who initially presented to the ED on 03/15/2023 from SNF after reportedly having hallucinations and being combative with staff. Pt was placed in physician observation in the ED until he became hypoxic and tested positive for COVID admitted to the medical floor for treatment and further evaluation of acute hypoxic respiratory failure in the setting of COVID infection and new awaiting Placement Toxic metabolic encephalopathy more alert and interactive Likely related to medications, hospital stay among others work up including head CTH, CBC, BMP, UA all have been negative. Concern for oversdation with meds, Lowered Seroquel to 25 mg tid with good response PRN Seroquel if needed (did not have to use since 05/04) Psych input appreciated diet advanced to regular back lower Lumbar abcess s/p I and D, culture did not grow anything. Has completed course of Augmentin local wound care, no packing , foam dressing and change every other day Acute hypoxic respiratory failure in the setting COVID 19 infection, resolved Finished course of dexamethasone and remdesivir baseline home oxygen 2 L Left mid back discomfort lipoma, no acute intervention. HTN continue coreg, lasix morbid obesity weight loss advised Eaq-xoeacdp-vqoanskib type 2 diabetes acceptable control on current therapies continue metformin lispro correctional scale adjust as needed Full Code Lovenox requires continued hospital stay for safe disposition and medication management for Somnolence and altered mentation pending safe discharge plan . Quality Stroke Does the patient have a stroke diagnosis?: No VTE Prior VTE?: No VTE Risk Level:: Medical - moderate - high VTE Device Contraindication: Treatment Not Indicated VTE Drug Contraindication: N/A - Med Ordered
[2023-05-23 15:15] VITALS: BP 143/60; PULSE 63; RESP 18; TEMP 36.2; O2SAT 92
[2023-05-23] MEDS: Loratadine 10 MG TABLET PO (15:18)
--- NOTE | 2023-05-23 15:37 | PC.NURSE ---
Addendum entered by Faustina Coleman, SREE 05/23/23 17:03: Ammonium lactate lotion brought up by pharm, pt refused to allow this RN to apply. Original Note: Pt continues to scratch at bilateral arms and hands, this is causing scabs to open up and bleed. Bandaids applied multiple times, pt removed. Claritin given with poor effect. MD Ortiz ordered ammonium lactate lotion, waiting for med from pharm.
[2023-05-23 16:15] LABS: Glucose, Whole Blood 128 mg/dL (60-115)
[2023-05-23] MEDS: metFORMIN HCl ER 500 MG TAB.ER.24H PO (17:00)
[2023-05-23 19:13] VITALS: BP 136/64; PULSE 86; RESP 19; TEMP 36.5; O2SAT 94
[2023-05-23] MEDS: Atorvastatin Calcium 40 MG TABLET PO (20:09)
[2023-05-23] MEDS: Enoxaparin Sodium 40 MG/0.4 ML SYRINGE SUBCUT (20:09)
[2023-05-23 20:23] LABS: Glucose, Whole Blood 143 mg/dL (60-115)
[2023-05-24 03:15] VITALS: BP 138/64; PULSE 69; RESP 19; TEMP 36.3; O2SAT 95
[2023-05-24] MEDS: Omeprazole 20 MG CAPSULE.DR PO (05:21)
[2023-05-24 07:18] LABS: Glucose, Whole Blood 101 mg/dL (60-115)
[2023-05-24 07:30] VITALS: BP 135/60; PULSE 64; RESP 18; TEMP 36.2; O2SAT 95
[2023-05-24] MEDS: QUEtiapine Fumarate 25 MG TABLET PO ×3 (07:58→20:47)
[2023-05-24] MEDS: Aspirin Enteric Coated 81 MG TABLET.DR PO (07:58)
[2023-05-24] MEDS: Folic Acid 1 MG TABLET PO (08:00)
[2023-05-24] MEDS: carvediloL 3.125 MG TABLET PO ×2 (08:00→20:47)
[2023-05-24] MEDS: Acetaminophen 325 MG TABLET 975 MG PO ×3 (08:00→20:47)
[2023-05-24] MEDS: Clopidogrel Bisulfate 75 MG TABLET PO (08:00)
[2023-05-24] MEDS: Furosemide 40 MG TABLET PO (08:00)
[2023-05-24] MEDS: Sertraline HCL 100 MG TABLET PO (08:00)
[2023-05-24] MEDS: Fluticasone/Umeclidinium/Vilanterol 200/62.5/25 BLST.W.DEV 1 PUFF INHALE (08:14)
[2023-05-24 08:16] VITALS: PULSE 65; RESP 16; O2SAT 95
--- NOTE | 2023-05-24 09:57 | HO.PM.IMPN ---
Subjective Subjective Date of Service: 05/24/23 Interval History: Seen and evaluated this morning alert and interactive laying comfortable in his bed denies any complaints Review of Systems Review of Systems: Yes all other systems are reviewed and are negative Physical Exam Vital Signs: Vital Signs: Last Vital Signs Temp 97.1 F 05/24/23 07:30 Pulse 65 05/24/23 08:16 Resp 16 05/24/23 08:16 BP 135/60 05/24/23 07:30 Pulse Ox 95 05/24/23 07:30 O2 Del Method Room Air 05/24/23 07:30 O2 Flow Rate 2 05/24/23 03:15 Oxygen Flow Rate 3 03/15/23 18:32 BMI result Body Mass Index 44.3 Const: Other: Constitutional : interactive, not in distress, legally blind, morbidly obese Cardiovascular : no JVP, no lower extremity edema Respiratory : bilateral chest movement, not in resp distress Gastrointestinal: soft, lax, Non tender Skin : Warm, Dry Neurological : Alert & oriented , No focal deficit Objective Data Active Medications Acetaminophen (Acetaminophen 325 Mg Tablet) 975 mg PO TID [facility] Last Admin: 05/24/23 08:00 Dose: 975 mg Documented By: RYLEE Al Hydroxide/Mg Hydroxide (Magnesium Hydrox/Alum Hydrox 30 Ml Oral.Susp) 30 ml PO Q6H PRN PRN Reason: dyspepsia Albuterol Sulfate (Albuterol Sulfate 90 Mcg 8 Gm Inhaler) 2 puff INHALE Q4H PRN PRN Reason: Wheezing Aspirin (Aspirin Enteric Coated 81 Mg Tablet.) 81 mg PO DAILY [facility] Last Admin: 05/24/23 07:58 Dose: 81 mg Documented By: RYLEE Atorvastatin Calcium (Atorvastatin Calcium 40 Mg Tablet) 40 mg PO BEDTIME [facility] Last Admin: 05/23/23 20:09 Dose: 40 mg Documented By: WOOD Carvedilol (Carvedilol 3.125 Mg Tablet) 3.125 mg PO BID [facility]; Protocol Last Admin: 05/24/23 08:00 Dose: 3.125 mg Documented By: RYLEE Clopidogrel Bisulfate (Clopidogrel Bisulfate 75 Mg Tablet) 75 mg PO DAILY [facility] Last Admin: 05/24/23 08:00 Dose: 75 mg Documented By: RYLEE Cyanocobalamin (Cyanocobalamin (Vitamin B-12) 1,000 Mcg/Ml Vial) 1,000 mcg IM Q30D [facility] Last Admin: 05/08/23 09:05 Dose: Not Given Documented By: ALEXA Non-Admin Reason: Patient Refused Docusate Sodium (Docusate Sodium 100 Mg Capsule) 100 mg PO BID PRN PRN Reason: Constipation Enoxaparin Sodium (Enoxaparin Sodium 40 Mg/0.4 Ml Syringe) 40 mg SUBCUT Q24H [facility] Last Admin: 05/23/23 20:09 Dose: 40 mg Documented By: WOOD Fluticasone/Umeclidinium/Vilanterol (Fluticasone/Umeclidinium/Vilanterol 200/62.5/25 Blst.W.Dev) 1 puff INHALE RDAILY [facility] Last Admin: 05/24/23 08:14 Dose: 1 puff Documented By: ANITA Folic Acid (Folic Acid 1 Mg Tablet) 1 mg PO DAILY [facility] Last Admin: 05/24/23 08:00 Dose: 1 mg Documented By: RYLEE Furosemide (Furosemide 40 Mg Tablet) 40 mg PO DAILY [facility]; Protocol Last Admin: 05/24/23 08:00 Dose: 40 mg Documented By: RYLEE Gabapentin (Gabapentin 100 Mg Capsule) 200 mg PO BID [facility] Last Admin: 05/05/23 09:49 Dose: 200 mg Documented By: LEANN Glucose (Glucose Gel 15 Gm Gel..Gram.) 15 gm PO Q15M PRN; Protocol PRN Reason: per Hypoglycemia Standing Ord. Dextrose (D10) 250 mls @ 750 mls/hr IV Q15M PRN PRN Reason: per Hypoglycemia Standing Ord. Insulin Human Lispro (Insulin Lispro 100 Unit/Ml 3 Ml Vial) 0 unit SUBCUT QIDACHS [facility]; Protocol Last Admin: 05/24/23 07:20 Dose: Not Given Documented By: RYLEE Non-Admin Reason: No Insulin Coverage Lactic Acid (Ammonium Lactate 12 % Lotion 226 Gm Bottle) 1 appl TOPICAL BID [facility]; Protocol Last Admin: 05/24/23 08:05 Dose: Not Given Documented By: RYLEE Non-Admin Reason: Patient Refused Lactulose (Lactulose 20 Gm/30 Ml Solution) 10 gm PO DAILY PRN PRN Reason: Constipation Loratadine (Loratadine 10 Mg Tablet) 10 mg PO DAILY PRN PRN Reason: Itching Last Admin: 05/23/23 15:18 Dose: 10 mg Documented By: BRENDEN Melatonin (Melatonin 3 Mg Tablet) 6 mg PO BEDTIME PRN PRN Reason: Insomnia Last Admin: 05/05/23 20:54 Dose: 6 mg Documented By: KRYSTLE Metformin HCl (Metformin Hcl Er 500 Mg Tab.Er.24h) 500 mg PO DAILY@1800 [facility] Last Admin: 05/23/23 17:00 Dose: 500 mg Documented By: BRENDEN Omeprazole (Omeprazole 20 Mg Capsule.Dr) 20 mg PO DAILY@0630 [facility] Last Admin: 05/24/23 05:21 Dose: 20 mg Documented By: WOOD Ondansetron HCl (Ondansetron Hcl 4 Mg/2 Ml Vial) 4 mg IVPUSH Q8H PRN PRN Reason: Nausea and Vomiting Last Admin: 04/05/23 12:43 Dose: 4 mg Documented By: FERMIN Polyethylene Glycol (Polyethylene Glycol 3350 17 Gm Powd.Pack) 17 gm PO DAILY PRN PRN Reason: Constipation Quetiapine Fumarate (Quetiapine Fumarate 50 Mg Tablet) 50 mg PO Q8H PRN PRN Reason: anxiety/restlessness Quetiapine Fumarate (Quetiapine Fumarate 25 Mg Tablet) 25 mg PO TID [facility] Last Admin: 05/24/23 07:58 Dose: 25 mg Documented By: RYLEE Senna (Sennosides 8.6 Mg Tablet) 17.2 mg PO BEDTIME [facility] Last Admin: 05/23/23 20:14 Dose: Not Given Documented By: WOOD Non-Admin Reason: mult bm's today Sertraline HCl (Sertraline Hcl 100 Mg Tablet) 100 mg PO DAILY [facility] Last Admin: 05/24/23 08:00 Dose: 100 mg Documented By: RYLEE Sodium Chloride (0.9 % Sodium Chloride Flush 3 Ml Syringe) 3 ml IVFLUSH QSHIFT [facility] Last Admin: 05/24/23 07:58 Dose: Not Given Documented By: RYLEE Non-Admin Reason: No Access Trazodone HCl (Trazodone Hcl 50 Mg Tablet) 50 mg PO BEDTIME PRN PRN Reason: insomnia Last Admin: 05/13/23 20:46 Dose: 50 mg Documented By: BINH Labs 05/19/23 05:24 05/21/23 05:25 Labs: Laboratory Results - last 24 hr 05/23/23 05/23/23 05/23/23 11:12 16:04 20:10 POC Glucose 120 H 128 H 143 H 05/24/23 07:05 POC Glucose 101 Assessment and Plan (1) Major neurocognitive disorder: Status: Acute Plan 72M PMH significant for?CAD, [id number] diabetes type 2, who initially presented to the ED on 03/15/2023 from SNF after reportedly having hallucinations and being combative with staff. Pt was placed in physician observation in the ED until he became hypoxic and tested positive for COVID admitted to the medical floor for treatment and further evaluation of acute hypoxic respiratory failure in the setting of COVID infection and new awaiting Placement Toxic metabolic encephalopathy more alert and interactive Likely related to medications, hospital stay among others work up including head CTH, CBC, BMP, UA all have been negative. Concern for oversdation with meds, Lowered Seroquel to 25 mg tid with good response PRN Seroquel if needed (did not have to use since 05/04) Psych input appreciated diet advanced to regular back lower Lumbar abcess s/p I and D, culture did not grow anything. Has completed course of Augmentin local wound care, no packing , foam dressing and change every other day Acute hypoxic respiratory failure in the setting COVID 19 infection, resolved Finished course of dexamethasone and remdesivir baseline home oxygen 2 L Left mid back discomfort lipoma, no acute intervention. HTN continue coreg, lasix morbid obesity weight loss advised [id number]-[id number] type 2 diabetes acceptable control on current therapies continue metformin lispro correctional scale adjust as needed Full Code Lovenox Unable to find accepting SNF. plan will be to go home with services. requires continued hospital stay for safe disposition pending Bariatric equipments delivery and safe discharge plan . Quality Stroke Does the patient have a stroke diagnosis?: No VTE Prior VTE?: No VTE Risk Level:: Medical - moderate - high VTE Device Contraindication: Treatment Not Indicated VTE Drug Contraindication: N/A - Med Ordered
[2023-05-24 11:46] LABS: Glucose, Whole Blood 131 mg/dL (60-115)
[2023-05-24 15:15] VITALS: BP 130/65; PULSE 64; RESP 16; TEMP 36.1; O2SAT 92
[2023-05-24 16:23] LABS: Glucose, Whole Blood 121 mg/dL (60-115)
--- NOTE | 2023-05-24 16:45 | MHC.CM.PN ---
CM MET WITH PT AND SPOKE TO DAUGHTER CLARKE TODAY PTS PLAN IS TO RETURN HOME ONCE DME IS DELIVERED THEY ARE AWARE SCRIPTS AND CLINICALS WERE SENT TO [place] AND [facility] IS WORKING ON AUTH JASPREET EXPLAINED THIS COULD TAKE SOME TIMES JASPREET ALSO ADDRESSED CONCERNS EXPRESSED BY HER MOTHER EARLIER IN THE ADMISSION INCLUDING HER SAYING SHE COULD NOT CARE FOR THE PT CLARKE SAYS SHE THINKS HER MOTHER WAS CONCERNED ABOUT THE WAY IT WAS SENIOR ELECTRICAL DESIGNER, WHEN THE PT WAS AMBULATING AND FALLING HER MOTHER WAS ALSO THE PRIMARY CLINICAL RESEARCH ASSOCIATE SENIOR ELECTRICAL DESIGNER, BUT NOW THEY WILL GIVE THOSE HOURS TO OUTSIDE LEAD PYTHON DEVELOPER SO HER MOTHER DOES NOT BURN OUT
[2023-05-24] MEDS: Loratadine 10 MG TABLET PO (17:41)
[2023-05-24] MEDS: metFORMIN HCl ER 500 MG TAB.ER.24H PO (17:41)
[2023-05-24 19:30] VITALS: BP 131/60; PULSE 73; RESP 16; TEMP 36.2; O2SAT 94
[2023-05-24 19:39] LABS: Glucose, Whole Blood 151 mg/dL (60-115)
[2023-05-24] MEDS: Enoxaparin Sodium 40 MG/0.4 ML SYRINGE SUBCUT (20:46)
[2023-05-24] MEDS: Sennosides 8.6 MG TABLET 17.2 MG PO (20:47)
[2023-05-24] MEDS: Insulin Lispro 100 UNIT/ML 3 ML VIAL SUBCUT (20:47)
[2023-05-24] MEDS: Atorvastatin Calcium 40 MG TABLET PO (20:47)
[2023-05-25 03:39] VITALS: BP 153/61; PULSE 57; RESP 18; TEMP 36.1; O2SAT 97
[2023-05-25 05:44] LABS: Hematocrit 37.3 % (42.0-52.0); Hemoglobin 12.6 g/dl (14.0-18.0); Mean Corpuscular HGB Conc 33.8 g/dl (31.0-36.0); Mean Corpuscular Hemoglobin 33.6 pg (27.0-33.0); Mean Corpuscular Volume 99.5 fL (80.0-98.0); Mean Platelet Volume 9.5 fL (9.4-12.4); Platelet Count 142 X10*3/uL (160-400); Red Blood Count 3.75 X10*6/uL (4.60-5.80); Red Cell Distribution Width 14.4 % (11.0-16.0); White Blood Count 5.7 X10*3/uL (4.8-10.8)
[2023-05-25 05:55] LABS: Anion Gap 9 (12-20); Blood Urea Nitrogen 21 mg/dL (9-16); Calcium 9.1 mg/dL (8.4-10.2); Carbon Dioxide 30 mmol/L (22-29); Chloride 105 mmol/L (96-108); Creatinine Clr Calc Pharmacy 96.8; Estimated Glomerular Filt Rate > 60; Glucose Random 82 mg/dL (60-115); Potassium 3.8 mmol/L (3.3-5.1); Sodium 140 mmol/L (135-145)
[2023-05-25] MEDS: Omeprazole 20 MG CAPSULE.DR PO (05:58)
[2023-05-25 07:37] VITALS: BP 146/63; PULSE 55; RESP 18; TEMP 36.4; O2SAT 96
[2023-05-25 07:43] LABS: Glucose, Whole Blood 88 mg/dL (60-115)
[2023-05-25 08:05] VITALS: PULSE 55; RESP 18; O2SAT 94
[2023-05-25] MEDS: Fluticasone/Umeclidinium/Vilanterol 200/62.5/25 BLST.W.DEV 1 PUFF INHALE (08:05)
[2023-05-25] MEDS: Clopidogrel Bisulfate 75 MG TABLET PO (09:07)
[2023-05-25] MEDS: Aspirin Enteric Coated 81 MG TABLET.DR PO (09:07)
[2023-05-25] MEDS: Acetaminophen 325 MG TABLET 975 MG PO ×3 (09:07→20:01)
[2023-05-25] MEDS: QUEtiapine Fumarate 25 MG TABLET PO ×3 (09:07→20:01)
[2023-05-25] MEDS: Sertraline HCL 100 MG TABLET PO (09:07)
[2023-05-25] MEDS: Furosemide 40 MG TABLET PO (09:07)
[2023-05-25] MEDS: Folic Acid 1 MG TABLET PO (09:07)
[2023-05-25] MEDS: carvediloL 3.125 MG TABLET PO ×2 (09:08→20:01)
--- NOTE | 2023-05-25 09:30 | P.PNIM_ITS ---
Subjective Subjective Date of Service: 05/26/23 Interval History: Overall stable with no new issues reported Physical Exam 2 Vital Signs: Vital Signs: Last Vital Signs Temp 97.6 F 05/25/23 07:37 Pulse 55 05/25/23 08:05 Resp 18 05/25/23 08:05 BP 146/63 H 05/25/23 07:37 Pulse Ox 96 05/25/23 07:37 O2 Del Method Nasal Cannula 05/25/23 07:37 O2 Flow Rate 2.0 05/25/23 07:37 Oxygen Flow Rate 3 03/15/23 18:32 BMI result Body Mass Index 44.3 Const: Other: Constitutional : interactive, not in distress, legally blind, morbidly obese Cardiovascular : no JVP, no lower extremity edema Respiratory : bilateral chest movement, not in resp distress Gastrointestinal: soft, lax, Non tender Skin : Warm, Dry Neurological : Alert & oriented , No focal deficit Objective Data Active Medications Acetaminophen (Acetaminophen 325 Mg Tablet) 975 mg PO TID [facility] Last Admin: 05/25/23 09:07 Dose: 975 mg Documented By: CONCEPCIÓN Al Hydroxide/Mg Hydroxide (Magnesium Hydrox/Alum Hydrox 30 Ml Oral.Susp) 30 ml PO Q6H PRN PRN Reason: dyspepsia Albuterol Sulfate (Albuterol Sulfate 90 Mcg 8 Gm Inhaler) 2 puff INHALE Q4H PRN PRN Reason: Wheezing Aspirin (Aspirin Enteric Coated 81 Mg Tablet.) 81 mg PO DAILY [facility] Last Admin: 05/25/23 09:07 Dose: 81 mg Documented By: CONCEPCIÓN Atorvastatin Calcium (Atorvastatin Calcium 40 Mg Tablet) 40 mg PO BEDTIME [facility] Last Admin: 05/24/23 20:47 Dose: 40 mg Documented By: FINN Carvedilol (Carvedilol 3.125 Mg Tablet) 3.125 mg PO BID [facility]; Protocol Last Admin: 05/25/23 09:08 Dose: 3.125 mg Documented By: CONCEPCIÓN Clopidogrel Bisulfate (Clopidogrel Bisulfate 75 Mg Tablet) 75 mg PO DAILY [facility] Last Admin: 05/25/23 09:07 Dose: 75 mg Documented By: CONCEPCIÓN Cyanocobalamin (Cyanocobalamin (Vitamin B-12) 1,000 Mcg/Ml Vial) 1,000 mcg IM Q30D [facility] Last Admin: 05/08/23 09:05 Dose: Not Given Documented By: ALEXA Non-Admin Reason: Patient Refused Docusate Sodium (Docusate Sodium 100 Mg Capsule) 100 mg PO BID PRN PRN Reason: Constipation Enoxaparin Sodium (Enoxaparin Sodium 40 Mg/0.4 Ml Syringe) 40 mg SUBCUT Q24H [facility] Last Admin: 05/24/23 20:46 Dose: 40 mg Documented By: FINN Fluticasone/Umeclidinium/Vilanterol (Fluticasone/Umeclidinium/Vilanterol 200/62.5/25 Blst.W.Dev) 1 puff INHALE RDAILY [facility] Last Admin: 05/25/23 08:05 Dose: 1 puff Documented By: JASSI Folic Acid (Folic Acid 1 Mg Tablet) 1 mg PO DAILY [facility] Last Admin: 05/25/23 09:07 Dose: 1 mg Documented By: CONCEPCIÓN Furosemide (Furosemide 40 Mg Tablet) 40 mg PO DAILY [facility]; Protocol Last Admin: 05/25/23 09:07 Dose: 40 mg Documented By: CONCEPCIÓN Gabapentin (Gabapentin 100 Mg Capsule) 200 mg PO BID [facility] Last Admin: 05/05/23 09:49 Dose: 200 mg Documented By: LEANN Glucose (Glucose Gel 15 Gm Gel..Gram.) 15 gm PO Q15M PRN; Protocol PRN Reason: per Hypoglycemia Standing Ord. Dextrose (D10) 250 mls @ 750 mls/hr IV Q15M PRN PRN Reason: per Hypoglycemia Standing Ord. Insulin Human Lispro (Insulin Lispro 100 Unit/Ml 3 Ml Vial) 0 unit SUBCUT QIDACHS [facility]; Protocol Last Admin: 05/25/23 07:59 Dose: Not Given Documented By: CONCEPCIÓN Non-Admin Reason: No Insulin Coverage Lactic Acid (Ammonium Lactate 12 % Lotion 226 Gm Bottle) 1 appl TOPICAL BID [facility]; Protocol Last Admin: 05/25/23 09:18 Dose: Not Given Documented By: CONCEPCIÓN Non-Admin Reason: Patient Refused Lactulose (Lactulose 20 Gm/30 Ml Solution) 10 gm PO DAILY PRN PRN Reason: Constipation Loratadine (Loratadine 10 Mg Tablet) 10 mg PO DAILY PRN PRN Reason: Itching Last Admin: 05/24/23 17:41 Dose: 10 mg Documented By: RYLEE Melatonin (Melatonin 3 Mg Tablet) 6 mg PO BEDTIME PRN PRN Reason: Insomnia Last Admin: 05/05/23 20:54 Dose: 6 mg Documented By: KRYSTLE Metformin HCl (Metformin Hcl Er 500 Mg Tab.Er.24h) 500 mg PO DAILY@1800 [facility] Last Admin: 05/24/23 17:41 Dose: 500 mg Documented By: RYLEE Omeprazole (Omeprazole 20 Mg Capsule.Dr) 20 mg PO DAILY@0630 [facility] Last Admin: 05/25/23 05:58 Dose: 20 mg Documented By: FINN Ondansetron HCl (Ondansetron Hcl 4 Mg/2 Ml Vial) 4 mg IVPUSH Q8H PRN PRN Reason: Nausea and Vomiting Last Admin: 04/05/23 12:43 Dose: 4 mg Documented By: FERMIN Polyethylene Glycol (Polyethylene Glycol 3350 17 Gm Powd.Pack) 17 gm PO DAILY PRN PRN Reason: Constipation Quetiapine Fumarate (Quetiapine Fumarate 50 Mg Tablet) 50 mg PO Q8H PRN PRN Reason: anxiety/restlessness Quetiapine Fumarate (Quetiapine Fumarate 25 Mg Tablet) 25 mg PO TID [facility] Last Admin: 05/25/23 09:07 Dose: 25 mg Documented By: CONCEPCIÓN Senna (Sennosides 8.6 Mg Tablet) 17.2 mg PO BEDTIME [facility] Last Admin: 05/24/23 20:47 Dose: 17.2 mg Documented By: FINN Sertraline HCl (Sertraline Hcl 100 Mg Tablet) 100 mg PO DAILY [facility] Last Admin: 05/25/23 09:07 Dose: 100 mg Documented By: CONCEPCIÓN Sodium Chloride (0.9 % Sodium Chloride Flush 3 Ml Syringe) 3 ml IVFLUSH QSHIFT [facility] Last Admin: 05/25/23 09:06 Dose: Not Given Documented By: CONCEPCIÓN Non-Admin Reason: No Access Trazodone HCl (Trazodone Hcl 50 Mg Tablet) 50 mg PO BEDTIME PRN PRN Reason: insomnia Last Admin: 05/13/23 20:46 Dose: 50 mg Documented By: BINH Labs 05/25/23 05:16 05/25/23 05:16 Labs: Laboratory Results - last 24 hr 05/24/23 05/24/23 05/24/23 11:38 16:18 19:33 MCV MCH MCHC RDW Plt Count MPV Absolute Nucleated RBC Nucleated RBC % (auto) Anion Gap Estim Creat Clear Calc Estimated GFR POC Glucose 131 H 121 H 151 H Random Glucose Calcium 05/25/23 05/25/23 05:16 07:39 MCV 99.5 H MCH 33.6 H MCHC 33.8 RDW 14.4 Plt Count 142 L MPV 9.5 Absolute Nucleated RBC 0.000 Nucleated RBC % (auto) 0.0 Anion Gap 9 L Estim Creat Clear Calc 96.8 Estimated GFR > 60 POC Glucose 88 Random Glucose 82 Calcium 9.1 Assessment and Plan (1) Major neurocognitive disorder: Status: Acute Plan 72M PMH significant for?CAD, [id number] diabetes type 2, who initially presented to the ED on 03/15/2023 from SNF after reportedly having hallucinations and being combative with staff. Pt was placed in physician observation in the ED until he became hypoxic and tested positive for COVID admitted to the medical floor for treatment and further evaluation of acute hypoxic respiratory failure in the setting of COVID infection and new awaiting Placement Toxic metabolic encephalopathy, Likely related to medications, hospital stay among others. being more alert and interactive work up included head CTH, CBC, BMP, UA all have been negative. Concern for oversdation with meds, Lowered Seroquel to 25 mg tid with good response PRN Seroquel if needed (did not have to use since 05/04) Psych input appreciated back lower Lumbar abcess s/p I and D, culture did not grow anything. Has completed course of Augmentin local wound care, no packing , foam dressing and change every other day Acute hypoxic respiratory failure in the setting COVID 19 infection, resolved Finished course of dexamethasone and remdesivir baseline home oxygen 2 L Left mid back discomfort lipoma, no acute intervention. HTN continue coreg, lasix morbid obesity weight loss advised [id number] type 2 diabetes acceptable control on current therapies continue metformin lispro correctional scale adjust as needed Full Code Lovenox Unable to find accepting SNF. plan will be to go home with services. requires continued hospital stay for safe disposition pending Bariatric equipments delivery and safe discharge plan . Quality Stroke Does the patient have a stroke diagnosis?: No VTE Prior VTE?: No VTE Risk Level:: Medical - moderate - high VTE Device Contraindication: Treatment Not Indicated VTE Drug Contraindication: N/A - Med Ordered
[2023-05-25 11:36] LABS: Glucose, Whole Blood 105 mg/dL (60-115)
[2023-05-25 15:43] VITALS: BP 156/63; PULSE 74; RESP 15; TEMP 36; O2SAT 96
[2023-05-25 15:47] VITALS: BP 120/63; PULSE 87; RESP 15; TEMP 36.8; O2SAT 91
[2023-05-25 16:34] LABS: Glucose, Whole Blood 122 mg/dL (60-115)
[2023-05-25] MEDS: metFORMIN HCl ER 500 MG TAB.ER.24H PO (17:02)
[2023-05-25 19:33] VITALS: BP 106/60; PULSE 70; RESP 18; TEMP 36; O2SAT 93
[2023-05-25 19:57] LABS: Glucose, Whole Blood 122 mg/dL (60-115)
[2023-05-25] MEDS: Sennosides 8.6 MG TABLET 17.2 MG PO (20:00)
[2023-05-25] MEDS: Enoxaparin Sodium 40 MG/0.4 ML SYRINGE SUBCUT (20:01)
[2023-05-25] MEDS: Atorvastatin Calcium 40 MG TABLET PO (20:01)
[2023-05-26 03:25] VITALS: BP 129/60; PULSE 66; RESP 18; TEMP 36.3; O2SAT 93
[2023-05-26] MEDS: Omeprazole 20 MG CAPSULE.DR PO (07:03)
[2023-05-26 07:34] LABS: Glucose, Whole Blood 104 mg/dL (60-115)
[2023-05-26] MEDS: Fluticasone/Umeclidinium/Vilanterol 200/62.5/25 BLST.W.DEV 1 PUFF INHALE (07:40)
[2023-05-26 07:41] VITALS: PULSE 66; RESP 18; O2SAT 93
[2023-05-26 07:49] VITALS: BP 120/57; PULSE 62; RESP 18; TEMP 36.1; O2SAT 95
--- NOTE | 2023-05-26 09:35 | P.PNIM_ITS ---
Subjective Subjective Date of Service: 05/26/23 Interval History: Overall stable with no new issues reported, still awaiting placement Physical Exam 2 Vital Signs: Vital Signs: Last Vital Signs Temp 96.9 F 05/26/23 07:49 Pulse 62 05/26/23 07:49 Resp 18 05/26/23 07:49 BP 120/57 L 05/26/23 07:49 Pulse Ox 95 05/26/23 07:49 O2 Del Method Nasal Cannula 05/26/23 07:49 O2 Flow Rate 2.0 05/26/23 07:49 Oxygen Flow Rate 3 03/15/23 18:32 BMI result Body Mass Index 44.3 Const: Other: Constitutional : interactive, not in distress, legally blind, morbidly obese Cardiovascular : no JVP, no lower extremity edema Respiratory : bilateral chest movement, not in resp distress Gastrointestinal: soft, lax, Non tender Skin : Warm, Dry Neurological : Alert & oriented , No focal deficit Objective Data Active Medications Acetaminophen (Acetaminophen 325 Mg Tablet) 975 mg PO TID [facility] Last Admin: 05/25/23 20:01 Dose: 975 mg Documented By: FINN Al Hydroxide/Mg Hydroxide (Magnesium Hydrox/Alum Hydrox 30 Ml Oral.Susp) 30 ml PO Q6H PRN PRN Reason: dyspepsia Albuterol Sulfate (Albuterol Sulfate 90 Mcg 8 Gm Inhaler) 2 puff INHALE Q4H PRN PRN Reason: Wheezing Aspirin (Aspirin Enteric Coated 81 Mg Tablet.) 81 mg PO DAILY [facility] Last Admin: 05/25/23 09:07 Dose: 81 mg Documented By: CONCEPCIÓN Atorvastatin Calcium (Atorvastatin Calcium 40 Mg Tablet) 40 mg PO BEDTIME [facility] Last Admin: 05/25/23 20:01 Dose: 40 mg Documented By: FINN Carvedilol (Carvedilol 3.125 Mg Tablet) 3.125 mg PO BID [facility]; Protocol Last Admin: 05/25/23 20:01 Dose: 3.125 mg Documented By: FINN Clopidogrel Bisulfate (Clopidogrel Bisulfate 75 Mg Tablet) 75 mg PO DAILY [facility] Last Admin: 05/25/23 09:07 Dose: 75 mg Documented By: CONCEPCIÓN Cyanocobalamin (Cyanocobalamin (Vitamin B-12) 1,000 Mcg/Ml Vial) 1,000 mcg IM Q30D [facility] Last Admin: 05/08/23 09:05 Dose: Not Given Documented By: ALEXA Non-Admin Reason: Patient Refused Docusate Sodium (Docusate Sodium 100 Mg Capsule) 100 mg PO BID PRN PRN Reason: Constipation Enoxaparin Sodium (Enoxaparin Sodium 40 Mg/0.4 Ml Syringe) 40 mg SUBCUT Q24H [facility] Last Admin: 05/25/23 20:01 Dose: 40 mg Documented By: FINN Fluticasone/Umeclidinium/Vilanterol (Fluticasone/Umeclidinium/Vilanterol 200/62.5/25 Blst.W.Dev) 1 puff INHALE RDAILY [facility] Last Admin: 05/26/23 07:40 Dose: 1 puff Documented By: JASSI Folic Acid (Folic Acid 1 Mg Tablet) 1 mg PO DAILY [facility] Last Admin: 05/25/23 09:07 Dose: 1 mg Documented By: CONCEPCIÓN Furosemide (Furosemide 40 Mg Tablet) 40 mg PO DAILY [facility]; Protocol Last Admin: 05/25/23 09:07 Dose: 40 mg Documented By: CONCEPCIÓN Gabapentin (Gabapentin 100 Mg Capsule) 200 mg PO BID [facility] Last Admin: 05/05/23 09:49 Dose: 200 mg Documented By: LEANN Glucose (Glucose Gel 15 Gm Gel..Gram.) 15 gm PO Q15M PRN; Protocol PRN Reason: per Hypoglycemia Standing Ord. Dextrose (D10) 250 mls @ 750 mls/hr IV Q15M PRN PRN Reason: per Hypoglycemia Standing Ord. Insulin Human Lispro (Insulin Lispro 100 Unit/Ml 3 Ml Vial) 0 unit SUBCUT QIDACHS [facility]; Protocol Last Admin: 05/26/23 08:00 Dose: Not Given Documented By: CONCEPCIÓN Non-Admin Reason: No Insulin Coverage Lactic Acid (Ammonium Lactate 12 % Lotion 226 Gm Bottle) 1 appl TOPICAL BID [facility]; Protocol Last Admin: 05/25/23 20:01 Dose: Not Given Documented By: FINN Non-Admin Reason: Patient Refused Lactulose (Lactulose 20 Gm/30 Ml Solution) 10 gm PO DAILY PRN PRN Reason: Constipation Loratadine (Loratadine 10 Mg Tablet) 10 mg PO DAILY PRN PRN Reason: Itching Last Admin: 05/24/23 17:41 Dose: 10 mg Documented By: RYLEE Melatonin (Melatonin 3 Mg Tablet) 6 mg PO BEDTIME PRN PRN Reason: Insomnia Last Admin: 05/05/23 20:54 Dose: 6 mg Documented By: KRYSTLE Metformin HCl (Metformin Hcl Er 500 Mg Tab.Er.24h) 500 mg PO DAILY@1800 [facility] Last Admin: 05/25/23 17:02 Dose: 500 mg Documented By: AI Omeprazole (Omeprazole 20 Mg Capsule.Dr) 20 mg PO DAILY@0630 [facility] Last Admin: 05/26/23 07:03 Dose: 20 mg Documented By: FINN Ondansetron HCl (Ondansetron Hcl 4 Mg/2 Ml Vial) 4 mg IVPUSH Q8H PRN PRN Reason: Nausea and Vomiting Last Admin: 04/05/23 12:43 Dose: 4 mg Documented By: FERMIN Polyethylene Glycol (Polyethylene Glycol 3350 17 Gm Powd.Pack) 17 gm PO DAILY PRN PRN Reason: Constipation Quetiapine Fumarate (Quetiapine Fumarate 50 Mg Tablet) 50 mg PO Q8H PRN PRN Reason: anxiety/restlessness Quetiapine Fumarate (Quetiapine Fumarate 25 Mg Tablet) 25 mg PO TID [facility] Last Admin: 05/25/23 20:01 Dose: 25 mg Documented By: FINN Senna (Sennosides 8.6 Mg Tablet) 17.2 mg PO BEDTIME [facility] Last Admin: 05/25/23 20:00 Dose: 17.2 mg Documented By: FINN Sertraline HCl (Sertraline Hcl 100 Mg Tablet) 100 mg PO DAILY [facility] Last Admin: 05/25/23 09:07 Dose: 100 mg Documented By: CONCEPCIÓN Sodium Chloride (0.9 % Sodium Chloride Flush 3 Ml Syringe) 3 ml IVFLUSH QSHIFT [facility] Last Admin: 05/26/23 00:14 Dose: Not Given Documented By: FINN Non-Admin Reason: No Access Trazodone HCl (Trazodone Hcl 50 Mg Tablet) 50 mg PO BEDTIME PRN PRN Reason: insomnia Last Admin: 05/13/23 20:46 Dose: 50 mg Documented By: BINH Labs 05/25/23 05:16 05/25/23 05:16 Labs: Laboratory Results - last 24 hr 05/25/23 05/25/23 05/25/23 11:24 16:29 19:36 POC Glucose 105 122 H 122 H 05/26/23 07:26 POC Glucose 104 Assessment and Plan (1) Major neurocognitive disorder: Status: Acute Plan 72M PMH significant for?CAD, ysp-yzxfbnt-qufejbqzf diabetes type 2, who initially presented to the ED on 03/15/2023 from SNF after reportedly having hallucinations and being combative with staff. Pt was placed in physician observation in the ED until he became hypoxic and tested positive for COVID admitted to the medical floor for treatment and further evaluation of acute hypoxic respiratory failure in the setting of COVID infection and new awaiting Placement Toxic metabolic encephalopathy, Likely related to medications, change in scenery, resolved work up included head CTH, CBC, BMP, UA all have been negative. Concern for oversdation with meds, Lowered Seroquel to 25 mg tid with good response PRN Seroquel if needed (did not have to use since 05/04) Psych input appreciated back lower Lumbar abcess s/p I and D, culture did not grow anything. Has completed course of Augmentin local wound care, no packing , foam dressing and change every other day Acute hypoxic respiratory failure in the setting COVID 19 infection, resolved Finished course of dexamethasone and remdesivir baseline home oxygen 2 L Left mid back discomfort lipoma, no acute intervention. HTN continue coreg, lasix morbid obesity weight loss advised Sou-csrhyuy-alseqzezl type 2 diabetes acceptable control on current therapies continue metformin lispro correctional scale adjust as needed Full Code Lovenox Unable to find accepting SNF. plan will be to go home with services. requires continued hospital stay for safe disposition pending Bariatric equipments delivery and safe discharge plan . Quality Stroke Does the patient have a stroke diagnosis?: No VTE Prior VTE?: No VTE Risk Level:: Medical - moderate - high VTE Device Contraindication: Treatment Not Indicated VTE Drug Contraindication: N/A - Med Ordered
[2023-05-26] MEDS: Acetaminophen 325 MG TABLET 975 MG PO ×3 (10:20→20:13)
[2023-05-26] MEDS: Clopidogrel Bisulfate 75 MG TABLET PO (10:21)
[2023-05-26] MEDS: Sertraline HCL 100 MG TABLET PO (10:21)
[2023-05-26] MEDS: Furosemide 40 MG TABLET PO (10:21)
[2023-05-26] MEDS: QUEtiapine Fumarate 25 MG TABLET PO ×3 (10:21→20:13)
[2023-05-26] MEDS: Folic Acid 1 MG TABLET PO (10:21)
[2023-05-26] MEDS: Aspirin Enteric Coated 81 MG TABLET.DR PO (10:21)
[2023-05-26] MEDS: carvediloL 3.125 MG TABLET PO ×2 (10:21→20:13)
[2023-05-26 11:23] LABS: Glucose, Whole Blood 167 mg/dL (60-115)
[2023-05-26] MEDS: Insulin Lispro 100 UNIT/ML 3 ML VIAL SUBCUT (12:19)
[2023-05-26 14:57] VITALS: BP 157/68; PULSE 69; RESP 20; TEMP 36.2; O2SAT 95
[2023-05-26 16:04] LABS: Glucose, Whole Blood 120 mg/dL (60-115)
[2023-05-26] MEDS: metFORMIN HCl ER 500 MG TAB.ER.24H PO (18:27)
[2023-05-26 19:22] VITALS: BP 128/58; PULSE 60; RESP 20; TEMP 36.3; O2SAT 94
[2023-05-26 20:10] LABS: Glucose, Whole Blood 117 mg/dL (60-115)
[2023-05-26] MEDS: Enoxaparin Sodium 40 MG/0.4 ML SYRINGE SUBCUT (20:12)
[2023-05-26] MEDS: Atorvastatin Calcium 40 MG TABLET PO (20:13)
[2023-05-26] MEDS: Sennosides 8.6 MG TABLET 17.2 MG PO (20:13)
[2023-05-27 03:39] VITALS: BP 134/61; PULSE 60; RESP 18; TEMP 36.4; O2SAT 93
[2023-05-27 04:00] VITALS: RESP 18
[2023-05-27] MEDS: Omeprazole 20 MG CAPSULE.DR PO (06:08)
[2023-05-27 07:26] VITALS: BP 122/58; PULSE 66; RESP 18; TEMP 36.2; O2SAT 92
[2023-05-27 07:50] LABS: Glucose, Whole Blood 107 mg/dL (60-115)
[2023-05-27] MEDS: Fluticasone/Umeclidinium/Vilanterol 200/62.5/25 BLST.W.DEV 1 PUFF INHALE (08:11)
[2023-05-27 08:14] VITALS: PULSE 64; RESP 18; O2SAT 94
[2023-05-27] MEDS: carvediloL 3.125 MG TABLET PO ×2 (10:33→21:00)
[2023-05-27] MEDS: Acetaminophen 325 MG TABLET 975 MG PO ×3 (10:33→21:00)
[2023-05-27] MEDS: Folic Acid 1 MG TABLET PO (10:33)
[2023-05-27] MEDS: Sertraline HCL 100 MG TABLET PO (10:33)
[2023-05-27] MEDS: QUEtiapine Fumarate 25 MG TABLET PO ×3 (10:34→21:00)
[2023-05-27] MEDS: Clopidogrel Bisulfate 75 MG TABLET PO (10:34)
[2023-05-27] MEDS: Furosemide 40 MG TABLET PO (10:34)
[2023-05-27] MEDS: Aspirin Enteric Coated 81 MG TABLET.DR PO (10:34)
[2023-05-27 11:37] LABS: Glucose, Whole Blood 169 mg/dL (60-115)
[2023-05-27] MEDS: Insulin Lispro 100 UNIT/ML 3 ML VIAL SUBCUT (12:03)
--- NOTE | 2023-05-27 13:15 | MHC.CM.PN ---
PT MEDICALLY CLEARED TO DC PENDING DME ARRANGED AT [facility] FOR BARIATRIC BED/[facility]/WHEEL CHAIR WERE SENT TO [facility] ALONG WITH LETTER OF MEDICAL NECESSITY AND CLINICAL INFORMATION. CM SPOKE TO [facility] LIAISON, HIRA, THIS MORNING, SHE REPORTS SHE HAS BEEN IN CONTACT WITH [facility] AND IS WORKING ON THE DME AUTH
--- NOTE | 2023-05-27 14:31 | P.PNIM_ITS ---
Subjective Subjective Date of Service: 05/27/23 Interval History: Being followed for placement, seen and evaluated this morning patient offers no acute complaints, resting comfortably. Tolerating diet. Review of Systems All other system reviewed and are negative. Physical Exam 2 Vital Signs: Vital Signs: Last Vital Signs Temp 97.2 F 05/27/23 07:26 Pulse 64 05/27/23 08:14 Resp 18 05/27/23 08:14 BP 122/58 L 05/27/23 07:26 Pulse Ox 92 05/27/23 07:26 O2 Del Method Nasal Cannula 05/27/23 07:26 O2 Flow Rate 1.0 05/27/23 07:26 Oxygen Flow Rate 3 03/15/23 18:32 BMI result Body Mass Index 44.3 Const: Other: Constitutional : alert, interactive, not in distress Neck : Normal inspection, Supple, no JVD Cardiovascular : RRR, Respiratory : Clear to auscultation, no crackles, wheezes or rhonchi Gastrointestinal: soft, Normal bowel sounds, Non tender Skin : Warm, Dry Neurological : Alert , oriented x3, moving all extremities Objective Data Active Medications Acetaminophen (Acetaminophen 325 Mg Tablet) 975 mg PO TID [facility] Last Admin: 05/27/23 10:33 Dose: 975 mg Documented By: ELAINE Al Hydroxide/Mg Hydroxide (Magnesium Hydrox/Alum Hydrox 30 Ml Oral.Susp) 30 ml PO Q6H PRN PRN Reason: dyspepsia Albuterol Sulfate (Albuterol Sulfate 90 Mcg 8 Gm Inhaler) 2 puff INHALE Q4H PRN PRN Reason: Wheezing Aspirin (Aspirin Enteric Coated 81 Mg Tablet.) 81 mg PO DAILY [facility] Last Admin: 05/27/23 10:34 Dose: 81 mg Documented By: ELAINE Atorvastatin Calcium (Atorvastatin Calcium 40 Mg Tablet) 40 mg PO BEDTIME [facility] Last Admin: 05/26/23 20:13 Dose: 40 mg Documented By: RAZIA Carvedilol (Carvedilol 3.125 Mg Tablet) 3.125 mg PO BID [facility]; Protocol Last Admin: 05/27/23 10:33 Dose: 3.125 mg Documented By: ELAINE Clopidogrel Bisulfate (Clopidogrel Bisulfate 75 Mg Tablet) 75 mg PO DAILY [facility] Last Admin: 05/27/23 10:34 Dose: 75 mg Documented By: ELAINE Cyanocobalamin (Cyanocobalamin (Vitamin B-12) 1,000 Mcg/Ml Vial) 1,000 mcg IM Q30D [facility] Last Admin: 05/08/23 09:05 Dose: Not Given Documented By: ALEXA Non-Admin Reason: Patient Refused Docusate Sodium (Docusate Sodium 100 Mg Capsule) 100 mg PO BID PRN PRN Reason: Constipation Enoxaparin Sodium (Enoxaparin Sodium 40 Mg/0.4 Ml Syringe) 40 mg SUBCUT Q24H [facility] Last Admin: 05/26/23 20:12 Dose: 40 mg Documented By: RAZIA Fluticasone/Umeclidinium/Vilanterol (Fluticasone/Umeclidinium/Vilanterol 200/62.5/25 Blst.W.Dev) 1 puff INHALE RDAILY [facility] Last Admin: 05/27/23 08:11 Dose: 1 puff Documented By: JASON Folic Acid (Folic Acid 1 Mg Tablet) 1 mg PO DAILY [facility] Last Admin: 05/27/23 10:33 Dose: 1 mg Documented By: ELAINE Furosemide (Furosemide 40 Mg Tablet) 40 mg PO DAILY [facility]; Protocol Last Admin: 05/27/23 10:34 Dose: 40 mg Documented By: ELAINE Gabapentin (Gabapentin 100 Mg Capsule) 200 mg PO BID [facility] Last Admin: 05/05/23 09:49 Dose: 200 mg Documented By: LEANN Glucose (Glucose Gel 15 Gm Gel..Gram.) 15 gm PO Q15M PRN; Protocol PRN Reason: per Hypoglycemia Standing Ord. Dextrose (D10) 250 mls @ 750 mls/hr IV Q15M PRN PRN Reason: per Hypoglycemia Standing Ord. Insulin Human Lispro (Insulin Lispro 100 Unit/Ml 3 Ml Vial) 0 unit SUBCUT QIDACHS [facility]; Protocol Last Admin: 05/27/23 12:03 Dose: 2 unit Documented By: ELAINE Lactic Acid (Ammonium Lactate 12 % Lotion 226 Gm Bottle) 1 appl TOPICAL BID [facility]; Protocol Last Admin: 05/27/23 10:35 Dose: Not Given Documented By: ELAINE Non-Admin Reason: Patient Refused Lactulose (Lactulose 20 Gm/30 Ml Solution) 10 gm PO DAILY PRN PRN Reason: Constipation Loratadine (Loratadine 10 Mg Tablet) 10 mg PO DAILY PRN PRN Reason: Itching Last Admin: 05/24/23 17:41 Dose: 10 mg Documented By: RYLEE Melatonin (Melatonin 3 Mg Tablet) 6 mg PO BEDTIME PRN PRN Reason: Insomnia Last Admin: 05/05/23 20:54 Dose: 6 mg Documented By: KRYSTLE Metformin HCl (Metformin Hcl Er 500 Mg Tab.Er.24h) 500 mg PO DAILY@1800 [facility] Last Admin: 05/26/23 18:27 Dose: 500 mg Documented By: RAZIA Omeprazole (Omeprazole 20 Mg Capsule.Dr) 20 mg PO DAILY@0630 [facility] Last Admin: 05/27/23 06:08 Dose: 20 mg Documented By: JYOTI Ondansetron HCl (Ondansetron Hcl 4 Mg/2 Ml Vial) 4 mg IVPUSH Q8H PRN PRN Reason: Nausea and Vomiting Last Admin: 04/05/23 12:43 Dose: 4 mg Documented By: FERMIN Polyethylene Glycol (Polyethylene Glycol 3350 17 Gm Powd.Pack) 17 gm PO DAILY PRN PRN Reason: Constipation Quetiapine Fumarate (Quetiapine Fumarate 50 Mg Tablet) 50 mg PO Q8H PRN PRN Reason: anxiety/restlessness Quetiapine Fumarate (Quetiapine Fumarate 25 Mg Tablet) 25 mg PO TID [facility] Last Admin: 05/27/23 10:34 Dose: 25 mg Documented By: ELAINE Senna (Sennosides 8.6 Mg Tablet) 17.2 mg PO BEDTIME [facility] Last Admin: 05/26/23 20:13 Dose: 17.2 mg Documented By: RAZIA Sertraline HCl (Sertraline Hcl 100 Mg Tablet) 100 mg PO DAILY [facility] Last Admin: 05/27/23 10:33 Dose: 100 mg Documented By: ELAINE Sodium Chloride (0.9 % Sodium Chloride Flush 3 Ml Syringe) 3 ml IVFLUSH QSHIFT [facility] Last Admin: 05/27/23 10:35 Dose: Not Given Documented By: ELAINE Non-Admin Reason: No Access Trazodone HCl (Trazodone Hcl 50 Mg Tablet) 50 mg PO BEDTIME PRN PRN Reason: insomnia Last Admin: 05/13/23 20:46 Dose: 50 mg Documented By: BINH Labs 05/25/23 05:16 05/25/23 05:16 Labs: Laboratory Results - last 24 hr 05/26/23 05/26/23 05/27/23 15:57 19:37 07:35 POC Glucose 120 H 117 H 107 05/27/23 11:22 POC Glucose 169 H Assessment and Plan (1) Major neurocognitive disorder: Status: Acute Plan 72M PMH significant for?CAD, dxy-sbymkrn-uidminldn diabetes type 2, who initially presented to the ED on 03/15/2023 from SNF after reportedly having hallucinations and being combative with staff. Pt was placed in physician observation in the ED until he became hypoxic and tested positive for COVID admitted to the medical floor for treatment and further evaluation of acute hypoxic respiratory failure in the setting of COVID infection and new awaiting Placement Toxic metabolic encephalopathy, Likely related to medications, change in scenery, resolved work up included head CT, CBC, BMP, UA all have been negative. Concern for oversdation with meds, Lowered Seroquel to 25 mg tid with good response PRN Seroquel if needed (did not have to use since 05/04) Psych input appreciated back lower Lumbar abcess s/p I and D, culture did not grow anything. Has completed course of Augmentin local wound care, no packing , foam dressing and change every other day Acute hypoxic respiratory failure in the setting COVID 19 infection, resolved Finished course of dexamethasone and remdesivir baseline home oxygen 2 L Left mid back discomfort lipoma, no acute intervention. HTN Stable BP continue coreg and lasix morbid obesity weight loss advised Oaw-pejwhzl-uxyfskjnl type 2 diabetes acceptable control on current therapies continue metformin lispro correctional scale adjust as needed Full Code Lovenox Unable to find accepting SNF. plan will be to go home with services. requires continued hospital stay for safe disposition pending Bariatric equipments delivery and safe discharge plan . Quality Stroke Does the patient have a stroke diagnosis?: No VTE Prior VTE?: No VTE Risk Level:: Medical - moderate - high VTE Device Contraindication: Treatment Not Indicated VTE Drug Contraindication: N/A - Med Ordered
[2023-05-27 15:02] VITALS: BP 122/63; PULSE 60; RESP 20; TEMP 36.3; O2SAT 95
[2023-05-27 16:28] LABS: Glucose, Whole Blood 103 mg/dL (60-115)
[2023-05-27] MEDS: metFORMIN HCl ER 500 MG TAB.ER.24H PO (17:32)
--- NOTE | 2023-05-27 19:37 | PC.NURSE ---
Patient picks at his scabs on bilateral lower arms,some of scabs found bleeding,areas cleansed and clean drsgs applied for protections,VMT notified to monitor patient closely.
[2023-05-27 20:00] VITALS: BP 128/61; PULSE 69; RESP 20; TEMP 36.1; O2SAT 94
[2023-05-27 20:35] LABS: Glucose, Whole Blood 144 mg/dL (60-115)
[2023-05-27] MEDS: Enoxaparin Sodium 40 MG/0.4 ML SYRINGE SUBCUT (20:59)
[2023-05-27] MEDS: Atorvastatin Calcium 40 MG TABLET PO (21:00)
[2023-05-27] MEDS: Sennosides 8.6 MG TABLET 17.2 MG PO (21:00)
[2023-05-28 04:00] VITALS: BP 118/56; PULSE 78; RESP 16; TEMP 36.1; O2SAT 93
[2023-05-28] MEDS: Loratadine 10 MG TABLET PO (05:10)
[2023-05-28] MEDS: Omeprazole 20 MG CAPSULE.DR PO (05:10)
[2023-05-28 07:22] LABS: Glucose, Whole Blood 106 mg/dL (60-115)
[2023-05-28] MEDS: Fluticasone/Umeclidinium/Vilanterol 200/62.5/25 BLST.W.DEV 1 PUFF INHALE (07:30)
[2023-05-28 07:32] VITALS: PULSE 82; RESP 16; O2SAT 93
[2023-05-28 07:40] VITALS: BP 130/60; PULSE 70; RESP 14; TEMP 36.1; O2SAT 92
[2023-05-28] MEDS: Clopidogrel Bisulfate 75 MG TABLET PO (08:56)
[2023-05-28] MEDS: QUEtiapine Fumarate 25 MG TABLET PO ×3 (08:56→21:00)
[2023-05-28] MEDS: carvediloL 3.125 MG TABLET PO ×2 (08:56→21:02)
[2023-05-28] MEDS: Aspirin Enteric Coated 81 MG TABLET.DR PO (08:57)
[2023-05-28] MEDS: Sertraline HCL 100 MG TABLET PO (08:57)
[2023-05-28] MEDS: Furosemide 40 MG TABLET PO (08:57)
[2023-05-28] MEDS: Folic Acid 1 MG TABLET PO (08:57)
[2023-05-28] MEDS: Ammonium Lactate 12 % Lotion 226 GM BOTTLE 1 APPL TOPICAL ×2 (08:58→21:09)
[2023-05-28 09:04] LABS: Creatinine Clr Calc Pharmacy 83.8; Estimated Glomerular Filt Rate 60
--- NOTE | 2023-05-28 09:50 | HO.PM.IMPN ---
Subjective Subjective Date of Service: 05/28/23 Interval History: Being followed for placement Offers no acute complaints, tolerating diet with no nausea, no vomiting, no diarrhea No acute events overnight. Review of Systems All other system reviewed and are negative Physical Exam Vital Signs: Vital Signs: Last Vital Signs Temp 97.0 F 05/28/23 07:40 Pulse 70 05/28/23 07:40 Resp 14 05/28/23 07:40 BP 130/60 05/28/23 07:40 Pulse Ox 92 05/28/23 07:40 O2 Del Method Room Air 05/28/23 07:40 O2 Flow Rate 2 05/28/23 04:00 Oxygen Flow Rate 3 03/15/23 18:32 BMI result Body Mass Index 44.3 Const: Other: Constitutional : alert, interactive, not in distress, legally blind Neck : Normal inspection, Supple, no JVD Cardiovascular : RRR, Respiratory : Clear to auscultation, no crackles, wheezes or rhonchi Gastrointestinal: soft, Normal bowel sounds, Non tender Skin : Warm, Dry Neurological : Alert , oriented x3, moving all extremities Objective Data Active Medications Acetaminophen (Acetaminophen 325 Mg Tablet) 975 mg PO TID [facility] Last Admin: 05/28/23 08:57 Dose: Not Given Documented By: ELAINE Non-Admin Reason: exceeds daily recommended amt of tylenol Al Hydroxide/Mg Hydroxide (Magnesium Hydrox/Alum Hydrox 30 Ml Oral.Susp) 30 ml PO Q6H PRN PRN Reason: dyspepsia Albuterol Sulfate (Albuterol Sulfate 90 Mcg 8 Gm Inhaler) 2 puff INHALE Q4H PRN PRN Reason: Wheezing Aspirin (Aspirin Enteric Coated 81 Mg Tablet.) 81 mg PO DAILY [facility] Last Admin: 05/28/23 08:57 Dose: 81 mg Documented By: ELAINE Atorvastatin Calcium (Atorvastatin Calcium 40 Mg Tablet) 40 mg PO BEDTIME [facility] Last Admin: 05/27/23 21:00 Dose: 40 mg Documented By: RAZIA Carvedilol (Carvedilol 3.125 Mg Tablet) 3.125 mg PO BID [facility]; Protocol Last Admin: 05/28/23 08:56 Dose: 3.125 mg Documented By: ELAINE Clopidogrel Bisulfate (Clopidogrel Bisulfate 75 Mg Tablet) 75 mg PO DAILY [facility] Last Admin: 05/28/23 08:56 Dose: 75 mg Documented By: ELAINE Cyanocobalamin (Cyanocobalamin (Vitamin B-12) 1,000 Mcg/Ml Vial) 1,000 mcg IM Q30D [facility] Last Admin: 05/08/23 09:05 Dose: Not Given Documented By: ALEXA Non-Admin Reason: Patient Refused Docusate Sodium (Docusate Sodium 100 Mg Capsule) 100 mg PO BID PRN PRN Reason: Constipation Enoxaparin Sodium (Enoxaparin Sodium 40 Mg/0.4 Ml Syringe) 40 mg SUBCUT Q24H [facility] Last Admin: 05/27/23 20:59 Dose: 40 mg Documented By: RAZIA Fluticasone/Umeclidinium/Vilanterol (Fluticasone/Umeclidinium/Vilanterol 200/62.5/25 Blst.W.Dev) 1 puff INHALE RDAILY [facility] Last Admin: 05/28/23 07:30 Dose: 1 puff Documented By: RESHMA Folic Acid (Folic Acid 1 Mg Tablet) 1 mg PO DAILY [facility] Last Admin: 05/28/23 08:57 Dose: 1 mg Documented By: ELAINE Furosemide (Furosemide 40 Mg Tablet) 40 mg PO DAILY [facility]; Protocol Last Admin: 05/28/23 08:57 Dose: 40 mg Documented By: ELAINE Gabapentin (Gabapentin 100 Mg Capsule) 200 mg PO BID [facility] Last Admin: 05/05/23 09:49 Dose: 200 mg Documented By: LEANN Glucose (Glucose Gel 15 Gm Gel..Gram.) 15 gm PO Q15M PRN; Protocol PRN Reason: per Hypoglycemia Standing Ord. Dextrose (D10) 250 mls @ 750 mls/hr IV Q15M PRN PRN Reason: per Hypoglycemia Standing Ord. Lactic Acid (Ammonium Lactate 12 % Lotion 226 Gm Bottle) 1 appl TOPICAL BID [facility]; Protocol Last Admin: 05/28/23 08:58 Dose: 1 appl Documented By: ELAINE Lactulose (Lactulose 20 Gm/30 Ml Solution) 10 gm PO DAILY PRN PRN Reason: Constipation Loratadine (Loratadine 10 Mg Tablet) 10 mg PO DAILY PRN PRN Reason: Itching Last Admin: 05/28/23 05:10 Dose: 10 mg Documented By: LUCAS Melatonin (Melatonin 3 Mg Tablet) 6 mg PO BEDTIME PRN PRN Reason: Insomnia Last Admin: 05/05/23 20:54 Dose: 6 mg Documented By: KRYSTLE Metformin HCl (Metformin Hcl Er 500 Mg Tab.Er.24h) 500 mg PO DAILY@1800 [facility] Last Admin: 05/27/23 17:32 Dose: 500 mg Documented By: RAZIA Omeprazole (Omeprazole 20 Mg Capsule.Dr) 20 mg PO DAILY@0630 [facility] Last Admin: 05/28/23 05:10 Dose: 20 mg Documented By: LUCAS Ondansetron HCl (Ondansetron Hcl 4 Mg/2 Ml Vial) 4 mg IVPUSH Q8H PRN PRN Reason: Nausea and Vomiting Last Admin: 04/05/23 12:43 Dose: 4 mg Documented By: FERMIN Polyethylene Glycol (Polyethylene Glycol 3350 17 Gm Powd.Pack) 17 gm PO DAILY PRN PRN Reason: Constipation Quetiapine Fumarate (Quetiapine Fumarate 50 Mg Tablet) 50 mg PO Q8H PRN PRN Reason: anxiety/restlessness Quetiapine Fumarate (Quetiapine Fumarate 25 Mg Tablet) 25 mg PO TID [facility] Last Admin: 05/28/23 08:56 Dose: 25 mg Documented By: ELAINE Senna (Sennosides 8.6 Mg Tablet) 17.2 mg PO BEDTIME [facility] Last Admin: 05/27/23 21:00 Dose: 17.2 mg Documented By: RAZIA Sertraline HCl (Sertraline Hcl 100 Mg Tablet) 100 mg PO DAILY [facility] Last Admin: 05/28/23 08:57 Dose: 100 mg Documented By: ELAINE Sodium Chloride (0.9 % Sodium Chloride Flush 3 Ml Syringe) 3 ml IVFLUSH QSHIFT [facility] Last Admin: 05/28/23 08:59 Dose: Not Given Documented By: ELAINE Non-Admin Reason: No Access Trazodone HCl (Trazodone Hcl 50 Mg Tablet) 50 mg PO BEDTIME PRN PRN Reason: insomnia Last Admin: 05/13/23 20:46 Dose: 50 mg Documented By: BINH Labs 05/25/23 05:16 05/28/23 07:43 Labs: Laboratory Results - last 24 hr 05/27/23 05/27/23 05/27/23 11:22 16:15 20:27 Estim Creat Clear Calc Estimated GFR POC Glucose 169 H 103 144 H 05/28/23 05/28/23 07:11 07:43 Estim Creat Clear Calc 83.8 Estimated GFR 60 POC Glucose 106 Assessment and Plan (1) Major neurocognitive disorder: Status: Acute Plan 72M PMH significant for?CAD, mqa-wyniskm-jzfwluruc diabetes type 2, who initially presented to the ED on 03/15/2023 from SNF after reportedly having hallucinations and being combative with staff. Pt was placed in physician observation in the ED until he became hypoxic and tested positive for COVID admitted to the medical floor for treatment and further evaluation of acute hypoxic respiratory failure in the setting of COVID infection and new awaiting Placement Toxic metabolic encephalopathy, Likely related to medications, change in scenery, resolved work up included head CT, CBC, BMP, UA all have been negative. Concern for oversdation with meds, Lowered Seroquel to 25 mg tid with good response PRN Seroquel if needed (did not have to use since 05/04) Psych input appreciated back lower Lumbar abcess s/p I and D, culture did not grow anything. Has completed course of Augmentin local wound care, no packing , foam dressing and change every other day Acute hypoxic respiratory failure in the setting COVID 19 infection, resolved Finished course of dexamethasone and remdesivir baseline home oxygen 2 L Left mid back discomfort lipoma, no acute intervention. HTN Stable BP continue coreg and lasix morbid obesity weight loss advised Gix-zcshqdy-ssycmmicr type 2 diabetes Blood sugars stable, continue metformin, will DC lispro correction scale, check blood sugars at a.m. Full Code Lovenox Unable to find accepting SNF. plan will be to go home with services. requires continued hospital stay for safe disposition pending Bariatric equipments delivery and safe discharge plan . Quality Stroke Does the patient have a stroke diagnosis?: No VTE Prior VTE?: No VTE Risk Level:: Medical - moderate - high VTE Device Contraindication: Treatment Not Indicated VTE Drug Contraindication: N/A - Med Ordered
[2023-05-28 11:00] LABS: Glucose, Whole Blood 142 mg/dL (60-115)
--- NOTE | 2023-05-28 11:03 | MHC.CM.PN ---
PT AWAITING AUTH FOR DME SO THAT HE CAN DC HOME [facility] JASPREET SPOKE TO [facility] LIAISON TODAY, SHE INDICATED SHE HAS BEEN CALLING THE DME COMPANY, [employer], MULTIPLE TIMES PER DAY. SHE SAYS SHE SPOKE TO THE WOMAN THIS MORNING AND WAS PROMISED SHE WOULD HAVE THE DOCUMENTS SHE NEEDED BY THE END OF TODAY SHE WILL UPDATE JASPREET APPROPRIATE
[2023-05-28 15:34] VITALS: BP 107/60; PULSE 59; RESP 16; TEMP 36.5; O2SAT 93
--- NOTE | 2023-05-28 15:59 | MHC.CM.PN ---
pt is ready for dc home still waiting on dme florencia /cca is working om coordiantion of same
[2023-05-28 16:42] LABS: Glucose, Whole Blood 140 mg/dL (60-115)
[2023-05-28] MEDS: metFORMIN HCl ER 500 MG TAB.ER.24H PO (18:24)
[2023-05-28 19:31] VITALS: BP 148/75; PULSE 79; RESP 16; TEMP 36.4; O2SAT 94
[2023-05-28 19:59] LABS: Glucose, Whole Blood 129 mg/dL (60-115)
[2023-05-28] MEDS: Acetaminophen 325 MG TABLET 975 MG PO (21:01)
[2023-05-28] MEDS: Sennosides 8.6 MG TABLET 17.2 MG PO (21:01)
[2023-05-28] MEDS: Atorvastatin Calcium 40 MG TABLET PO (21:01)
[2023-05-29 03:43] VITALS: BP 108/51; PULSE 61; RESP 18; TEMP 36.1; O2SAT 94
[2023-05-29] MEDS: Omeprazole 20 MG CAPSULE.DR PO (05:44)
[2023-05-29 07:24] LABS: Glucose, Whole Blood 109 mg/dL (60-115)
[2023-05-29 07:25] VITALS: BP 137/63; PULSE 68; RESP 20; TEMP 36.4; O2SAT 95
[2023-05-29 07:54] VITALS: PULSE 68; RESP 20; O2SAT 94
[2023-05-29] MEDS: Fluticasone/Umeclidinium/Vilanterol 200/62.5/25 BLST.W.DEV 1 PUFF INHALE (07:54)
[2023-05-29] MEDS: Ammonium Lactate 12 % Lotion 226 GM BOTTLE 1 APPL TOPICAL ×2 (08:45→21:10)
[2023-05-29] MEDS: Aspirin Enteric Coated 81 MG TABLET.DR PO (08:45)
[2023-05-29] MEDS: Furosemide 40 MG TABLET PO (08:45)
[2023-05-29] MEDS: Sertraline HCL 100 MG TABLET PO (08:45)
[2023-05-29] MEDS: Folic Acid 1 MG TABLET PO (08:46)
[2023-05-29] MEDS: Acetaminophen 325 MG TABLET 975 MG PO ×3 (08:46→21:00)
[2023-05-29] MEDS: carvediloL 3.125 MG TABLET PO ×2 (08:46→20:59)
[2023-05-29] MEDS: QUEtiapine Fumarate 25 MG TABLET PO ×3 (08:46→21:00)
[2023-05-29] MEDS: Clopidogrel Bisulfate 75 MG TABLET PO (08:46)
--- NOTE | 2023-05-29 10:18 | P.PNIM_ITS ---
Subjective Subjective Date of Service: 05/29/23 Interval History: Being followed for placement Offers no acute complain wishes to be discharged home, no fevers no chills, tolerating diet. Review of Systems All other system reviewed and negative. Physical Exam 2 Vital Signs: Vital Signs: Last Vital Signs Temp 97.6 F 05/29/23 07:25 Pulse 68 05/29/23 07:54 Resp 20 05/29/23 07:54 BP 137/63 05/29/23 07:25 Pulse Ox 95 05/29/23 07:25 O2 Del Method Nasal Cannula 05/29/23 07:25 O2 Flow Rate 2 05/29/23 07:25 Oxygen Flow Rate 3 03/15/23 18:32 BMI result Body Mass Index 44.3 Const: Other: Constitutional : alert, interactive, not in distress, legally blind Neck : Normal inspection, Supple, no JVD Cardiovascular : RRR, Respiratory : Clear to auscultation, no crackles, wheezes or rhonchi Gastrointestinal: soft, Normal bowel sounds, Non tender Skin : Warm, Dry Neurological : Alert , oriented x3, moving all extremities Objective Data Active Medications Acetaminophen (Acetaminophen 325 Mg Tablet) 975 mg PO TID [facility] Last Admin: 05/29/23 08:46 Dose: 975 mg Documented By: CAT Al Hydroxide/Mg Hydroxide (Magnesium Hydrox/Alum Hydrox 30 Ml Oral.Susp) 30 ml PO Q6H PRN PRN Reason: dyspepsia Albuterol Sulfate (Albuterol Sulfate 90 Mcg 8 Gm Inhaler) 2 puff INHALE Q4H PRN PRN Reason: Wheezing Aspirin (Aspirin Enteric Coated 81 Mg Tablet.) 81 mg PO DAILY [facility] Last Admin: 05/29/23 08:45 Dose: 81 mg Documented By: CAT Atorvastatin Calcium (Atorvastatin Calcium 40 Mg Tablet) 40 mg PO BEDTIME [facility] Last Admin: 05/28/23 21:01 Dose: 40 mg Documented By: NICOLAS Carvedilol (Carvedilol 3.125 Mg Tablet) 3.125 mg PO BID [facility]; Protocol Last Admin: 05/29/23 08:46 Dose: 3.125 mg Documented By: CAT Clopidogrel Bisulfate (Clopidogrel Bisulfate 75 Mg Tablet) 75 mg PO DAILY [facility] Last Admin: 04/13/24 08:46 Dose: 75 mg Documented By: CAT Cyanocobalamin (Cyanocobalamin (Vitamin B-12) 1,000 Mcg/Ml Vial) 1,000 mcg IM Q30D [facility] Last Admin: 05/08/23 09:05 Dose: Not Given Documented By: ALEXA Non-Admin Reason: Patient Refused Docusate Sodium (Docusate Sodium 100 Mg Capsule) 100 mg PO BID PRN PRN Reason: Constipation Enoxaparin Sodium (Enoxaparin Sodium 40 Mg/0.4 Ml Syringe) 40 mg SUBCUT Q24H [facility] Last Admin: 05/28/23 21:03 Dose: Not Given Documented By: NICOLAS Non-Admin Reason: Patient Refused Fluticasone/Umeclidinium/Vilanterol (Fluticasone/Umeclidinium/Vilanterol 200/62.5/25 Blst.W.Dev) 1 puff INHALE RDAILY [facility] Last Admin: 05/29/23 07:54 Dose: 1 puff Documented By: JASSI Folic Acid (Folic Acid 1 Mg Tablet) 1 mg PO DAILY [facility] Last Admin: 05/29/23 08:46 Dose: 1 mg Documented By: CAT Furosemide (Furosemide 40 Mg Tablet) 40 mg PO DAILY [facility]; Protocol Last Admin: 05/29/23 08:45 Dose: 40 mg Documented By: CAT Gabapentin (Gabapentin 100 Mg Capsule) 200 mg PO BID [facility] Last Admin: 05/05/23 09:49 Dose: 200 mg Documented By: LEANN Glucose (Glucose Gel 15 Gm Gel..Gram.) 15 gm PO Q15M PRN; Protocol PRN Reason: per Hypoglycemia Standing Ord. Dextrose (D10) 250 mls @ 750 mls/hr IV Q15M PRN PRN Reason: per Hypoglycemia Standing Ord. Lactic Acid (Ammonium Lactate 12 % Lotion 226 Gm Bottle) 1 appl TOPICAL BID [facility]; Protocol Last Admin: 05/29/23 08:45 Dose: 1 appl Documented By: CAT Lactulose (Lactulose 20 Gm/30 Ml Solution) 10 gm PO DAILY PRN PRN Reason: Constipation Loratadine (Loratadine 10 Mg Tablet) 10 mg PO DAILY PRN PRN Reason: Itching Last Admin: 05/28/23 05:10 Dose: 10 mg Documented By: ANTOIC Melatonin (Melatonin 3 Mg Tablet) 6 mg PO BEDTIME PRN PRN Reason: Insomnia Last Admin: 05/05/23 20:54 Dose: 6 mg Documented By: KRYSTLE Metformin HCl (Metformin Hcl Er 500 Mg Tab.Er.24h) 500 mg PO DAILY@1800 [facility] Last Admin: 05/28/23 18:24 Dose: 500 mg Documented By: KENNEDI Omeprazole (Omeprazole 20 Mg Capsule.Dr) 20 mg PO DAILY@0630 [facility] Last Admin: 05/29/23 05:44 Dose: 20 mg Documented By: NICOLAS Ondansetron HCl (Ondansetron Hcl 4 Mg/2 Ml Vial) 4 mg IVPUSH Q8H PRN PRN Reason: Nausea and Vomiting Last Admin: 04/05/23 12:43 Dose: 4 mg Documented By: FERMIN Polyethylene Glycol (Polyethylene Glycol 3350 17 Gm Powd.Pack) 17 gm PO DAILY PRN PRN Reason: Constipation Quetiapine Fumarate (Quetiapine Fumarate 50 Mg Tablet) 50 mg PO Q8H PRN PRN Reason: anxiety/restlessness Quetiapine Fumarate (Quetiapine Fumarate 25 Mg Tablet) 25 mg PO TID [facility] Last Admin: 05/29/23 08:46 Dose: 25 mg Documented By: CAT Senna (Sennosides 8.6 Mg Tablet) 17.2 mg PO BEDTIME [facility] Last Admin: 05/28/23 21:01 Dose: 17.2 mg Documented By: NICOLAS Sertraline HCl (Sertraline Hcl 100 Mg Tablet) 100 mg PO DAILY [facility] Last Admin: 05/29/23 08:45 Dose: 100 mg Documented By: CAT Sodium Chloride (0.9 % Sodium Chloride Flush 3 Ml Syringe) 3 ml IVFLUSH QSHIFT [facility] Last Admin: 05/29/23 08:08 Dose: Not Given Documented By: CAT Non-Admin Reason: No Access Trazodone HCl (Trazodone Hcl 50 Mg Tablet) 50 mg PO BEDTIME PRN PRN Reason: insomnia Last Admin: 05/13/23 20:46 Dose: 50 mg Documented By: BINH Labs 05/25/23 05:16 05/28/23 07:43 Labs: Laboratory Results - last 24 hr 05/28/23 05/28/23 05/28/23 10:57 16:35 19:34 POC Glucose 142 H 140 H 129 H 05/29/23 07:21 POC Glucose 109 Assessment and Plan (1) Major neurocognitive disorder: Status: Acute Plan 72M PMH significant for?CAD, [id number]-tayoygrqe diabetes type 2, who initially presented to the ED on 03/15/2023 from SNF after reportedly having hallucinations and being combative with staff. Pt was placed in physician observation in the ED until he became hypoxic and tested positive for COVID admitted to the medical floor for treatment and further evaluation of acute hypoxic respiratory failure in the setting of COVID infection and new awaiting Placement Toxic metabolic encephalopathy, Likely related to medications, change in scenery, resolved work up included head CT, CBC, BMP, UA all have been negative. Concern for oversdation with meds, Lowered Seroquel to 25 mg tid with good response PRN Seroquel if needed (did not have to use since 05/04) Psych input appreciated back lower Lumbar abcess s/p I and D, culture did not grow anything. Has completed course of Augmentin local wound care, no packing , foam dressing and change every other day Acute hypoxic respiratory failure in the setting COVID 19 infection, resolved Finished course of dexamethasone and remdesivir baseline home oxygen 2 L Left mid back discomfort lipoma, no acute intervention. HTN Stable BP continue coreg and lasix morbid obesity weight loss advised Stv-svmxfdg-ijtjgvusi type 2 diabetes Blood sugars stable, continue metformin, check blood sugars at a.m., insulin sliding scale discontinued on 05/27. Full Code Lovenox Unable to find accepting SNF. plan will be to go home with services. requires continued hospital stay for safe disposition pending Bariatric equipments delivery and safe discharge plan . Quality Stroke Does the patient have a stroke diagnosis?: No VTE Prior VTE?: No VTE Risk Level:: Medical - moderate - high VTE Device Contraindication: Treatment Not Indicated VTE Drug Contraindication: N/A - Med Ordered
[2023-05-29 11:15] LABS: Glucose, Whole Blood 137 mg/dL (60-115)
[2023-05-29 16:00] VITALS: BP 140/65; PULSE 58; RESP 20; TEMP 36.4; O2SAT 98
[2023-05-29] MEDS: metFORMIN HCl ER 500 MG TAB.ER.24H PO (17:25)
[2023-05-29 19:19] VITALS: BP 124/63; PULSE 58; RESP 20; TEMP 36.4; O2SAT 97
[2023-05-29] MEDS: Sennosides 8.6 MG TABLET 17.2 MG PO (20:59)
[2023-05-29] MEDS: Enoxaparin Sodium 40 MG/0.4 ML SYRINGE SUBCUT (20:59)
[2023-05-29] MEDS: Atorvastatin Calcium 40 MG TABLET PO (20:59)
[2023-05-30 03:19] VITALS: BP 128/58; PULSE 65; RESP 18; TEMP 36.3; O2SAT 96
[2023-05-30] MEDS: Omeprazole 20 MG CAPSULE.DR PO (05:49)
[2023-05-30 07:22] LABS: Glucose, Whole Blood 73 mg/dL (60-115)
[2023-05-30 07:26] VITALS: BP 117/56; PULSE 63; RESP 20; TEMP 36.4; O2SAT 95
[2023-05-30] MEDS: Sertraline HCL 100 MG TABLET PO (09:20)
[2023-05-30] MEDS: Aspirin Enteric Coated 81 MG TABLET.DR PO (09:20)
[2023-05-30] MEDS: Clopidogrel Bisulfate 75 MG TABLET PO (09:20)
[2023-05-30] MEDS: carvediloL 3.125 MG TABLET PO ×2 (09:20→21:02)
[2023-05-30] MEDS: Folic Acid 1 MG TABLET PO (09:20)
[2023-05-30] MEDS: Furosemide 40 MG TABLET PO (09:21)
[2023-05-30] MEDS: Ammonium Lactate 12 % Lotion 226 GM BOTTLE 1 APPL TOPICAL ×2 (09:22→21:03)
--- NOTE | 2023-05-30 09:50 | P.PNIM_ITS ---
Subjective Subjective Date of Service: 05/30/23 Interval History: Resting in bed, offers no acute complaints but noted to be more tired and sleepy this morning then baseline, denies headache, no dizziness, denies shortness of breath, no chest pain, no abdominal pain, no nausea, no vomiting, no diarrhea, no urinary symptoms, no acute issues overnight blood sugars stable. Review of Systems All other system reviewed and negative Physical Exam 2 Vital Signs: Vital Signs: Last Vital Signs Temp 97.6 F 05/30/23 07:26 Pulse 63 05/30/23 07:26 Resp 20 05/30/23 07:26 BP 117/56 L 05/30/23 07:26 Pulse Ox 95 05/30/23 07:26 O2 Del Method Nasal Cannula 05/30/23 07:26 O2 Flow Rate 2 05/30/23 07:26 Oxygen Flow Rate 3 03/15/23 18:32 BMI result Body Mass Index 44.3 Const: Other: Constitutional : Sleepy easily arousable, not in distress, legally blind Neck : Normal inspection, Supple, no JVD Cardiovascular : RRR, Respiratory : Clear to auscultation, no crackles, wheezes or rhonchi Gastrointestinal: soft, Normal bowel sounds, Non tender Skin : Warm, Dry Neurological : oriented x3, moving all extremities, speech clear Objective Data Active Medications Acetaminophen (Acetaminophen 325 Mg Tablet) 975 mg PO TID [facility] Last Admin: 05/30/23 09:23 Dose: Not Given Documented By: CAT Non-Admin Reason: Patient Refused Al Hydroxide/Mg Hydroxide (Magnesium Hydrox/Alum Hydrox 30 Ml Oral.Susp) 30 ml PO Q6H PRN PRN Reason: dyspepsia Albuterol Sulfate (Albuterol Sulfate 90 Mcg 8 Gm Inhaler) 2 puff INHALE Q4H PRN PRN Reason: Wheezing Aspirin (Aspirin Enteric Coated 81 Mg Tablet.) 81 mg PO DAILY [facility] Last Admin: 05/30/23 09:20 Dose: 81 mg Documented By: CAT Atorvastatin Calcium (Atorvastatin Calcium 40 Mg Tablet) 40 mg PO BEDTIME [facility] Last Admin: 05/29/23 20:59 Dose: 40 mg Documented By: NICOLAS Carvedilol (Carvedilol 3.125 Mg Tablet) 3.125 mg PO BID [facility]; Protocol Last Admin: 05/30/23 09:20 Dose: 3.125 mg Documented By: CAT Clopidogrel Bisulfate (Clopidogrel Bisulfate 75 Mg Tablet) 75 mg PO DAILY [facility] Last Admin: 05/30/23 09:20 Dose: 75 mg Documented By: CAT Cyanocobalamin (Cyanocobalamin (Vitamin B-12) 1,000 Mcg/Ml Vial) 1,000 mcg IM Q30D [facility] Last Admin: 05/08/23 09:05 Dose: Not Given Documented By: ALEXA Non-Admin Reason: Patient Refused Docusate Sodium (Docusate Sodium 100 Mg Capsule) 100 mg PO BID PRN PRN Reason: Constipation Enoxaparin Sodium (Enoxaparin Sodium 40 Mg/0.4 Ml Syringe) 40 mg SUBCUT Q24H [facility] Last Admin: 05/29/23 20:59 Dose: 40 mg Documented By: NICOLAS Fluticasone/Umeclidinium/Vilanterol (Fluticasone/Umeclidinium/Vilanterol 200/62.5/25 Blst.W.Dev) 1 puff INHALE RDAILY [facility] Last Admin: 05/30/23 07:42 Dose: Not Given Documented By: JASSI Non-Admin Reason: Agitation Folic Acid (Folic Acid 1 Mg Tablet) 1 mg PO DAILY [facility] Last Admin: 05/30/23 09:20 Dose: 1 mg Documented By: CAT Furosemide (Furosemide 40 Mg Tablet) 40 mg PO DAILY [facility]; Protocol Last Admin: 05/30/23 09:21 Dose: 40 mg Documented By: CAT Gabapentin (Gabapentin 100 Mg Capsule) 200 mg PO BID [facility] Last Admin: 05/05/23 09:49 Dose: 200 mg Documented By: LEANN Glucose (Glucose Gel 15 Gm Gel..Gram.) 15 gm PO Q15M PRN; Protocol PRN Reason: per Hypoglycemia Standing Ord. Dextrose (D10) 250 mls @ 750 mls/hr IV Q15M PRN PRN Reason: per Hypoglycemia Standing Ord. Lactic Acid (Ammonium Lactate 12 % Lotion 226 Gm Bottle) 1 appl TOPICAL BID [facility]; Protocol Last Admin: 05/30/23 09:22 Dose: 1 appl Documented By: CAT Lactulose (Lactulose 20 Gm/30 Ml Solution) 10 gm PO DAILY PRN PRN Reason: Constipation Loratadine (Loratadine 10 Mg Tablet) 10 mg PO DAILY PRN PRN Reason: Itching Last Admin: 05/28/23 05:10 Dose: 10 mg Documented By: ANTOIC Melatonin (Melatonin 3 Mg Tablet) 6 mg PO BEDTIME PRN PRN Reason: Insomnia Last Admin: 05/05/23 20:54 Dose: 6 mg Documented By: KRYSTLE Metformin HCl (Metformin Hcl Er 500 Mg Tab.Er.24h) 500 mg PO DAILY@1800 [facility] Last Admin: 05/29/23 17:25 Dose: 500 mg Documented By: SHIV Omeprazole (Omeprazole 20 Mg Capsule.Dr) 20 mg PO DAILY@0630 [facility] Last Admin: 05/30/23 05:49 Dose: 20 mg Documented By: NICOLAS Ondansetron HCl (Ondansetron Hcl 4 Mg/2 Ml Vial) 4 mg IVPUSH Q8H PRN PRN Reason: Nausea and Vomiting Last Admin: 04/05/23 12:43 Dose: 4 mg Documented By: FERMIN Polyethylene Glycol (Polyethylene Glycol 3350 17 Gm Powd.Pack) 17 gm PO DAILY PRN PRN Reason: Constipation Quetiapine Fumarate (Quetiapine Fumarate 50 Mg Tablet) 50 mg PO Q8H PRN PRN Reason: anxiety/restlessness Quetiapine Fumarate (Quetiapine Fumarate 25 Mg Tablet) 25 mg PO TID [facility] Last Admin: 05/30/23 09:30 Dose: Not Given Documented By: CAT Non-Admin Reason: Physician Held Med Comments: Patient lethargic. Dr. Swartz held med. Senna (Sennosides 8.6 Mg Tablet) 17.2 mg PO BEDTIME [facility] Last Admin: 05/29/23 20:59 Dose: 17.2 mg Documented By: NICOLAS Sertraline HCl (Sertraline Hcl 100 Mg Tablet) 100 mg PO DAILY [facility] Last Admin: 05/30/23 09:20 Dose: 100 mg Documented By: CAT Trazodone HCl (Trazodone Hcl 50 Mg Tablet) 50 mg PO BEDTIME PRN PRN Reason: insomnia Last Admin: 05/13/23 20:46 Dose: 50 mg Documented By: BINH Labs 05/25/23 05:16 05/28/23 07:43 Labs: Laboratory Results - last 24 hr 05/29/23 05/30/23 11:11 07:11 POC Glucose 137 H 73 Assessment and Plan (1) Major neurocognitive disorder: Status: Acute Plan 72M PMH significant for?CAD, [id number]-[id number] diabetes type 2, who initially presented to the ED on 03/15/2023 from SNF after reportedly having hallucinations and being combative with staff. Pt was placed in physician observation in the ED until he became hypoxic and tested positive for COVID admitted to the medical floor for treatment and further evaluation of acute hypoxic respiratory failure in the setting of COVID infection and new awaiting Placement Toxic metabolic encephalopathy, Likely related to medications, change in scenery, resolved work up included head CT, CBC, BMP, UA all have been negative. Concern for oversdation with meds, Lowered Seroquel to 25 mg tid with good response Patient this morning appears more tired and sleepy, not confused, will decrease dose of PRN Seroquel to 25 mg if needed and check UA. back lower Lumbar abcess s/p I and D, culture did not grow anything. Has completed course of Augmentin local wound care, no packing , foam dressing and change every other day , no worsening wound, no drainage Acute hypoxic respiratory failure in the setting COVID 19 infection, resolved Finished course of dexamethasone and remdesivir baseline home oxygen 2 L Left mid back discomfort lipoma, no acute intervention. HTN Stable BP continue coreg and lasix morbid obesity weight loss advised Wyt-jvrfwvq-edxlryqhc type 2 diabetes Blood sugars stable, continue metformin, check blood sugars at a.m., insulin sliding scale discontinued on 05/27. Full Code Lovenox Unable to find accepting SNF. plan will be to go home with services. requires continued hospital stay for safe disposition pending Bariatric equipments delivery and safe discharge plan . Quality Stroke Does the patient have a stroke diagnosis?: No VTE Prior VTE?: No VTE Risk Level:: Medical - moderate - high VTE Device Contraindication: Treatment Not Indicated VTE Drug Contraindication: N/A - Med Ordered
[2023-05-30 10:53] LABS: Anion Gap 12 (12-20); Blood Urea Nitrogen 18 mg/dL (9-16); Calcium 9.1 mg/dL (8.4-10.2); Carbon Dioxide 29 mmol/L (22-29); Chloride 104 mmol/L (96-108); Creatinine Clr Calc Pharmacy 97.7; Estimated Glomerular Filt Rate > 60; Glucose Random 147 mg/dL (60-115); Hematocrit 36.5 % (42.0-52.0); Hemoglobin 12.1 g/dl (14.0-18.0); Mean Corpuscular HGB Conc 33.2 g/dl (31.0-36.0); Mean Corpuscular Hemoglobin 33.1 pg (27.0-33.0); Mean Corpuscular Volume 99.7 fL (80.0-98.0); Mean Platelet Volume 9.5 fL (9.4-12.4); Platelet Count 164 X10*3/uL (160-400); Potassium 3.9 mmol/L (3.3-5.1); Red Blood Count 3.66 X10*6/uL (4.60-5.80); Red Cell Distribution Width 14.1 % (11.0-16.0); Sodium 141 mmol/L (135-145); White Blood Count 6.9 X10*3/uL (4.8-10.8)
[2023-05-30 15:41] VITALS: BP 116/58; PULSE 58; RESP 20; TEMP 36.1; O2SAT 96
[2023-05-30 16:31] LABS: VBG Base Excess 8.4 mmol/L; VBG HCO3 34 mmol/L (22-26); VBG pCO2 53 mmHg; VBG pH 7.41 (7.32-7.43); VBG pO2 59 mmHg
[2023-05-30 17:20] LABS: Venous Blood Gas Refer to POC result
[2023-05-30] MEDS: metFORMIN HCl ER 500 MG TAB.ER.24H PO (17:46)
[2023-05-30 19:33] VITALS: BP 130/59; PULSE 67; RESP 20; TEMP 36.3; O2SAT 99
[2023-05-30 20:47] LABS: Appearance Urine Cloudy; Color Urine Yellow; Glucose Urine UA Negative (Negative); Leukocyte Esterase Urine Moderate (2+) (Negative); Nitrite Urine Positive (Negative); UMIC TRIGGER UACC YES; Urine Blood Negative (Negative); Urine Ketones Negative (Negative); Urine Protein 30 (1+) mg/dL (Neg-Trace)
[2023-05-30 20:52] LABS: Bacteria Urine 4+ (None Seen); RBC Urine 0-2 /HPF (0-2); Squamous Epithelial Cell Urine 0-2 /HPF (0-2); UACC Culture Trigger YES; WBC Urine >50 /HPF (0-5)
[2023-05-30] MEDS: QUEtiapine Fumarate 25 MG TABLET 12.5 MG PO (21:02)
[2023-05-30] MEDS: Atorvastatin Calcium 40 MG TABLET PO (21:02)
[2023-05-30] MEDS: Acetaminophen 325 MG TABLET 975 MG PO (21:02)
[2023-05-30] MEDS: Enoxaparin Sodium 40 MG/0.4 ML SYRINGE SUBCUT (21:02)
[2023-05-30] MEDS: Sennosides 8.6 MG TABLET 17.2 MG PO (21:07)
[2023-05-31 03:19] VITALS: BP 113/91; PULSE 60; RESP 19; TEMP 36.3; O2SAT 94
[2023-05-31] MEDS: Omeprazole 20 MG CAPSULE.DR PO (05:45)
[2023-05-31 07:17] LABS: Glucose, Whole Blood 118 mg/dL (60-115)
[2023-05-31 07:22] VITALS: BP 111/56; PULSE 58; RESP 20; TEMP 36.4; O2SAT 95
[2023-05-31] MEDS: Fluticasone/Umeclidinium/Vilanterol 200/62.5/25 BLST.W.DEV 1 PUFF INHALE (07:57)
[2023-05-31 08:00] VITALS: PULSE 59; RESP 18; O2SAT 96
[2023-05-31] MEDS: carvediloL 3.125 MG TABLET PO ×2 (08:50→19:53)
[2023-05-31] MEDS: Furosemide 40 MG TABLET PO (08:51)
[2023-05-31] MEDS: Sertraline HCL 100 MG TABLET PO (08:51)
[2023-05-31] MEDS: Ammonium Lactate 12 % Lotion 226 GM BOTTLE 1 APPL TOPICAL ×2 (08:51→19:55)
[2023-05-31] MEDS: QUEtiapine Fumarate 25 MG TABLET 12.5 MG PO ×3 (08:51→19:54)
[2023-05-31] MEDS: Folic Acid 1 MG TABLET PO (08:51)
[2023-05-31] MEDS: Aspirin Enteric Coated 81 MG TABLET.DR PO (08:51)
[2023-05-31] MEDS: Clopidogrel Bisulfate 75 MG TABLET PO (08:51)
--- NOTE | 2023-05-31 08:55 | MHC.CM.PN ---
Addendum entered by Anastasiia Anaya 05/31/23 15:32: CM RECEIVED A CALL FROM PTS WHO STATED SHE HAD THE MEASUREMENTS FOR THE DOORS AT HOME. SHE SAYS THE FRONT DOOR IS 3.5 FEET WIDE AND THE BEDROOM DOOR IS SLIGHTLY OVER 3 FT. CM CALLED HIRA AT [facility] TO RELAY MEASUREMENTS, SHE WILL SEND THEM TO [email or web address] Addendum entered by Anastasiia Anaya 05/31/23 12:22: LEFT FOR PTS DAUGHTER, CLARKE [phone], REQUESTING MEASUREMENTS AND A RETURN CALL Original Note: CMRECEIVED A CALL FROM HIRA AT [facility], SHE INDICATED SHE IS MAKING PROGRESS GETTING PTS DME APPROVED, BUT THEY HAVE ASKED THAT THE DOORWAYS IN PTS HOME BE MEASURED, SHE SAYS THIS IS A ALWAYS A REQUIREMENT OF THE DME COMPANY TO CONFIRM PTS EQUIPMENT CAN BE USED IN THE HOME CM WILL CALL PTS DAUGHTER TO REQUEST MEASUREMENTS
--- NOTE | 2023-05-31 10:10 | HO.PM.IMPN ---
Subjective Subjective Date of Service: 05/31/23 Interval History: Being followed for placement Offers no acute complaints, awake alert at his baseline, no acute events overnight. Review of Systems All other system reviewed and negative Physical Exam Vital Signs: Vital Signs: Last Vital Signs Temp 97.6 F 05/31/23 07:22 Pulse 59 05/31/23 08:00 Resp 18 05/31/23 08:00 BP 111/56 L 05/31/23 07:22 Pulse Ox 95 05/31/23 07:22 O2 Del Method Nasal Cannula 05/31/23 07:22 O2 Flow Rate 2 05/31/23 07:22 Oxygen Flow Rate 3 03/15/23 18:32 BMI result Body Mass Index 44.3 Const: Other: Constitutional : Awake alert at his baseline, not in distress, legally blind Neck : Normal inspection, Supple, no JVD Cardiovascular : RRR, Respiratory : Clear to auscultation, no crackles, wheezes or rhonchi Gastrointestinal: soft, Normal bowel sounds, Non tender Skin : Warm, Dry Neurological : oriented x3, moving all extremities, speech clear Objective Data Active Medications Acetaminophen (Acetaminophen 325 Mg Tablet) 975 mg PO TID [facility] Last Admin: 05/31/23 08:51 Dose: Not Given Documented By: ELAINE Non-Admin Reason: Patient Refused Al Hydroxide/Mg Hydroxide (Magnesium Hydrox/Alum Hydrox 30 Ml Oral.Susp) 30 ml PO Q6H PRN PRN Reason: dyspepsia Albuterol Sulfate (Albuterol Sulfate 90 Mcg 8 Gm Inhaler) 2 puff INHALE Q4H PRN PRN Reason: Wheezing Aspirin (Aspirin Enteric Coated 81 Mg Tablet.) 81 mg PO DAILY [facility] Last Admin: 05/31/23 08:51 Dose: 81 mg Documented By: ELAINE Atorvastatin Calcium (Atorvastatin Calcium 40 Mg Tablet) 40 mg PO BEDTIME [facility] Last Admin: 05/30/23 21:02 Dose: 40 mg Documented By: CAT Carvedilol (Carvedilol 3.125 Mg Tablet) 3.125 mg PO BID [facility]; Protocol Last Admin: 05/31/23 08:50 Dose: 3.125 mg Documented By: ELAINE Clopidogrel Bisulfate (Clopidogrel Bisulfate 75 Mg Tablet) 75 mg PO DAILY [facility] Last Admin: 05/31/23 08:51 Dose: 75 mg Documented By: ELAINE Cyanocobalamin (Cyanocobalamin (Vitamin B-12) 1,000 Mcg/Ml Vial) 1,000 mcg IM Q30D [facility] Last Admin: 05/08/23 09:05 Dose: Not Given Documented By: ALEXA Non-Admin Reason: Patient Refused Docusate Sodium (Docusate Sodium 100 Mg Capsule) 100 mg PO BID PRN PRN Reason: Constipation Enoxaparin Sodium (Enoxaparin Sodium 40 Mg/0.4 Ml Syringe) 40 mg SUBCUT Q24H [facility] Last Admin: 05/30/23 21:02 Dose: 40 mg Documented By: CAT Fluticasone/Umeclidinium/Vilanterol (Fluticasone/Umeclidinium/Vilanterol 200/62.5/25 Blst.W.Dev) 1 puff INHALE RDAILY [facility] Last Admin: 05/31/23 07:57 Dose: 1 puff Documented By: JASON Folic Acid (Folic Acid 1 Mg Tablet) 1 mg PO DAILY [facility] Last Admin: 05/31/23 08:51 Dose: 1 mg Documented By: ELAINE Furosemide (Furosemide 40 Mg Tablet) 40 mg PO DAILY [facility]; Protocol Last Admin: 05/31/23 08:51 Dose: 40 mg Documented By: ELAINE Gabapentin (Gabapentin 100 Mg Capsule) 200 mg PO BID [facility] Last Admin: 05/05/23 09:49 Dose: 200 mg Documented By: LEANN Glucose (Glucose Gel 15 Gm Gel..Gram.) 15 gm PO Q15M PRN; Protocol PRN Reason: per Hypoglycemia Standing Ord. Dextrose (D10) 250 mls @ 750 mls/hr IV Q15M PRN PRN Reason: per Hypoglycemia Standing Ord. Lactic Acid (Ammonium Lactate 12 % Lotion 226 Gm Bottle) 1 appl TOPICAL BID [facility]; Protocol Last Admin: 05/31/23 08:51 Dose: 1 appl Documented By: ELAINE Lactulose (Lactulose 20 Gm/30 Ml Solution) 10 gm PO DAILY PRN PRN Reason: Constipation Loratadine (Loratadine 10 Mg Tablet) 10 mg PO DAILY PRN PRN Reason: Itching Last Admin: 05/28/23 05:10 Dose: 10 mg Documented By: HO.ANTOIC Melatonin (Melatonin 3 Mg Tablet) 6 mg PO BEDTIME PRN PRN Reason: Insomnia Last Admin: 05/05/23 20:54 Dose: 6 mg Documented By: KRYSTEL Metformin HCl (Metformin Hcl Er 500 Mg Tab.Er.24h) 500 mg PO DAILY@1800 [facility] Last Admin: 05/30/23 17:46 Dose: 500 mg Documented By: CAT Omeprazole (Omeprazole 20 Mg Capsule.Dr) 20 mg PO DAILY@0630 [facility] Last Admin: 05/31/23 05:45 Dose: 20 mg Documented By: ELERISAnita Ondansetron HCl (Ondansetron Hcl 4 Mg/2 Ml Vial) 4 mg IVPUSH Q8H PRN PRN Reason: Nausea and Vomiting Last Admin: 04/05/23 12:43 Dose: 4 mg Documented By: FERMIN Polyethylene Glycol (Polyethylene Glycol 3350 17 Gm Powd.Pack) 17 gm PO DAILY PRN PRN Reason: Constipation Quetiapine Fumarate (Quetiapine Fumarate 25 Mg Tablet) 25 mg PO Q8H PRN PRN Reason: anxiety/restlessness Quetiapine Fumarate (Quetiapine Fumarate 25 Mg Tablet) 12.5 mg PO TID [facility] Last Admin: 05/31/23 08:51 Dose: 12.5 mg Documented By: ELAINE Senna (Sennosides 8.6 Mg Tablet) 17.2 mg PO BEDTIME [facility] Last Admin: 05/30/23 21:07 Dose: 17.2 mg Documented By: CAT Sertraline HCl (Sertraline Hcl 100 Mg Tablet) 100 mg PO DAILY [facility] Last Admin: 05/31/23 08:51 Dose: 100 mg Documented By: ELAINE Trazodone HCl (Trazodone Hcl 50 Mg Tablet) 50 mg PO BEDTIME PRN PRN Reason: insomnia Last Admin: 05/13/23 20:46 Dose: 50 mg Documented By: BINH Labs 05/30/23 10:25 05/30/23 10:25 Labs: Laboratory Results - last 24 hr 05/30/23 05/30/23 05/30/23 10:25 16:16 20:40 MCV 99.7 H MCH 33.1 H MCHC 33.2 RDW 14.1 Plt Count 164 MPV 9.5 Absolute Nucleated RBC 0.000 Nucleated RBC % (auto) 0.0 VBG pH 7.41 VBG pCO2 53 VBG pO2 59 VBG HCO3 34 H VBG O2 Saturation 87.0 VBG Base Excess 8.4 Anion Gap 12 Estim Creat Clear Calc 97.7 Estimated GFR > 60 POC Glucose Random Glucose 147 H Calcium 9.1 Urine Color Yellow Urine Appearance Cloudy Urine pH 6.0 Ur Specific [place] 1.020 Urine Protein 30 (1+) H Urine Glucose (UA) Negative Urine Ketones Negative Urine Blood Negative Urine Nitrite Positive H Ur Leukocyte Esterase Moderate (2+) H Urine RBC 0-2 Urine WBC >50 H Ur Squamous Epith Cells 0-2 Urine Bacteria 4+ Hyaline Casts 3-5 05/31/23 07:06 MCV MCH MCHC RDW Plt Count MPV Absolute Nucleated RBC Nucleated RBC % (auto) VBG pH VBG pCO2 VBG pO2 VBG HCO3 VBG O2 Saturation VBG Base Excess Anion Gap Estim Creat Clear Calc Estimated GFR POC Glucose 118 H Random Glucose Calcium Urine Color Urine Appearance Urine pH Ur Specific [place] Urine Protein Urine Glucose (UA) Urine Ketones Urine Blood Urine Nitrite Ur Leukocyte Esterase Urine RBC Urine WBC Ur Squamous Epith Cells Urine Bacteria Hyaline Casts Microbiology Microbiology Results: Microbiology 05/30/23 Unknown Urine Culture - Preliminary Urine clean catch - Urine olguin top Culture in progress. Assessment and Plan (1) Major neurocognitive disorder: Status: Acute Plan 72M PMH significant for?CAD, skb-ywiwgfy-nebmuxpak diabetes type 2, who initially presented to the ED on 03/15/2023 from SNF after reportedly having hallucinations and being combative with staff. Pt was placed in physician observation in the ED until he became hypoxic and tested positive for COVID admitted to the medical floor for treatment and further evaluation of acute hypoxic respiratory failure in the setting of COVID infection and new awaiting Placement Toxic metabolic encephalopathy, Likely related to medications, change in scenery, resolved work up included head CT, CBC, BMP, UA all have been negative. Concern for oversdation with meds, previously Seroquel was lowered to 25 mg t.i.d. but since patient appeared more tired and lethargic on 05/29 reduce dose of Seroquel to 12.5 mg t.i.d. and lowered as needed Seroquel to 25 mg Q 8 hours as needed , ABG unremarkable, normal electrolytes. lower Lumbar abcess s/p I and D, culture did not grow anything. Has completed course of Augmentin local wound care, no packing , foam dressing and change every other day , no worsening wound, no drainage Acute hypoxic respiratory failure in the setting COVID 19 infection, resolved Finished course of dexamethasone and remdesivir baseline home oxygen 2 L Left mid back discomfort lipoma, no acute intervention. HTN Stable BP continue coreg and lasix morbid obesity weight loss advised Xyr-gcbrdts-mzixiixsd type 2 diabetes Blood sugars stable, continue metformin, check blood sugars at a.m., insulin sliding scale discontinued on 05/27. Was on Neurontin 300 mg t.i.d. dose was reduced to 200 mg b.i.d. , but currently on hold since patient noted to be sedated, will resume as clinically indicated. Full Code Auroranox Unable to find accepting SNF. plan will be to go home with services. requires continued hospital stay for safe disposition pending Bariatric equipments delivery and safe discharge plan . Quality Stroke Does the patient have a stroke diagnosis?: No VTE Prior VTE?: No VTE Risk Level:: Medical - moderate - high VTE Device Contraindication: Treatment Not Indicated VTE Drug Contraindication: N/A - Med Ordered
[2023-05-31] MEDS: Acetaminophen 325 MG TABLET 975 MG PO ×2 (14:25→19:54)
[2023-05-31 15:22] VITALS: BP 111/56; PULSE 58; RESP 20; TEMP 36.4; O2SAT 96
[2023-05-31] MEDS: metFORMIN HCl ER 500 MG TAB.ER.24H PO (17:36)
[2023-05-31] MEDS: Enoxaparin Sodium 40 MG/0.4 ML SYRINGE SUBCUT (19:53)
[2023-05-31] MEDS: Atorvastatin Calcium 40 MG TABLET PO (19:54)
[2023-05-31] MEDS: Sennosides 8.6 MG TABLET 17.2 MG PO (19:54)
[2023-05-31 20:00] VITALS: BP 132/61; PULSE 70; RESP 19; TEMP 36.9; O2SAT 95
[2023-06-01 02:42] VITALS: BP 126/61; PULSE 64; RESP 19; TEMP 36.7; O2SAT 95
[2023-06-01] MEDS: Omeprazole 20 MG CAPSULE.DR PO (05:51)
[2023-06-01 07:09] VITALS: BP 115/58; PULSE 66; RESP 16; TEMP 36.4; O2SAT 95
[2023-06-01 07:27] LABS: Glucose, Whole Blood 100 mg/dL (60-115)
[2023-06-01] MEDS: Folic Acid 1 MG TABLET PO (07:34)
[2023-06-01] MEDS: Aspirin Enteric Coated 81 MG TABLET.DR PO (07:34)
[2023-06-01] MEDS: QUEtiapine Fumarate 25 MG TABLET 12.5 MG PO ×3 (07:35→19:50)
[2023-06-01] MEDS: Furosemide 40 MG TABLET PO (07:35)
[2023-06-01] MEDS: carvediloL 3.125 MG TABLET PO ×2 (07:35→19:49)
[2023-06-01] MEDS: Loratadine 10 MG TABLET PO (07:35)
[2023-06-01] MEDS: Sertraline HCL 100 MG TABLET PO (07:35)
[2023-06-01] MEDS: Clopidogrel Bisulfate 75 MG TABLET PO (07:36)
[2023-06-01] MEDS: Acetaminophen 325 MG TABLET 975 MG PO ×3 (07:36→19:50)
[2023-06-01] MEDS: Ammonium Lactate 12 % Lotion 226 GM BOTTLE 1 APPL TOPICAL ×2 (07:37→19:51)
[2023-06-01 07:51] LABS: Creatinine Clr Calc Pharmacy 102.8; Estimated Glomerular Filt Rate > 60
[2023-06-01 08:20] VITALS: PULSE 66; RESP 16; O2SAT 91
[2023-06-01] MEDS: Fluticasone/Umeclidinium/Vilanterol 200/62.5/25 BLST.W.DEV 1 PUFF INHALE (08:20)
--- NOTE | 2023-06-01 12:52 | MHC.CM.PN ---
spoke with pts daughter fide re delivery of medical equipment which has been approved confimed delivery address with daughter ,[facility] notified of upcoming dc ..referral to [facility] for [facility] ,mow etc callled placed to [facility] to request call back for im[facility] on servies and ?[facility]
--- NOTE | 2023-06-01 14:21 | P.PNIM_ITS ---
Subjective Subjective Date of Service: 06/01/23 Interval History: Being followed for placement Awake alert offers no acute complaints, tolerating diet, no nausea, no vomiting, wishes to be discharged home. Review of Systems All other system reviewed and negative. Physical Exam 2 Vital Signs: Vital Signs: Last Vital Signs Temp 97.5 F 06/01/23 07:09 Pulse 66 06/01/23 08:20 Resp 16 06/01/23 08:20 BP 115/58 L 06/01/23 07:09 Pulse Ox 95 06/01/23 07:09 O2 Del Method Nasal Cannula 06/01/23 07:09 O2 Flow Rate 2 06/01/23 07:09 Oxygen Flow Rate 3 03/15/23 18:32 BMI result Body Mass Index 44.3 Const: Other: Constitutional : Awake alert at his baseline, not somnolent or sedated, not in distress, legally blind Neck : Normal inspection, Supple, no JVD Cardiovascular : RRR, Respiratory : Clear to auscultation, no crackles, wheezes or rhonchi Gastrointestinal: soft, Normal bowel sounds, Non tender Skin : Warm, Dry Neurological : oriented x3, moving all extremities, speech clear Objective Data Active Medications Acetaminophen (Acetaminophen 325 Mg Tablet) 975 mg PO TID [facility] Last Admin: 06/01/23 07:36 Dose: 975 mg Documented By: ELAINE Al Hydroxide/Mg Hydroxide (Magnesium Hydrox/Alum Hydrox 30 Ml Oral.Susp) 30 ml PO Q6H PRN PRN Reason: dyspepsia Albuterol Sulfate (Albuterol Sulfate 90 Mcg 8 Gm Inhaler) 2 puff INHALE Q4H PRN PRN Reason: Wheezing Aspirin (Aspirin Enteric Coated 81 Mg Tablet.) 81 mg PO DAILY [facility] Last Admin: 06/01/23 07:34 Dose: 81 mg Documented By: ELAINE Atorvastatin Calcium (Atorvastatin Calcium 40 Mg Tablet) 40 mg PO BEDTIME [facility] Last Admin: 05/31/23 19:54 Dose: 40 mg Documented By: BINH Carvedilol (Carvedilol 3.125 Mg Tablet) 3.125 mg PO BID [facility]; Protocol Last Admin: 06/01/23 07:35 Dose: 3.125 mg Documented By: ELAINE Clopidogrel Bisulfate (Clopidogrel Bisulfate 75 Mg Tablet) 75 mg PO DAILY [facility] Last Admin: 06/01/23 07:36 Dose: 75 mg Documented By: ELAINE Cyanocobalamin (Cyanocobalamin (Vitamin B-12) 1,000 Mcg/Ml Vial) 1,000 mcg IM Q30D [facility] Last Admin: 05/08/23 09:05 Dose: Not Given Documented By: ALEXA Non-Admin Reason: Patient Refused Docusate Sodium (Docusate Sodium 100 Mg Capsule) 100 mg PO BID PRN PRN Reason: Constipation Enoxaparin Sodium (Enoxaparin Sodium 40 Mg/0.4 Ml Syringe) 40 mg SUBCUT Q24H [facility] Last Admin: 05/31/23 19:53 Dose: 40 mg Documented By: BINH Fluticasone/Umeclidinium/Vilanterol (Fluticasone/Umeclidinium/Vilanterol 200/62.5/25 Blst.W.Dev) 1 puff INHALE RDAILY [facility] Last Admin: 06/01/23 08:20 Dose: 1 puff Documented By: PERLA Folic Acid (Folic Acid 1 Mg Tablet) 1 mg PO DAILY [facility] Last Admin: 06/01/23 07:34 Dose: 1 mg Documented By: ELAINE Furosemide (Furosemide 40 Mg Tablet) 40 mg PO DAILY [facility]; Protocol Last Admin: 06/01/23 07:35 Dose: 40 mg Documented By: ELAINE Gabapentin (Gabapentin 100 Mg Capsule) 200 mg PO BID [facility] Last Admin: 05/05/23 09:49 Dose: 200 mg Documented By: LEANN Glucose (Glucose Gel 15 Gm Gel..Gram.) 15 gm PO Q15M PRN; Protocol PRN Reason: per Hypoglycemia Standing Ord. Dextrose (D10) 250 mls @ 750 mls/hr IV Q15M PRN PRN Reason: per Hypoglycemia Standing Ord. Lactic Acid (Ammonium Lactate 12 % Lotion 226 Gm Bottle) 1 appl TOPICAL BID [facility]; Protocol Last Admin: 06/01/23 07:37 Dose: 1 appl Documented By: ELAINE Lactulose (Lactulose 20 Gm/30 Ml Solution) 10 gm PO DAILY PRN PRN Reason: Constipation Loratadine (Loratadine 10 Mg Tablet) 10 mg PO DAILY PRN PRN Reason: Itching Last Admin: 06/01/23 07:35 Dose: 10 mg Documented By: ELAINE Melatonin (Melatonin 3 Mg Tablet) 6 mg PO BEDTIME PRN PRN Reason: Insomnia Last Admin: 05/05/23 20:54 Dose: 6 mg Documented By: KRYSTLE Metformin HCl (Metformin Hcl Er 500 Mg Tab.Er.24h) 500 mg PO DAILY@1800 [facility] Last Admin: 05/31/23 17:36 Dose: 500 mg Documented By: RYLEE Omeprazole (Omeprazole 20 Mg Capsule.Dr) 20 mg PO DAILY@0630 [facility] Last Admin: 06/01/23 05:51 Dose: 20 mg Documented By: BINH Ondansetron HCl (Ondansetron Hcl 4 Mg/2 Ml Vial) 4 mg IVPUSH Q8H PRN PRN Reason: Nausea and Vomiting Last Admin: 04/05/23 12:43 Dose: 4 mg Documented By: FERMIN Polyethylene Glycol (Polyethylene Glycol 3350 17 Gm Powd.Pack) 17 gm PO DAILY PRN PRN Reason: Constipation Quetiapine Fumarate (Quetiapine Fumarate 25 Mg Tablet) 25 mg PO Q8H PRN PRN Reason: anxiety/restlessness Quetiapine Fumarate (Quetiapine Fumarate 25 Mg Tablet) 12.5 mg PO TID [facility] Last Admin: 06/01/23 07:35 Dose: 12.5 mg Documented By: ELAINE Senna (Sennosides 8.6 Mg Tablet) 17.2 mg PO BEDTIME [facility] Last Admin: 05/31/23 19:54 Dose: 17.2 mg Documented By: BINH Sertraline HCl (Sertraline Hcl 100 Mg Tablet) 100 mg PO DAILY [facility] Last Admin: 06/01/23 07:35 Dose: 100 mg Documented By: ELAINE Trazodone HCl (Trazodone Hcl 50 Mg Tablet) 50 mg PO BEDTIME PRN PRN Reason: insomnia Last Admin: 05/13/23 20:46 Dose: 50 mg Documented By: BINH Labs 05/30/23 10:25 06/01/23 05:47 Labs: Laboratory Results - last 24 hr 06/01/23 06/01/23 05:47 07:15 Hold Purple Top SEE NOTE Estim Creat Clear Calc 102.8 Estimated GFR > 60 POC Glucose 100 Microbiology Microbiology Results: Microbiology 05/30/23 Unknown Urine Culture - Preliminary Urine clean catch - Urine olguin top Gram negative marce Assessment and Plan (1) Major neurocognitive disorder: Status: Acute Plan 72M PMH significant for?CAD, wkl-cdaptaf-ekqzrmoqy diabetes type 2, who initially presented to the ED on 03/15/2023 from SNF after reportedly having hallucinations and being combative with staff. Pt was placed in physician observation in the ED until he became hypoxic and tested positive for COVID admitted to the medical floor for treatment and further evaluation of acute hypoxic respiratory failure in the setting of COVID infection and new awaiting Placement Toxic metabolic encephalopathy, Likely related to medications, change in scenery, resolved work up included head CT, CBC, BMP, UA all have been negative. Concern for oversdation with meds, previously Seroquel was lowered to 25 mg t.i.d. but since patient appeared more tired and lethargic on 05/29 reduce dose of Seroquel to 12.5 mg t.i.d. and lowered as needed Seroquel to 25 mg Q 8 hours as needed , ABG unremarkable, normal electrolytes. No behavioral issues noted. lower Lumbar abcess s/p I and D, culture did not grow anything. Has completed course of Augmentin local wound care, no packing , foam dressing and change every other day , no worsening wound, no drainage Acute hypoxic respiratory failure in the setting COVID 19 infection, resolved Finished course of dexamethasone and remdesivir baseline home oxygen 2 L Left mid back discomfort lipoma, no acute intervention. HTN Stable BP continue coreg and lasix morbid obesity weight loss advised Ikc-sqyrjhf-ghqlaxrps type 2 diabetes Blood sugars stable, continue metformin, check blood sugars at a.m., insulin sliding scale discontinued on 05/27. Was on Neurontin 300 mg t.i.d. dose was reduced to 200 mg b.i.d. , but currently on hold since patient noted to be sedated, will resume as clinically indicated. Full Code Lovenox Unable to find accepting SNF. plan will be to go home with services. requires continued hospital stay for safe disposition pending Bariatric equipments delivery and safe discharge plan . Quality Stroke Does the patient have a stroke diagnosis?: No VTE Prior VTE?: No VTE Risk Level:: Medical - moderate - high VTE Device Contraindication: Treatment Not Indicated VTE Drug Contraindication: N/A - Med Ordered
[2023-06-01 15:40] VITALS: BP 129/60; PULSE 75; RESP 18; TEMP 36.2; O2SAT 94
[2023-06-01 16:24] LABS: Glucose, Whole Blood 172 mg/dL (60-115)
[2023-06-01] MEDS: metFORMIN HCl ER 500 MG TAB.ER.24H PO (17:10)
[2023-06-01 19:12] VITALS: BP 133/72; PULSE 81; RESP 18; TEMP 36.5; O2SAT 93
[2023-06-01] MEDS: Enoxaparin Sodium 40 MG/0.4 ML SYRINGE SUBCUT (19:47)
[2023-06-01 19:49] VITALS: BP 130/76; PULSE 80
[2023-06-01] MEDS: Atorvastatin Calcium 40 MG TABLET PO (19:50)
[2023-06-01] MEDS: Sennosides 8.6 MG TABLET 17.2 MG PO (19:50)
[2023-06-02] VITALS (8 sets, daily range): BP systolic 103–134; BP diastolic 56–62; PULSE 65–80; RESP 16–19; TEMP 36.2–36.6; O2SAT 92–97
[2023-06-02] MEDS: Omeprazole 20 MG CAPSULE.DR PO (05:29)
[2023-06-02 07:30] LABS: Glucose, Whole Blood 98 mg/dL (60-115)
[2023-06-02] MEDS: carvediloL 3.125 MG TABLET PO ×2 (07:45→19:43)
[2023-06-02] MEDS: Furosemide 40 MG TABLET PO (07:46)
[2023-06-02] MEDS: Sertraline HCL 100 MG TABLET PO (07:46)
[2023-06-02] MEDS: Folic Acid 1 MG TABLET PO (07:46)
[2023-06-02] MEDS: QUEtiapine Fumarate 25 MG TABLET 12.5 MG PO ×3 (07:46→19:42)
[2023-06-02] MEDS: Acetaminophen 325 MG TABLET 975 MG PO ×2 (07:46→19:41)
[2023-06-02] MEDS: Clopidogrel Bisulfate 75 MG TABLET PO (07:46)
[2023-06-02] MEDS: Loratadine 10 MG TABLET PO (07:46)
[2023-06-02] MEDS: Aspirin Enteric Coated 81 MG TABLET.DR PO (07:46)
[2023-06-02] MEDS: Ammonium Lactate 12 % Lotion 226 GM BOTTLE 1 APPL TOPICAL ×2 (07:47→19:45)
[2023-06-02] MEDS: Fluticasone/Umeclidinium/Vilanterol 200/62.5/25 BLST.W.DEV 1 PUFF INHALE (08:07)
--- NOTE | 2023-06-02 10:40 | P.PNIM_ITS ---
Subjective Subjective Date of Service: 06/02/23 Interval History: Being followed for placement Offers no acute complaints, tolerating diet, with no nausea, no vomiting or diarrhea. No acute events overnight. Requesting to be discharged home. Review of Systems All other system reviewed and negative. Physical Exam 2 Vital Signs: Vital Signs: Last Vital Signs Temp 97.5 F 06/02/23 07:11 Pulse 76 06/02/23 08:07 Resp 18 06/02/23 08:07 BP 134/60 06/02/23 07:46 Pulse Ox 94 06/02/23 07:11 O2 Del Method Nasal Cannula 06/02/23 07:11 O2 Flow Rate 2 06/02/23 07:11 Oxygen Flow Rate 3 03/15/23 18:32 BMI result Body Mass Index 44.3 Const: Other: Constitutional : alert, interactive, not in distress, legally blind, Neck : Normal inspection, Supple, no JVD Cardiovascular : RRR, Respiratory : Clear to auscultation, no crackles, wheezes or rhonchi Gastrointestinal: soft, Normal bowel sounds, Non tender Skin : Warm, Dry Neurological : Alert , oriented x3, moving all extremities, not sleepy or sedated Objective Data Active Medications Acetaminophen (Acetaminophen 325 Mg Tablet) 975 mg PO TID [facility] Last Admin: 06/02/23 07:46 Dose: 975 mg Documented By: CARROLL Al Hydroxide/Mg Hydroxide (Magnesium Hydrox/Alum Hydrox 30 Ml Oral.Susp) 30 ml PO Q6H PRN PRN Reason: dyspepsia Albuterol Sulfate (Albuterol Sulfate 90 Mcg 8 Gm Inhaler) 2 puff INHALE Q4H PRN PRN Reason: Wheezing Aspirin (Aspirin Enteric Coated 81 Mg Tablet.) 81 mg PO DAILY [facility] Last Admin: 06/02/23 07:46 Dose: 81 mg Documented By: CARROLL Atorvastatin Calcium (Atorvastatin Calcium 40 Mg Tablet) 40 mg PO BEDTIME [facility] Last Admin: 06/01/23 19:50 Dose: 40 mg Documented By: RAZIA Carvedilol (Carvedilol 3.125 Mg Tablet) 3.125 mg PO BID [facility]; Protocol Last Admin: 06/02/23 07:45 Dose: 3.125 mg Documented By: CARROLL Clopidogrel Bisulfate (Clopidogrel Bisulfate 75 Mg Tablet) 75 mg PO DAILY [facility] Last Admin: 06/02/23 07:46 Dose: 75 mg Documented By: CARROLL Cyanocobalamin (Cyanocobalamin (Vitamin B-12) 1,000 Mcg/Ml Vial) 1,000 mcg IM Q30D [facility] Last Admin: 05/08/23 09:05 Dose: Not Given Documented By: ALEXA Non-Admin Reason: Patient Refused Docusate Sodium (Docusate Sodium 100 Mg Capsule) 100 mg PO BID PRN PRN Reason: Constipation Enoxaparin Sodium (Enoxaparin Sodium 40 Mg/0.4 Ml Syringe) 40 mg SUBCUT Q24H [facility] Last Admin: 06/01/23 19:47 Dose: 40 mg Documented By: RAZIA Fluticasone/Umeclidinium/Vilanterol (Fluticasone/Umeclidinium/Vilanterol 200/62.5/25 Blst.W.Dev) 1 puff INHALE RDAILY [facility] Last Admin: 06/02/23 08:07 Dose: 1 puff Documented By: JASSI Folic Acid (Folic Acid 1 Mg Tablet) 1 mg PO DAILY [facility] Last Admin: 06/02/23 07:46 Dose: 1 mg Documented By: CARROLL Furosemide (Furosemide 40 Mg Tablet) 40 mg PO DAILY [facility]; Protocol Last Admin: 06/02/23 07:46 Dose: 40 mg Documented By: CARROLL Gabapentin (Gabapentin 100 Mg Capsule) 200 mg PO BID [facility] Last Admin: 05/05/23 09:49 Dose: 200 mg Documented By: LEANN Glucose (Glucose Gel 15 Gm Gel..Gram.) 15 gm PO Q15M PRN; Protocol PRN Reason: per Hypoglycemia Standing Ord. Dextrose (D10) 250 mls @ 750 mls/hr IV Q15M PRN PRN Reason: per Hypoglycemia Standing Ord. Lactic Acid (Ammonium Lactate 12 % Lotion 226 Gm Bottle) 1 appl TOPICAL BID [facility]; Protocol Last Admin: 06/02/23 07:47 Dose: 1 appl Documented By: CARROLL Lactulose (Lactulose 20 Gm/30 Ml Solution) 10 gm PO DAILY PRN PRN Reason: Constipation Loratadine (Loratadine 10 Mg Tablet) 10 mg PO DAILY PRN PRN Reason: Itching Last Admin: 06/02/23 07:46 Dose: 10 mg Documented By: CARROLL Melatonin (Melatonin 3 Mg Tablet) 6 mg PO BEDTIME PRN PRN Reason: Insomnia Last Admin: 05/05/23 20:54 Dose: 6 mg Documented By: KRYSTLE Metformin HCl (Metformin Hcl Er 500 Mg Tab.Er.24h) 500 mg PO DAILY@1800 [facility] Last Admin: 06/01/23 17:10 Dose: 500 mg Documented By: RAZIA Omeprazole (Omeprazole 20 Mg Capsule.Dr) 20 mg PO DAILY@0630 [facility] Last Admin: 06/02/23 05:29 Dose: 20 mg Documented By: BINH Ondansetron HCl (Ondansetron Hcl 4 Mg/2 Ml Vial) 4 mg IVPUSH Q8H PRN PRN Reason: Nausea and Vomiting Last Admin: 04/05/23 12:43 Dose: 4 mg Documented By: FERMIN Polyethylene Glycol (Polyethylene Glycol 3350 17 Gm Powd.Pack) 17 gm PO DAILY PRN PRN Reason: Constipation Quetiapine Fumarate (Quetiapine Fumarate 25 Mg Tablet) 25 mg PO Q8H PRN PRN Reason: anxiety/restlessness Quetiapine Fumarate (Quetiapine Fumarate 25 Mg Tablet) 12.5 mg PO TID [facility] Last Admin: 06/02/23 07:46 Dose: 12.5 mg Documented By: CARROLL Senna (Sennosides 8.6 Mg Tablet) 17.2 mg PO BEDTIME [facility] Last Admin: 06/01/23 19:50 Dose: 17.2 mg Documented By: RAZIA Sertraline HCl (Sertraline Hcl 100 Mg Tablet) 100 mg PO DAILY [facility] Last Admin: 06/02/23 07:46 Dose: 100 mg Documented By: CARROLL Trazodone HCl (Trazodone Hcl 50 Mg Tablet) 50 mg PO BEDTIME PRN PRN Reason: insomnia Last Admin: 05/13/23 20:46 Dose: 50 mg Documented By: BINH Labs 05/30/23 10:25 06/01/23 05:47 Labs: Laboratory Results - last 24 hr 06/01/23 06/02/23 15:45 07:16 POC Glucose 172 H 98 Microbiology Microbiology Results: Microbiology 05/30/23 Unknown Urine Culture - Final Urine clean catch - Urine olguin top Escherichia coli Proteus mirabilis Assessment and Plan (1) Major neurocognitive disorder: Status: Acute Plan 72M PMH significant for?CAD, xjt-rldtjgj-llaludufj diabetes type 2, who initially presented to the ED on 03/15/2023 from SNF after reportedly having hallucinations and being combative with staff. Pt was placed in physician observation in the ED until he became hypoxic and tested positive for COVID admitted to the medical floor for treatment and further evaluation of acute hypoxic respiratory failure in the setting of COVID infection and new awaiting Placement Toxic metabolic encephalopathy, Likely related to medications, change in scenery, resolved work up included head CT, CBC, BMP, UA all have been negative. Concern for oversdation with meds, previously Seroquel was lowered to 25 mg t.i.d. but since patient appeared more tired and lethargic on 05/29 reduce dose of Seroquel to 12.5 mg t.i.d. and lowered as needed Seroquel to 25 mg Q 8 hours as needed , ABG unremarkable, normal electrolytes. No behavioral issues noted since lowering dose of Seroquel on 05/30/23. lower Lumbar abcess s/p I and D, culture did not grow anything. Has completed course of Augmentin local wound care, no packing , foam dressing and change every other day , no worsening wound, no drainage Acute hypoxic respiratory failure in the setting COVID 19 infection, resolved Finished course of dexamethasone and remdesivir baseline home oxygen 2 L Left mid back discomfort lipoma, no acute intervention. HTN Stable BP continue coreg and lasix morbid obesity weight loss advised Rog-ujdaxhz-dqmkdkjjo type 2 diabetes Blood sugars stable, continue metformin, check blood sugars at a.m., insulin sliding scale discontinued on 05/27. Was on Neurontin 300 mg t.i.d. dose was reduced to 200 mg b.i.d. , but currently on hold since patient noted to be sedated, will resume as clinically indicated. Full Code Lovenox Unable to find accepting SNF. plan will be to go home with services. requires continued hospital stay for safe disposition pending Bariatric equipments delivery and safe discharge plan . Quality Stroke Does the patient have a stroke diagnosis?: No VTE Prior VTE?: No VTE Risk Level:: Medical - moderate - high VTE Device Contraindication: Treatment Not Indicated VTE Drug Contraindication: N/A - Med Ordered
--- NOTE | 2023-06-02 12:16 | MHC.CM.PN ---
juvencio has asked that dc be arranged for sat as she will not be working and can help her mom over the weekend ,[facility] notified [facility] has declined pt referrals to other [facility] aware
--- NOTE | 2023-06-02 14:25 | MHC.CM.PN ---
spoke with pts daughter marla [phone] who is now saying pt can not go home sat because they do not have supplies ,explined that was the day agreed upon and that [facility] was having medical equipment elivered on wednesday so we could dc pt wed ,she again said no..that wouldnt work that it was not a safe dc as they do not have all medical supplies such as wipes..explained the [facility] appeal process ,copies of the [facility] sent certified mail to [address] [place] [address]
--- NOTE | 2023-06-02 15:06 | MHC.CM.PN ---
pts daughter fully aware of when finacial respomsibilty will begin 06/05/2023
[2023-06-02] MEDS: metFORMIN HCl ER 500 MG TAB.ER.24H PO (17:04)
[2023-06-02] MEDS: Enoxaparin Sodium 40 MG/0.4 ML SYRINGE SUBCUT (19:41)
[2023-06-02] MEDS: Atorvastatin Calcium 40 MG TABLET PO (19:42)
[2023-06-02] MEDS: Sennosides 8.6 MG TABLET 17.2 MG PO (19:42)
[2023-06-03] MEDS: Omeprazole 20 MG CAPSULE.DR PO (05:55)
[2023-06-03 07:18] LABS: Glucose, Whole Blood 104 mg/dL (60-115)
[2023-06-03 07:35] VITALS: BP 146/62; PULSE 77; RESP 16; TEMP 36.2; O2SAT 91
[2023-06-03] MEDS: Fluticasone/Umeclidinium/Vilanterol 200/62.5/25 BLST.W.DEV 1 PUFF INHALE (07:44)
[2023-06-03 07:45] VITALS: PULSE 77; RESP 16; O2SAT 92
[2023-06-03] MEDS: Folic Acid 1 MG TABLET PO (09:45)
[2023-06-03] MEDS: Clopidogrel Bisulfate 75 MG TABLET PO (09:45)
[2023-06-03] MEDS: Sertraline HCL 100 MG TABLET PO (09:45)
[2023-06-03] MEDS: Aspirin Enteric Coated 81 MG TABLET.DR PO (09:45)
[2023-06-03] MEDS: Acetaminophen 325 MG TABLET 975 MG PO ×2 (09:45→20:46)
[2023-06-03] MEDS: Ammonium Lactate 12 % Lotion 226 GM BOTTLE 1 APPL TOPICAL ×2 (09:45→20:47)
[2023-06-03 09:46] VITALS: BP 131/60; PULSE 77
[2023-06-03] MEDS: carvediloL 3.125 MG TABLET PO ×2 (09:46→20:46)
[2023-06-03] MEDS: QUEtiapine Fumarate 25 MG TABLET 12.5 MG PO ×2 (09:46→20:46)
[2023-06-03] MEDS: Furosemide 40 MG TABLET PO (09:46)
--- NOTE | 2023-06-03 10:21 | HO.PM.IMPN ---
Subjective Subjective Date of Service: 06/03/23 Interval History: Being followed for placement. Offers no acute complaints, no events of agitation, aggression, tolerating diet requesting for cold cranberry juice, no acute events overnight. Review of Systems All other system reviewed and negative. Physical Exam Vital Signs: Vital Signs: Last Vital Signs Temp 97.1 F 06/03/23 07:35 Pulse 77 06/03/23 09:46 Resp 16 06/03/23 07:45 BP 131/60 06/03/23 09:46 Pulse Ox 91 L 06/03/23 07:35 O2 Del Method Nasal Cannula 06/03/23 07:35 O2 Flow Rate 2 06/03/23 07:35 Oxygen Flow Rate 3 03/15/23 18:32 BMI result Body Mass Index 44.3 Const: Other: Constitutional : alert, interactive, not in distress, legally blind, Neck : Normal inspection, Supple, no JVD Cardiovascular : RRR, Respiratory : Clear to auscultation, no crackles, wheezes or rhonchi Gastrointestinal: soft, Normal bowel sounds, Non tender Skin : Warm, Dry Neurological : Alert , oriented x3, moving all extremities, not sleepy or sedated Objective Data Active Medications Acetaminophen (Acetaminophen 325 Mg Tablet) 975 mg PO TID [facility] Last Admin: 06/03/23 09:45 Dose: 975 mg Documented By: CAT Al Hydroxide/Mg Hydroxide (Magnesium Hydrox/Alum Hydrox 30 Ml Oral.Susp) 30 ml PO Q6H PRN PRN Reason: dyspepsia Albuterol Sulfate (Albuterol Sulfate 90 Mcg 8 Gm Inhaler) 2 puff INHALE Q4H PRN PRN Reason: Wheezing Aspirin (Aspirin Enteric Coated 81 Mg Tablet.) 81 mg PO DAILY [facility] Last Admin: 06/03/23 09:45 Dose: 81 mg Documented By: CAT Atorvastatin Calcium (Atorvastatin Calcium 40 Mg Tablet) 40 mg PO BEDTIME [facility] Last Admin: 06/02/23 19:42 Dose: 40 mg Documented By: FERMIN Carvedilol (Carvedilol 3.125 Mg Tablet) 3.125 mg PO BID [facility]; Protocol Last Admin: 06/03/23 09:46 Dose: 3.125 mg Documented By: CAT Clopidogrel Bisulfate (Clopidogrel Bisulfate 75 Mg Tablet) 75 mg PO DAILY [facility] Last Admin: 06/03/23 09:45 Dose: 75 mg Documented By: CAT Cyanocobalamin (Cyanocobalamin (Vitamin B-12) 1,000 Mcg/Ml Vial) 1,000 mcg IM Q30D [facility] Last Admin: 05/08/23 09:05 Dose: Not Given Documented By: ALEXA Non-Admin Reason: Patient Refused Docusate Sodium (Docusate Sodium 100 Mg Capsule) 100 mg PO BID PRN PRN Reason: Constipation Enoxaparin Sodium (Enoxaparin Sodium 40 Mg/0.4 Ml Syringe) 40 mg SUBCUT Q24H [facility] Last Admin: 06/02/23 19:41 Dose: 40 mg Documented By: FERMIN Fluticasone/Umeclidinium/Vilanterol (Fluticasone/Umeclidinium/Vilanterol 200/62.5/25 Blst.W.Dev) 1 puff INHALE RDAILY [facility] Last Admin: 06/03/23 07:44 Dose: 1 puff Documented By: JASSI Folic Acid (Folic Acid 1 Mg Tablet) 1 mg PO DAILY [facility] Last Admin: 06/03/23 09:45 Dose: 1 mg Documented By: CAT Furosemide (Furosemide 40 Mg Tablet) 40 mg PO DAILY [facility]; Protocol Last Admin: 06/03/23 09:46 Dose: 40 mg Documented By: CAT Gabapentin (Gabapentin 100 Mg Capsule) 200 mg PO BID [facility] Last Admin: 05/05/23 09:49 Dose: 200 mg Documented By: LEANN Glucose (Glucose Gel 15 Gm Gel..Gram.) 15 gm PO Q15M PRN; Protocol PRN Reason: per Hypoglycemia Standing Ord. Dextrose (D10) 250 mls @ 750 mls/hr IV Q15M PRN PRN Reason: per Hypoglycemia Standing Ord. Lactic Acid (Ammonium Lactate 12 % Lotion 226 Gm Bottle) 1 appl TOPICAL BID [facility]; Protocol Last Admin: 06/03/23 09:45 Dose: 1 appl Documented By: CAT Lactulose (Lactulose 20 Gm/30 Ml Solution) 10 gm PO DAILY PRN PRN Reason: Constipation Loratadine (Loratadine 10 Mg Tablet) 10 mg PO DAILY PRN PRN Reason: Itching Last Admin: 06/02/23 07:46 Dose: 10 mg Documented By: CARROLL Melatonin (Melatonin 3 Mg Tablet) 6 mg PO BEDTIME PRN PRN Reason: Insomnia Last Admin: 05/05/23 20:54 Dose: 6 mg Documented By: KRYSTLE Metformin HCl (Metformin Hcl Er 500 Mg Tab.Er.24h) 500 mg PO DAILY@1800 [facility] Last Admin: 06/02/23 17:04 Dose: 500 mg Documented By: CARROLL Omeprazole (Omeprazole 20 Mg Capsule.Dr) 20 mg PO DAILY@0630 [facility] Last Admin: 06/03/23 05:55 Dose: 20 mg Documented By: FERMIN Ondansetron HCl (Ondansetron Hcl 4 Mg/2 Ml Vial) 4 mg IVPUSH Q8H PRN PRN Reason: Nausea and Vomiting Last Admin: 04/05/23 12:43 Dose: 4 mg Documented By: FERMIN Polyethylene Glycol (Polyethylene Glycol 3350 17 Gm Powd.Pack) 17 gm PO DAILY PRN PRN Reason: Constipation Quetiapine Fumarate (Quetiapine Fumarate 25 Mg Tablet) 25 mg PO Q8H PRN PRN Reason: anxiety/restlessness Quetiapine Fumarate (Quetiapine Fumarate 25 Mg Tablet) 12.5 mg PO TID [facility] Last Admin: 06/03/23 09:46 Dose: 12.5 mg Documented By: CAT Senna (Sennosides 8.6 Mg Tablet) 17.2 mg PO BEDTIME [facility] Last Admin: 06/02/23 19:42 Dose: 17.2 mg Documented By: FERMIN Sertraline HCl (Sertraline Hcl 100 Mg Tablet) 100 mg PO DAILY [facility] Last Admin: 06/03/23 09:45 Dose: 100 mg Documented By: CAT Trazodone HCl (Trazodone Hcl 50 Mg Tablet) 50 mg PO BEDTIME PRN PRN Reason: insomnia Last Admin: 05/13/23 20:46 Dose: 50 mg Documented By: BINH Labs 05/30/23 10:25 06/01/23 05:47 Labs: Laboratory Results - last 24 hr 06/03/23 07:11 POC Glucose 104 Microbiology Microbiology Results: Microbiology 05/30/23 Unknown Urine Culture - Final Urine clean catch - Urine olguin top Escherichia coli Proteus mirabilis Assessment and Plan (1) Major neurocognitive disorder: Status: Acute Plan 72M PMH significant for?CAD, vnq-izpfllv-ykzcknkcg diabetes type 2, who initially presented to the ED on 03/15/2023 from SNF after reportedly having hallucinations and being combative with staff. Pt was placed in physician observation in the ED until he became hypoxic and tested positive for COVID admitted to the medical floor for treatment and further evaluation of acute hypoxic respiratory failure in the setting of COVID infection and new awaiting Placement Toxic metabolic encephalopathy, Likely related to medications, change in scenery, resolved work up included head CT, CBC, BMP, UA all have been negative. Concern for oversdation with meds, previously Seroquel was lowered to 25 mg t.i.d. but since patient appeared more tired and lethargic on 05/29 reduce dose of Seroquel to 12.5 mg t.i.d. and lowered as needed Seroquel to 25 mg Q 8 hours as needed , ABG unremarkable, normal electrolytes. No behavioral issues noted since lowering dose of Seroquel on 05/30/23. lower Lumbar abcess s/p I and D, culture did not grow anything. Has completed course of Augmentin local wound care, no packing , foam dressing and change every other day , no worsening wound, no drainage Acute hypoxic respiratory failure in the setting COVID 19 infection, resolved Finished course of dexamethasone and remdesivir baseline home oxygen 2 L Left mid back discomfort lipoma, no acute intervention. HTN Stable BP continue coreg and lasix morbid obesity weight loss advised Aoo-vrauocb-lnwdphrxt type 2 diabetes Blood sugars stable, continue metformin, check blood sugars at a.m., insulin sliding scale discontinued on 05/27. Was on Neurontin 300 mg t.i.d. dose was reduced to 200 mg b.i.d. , but currently on hold since patient noted to be sedated, will resume as clinically indicated. Full Code Lovenox Unable to find accepting SNF. plan will be to go home with services. requires continued hospital stay for safe disposition pending Bariatric equipments delivery and safe discharge plan . Quality Stroke Does the patient have a stroke diagnosis?: No VTE Prior VTE?: No VTE Risk Level:: Medical - moderate - high VTE Device Contraindication: Treatment Not Indicated VTE Drug Contraindication: N/A - Med Ordered
--- NOTE | 2023-06-03 12:45 | MHC.CM.PN ---
Addendum entered by Zainab Miller 06/03/23 15:40: Additional referrals sent to agencies [facility] with [facility]. [facility], [facility] and [facility]. Addendum entered by Zainab Miller 06/03/23 14:52: Spoke with DAYA Pabon. She stated that the patient has been approved for [employer]. [facility] has declined the patient for home services. [facility] will Email [place] Home agencies contracted. Addendum entered by Zainab Miller 06/03/23 13:42: Contacted [place], spoke with [facility] coordinator. She suggested That [facility] be referred. The referral has been sent. The [facility] will be the payor if the case is accepted. Addendum entered by Zainab Miller 06/03/23 13:15: PT eval recommends Home with PT. The documentation has been faxed to the [facility] manufacturing coordinator, Pepper. Original Note: Met with Patient in his room to discuss discharge planning. Patients goal is home. The [facility] was called. [facility] [place] manufacturing coordinator reports that [employer] hours have been approved. Quantity of [employer] hours is not yet known. PT and OT evals are needed to qualify for home Therapy. The documentation will be faxed to Pepper at the [facility] once it is available. Patients dtr Ally called. An update was provided re: [facility] services. She requested that the HINN-12 be revoked. The [facility] OPS Director was contacted. She was informed of the Dtr/HCPs request. She stated that the family cancelled the DME delivery the HINN-12 stands. The patients daughter was called. A VM was left re HINNS-12. Contact info for [facility] Ops Director and case packer and sealer provided for any questions and/or concerns. CM will continue to follow.
[2023-06-03 16:09] VITALS: BP 143/65; PULSE 59; RESP 20; TEMP 36.7; O2SAT 95
[2023-06-03] MEDS: metFORMIN HCl ER 500 MG TAB.ER.24H PO (18:13)
[2023-06-03 19:12] VITALS: BP 138/63; PULSE 68; RESP 20; TEMP 36.2; O2SAT 97
[2023-06-03] MEDS: Enoxaparin Sodium 40 MG/0.4 ML SYRINGE SUBCUT (20:45)
[2023-06-03] MEDS: Atorvastatin Calcium 40 MG TABLET PO (20:46)
[2023-06-03] MEDS: Sennosides 8.6 MG TABLET 17.2 MG PO (20:47)
[2023-06-04] VITALS (8 sets, daily range): BP systolic 100–126; BP diastolic 54–61; PULSE 58–84; RESP 18–20; TEMP 36.1–36.6; O2SAT 82–97
[2023-06-04 06:21] LABS: Estimated Glomerular Filt Rate > 60
[2023-06-04] MEDS: Omeprazole 20 MG CAPSULE.DR PO (06:23)
[2023-06-04 07:03] LABS: Glucose, Whole Blood 122 mg/dL (60-115)
[2023-06-04] MEDS: Fluticasone/Umeclidinium/Vilanterol 200/62.5/25 BLST.W.DEV 1 PUFF INHALE (07:35)
[2023-06-04] MEDS: Clopidogrel Bisulfate 75 MG TABLET PO (08:33)
[2023-06-04] MEDS: Sertraline HCL 100 MG TABLET PO (08:33)
[2023-06-04] MEDS: Folic Acid 1 MG TABLET PO (08:33)
[2023-06-04] MEDS: Aspirin Enteric Coated 81 MG TABLET.DR PO (08:34)
[2023-06-04] MEDS: QUEtiapine Fumarate 25 MG TABLET 12.5 MG PO ×2 (08:34→20:36)
[2023-06-04] MEDS: Acetaminophen 325 MG TABLET 975 MG PO ×3 (08:34→20:35)
[2023-06-04] MEDS: Furosemide 40 MG TABLET PO (08:35)
[2023-06-04] MEDS: carvediloL 3.125 MG TABLET PO ×2 (08:35→20:44)
[2023-06-04] MEDS: Ammonium Lactate 12 % Lotion 226 GM BOTTLE 1 APPL TOPICAL ×2 (08:49→20:43)
[2023-06-04] MEDS: cefTRIAXone sodium 1 GM, Lidocaine HCl 1 % MPF 2.1 ML IM (13:09)
--- NOTE | 2023-06-04 13:17 | PC.NURSE ---
Pt accepting of IM Medication for UTI. This show card writer assisting primary RN.
--- NOTE | 2023-06-04 15:03 | MHC.CM.PN ---
Addendum entered by Anastasiia Anaya 06/04/23 15:40: CM HAD RT CONFIRM PTS O2 EQUIPMENT WAS IN THE HOME BY CALLING [employer] RT REPORTS HE WAS TOLD THE PT DOES HAVE A CONCENTRATOR IN THE HOME, HOWEVER [facility] STOPPED PAYING [employer] WHEN THE PT DID NOT FOLLOW UP WITH HIS EXPORT DOCUMENTS CLERK, SO PT IS NOT ACTIVE WITH [employer]. PT WILL HAVE A NEW HOME O2 EVALUATION PRIOR TO DC Original Note: JASPREET SPOKE TO [employer] THIS MORNING, THEY CONFIRMED PTS DELIVERY WAS ON SCHEDULE FOR BETWEEN 1000 AND 1600 HOURS TODAY CM SPOKE TO PTS , JOANN [phone], SHE REPORTS THE PTS CELL PHONE WAS LOST OVER THE PAST WEEK, SHE WANTS TO KNOW IF SHE WILL BE REIMBURSED. PER POLICY, HER CALL WAS FORWARDED TO ENERGY PROFESSIONAL. SHE IS AWARE DIRECTOR IS OUT AND WILL FOLLOW UP AT A LATER DATE. JASPREET CONFIRMED WITH JOANN, PT HAS BEEN ON HOME O2 FOR YEARS, THEY HAVE EQUIPMENT JOANN ALSO EXPRESSED FRUSTRATION THAT THE PT WAS COMING HOME TOMORROW AND SHE FELT IT WAS SPRUNG ON THEM, JASPREET REMINDED HER THAT THE DC DATE WAS AGREED UPON BETWEEN THE CM COVERING THAT DAY AND THE PTS HCP, AND THAT IT WAS DECIDED AT THE BEGINNING OF THE WEEK. SHE SAYS SHE UNDERSTANDS THIS BUT STILL FEELS IT IS UNFAIR. SHE DOES UNDERSTAND THAT THEY LOST THE APPEAL AND WILL BE CHARGED PER DAY IF PT DOES NOT DC TOMORROW. JASPREET ALSO SPOKE TO PTS DAUGHTER/HCP, ALLY THIS MORNING, SHE IS ALSO AWARE THEY HAVE LOST THE APPEAL. SHE WAS INFORMED THE DME WOULD BE DELIVERED TODAY, SHE INITALLY STATED THEY WERE NOT READY AND HAD TO MOVE THINGS. SHE WAS REMINDED SHE WAS MADE AWARE OF THE DELIVERY DATE SEVERAL DAYS AGO. PLAN IS FOR PT TO DC HOME VIA BLS AFTER LUNCH TOMORROW
--- NOTE | 2023-06-04 16:23 | HO.PM.IMPN ---
Subjective Subjective Date of Service: 06/04/23 Interval History: seen and examined this morning Follow-up for placement awake, alert, offers no complaints Review of Systems Review of Systems: Yes all other systems are reviewed and are negative Constitutional Constitutional: Denies chills and Denies fever(s) Cardiovascular Cardiovascular: Denies chest pain Respiratory Respiratory: Denies cough Gastrointestinal Gastrointestinal: Denies abdominal pain Physical Exam Vital Signs: Vital Signs: Last Vital Signs Temp 97.6 F 06/04/23 15:11 Pulse 58 06/04/23 15:11 Resp 18 06/04/23 15:11 BP 110/56 L 06/04/23 15:11 Pulse Ox 92 06/04/23 15:11 O2 Del Method Nasal Cannula 06/04/23 15:11 O2 Flow Rate 2.0 06/04/23 15:11 Oxygen Flow Rate 3 03/15/23 18:32 BMI result Body Mass Index 44.3 Const: General: alert and awake Nutritional Appearance: obese Resp: Effort & Inspection: normal respiratory effort, able to speak in complete sentences, no respiratory distress and no use of accessory muscles Cardio: Rate: regular rate GI: Inspection: Yes obesity Palpation (GI): Soft to palpation Neuro: Other: grossly nonfocal Objective Data Active Medications Acetaminophen (Acetaminophen 325 Mg Tablet) 975 mg PO TID [facility] Last Admin: 06/04/23 14:49 Dose: 975 mg Documented By: CAT Al Hydroxide/Mg Hydroxide (Magnesium Hydrox/Alum Hydrox 30 Ml Oral.Susp) 30 ml PO Q6H PRN PRN Reason: dyspepsia Albuterol Sulfate (Albuterol Sulfate 90 Mcg 8 Gm Inhaler) 2 puff INHALE Q4H PRN PRN Reason: Wheezing Aspirin (Aspirin Enteric Coated 81 Mg Tablet.) 81 mg PO DAILY [facility] Last Admin: 06/04/23 08:34 Dose: 81 mg Documented By: CAT Atorvastatin Calcium (Atorvastatin Calcium 40 Mg Tablet) 40 mg PO BEDTIME [facility] Last Admin: 06/03/23 20:46 Dose: 40 mg Documented By: FERMIN Carvedilol (Carvedilol 3.125 Mg Tablet) 3.125 mg PO BID [facility]; Protocol Last Admin: 06/04/23 08:35 Dose: 3.125 mg Documented By: CAT Clopidogrel Bisulfate (Clopidogrel Bisulfate 75 Mg Tablet) 75 mg PO DAILY [facility] Last Admin: 06/04/23 08:33 Dose: 75 mg Documented By: CAT Cyanocobalamin (Cyanocobalamin (Vitamin B-12) 1,000 Mcg/Ml Vial) 1,000 mcg IM Q30D [facility] Last Admin: 05/08/23 09:05 Dose: Not Given Documented By: ALEXA Non-Admin Reason: Patient Refused Docusate Sodium (Docusate Sodium 100 Mg Capsule) 100 mg PO BID PRN PRN Reason: Constipation Enoxaparin Sodium (Enoxaparin Sodium 40 Mg/0.4 Ml Syringe) 40 mg SUBCUT Q24H [facility] Last Admin: 06/03/23 20:45 Dose: 40 mg Documented By: FERMIN Fluticasone/Umeclidinium/Vilanterol (Fluticasone/Umeclidinium/Vilanterol 200/62.5/25 Blst.W.Dev) 1 puff INHALE RDAILY [facility] Last Admin: 06/04/23 07:35 Dose: 1 puff Documented By: JASSI Folic Acid (Folic Acid 1 Mg Tablet) 1 mg PO DAILY [facility] Last Admin: 06/04/23 08:33 Dose: 1 mg Documented By: CAT Furosemide (Furosemide 40 Mg Tablet) 40 mg PO DAILY [facility]; Protocol Last Admin: 06/04/23 08:35 Dose: 40 mg Documented By: CAT Gabapentin (Gabapentin 100 Mg Capsule) 200 mg PO BID [facility] Last Admin: 05/05/23 09:49 Dose: 200 mg Documented By: LEANN Glucose (Glucose Gel 15 Gm Gel..Gram.) 15 gm PO Q15M PRN; Protocol PRN Reason: per Hypoglycemia Standing Ord. Dextrose (D10) 250 mls @ 750 mls/hr IV Q15M PRN PRN Reason: per Hypoglycemia Standing Ord. Lactic Acid (Ammonium Lactate 12 % Lotion 226 Gm Bottle) 1 appl TOPICAL BID [facility]; Protocol Last Admin: 06/04/23 08:49 Dose: 1 appl Documented By: CAT Lactulose (Lactulose 20 Gm/30 Ml Solution) 10 gm PO DAILY PRN PRN Reason: Constipation Loratadine (Loratadine 10 Mg Tablet) 10 mg PO DAILY PRN PRN Reason: Itching Last Admin: 06/02/23 07:46 Dose: 10 mg Documented By: COTROLAN Melatonin (Melatonin 3 Mg Tablet) 6 mg PO BEDTIME PRN PRN Reason: Insomnia Last Admin: 05/05/23 20:54 Dose: 6 mg Documented By: KRYSTLE Metformin HCl (Metformin Hcl Er 500 Mg Tab.Er.24h) 500 mg PO DAILY@1800 [facility] Last Admin: 06/03/23 18:13 Dose: 500 mg Documented By: CAT Omeprazole (Omeprazole 20 Mg Capsule.Dr) 20 mg PO DAILY@0630 [facility] Last Admin: 06/04/23 06:23 Dose: 20 mg Documented By: FERMIN Ondansetron HCl (Ondansetron Hcl 4 Mg/2 Ml Vial) 4 mg IVPUSH Q8H PRN PRN Reason: Nausea and Vomiting Last Admin: 04/05/23 12:43 Dose: 4 mg Documented By: FERMIN Polyethylene Glycol (Polyethylene Glycol 3350 17 Gm Powd.Pack) 17 gm PO DAILY PRN PRN Reason: Constipation Quetiapine Fumarate (Quetiapine Fumarate 25 Mg Tablet) 25 mg PO Q8H PRN PRN Reason: anxiety/restlessness Quetiapine Fumarate (Quetiapine Fumarate 25 Mg Tablet) 12.5 mg PO TID [facility] Last Admin: 06/04/23 14:51 Dose: Not Given Documented By: CAT Non-Admin Reason: Physician Held Med Comments: Patient sedated. Arousable to speech. Respirations even and unlabored. RR 18. Senna (Sennosides 8.6 Mg Tablet) 17.2 mg PO BEDTIME [facility] Last Admin: 06/03/23 20:47 Dose: 17.2 mg Documented By: FERMIN Sertraline HCl (Sertraline Hcl 100 Mg Tablet) 100 mg PO DAILY [facility] Last Admin: 06/04/23 08:33 Dose: 100 mg Documented By: CAT Trazodone HCl (Trazodone Hcl 50 Mg Tablet) 50 mg PO BEDTIME PRN PRN Reason: insomnia Last Admin: 05/13/23 20:46 Dose: 50 mg Documented By: BINH Labs 05/30/23 10:25 06/04/23 05:03 Labs: Laboratory Results - last 24 hr 06/04/23 06/04/23 05:03 07:00 Hold Purple Top SEE NOTE Estim Creat Clear Calc 89.0 Estimated GFR > 60 POC Glucose 122 H Assessment and Plan (1) Morbid obesity with BMI of 40.0-44.9, adult: Status: Acute (2) UTI (urinary tract infection): Status: Acute Plan 72M PMH significant for?CAD, hss-xmnurih-aawcwipji diabetes type 2, who initially presented to the ED on 03/15/2023 from SNF after reportedly having hallucinations and being combative with staff. Pt was placed in physician observation in the ED until he became hypoxic and tested positive for COVID admitted to the medical floor for treatment and further evaluation of acute hypoxic respiratory failure in the setting of COVID infection and new awaiting Placement Toxic metabolic encephalopathy, Likely related to medications, change in scenery, resolved work up included head CT, CBC, BMP have been negative. Concern for oversdation with meds, previously Seroquel was lowered to 25 mg t.i.d. but since patient appeared more tired and lethargic on 05/29 reduce dose of Seroquel to 12.5 mg t.i.d. and lowered as needed Seroquel to 25 mg Q 8 hours as needed , ABG unremarkable, normal electrolytes. No behavioral issues noted since lowering dose of Seroquel on 05/30/23. UTI urine culture growing e.coli and proteus sensitive to ceftriaxone will treat with ceftriaxone and discharge with po cefuroxime lower Lumbar abcess s/p I and D, culture did not grow anything. Has completed course of Augmentin local wound care, no packing , foam dressing and change every other day , no worsening wound, no drainage Acute hypoxic respiratory failure in the setting COVID 19 infection, resolved Finished course of dexamethasone and remdesivir baseline home oxygen 2 L HTN Stable BP continue coreg and lasix morbid obesity weight loss advised Bpj-jlspyyd-yfgworxfe type 2 diabetes Blood sugars stable, continue metformin, check blood sugars at a.m., insulin sliding scale discontinued on 05/27. Was on Neurontin 300 mg t.i.d. dose was reduced to 200 mg b.i.d. , but currently on hold since patient noted to be sedated, will resume as clinically indicated. Full Code Lovenox Unable to find accepting SNF. plan will be to go home with services. requires continued hospital stay for safe disposition pending Bariatric equipments delivery and safe discharge plan . Quality Stroke Does the patient have a stroke diagnosis?: No VTE Prior VTE?: No VTE Risk Level:: Medical - moderate - high VTE Device Contraindication: Treatment Not Indicated VTE Drug Contraindication: N/A - Med Ordered
[2023-06-04 16:24] LABS: Glucose, Whole Blood 123 mg/dL (60-115)
[2023-06-04] MEDS: metFORMIN HCl ER 500 MG TAB.ER.24H PO (17:26)
[2023-06-04] MEDS: Enoxaparin Sodium 40 MG/0.4 ML SYRINGE SUBCUT (20:35)
[2023-06-04] MEDS: Sennosides 8.6 MG TABLET 17.2 MG PO (20:36)
[2023-06-04] MEDS: Atorvastatin Calcium 40 MG TABLET PO (20:36)
[2023-06-05 04:00] VITALS: BP 113/55; PULSE 56; RESP 18; TEMP 36; O2SAT 94
[2023-06-05] MEDS: Omeprazole 20 MG CAPSULE.DR PO (05:37)
[2023-06-05 07:39] LABS: Glucose, Whole Blood 96 mg/dL (60-115)
[2023-06-05] MEDS: Fluticasone/Umeclidinium/Vilanterol 200/62.5/25 BLST.W.DEV 1 PUFF INHALE (07:58)
[2023-06-05 08:00] VITALS: BP 144/64; PULSE 59; RESP 16; TEMP 36.1; O2SAT 93
[2023-06-05 08:03] VITALS: PULSE 62; RESP 18; O2SAT 93
[2023-06-05] MEDS: Furosemide 40 MG TABLET PO (08:37)
[2023-06-05] MEDS: Aspirin Enteric Coated 81 MG TABLET.DR PO (08:37)
[2023-06-05] MEDS: Folic Acid 1 MG TABLET PO (08:37)
[2023-06-05] MEDS: QUEtiapine Fumarate 25 MG TABLET 12.5 MG PO (08:38)
[2023-06-05] MEDS: Sertraline HCL 100 MG TABLET PO (08:38)
[2023-06-05] MEDS: Acetaminophen 325 MG TABLET 975 MG PO (08:39)
[2023-06-05] MEDS: Clopidogrel Bisulfate 75 MG TABLET PO (08:39)
[2023-06-05] MEDS: carvediloL 3.125 MG TABLET PO (08:39)
[2023-06-05] MEDS: Ammonium Lactate 12 % Lotion 226 GM BOTTLE 1 APPL TOPICAL (08:40)
--- NOTE | 2023-06-05 11:25 | P.DS_ITS ---
DS: Providers Provider Date of Service: 06/05/23 Date of admission: 04/02/23 19:08 Date of discharge: 06/05/23 Primary care physician: Con Urena MD Consults: 03/15/23 20:14 Consult to Care Team Routine Comment: Reason for consultation: Agitation, aggression 03/16/23 10:27 Consult to Psychiatry Stat Consulting Provider: Psych Covering Reason for consultation: New onset auditory and visual hallucinations, aggressive behavior in SNF 04/14/23 13:31 Consult to Wound Care Routine Reason for consultation: pressure injury 04/15/23 14:00 Consult to General Surgery Routine Consulting Provider: [facility] General Surgeons Reason for consultation: left mid back egg size subcutaneous mass Has provider been notified: No 04/21/23 07:31 Consult to Wound Care Routine Reason for consultation: back area boil -draining 04/22/23 09:52 Consult to General Surgery Routine Consulting Provider: [facility] General Surgeons Reason for consultation: Back boil -may need I&d Has provider been notified: No 04/30/23 18:06 Consult to Psychiatry Routine Consulting Provider: Psych Covering Reason for consultation: over sedation from meds Attending physician on discharge: Elvin Osorio Discharging clinician: Tabitha Pandey DS: Diagnosis Discharge Diagnosis (1) Morbid obesity with BMI of 40.0-44.9, adult: Status: Acute (2) UTI (urinary tract infection): Status: Acute DS: Summary Hospital Course Hospital Course: From H&P on the day of admission Pt is a 72-year-old male with a PMH significant for?CAD, eor-afsxqnu-krofnncic diabetes type 2, who initially presented presents to the ED on 03/15/2023 from [facility] after reportedly having hallucinations and being combative with staff. Patient was initially uncooperative and combative with EMS and declined being brought to the hospital. Healthcare proxy was invoked in order to bring him to the ED. a week prior patient was brought to be state but patient was non cooperative with labs and testing and was sent back to the facility without any workup. When patient presented to [facility] he had been experiencing worsening hallucinations, reportedly seeing horses, children, even dinosaurs. Workup at the hospital was negative for medical reason to explain his hallucinations. Psych was consulted and thought he may be suffering from delirium. Patient was then placed in physician observation. ?During stay patient had episode of sudden aggression, trying to punch staff, grab cords and IV lines; needed to be chemically restrained. Case management involved and initial plan at was for patient to return home with services, however after further discussion and consideration patient needs additional resources and bed search for long-term stay was undertaken. Earlier today patient was noted to be quite lethargic, and seen to be desatting to 82%. Patient tested positive for COVID, and was placed on 5 L O2. Other labs unremarkable. Patient afebrile, no tachycardia or tachypnea. No leukocytosis. CXR showed mild cardiomegaly and no evidence of pneumonia. Patient was started on dexamethasone. At time of interview and exam patient is somnolent but arousable. Answer some questions but falls back asleep immediately. Patient alert and oriented x2, not to place or situation. Denies any acute medical complaints. Patient will be admitted to the hospital medical floor for treatment and further evaluation of acute hypoxic respiratory failure in the setting of COVID infection. Hospital course by problem: Toxic metabolic encephalopathy, Likely related to medications, change in scenery, resolved work up included head CT, CBC, BMP have been negative. Concern for oversdation with meds, dose of Seroquel reduced No behavioral issues noted since lowering dose of Seroquel on 05/30/23. UTI urine culture growing e.coli and proteus sensitive to ceftriaxone will treat with ceftriaxone and discharge with po cefuroxime lower Lumbar abcess s/p I and D, culture did not grow anything. Has completed course of Augmentin local wound care, no packing , foam dressing and change every other day , no wor sening wound, no drainage Acute hypoxic respiratory failure in the setting COVID 19 infection, resolved Finished course of dexamethasone and remdesivir baseline home oxygen 2 L HTN Stable BP continue coreg and lasix HLD dose of lipitor decreased to 40 mg morbid obesity weight loss advised Ikg-syvddjg-wldmoqpla type 2 diabetes Blood sugars stable, continue metformin, check blood sugars at a.m. Was on Neurontin 300 mg t.i.d. stopped due to sedation. Initially plan was to discharge patient to short-term rehab. Accepting facility was declined by family and they ultimately elected to take the patient home with services. They have had medical supplies delivered and home services in place Time Attestation Discharge Coordination Time (in mins): 40 Quality: Safe Use of Opioids Does Pt have an Active Cancer Diagnosis on the Problem List?: No Quality: Stroke Does the patient have a stroke diagnosis?: No Physical Exam Vital Signs: Vital Signs: Last Vital Signs Temp 97.0 F 06/05/23 08:00 Pulse 62 06/05/23 08:03 Resp 18 06/05/23 08:03 BP 144/64 H 06/05/23 08:00 Pulse Ox 93 06/05/23 08:00 O2 Del Method Nasal Cannula 06/05/23 08:00 O2 Flow Rate 2 06/05/23 08:00 Oxygen Flow Rate 3 03/15/23 18:32 BMI result Body Mass Index 44.3 Const: Other: resting in bed, appears comfortable General: alert and awake Nutritional Appearance: obese Resp: Effort & Inspection: normal respiratory effort, able to speak in complete sentences, no respiratory distress and no use of accessory muscles Cardio: Rate: regular rate GI: Inspection: No distended and Yes obesity Palpation (GI): Soft to palpation and nontender Neuro: Other: grossly nonfocal General: moves all extremities Extrem: General: Yes no pedal edema DS: Data Data Completed and Pending Labs on day of discharge: Laboratory Results - last 24 hr 06/04/23 06/05/23 16:15 07:13 POC Glucose 123 H 96 Discharge Plan Discharge Anticipated Discharge Date/Time: 06/05/23 15:00 Patient Disposition: Home Health Service Discharge Diagnosis: acute on chronic hypoxic respiratory failure due to covid 19 Referrals: Physician,Unknown J [Physician] - 1 Week Discharge Medications: New cefuroxime axetil 250 mg Tablet 250 mg PO Q12H 4 Days Qty: 8 0RF atorvastatin [Lipitor] 40 mg tablet 40 mg PO BEDTIME 90 Days Qty: 90 0RF omeprazole 20 mg capsule,delayed release(DR/EC) 20 mg PO DAILY 90 Days Qty: 90 0RF quetiapine 25 mg tablet 12.5 mg PO TID 90 Days Qty: 135 0RF quetiapine 25 mg tablet 25 mg PO BID PRN (Reason: anxiety) Qty: 30 0RF (DME) FreeStyle Lite Strips Strip Qty: 100 0RF Rx Instructions: Test four times a day or as directed. (DME) blood-glucose meter [FreeStyle Lite Meter] Kit Qty: 1 0RF Rx Instructions: As Directed alcohol swabs Pads, Medicated 1 pad TOPICAL QIDACHS Qty: 100 0RF Rx Instructions: Use four times a day or as directed. (DME) lancets [FreeStyle Lancets] 28 gauge misc Qty: 100 0RF Rx Instructions: Test four times a day or as directed. Continued acetaminophen 500 mg Tablet 1,000 mg PO TID cyanocobalamin (vitamin B-12) 1,000 mcg/mL Solution 100 mcg IM QMONTH Trelegy Ellipta 200-62.5-25 mcg Blister With Device 1 inh INHALATION DAILY furosemide 40 mg tablet 40 mg PO DAILY 90 Days Qty: 90 0RF sennosides [senna] 8.6 mg Tablet 17.2 mg PO BEDTIME 90 Days Qty: 180 0RF polyethylene glycol 3350 [Miralax] 17 gram Powder In Packet 17 g PO DAILY 90 Days Qty: 100 0RF sertraline 100 mg tablet 100 mg PO DAILY 90 Days Qty: 90 0RF clopidogrel 75 mg tablet 75 mg PO DAILY 90 Days Qty: 90 0RF aspirin 81 mg Tablet,Delayed Release (Dr/Ec) 81 mg PO DAILY 90 Days Qty: 90 0RF carvedilol 3.125 mg tablet 3.125 mg PO BID 90 Days Qty: 180 0RF folic acid 1 mg Tablet 1 mg PO DAILY 90 Days Qty: 90 0RF metformin 500 mg tablet extended release 24 hr 500 mg PO DAILY 90 Days Qty: 90 0RF cholecalciferol (vitamin D3) 1,250 mcg (50,000 unit) Tablet 1,250 mcg PO WE 90 Days Qty: 13 0RF albuterol sulfate 90 mcg/actuation Hfa Aerosol Inhaler 2 puff INHALATION Q4H PRN (Reason: Wheezing) Qty: 6.7 0RF Discontinued atorvastatin 80 mg tablet 80 mg PO BEDTIME trazodone 50 mg Tablet 50 mg PO BEDTIME bupropion HCl 100 mg Tablet 100 mg PO DAILY docusate sodium [Colace] 100 mg Capsule 100 mg PO BID gabapentin 300 mg Capsule 300 mg PO TID lactulose 10 gram/15 mL Solution 10 g PO DAILY diclofenac sodium 1 % Gel 2 g TOPICAL TID Rx Instructions: apply to single elbow, wrist or hand; for hand includes palm/fingers/back of hand Discharge Orders: Discharge Order (Routine); Ordered 06/05/23 Ordered By: Tabitha Pandey Activity on Discharge: As tolerated Stand Alone Forms: Patient Portal Discharge page Print Language: Greenlandic Care Plan Goals: see below Health Concerns: covid 19 dementia Plan of Treatment: take medications as prescribed finish course of antibiotics for UTI dose of statin decreased to 40 mg uses baseline 2L NC Call to schedule a follow-up appointment with PCP Assessment: see discharge summary Discharge Date/Time: 06/05/23 13:12
--- NOTE | 2023-06-05 11:35 | W.MHC.F2F ---
Service Date Service Date: 06/05/23 Encounter Date of encounter: 06/05/23 Reasons for Services Signs and symptoms assessed: Needs residential for medication management, diabetic education; wound care - foam dressing change every other day to back Reason for residential: wound care, diabetic teaching and medication management MD Overseeing Care: Con Urena Homebound: Leaving the home is medically contraindicated at this time without the asist of a device and/or another person due th the listed conditions above and below. Reason homebound: unsteady gait / fall risk and weakness related to hospital stay Certification: Based on the above findings, I certify that this patient is confined to the home and needs intermittent residential care, physical therapy and/or speech therapy, or continues to need occupational therapy. The patient is under my care, and I have initiated the establishment of the plan of care. The patient will be followed by a physician who will periodically review the plan of care. Time Spent With Patient Time: Total time managing care of this patient today ____ minutes.
--- NOTE | 2023-06-05 11:56 | MHC.CM.PN ---
PER LONG CONVERSATION WITH DAUGHTERTHERON, (IN ROOM), PLAN IS HOME TODAY VIA [facility]. [facility] ABLE TO TRANSPORT FOR 13:00 PLAN IS HOME WITH [facility] ASSESSMENT OF NEEDS ONCE HE HAS RETURNED, AND TYPICALLY WITHIN 48 HOURS OF HOSPITAL DISCHARGE. PER DAUGHTER, THE IN WILL PROVIDE P.T AN O.T. SERVICES. DAUGHTER FEELS THE BARIATRIC BED THAT WAS DELIVERED IS TOO SMALL/. LAUNDRY TECH INFORMED DAUGHTER THAT PATIENT IS ABLE TO ADJUST HIMSELF NEEDED, AND SAT UP TO THE EDGE OF THE BED YESTERDAY WITH FEET ON FLOOR. PATIENT IS ALSO ABLE TO FEED HIMSELF, BUT DECIDES WHEN HE WILL AND WHEN HE WOULD LIKE ASSISTANCE WITH FEED. PATIENT IS ABLE TO ROLL HIMSELF FOR HYGIENE AND SKIN CARE AND USES THE URINAL INDEPENDENTLY. HE DOES NOT PREFER THIS METHOD, AND DAUGHTER STATES THAT HE USES A PITCHER AT HOME NEEDED. DAUGHTER SENT HOME WITH HYGIENE SUPPLIES FOR PATIENT, WELL FOAM DRESSING AND BARRIER CREAM, AND GLOVES FOR FAMILY TO DON WHILE CLEANING PATIENT. DAUGHTER REMINDED THAT PATIENT IS ABLE TO ASSIST IN HIS CARE. RN AND UNIT AWARE OF PLAN FOR DC.
[2023-06-05] MEDS: cefuroxime axetiL 250 MG TABLET PO (11:58)
== END 2023-06-05 13:12 | disposition home health service (06) | DRG 177 ==
LOC: HO.ED 04-02 19:13 → HO.EDOVER 04-02 19:55 → HO.IMC 04-03 00:15 → HO.S3 05-07 17:39
PROVIDERS: Emergency Medicine; Hospitalist; Internal Medicine; Physician Assistant Medical; Psychiatry & Neurology Psychiatry; Social Worker; Student in an Organized Health Care Education/Training Program; Admitting Provider Student in an Organized Health Care Education/Training Program; Emergency Provider Emergency Medicine Emergency Medical Services; PCP Family Medicine Geriatric Medicine; Visit Provider Physician Assistant Medical
DX: U07.1 COVID-19 (principal); G92.8 Other toxic encephalopathy; J96.21 Acute and chronic respiratory failure with hypoxia; F05 Delirium due to known physiological condition; F03.911 Unspecified dementia, unspecified severity, with agitation; Z68.41 Body mass index [BMI] 40.0-44.9, adult; L02.212 Cutaneous abscess of back [any part, except buttock and flank]; N39.0 Urinary tract infection, site not specified; I25.10 Atherosclerotic heart disease of native coronary artery without angina pectoris; E86.0 Dehydration; E11.65 Type 2 diabetes mellitus with hyperglycemia; F39 Unspecified mood [affective] disorder; D17.1 Benign lipomatous neoplasm of skin and subcutaneous tissue of trunk; J45.30 Mild persistent asthma, uncomplicated; H26.9 Unspecified cataract; B96.20 Unspecified Escherichia coli [E. coli] as the cause of diseases classified elsewhere; B96.4 Proteus (mirabilis) (morganii) as the cause of diseases classified elsewhere; E78.5 Hyperlipidemia, unspecified; E66.01 Morbid (severe) obesity due to excess calories; Z74.01 Bed confinement status; Z99.81 Dependence on supplemental oxygen; Z79.82 Long term (current) use of aspirin; Z79.899 Other long term (current) drug therapy
CPT/HCPCS: 0241U; 36415; 36600; 70450; 71045; 76705; 80048; 80053; 80061; 80076; 80307; 81001; 81003; 82140; 82565; 82607; 82728; 82746; 82803; 82947; 83540; 83605; 83735; 83880; 84443; 85025; 85027; 87040; 87070; 87086; 87088; 87186; 87205; 87493; 87507; 87635; 92526; 92610; 93005; 94640; 97110; 97112; 97162; 97167; 97530; 99285; J0248; J0696; J1100; J1200; J1630; J1650; J2359; J2405; J3420; J3486; J8540; S9485

== ENCOUNTER → 2023-03-15 19:12 | Outpatient (BNV) | payer OTHER, SELFPAY | PROVIDERS: Emergency Provider Emergency Medicine Emergency Medical Services; Visit Provider Social Worker | DX: F03.90 Unspecified dementia, unspecified severity, without behavioral disturbance, psychotic disturbance, mood disturbance, and anxiety (principal) | CPT/HCPCS: 99232; 99284; 99285 ==

== ENCOUNTER → 2023-03-16 12:52 | Outpatient (BNV) | payer OTHER, SELFPAY | PROVIDERS: Emergency Provider Emergency Medicine Emergency Medical Services; Visit Provider Internal Medicine Cardiovascular Disease | DX: I44.0 Atrioventricular block, first degree (principal); I45.10 Unspecified right bundle-branch block | CPT/HCPCS: 93010 ==

== ENCOUNTER → 2023-04-02 19:08 | Outpatient (BNV) | payer OTHER, SELFPAY | PROVIDERS: Admitting Provider Student in an Organized Health Care Education/Training Program; Emergency Provider Emergency Medicine Emergency Medical Services; Visit Provider Student in an Organized Health Care Education/Training Program | DX: E66.01 Morbid (severe) obesity due to excess calories (principal); Z68.41 Body mass index [BMI] 40.0-44.9, adult; N39.0 Urinary tract infection, site not specified | CPT/HCPCS: 99223; 99231; 99232; 99233; 99239; 99499; G0180 ==

== ENCOUNTER → 2023-04-02 19:08 | Outpatient (BNV) | payer OTHER, SELFPAY | PROVIDERS: Admitting Provider Student in an Organized Health Care Education/Training Program; Emergency Provider Emergency Medicine Emergency Medical Services; PCP Family Medicine Geriatric Medicine; Visit Provider Surgery | DX: L72.0 Epidermal cyst (principal); L02.212 Cutaneous abscess of back [any part, except buttock and flank] | CPT/HCPCS: 99222; 99232 ==